=== PATIENT | male | born 1955 | race Caucasian/White ===

== ENCOUNTER → 2016-05-02 | Outpatient (CLI) | payer OTHER ==
[~2016-05-02] MED LIST: ABACTAB11 PO; ASPI81TA28 PO; ATOR10TA82 PO; CMD/25 PO; CYAN10004 SL; DARU600T2 PO; DULO60CA44 PO; ENOX120I SQ; ENOX80IN SQ; FLUT0.15 NAE; GLC/500 PO; HYDR-5688 PO; IMDSR30 PO; ISOS30TA3 PO; LISI-789 PO; LPT40 PO; MELO15TA4 PO; METO-217 PO; METO25TA56 PO; NRN/600 PO; NTRSLP4 SL; OXYB1TAB31 PO; PLV75 PO; PRLSR20 PO; RITO100T PO; TPRSR50 PO; VENL150T33 PO
[2016-05-03 16:31] LABS: LSP % CELLS ANALYZED CD4 28 % (30-61); LSP ABSOLUTE CT CD4 566 cells/uL (490-1740); LSP LYMPHOCYTES ABSOLUTE 2010 cells/uL (850-3900)
== END | disposition home or self-care (01) ==
LOC: C.LABBC 08:49
PROVIDERS: ATTEND Internal Medicine Infectious Disease
DX: B20 Human immunodeficiency virus [HIV] disease (principal)

== ENCOUNTER 2016-05-18 05:51 | Observation (INO) | payer OTHER ==
[2016-05-15 15:49] VITALS: BMI 24.0
--- NOTE | 2016-05-17 11:41 | HISTORY & PHYSICAL EXAMINATION ---
DATE OF ADMISSION: 05/18/2016 CHIEF COMPLAINT: Lower extremity weakness, claudication and inability to ambulate distances. WORKING DIAGNOSIS: Severe stenosis L3-L4, L4-L5, lesser at L5-1 and instability at L5-S1 with spondylolisthesis. He is being preoped for surgery tomorrow, decompression, laminectomy L3-4 and L4-5, possible instrumentation L5-S1 with spondylolisthesis. PAST MEDICAL HISTORY: Positive for angina, myocardial infarction in 2012, high cholesterol, abnormal EKG. Positive stress tests, anxiety, numbness, tingling. Positive for diabetes, positive DVT. Also history of arthritis, acid reflux. History of GERD, HIV positive, macular degeneration. SOCIAL HISTORY: Relocated from [place], [place]; reformed smoker. FAMILY HISTORY: Negative. ALLERGIES: PENICILLIN. MEDICATIONS: Listed and they are numerous. REVIEW OF SYSTEMS: Negative fevers, sweats, chills, night sweats. Denies any change in vision. No current angina, palpitations. No shortness of breath. Negative for diarrhea or constipation. No vomiting. No frequency, dysuria, hematuria. Positive for weakness, seizure activity. Positive for back pain, lower extremity difficulty. PHYSICAL EXAMINATION: VITAL SIGNS: Blood pressure 130/80, pulse of 80, respirations 18, O2 sat 90%. HEENT: Pupils react to light and accommodation. Ear, nose and throat clear. NECK: Supple, no masses. LUNGS: Clear to auscultation. CARDIAC: Regular rate and rhythm. No rubs, gallops or arrhythmias. NEUROLOGIC: Demonstrates some weakness of dorsiflexion, plantarflexion, quadriceps and iliopsoas strength. IMAGES: Demonstrate severe stenosis at L3-L4, L4-L5, lesser at L5-S1; instability L5-S1 and spondylolisthesis. IMPRESSION: Multilevel lumbar spinal stenosis, history of deep venous thrombosis, gastroesophageal reflux disease, HIV positive, history of macular degeneration, diabetes mellitus, coronary artery disease. DISPOSITION: He is scheduled for surgery tomorrow at [facility], which is the 18 of May. General anesthetic. The surgery will be approximately 2.5 hours in length. He will be hospitalized for 2 or 3 days. He may be a good candidate for rehabilitation. He is also being treated for his DVT, will be bridged and restarted up on medication, approximately 24 hours after his lumbar spine surgery.
[2016-05-18] VITALS (11 sets, daily range): BP systolic 94–130; BP diastolic 61–78; PULSE 55–99; TEMP 36.4–36.7; O2SAT 89–98; Ht 185.4 cm; Wt 83.2 kg
[~2016-05-18] VITALS: Ht 185.4 cm; Wt 83.2 kg
[~2016-05-18 05:51] MED LIST changes: -ATOR10TA82 PO; +ATOR10TA88 PO; -CYAN10004 SL; -DULO60CA44 PO; -ENOX120I SQ; -FLUT0.15 NAE; -HYDR-5688 PO; -IMDSR30 PO; -LPT40 PO; -METO-217 PO; -NTRSLP4 SL; -PLV75 PO; -TPRSR50 PO; -VENL150T33 PO
[2016-05-18] MEDS ORDERED: LACTATED RINGER'S 1000ML 1,000 ML IV SCH (06:00)
[2016-05-18] MEDS ORDERED: NSS 1000ML IV SCH (06:00)
[2016-05-18] MEDS ORDERED: LACTATED RINGER'S 1000ML IV SCH (06:00)
[2016-05-18] MEDS ORDERED: CLINDAMYCIN 600 MG/54 ML D5W 54 ML IV SCH (06:00)
[2016-05-18] MEDS ORDERED: FENTANYL CITRATE INJ 50 MCG/1 ML 2 ML VIAL ONE ×3 (06:19→09:56)
[2016-05-18] MEDS ORDERED: ONDANSETRON INJ 2 MG/ML 2 ML VIAL ONE (06:19)
[2016-05-18] MEDS ORDERED: PROPOFOL IV EMULSION 10 MG/ML 20 ML VIAL IV ONE (06:19)
[2016-05-18] MEDS ORDERED: MIDAZOLAM HCL 1 MG/ML 2ML VIAL ONE (06:19)
[2016-05-18] MEDS ORDERED: DEXAMETHASONE SOD INJ 4 MG/ML VIAL ONE (06:19)
[2016-05-18] MEDS ORDERED: ROCURONIUM BROMIDE 10 MG/ML 5 ML VIAL ONE ×3 (06:19→09:16)
[2016-05-18] MEDS ORDERED: LIDOCAINE HCL 2% 2 ML VIAL (20MG/ML) ONE ×2 (06:19→08:43)
[2016-05-18] MEDS ORDERED: NovoLIN-R INSULIN PER UNIT CHARGE ONE (06:44)
[2016-05-18 07:06] LABS: INR 0.9 (0.9-1.1); PROTHROMBIN TIME (PATIENT) 9.9 SECONDS (9.0-12.0)
--- NOTE | 2016-05-18 07:22 | History & Physical Bridge Note ---
H&P Re-Evaluation Bridge Note: I have examined the patient, reviewed the History & Physical and in the interval since the performance of the History & Physical I have noted the following changes of clinical significance: No changes noted
[2016-05-18] MEDS ORDERED: EpHEDrine SULFATE INJ 50 MG/ML AMP IV PRN (07:30)
[2016-05-18] MEDS ORDERED: ONDANSETRON INJ 2 MG/ML 2 ML VIAL IV PRN ×2 (07:30→10:00)
[2016-05-18] MEDS ORDERED: ATROPINE SULFATE 0.1 MG/ML 5ML SYR IV PRN (07:30)
[2016-05-18] MEDS ORDERED: KETAMINE HCL INJ 50 MG/ML 10 ML VIAL ONE (08:15)
[2016-05-18] MEDS ORDERED: ALBUMIN HUMAN 5% 12.5 GM/250 ML VIAL IV ONE (08:23)
[2016-05-18] MEDS ORDERED: NEOSTIGMINE METHYLSULFATE 5 MG/5 ML SYR ONE (09:16)
[2016-05-18] MEDS ORDERED: GLYCOPYRROLATE INJ 0.2 MG/ML VIAL ONE (09:16)
[2016-05-18] MEDS ORDERED: VASOPRESSIN 20 UNIT/ML VIAL ONE (09:22)
[2016-05-18] MEDS ORDERED: BACITRACIN 50000 UNIT VIAL IR ONE (09:29)
[2016-05-18] MEDS ORDERED: VANCOMYCIN HCL 1000MG/20ML VIAL TOP ONE (09:29)
[2016-05-18] MEDS ORDERED: BUPIVACAINE/EPINEPHRINE 0.5% MPF 1:200,000 30 ML VIAL INJ ONE (09:29)
[2016-05-18] MEDS ORDERED: THROMBIN FOR SOLN 20000 UNIT KIT TOP ONE (09:29)
[2016-05-18] MEDS ORDERED: GELATIN SPONGE SZ 100 TOP ONE (09:29)
--- NOTE | 2016-05-18 09:53 | [facility] Post Operative Brief Note ---
Immediate Operative Summary Operative Date May 18, 2016. Pre-Operative Diagnosis multilevel lumbar spinal stenosis Post-Operative Diagnosis multilevel lumbar spinal stenosis Procedure(s) Performed L3-L4, L4-L5 Laminectomy and L5-S1 Surgeon Dr. Gianluca Aden Software Engineer Intern Surgeon(s) Maikel Durbin PA-C Estimated Blood Loss 250ml Findings severe stenosis Specimens none per surgeon Dr. Gianluca Aden Complication(s) None Disposition Recovery Room / PACU
[2016-05-18] MEDS ORDERED: METOCLOPRAMIDE HCL INJ 5 MG/ML 2 ML VIAL IV PRN (10:00)
[2016-05-18] MEDS ORDERED: MAGNESIUM HYDROXIDE SUSP 30 ML UDC PO PRN (10:00)
[2016-05-18] MEDS ORDERED: LORAZEPAM INJ 1 MG in SYRINGE 0.5 ML IV PRN (10:00)
[2016-05-18] MEDS ORDERED: PROMETHAZINE HCL INJ 12.5 MG in SODIUM CHLORIDE 0.9% 50ML 50 ML IV PRN (10:00)
[2016-05-18] MEDS ORDERED: LORAZEPAM 1 MG TAB PO PRN (10:00)
[2016-05-18] MEDS ORDERED: HYDROmorphone INJ 2 MG/ML SYR/VIAL IV PRN (10:00)
[2016-05-18] MEDS ORDERED: ACETAMINOPHEN 325 MG TAB PO PRN (10:00)
[2016-05-18] MEDS ORDERED: OXYCODONE/ACETAMINOPHEN 5-325 TAB PO PRN (10:00)
--- NOTE | 2016-05-18 10:00 | DIAGNOSTIC IMAGING REPORT ---
INTRAOPERATIVE LUMBAR SPINE SINGLE VIEW CLINICAL HISTORY: L3-S1 LAMINECTOMY POSSIBLE FUSION COMPARISON STUDY: Outside lumbar spine dated 03/15/2016 FINDINGS: 2.5 seconds of fluoroscopic time was utilized. There are posterior skin retractors present. There is a grade 1 spondylolisthesis of L5 on S1. There is a metallic probe with its tip at the level of the posterior elements at the L5-S1 level. There is a second metallic probe with its tip projected over the posterior elements at the L3 level. IMPRESSION: Intraoperative localization fluoroscopic spot image as described above. Electronically signed by: Lane Mcclure M.D. 05/18/2016 9:57 AM Dictated Date/Time: 05/18/2016 9:56 AM
--- NOTE | 2016-05-18 10:08 | OPERATIVE REPORT ---
DATE OF OPERATION: 05/18/2016 PREOPERATIVE DIAGNOSIS: Severe stenosis of the spine, L3-L4, L4-L5, and L5-S1. POSTOPERATIVE DIAGNOSIS: Same. PROCEDURE: Include laminectomy L3-L4, L4-L5, and L5-S1 lumbar, and a posterior lateral fusion bone graft only, posterolateral fusion L3 to 4 to 5, 2 level fusion, note implants, no instrumentation, no pedicle screws. SURGEON: Dr. Aden. FLOOR COVERING PRINTER ASSISTANT: Maikel Durbin PA-C. COMPLICATIONS: Zero. BLOOD LOSS: 250. Sponge and needle count correct at the close of the procedure. OPERATION AND FINDINGS: The patient was taken to the operating room and general intubated anesthetic provided to the patient, placed prone, prepped and draped sterile. We took an x-ray. We knew the area location. We made a skin incision, fascial incision and put in some deep self-retaining retractors. We did decompress carefully the neural elements from L5-S1, L4-L5 and L3-L4 foraminotomies, partial facetectomy. We protected each and every nerve. There was no injury to the dura, nerve roots or vascular structures. I assessed stability. I did not feel there was any gross instability. We did sacrifice one-half of 1 facet at L3-L4 on the left hand side. There did not appear to be any spondylolisthesis. We did bone graft this with a combination of allograft and autograft over the transverse process of 3, 4 and 5. This was done bilaterally. We had irrigated thoroughly with about 600 mL of fluid, placed some Gelfoam over the dural structures that was exposed, vancomycin powder, closed over Hemovac drain with 1 Vicryl, 2-0 and staple gun on the skin. Sterile dressings applied. The patient returned to PACU stable. No apparent interoperative medical or anesthetic complications. I attest to the content of the Intraoperative Record and any orders documented therein. Any exceptio ns are noted below.
[2016-05-18] MEDS: FENTANYL CITRATE INJ 50 MCG/1 ML 2 ML VIAL IV PRN ×4 (10:20→10:35)
[2016-05-18] MEDS ORDERED: ALBUT/IPRATROP 3MG/0.5MG NEB 3 ML VIAL INH PRN (10:30)
[2016-05-18] MEDS: HYDROmorphone INJ 1 MG/ML SYR IV PRN ×6 (10:40→21:17)
--- NOTE | 2016-05-18 11:21 | Anesthesiology Progress Note ---
Anesthesia Post Op Note Date & Time May 18, 2016 at 11:21 Vital Signs Pain Intensity: 8 Vital Signs Past 12 Hours Date Time Temp Pulse Resp B/P Pulse Ox O2 Delivery O2 Flow Rate FiO2 05/18/16 11:13 37.6 05/18/16 11:08 97/66 05/18/16 11:05 86 16 97 05/18/16 11:05 86 16 05/18/16 11:03 92/59 05/18/16 11:00 85 16 95 05/18/16 11:00 84 16 05/18/16 10:59 83 16 99 05/18/16 10:59 83 16 05/18/16 10:58 105/60 05/18/16 10:54 84 16 05/18/16 10:54 83 16 94 05/18/16 10:53 97/58 05/18/16 10:51 85 16 97 05/18/16 10:51 85 16 05/18/16 10:48 98/64 05/18/16 10:46 84 16 05/18/16 10:46 84 16 95 05/18/16 10:43 105/60 05/18/16 10:41 82 16 88 05/18/16 10:41 82 16 05/18/16 10:40 102/65 05/18/16 10:39 80 16 95 05/18/16 10:39 81 16 05/18/16 10:34 79 16 100 05/18/16 10:34 79 16 05/18/16 10:33 81 12 101/60 100 05/18/16 10:33 80 12 05/18/16 10:28 78 12 05/18/16 10:28 79 12 99/62 100 05/18/16 10:23 83 25 99/61 95 05/18/16 10:23 83 25 05/18/16 10:18 87 12 102/62 100 05/18/16 10:18 87 12 05/18/16 10:17 86 18 100 05/18/16 10:17 86 18 05/18/16 10:13 108/65 05/18/16 10:12 86 16 05/18/16 10:12 86 16 99 05/18/16 10:10 107/70 05/18/16 10:07 93 24 05/18/16 10:07 93 24 99 05/18/16 10:03 115/71 05/18/16 10:02 94 21 05/18/16 10:02 94 21 98 05/18/16 09:58 119/69 05/18/16 09:57 97 20 97 05/18/16 09:57 97 20 05/18/16 09:53 94/63 05/18/16 09:52 36.4 98 18 112/65 97 Mask 10 05/18/16 09:52 98 17 05/18/16 09:52 98 17 97 05/18/16 06:34 36.6 85 20 118/76 97 Room Air Notes Mental Status: alert / awake / arousable, participated in evaluation Pt Amnestic to Procedure: Yes Nausea / Vomiting: adequately controlled Pain: adequately controlled, improving with treatment Airway Patency, RR, SpO2: stable & adequate BP & HR: stable & adequate Hydration State: stable & adequate Anesthetic Complications: no major complications apparent
[2016-05-18] MEDS: SODIUM CHLORIDE 0.9% 1000ML 1,000 ML IV SCH ×2 (12:15→21:50)
[2016-05-18] MEDS ORDERED: IV FLUIDS COMPLETED PRN (12:15)
[2016-05-18] MEDS ORDERED: HydrALAZINE HCL 20 MG/ML VIAL IV. PRN (13:45)
[2016-05-18] MEDS ORDERED: GLUCOSE 10 TABS/TUBE PO PRN (14:00)
[2016-05-18] MEDS ORDERED: DEXTROSE 50% 50 ML SYR IV PRN (14:00)
[2016-05-18] MEDS ORDERED: GLUCOSE 40% GEL 15 GM TUBE PO PRN (14:00)
[2016-05-18] MEDS ORDERED: GLUCAGON FOR INJ 1 MG VIAL SQ PRN (14:00)
[2016-05-18] MEDS: DEXAMETHASONE INJ 10 MG in SYRINGE 0 ML IV SCH ×2 (14:07→21:50)
[2016-05-18] MEDS: GABAPENTIN 600 MG TAB PO SCH ×2 (14:07→21:16)
--- NOTE | 2016-05-18 14:33 | Medical Consult ---
Consultation Date of Consultation: May 18, 2016. Attending Physician: Gianluca Aden DO Reason for Consultation: Medical management History of Present Illness Patient is a pleasant 60 y/o male, with PMHx of CAD s/p IL, angina, anxiety, T2DM, GERD, HIV+, DVT, HDL, macular degeneration, s/p decompression and laminectomy of L3-4 and L4-5 on 05/[address] Aden. Patient is feeling a little groggy postop. Denies any nausea or vomiting. Pain is currently well controlled. No passing gas/BM. Patient denies any fever, chills, sweats, lightheadedness, dizziness, vision changes, CP, palpitations, edema, SOB, wheezing, cough, abdominal pain, nausea, vomiting, diarrhea, urinary symptoms, melena, numbness/tingling, weakness, muscle/joint pain, anxiety/depression, active bleeding, or new skin discoloration/changes. Past Medical/Surgical History 1. CAD s/p [place] in 2012 2. Angina 3. Anxiety 4. T2DM 5. GERD 6. Macular degeneration 7. HIV + 8. Urinary incontinence 9. DVT 10. HDL Family History 1. Cardiac disorder 2. Cancer Social History Smoking Status: Former Smoker Housing Status: lives alone Occupation Status: retired (Worked at [employer] ) Allergies Coded Allergies: Penicillins (Unverified Allergy, Mild, RASH, 05/18/16) Current Inpatient Medications Current Inpatient Medications Medications (Trade) Dose Ordered Sig/Margot Route Start Time Stop Time Status Last Admin Dose Admin Sodium Chloride 1,000 ml @ 15 mls/hr Q24H IV 05/18/16 06:00 05/19/16 05:59 05/18/16 07:05 15 MLS/HR Clindamycin Phosphate (Cleocin 600mg/ 54ml D5W) 54 ml @ 100 mls/hr PREOP IV 05/18/16 06:00 05/18/16 18:00 05/18/16 07:32 100 MLS/HR Acetaminophen (Tylenol Tab) 650 mg Q6H PRN PO 05/18/16 10:00 06/17/16 09:59 Hydromorphone HCl (Dilaudid Inj) 1 mg Q3H PRN IV 05/18/16 10:00 06/01/16 09:59 05/18/16 13:03 1 MG Hydromorphone HCl 1.5 mg 1.5 mg Q3H PRN IV 05/18/16 10:00 06/01/16 09:59 Promethazine HCl/ Sodium Chloride (Phenergan Inj/ Nss 50ml) 50.5 ml @ 202 mls/hr Q6H PRN IV 05/18/16 10:00 06/17/16 09:59 Ondansetron HCl (Zofran Inj) 4 mg Q6H PRN IV 05/18/16 10:00 06/17/16 09:59 Metoclopramide HCl (Reglan Inj) 10 mg Q6H PRN IV 05/18/16 10:00 06/17/16 09:59 Lorazepam 1 mg 1 mg Q6H PRN PO 05/18/16 10:00 06/17/16 09:59 Lorazepam/Syringe (Ativan Inj/ Syringe) 1 ml @ 1 mls/min Q6H PRN IV 05/18/16 10:00 06/17/16 09:59 Polyethylene (Miralax Powder Packet) 17 gm DAILY PO 05/19/16 09:00 06/18/16 08:59 Bisacodyl (Dulcolax Tab) 5 mg DAILY PRN PO 05/19/16 06:00 06/18/16 05:59 Bisacodyl (Dulcolax Supp) 10 mg DAILY PRN VA 05/19/16 06:00 06/18/16 05:59 Magnesium Hydroxide (Milk Of Magnesia Susp) 30 ml DAILY PRN PO 05/18/16 10:00 06/17/16 09:59 Diphenhydramine HCl (Benadryl Cap) 25 mg Q6H PRN PO 05/18/16 10:00 06/17/16 09:59 Oxycodone/ Acetaminophen (Percocet 5-325mg Tab) 1 tab Q4H PRN PO 05/18/16 10:00 06/01/16 09:59 Oxycodone/ Acetaminophen 2 tab 2 tab Q4H PRN PO 05/18/16 10:00 06/01/16 09:59 Clindamycin Phosphate 600 mg/ Dextrose 54 ml @ 100 mls/hr Q8H IV 05/18/16 16:00 05/19/16 00:33 Dexamethasone Sodium Phosphate 10 mg/Syringe 2.5 ml @ 1 mls/min Q8H IV 05/18/16 14:00 05/19/16 22:03 Sodium Chloride (Nss 1000ml) 1,000 ml @ 80 mls/hr [id number] IV 05/18/16 09:49 06/17/16 09:48 05/18/16 12:15 80 MLS/HR Aspirin (Ecotrin Tab) 81 mg QAM PO 05/19/16 09:00 06/18/16 08:59 Atorvastatin Calcium (Lipitor Tab) 10 mg HS PO 05/18/16 21:00 06/17/16 20:59 Gabapentin (Neurontin Tab) 600 mg TID PO 05/18/16 14:00 06/17/16 13:59 Isosorbide Mononitrate (Imdur Ext Rel Tab) 60 mg QAM PO 05/19/16 09:00 06/18/16 08:59 Lisinopril (Zestril Tab) 2.5 mg QAM PO 05/19/16 09:00 06/18/16 08:59 Metformin HCl (Glucophage Tab) 500 mg QAM PO 05/19/16 09:00 06/18/16 08:59 Metoprolol Tartrate (Lopressor Tab) 25 mg BID PO 05/18/16 21:00 06/17/16 20:59 Oxybutynin Chloride (Ditropan-Xl Tab) 5 mg QAM PO 05/19/16 09:00 06/18/16 08:59 Abacavir/ Lamivudine (Epzicom) 1 tab QAM PO 05/19/16 09:00 06/18/16 08:59 Non-Formulary Medication (Darunavir Ethanolate (Prezista)) 600 mg BID PO 05/18/16 21:00 06/17/16 20:59 UNV Meloxicam (Mobic Tab) 15 mg QAM PO 05/19/16 09:00 06/18/16 08:59 Omeprazole (Prilosec - Substitute) 20 mg QAM PO 05/19/16 09:00 06/18/16 08:59 Ritonavir (Norvir) 100 BID PO 05/18/16 21:00 06/17/16 20:59 Albuterol/ Ipratropium (Duoneb) 3 ml ONE PRN INH 05/18/16 10:30 05/18/16 15:30 Miscellaneous (Iv Fluids Completed) 1 ea PRN PRN N/A 05/18/16 12:15 05/18/17 12:14 Physical Exam Date Time Temp Pulse Resp B/P Pulse Ox O2 Delivery O2 Flow Rate FiO2 05/18/16 13:11 96 18 96/61 95 Nasal Cannula 2.0 05/18/16 12:40 36.4 85 16 107/61 96 Room Air 05/18/16 12:10 95 Nasal Cannula 2.0 05/18/16 12:10 95 Nasal Cannula 2.0 05/18/16 12:10 36.6 55 16 108/68 95 Nasal Cannula 2.0 05/18/16 12:00 105/69 05/18/16 11:55 86 16 05/18/16 11:55 85 16 97 05/18/16 11:50 87 19 05/18/16 11:50 86 19 98 05/18/16 11:49 88 18 98 05/18/16 11:49 89 18 05/18/16 11:47 116/82 05/18/16 11:44 87 16 95 05/18/16 11:44 88 16 05/18/16 11:39 88 16 95 05/18/16 11:39 88 16 05/18/16 11:34 88 13 95 05/18/16 11:34 87 13 05/18/16 11:29 86 14 05/18/16 11:29 85 14 96 05/18/16 11:28 100/62 05/18/16 11:25 87 14 05/18/16 11:25 87 14 96 05/18/16 11:20 85 16 97 05/18/16 11:20 85 16 05/18/16 11:19 85 16 05/18/16 11:19 85 16 94 05/18/16 11:18 104/63 05/18/16 11:14 83 15 100/59 96 05/18/16 11:14 84 15 05/18/16 11:13 87/59 05/18/16 11:13 37.6 05/18/16 11:09 85 16 05/18/16 11:09 84 16 97 05/18/16 11:08 97/66 1/19/17 11:05 86 16 97 05/18/16 11:05 86 16 05/18/16 11:03 92/59 05/18/16 11:00 85 16 95 05/18/16 11:00 84 16 05/18/16 10:59 83 16 99 05/18/16 10:59 83 16 05/18/16 10:58 105/60 05/18/16 10:54 84 16 05/18/16 10:54 83 16 94 05/18/16 10:53 97/58 05/18/16 10:51 85 16 97 05/18/16 10:51 85 16 05/18/16 10:48 98/64 05/18/16 10:46 84 16 05/18/16 10:46 84 16 95 05/18/16 10:43 105/60 05/18/16 10:41 82 16 88 05/18/16 10:41 82 16 05/18/16 10:40 102/65 05/18/16 10:39 80 16 95 05/18/16 10:39 81 16 05/18/16 10:34 79 16 100 05/18/16 10:34 79 16 05/18/16 10:33 81 12 101/60 100 05/18/16 10:33 80 12 05/18/16 10:30 79 16 98 Nasal Cannula 4.0 05/18/16 10:28 78 12 05/18/16 10:28 79 12 99/62 100 05/18/16 10:23 83 25 99/61 95 05/18/16 10:23 83 25 05/18/16 10:18 87 12 102/62 100 05/18/16 10:18 87 12 05/18/16 10:17 86 18 100 05/18/16 10:17 86 18 05/18/16 10:13 108/65 05/18/16 10:12 86 16 05/18/16 10:12 86 16 99 05/18/16 10:10 107/70 05/18/16 10:07 93 24 05/18/16 10:07 93 24 99 05/18/16 10:03 115/71 05/18/16 10:02 94 21 05/18/16 10:02 94 21 98 05/18/16 09:58 119/69 05/18/16 09:57 97 20 97 05/18/16 09:57 97 20 05/18/16 09:53 94/63 05/18/16 09:52 36.4 98 18 112/65 97 Mask 10 05/18/16 09:52 98 17 05/18/16 09:52 98 17 97 05/18/16 06:34 36.6 85 20 118/76 97 Room Air General Appearance: WD/WN, no apparent distress Head: normocephalic, atraumatic Eyes: normal inspection, PERRL ENT: hearing grossly normal Neck: supple Respiratory/Chest: lungs clear, no respiratory distress, no accessory muscle use Cardiovascular: regular rate, rhythm, no edema, normal peripheral pulses Abdomen/GI: non tender, soft, + pertinent finding (hypoactive BS ) Extremities/Musculoskelatal: no calf tenderness, no pedal edema, + pertinent finding (SCDs on ) Neurologic/Psych: alert, normal mood/affect, oriented x 3 Skin: normal color, warm/dry, no rash Laboratory Results Last 24 Hours Test 05/18/16 06:27 05/18/16 06:29 05/18/16 07:19 05/18/16 08:59 Prothrombin Time 9.9 SECONDS Prothromb Time International Ratio 0.9 Activated Partial Thromboplast Time 25.4 SECONDS Partial Thromboplastin Ratio 1.0 Bedside Glucose 231 mg/dl 157 mg/dl Test 05/18/16 10:01 Bedside Glucose 201 mg/dl Assessment & Plan 60 y/o male, with PMHx of CAD s/p IL, angina, anxiety, T2DM, GERD, HIV+, DVT, HDL, macular degeneration, s/p decompression and laminectomy of L3-4 and L4-5 on 05/[address] Aden - Pain management, PT/OT, and DVT prophylaxis as per primary team - Follow CBC and PRP CAD s/p IL in 2013: - Continue Imdur 30 mg PO daily - Continue Metoprol 25 mg PO BID - Continue ASA 81 mg PO daily Degenerative disease: - Hold Mobic 15 mg PO daily- check kidney function prior to restarting - Gabapentin 600 mg PO TID T2DM: - Hold Metformin 500 mg PO BID - BSG ACHS - Sliding insulin scale - Hold Lisinopril 2.5 mg PO daily- denies hx of HTN- check kidney function prior to restarting -- Added Hydralazine 10 mg IV q6 hrs PRN for sbp >170 or dbp >100 Hyperlipidemia: - Continue Atorvastatin 20 mg PO daily hx of DVT (right lower extremity): - Anticoagulation was d/c'd due to procedure. Spoke with Dr. Aden, may resume anticoagulation ~30 hours postop- he is OK with resuming tomorrow (05/19) evening. - U/S of right lower extremity on 04/04/16- There is extensive nonocclusive deep venous thrombosis seen throughout the extremity, extending from the proximal superficial femoral vein into the calf. The common femoral vein is patent and normally compressible. The greater saphenous vein and the profunda femoris vein at the junction with the common femoral vein are clear. GERD: - Protonix 40 mg PO daily HIV+ - Continue home regimen DVT prophylaxis: - As per primary team - MAURA and SCDs Dispo: - Discharge as per primary team - Patient lives in apartment alone Thank you for this consultation. We will continue to follow throughout hospital stay. Attending Consult Note & Attestation: Pt seen/examined, chart reviewed, and care plan d/w RAJAT Cordova. I agree w/ the the duenas components of her documentation. 60yo male with known HIV+ status, CAD s/p IL, T2DM, hyperlipidemia, and recent RLE DVT in 03/2016 who presented today for elective lumbar laminectomy procedure by Dr. Gianluca Aden. He was bridged with lovenox injections until yesterday (was on coumadin prior). He reports several months of dyspnea on exertion and nightsweats but no weight loss. Appetite has been normal. HIV is being managed by Dr. Constance Smyth. In the PACU apparently the patient experienced mild dyspnea but no chest pain. He was given NC O2 with relief of symptoms. During my visit he denies any cp, orthopnea, or sob. Denies cough. PMH, PSH, allergies, meds, sochx, famhx, ros - reviewed vitals stable, afebrile, o2 sats normal gen - NAD, pleasant mouth - cleft palate repair noted; cleft lip repair also noted neck - JVD present heart - RRR, s1, s2, 1/6 YOSI LSB lungs - CTA b/l, mildly decreased in the bases abd - soft, NT, ND, BS+, no HSM ext - no edema, SCDs in place labs - FSBS <250 since the OR Cr 0.9 Hb 10.2 A/P: 1. s/p lumbar laminectomy by Dr. Aden today 2. RLE DVT, dx 03/2016, previously on coumadin then lovenox bridge pre-op 3. HIV+ status on appropriate Rx 4. T2DM, uncontrolled 5. CAD s/p [place] 2012 6. acute blood loss anemia 2nd to #1 above Check STAT EKG to ensure dyspnea following surgery was not anginal equivalent Check troponins Add lantus at HS for improved glycemic control as he will be taking IV decadron ; agree w/ holding metformin Hold lisinopril Add iron supplementation next 1-2 days Cont HIV meds Resume therapeutic lovenox as soon as it is deemed safe by Dr. Aden If sob continues I would be concerned about VTE / PE event Robin Sal MD
[2016-05-18 15:37] LABS: HEMATOCRIT 28.2 % (42-52); MEAN CELL VOLUME 98.6 fL (80-100); MEAN CORPUSCULAR HEMOGLOBIN 35.7 pg (25-34); MEAN CORPUSCULAR HGB CONC 36.2 g/dl (32-36); MEAN PLATELET VOLUME 9.4 fL (7.4-10.4); PLATELET COUNT 139 K/uL (130-400); RED BLOOD COUNT 2.86 M/uL (4.7-6.1)
[2016-05-18 15:56] LABS: BUN/CREATININE RATIO 21.9 (10-20); CREATININE 0.91 mg/dl (0.60-1.40); POTASSIUM 4.7 mmol/L (3.5-5.1)
[2016-05-18] MEDS: CLINDAMYCIN IV 600 MG in DEXTROSE 5% ADD-VANTAGE 50ML 50 ML IV SCH ×2 (16:14→23:57)
[2016-05-18] MEDS: INSULIN ASPART 100 UNITS/ML 3 ML PEN SC SCH ×2 (18:41→21:20)
[2016-05-18] MEDS ORDERED: INSULIN GLARGINE SOLOSTAR 100 UNITS/ML 3 ML PEN SC SCH (21:00)
[2016-05-18] MEDS: ATORVASTATIN 10 MG TAB PO SCH (21:16)
[2016-05-18] MEDS: METOPROLOL TARTRATE 25 MG TAB PO SCH (21:16)
[2016-05-18] MEDS: RITONAVIR 100 MG TAB PO SCH (21:25)
[2016-05-18] MEDS: DARUNAVIR ETHANOLATE 600 MG TAB PO SCH (21:26)
[2016-05-19 03:40] VITALS: BP 126/73; PULSE 83; TEMP 36.6; O2SAT 96
[2016-05-19] MEDS: DEXAMETHASONE INJ 10 MG in SYRINGE 0 ML IV SCH ×3 (05:48→21:53)
[2016-05-19] MEDS ORDERED: BISACODYL 5 MG TABEC PO PRN (06:00)
[2016-05-19] MEDS ORDERED: BISACODYL 10 MG SUPP PR PRN (06:00)
[2016-05-19] MEDS ORDERED: NURSING VERBAL MED ORDER ONE (06:00)
[2016-05-19 07:06] VITALS: BP 115/71; PULSE 79; TEMP 36.6; O2SAT 95
[2016-05-19 07:28] LABS: HEMATOCRIT 31.2 % (42-52); MEAN CELL VOLUME 99.7 fL (80-100); MEAN CORPUSCULAR HEMOGLOBIN 35.1 pg (25-34); MEAN CORPUSCULAR HGB CONC 35.3 g/dl (32-36); MEAN PLATELET VOLUME 9.9 fL (7.4-10.4); PLATELET COUNT 169 K/uL (130-400); RED BLOOD COUNT 3.13 M/uL (4.7-6.1); WHITE BLOOD COUNT 9.99 K/uL (4.8-10.8)
--- NOTE | 2016-05-19 07:32 | Anesthesiology Progress Note ---
Anesthesia Post Op Note Date & Time May 19, 2016 at 07:32 Vital Signs Vital Signs Past 12 Hours Date Time Temp Pulse Resp B/P Pulse Ox O2 Delivery O2 Flow Rate FiO2 05/19/16 03:40 36.6 83 14 126/73 96 Room Air 05/19/16 00:00 Room Air 05/18/16 23:05 93 Nasal Cannula 2.0 05/18/16 23:04 36.6 90 16 110/69 89 Room Air 05/18/16 21:06 99 117/71 94 Room Air 05/18/16 19:45 36.5 84 18 130/78 95 Nasal Cannula 2.0 Notes Mental Status: alert / awake / arousable, participated in evaluation Pt Amnestic to Procedure: Yes Nausea / Vomiting: adequately controlled Pain: adequately controlled Airway Patency, RR, SpO2: stable & adequate BP & HR: stable & adequate Hydration State: stable & adequate Anesthetic Complications: no major complications apparent
[2016-05-19 07:40] LABS: PROTHROMBIN TIME (PATIENT) 10.8 SECONDS (9.0-12.0)
[2016-05-19 08:00] LABS: BUN/CREATININE RATIO 17.9 (10-20); CALCIUM 8.4 mg/dl (8.5-10.1); CREATININE 0.92 mg/dl (0.60-1.40); POTASSIUM 4.3 mmol/L (3.5-5.1)
[2016-05-19] MEDS: OXYCODONE/ACETAMINOPHEN 5-325 TAB PO PRN ×2 (08:11→16:30)
[2016-05-19] MEDS: POLYETHYLENE (MIRALAX) 17 GM PACK PO SCH (08:58)
[2016-05-19] MEDS: GABAPENTIN 600 MG TAB PO SCH ×3 (08:58→21:19)
[2016-05-19 09:00] VITALS: BP 117/67; PULSE 79
[2016-05-19] MEDS ORDERED: INSULIN GLARGINE SOLOSTAR 100 UNITS/ML 3 ML PEN SC SCH (09:00)
[2016-05-19] MEDS ORDERED: LISINOPRIL 2.5 MG TAB PO SCH (09:00)
[2016-05-19] MEDS ORDERED: MELOXICAM 7.5 MG TAB PO SCH (09:00)
[2016-05-19] MEDS ORDERED: METFORMIN HCL 500 MG TAB PO SCH (09:00)
[2016-05-19] MEDS: ISOSORBIDE MONONITRATE 30 MG TABCR PO SCH (09:01)
[2016-05-19] MEDS: METOPROLOL TARTRATE 25 MG TAB PO SCH ×2 (09:01→21:19)
[2016-05-19] MEDS: OXYBUTYNIN CHLORIDE 5 MG TABCR PO SCH (09:22)
[2016-05-19] MEDS: [UNRECOGNIZED DRUG - OTHER] PO SCH (09:23)
[2016-05-19] MEDS: RITONAVIR 100 MG TAB PO SCH ×2 (09:23→21:52)
[2016-05-19] MEDS: ASPIRIN 81 MG ECTAB PO SCH (09:23)
[2016-05-19] MEDS: DARUNAVIR ETHANOLATE 600 MG TAB PO SCH ×2 (09:24→21:52)
[2016-05-19] MEDS: INSULIN ASPART 100 UNITS/ML 3 ML PEN SC SCH ×4 (09:39→21:51)
[2016-05-19 10:43] VITALS: BP 136/75; PULSE 81; O2SAT 96
[2016-05-19 12:35] VITALS: BP 116/71; PULSE 85; TEMP 36.3; O2SAT 94
--- NOTE | 2016-05-19 12:35 | Hospitalist Progress Note ---
Hospitalist Progress Note Date of Service May 19, 2016. (Breana Cordova ., PA-C) Subjective Pt evaluation today including: conversation w/ patient, physical exam, chart review, lab review, review of studies, review of inpatient medication list Patient states he is feeling OK. Patient is very worried about health status and everything going on. Pain 10/07. +SOB but improving since yesterday. He is eating and drinking OK. +passing gas/no BM postop. +numbness/tingling of bilateral lower extremities from knee distally overnight, resolved. Patient denies any fever, chills, sweats, lightheadedness, dizziness, vision changes, CP , palpitations, edema, wheezing, cough, abdominal pain, nausea, vomiting, diarrhea, urinary symptoms, melena, weakness, muscle/joint pain, anxiety/ depression, active bleeding, or new skin discoloration/changes. (Breana Cordova ., PA-C) Medications Current Inpatient Medications Medications (Trade) Dose Ordered Sig/Margot Route Start Time Stop Time Status Last Admin Dose Admin Acetaminophen (Tylenol Tab) 650 mg Q6H PRN PO 05/18/16 10:00 06/17/16 09:59 Hydromorphone HCl (Dilaudid Inj) 1 mg Q3H PRN IV 05/18/16 10:00 06/01/16 09:59 05/18/16 21:17 1 MG Hydromorphone HCl 1.5 mg 1.5 mg Q3H PRN IV 05/18/16 10:00 06/01/16 09:59 05/19/16 02:14 1.5 MG Promethazine HCl/ Sodium Chloride (Phenergan Inj/ Nss 50ml) 50.5 ml @ 202 mls/hr Q6H PRN IV 05/18/16 10:00 06/17/16 09:59 Ondansetron HCl (Zofran Inj) 4 mg Q6H PRN IV 05/18/16 10:00 06/17/16 09:59 Metoclopramide HCl (Reglan Inj) 10 mg Q6H PRN IV 05/18/16 10:00 06/17/16 09:59 Lorazepam 1 mg 1 mg Q6H PRN PO 05/18/16 10:00 06/17/16 09:59 Lorazepam/Syringe (Ativan Inj/ Syringe) 1 ml @ 1 mls/min Q6H PRN IV 05/18/16 10:00 06/17/16 09:59 Polyethylene (Miralax Powder Packet) 17 gm DAILY PO 05/19/16 09:00 06/18/16 08:59 05/19/16 08:58 17 GM Bisacodyl (Dulcolax Tab) 5 mg DAILY PRN PO 05/19/16 06:00 06/18/16 05:59 Bisacodyl (Dulcolax Supp) 10 mg DAILY PRN TX 05/19/16 06:00 06/18/16 05:59 Magnesium Hydroxide (Milk Of Magnesia Susp) 30 ml DAILY PRN PO 05/18/16 10:00 06/17/16 09:59 Diphenhydramine HCl (Benadryl Cap) 25 mg Q6H PRN PO 05/18/16 10:00 06/17/16 09:59 Oxycodone/ Acetaminophen (Percocet 5-325mg Tab) 1 tab Q4H PRN PO 05/18/16 10:00 06/01/16 09:59 Oxycodone/ Acetaminophen 2 tab 2 tab Q4H PRN PO 05/18/16 10:00 06/01/16 09:59 05/19/16 08:11 2 TAB Dexamethasone Sodium Phosphate/ Syringe (Decadron Inj/ Syringe) 2.5 ml @ 1 mls/min Q8H IV 05/18/16 14:00 05/19/16 22:03 05/19/16 05:48 1 MLS/MIN Aspirin (Ecotrin Tab) 81 mg QAM PO 05/19/16 09:00 06/18/16 08:59 05/19/16 09:23 81 MG Atorvastatin Calcium (Lipitor Tab) 10 mg HS PO 05/18/16 21:00 06/17/16 20:59 05/18/16 21:16 10 MG Gabapentin (Neurontin Tab) 600 mg TID PO 05/18/16 14:00 06/17/16 13:59 05/19/16 08:58 600 MG Isosorbide Mononitrate (Imdur Ext Rel Tab) 60 mg QAM PO 05/19/16 09:00 06/18/16 08:59 05/19/16 09:01 60 MG Lisinopril (Zestril Tab) 2.5 mg QAM PO 05/19/16 09:00 06/18/16 08:59 Future Hold Metformin HCl (Glucophage Tab) 500 mg QAM PO 05/19/16 09:00 06/18/16 08:59 Future Hold Metoprolol Tartrate (Lopressor Tab) 25 mg BID PO 05/18/16 21:00 06/17/16 20:59 05/19/16 09:01 25 MG Oxybutynin Chloride (Ditropan-Xl Tab) 5 mg QAM PO 05/19/16 09:00 06/18/16 08:59 05/19/16 09:22 5 MG Abacavir/ Lamivudine (Epzicom) 1 tab QAM PO 05/19/16 09:00 06/18/16 08:59 05/19/16 09:23 1 TAB Non-Formulary Medication (Darunavir Ethanolate (Prezista)) 600 mg BID PO 05/18/16 21:00 06/17/16 20:59 UNV Meloxicam (Mobic Tab) 15 mg QAM PO 05/19/16 09:00 06/18/16 08:59 Future Hold Omeprazole (Prilosec - Substitute) 20 mg QAM PO 05/19/16 09:00 06/18/16 08:59 05/19/16 09:24 20 MG Ritonavir (Norvir) 100 BID PO 05/18/16 21:00 06/17/16 20:59 05/19/16 09:23 100 Miscellaneous (Iv Fluids Completed) 1 ea PRN PRN N/A 05/18/16 12:15 05/18/17 12:14 Insulin Aspart (novoLOG ASPART) SLIDING SCALE G... ACHS SC 05/18/16 17:15 06/17/16 17:14 05/19/16 09:39 4 UNITS Hydralazine HCl (HydrALAZINE INJ) 10 mg Q6H PRN IV. 05/18/16 13:45 06/17/16 13:44 Glucose (Glucose 40% Gel) 15-30 GRAMS 15 GRAMS... UD PRN PO 05/18/16 14:00 06/17/16 13:59 Glucose (Glucose Chew Tab) 4-8 Tablets 4 Tabl... UD PRN PO 05/18/16 14:00 06/17/16 13:59 Dextrose (Dextrose 50% 50ML Syringe) 25-50ML OF 50% DW IV FOR... UD PRN IV 05/18/16 14:00 06/17/16 13:59 Glucagon (Glucagon Inj) 1 mg UD PRN SQ 05/18/16 14:00 06/17/16 13:59 Insulin Glargine (Lantus Solostar Pen) 10 unit BID SC 05/19/16 09:00 06/18/16 08:59 05/19/16 09:44 10 UNIT (Breana Cordova, BRADLEY) Objective Vital Signs Date Time Temp Pulse Resp B/P Pulse Ox O2 Delivery O2 Flow Rate FiO2 05/19/16 03:40 36.6 83 14 126/73 96 Room Air 05/19/16 00:00 Room Air 05/18/16 23:05 93 Nasal Cannula 2.0 05/18/16 23:04 36.6 90 16 110/69 89 Room Air 05/18/16 21:06 99 117/71 94 Room Air 05/18/16 19:45 36.5 84 18 130/78 95 Nasal Cannula 2.0 05/18/16 16:05 Nasal Cannula 2.0 05/18/16 15:10 36.7 88 18 109/63 96 Nasal Cannula 2.0 05/18/16 14:10 95 18 94/62 95 Nasal Cannula 2.0 05/18/16 13:11 96 18 96/61 95 Nasal Cannula 2.0 05/18/16 12:40 36.4 85 16 107/61 96 Room Air 05/18/16 12:10 95 Nasal Cannula 2.0 05/18/16 12:10 95 Nasal Cannula 2.0 05/18/16 12:10 36.6 55 16 108/68 95 Nasal Cannula 2.0 05/18/16 12:00 105/69 05/18/16 11:55 86 16 05/18/16 11:55 85 16 97 05/18/16 11:50 87 19 05/18/16 11:50 86 19 98 05/18/16 11:49 88 18 98 05/18/16 11:49 89 18 05/18/16 11:47 116/82 05/18/16 11:44 87 16 95 17 11:44 88 16 05/18/16 11:39 88 16 95 17 11:39 88 16 05/18/16 11:34 88 13 95 17 11:34 87 13 17 11:29 86 14 17 11:29 85 14 96 17 11:28 100/62 05/18/16 11:25 87 14 05/18/16 11:25 87 14 96 05/18/16 11:20 85 16 97 05/18/16 11:20 85 16 05/18/16 11:19 85 16 05/18/16 11:19 85 16 94 05/18/16 11:18 104/63 05/18/16 11:14 83 15 100/59 96 17 11:14 84 15 05/18/16 11:13 87/59 05/18/16 11:13 37.6 05/18/16 11:09 85 16 05/18/16 11:09 84 16 97 05/18/16 11:08 97/66 05/18/16 11:05 86 16 97 05/18/16 11:05 86 16 05/18/16 11:03 92/59 05/18/16 11:00 85 16 95 05/18/16 11:00 84 16 17 10:59 83 16 99 05/18/16 10:59 83 16 17 10:58 105/60 05/18/16 10:54 84 16 05/18/16 10:54 83 16 94 17 10:53 97/58 17 10:51 85 16 97 05/18/16 10:51 85 16 17 10:48 98/64 17 10:46 84 16 17 10:46 84 16 95 17 10:43 105/60 17 10:41 82 16 88 17 10:41 82 16 17 10:40 102/65 17 10:39 80 16 95 17 10:39 81 16 17 10:34 79 16 100 17 10:34 79 16 05/18/16 10:33 81 12 101/60 100 05/18/16 10:33 80 12 05/18/16 10:30 79 16 98 Nasal Cannula 4.0 05/18/16 10:28 78 12 05/18/16 10:28 79 12 99/62 100 05/18/16 10:23 83 25 99/61 95 05/18/16 10:23 83 25 05/18/16 10:18 87 12 102/62 100 05/18/16 10:18 87 12 05/18/16 10:17 86 18 100 05/18/16 10:17 86 18 05/18/16 10:13 108/65 05/18/16 10:12 86 16 05/18/16 10:12 86 16 99 05/18/16 10:10 107/70 05/18/16 10:07 93 24 05/18/16 10:07 93 24 99 05/18/16 10:03 115/71 05/18/16 10:02 94 21 05/18/16 10:02 94 21 98 05/18/16 09:58 119/69 05/18/16 09:57 97 20 97 05/18/16 09:57 97 20 05/18/16 09:53 94/63 05/18/16 09:52 36.4 98 18 112/65 97 Mask 10 05/18/16 09:52 98 17 05/18/16 09:52 98 17 97 (Breana Cordova, PA-C) Physical Exam General Appearance: WD/WN, no apparent distress Eyes: PERRL ENT: hearing grossly normal Neck: supple Respiratory/Chest: lungs clear, no respiratory distress, no accessory muscle use Cardiovascular: regular rate, rhythm, no edema Abdomen: normal bowel sounds, non tender, soft Extremities: non-tender, no pedal edema, + pertinent finding (TEDs on ) Neurologic/Psychiatric: alert, oriented x 3, + depressed affect Skin: normal color, warm/dry, no rash (Breana Cordova, PA-C) Laboratory Results Last 24 Hours Test 05/18/16 08:59 05/18/16 10:01 05/18/16 15:27 05/18/16 16:50 Bedside Glucose 157 mg/dl 201 mg/dl 213 mg/dl White Blood Count 7.90 K/uL Red Blood Count 2.86 M/uL Hemoglobin 10.2 g/dL Hematocrit 28.2 % Mean Corpuscular Volume 98.6 fL Mean Corpuscular Hemoglobin 35.7 pg Mean Corpuscular Hemoglobin Concent 36.2 g/dl RDW Standard Deviation 48.6 fL RDW Coefficient of Variation 13.5 % Platelet Count 139 K/uL Mean Platelet Volume 9.4 fL Sodium Level 140 mmol/L Potassium Level 4.7 mmol/L Chloride Level 107 mmol/L Carbon Dioxide Level 23 mmol/L Anion Gap 10.0 mmol/L Blood Urea Nitrogen 20 mg/dl Creatinine 0.91 mg/dl Est Creatinine Clear Calc Drug Dose 95.1 ml/min Estimated GFR () 104.3 Estimated GFR (Non- 90.0 BUN/Creatinine Ratio 21.9 Random Glucose 179 mg/dl Calcium Level 8.0 mg/dl Test 05/18/16 18:34 05/18/16 21:06 05/19/16 06:25 Troponin I < 0.015 ng/ml Bedside Glucose 279 mg/dl White Blood Count 9.99 K/uL Red Blood Count 3.13 M/uL Hemoglobin 11.0 g/dL Hematocrit 31.2 % Mean Corpuscular Volume 99.7 fL Mean Corpuscular Hemoglobin 35.1 pg Mean Corpuscular Hemoglobin Concent 35.3 g/dl RDW Standard Deviation 48.0 fL RDW Coefficient of Variation 13.2 % Platelet Count 169 K/uL Mean Platelet Volume 9.9 fL (Breana Cordova, PA-C) Assessment and Plan 60 y/o male, with PMHx of CAD s/p ID, angina, anxiety, T2DM, GERD, HIV+, DVT, HDL, macular degeneration, s/p decompression and laminectomy of L3-4 and L4-5 on 05/[address] Aden - Pain management, PT/OT, and DVT prophylaxis as per primary team - Follow CBC and PRP CAD s/p ID in 2013: - Continue Imdur 30 mg PO daily - Continue Metoprol 25 mg PO BID - Continue ASA 81 mg PO daily - Checked EKG and troponin due dyspnea Degenerative disease: - Hold Mobic 15 mg PO daily- check kidney function prior to restarting - Gabapentin 600 mg PO TID T2DM: - Hold Metformin 500 mg PO BID - BSG ACHS - Sliding insulin scale - Hyperglycemia, likely secondary to IV steroids/postop stress, start Lantus 10 units BID - Hold Lisinopril 2.5 mg PO daily- denies hx of HTN- check kidney function prior to restarting -- Added Hydralazine 10 mg IV q6 hrs PRN for sbp >170 or dbp >100 Hyperlipidemia: - Continue Atorvastatin 20 mg PO daily hx of DVT (right lower extremity): - Anticoagulation was d/c'd due to procedure. Spoke with Dr. Aden, may resume anticoagulation ~30 hours postop- he is OK with resuming tomorrow (05/19) evening. -- Start 1mg/kg Lovenox injections + 2.5 mg Warfarin PO on 05/19 @ 1600. [place] PT/INR/PTT - U/S of right lower extremity on 04/04/16- There is extensive nonocclusive deep venous thrombosis seen throughout the extremity, extending from the proximal superficial femoral vein into the calf. The common femoral vein is patent and normally compressible. The greater saphenous vein and the profunda femoris vein at the junction with the common femoral vein are clear. - Requiring 2L O2 currently. Check CTA with hx of extensive DVT, concerning for PE ?Anxiety/Depression: - Patient very emotional while interviewing on 05/19. Lives alone, macular degenerative disease, hearing loss, lots of concerns with health status GERD: - Protonix 40 mg PO daily HIV+ - Continue home regimen DVT prophylaxis: - Lovenox/Warfarin - MAURA and SCDs Dispo: - Discharge as per primary team - Patient lives in apartment alone Thank you for this consultation. We will continue to follow throughout hospital stay. (Breana Cordova ., PA-C) Attending Attestation: Pt seen/examined, chart reviewed, and care plan d/w RAJAT Cordova. I agree with the duenas components of her documentation except - will use heparin infusion in judi of lovenox for anticoagulation bridge. Pt still with SAINI but none at rest. Denies chest pain. +flatus. VSS, afebrile gen - nad mouth - cleft palate repair neck - no JVD heart - RRR, s1, s2 lungs - CTA b/l abd - soft, NT, ND, BS+ ext - no edema back - dressing in place labs - Cr normal Coags normal Hb 11 FSBS >200 A/P: 1. SAINI - chronic for 2 months (pre-op) but had post-op dyspnea yesterday. In light of RLE DVT I suspect chronic PEs; cannot rule out an acute PE. Agree with CTA chest PE protocol. 2. RLE DVT - extensive (dx 03/2016) - ok given by Dr. Aden to resume anticoagulation. Will use heparin drip in judi of lovenox; would be easier to stop and/or reverse heparin in the event he has bleeding in/near the operative site. Ok to resume coumadin as well per previous dosing. Await CTA chest. 3. T2DM - uncontrolled - increase lantus to 10 units BID; agree w/ adding carb coverage. 4. CAD - no evidence of ischemia. Continue all previous CAD meds. Kayleigh SAL MD (Robin Sal MD)
[2016-05-19] MEDS ORDERED: OPTIRAY 320 IV PRN (14:30)
--- NOTE | 2016-05-19 15:02 | DIAGNOSTIC IMAGING REPORT ---
CHEST CTA for PULMONARY ARTERIES CT DOSE: 427.97 mGy.cm HISTORY: Lower extremity DVT. Short of breath. TECHNIQUE: Multiaxial CT images of the chest were performed following the intravenous administration of contrast to evaluate the pulmonary arteries. Maximal intensity projection images were also obtained. COMPARISON STUDY: Chest 03/28/2016. FINDINGS: Normal caliber thoracic aorta with no evidence for dissection. The heart is normal in size. No pleural or pericardial effusions. There are few small linear filling defects seen within the lingular and left lower lobe segmental/subsegmental pulmonary arteries. There is also nonocclusive thrombus seen within the distal right main pulmonary artery extending into the right lower lobe pulmonary. These are consistent with pulmonary embolus. No evidence for right-sided heart strain. Left coronary artery calcifications. Severe fatty changes within the liver. The visualized spleen is unremarkable. No mediastinal or hilar lymphadenopathy. No pneumothorax. Bilateral lower lobe linear densities consistent with subsegmental atelectasis. IMPRESSION: 1. Bilateral pulmonary emboli as described above. No evidence for right-sided heart strain. 2. Hepatic steatosis. Electronically signed by: Isaac Alexander M.D. 05/19/2016 3:00 PM Dictated Date/Time: 05/19/2016 2:54 PM
[2016-05-19 15:22] VITALS: BP 122/74; PULSE 74; TEMP 36.6; O2SAT 97
[2016-05-19] MEDS ORDERED: ENOXAPARIN 1 MG/KG SQ SCH (16:00)
[2016-05-19] MEDS: HEPARIN 25,000 UNIT/500ML D5W 500 ML IV PRN (16:19)
[2016-05-19] MEDS: WARFARIN SOD 2.5 MG TAB PO SCH (16:24)
[2016-05-19 16:25] LABS: BASO % 0.1 %; BASO ABS # 0.01 K/uL (0-0.2); HEMATOCRIT 29.8 % (42-52); IG% 0.9 %; LYMPH % 5.6 %; LYMPH ABS # 0.84 K/uL (1.2-3.4); MEAN CELL VOLUME 98.7 fL (80-100); MEAN CORPUSCULAR HEMOGLOBIN 35.4 pg (25-34); MEAN PLATELET VOLUME 9.6 fL (7.4-10.4); MONO % 10.1 %; NEUT % 83.3 %; PLATELET COUNT 184 K/uL (130-400); RED BLOOD COUNT 3.02 M/uL (4.7-6.1); WHITE BLOOD COUNT 14.89 K/uL (4.8-10.8)
[2016-05-19 16:33] LABS: COMPLETE YES; MEAN CORPUSCULAR HGB CONC 35.9 g/dl (32-36); PROTHROMBIN TIME (PATIENT) 10.7 SECONDS (9.0-12.0)
[2016-05-19] MEDS: ATORVASTATIN 10 MG TAB PO SCH (21:19)
[2016-05-19] MEDS: INSULIN GLARGINE SOLOSTAR 100 UNITS/ML 3 ML PEN SC SCH (21:59)
[2016-05-19 22:53] LABS: PARTIAL THROMBOPLASTIN RATIO 1.5
[2016-05-19] MEDS ORDERED: HEPARIN IV BOLUS 6,000 UNIT in SYRINGE 0 ML IV ONE (23:30)
[2016-05-20] VITALS (7 sets, daily range): BP systolic 118–143; BP diastolic 63–83; PULSE 72–79; TEMP 36.3–36.7; O2SAT 94–96
[2016-05-20 06:06] LABS: HEMATOCRIT 27.9 % (42-52); MEAN CELL VOLUME 97.2 fL (80-100); MEAN CORPUSCULAR HEMOGLOBIN 35.2 pg (25-34); MEAN CORPUSCULAR HGB CONC 36.2 g/dl (32-36); MEAN PLATELET VOLUME 10.2 fL (7.4-10.4); PLATELET COUNT 155 K/uL (130-400); RED BLOOD COUNT 2.87 M/uL (4.7-6.1); WHITE BLOOD COUNT 12.49 K/uL (4.8-10.8)
[2016-05-20 06:25] LABS: INR 1.1 (0.9-1.1); PARTIAL THROMBOPLASTIN RATIO 4.5; PROTHROMBIN TIME (PATIENT) 11.6 SECONDS (9.0-12.0)
[2016-05-20 06:36] LABS: BUN/CREATININE RATIO 25.4 (10-20); CALCIUM 8.9 mg/dl (8.5-10.1); CREATININE 0.83 mg/dl (0.60-1.40); POTASSIUM 3.7 mmol/L (3.5-5.1)
[2016-05-20 06:46] LABS: BETA-HYDROXYBUTYRATE 2.9 mg/dL (0.2-2.81)
[2016-05-20] MEDS: HEPARIN 25,000 UNIT/500ML D5W 500 ML IV PRN ×6 (07:07→23:22)
[2016-05-20] MEDS: HYDROmorphone INJ 1 MG/ML SYR IV PRN (07:47)
[2016-05-20] MEDS: INSULIN ASPART 100 UNITS/ML 3 ML PEN SC SCH ×4 (09:42→21:33)
[2016-05-20] MEDS: INSULIN GLARGINE SOLOSTAR 100 UNITS/ML 3 ML PEN SC SCH ×2 (09:45→21:35)
[2016-05-20] MEDS: ASPIRIN 81 MG ECTAB PO SCH (09:46)
[2016-05-20] MEDS: OXYBUTYNIN CHLORIDE 5 MG TABCR PO SCH (09:46)
[2016-05-20] MEDS: [UNRECOGNIZED DRUG - OTHER] PO SCH (09:47)
[2016-05-20] MEDS: ISOSORBIDE MONONITRATE 30 MG TABCR PO SCH (09:47)
[2016-05-20] MEDS: GABAPENTIN 600 MG TAB PO SCH ×3 (09:50→21:51)
[2016-05-20] MEDS: POLYETHYLENE (MIRALAX) 17 GM PACK PO SCH (09:50)
[2016-05-20] MEDS: METOPROLOL TARTRATE 25 MG TAB PO SCH ×2 (09:50→21:51)
[2016-05-20] MEDS: DARUNAVIR ETHANOLATE 600 MG TAB PO SCH ×2 (09:51→21:50)
[2016-05-20] MEDS: RITONAVIR 100 MG TAB PO SCH ×2 (09:51→21:50)
[2016-05-20] MEDS: SENNA 8.6 MG TAB PO SCH (09:52)
--- NOTE | 2016-05-20 10:28 | PROGRESS NOTE ---
DATE: 05/20/2016 DATE: 05/20/2016. SUBJECTIVE: Minimal complaints of pain. Denies chest pain, shortness of breath, confusion at rest. OBJECTIVE: Vital signs stable, alert, oriented. Hemoglobin 10.4, hematocrit 27.9. CT scan demonstrates bilateral pulmonary emboli. ASSESSMENT: Delightful gentleman status post lumbar spine surgery with pulmonary emboli. DISPOSITION: Includes instructions, precautions, education to this pathology. He is on a heparin drip, which I support. We are going have his dressing changed today. Up and ambulatory. Hold his discharge. Tentatively would be going home today, probably looks like Sunday, possible rehab status as well.
[2016-05-20] MEDS: VENLAFAXINE HCL XR 150 MG CAPXR PO SCH (11:03)
[2016-05-20 13:05] LABS: PARTIAL THROMBOPLASTIN RATIO 2.2
[2016-05-20] MEDS ORDERED: NURSING VERBAL MED ORDER ONE (13:15)
[2016-05-20 14:16] LABS: PARTIAL THROMBOPLASTIN RATIO 2.2
[2016-05-20] MEDS: WARFARIN SOD 2.5 MG TAB PO SCH (16:09)
--- NOTE | 2016-05-20 20:04 | Progress Note ---
Subjective Date of Service: May 20, 2016. Subjective Pt evaluation today including: conversation w/ patient, physical exam, chart review, lab review, conversation w/ solutions consultant (Dr. Aden - orthopedics) Pain: back - but tolerable PO Intake: normal Voiding: no voiding problems ambulating decently and now states he prefers to d/c home rather than going to rehab still with mild dyspnea on exertion but no worse than previous no cough no chest pain no abd pain +flatus and stool Problem List Medical Problems: (1) Deep vein thrombosis Status: Acute Review of Systems Constitutional: No fever Cardiac: No orthopnea Abdomen: No pain Objective Vital Signs Date Time Temp Pulse Resp B/P Pulse Ox O2 Delivery O2 Flow Rate FiO2 05/20/16 16:45 Nasal Cannula 2.0 05/20/16 15:09 36.3 78 18 124/63 95 Nasal Cannula 2.0 05/20/16 11:53 95 05/20/16 07:45 96 Nasal Cannula 2.0 05/20/16 07:13 36.4 72 18 136/83 94 Nasal Cannula 2.0 05/20/16 00:17 36.7 78 16 126/70 95 Room Air 05/20/16 00:15 Nasal Cannula 2.0 Physical Exam General Appearance: no apparent distress ENT: + pertinent finding (cleft palate repair, MMM) Neck: no JVD Respiratory/Chest: lungs clear, no respiratory distress, no accessory muscle use Cardiovascular: regular rate, rhythm, no gallop, no murmur Abdomen: normal bowel sounds, non tender, soft, no organomegaly Extremities: no pedal edema Neurologic/Psychiatric: alert, oriented x 3 Skin: + pertinent finding (dressing intact on back ) Laboratory Results Last 24 Hours Test 05/19/16 20:39 05/19/16 22:30 05/20/16 05:05 05/20/16 08:00 Bedside Glucose 306 mg/dl 326 mg/dl Activated Partial Thromboplast Time 39.9 SECONDS 115.7 SECONDS Partial Thromboplastin Ratio 1.5 4.5 White Blood Count 12.49 K/uL Red Blood Count 2.87 M/uL Hemoglobin 10.1 g/dL Hematocrit 27.9 % Mean Corpuscular Volume 97.2 fL Mean Corpuscular Hemoglobin 35.2 pg Mean Corpuscular Hemoglobin Concent 36.2 g/dl RDW Standard Deviation 46.0 fL RDW Coefficient of Variation 13.1 % Platelet Count 155 K/uL Mean Platelet Volume 10.2 fL Prothrombin Time 11.6 SECONDS Prothromb Time International Ratio 1.1 Sodium Level 138 mmol/L Potassium Level 3.7 mmol/L Chloride Level 103 mmol/L Carbon Dioxide Level 23 mmol/L Anion Gap 12.0 mmol/L Blood Urea Nitrogen 21 mg/dl Creatinine 0.83 mg/dl Est Creatinine Clear Calc Drug Dose 104.3 ml/min Estimated GFR () 109.3 Estimated GFR (Non- 94.3 BUN/Creatinine Ratio 25.4 Random Glucose 307 mg/dl Calcium Level 8.9 mg/dl Beta-Hydroxybutyric Acid 2.90 mg/dL Test 05/20/16 12:23 05/20/16 12:40 05/20/16 13:38 05/20/16 16:57 Activated Partial Thromboplast Time 57.9 SECONDS 56.5 SECONDS Partial Thromboplastin Ratio 2.2 2.2 Bedside Glucose 300 mg/dl 290 mg/dl Assessment and Plan 60yo male with: 1. PEs - suspect that most of them are likely chronic / pre-existing (ie present before his surgery) as he had been having sob/jacques for 1-2 months before the surgery. Cannot fully r/o a perioperative PE but less likely. Spoke with Dr. Aden. It is ok to transition to lovenox 1mg/kg tomorrow from the heparin drip. H/H are stable and there are no signs of bleeding from operative site. Will make this transition tomorrow. Continue coumadin. Daily PTT, INR. 2. RLE DVT - extensive (dx 03/2016) - see above. This was technically an unprovoked event in March and he deserves a work-up after discharge. 3. T2DM - uncontrolled - increase lantus to 15 units BID; adjust correction factor & carb ratio. 4. CAD - no evidence of ischemia. Continue all previous CAD meds. 5. HIV positive status - continue chronic HIV medications. wean O2 as tolerated Continued [facility] stay due to: multiple IV medications needed
[2016-05-20] MEDS: ATORVASTATIN 10 MG TAB PO SCH (21:51)
[2016-05-21] MEDS: HEPARIN 25,000 UNIT/500ML D5W 500 ML IV PRN ×3 (02:32→07:42)
[2016-05-21 06:34] LABS: HEMATOCRIT 28.5 % (42-52); MEAN CELL VOLUME 98.3 fL (80-100); MEAN CORPUSCULAR HEMOGLOBIN 35.2 pg (25-34); MEAN CORPUSCULAR HGB CONC 35.8 g/dl (32-36); MEAN PLATELET VOLUME 9.7 fL (7.4-10.4); PLATELET COUNT 165 K/uL (130-400)
[2016-05-21 06:35] VITALS: BP 128/78; PULSE 77; TEMP 36.5; O2SAT 95
[2016-05-21 06:45] LABS: PARTIAL THROMBOPLASTIN RATIO 1.2; PROTHROMBIN TIME (PATIENT) 10.5 SECONDS (9.0-12.0)
[2016-05-21 07:01] LABS: BUN/CREATININE RATIO 24.6 (10-20); CALCIUM 8.5 mg/dl (8.5-10.1); CREATININE 0.82 mg/dl (0.60-1.40); POTASSIUM 3.9 mmol/L (3.5-5.1)
[2016-05-21] MEDS ORDERED: HEPARIN IV BOLUS 6,000 UNIT in SYRINGE 0 ML IV ONE (07:30)
[2016-05-21] MEDS: INSULIN GLARGINE SOLOSTAR 100 UNITS/ML 3 ML PEN SC SCH ×2 (07:41→21:55)
[2016-05-21] MEDS: INSULIN ASPART 100 UNITS/ML 3 ML PEN SC SCH ×4 (07:41→21:54)
[2016-05-21] MEDS: HYDROmorphone INJ 1 MG/ML SYR IV PRN ×3 (07:55→22:15)
[2016-05-21 08:44] VITALS: O2SAT 97
[2016-05-21] MEDS: DARUNAVIR ETHANOLATE 600 MG TAB PO SCH ×2 (09:00→21:19)
[2016-05-21] MEDS: GABAPENTIN 600 MG TAB PO SCH ×3 (09:03→21:21)
[2016-05-21] MEDS: ISOSORBIDE MONONITRATE 30 MG TABCR PO SCH (09:03)
[2016-05-21] MEDS: POLYETHYLENE (MIRALAX) 17 GM PACK PO SCH (09:03)
[2016-05-21] MEDS: VENLAFAXINE HCL XR 150 MG CAPXR PO SCH (09:03)
[2016-05-21] MEDS: METOPROLOL TARTRATE 25 MG TAB PO SCH ×2 (09:04→21:21)
[2016-05-21] MEDS: SENNA 8.6 MG TAB PO SCH (09:04)
[2016-05-21] MEDS: ASPIRIN 81 MG ECTAB PO SCH (10:32)
[2016-05-21] MEDS: OXYBUTYNIN CHLORIDE 5 MG TABCR PO SCH (10:32)
[2016-05-21] MEDS: [UNRECOGNIZED DRUG - OTHER] PO SCH (10:32)
[2016-05-21] MEDS: RITONAVIR 100 MG TAB PO SCH ×2 (10:32→21:19)
[2016-05-21] MEDS: ENOXAPARIN 80 MG/0.8 ML SYR SQ SCH ×2 (10:34→21:23)
[2016-05-21] MEDS ORDERED: ENOXAPARIN 1 MG/KG SQ SCH (11:00)
[2016-05-21] MEDS: METFORMIN HCL 500 MG TABCR PO SCH (13:14)
[2016-05-21 14:15] VITALS: O2SAT 96
[2016-05-21 15:48] VITALS: BP 118/69; PULSE 79; TEMP 36.5; O2SAT 95
[2016-05-21] MEDS: WARFARIN SOD 5 MG TAB PO SCH (16:20)
--- NOTE | 2016-05-21 19:34 | Progress Note ---
Subjective Date of Service: May 21, 2016. Subjective Pt evaluation today including: conversation w/ patient, physical exam, chart review, lab review, conversation w/ media sales consultant (ortho - Dr. LUNSFORD) Pain: back but controlled PO Intake: good Voiding: no voiding problems Feels good. Anxious to go home - PT cleared him for home rather than rehab. He reports he will have a neighbor, who is a retired RN, administer his lovenox injections. Denies chest pain, abd pain, dyspnea at rest (mild SAINI only - baseline). +bowel movement. Dr. Lunsford plans to d/c him home tomorrow. Problem List Medical Problems: (1) Deep vein thrombosis Status: Acute Review of Systems Constitutional: No fever Respiratory: No cough, No sputum Cardiac: No chest pain, No orthopnea Abdomen: No diarrhea, No pain Objective Vital Signs Date Time Temp Pulse Resp B/P Pulse Ox O2 Delivery O2 Flow Rate FiO2 05/21/16 15:48 36.5 79 18 118/69 95 Room Air 05/21/16 14:15 96 Room Air 05/21/16 09:00 Room Air 05/21/16 08:44 97 05/21/16 06:35 36.5 77 16 128/78 95 Room Air 05/21/16 00:40 Nasal Cannula 2.0 05/20/16 23:08 36.4 78 20 118/64 94 Nasal Cannula 2.0 05/20/16 21:52 79 143/74 Physical Exam General Appearance: no apparent distress ENT: pharynx normal, + pertinent finding (evidence of prior cleft lip/palate) Neck: + JVD Respiratory/Chest: lungs clear, no respiratory distress, no accessory muscle use Cardiovascular: regular rate, rhythm, no gallop, no murmur Abdomen: normal bowel sounds, non tender, soft, no organomegaly Extremities: no pedal edema Neurologic/Psychiatric: alert, oriented x 3 Skin: + pertinent finding (dressings in place on back) Laboratory Results Last 24 Hours Test 05/20/16 20:41 05/21/16 06:10 05/21/16 06:39 05/21/16 12:20 Bedside Glucose 310 mg/dl 307 mg/dl 230 mg/dl White Blood Count 11.00 K/uL Red Blood Count 2.90 M/uL Hemoglobin 10.2 g/dL Hematocrit 28.5 % Mean Corpuscular Volume 98.3 fL Mean Corpuscular Hemoglobin 35.2 pg Mean Corpuscular Hemoglobin Concent 35.8 g/dl RDW Standard Deviation 47.2 fL RDW Coefficient of Variation 13.1 % Platelet Count 165 K/uL Mean Platelet Volume 9.7 fL Prothrombin Time 10.5 SECONDS Prothromb Time International Ratio 1.0 Activated Partial Thromboplast Time 30.3 SECONDS Partial Thromboplastin Ratio 1.2 Sodium Level 141 mmol/L Potassium Level 3.9 mmol/L Chloride Level 105 mmol/L Carbon Dioxide Level 24 mmol/L Anion Gap 12.0 mmol/L Blood Urea Nitrogen 20 mg/dl Creatinine 0.82 mg/dl Est Creatinine Clear Calc Drug Dose 105.5 ml/min Estimated GFR () 109.8 Estimated GFR (Non- 94.8 BUN/Creatinine Ratio 24.6 Random Glucose 288 mg/dl Calcium Level 8.5 mg/dl Test 05/21/16 16:54 Bedside Glucose 291 mg/dl Assessment and Plan 60yo male with: 1. PEs - suspect that most of them are likely chronic / pre-existing (ie present before his surgery) as he had been having sob/saini for 1-2 months before the surgery. Cannot fully r/o a perioperative PE but less likely. H/H are stable and there are no signs of bleeding from operative site. d/c heparin drip, transition to 1mg/kg lovenox q12h. Continue coumadin - he was taking 5mg daily at home pre-operatively. Daily PTT, INR. 2. RLE DVT - extensive (dx 03/2016) - see above. This was technically an unprovoked event in March and he deserves a work-up after discharge. He mentions having nightsweats for about 2-3 months and he should have w/u for lymphoma / other cancer. 3. T2DM - uncontrolled - increase lantus to 20 units BID; leave carb ratio/ correction as is. Creatinine stable x 48 hours post-contrast. Resume metformin once daily as previous. 4. CAD - no evidence of ischemia. Continue all previous CAD meds. 5. HIV positive status - continue chronic HIV medications. Voiding fine. +stools. Ambulating better. Check O2 sats w/ walking to ensure no ambulatory O2 requirement. From medical standpoint can d/c home today or tomorrow. Will need to see PCP shortly after d/c for lovenox/coumadin management. Discharge planning: home
[2016-05-21] MEDS: ATORVASTATIN 10 MG TAB PO SCH (21:21)
[2016-05-21 21:22] VITALS: BP 122/73; PULSE 71
[2016-05-21 22:55] VITALS: BP 129/76; PULSE 76; TEMP 36.5; O2SAT 92
[2016-05-22 06:37] VITALS: BP 141/83; PULSE 59; TEMP 36.4; O2SAT 98
[2016-05-22 06:58] LABS: HEMATOCRIT 27.2 % (42-52); MEAN CELL VOLUME 98.6 fL (80-100); MEAN CORPUSCULAR HEMOGLOBIN 35.1 pg (25-34); MEAN CORPUSCULAR HGB CONC 35.7 g/dl (32-36); MEAN PLATELET VOLUME 9.7 fL (7.4-10.4); PLATELET COUNT 167 K/uL (130-400); RED BLOOD COUNT 2.76 M/uL (4.7-6.1); WHITE BLOOD COUNT 8.95 K/uL (4.8-10.8)
[2016-05-22 07:05] LABS: PARTIAL THROMBOPLASTIN RATIO 0.9; PROTHROMBIN TIME (PATIENT) 10.6 SECONDS (9.0-12.0)
[2016-05-22] MEDS: ASPIRIN 81 MG ECTAB PO SCH (08:28)
[2016-05-22] MEDS: OXYBUTYNIN CHLORIDE 5 MG TABCR PO SCH (08:28)
[2016-05-22] MEDS: DARUNAVIR ETHANOLATE 600 MG TAB PO SCH (08:29)
[2016-05-22] MEDS: [UNRECOGNIZED DRUG - OTHER] PO SCH (08:29)
[2016-05-22] MEDS: RITONAVIR 100 MG TAB PO SCH (08:29)
[2016-05-22] MEDS: VENLAFAXINE HCL XR 150 MG CAPXR PO SCH (08:30)
[2016-05-22] MEDS: METFORMIN HCL 500 MG TABCR PO SCH (08:30)
[2016-05-22] MEDS: GABAPENTIN 600 MG TAB PO SCH ×2 (08:31→14:30)
[2016-05-22] MEDS: ISOSORBIDE MONONITRATE 30 MG TABCR PO SCH (08:31)
[2016-05-22] MEDS: SENNA 8.6 MG TAB PO SCH (08:32)
[2016-05-22] MEDS: POLYETHYLENE (MIRALAX) 17 GM PACK PO SCH (08:32)
[2016-05-22 08:34] VITALS: BP 133/75; PULSE 70
[2016-05-22] MEDS: METOPROLOL TARTRATE 25 MG TAB PO SCH (08:35)
[2016-05-22] MEDS: ENOXAPARIN 80 MG/0.8 ML SYR SQ SCH (08:37)
[2016-05-22] MEDS: INSULIN ASPART 100 UNITS/ML 3 ML PEN SC SCH ×2 (08:46→13:01)
[2016-05-22] MEDS: INSULIN GLARGINE SOLOSTAR 100 UNITS/ML 3 ML PEN SC SCH (08:47)
--- NOTE | 2016-05-22 08:49 | Progress Note ---
Subjective Date of Service: May 22, 2016. 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 Problem List Medical Problems: (1) Deep vein thrombosis Status: Acute Review of Systems Constitutional: No chills, No fever, No weakness Respiratory: No cough, No dyspnea on exertion, No shortness of breath Cardiac: No chest pain, No edema Abdomen: No diarrhea, No nausea, No pain, No vomiting Psychiatric: No anhedonism, No depression symptoms Objective Vital Signs Date Time Temp Pulse Resp B/P Pulse Ox O2 Delivery O2 Flow Rate FiO2 05/22/16 08:34 70 133/75 05/22/16 06:37 36.4 59 14 141/83 98 Room Air 05/21/16 23:30 Room Air 05/21/16 22:55 36.5 76 14 129/76 92 Room Air 05/21/16 21:22 71 122/73 05/21/16 16:15 Room Air 05/21/16 15:48 36.5 79 18 118/69 95 Room Air 05/21/16 14:15 96 Room Air 05/21/16 09:00 Room Air Physical Exam General Appearance: WD/WN, + mild distress Neck: supple, no JVD Respiratory/Chest: chest non-tender, lungs clear, normal breath sounds Cardiovascular: regular rate, rhythm, no murmur Abdomen: normal bowel sounds, non tender, soft Extremities: no pedal edema, no calf tenderness Laboratory Results Last 24 Hours Test 05/21/16 12:20 05/21/16 16:54 05/21/16 19:52 05/21/16 21:33 Bedside Glucose 230 mg/dl 291 mg/dl 277 mg/dl 204 mg/dl Test 05/22/16 06:15 05/22/16 06:33 White Blood Count 8.95 K/uL Red Blood Count 2.76 M/uL Hemoglobin 9.7 g/dL Hematocrit 27.2 % Mean Corpuscular Volume 98.6 fL Mean Corpuscular Hemoglobin 35.1 pg Mean Corpuscular Hemoglobin Concent 35.7 g/dl RDW Standard Deviation 47.0 fL RDW Coefficient of Variation 13.0 % Platelet Count 167 K/uL Mean Platelet Volume 9.7 fL Nucleated RBC Absolute Count (auto) 0.03 K/uL Nucleated Red Blood Cells % 0.4 % Prothrombin Time 10.6 SECONDS Prothromb Time International Ratio 1.0 Activated Partial Thromboplast Time 24.4 SECONDS Partial Thromboplastin Ratio 0.9 Bedside Glucose 229 mg/dl Assessment and Plan 60yo male with PE'S after spine surgery, h/o DVT and recent shortness of breath preceding surgery PEs - suspect that most of them are likely chronic / pre-existing (ie present before his surgery) as he had been having sob/jacques for 1-2 months before the surgery. Cannot fully r/o a perioperative PE, Anticoagulation started with heparin drip 05/21, transition to 1mg/kg lovenox q12h. Continue coumadin - will need 5 day overlap of both, may need discharged on a few days of lovenox RLE DVT - extensive (dx 03/2016) - see above. This was technically an unprovoked event in March T2DM - uncontrolled - increase lantus to 20 units BID; leave carb ratio/ correction as is. Creatinine stable x 48 hours post-contrast. Resume metformin HIV positive status - continue chronic HIV medications. Discharge planning: home
--- NOTE | 2016-05-22 10:57 | Discharge Instructions ---
Discharge Instructions Admission Reason for Admission: Spinal Stenosis Discharge Discharge Diagnosis / Problem: stenosis Discharge Goals Goal(s): Improve function Activity Recommendations Activity Limitations: as noted below Lifting Limitations: no more than 5 pounds May Resume Sexual Activity: after follow-up appointment Shower/Bathe: keep incision dry Driving or Machine Use: home , rest, recover . Current Hospital Diet Patient's current hospital diet: Regular Diet, Diabetes Type 2 Diet Discharge Diet Recommended Diet: Regular Diet Fluid Restriction: None Procedures Procedures Performed: L3-L4, L4-L5 Laminectomy and L5-S1 Pending Studies Studies pending at discharge: no Laboratory Results Hemoglobin A1c Test 04/29/16 11:40 Range/Units Estimated Average Glucose 166 mg/dl Hemoglobin A1c 7.4 H 4.5-5.6 % Lipid Panel Test 02/29/16 11:46 Range/Units Triglycerides Level 344 H 0-150 mg/dl Cholesterol Level 185 0-200 mg/dl HDL Cholesterol 32 mg/dl Cholesterol/HDL Ratio 5.8 LDL Cholesterol, Calculated 84 mg/dl Medical Emergencies . Who to Call and When: Medical Emergencies: If at any time you feel your situation is an emergency, please call 911 immediately. . Non-Emergent Contact Non-Emergency issues call your: Surgeon Call Non-Emergent contact if: your pain is not controlled . "Provider Documentation" section prepared by Gianluca Aden. VTE Core Measure Inpt VTE Proph given/why not?: Treatment not indicated
[2016-05-22 13:35] VITALS: BP 133/75; PULSE 70; TEMP 36.4; O2SAT 98
[2016-05-22] MEDS ORDERED: ENOX80IN SQ (13:47)
[2016-05-22] MEDS: WARFARIN SOD 5 MG TAB PO SCH (14:31)
--- NOTE | 2016-05-31 14:12 | DISCHARGE SUMMARY ---
HISTORY AND HOSPITAL COURSE: Mr. Bach was admitted post-surgery, he did well, up and ambulating on his feet. He had some medical comorbidities including pulmonary emboli. We felt that that was old versus new. He ended up staying longer than needed and in some respects, we did have good excellent medical management. His wound was clean and dry. No sequelae. He was discharged home in improved stable condition on the 22 of June. Follow up in the office in 10 days. Instructions, precautions back brace for support, prescriptions prescribed.
[2016-12-12] MEDS ORDERED: LPT40 PO (14:14)
[2016-12-12] MEDS ORDERED: NTRSLP4 SL (14:14)
[2016-12-12] MEDS ORDERED: IMDSR30 PO (14:14)
[2016-12-12] MEDS ORDERED: PLV75 PO (14:14)
[2016-12-12] MEDS ORDERED: TPRSR50 PO (14:14)
== END 2016-05-22 15:29 | disposition home health service (06) ==
LOC: ENRESERVDT → ENRESERVTM → C.ACU 05:51 → MERGE 09:32 → C.MSN 09:56
PROVIDERS: ADMIT Orthopaedic Surgery Orthopaedic Surgery of the Spine; ATTEND Orthopaedic Surgery Orthopaedic Surgery of the Spine
DX: M48.06 Spinal stenosis, lumbar region (principal); M48.07 Spinal stenosis, lumbosacral region; D62 Acute posthemorrhagic anemia; I26.99 Other pulmonary embolism without acute cor pulmonale; I25.2 Old myocardial infarction; E11.9 Type 2 diabetes mellitus without complications; I25.10 Atherosclerotic heart disease of native coronary artery without angina pectoris; E78.5 Hyperlipidemia, unspecified; K21.9 Gastro-esophageal reflux disease without esophagitis; Z21 Asymptomatic human immunodeficiency virus [HIV] infection status; Z51.81 Encounter for therapeutic drug level monitoring; Z79.899 Other long term (current) drug therapy; Z87.891 Personal history of nicotine dependence; Z86.718 Personal history of other venous thrombosis and embolism; Z82.49 Family history of ischemic heart disease and other diseases of the circulatory system

== ENCOUNTER → 2016-07-13 | Outpatient (CLI) | payer OTHER ==
[~2016-07-13] MED LIST changes: +CYAN10004 SL; +HYDR-5688 PO; +IMDSR30 PO; +LPT40 PO; +NTRSLP4 SL; +PLV75 PO; +TPRSR50 PO; +VENL150T33 PO
[2016-07-13 13:34] LABS: BASO % 1.2 %; BASO ABS # 0.07 K/uL (0-0.2); COMPLETE YES; EOS % 16.4 %; HEMATOCRIT 36.6 % (42-52); LYMPH % 37.6 %; LYMPH ABS # 2.21 K/uL (1.2-3.4); MEAN CELL VOLUME 96.6 fL (80-100); MEAN CORPUSCULAR HEMOGLOBIN 33.2 pg (25-34); MEAN CORPUSCULAR HGB CONC 34.4 g/dl (32-36); MEAN PLATELET VOLUME 9.9 fL (7.4-10.4); MONO % 14.5 %; NEUT % 29.3 %; PLATELET COUNT 208 K/uL (130-400); RED BLOOD COUNT 3.79 M/uL (4.7-6.1); WHITE BLOOD COUNT 5.87 K/uL (4.8-10.8)
== END | disposition home or self-care (01) ==
LOC: C.LABBC 11:09
PROVIDERS: ATTEND Nurse Practitioner Family
DX: R19.7 Diarrhea, unspecified (principal); R19.5 Other fecal abnormalities; Z87.19 Personal history of other diseases of the digestive system; D64.9 Anemia, unspecified

== ENCOUNTER 2016-09-29 14:13 | Emergency (ER) | payer OTHER ==
[~2016-09-29] VITALS: Ht 185.4 cm; Wt 85.0 kg
[~2016-09-29 14:13] MED LIST changes: +ATOR10TA82 PO; -ATOR10TA88 PO; -CYAN10004 SL; -HYDR-5688 PO; -IMDSR30 PO; -LPT40 PO; -NTRSLP4 SL; -PLV75 PO; -TPRSR50 PO; -VENL150T33 PO
[2016-09-29 14:19] VITALS: TEMP 36.5; O2SAT 95; Ht 185.4 cm; Wt 85.0 kg
[2016-09-29] MEDS ORDERED: VENL150T33 PO (15:12)
--- NOTE | 2016-09-29 15:30 | DIAGNOSTIC IMAGING REPORT ---
LEFT SHOULDER MIN 2 VIEWS ROUTINE CLINICAL HISTORY: Left shoulder pain status post trauma COMPARISON: None DISCUSSION: No acute fractures or dislocations are visualized. There is a suspected old Hill-Sachs deformity. No periarticular calcifications are visualized. There are subchondral cystic changes present within the humeral head. IMPRESSION: 1. [place]-Sachs deformity 2. No acute fractures or subluxations identified. Electronically signed by: Lane Mcclure M.D. 09/29/2016 3:29 PM Dictated Date/Time: 09/29/2016 3:27 PM
[2016-09-29] MEDS ORDERED: HYDR-5688 PO (15:43)
--- NOTE | 2016-09-29 15:44 | EMERGENCY ROOM VISIT NOTE ---
ED Visit Note First contact with patient: 14:26 CHIEF COMPLAINT: Left shoulder injury 2 days ago HISTORY OF PRESENT ILLNESS: Patient is a [id number] 61-year-old white male who presents emergency department for evaluation of left shoulder pain 2 days. He sustained a mechanical fall 2 days ago when he tripped on a curb, landing directly on the left shoulder. He notes pain primarily anteriorly that is worse with any attempts at movement. He describes the pain as sharp, and states that radiates to the axillary region. He denies any other injuries related to the fall. He did not strike his head or lose consciousness. He denies any neck pain. No numbness, tingling or weakness into the left upper extremity. He has been applying heat and ice, and using hydrocodone for pain. He reports a remote history of a rotator cuff repair roughly 10 [place]. REVIEW OF SYSTEMS: Review of systems as per HPI. All other systems reviewed were negative. At least 6 systems reviewed. PMH: Electronic medical records are reviewed and summarized as above/below. See Problem List. SOCIAL HISTORY: Patient lives at home. Non-smoker, no excessive alcohol use. PHYSICAL EXAM: Vital Signs: Reviewed nurse's notes. CONSTITUTIONAL: Patient is a pleasant, well-appearing 61-year-old white male who is awake and alert and in mild distress due to his left shoulder discomfort. MUSCULOSKELETAL: Examination of the left shoulder show well-healed surgical scars. No ecchymosis , soft tissue swelling, abrasions or outward signs of trauma. There is no tenderness over the body of the clavicle, does have some discomfort over the acromioclavicular joint, and laterally over the rotator cuff insertion. No pain over the proximal biceps tendon. Possibly he can be internally and externally rotated fully. He has pain with forward flexion or abduction greater than 90. The left upper extremity is neurovascularly intact. HEART: Regular rate and rhythm. LUNGS: Clear to auscultation. EMERGENCY DEPARTMENT COURSE: The patient was seen and assessed as above. He had driven himself to the emergency department and needed to be able to drive home, therefore was not medicated for pain while in the emergency department. X-rays of the left shoulder were obtained. There was no evidence for acute fracture or bony abnormality. Differential diagnoses entertained included fracture, dislocation , subluxation, acromioclavicular separation, contusion, rotator cuff injury, among others. The patient was fitted with an arm sling. He was given a prescription for [place] for pain. Patient was reviewed in the [facility] Prescription Drug Monitoring Program, and there were no red flags noted. He is established with [facility] and was encouraged to follow-up with them for further care and management of his injury. LEFT SHOULDER MIN 2 VIEWS ROUTINE CLINICAL HISTORY: Left shoulder pain status post trauma COMPARISON: None DISCUSSION: No acute fractures or dislocations are visualized. There is a suspected old Hill-Sachs deformity. No periarticular calcifications are visualized. There are subchondral cystic changes present within the humeral head. IMPRESSION: 1. [place]-Sachs deformity 2. No acute fractures or subluxations identified. Problem List Medical Problems: (1) Anxiety Disorder, Unspecified Status: Chronic (2) Cervicalgia Status: Chronic (3) Deep vein thrombosis Status: Resolved (4) Gastro-Esophageal Reflux Disease Without Esophagitis Status: Chronic (5) Human Immunodeficiency Virus [Hiv] Disease Status: Chronic (6) Hyperlipidemia, Unspecified Status: Chronic (7) Hypertension Status: Chronic (8) Lumbar stenosis Status: Chronic (9) Old Myocardial Infarction Status: Chronic (10) Polyneuropathy, Unspecified Status: Chronic (11) Type 2 Diabetes Mellitus Without Complications Status: Chronic Current/Historical Medications Scheduled Abacavir Sulfate-Lamivudine (Epzicom), 1 TAB PO QAM Aspirin (Aspirin Ec), 81 MG PO QAM Atorvastatin (Lipitor), 10 MG PO HS Darunavir Ethanolate (Prezista), 600 MG PO BID Gabapentin (Neurontin), 600 MG PO TID Isosorbide Mononitrate Ext Rel (Imdur Ext Rel), 30 MG PO BID Lisinopril (Zestril), 2.5 MG PO QAM Metformin Hcl (Glucophage), 500 MG PO BID Metoprolol Tartrate (Lopressor) (Lopressor), 25 MG PO BID Omeprazole (Prilosec), 20 MG PO QAM Oxybutynin Chloride (Oxybutynin Chloride ER), 5 MG PO QAM Ritonavir (Norvir), 100 MG PO BID Venlafaxine Hcl (Venlafaxine Hcl Er), 1 TAB PO QAM Warfarin Sod (Coumadin), 5 MG PO DAILY Scheduled PRN Hydrocodone/Acetaminophen 5MG/325MG ([place] 5MG/325MG), 1-2 TABLETS PO Q4 PRN for Pain Allergies Coded Allergies: Penicillins (Unverified Allergy, Mild, RASH, 09/29/16) Vital Signs Date Time Temp Pulse Resp B/P (MAP) Pulse Ox O2 Delivery O2 Flow Rate FiO2 09/29/16 15:45 88 16 124/79 09/29/16 14:19 36.5 96 18 120/77 95 Room Air Departure Information Impression Primary Impression: Injury of left shoulder Prescriptions Hydrocodone/Acetaminophen 5MG/325MG ([place] 5MG/325MG) Tab 1-2 TABLETS PO Q4 Y for Pain, #30 TAB For Initial Treatment Prov: Lauren Calderon PA 09/29/16 Referrals RV. Pablo MD (PCP) Patient Instructions [facility] Additional Instructions Hydrocodone/Acetaminophen ([place]) 5/325 mg: Take 1-2 pills every four hours for breakthrough pain. Avoid alcohol, operating machinery or dangerous equipment, working on ladders or roofs, DRIVING, or situations where being under the influence may be dangerous. It is recommended to use an kdqa-[id number] stool softener such as Colace, 100mg twice daily while taking this medication to avoid constipation. Ice compresses for 20 minutes at a time four times daily for 2-3 days. Use the sling as instructed. Remove your arm from the sling 4-6 times a day and move all the joints around to keep them loose. Rest and elevate your injury. Continue current medications. Return to the ER immediately for any numbness, tingling, severe pain, extreme swelling in the extremity or as needed. Call [facility] this afternoon or on Sunday to arrange follow up for your injury.
[2016-09-29 15:45] VITALS: BP 124/79; PULSE 88
[2016-12-12] MEDS ORDERED: PLV75 PO (14:14)
[2016-12-12] MEDS ORDERED: TPRSR50 PO (14:14)
[2016-12-12] MEDS ORDERED: NTRSLP4 SL (14:14)
[2016-12-12] MEDS ORDERED: LPT40 PO (14:14)
[2016-12-12] MEDS ORDERED: IMDSR30 PO (14:14)
[2017-02-06] MEDS ORDERED: METO-217 PO (14:28)
== END 2016-09-29 15:51 | disposition home or self-care (01) ==
LOC: C.EDB 14:15 → C.EDD 15:51
DX: S49.92XA Unspecified injury of left shoulder and upper arm, initial encounter (principal); W10.1XXA Fall (on)(from) sidewalk curb, initial encounter; F41.9 Anxiety disorder, unspecified; M54.2 Cervicalgia; K21.9 Gastro-esophageal reflux disease without esophagitis; B20 Human immunodeficiency virus [HIV] disease; E78.5 Hyperlipidemia, unspecified; I10 Essential (primary) hypertension; I25.2 Old myocardial infarction; G62.9 Polyneuropathy, unspecified; E11.9 Type 2 diabetes mellitus without complications; Z79.82 Long term (current) use of aspirin

== ENCOUNTER → 2016-10-13 | Outpatient (CLI) | payer OTHER ==
[~2016-10-13] MED LIST changes: +CYAN10004 SL; -ENOX80IN SQ; +HYDR-5688 PO; +IMDSR30 PO; +LPT40 PO; -MELO15TA4 PO; +METO-217 PO; +NTRSLP4 SL; +PLV75 PO; +TPRSR50 PO; +VENL150T33 PO
[2016-10-13 11:05] LABS: ALT/SGPT 55 U/L (12-78); BLOOD UREA NITROGEN 16 mg/dl (7-18); CARBON DIOXIDE 23 mmol/L (21-32); CHLORIDE 108 mmol/L (98-107); CHOLESTEROL 169 mg/dl (0-200); CREATININE 0.92 mg/dl (0.60-1.40); GLUCOSE 134 mg/dl (70-99); POTASSIUM 4.2 mmol/L (3.5-5.1); SODIUM 141 mmol/L (136-145); TRIGLYCERIDES 732 mg/dl (0-150)
[2016-10-13 11:15] LABS: ALB/GLOB RATIO 0.8 (0.9-2); ALKALINE PHOSPHATASE 76 U/L (45-117); AST/SGOT 34 U/L (15-37); HDL CHOLESTEROL 21 mg/dl
[2016-10-13 11:27] LABS: ESTIMATED AVERAGE GLUCOSE 157 mg/dl; HA1C FLAG Normal (Normal)
[2016-10-13 11:33] LABS: URINE APPEARANCE TURBID (CLEAR); URINE BILIRUBIN NEG (NEG); URINE COLOR YELLOW; URINE NITRITE NEG (NEG); URINE SPECIFIC GRAVITY 1.023 (1.000-1.030); UROBILINOGEN NEG (NEG); ZZUR CULT IF INDIC CLEAN CATCH NO
[2016-10-13 11:35] LABS: MANUAL MICROSCOPIC REQUIRED? NO; REVIEW REQ? NO
[2016-10-13 11:38] LABS: RATIO 10.2 mcg/mg (0-30.0)
[2016-10-13 12:18] LABS: CALCIUM 8.7 mg/dl (8.5-10.1)
[2016-10-17 14:51] LABS: LSP % CELLS ANALYZED CD4 28 % (30-61); LSP ABSOLUTE CT CD4 674 cells/uL (490-1740); LSP LYMPHOCYTES ABSOLUTE 2429 cells/uL (850-3900)
== END | disposition home or self-care (01) ==
LOC: C.LABBC 07:59
PROVIDERS: ATTEND Internal Medicine
DX: E11.9 Type 2 diabetes mellitus without complications (principal); B20 Human immunodeficiency virus [HIV] disease; R26.89 Other abnormalities of gait and mobility

== ENCOUNTER → 2016-10-20 | Outpatient (CLI) | payer OTHER ==
--- NOTE | 2016-10-20 13:16 | DIAGNOSTIC IMAGING REPORT ---
ULTRASOUND BILATERAL LOWER EXTREMITY VENOUS CLINICAL HISTORY: Follow-up deep venous thrombosis. COMPARISON STUDY: Right lower extremity venous ultrasound dated 04/04/2016. TECHNIQUE: Real-time, grayscale, and color Doppler sonography of the deep veins of the right and left lower extremity was performed from the inguinal crease to the calf. Compression and augmentation were utilized. FINDINGS: There is no sonographic evidence of deep venous thrombosis identified in the right or left lower extremity. The common femoral, superficial femoral, and popliteal veins are patent and normally compressible bilaterally. The greater saphenous vein and the profunda femoris vein at the junction with the common femoral vein are clear in both legs. Echogenic stranding is seen within the right lesser saphenous vein, likely representing trace chronic superficial venous thrombus. The visualized calf veins are patent bilaterally. IMPRESSION: 1. There is no sonographic evidence of deep venous thrombosis identified in the right or left lower extremity. 2. Trace chronic appearing superficial venous thrombus is noted in the right lesser saphenous vein. Electronically signed by: Rico Feldman M.D. 10/20/2016 1:15 PM Dictated Date/Time: 10/20/2016 1:13 PM
== END | disposition home or self-care (01) ==
LOC: C.ULTRBC 12:41
PROVIDERS: ATTEND Internal Medicine Hematology & Oncology
DX: I82.401 Acute embolism and thrombosis of unspecified deep veins of right lower extremity (principal)

== ENCOUNTER → 2016-10-30 | Outpatient (CLI) | payer OTHER ==
[~2016-10-30] MED LIST changes: -ATOR10TA82 PO; +ATOR10TA88 PO
== END | disposition home or self-care (01) ==
LOC: C.PAPS 15:53
PROVIDERS: ATTEND Internal Medicine
DX: R89.6 Abnormal cytological findings in specimens from other organs, systems and tissues (principal)

== ENCOUNTER 2016-12-08 07:39 | Inpatient (IN) | payer OTHER ==
[2016-12-08] VITALS (11 sets, daily range): BP systolic 100–137; BP diastolic 57–78; PULSE 83–100; TEMP 36.6–36.8; O2SAT 94–100; Ht 185.4 cm; Wt 79.7 kg
[~2016-12-08] VITALS: Ht 185.4 cm; Wt 79.7 kg
[~2016-12-08 07:39] MED LIST changes: -CYAN10004 SL; -IMDSR30 PO; -LPT40 PO; -METO-217 PO; -NTRSLP4 SL; -PLV75 PO; -TPRSR50 PO
[2016-12-08] MEDS ORDERED: SODIUM CHLORIDE 0.9% 1000ML 1,000 ML IV STA ×2 (07:54)
[2016-12-08] MEDS ORDERED: CYAN10004 SL (08:17)
[2016-12-08] MEDS ORDERED: ONDANSETRON INJ 2 MG/ML 2 ML VIAL IV STA (08:26)
[2016-12-08] MEDS ORDERED: NITROGLYCERIN 0.4 MG SL PER TAB CHARGE SL PRN ×2 (08:30→12:45)
[2016-12-08 08:32] LABS: BASO % 0.2 %; BASO ABS # 0.03 K/uL (0-0.2); COMPLETE YES; EOS % 4.4 %; HEMATOCRIT 40.3 % (42-52); IG% 0.3 %; LYMPH % 12.5 %; LYMPH ABS # 1.57 K/uL (1.2-3.4); MEAN CELL VOLUME 97.3 fL (80-100); MEAN PLATELET VOLUME 10.3 fL (7.4-10.4); MONO % 10.6 %; PLATELET COUNT 199 K/uL (130-400); RED BLOOD COUNT 4.14 M/uL (4.7-6.1); WHITE BLOOD COUNT 12.51 K/uL (4.8-10.8)
[2016-12-08 08:35] LABS: POINT OF CARE TROPONIN I 2.74 ng/ml (0-0.045)
--- NOTE | 2016-12-08 08:37 | DIAGNOSTIC IMAGING REPORT ---
CHEST ONE VIEW PORTABLE HISTORY: 61 years-old Male acute chest pain with nausea, vomiting and diarrhea COMPARISON: Chest radiograph 03/28/2016 TECHNIQUE: Portable upright AP view of the chest FINDINGS: The cardiomediastinal and hilar silhouettes are within normal limits. There is atherosclerosis of the aorta. There is no pneumothorax, pleural effusion or focal airspace consolidation. Endplate spurring is seen throughout the spine. IMPRESSION: No acute cardiopulmonary process. The above report was generated using voice recognition software. It may contain grammatical, syntax or spelling errors. Electronically signed by: Jose Stephens M.D. 12/08/2016 8:35 AM Dictated Date/Time: 12/08/2016 8:34 AM
[2016-12-08 08:44] LABS: BUN/CREATININE RATIO 12.5 (10-20); CALCIUM 9.8 mg/dl (8.5-10.1); CREATININE 1.1 mg/dl (0.60-1.40); INR 0.9 (0.9-1.1); POTASSIUM 4.6 mmol/L (3.5-5.1)
[2016-12-08 08:48] LABS: ALB/GLOB RATIO 0.9 (0.9-2); CKMB/CK RATIO 2.8 (0-3.0)
[2016-12-08] MEDS ORDERED: ASPIRIN 324 MG CHEW PO STA (09:13)
[2016-12-08] MEDS ORDERED: FENTANYL CITRATE INJ 50 MCG/1 ML 2 ML VIAL IV STA (09:13)
--- NOTE | 2016-12-08 09:14 | EMERGENCY ROOM VISIT NOTE ---
History First contact with patient: 07:47 Chief Complaint: CHEST PAIN Stated Complaint: CHEST PAINS, NAUSEA POSS. FOOD POISONING Nursing Triage Summary: CP x 11 days. Vomiting and diarrhea x 12 hours. Pain radiates into back, neck , and arms. History of Present Illness Patient is a 61-year-old white male with past medical history significant for coronary artery disease with history of AK, hypertension, dyslipidemia, diabetes , GERD, HIV, history of DVT, who presents emergency department for evaluation of chest pain 11 days. He reports a constant midsternal chest pressure that wraps around both sides to his mid back. At its worst, he would rate it an 8/ 10. He states that it is worse with exertion. He reports that he difficulty sleeping last night 2 to his symptoms. He initially thought it was indigestion , and tried taking times, with minimal relief. He states the pain radiates slightly toward his left neck. It makes him feel a little short of breath. He had similar symptoms about 7 years ago, and was told that he had a "mild AK." This was treated medically. The pain is not worse with coughing or deep breathing. He does has a history of DVT, was recently taken off of his warfarin after repeat ultrasound showed that the DVT had resolved. He denies history of PE. For the past several months, he has had chest pain with exertion that has been alleviated by rest. He has not been evaluated by this. The last 12 hours, he developed some stomach upset, nausea, vomiting 1 and diarrhea 2. He thinks it could be related to food that he ate at a meeting yesterday. He is supposed to be going out of town, and wanted to be evaluated for the chest pain. Review of Systems Review of systems as per HPI. All other systems reviewed were negative. 10 systems reviewed. Past Medical/Surgical History Medical Problems: (1) ACS (acute coronary syndrome) (2) Anxiety Disorder, Unspecified (3) CAD (coronary artery disease), [place] coronary artery (4) Cervicalgia (5) Deep vein thrombosis (6) Gastro-Esophageal Reflux Disease Without Esophagitis (7) Human Immunodeficiency Virus [Hiv] Disease (8) Hyperlipidemia, Unspecified (9) Hypertension (10) Injury of left shoulder (11) Injury of left shoulder (12) Lumbar stenosis (13) Old Myocardial Infarction (14) Polyneuropathy, Unspecified (15) Type 2 Diabetes Mellitus Without Complications Surgical Problems: (1) S/P right coronary artery (RCA) stent placement Electronic medical records are reviewed and summarized as above/below. See Problem List. Social History Smoking Status: Former Smoker Housing Status: lives alone Occupation Status: retired Current/Historical Medications Scheduled Abacavir Sulfate-Lamivudine (Epzicom), 1 TAB PO QAM Aspirin (Aspirin Ec), 81 MG PO HS Atorvastatin (Lipitor), 10 MG PO HS Cyanocobalamin (Vitamin B-12 1000 Mcg), 1,000 MCG SL QAM Darunavir Ethanolate (Prezista), 600 MG PO BID Gabapentin (Neurontin), 600 MG PO TID Isosorbide Mononitrate Ext Rel (Imdur Ext Rel), 30 MG PO BID Lisinopril (Zestril), 2.5 MG PO QAM Metformin Hcl (Glucophage), 500 MG PO BID Metoprolol Tartrate (Lopressor) (Lopressor), 25 MG PO BID Omeprazole (Prilosec), 20 MG PO QAM Oxybutynin Chloride (Oxybutynin Chloride ER), 5 MG PO QAM Ritonavir (Norvir), 100 MG PO BID Venlafaxine Hcl (Venlafaxine Hcl Er), 1 TAB PO QAM Physical Exam Vital Signs Date Time Temp Pulse Resp B/P (MAP) Pulse Ox O2 Delivery O2 Flow Rate FiO2 12/08/16 12:40 88 18 121/78 (92) 93 Room Air 12/08/16 12:35 91 18 127/80 (96) 93 Room Air 12/08/16 12:30 90 18 130/86 (101) 93 Room Air 12/08/16 12:25 91 18 136/84 (101) 99 Mask 4 12/08/16 09:45 98 Room Air 12/08/16 09:44 108 22 119/83 98 Room Air 12/08/16 09:22 102 20 124/75 99 Room Air 12/08/16 09:03 100 18 124/75 99 Room Air 12/08/16 08:46 121 18 96/68 96 Room Air 12/08/16 08:38 119 20 120/82 97 Room Air 12/08/16 08:06 112 20 126/87 96 Room Air 12/08/16 07:57 95 Room Air 12/08/16 07:56 111 12/08/16 07:43 36.6 113 16 118/71 97 Room Air Physical Exam CONSTITUTIONAL: Patient is a pleasant, well-appearing 61-year-old white male who is awake and alert and in no acute distress. EYES: Pupils equal, round, reactive to light and accommodation. EOMs intact without nystagmus. Sclera are anicteric. ENT: Tympanic membranes intact, with normal landmarks. External canals are clear. Oral and nasopharynx are clear. Mucous membranes are moist, no lesions , tongue and gums appear normal. NECK: No bruits auscultated. Supple without lymphadenopathy. No thyromegaly. No meningeal signs. Full active range of motion without discomfort. CARDIOVASCULAR: Tachycardic rate and rhythm, with normal S1 and S2, no murmur or gallop or rub is heard. No carotid bruits auscultated. No JVD. Peripheral pulses easy to palpable. RESPIRATORY: Breath sounds equal and clear to auscultation without wheezes, rales, or rhonchi heard. Full and equal chest expansion without accessory muscle use or retractions. GI: Bowel sounds are present. Abdomen is soft, nontender, nondistended. No organomegaly. No pulsatile masses. No guarding or rebound. MUSCULOSKELETAL: Full range of motion of extremities x 4 with good strength. No cyanosis, edema, joint tenderness or swelling. No deformity. INTEGUMENTARY: No lesions or rash, normal skin turgor. NEUROLOGICAL: Alert, oriented, and cooperative. Cranial nerves, sensation and strength grossly intact. Pupils round, equal, and react to light, EOMs are full. LYMPH: No lymphadenopathy. Medical Decision & Procedures ER Provider Diagnostic Interpretation: CHEST ONE VIEW PORTABLE HISTORY: 61 years-old Male acute chest pain with nausea, vomiting and diarrhea COMPARISON: Chest radiograph 03/28/2016 TECHNIQUE: Portable upright AP view of the chest FINDINGS: The cardiomediastinal and hilar silhouettes are within normal limits. There is atherosclerosis of the aorta. There is no pneumothorax, pleural effusion or focal airspace consolidation. Endplate spurring is seen throughout the spine. IMPRESSION: No acute cardiopulmonary process. Laboratory Results Test 12/08/16 07:56 12/08/16 08:16 12/08/16 12:17 Prothrombin Time 10.0 SECONDS (9.0-12.0) Prothromb Time International Ratio 0.9 (0.9-1.1) Activated Partial Thromboplast Time 25.1 SECONDS (21.0-31.0) Partial Thromboplastin Ratio 1.0 Total Bilirubin 0.5 mg/dl (0.2-1) Aspartate Amino Transf (AST/SGOT) 52 U/L (15-37) Alanine Aminotransferase (ALT/SGPT) 56 U/L (12-78) Alkaline Phosphatase 76 U/L (45-117) Total Protein 8.2 gm/dl (6.4-8.2) Albumin 3.9 gm/dl (3.4-5.0) Globulin 4.3 gm/dl (2.5-4.0) Albumin/Globulin Ratio 0.9 (0.9-2) Lipase 376 U/L (73-393) Bedside D-Dimer 357 ng/mlFEU (0-450) Bedside Troponin I 2.740 ng/ml (0-0.045) Kaolin Activated Coagulation Time 169 SECONDS (94-140) Medications Administered Medications (Trade) Dose Ordered Sig/Margot Route Start Time Stop Time Status Last Admin Dose Admin Sodium Chloride 1,000 ml @ 250 mls/hr Q4H STAT IV 12/08/16 07:54 12/08/16 11:53 DC 12/08/16 09:04 250 MLS/HR Sodium Chloride 1,000 ml @ 999 mls/hr Q1H1M STAT IV 12/08/16 07:54 12/08/16 08:54 DC 12/08/16 08:20 999 MLS/HR Ondansetron HCl (Zofran Inj) 4 mg NOW STAT IV 12/08/16 08:26 12/08/16 08:29 DC 12/08/16 08:37 4 MG Nitroglycerin (Nitrostat Tab) 0.4 mg PRN PRN SL 12/08/16 08:30 12/08/16 15:06 DC 12/08/16 08:37 0.4 MG Aspirin (Aspirin Chew) 324 mg NOW STAT PO 12/08/16 09:13 12/08/16 09:14 DC 12/08/16 09:20 324 MG Fentanyl Citrate (Fentanyl Inj) 50 mcg NOW STAT IV 12/08/16 09:13 12/08/16 09:14 DC 12/08/16 09:21 50 MCG Heparin Sodium (Porcine) (Heparin Iv Bolus) 10,000 unit STK-MED ONCE .ROUTE 12/08/16 09:32 12/08/16 09:34 DC 12/08/16 09:32 8,000 UNIT Midazolam HCl (Versed Inj) 2 mg STK-MED ONCE .ROUTE 12/08/16 09:33 12/08/16 09:34 DC 12/08/16 09:33 2 MG Nitroglycerin/ Dextrose (Nitroglycerin/ D5w 100 Mcg/Ml) 25 mg STK-MED ONCE .ROUTE 12/08/16 10:28 12/08/16 10:29 DC 12/08/16 10:28 25 MG Morphine Sulfate (MoRPHine SULFATE INJ) 2 mg STK-MED ONCE .ROUTE 12/08/16 10:37 12/08/16 10:38 DC 12/08/16 10:37 2 MG Eptifibatide (Integrilin Inj) 40 mg STK-MED ONCE IV 12/08/16 11:10 12/08/16 11:11 DC 12/08/16 11:10 29.2 MG Eptifibatide (Integrilin Inj) 75 mg STK-MED ONCE IV 12/08/16 11:10 12/08/16 11:11 DC 12/08/16 11:10 75 MG Fentanyl Citrate (Fentanyl Inj) 100 mcg STK-MED ONCE .ROUTE 12/08/16 11:20 12/08/16 11:21 DC 12/08/16 11:20 100 MCG Midazolam HCl (Versed Inj) 2 mg STK-MED ONCE .ROUTE 12/08/16 11:52 12/08/16 11:53 DC 12/08/16 11:52 1 MG Fentanyl Citrate (Fentanyl Inj) 100 mcg STK-MED ONCE .ROUTE 12/08/16 11:52 12/08/16 11:53 DC 12/08/16 11:52 50 MCG Metoprolol Tartrate (Lopressor Iv) 5 mg STK-MED ONCE .ROUTE 12/08/16 12:20 12/08/16 12:21 DC 12/08/16 12:20 5 MG Clopidogrel Bisulfate (plAVix TAB) 600 mg STK-MED ONCE PO 12/08/16 12:22 12/08/16 12:23 DC 12/08/16 12:22 600 MG Sodium Chloride 1,000 ml @ 125 mls/hr Q8H IV 12/08/16 12:45 01/07/17 12:44 12/08/16 14:20 125 MLS/HR ECG Indication: chest pain Rate (beats per minute): 104 Rhythm: normal sinus Findings: no acute ischemic change, no ectopy, other (OLD INFERIOR INFARCT) Change: no significant change ED Course The patient was seen and assessed as above. His old records were reviewed. IV lock was initiated and he was hydrated with normal saline solution. He was placed on a environmental monitoring technician, and EKG was performed. He was medicated with Zofran 4 mg IV for nausea. He was given nitroglycerin 0.4 mg sublingual 1, which brought his pain from an 8 to a 6, but blood pressure dropped to 96/68, therefore further nitroglycerin was held. Aspirin was not initially administered due to the patient's nausea and vomiting, was given later after Zofran had helped with nausea. CMP, lipase, CK, CK-MB and [id number] d- dimer and troponin were drawn. Chest x-ray was obtained and was unremarkable. He was given Fentanyl 50 g IV for pain which he stated a 5/10. Patient's laboratory studies noted a white count of 12,500, H&H 14.5, 40.3, platelet count 199,000. INR is 0.9. Electrolytes were without significant abnormality. Liver functions were not elevated. His troponin was negative elevated at 2.74, he has slight elevation of his total CK at 453, CK-MB 12.5. A [id number] d-dimer was normal at 357. All laboratory and diagnostic imaging studies were reviewed with attending physician. Given the elevated troponin, and persistent, evolving chest pain, I did discuss the patient with Dr. Silverio. He came to the emergency department and evaluated the patient, and took him to the clinical lab clerk for diagnostic cath. Please refer to his cardiology consultation for further information. Differential diagnosis includes acute myocardial infarction, acute coronary syndrome, myocarditis, pericarditis, pericardial effusions /tamponade, esophageal perforation, pulmonary embolism, pneumonia, pneumothorax, cardiomyopathy, congestive heart failure, anemia , COPD/asthma exacerbation, musculoskeletal, anxiety, costochondritis,. Medical Decision See ED Course. Medication Reconcilliation Current Medication List: was personally reviewed by me Blood Pressure Screening Patient's blood pressure: Normal blood pressure Blood pressure disposition: Did not require urgent referral Impression Primary Impression: Substernal precordial chest pain Additional Impression: Elevated troponin Departure Information Dispostion Other (To clinical lab clerk per cardiology, then admitted.) Referrals RV. Pablo MD (PCP) Patient Instructions My [facility] Problem Qualifiers
[2016-12-08] MEDS ORDERED: NiCARDipine HCL INJ 2.5 MG/ML 10 ML AMP ONE (09:32)
[2016-12-08] MEDS ORDERED: HEPARIN SOD (PORCINE) 1000 UNIT/ML 10 ML VIAL ONE (09:32)
[2016-12-08] MEDS ORDERED: MIDAZOLAM HCL 1 MG/ML 2ML VIAL ONE ×2 (09:33→11:52)
[2016-12-08] MEDS ORDERED: NITROGLYCERIN/D5W 100MCG/ML 20ML SYR ONE (09:33)
[2016-12-08] MEDS ORDERED: SODIUM CHLORIDE 0.9% 1000ML 1,000 ML IV SCH (09:39)
[2016-12-08] MEDS ORDERED: DC ALL ANTICOAGULANTS SCH (09:45)
--- NOTE | 2016-12-08 10:12 | CARDIOLOGY CONSULTATION ---
DATE OF CONSULTATION: 12/08/2016 REFERRING PHYSICIAN: Hospitalist service. REASON FOR CONSULTATION: Chest pain and abnormal cardiac markers. 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 He has a history of nonobstructive coronary artery disease by cardiac catheterization performed in [place] in 2012. He is also a diabetic and has a history of tobacco abuse. He also has been HIV positive since 1988 and has been on protease inhibitor since 1994. He has had no recent complications due to his HIV status. Approximately 11 days ago, he was out walking his dog and he developed severe chest pain. He states that the pain lasted for 1-2 days, but it is difficult to elicit from him when the pain stopped or whether or not it has been continuous or intermittent. He does seem to state that he has had additional chest pain the last few days, which seems to increase with activity. Today, he did not feel well. He thought he was getting gastroenteritis, but was also having additional chest pain. He came to the Emergency Department because tomorrow he is leaving for a trip to the beach. Here in the Emergency Department, cardiac troponins are elevated to 2.7. He was given sublingual nitroglycerin here in the Emergency Department and has found some relief with his chest discomfort. His EKG reveals sinus rhythm with baseline variability, but it would appear that he has either had a previous or recent inferior wall infarct. ALLERGIES: PENICILLIN. PAST MEDICAL HISTORY: As outlined above, the patient is HIV positive and has been on protease inhibitor since 1994. He is a diabetic with a history of cigarette smoking and has known coronary artery disease from a cardiac catheterization performed in [place] in 2012. The patient states he received no treatment for his coronary artery disease and according to our records, he has a 50% LAD stenosis. He has been treated for syphilis and has a history of depression. He has a history of traumatic brain injury as a child and also, he has a scar on his upper lip that suggests that he may have had a cleft palate repair. SOCIAL HISTORY: He is currently a nonsmoker. FAMILY MEDICAL HISTORY: Noncontributory. REVIEW OF SYSTEMS: A 10-point review of systems is negative except for the history of chief complaint. PHYSICAL EXAMINATION: GENERAL: He is alert and oriented, no acute distress. VITAL SIGNS: Blood pressure is 120/70. Pulse is regular at 100 beats per minute. He is in a sinus rhythm. HEENT: He is normocephalic. Pupils are equal and reactive to light. Extraocular muscles are intact bilaterally. NECK: The neck veins are flat. Carotids have good upstrokes bilaterally without bruits. Thyroid is nonpalpable. RESPIRATORY: Breath sounds equal bilaterally and clear to auscultation. CARDIOVASCULAR: Heart has a regular rhythm. Normal S1 and S2. No S3 or S4. No cardiac rubs or murmurs. GASTROINTESTINAL: Abdomen is soft and nontender without organomegaly. EXTREMITIES: Free of edema, digit clubbing, or cyanosis. NEUROLOGIC: Grossly intact. SKIN: Warm to touch. LYMPH NODES: Negative to palpation. LABORATORY DATA: Hemoglobin is 14.5. WBC count is 12.5. INR is 0.9. PTT is 25. creatinine is 1.1. Potassium is 4.6. EKG shows a sinus rhythm with a possible recent inferior wall infarct. Troponins are at 2.7. IMPRESSION: 1. Non-ST elevation myocardial infarct or a recent inferior wall myocardial infarction. 2. Previous history of coronary artery disease as described above. 3. Human immunodeficiency virus positive, on protease inhibitor. 4. Diabetes mellitus. 5. History of previous smoking. RECOMMENDATIONS: I believe the patient should proceed to the cardiac catheterization lab. I have explained the risks, benefits and intent of the procedure to him including the potential for catheter based intervention such as balloon angioplasty or intracoronary stenting. He is willing to proceed and it will be completed this morning. We will have further recommendations following the above.
[2016-12-08] MEDS ORDERED: NITROGLYCERIN/D5W 100 MCG/ML BTL ONE (10:28)
[2016-12-08] MEDS ORDERED: MoRPHine SULFATE 2 MG/ML CARP ONE (10:37)
--- NOTE | 2016-12-08 10:55 | Cardiac Catheterization ---
Procedure Note Procedure Date Dec 08, 2016. Pre-Procedure Diagnosis Non STEMI AUC Score 9 Post-Procedure Diagnosis Severe CAD Procedure(s) Performed Coronary Angiography, Left Heart Cath, LV Angiography Supervisor [employer] Dr. Silverio Territory Representative(s) None Estimated Blood Loss None Medication(s) Nitroglycerin, Versed, Lidocaine 1%, Morphine Summary of Findings Severe 2 vessel CAD Hemodynamics Rest Ao: 113/63 Final Ao: 126/66 LV: 121/14 Recommendations PCI without planned CABG Specimens None Radiation Exposure (mGy) 1614 Contrast (mls) 122 Fluids (cc crystalloids) 90 Procedural Complication(s) None Disposition ICU ACC Data Cardiac Status Clinical evaluation leading to the procedure CAD Presntation: Non STEMI Anginal Classification: CCS III Heart Failure: No Cardiogenic Shock w/in 24Hrs: No Cardiac Arrest w/in 24Hrs: No Imaging studies past 6 months: No Stress studies past 6 months: No Coronary Anatomy Dominant: Right Left Main (% Stenosis): Distal (20) LAD (% Stenosis): Ostial (95) Circumflex (% Stenosis): Ostial (20) RCA (% Stenosis): Mid (95) Left Ventricular Angiography EF (%): 45 Wall Motion: Inferior (Hypokinetic), Anterior (Hypokinetic) Mitral Regurgitation: None Diagnostic Status: Urgent Closure Device Percutaneous Entry Location: Femoral Recommendations: PCI without planned CABG
[2016-12-08] MEDS ORDERED: EPTIFIBATIDE 0.75 MG/ML 75MG VIAL IV ONE (11:10)
[2016-12-08] MEDS ORDERED: EPTIFIBATIDE 2 MG/ML 10 ML VIAL IV ONE (11:10)
[2016-12-08] MEDS ORDERED: FENTANYL CITRATE INJ 50 MCG/1 ML 2 ML VIAL ONE ×2 (11:20→11:52)
[2016-12-08] MEDS ORDERED: LIDOCAINE/EPINEPHRINE 1% 20 ML VIAL ONE (12:15)
[2016-12-08] MEDS ORDERED: METOPROLOL TARTRATE 1 MG/ML VIAL ONE (12:20)
[2016-12-08] MEDS ORDERED: CLOPIDOGREL BISULFATE 300 MG TAB PO ONE (12:22)
[2016-12-08] MEDS ORDERED: ACETAMINOPHEN 325 MG TAB PO PRN (12:45)
[2016-12-08] MEDS ORDERED: MAGNESIUM HYDROXIDE SUSP 30 ML UDC PO PRN (12:45)
[2016-12-08] MEDS ORDERED: ATROPINE SULFATE 0.1 MG/ML 5ML SYR IV PRN (12:45)
[2016-12-08] MEDS ORDERED: LORAZEPAM INJ 0.5 MG in SYRINGE 0 ML IV PRN (12:45)
[2016-12-08] MEDS ORDERED: ALUMINUM/MAGNESIUM/SIMETH (MAALOX MAX) 30 ML UDC PO PRN (12:45)
[2016-12-08] MEDS ORDERED: EPTIFIBATIDE BOLUS / DRIP IV SCH (12:45)
[2016-12-08] MEDS ORDERED: MoRPHine SULFATE 2 MG/ML CARP IV PRN (12:45)
[2016-12-08] MEDS ORDERED: ONDANSETRON INJ 2 MG/ML 2 ML VIAL IV PRN (12:45)
--- NOTE | 2016-12-08 13:21 | Procedure Note ---
Post-Mod Sedation Assessment General Date of Moderate Sedation Dec 08, 2016. Vital Signs: Vital Signs Past 12 Hours Date Time Temp Pulse Resp B/P (MAP) Pulse Ox O2 Delivery O2 Flow Rate FiO2 12/08/16 12:40 88 18 121/78 (92) 93 Room Air 12/08/16 12:35 91 18 127/80 (96) 93 Room Air 12/08/16 12:30 90 18 130/86 (101) 93 Room Air 12/08/16 12:25 91 18 136/84 (101) 99 Mask 4 12/08/16 09:45 98 Room Air 12/08/16 09:44 108 22 119/83 98 Room Air 12/08/16 09:22 102 20 124/75 99 Room Air 12/08/16 09:03 100 18 124/75 99 Room Air 12/08/16 08:46 121 18 96/68 96 Room Air 12/08/16 08:38 119 20 120/82 97 Room Air 12/08/16 08:06 112 20 126/87 96 Room Air 12/08/16 07:57 95 Room Air 12/08/16 07:56 111 12/08/16 07:43 36.6 113 16 118/71 97 Room Air Review - Discharge Criteria Vital Signs Stable: Yes Alert/Oriented/Conversant: Yes Returned to Baseline Mental St: Yes Nausea Absent/Minimal: Yes Pain/Discomfort/Absent/Minimal: Yes Normal/Baseline Respirations: Yes Active Bleeding?: No Pt Received D/C Instructions: N/A Prescriptions Given: None Specific Proced. D/C Criteria Distal Pulses Present (Cardiac: Yes Groin site assessed-Card Cath: Yes Voided Prior To Discharge: No Discharged Patients Adult Escort/Transportation: N/A
--- NOTE | 2016-12-08 13:34 | Cardiac Catheterization ---
Procedure Note Procedure Date Dec 08, 2016. Pre-Procedure Diagnosis Non STEMI AUC Score 9 for revacularization. VITO score 5. Post-Procedure Diagnosis Severe CAD, Successful PCI Procedure(s) Performed Coronary Angiography, PTCA, Bare Metal Stent, Femoral Artery Angiography Grants Specialist Dr. Benedict Rock Contractor(s) Oc Acosta RTR Estimated Blood Loss 30 ml Medication(s) Clopidogrel (600 mg PO post PCI), Fentanyl, Heparin, Integrilin, Nicardipine ( intracoronary), Nitroglycerin (intracoronary), Versed, Lidocaine 1% Summary of Findings Clinical indications: Non ST elevation myocardial infarction, ongoing anginal chest discomfort, and severe coronary artery disease. Prior to his to this procedure the patient underwent diagnostic cardiac catheterization by Dr. Zbigniew Silverio. [place] to the RCA. Catheterization site: 6 Dominican sheath right femoral artery exchanged for a 5 Dominican sheath used in diagnostic procedure. Interventional equipment: : 6 Dominican JR4 guide catheter, Medtronic [place] guidewire, [employer] S title printer 2.5 x 15 millimeter balloon dilatation catheter, Medtronic Integrity 3.5 x 30 millimeter and 3.5 x 15 millimeter bare metal stents.( proximal to mid RCA). Medtronic Integrity 2.25 x 14 millimeter bare metal stent (PDA). Medtronic NC Euphora 3.75 X 15 mm balloon dilatation catheter. Interventional protocol: Intravenous heparin and Integrilin were administered. A therapeutic activated clotting time was documented. PTCA was first performed to the mid and proximal RCA with the Sprinter balloon. A total of 6 inflations were performed to maximum inflation pressure of 15 atmospheres. The 3.5 x 30 millimeter stent was then deployed in the mid RCA at a pressure of 16 atmospheres for duration of 45 seconds. The 3.5 by 15 millimeter stent was then deployed from the proximal RCA to the proximal segment of the mid RCA stent. It was deployed at 16 atmospheres for duration of 45 seconds. The overlap site of the 2 stents was then post dilated with the 2nd stent delivery balloon to a pressure of 16 atmospheres for duration of 15 seconds. Follow-up angiography was performed. With improved flow into the right posterior descending artery it was seen that there was a significant mid PDA stenosis. The 2.25 by 14 millimeter stent was then deployed in the mid PDA at a pressure of 12 atmospheres for duration of 45 seconds. Noncompliant balloon inflations were then performed to the proximal and mid RCA stents with the 3.75 x 15 millimeter noncompliant balloon. Total of 6 inflations to maximum inflation pressure of 20 atmospheres and maximum duration of 20 seconds. Follow-up angiography was then performed from orthogonal projections with the guidewire in place and then with guidewire withdrawn. Right femoral arterial angiography was then performed. Hemostasis: 6 Dominican StarClose vascular closure system. Complications: None. Findings: Guiding angiography revealed a large caliber right coronary artery. The very proximal RCA had a 20 percent stenosis then followed by a 30 percent stenosis and then a 70 percent stenosis. The mid RCA had diffuse atherosclerotic disease. There were 70 percent and then 95-99 percent stenoses. Did not 95-99 percent stenosis was a subtotal stenosis. The latter mid RCA then had a 50 percent stenosis. VITO 2 flow into the PDA. Faint collateral flow from the PDA to the LAD. After PTCA and stent to the proximal and mid RCA VITO 3 flow was present in the distal RCA and the PDA. The mid PDA was noted to have a 75 percent stenosis. Following stent deployment in the mid PDA residual stenosis at this site was 0-10 percent. There was no evidence of dissection, thrombus, perforation, or distal embolic event. VITO 3 flow in the PDA. Following noncompliant balloon inflations to the proximal mid RCA stents the residual stenosis was 0-10 percent. No evidence of dissection, thrombus, perforation, or distal embolic event. VITO 3 flow into the RCA and its branches. There was improved collateral flow to the LAD. There was a marked improvement in the myocardial blush compared to pre intervention angiography. Right femoral artery angiography through the sheath revealed the sheath to be present in the right common femoral artery. No atherosclerotic disease was noted in the right common femoral artery or in the right external iliac artery. Following successful intervention the patient was without any complaints of chest discomfort. He was he electrically and hemodynamically stable. After successful intervention his intravenous nitroglycerin was discontinued. He had arrived in the catheterization lab on intravenous nitroglycerin. In the engineering lab technician he had chest discomfort prior to intervention. Also experienced chest discomfort during balloon inflations. All Conclusion: Moderate proximal and severe mid RCA stenoses. Successful deployment of 2 bare metal stents in proximal and mid RCA. Moderate PDA stenosis. Successful bare metal stent stent to PDA. Discussion: The patient has a total LAD occlusion with [id number] and right to collateral flow. If there is evidence of significant reversible myocardial ischemia or refractory anginal symptoms revascularization to the LAD would need to be considered. This could include left internal mammary artery bypass graft to the LAD. Because of this, bare metal stents were chosen for this procedure so as to decrease the duration of dual antiplatelet therapy. The patient will continue on aspirin, atorvastatin, metoprolol, and lisinopril. He was given a loading dose of clopidogrel post PCI. At a minimum he should remain on dual antiplatelet therapy for at least 1 month. He should remain on aspirin therapy indefinitely. The patient will have continued cardiology follow -up with the [facility] cardiology service. He is followed by [facility] cardiology as an outpatient. He will remain on intravenous Integrilin for at least 18 hours post PCI. Serial electrocardiograms, cardiac enzymes , metabolic profiles, and CBCs were ordered. An echocardiogram has been ordered to further assess left ventricular systolic function. It was discussed by me with the patient that he received excessive radiation and contrast dye during this procedure. He will have close monitoring of his renal function. Will be given intravenous fluids post procedure to help decrease the risk of contrast dye nephropathy. He was given a 500 milliliter bolus of normal saline during the procedure. He was advised of the signs for which to monitor himself in regards to the radiation exposure. Hemodynamics Rest Ao: 97/61/75 mm Hg Final Ao: 137/72/102 mm Hg LV: NA Recommendations Medical therapy and/or Counseling, PCI without planned CABG Specimens None Radiation Exposure (mGy) Total of 5179 for both diagnostic and interventional procedures. Contrast (mls) Total of 347 milliliters of Visipaque for both procedures. Fluids (cc crystalloids) Total of 850 milliliters for both diagnostic and interventional procedure. Drains None Anesthesia Intravenous Versed and fentanyl during PCI procedure. Procedural Complication(s) None Disposition ICU ACC Data Cardiac Status Clinical evaluation leading to the procedure CAD Presntation: Non STEMI Anginal Classification: CCS IV Heart Failure: No Cardiogenic Shock w/in 24Hrs: No Cardiac Arrest w/in 24Hrs: No Imaging studies past 6 months: No Stress studies past 6 months: No Standard Exercise Stress Test: No Stress Echocardiogram: No Stress Testing w/SPECT MPI: No Cardiac CTA: No Coronary Anatomy Dominant: Right (For complete details of diagnostic procedure please see diagnostic cardiac catheterization report performed by Dr. Zbigniew Silverio.) Diagnostic Physician's Name: Zbigniew Silverio, DO Status: Urgent Closure Device Percutaneous Entry Location: Femoral Closure Device: StarClose Recommendations: Medical therapy and/or Counseling, PCI without planned CABG PCI Indication: PCI for high risk Non-STEMI Lesion Segment Name: Proximal and mid RCA Culprit Artery: Yes Stenosis Prior to Rx (%): 70,70, 95-99 Chronic Total Occlusion: No IVUS: No FFR: No Pre-Procedure VITO Flow: 2 Previously Treated Lesion: No Lesion Complexity: High/C Lesion Length (mm): 45 Thrombus Present: No Bifurcation Lesion: No Guidewire Across Lesion: Yes Guidewire: Post-Procedure VITO Flow: 3 Device(s) Deployed: Yes Type of Device(s): Medtronic Integrity 3.5 by 30 millimeter and 3.5 x 15 millimeter bare metal stent. Deployed in overlapping fashion. Entire stented region post dilated with 3.75 x 15 millimeter noncompliant balloon. Lesion #2 Segment Name: Mid PDA Culprit Artery: No Stenosis Prior to Rx (%): 75 Chronic Total Occlusion: No IVUS: No FFR: No Previously Treated Lesion: No Lesion Complexity: Non-High/Non-C Lesion Length (mm): 10 Thrombus Present: No Bifurcation Lesion: No Guidewire Across Lesion: Yes Guidewire: Post-Procedure VITO Flow: 3 Device(s) Deployed: Yes Type of Device(s): Medtronic Integrity 2.25 x 14 millimeter bare metal stent. Intraprocedure Events Significant Dissection: No Perforation: No
[2016-12-08 14:03] LABS: HEMATOCRIT 35.5 % (42-52); MEAN CELL VOLUME 96.7 fL (80-100); MEAN CORPUSCULAR HEMOGLOBIN 34.3 pg (25-34); MEAN PLATELET VOLUME 9.6 fL (7.4-10.4); PLATELET COUNT 167 K/uL (130-400); RED BLOOD COUNT 3.67 M/uL (4.7-6.1); WHITE BLOOD COUNT 11.17 K/uL (4.8-10.8)
[2016-12-08 14:15] LABS: MEAN CORPUSCULAR HGB CONC 35.5 g/dl (32-36)
[2016-12-08] MEDS: SODIUM CHLORIDE 0.9% 1000ML 1,000 ML IV SCH ×2 (14:20→20:57)
--- NOTE | 2016-12-08 14:23 | Critical Care Consultation ---
Critical Care Consultation Date of Consultation: Dec 08, 2016. Attending Physician: Sami Bernabe Reason for Consultation: NSTEMI s/p PCI/stenting History of Present Illness This is a 61 yo M with hx significant for CAD s/p Cath (10 yrs ago) without stenting( Followed by Dr. Hays), HTN, HLD, T2DM, GERD, HIV on HAART (follows with Dr. Smyth) , DVT (until late October on Warfarin) presenting wih Chest pain. Chest pain started 11 days ago and constant, Pressure-like, substernal pain up to 8/10 intensity with radiation to the Back and Left neck. Patient initially attributed symptoms to GERD and took antacids however, pain did not resolved and kept him awake at night. He did tot take any medications for pain. There were no aggravating factors. He also reports SOB, N/V and 2 episodes of diarrhea. Upon arrival to ED, patient's jennifer;s were stable, EKG findings revealing NSR with suspected previous or recent inferior wall infarct. Troponin was elevated 2.7 Past Medical/Surgical History Past Med HX CAD HTN HLD T2DM GERD HIV Lumbar stenosis Past Surg HX Back surgery Family History Colon cancer Diabetes mellitus Myocardial infarction Social History Smoking Status: Former Smoker Housing Status: lives alone Occupation Status: retired Allergies Coded Allergies: Penicillins (Verified Allergy, Mild, RASH, 12/08/16) Home Medications Scheduled Abacavir Sulfate-Lamivudine (Epzicom), 1 TAB PO QAM Aspirin (Aspirin Ec), 81 MG PO HS Atorvastatin (Lipitor), 10 MG PO HS Cyanocobalamin (Vitamin B-12 1000 Mcg), 1,000 MCG SL QAM Darunavir Ethanolate (Prezista), 600 MG PO BID Gabapentin (Neurontin), 600 MG PO TID Isosorbide Mononitrate Ext Rel (Imdur Ext Rel), 30 MG PO BID Lisinopril (Zestril), 2.5 MG PO QAM Metformin Hcl (Glucophage), 500 MG PO BID Metoprolol Tartrate (Lopressor) (Lopressor), 25 MG PO BID Omeprazole (Prilosec), 20 MG PO QAM Oxybutynin Chloride (Oxybutynin Chloride ER), 5 MG PO QAM Ritonavir (Norvir), 100 MG PO BID Venlafaxine Hcl (Venlafaxine Hcl Er), 1 TAB PO QAM Current Inpatient Medications Current Inpatient Medications Medications (Trade) Dose Ordered Sig/Margot Route Start Time Stop Time Status Last Admin Dose Admin Nitroglycerin (Nitrostat Tab) 0.4 mg PRN PRN SL 12/08/16 08:30 01/07/17 08:29 12/08/16 08:37 0.4 MG Sodium Chloride 1,000 ml @ 80 mls/hr [id number] IV 12/08/16 09:39 12/08/16 22:08 Miscellaneous (Dc All Anticoagulants) 1 ea TODAY@0945 N/A 12/08/16 09:45 12/08/16 15:00 Sodium Chloride 1,000 ml @ 125 mls/hr Q8H IV 12/08/16 12:45 01/07/17 12:44 UNV Atropine Sulfate (Atropine Sulfate 0.1MG/Ml Inj) 0.5 mg ONE PRN IV 12/08/16 12:45 01/07/17 12:44 Ondansetron HCl (Zofran Inj) 4 mg Q6H PRN IV 12/08/16 12:45 01/07/17 12:44 Aspirin (Ecotrin Tab) 81 mg QAM PO 12/09/16 09:00 01/08/17 08:59 UNV Clopidogrel Bisulfate (plAVix TAB) 75 mg QAM PO 12/09/16 09:00 01/08/17 08:59 UNV Acetaminophen (Tylenol Tab) 650 mg Q4H PRN PO 12/08/16 12:45 01/07/17 12:44 Morphine Sulfate (MoRPHine SULFATE INJ) 1 mg Q5M PRN IV 12/08/16 12:45 Lorazepam 0.5 mg/ Syringe 0.25 ml @ 1 mls/min Q6H PRN IV 12/08/16 12:45 01/07/17 12:44 UNV Eptifibatide (Integrilin Bolus / Drip) 1 ea ONE IV 12/08/16 12:45 01/07/17 12:44 UNV Nitroglycerin (Nitrostat Tab) 0.4 mg UD PRN SL 12/08/16 12:45 01/07/17 12:44 Al Hydrox/Mg Hydrox/Simethicone (Maalox Max Susp) 15 ml Q4H PRN PO 12/08/16 12:45 01/07/17 12:44 Magnesium Hydroxide (Milk Of Magnesia Susp) 30 ml Q12H PRN PO 12/08/16 12:45 01/07/17 12:44 Aspirin (Ecotrin Tab) 81 mg HS PO 12/08/16 21:00 01/07/17 20:59 UNV Atorvastatin Calcium (Lipitor Tab) 80 mg HS PO 12/08/16 21:00 01/07/17 20:59 UNV Cyanocobalamin (Vitamin B-12 Tab) 1,000 mcg QAM PO 12/09/16 09:00 01/08/17 08:59 UNV Gabapentin (Neurontin Tab) 600 mg TID PO 12/08/16 14:00 01/07/17 13:59 UNV Isosorbide Mononitrate (Imdur Ext Rel Tab) 30 mg BID PO 12/08/16 21:00 01/07/17 20:59 UNV Lisinopril (Zestril Tab) 2.5 mg QAM PO 12/09/16 09:00 01/08/17 08:59 UNV Metoprolol Tartrate (Lopressor Tab) 25 mg BID PO 12/08/16 21:00 01/07/17 20:59 UNV Oxybutynin Chloride (Ditropan-Xl Tab) 5 mg QAM PO 12/09/16 09:00 01/08/17 08:59 UNV Venlafaxine HCl (effeXOR EXTENDED REL CAP) 150 mg QAM PO 12/09/16 09:00 01/08/17 08:59 UNV Non-Formulary Medication (Abacavir Sulfate-Lamivudine (Epzicom)) 1 tab QAM PO 12/09/16 09:00 01/08/17 08:59 UNV Non-Formulary Medication (Darunavir Ethanolate (Prezista)) 600 mg BID PO 12/08/16 21:00 01/07/17 20:59 UNV Non-Formulary Medication (Omeprazole (Prilosec)) 20 mg QAM PO 12/09/16 09:00 01/08/17 08:59 UNV Non-Formulary Medication (Ritonavir (Norvir)) 100 mg BID PO 12/08/16 21:00 01/07/17 20:59 UNV Review of Systems Constitutional: + fatigue, No fever, No chills Respiratory: + shortness of breath, No cough, No sputum Cardiovascular: + chest pain, + palpitations, No edema Abdomen: + nausea, + diarrhea, No pain Genitourinary - Male: No dysuria, No urinary frequency Integumentary: No rash, No itch Allergic / Immunologic: + problem reported (HIV) Physical Exam Date Time Temp Pulse Resp B/P (MAP) Pulse Ox O2 Delivery O2 Flow Rate FiO2 12/08/16 12:40 88 18 121/78 (92) 93 Room Air 12/08/16 12:35 91 18 127/80 (96) 93 Room Air 12/08/16 12:30 90 18 130/86 (101) 93 Room Air 12/08/16 12:25 91 18 136/84 (101) 99 Mask 4 12/08/16 09:45 98 Room Air 12/08/16 09:44 108 22 119/83 98 Room Air 12/08/16 09:22 102 20 124/75 99 Room Air 12/08/16 09:03 100 18 124/75 99 Room Air 12/08/16 08:46 121 18 96/68 96 Room Air 12/08/16 08:38 119 20 120/82 97 Room Air 12/08/16 08:06 112 20 126/87 96 Room Air 12/08/16 07:57 95 Room Air 12/08/16 07:56 111 12/08/16 07:43 36.6 113 16 118/71 97 Room Air GENERAL: alert, fatigued , not in distress EYE EXAM: normal conjunctiva, PERRL and EOM's grossly intact OROPHARYNX: no exudate, no erythema, lips, buccal mucosa, and tongue normal and mucous membranes are moist NECK: NO JVD, supple, no nuchal rigidity, no adenopathy, non-tender LUNGS: Clear to auscultation. Normal chest wall mechanics HEART: no murmurs, S1 normal and S2 normal ABDOMEN: abdomen soft, non-tender, normo-active bowel sounds, no masses, no rebound or guarding. UPPER EXTREMITIES: upper extremities are grossly normal. LOWER EXTREMITIES: No pitting edema. NEURO EXAM: Normal sensorium, cranial nerves II-XII grossly intact, normal speech, no gross weakness of arms, no gross weakness of legs. Laboratory Results Last 24 Hours Test 12/08/16 07:56 12/08/16 08:16 12/08/16 11:08 12/08/16 11:52 White Blood Count 12.51 K/uL Red Blood Count 4.14 M/uL Hemoglobin 14.5 g/dL Hematocrit 40.3 % Mean Corpuscular Volume 97.3 fL Mean Corpuscular Hemoglobin 35.0 pg Mean Corpuscular Hemoglobin Concent 36.0 g/dl Platelet Count 199 K/uL Mean Platelet Volume 10.3 fL Neutrophils (%) (Auto) 72.0 % Lymphocytes (%) (Auto) 12.5 % Monocytes (%) (Auto) 10.6 % Eosinophils (%) (Auto) 4.4 % Basophils (%) (Auto) 0.2 % Neutrophils # (Auto) 9.00 K/uL Lymphocytes # (Auto) 1.57 K/uL Monocytes # (Auto) 1.32 K/uL Eosinophils # (Auto) 0.55 K/uL Basophils # (Auto) 0.03 K/uL RDW Standard Deviation 47.4 fL RDW Coefficient of Variation 13.3 % Immature Granulocyte % (Auto) 0.3 % Immature Granulocyte # (Auto) 0.04 K/uL Prothrombin Time 10.0 SECONDS Prothromb Time International Ratio 0.9 Activated Partial Thromboplast Time 25.1 SECONDS Partial Thromboplastin Ratio 1.0 Sodium Level 137 mmol/L Potassium Level 4.6 mmol/L Chloride Level 103 mmol/L Carbon Dioxide Level 26 mmol/L Anion Gap 8.0 mmol/L Blood Urea Nitrogen 14 mg/dl Creatinine 1.10 mg/dl Est Creatinine Clear Calc Drug Dose 77.7 ml/min Estimated GFR () 82.4 Estimated GFR (Non- 71.1 BUN/Creatinine Ratio 12.5 Random Glucose 193 mg/dl Calcium Level 9.8 mg/dl Total Bilirubin 0.5 mg/dl Aspartate Amino Transf (AST/SGOT) 52 U/L Alanine Aminotransferase (ALT/SGPT) 56 U/L Alkaline Phosphatase 76 U/L Total Creatine Kinase 453 U/L Creatine Kinase MB 12.5 ng/ml Creatine Kinase MB Ratio 2.8 Total Protein 8.2 gm/dl Albumin 3.9 gm/dl Globulin 4.3 gm/dl Albumin/Globulin Ratio 0.9 Lipase 376 U/L Bedside D-Dimer 357 ng/mlFEU Bedside Troponin I 2.740 ng/ml Kaolin Activated Coagulation Time 290 SECONDS 263 SECONDS Test 12/08/16 12:17 12/08/16 12:36 Kaolin Activated Coagulation Time 169 SECONDS Creatine Kinase MB Ratio Assessment & Plan 61 yo M w/ hx significant for CAD s/p Cath (10 yrs ago) without stenting( Followed by Dr. Hays), HTN, HLD, T2DM, GERD, HIV on HAART (follows with Dr. 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 s/p 2 bare metal stents in proximal and mid RCA. - Moderate PDA stenosis. Successful bare metal stent stent to PDA CV drips: Remains off vasoactive medications EKG: sinus tachy, old inferior wall infarct Metoprolol, Lisinopril,Lipitor, ASA, Plavix, Imdur Fluids/Renal: Cr .81 IV Fluids: IV NS. Fluids from intravenous medications [place]: None GI/Nutrition: GERD Feeding: Diabetic Diet Prophylaxis: On PPI Endocrine: T2DM Last 24 hour glucose: Ranging 147 to193 Insulin protocol: Yes; Drip: No Hematology: Hemoglobin 12.6 Integrilin Drip x 18hrs Started on ASA, Plavix Infectious Disease/Immunology: HIV Tmax: Afebrile, no leukocytosis HIV: continue home antiretroviral regimen Attending note. the pt seen and examined separately, chart reviewed, for further details please refer to Dr. Brown note above. agree with the plan. in summary this is 61 yo, m, with hx of HTN , HLP, CAD, HIV , DM, DVT on coumadin , presented to the hospital with severe Chest pain and r/in for NSTEMI , under went PCI with 3 stents placed to the RCA, post cath brought to the ICU for monitoring on integrilin and appeared comfortable, chest pain free, groin is ok, VSS , S1S2 RRR, lungs are clear, abdomen is benign, groin site is healing no induration, pedals are positive. neuro intact. labs reviewed, chronic leukocytosis, CXR is normal. plan to mintor per cardiology protocol post cath, continue current treatment, watch closely for any signs of bleeding or recurrent chest pain,. discussed with the staff on rounds in details. CCT 35 min. Resident Tracking Resident Involvement: Resident Care Provided Care Provided: Adult [facility]
[2016-12-08 14:24] LABS: BUN/CREATININE RATIO 14.6 (10-20); CALCIUM 8.5 mg/dl (8.5-10.1); CREATININE 0.81 mg/dl (0.60-1.40); MAGNESIUM 1.4 mg/dl (1.8-2.4); POTASSIUM 4.4 mmol/L (3.5-5.1)
[2016-12-08 14:25] LABS: ESTIMATED AVERAGE GLUCOSE 140 mg/dl; HA1C FLAG Normal (Normal)
[2016-12-08] MEDS ORDERED: GLUCOSE 10 TABS/TUBE PO PRN (14:30)
[2016-12-08] MEDS ORDERED: DEXTROSE 50% 50 ML SYR IV PRN (14:30)
[2016-12-08] MEDS ORDERED: GLUCAGON FOR INJ 1 MG VIAL SQ PRN (14:30)
[2016-12-08] MEDS ORDERED: GLUCOSE 40% GEL 15 GM TUBE PO PRN (14:30)
[2016-12-08 14:31] LABS: BASO % 0.1 %; BASO ABS # 0.01 K/uL (0-0.2); COMPLETE YES; EOS % 4.9 %; IG% 0.3 %; LYMPH % 13.9 %; LYMPH ABS # 1.55 K/uL (1.2-3.4); MONO % 14.6 %; NEUT % 66.2 %
[2016-12-08 14:32] LABS: CHOLESTEROL/HDL RATIO 3.7
--- NOTE | 2016-12-08 14:51 | History and Physical ---
History & Physical Date & Time of Service: Dec 08, 2016 at 14:26 Chief Complaint: Acs, Cad, S/P Right Coronary Artery Stent.. Primary Care Physician: RV. Pablo MD History of Present Illness Source: patient, clinic records, hospital records This is a 61 y/o male with a history of ID, HTN, HLD, DM II, HIV, h/o DVT, depression, and GERD who presented to the ED on 12/08 with chest pain x 11 days. The patient described the pain as a centra chest pressure that radiated to both of his sides and to his back. He rated the pain a 8/10 at its worst. The pain had become progressively worse, prompting him to come to the ED for further evaluation. The patient is followed by Dr. Silverio who took him urgently to cardiac cath. The patient had 2 bare metal stents placed in the RCA by Dr. Benedict and taken to the ICU. The patient was evaluated by me following his cath. He still complains of a 3/10 central chest pressure radiating around his body to his back. His nausea is resolved and he has not vomited since first arriving to the ED. His diarrhea that he had [employer] also seems resolved. He still complains of some shortness of breath as well as palpitations. The patient denies fevers, chills, sweats, claudication, cough, wheezing, nausea, vomiting, abdominal pain, dysuria, hematuria, urinary retention, paralysis, weakness, numbness and tingling. Past Medical/Surgical History Medical Problems: (1) Anxiety Disorder, Unspecified Status: Chronic (2) Cervicalgia Status: Chronic (3) Deep vein thrombosis Status: Resolved (4) Gastro-Esophageal Reflux Disease Without Esophagitis Status: Chronic (5) Human Immunodeficiency Virus [Hiv] Disease Status: Chronic (6) Hyperlipidemia, Unspecified Status: Chronic (7) Hypertension Status: Chronic (8) Injury of left shoulder Status: Resolved (9) Injury of left shoulder Status: Resolved (10) Lumbar stenosis Status: Chronic (11) Old Myocardial Infarction Status: Chronic (12) Polyneuropathy, Unspecified Status: Chronic (13) Type 2 Diabetes Mellitus Without Complications Status: Chronic GERD Family History Colon cancer Diabetes mellitus Myocardial infarction Social History Smoking Status: Former Smoker (quit in 1994) Smokeless Tobacco Use: No Alcohol Use: socially Drug Use: none Marital Status: single Housing status: lives alone Occupational Status: retired Allergies Coded Allergies: Penicillins (Verified Allergy, Mild, RASH, 12/08/16) Home Medications Scheduled Abacavir Sulfate-Lamivudine (Epzicom), 1 TAB PO QAM Aspirin (Aspirin Ec), 81 MG PO HS Atorvastatin (Lipitor), 10 MG PO HS Cyanocobalamin (Vitamin B-12 1000 Mcg), 1,000 MCG SL QAM Darunavir Ethanolate (Prezista), 600 MG PO BID Gabapentin (Neurontin), 600 MG PO TID Isosorbide Mononitrate Ext Rel (Imdur Ext Rel), 30 MG PO BID Lisinopril (Zestril), 2.5 MG PO QAM Metformin Hcl (Glucophage), 500 MG PO BID Metoprolol Tartrate (Lopressor) (Lopressor), 25 MG PO BID Omeprazole (Prilosec), 20 MG PO QAM Oxybutynin Chloride (Oxybutynin Chloride ER), 5 MG PO QAM Ritonavir (Norvir), 100 MG PO BID Venlafaxine Hcl (Venlafaxine Hcl Er), 1 TAB PO QAM Review of Systems Constitutional: + weakness, + fatigue, No fever, No chills, No sweats Eyes: No worsening of vision, No eye pain, No diplopia ENT: No hearing loss, No sore throat, No trouble swallowing Respiratory: + shortness of breath, No cough, No wheezing Cardiovascular: + chest pain, + palpitations, No claudication Abdomen: No pain, No nausea, No vomiting, No diarrhea Musculoskeletal: No joint pain, No muscle pain, No calf pain Genitourinary - Male: No hematuria, No dysuria, No urinary retention Neurologic: No paralysis, No weakness, No numbness/tingling Integumentary: No rash, No itch, No color change Physical Exam Vital Signs Date Time Temp Pulse Resp B/P (MAP) Pulse Ox O2 Delivery O2 Flow Rate FiO2 12/08/16 14:01 100 21 119/73 (88) 12/08/16 13:46 92 24 112/67 (82) 12/08/16 13:31 36.6 99 18 109/65 (80) 100 Room Air 12/08/16 12:55 82 18 126/76 (93) 94 Room Air 12/08/16 12:40 88 18 121/78 (92) 93 Room Air 12/08/16 12:35 91 18 127/80 (96) 93 Room Air 12/08/16 12:30 90 18 130/86 (101) 93 Room Air 12/08/16 12:25 91 18 136/84 (101) 99 Mask 4 12/08/16 09:45 98 Room Air 12/08/16 09:44 108 22 119/83 98 Room Air 12/08/16 09:22 102 20 124/75 99 Room Air 12/08/16 09:03 100 18 124/75 99 Room Air 12/08/16 08:46 121 18 96/68 96 Room Air 12/08/16 08:38 119 20 120/82 97 Room Air 12/08/16 08:06 112 20 126/87 96 Room Air 12/08/16 07:57 95 Room Air 12/08/16 07:56 111 12/08/16 07:43 36.6 113 16 118/71 97 Room Air General appearance: Well-developed, well-nourished, no apparent distress Head: Normocephalic, atraumatic Eyes: Normal inspection, PERRL, EOMI ENT: Normal ENT inspection, hearing grossly normal, pharynx normal Neck: Supple, no JVD, trachea midline Respiratory/Chest: +Slight crackles in bases. Normal breath sounds, no respiratory distress Cardiovascular: +Tachycardia. Regular rhythm, no gallop, no murmur Abdomen/GI: +RLQ and suprapubic area TTP. Right groin cath site c/d/i. Normal bowel sounds, soft Extremities/Musculoskeletal: Normal inspection, no calf tenderness, no pedal edema Neurological/Psych: Alert, normal mood/affect, oriented x 3 Skin: Normal color, warm/dry, no rash Diagnostics Laboratory Results Results Past 24 Hours Test 12/08/16 07:56 12/08/16 08:16 12/08/16 11:08 12/08/16 11:52 Range/Units White Blood Count 12.51 4.8-10.8 K/uL Red Blood Count 4.14 4.7-6.1 M/uL Hemoglobin 14.5 14.0-18.0 g/dL Hematocrit 40.3 42-52 % Mean Corpuscular Volume 97.3 80-100 fL Mean Corpuscular Hemoglobin 35.0 25-34 pg Mean Corpuscular Hemoglobin Concent 36.0 32-36 g/dl Platelet Count 199 130-400 K/uL Mean Platelet Volume 10.3 7.4-10.4 fL Neutrophils (%) (Auto) 72.0 % Lymphocytes (%) (Auto) 12.5 % Monocytes (%) (Auto) 10.6 % Eosinophils (%) (Auto) 4.4 % Basophils (%) (Auto) 0.2 % Neutrophils # (Auto) 9.00 1.4-6.5 K/uL Lymphocytes # (Auto) 1.57 1.2-3.4 K/uL Monocytes # (Auto) 1.32 0.11-0.59 K/uL Eosinophils # (Auto) 0.55 0-0.5 K/uL Basophils # (Auto) 0.03 0-0.2 K/uL RDW Standard Deviation 47.4 36.4-46.3 fL RDW Coefficient of Variation 13.3 11.5-14.5 % Immature Granulocyte % (Auto) 0.3 % Immature Granulocyte # (Auto) 0.04 0.00-0.02 K/uL Prothrombin Time 10.0 9.0-12.0 SECONDS Prothromb Time International Ratio 0.9 0.9-1.1 Activated Partial Thromboplast Time 25.1 21.0-31.0 SECONDS Partial Thromboplastin Ratio 1.0 Sodium Level 137 136-145 mmol/L Potassium Level 4.6 3.5-5.1 mmol/L Chloride Level 103 98-107 mmol/L Carbon Dioxide Level 26 21-32 mmol/L Anion Gap 8.0 3-11 mmol/L Blood Urea Nitrogen 14 7-18 mg/dl Creatinine 1.10 0.60-1.40 mg/dl Est Creatinine Clear Calc Drug Dose 77.7 ml/min Estimated GFR () 82.4 Estimated GFR (Non- 71.1 BUN/Creatinine Ratio 12.5 10-20 Random Glucose 193 70-99 mg/dl Calcium Level 9.8 8.5-10.1 mg/dl Total Bilirubin 0.5 0.2-1 mg/dl Aspartate Amino Transf (AST/SGOT) 52 15-37 U/L Alanine Aminotransferase (ALT/SGPT) 56 12-78 U/L Alkaline Phosphatase 76 45-117 U/L Total Creatine Kinase 453 39-308 U/L Creatine Kinase MB 12.5 0.5-3.6 ng/ml Creatine Kinase MB Ratio 2.8 0-3.0 Total Protein 8.2 6.4-8.2 gm/dl Albumin 3.9 3.4-5.0 gm/dl Globulin 4.3 2.5-4.0 gm/dl Albumin/Globulin Ratio 0.9 0.9-2 Lipase 376 73-393 U/L Bedside D-Dimer 357 0-450 ng/mlFEU Bedside Troponin I 2.740 0-0.045 ng/ml Kaolin Activated Coagulation Time 290 263 94-140 SECONDS Test 12/08/16 12:17 12/08/16 12:36 12/08/16 13:53 Range/Units Kaolin Activated Coagulation Time 169 94-140 SECONDS Creatine Kinase MB Ratio 0-3.0 White Blood Count 11.17 4.8-10.8 K/uL Red Blood Count 3.67 4.7-6.1 M/uL Hemoglobin 12.6 14.0-18.0 g/dL Hematocrit 35.5 42-52 % Mean Corpuscular Volume 96.7 80-100 fL Mean Corpuscular Hemoglobin 34.3 25-34 pg Mean Corpuscular Hemoglobin Concent 35.5 32-36 g/dl Platelet Count 167 130-400 K/uL Mean Platelet Volume 9.6 7.4-10.4 fL RDW Standard Deviation 46.8 36.4-46.3 fL RDW Coefficient of Variation 13.3 11.5-14.5 % Sodium Level 138 136-145 mmol/L Potassium Level 4.4 3.5-5.1 mmol/L Chloride Level 105 98-107 mmol/L Carbon Dioxide Level 25 21-32 mmol/L Anion Gap 8.0 3-11 mmol/L Blood Urea Nitrogen 12 7-18 mg/dl Creatinine 0.81 0.60-1.40 mg/dl Est Creatinine Clear Calc Drug Dose 105.5 ml/min Estimated GFR () 109.6 Estimated GFR (Non- 94.6 BUN/Creatinine Ratio 14.6 10-20 Random Glucose 147 70-99 mg/dl Estimated Average Glucose 140 mg/dl Hemoglobin A1c 6.5 4.5-5.6 % Calcium Level 8.5 8.5-10.1 mg/dl Magnesium Level 1.4 1.8-2.4 mg/dl Diagnostic Radiology Patient Name: CAL STINSON Unit Number: [id number] Dictated: 12/08/16833 Transcribed: 12/08/16833 JRB Printed Date/Time: [~ rep prt dt]/[~ rep prt tm] [~ rep ct labl] - [~ rep ct ivnm] [facility] [place] [address] Dictated: 12/08/16833 Transcribed: 12/08/16833 JRB Printed Date/Time: [~ rep prt dt]/[~ rep prt tm] [~ rep ct labl] - [~ rep ct ivnm] Patient: CAL STINSON Address1: [address] [place] [address] Rec: [id number] Address2: Acct ID: [id number] [facility] Zip: [place] [address] Date: 1955 Sex: M Room/Bed: Ref Phy: RV. Pablo MD SC: JENNIFER Att Phy: Report #: [id number] Fatoumata Phy: RV. Pablo MD Test: [id number] Admit Phy: Medical Associate: OZIEL Interpreting Phy: Nima Stephens D.O. Diagnosis: CHEST PAINS, NAUSEA POSS. FOOD POISONING Ordering Phy: Lauren Calderon Service Date: 12/08/16 Admit Date: 12/08/16 MNE: [id number] CONF: DICTATED BY: Nima Stephens D.ORylee]] CC: RV. Pablo MD Costlow, Annamarie C.,Yung Maurice M.D. Endcc: [~ rep ct add3]] CHEST ONE VIEW PORTABLE HISTORY: 61 years-old Male acute chest pain with nausea, vomiting and diarrhea COMPARISON: Chest radiograph 03/28/2016 TECHNIQUE: Portable upright AP view of the chest FINDINGS: The cardiomediastinal and hilar silhouettes are within normal limits. There is atherosclerosis of the aorta. There is no pneumothorax, pleural effusion or focal airspace consolidation. Endplate spurring is seen throughout the spine. IMPRESSION: No acute cardiopulmonary process. The above report was generated using voice recognition software. It may contain grammatical, syntax or spelling errors. Electronically signed by: Jose Stephens M.D. 12/08/2016 8:35 AM Dictated Date/Time: 12/08/2016 8:34 AM The status of this report is Signed. Draft = Not yet reviewed or approved by Radiologist. Signed = Reviewed and approved by Radiologist. <AttendingPhy></AttendingPhy> <FamilyPhy>RV. Pablo MD</ FamilyPhy> <PrimaryPhy>RV. Pablo MD</PrimaryPhy> <UnitNumber> [id number]</UnitNumber> <VisitNumber>[id number]</VisitNumber> <PatientName> CAL STINSON</PatientName> <DateOfBirth>1955</DateOfBirth> <Location> C.EDB</Location> <ServiceDate>12/08/16</ServiceDate> <MNE>ESINDI</MNE> < OrderingPhy>Lauren Calderon</OrderingPhy> <OrderingPhyMNE>f rep ord dr cheng</OrderingPhyMNE> <DictatingPhyMNE>f rep dict dr cheng</DictatingPhyMNE> < CCListMNE>f rep ct mnmauri</CCListMNE> <AdmittingPhyMNE>f pt admit dr cheng</ AdmittingPhyMNE> <AttendingPhyMNE>f pt attend dr cheng</AttendingPhyMNE> <ConsultingPhyMNE>f pt consult dr cheng</ConsultingPhyMNE> <FamilyPhyMNE>f pt fam dr cheng</FamilyPhyMNE> <OtherPhyMNE>f pt other dr cheng</OtherPhyMNE> < PrimaryPhyMNE>f pt prim care dr cheng</PrimaryPhyMNE> <ReferringPhyMNE>f pt referring dr cheng</ReferringPhyMNE> EKG Reviewed EKG and agree with interpretation as follows: 104 bpm, sinus tachycardia, old inferior infarct Impression Assessment and Plan 61 y/o male with a history of ID, HTN, HLD, DM II, HIV, h/o DVT, depression, and GERD who presented to the ED on 12/08 with chest pain x 11 days. Taken urgently to recyclable materials collector. Pt found to have moderate proximal and severe mid RCA stenoses. 2 bare metal stents placed in RCA. There was moderate PDA stenosis, 1 bare metal stent placed to PDA. There is also total LAD occlusion but with collateral flow. If there are signs of significant myocardial ischemia or refractory angina, revascularization to the LAD may be needed. NSTEMI s/p cardiac cath x 3 stents, h/o inferior ID -Admit to ICU -Consult cardiology, appreciate recs: spoke to Dr. Benedict following the cath. Orders for Integrelin placed, received loading dose of Plavix in recyclable materials collector. Pt is to continue ASA, atorvastatin, metoprolol, lisinospril. DAPT for at least 1 month due to bare metal stents and possible need for CABG to LAD in near future. Atorvastatin increased to 80 mg due to acute event. Pt follows with Dr. Silverio outpatient, who will take over care. -Repeat CBC and PRP -A1c and lipid panel pending -Trend troponin until peaks after cath -Start atorvastatin 80 mg PO qd and Plavix 75 mg PO qd -Continue Lopressor 25 mg PO BID, ASA, lisinopril 2.5 mg PO qd, and Imdur 90 mg PO qd HTN--stable -Continue Lopressor, lisinopril and Imdur as above HLD -Atorvastatin as above, lipids pending DM II--last HgbA1c checked 10/13 was 7.1 -Hold metformin -Insulin sliding scale -Check BSGs q ac and qhs HIV--pt reports this is stable, follows with Dr. Smyth who he last saw September or October 2016 -Continue Epzicom 600/300 mg PO qd, Norvir 100 mg PO BID, and Prezista 600 mg PO BID H/o DVT--resolved -Pt had been on warfarin, recently taken off as repeat ultrasound showed resolution Depression -Continue Effexor 150 mg PO qd Degenerative disc disease -Continue gabapentin 600 mg PO TID GERD -Prilosec changed to Protonix 40 mg PO qd DVT prophylaxis -Currently on Integrilin drip -SCDs Code Status -Level I, FULL RESUSCITATION STATUS Resident Physician Supervision Note: I was present with Dr. Jasper EARL during the history and exam. I discussed the case with the PA and agree with the findings and plan as documented in the note. Any exceptions or clarifications are listed here: 61 y/o M Hx CAD - previous ID, HTN, HPL, HIV - presented with CP - persisted and pt was directed to recyclable materials collector - he is now post 3 stents and states his pain has resolved OE AAO x 3 S1,2 R CTAB NT, ND No CCE P: Successfully stented although will likely need bypass in future due to multivessel disease Management is optimal under cardiology - Continues Integrilin, Heparin, Statin, Plavix, ASA Cont HIV meds on DC Documented By: Fredi Jensen Level of Care Critical Care Advanced Directives Existing Living Will: Yes Existing Power of Chuck Wagon Cook: Yes Resuscitation Status FULL RESUSCITATION VTE Prophylaxis VTE Risk Assessment Done? Y/N: Yes Risk Level: Moderate Given or contraindicated: SCD's
[2016-12-08 15:57] LABS: URINE APPEARANCE CLEAR (CLEAR); URINE BILIRUBIN NEG (NEG); URINE COLOR YELLOW; URINE NITRITE NEG (NEG); URINE SPECIFIC GRAVITY > 1.045 (1.000-1.030); UROBILINOGEN NEG (NEG)
[2016-12-08 16:00] LABS: MANUAL MICROSCOPIC REQUIRED? NO; REVIEW REQ? NO
[2016-12-08] MEDS: METOPROLOL TARTRATE 25 MG TAB PO SCH (20:56)
[2016-12-08] MEDS: GABAPENTIN 600 MG TAB PO SCH (20:56)
[2016-12-08] MEDS ORDERED: ASPIRIN 81 MG ECTAB PO SCH (21:00)
[2016-12-08] MEDS ORDERED: ISOSORBIDE MONONITRATE 30 MG TABCR PO SCH (21:00)
[2016-12-08] MEDS: DARUNAVIR ETHANOLATE 600 MG TAB PO SCH (21:00)
[2016-12-08] MEDS: INSULIN ASPART 100 UNITS/ML 3 ML PEN SC SCH (21:00)
[2016-12-08] MEDS: RITONAVIR 100 MG TAB PO SCH (21:00)
[2016-12-08 21:51] LABS: CKMB/CK RATIO 3.5 (0-3.0)
[2016-12-08] MEDS ORDERED: DARUNAVIR ETHANOLATE 600 MG TAB PO SCH (23:00)
[2016-12-08] MEDS ORDERED: RITONAVIR 100 MG TAB PO SCH (23:00)
[2016-12-09] VITALS (26 sets, daily range): BP systolic 90–164; BP diastolic 50–106; PULSE 74–106; TEMP 36.5–37.4; O2SAT 87–99
[2016-12-09] MEDS: EPTIFIBATIDE INJ 75 MG PREMIXED IV SCH ×2 (00:13→05:24)
[2016-12-09] MEDS ORDERED: NURSING VERBAL MED ORDER ONE (01:30)
[2016-12-09] MEDS ORDERED: ZOLPIDEM TARTRATE 5 MG TAB PO PRN (01:45)
[2016-12-09 04:59] LABS: BASO % 0.1 %; BASO ABS # 0.01 K/uL (0-0.2); COMPLETE YES; EOS % 5.3 %; HEMATOCRIT 34.3 % (42-52); IG% 0.4 %; LYMPH % 23.2 %; LYMPH ABS # 1.87 K/uL (1.2-3.4); MEAN CELL VOLUME 98.6 fL (80-100); MEAN CORPUSCULAR HEMOGLOBIN 33.3 pg (25-34); MEAN CORPUSCULAR HGB CONC 33.8 g/dl (32-36); MEAN PLATELET VOLUME 9.8 fL (7.4-10.4); MONO % 17.7 %; NEUT % 53.3 %; PLATELET COUNT 157 K/uL (130-400); RED BLOOD COUNT 3.48 M/uL (4.7-6.1); WHITE BLOOD COUNT 8.07 K/uL (4.8-10.8)
[2016-12-09 05:24] LABS: BUN/CREATININE RATIO 11.1 (10-20); CREATININE 0.81 mg/dl (0.60-1.40); POTASSIUM 4.1 mmol/L (3.5-5.1)
[2016-12-09 05:41] LABS: CKMB/CK RATIO 3.7 (0-3.0)
[2016-12-09] MEDS ORDERED: Integrelin infusion --> STOP ORDER ONE (06:00)
[2016-12-09] MEDS: INSULIN ASPART 100 UNITS/ML 3 ML PEN SC SCH ×4 (06:20→21:00)
[2016-12-09] MEDS: SODIUM CHLORIDE 0.9% 1000ML 1,000 ML IV SCH ×2 (06:27→12:45)
--- NOTE | 2016-12-09 08:46 | ECHOCARDIOGRAM REPORT ---
*NOTICE TO RECEIVING [employer] This information is strictly Confidential and protected under [place] law. [place] law prohibits you from making any further disclosure of this information unless further disclosure is expressly permitted by the written consent of the person to whom it pertains or is authorized by law. A general authorization for the release of medical or other information is not sufficient for this purpose. Hospital accepts no responsibility if the information is made available to any other person, INCLUDING THE PATIENT. Interpretation Summary * Name: CAL STINSON Study Date: 12/08/2016 02:35 PM BP: 119/73 mmHg * Patient Location: .ED HR: 95 * : 1955 (M/d/yyyy) Gender: Male Height: 71 in * Age: 61 yrs Ethnicity: [place] Weight: 180 lb * Ordering Physician: Quentin Benedict * Referring Physician: Self, Referred * Performed By: Dimitris Campos RCS * * Reason For Study: Acute Myocardial Infarction * BSA: 2.0 m2 * The study was technically adequate. * -- Conclusions -- * The study was technically adequate. * There is a large sized apical, septal, anteroseptal, and inferior wall motion abnormality with hypokinesis of the segments. * The anteroseptual and inferoseptal viveros are hypokinetic at the mid and apical levels. * The inferior wall motion abnormality extends from the basal segment to the apex. * Left ventricular systolic function is mildly reduced. * The LV Ejection Fraction = 45-50%. * The right ventricle is normal in size and function. * Aortic valve sclerosis mild, without significant aortic valvular stenosis. * Grade I diastolic dysfunction, (abnormal relaxation pattern). * There is no significant valvular heart disease. Procedure Details * A complete two-dimensional transthoracic echocardiogram was performed (2D, M-mode, Doppler and color flow Doppler). Left Ventricle * The left ventricle is normal in size. * There is normal left ventricular wall thickness. * Left ventricular systolic function is mildly reduced. * Ejection Fraction = 45-50%. * There is a large sized apical, septal, anteroseptal, and inferior wall motion abnormality with hypokinesis of the segments. The anteroseptual and inferoseptal viveros are hypokinetic at the mid and apical levels. The inferior wall motion abnormality extends from the basal portion to the apex. Right Ventricle * The right ventricle is normal in size and function. * The right ventricular systolic function is normal as assessed by tricuspid annular plane systolic excursion (TAPSE) (normal >1.5 cm). Atria * The left atrial size is normal. * Right atrial size is normal. * There is no evidence of atrial septal defect, but resolution does not allow assessment for a patent foramen ovale. Mitral Valve * The mitral valve is normal. * There is no mitral valve stenosis. * Significant mitral regurgitation is absent. Tricuspid Valve * The tricuspid valve is normal. * There is no tricuspid stenosis. * Significant tricuspid regurgitation is absent. * Doppler findings do not suggest pulmonary hypertension. Aortic Valve * The aortic valve is trileaflet. * Aortic valve sclerosis mild, without significant aortic valvular stenosis. * Aortic stenosis is absent. * There is no significant aortic regurgitation. Pulmonic Valve * The pulmonary valve is not well seen, but the Doppler examination is normal without significant regurgitation or stenosis. Great Vessels * The aortic root and proximal ascending aorta are normal sized. Pericardium/Pleural * There is no pericardial effusion. Great Vessels * Normal inferior vena cava diameter and respiratory variation suggests normal central venous pressure. Left Ventricular Diastolic Function * Grade I diastolic dysfunction, (abnormal relaxation pattern). MMode 2D Measurements and Calculations IVSd 1.2 cm LVIDd 4.2 cm LVIDs 1.8 cm LVPWd 1.2 cm IVS/LVPW 10 FS 57.1 % EDV(Teich) 77.9 ml ESV(Teich) 9.7 ml EF(Teich) 87.6 % EDV(cubed) 73.3 ml ESV(cubed) 5.8 ml EF(cubed) 92.1 % LV mass(C)d 182.5 grams LV mass(C)dI 90.5 grams/m\S\2 SV(Teich) 68.3 ml SI(Teich) 33.9 ml/m\S\2 SV(cubed) 67.5 ml SI(cubed) 33.5 ml/m\S\2 Ao root diam 2.8 cm Ao root area 6.1 cm\S\2 LVOT diam 2.1 cm LVOT area 3.5 cm\S\2 EDV(MOD-sp4) 77.6 ml ESV(MOD-sp4) 32.8 ml EF(MOD-sp4) 57.7 % EDV(MOD-sp2) 70.8 ml ESV(MOD-sp2) 19.6 ml EF(MOD-sp2) 72.4 % SV(MOD-sp4) 44.8 ml SI(MOD-sp4) 22.2 ml/m\S\2 SV(MOD-sp2) 51.3 ml SI(MOD-sp2) 25.4 ml/m\S\2 Doppler Measurements and Calculations MV E max malka 49.0 cm/sec MV A max malka 77.3 cm/sec MV E/A 0.63 MV dec time 0.14 sec Ao V2 max 134.8 cm/sec Ao max PG 7.3 mmHg Ao max PG (full) 2.7 mmHg JASON(V,A) 2.8 cm\S\2 JASON(V,D) 2.8 cm\S\2 LV V1 max PG 4.6 mmHg LV V1 max 107.2 cm/sec TR max malka 277.4 cm/sec
[2016-12-09] MEDS: CYANOCOBALAMIN 500 MCG TAB (VIT B-12) PO SCH (08:55)
[2016-12-09] MEDS: LISINOPRIL 2.5 MG TAB PO SCH (08:55)
[2016-12-09] MEDS: PANTOprazole SOD 40 MG TAB PO SCH (08:56)
[2016-12-09] MEDS: GABAPENTIN 600 MG TAB PO SCH ×3 (08:56→20:05)
[2016-12-09] MEDS: ATORVASTATIN 40 MG TAB PO SCH (08:56)
[2016-12-09] MEDS: METOPROLOL TARTRATE 25 MG TAB PO SCH ×2 (08:56→20:04)
[2016-12-09] MEDS: ISOSORBIDE MONONITRATE 30 MG TABCR PO SCH (08:56)
[2016-12-09] MEDS: ASPIRIN 81 MG ECTAB PO SCH (08:56)
[2016-12-09] MEDS: OXYBUTYNIN CHLORIDE 5 MG TABCR PO SCH (08:56)
[2016-12-09] MEDS: CLOPIDOGREL BISULFATE 75 MG TAB PO SCH (08:57)
[2016-12-09] MEDS: [UNRECOGNIZED DRUG - OTHER] PO SCH (08:57)
[2016-12-09] MEDS: VENLAFAXINE HCL XR 150 MG CAPXR PO SCH (08:57)
[2016-12-09] MEDS: RITONAVIR 100 MG TAB PO SCH ×2 (08:58→20:05)
[2016-12-09] MEDS: DARUNAVIR ETHANOLATE 600 MG TAB PO SCH ×2 (08:58→20:06)
[2016-12-09] MEDS ORDERED: NON-FORMULARY MEDICATION (Omeprazole (Prilosec) 20 MG) PO SCH (09:00)
--- NOTE | 2016-12-09 12:31 | Critical Care Progress Note ---
Critical Care Progress Note Date of Service Dec 09, 2016. Attending Dr. Randle Subjective asymptomatic over night, no chest pain or sob, no groin pain or induration, orally fed. Objective no events overnight, he is off integrilin. Assessment & Plan 1- NSTEMI, s/p stenting to the RCA. 2- HTN. 3- HIV. 4- DM. Plan: 1- continue post cath treatment. 2- hold metformin. 3- glucose control. 4- oral diet. 5- DVT prophylaxis. 6- ambulation if ok with cardiology. 7- disposition plan per cardiology and Dr. Sal, discussed in details with the staff. CCT 35 min. Consults & Procedures Consultants: Dr. Benedict Procedures: none Data Medications: Current Inpatient Medications Medications (Trade) Dose Ordered Sig/Margot Route Start Time Stop Time Status Last Admin Dose Admin Sodium Chloride 1,000 ml @ 125 mls/hr Q8H IV 12/08/16 12:45 01/07/17 12:44 12/09/16 06:27 125 MLS/HR Atropine Sulfate (Atropine Sulfate 0.1MG/Ml Inj) 0.5 mg ONE PRN IV 12/08/16 12:45 01/07/17 12:44 Ondansetron HCl (Zofran Inj) 4 mg Q6H PRN IV 12/08/16 12:45 01/07/17 12:44 Aspirin (Ecotrin Tab) 81 mg QAM PO 12/09/16 09:00 01/08/17 08:59 12/09/16 08:56 81 MG Clopidogrel Bisulfate (plAVix TAB) 75 mg QAM PO 12/09/16 09:00 01/08/17 08:59 12/09/16 08:57 75 MG Acetaminophen (Tylenol Tab) 650 mg Q4H PRN PO 12/08/16 12:45 01/07/17 12:44 Morphine Sulfate (MoRPHine SULFATE INJ) 1 mg Q5M PRN IV 12/08/16 12:45 Lorazepam 0.5 mg/ Syringe 0.25 ml @ 1 mls/min Q6H PRN IV 12/08/16 12:45 01/07/17 12:44 Nitroglycerin (Nitrostat Tab) 0.4 mg UD PRN SL 12/08/16 12:45 01/07/17 12:44 Al Hydrox/Mg Hydrox/Simethicone (Maalox Max Susp) 15 ml Q4H PRN PO 12/08/16 12:45 01/07/17 12:44 Magnesium Hydroxide (Milk Of Magnesia Susp) 30 ml Q12H PRN PO 12/08/16 12:45 01/07/17 12:44 Atorvastatin Calcium (Lipitor Tab) 80 mg QAM PO 12/09/16 09:00 01/08/17 08:59 12/09/16 08:56 80 MG Cyanocobalamin (Vitamin B-12 Tab) 1,000 mcg QAM PO 12/09/16 09:00 01/08/17 08:59 12/09/16 08:55 1,000 MCG Gabapentin (Neurontin Tab) 600 mg TID PO 12/08/16 21:00 01/07/17 20:59 12/09/16 08:56 600 MG Lisinopril (Zestril Tab) 2.5 mg QAM PO 12/09/16 09:00 01/08/17 08:59 12/09/16 08:55 2.5 MG Metoprolol Tartrate (Lopressor Tab) 25 mg BID PO 12/08/16 21:00 01/07/17 20:59 12/09/16 08:56 25 MG Oxybutynin Chloride (Ditropan-Xl Tab) 5 mg QAM PO 12/09/16 09:00 01/08/17 08:59 12/09/16 08:56 5 MG Venlafaxine HCl (effeXOR EXTENDED REL CAP) 150 mg QAM PO 12/09/16 09:00 01/08/17 08:59 12/09/16 08:57 150 MG Abacavir/ Lamivudine (Epzicom) 1 tab QAM PO 12/09/16 09:00 01/08/17 08:59 Non-Formulary Medication (Darunavir Ethanolate (Prezista)) 600 mg BID PO 12/08/16 21:00 01/07/17 20:59 UNV Ritonavir (Norvir) 100 BID PO 12/08/16 21:00 01/07/17 20:59 Isosorbide Mononitrate (Imdur Ext Rel Tab) 90 mg DAILY PO 12/09/16 09:00 01/07/17 20:59 12/09/16 08:56 90 MG Pantoprazole Sodium (Protonix Tab) 40 mg QAM PO 12/09/16 09:00 01/08/17 08:59 12/09/16 08:56 40 MG Insulin Aspart (novoLOG ASPART) SLIDING SCALE If C... ACHS SC 12/08/16 16:00 01/07/17 15:59 12/09/16 11:55 1 UNITS Glucose (Glucose 40% Gel) 15-30 GRAMS 15 GRAMS... UD PRN PO 12/08/16 14:30 01/07/17 14:29 Glucose (Glucose Chew Tab) 4-8 Tablets 4 Tabl... UD PRN PO 12/08/16 14:30 01/07/17 14:29 Dextrose (Dextrose 50% 50ML Syringe) 25-50ML OF 50% DW IV FOR... UD PRN IV 12/08/16 14:30 01/07/17 14:29 Glucagon (Glucagon Inj) 1 mg UD PRN SQ 12/08/16 14:30 01/07/17 14:29 Zolpidem Tartrate (Ambien Tab) 5 mg HSZ PRN PO 12/09/16 01:45 01/08/17 01:44 Vital Signs: Date Time Temp Pulse Resp B/P (MAP) Pulse Ox O2 Delivery O2 Flow Rate FiO2 12/09/16 10:00 106 24 106/78 (87) 96 Room Air 12/09/16 08:00 99 Room Air 12/09/16 08:00 36.5 101 20 105/51 (69) 99 Room Air 12/09/16 06:01 79 14 125/66 (85) 99 Room Air 12/09/16 04:31 82 21 109/70 (83) 94 Room Air 12/09/16 04:01 36.7 82 18 117/76 (90) 99 Room Air 12/09/16 04:00 Room Air 12/09/16 03:31 83 18 117/70 (86) 95 Room Air 12/09/16 03:01 84 15 92/67 (75) 95 Room Air 12/09/16 02:31 90 17 118/67 (84) 90 Room Air 12/09/16 02:01 93 16 95/51 (66) 96 Room Air 12/09/16 01:31 93 16 115/72 (86) 97 Room Air 12/09/16 01:01 90 14 108/69 (82) 97 Room Air 12/09/16 00:32 93 13 108/81 (90) 87 Room Air 12/09/16 00:01 37.4 88 15 108/62 (77) 96 Room Air 12/09/16 00:01 Room Air 12/08/16 23:31 87 20 103/57 (72) 96 Room Air 12/08/16 23:01 83 16 100/60 (73) 98 Room Air 12/08/16 22:31 91 14 120/78 (92) 94 Room Air 12/08/16 22:26 85 19 108/69 (82) 95 Room Air 12/08/16 21:12 100 15 107/77 (87) 95 Room Air 12/08/16 20:00 Room Air 12/08/16 19:36 36.8 91 23 115/71 (86) 97 Room Air 12/08/16 16:00 97 22 137/64 (88) 95 Room Air 12/08/16 16:00 99 12/08/16 14:01 100 21 119/73 (88) 12/08/16 13:46 92 24 112/67 (82) 12/08/16 13:31 36.6 99 18 109/65 (80) 100 Room Air 12/08/16 12:55 82 18 126/76 (93) 94 Room Air 12/08/16 12:40 88 18 121/78 (92) 93 Room Air 12/08/16 12:35 91 18 127/80 (96) 93 Room Air 12/08/16 12:30 90 18 130/86 (101) 93 Room Air 12/08/16 12:25 91 18 136/84 (101) 99 Mask 4 Laboratory Results: Last 24 Hours Test 12/08/16 13:53 12/08/16 15:15 12/08/16 21:01 12/08/16 21:10 White Blood Count 11.17 K/uL Red Blood Count 3.67 M/uL Hemoglobin 12.6 g/dL Hematocrit 35.5 % Mean Corpuscular Volume 96.7 fL Mean Corpuscular Hemoglobin 34.3 pg Mean Corpuscular Hemoglobin Concent 35.5 g/dl Platelet Count 167 K/uL Mean Platelet Volume 9.6 fL Neutrophils (%) (Auto) 66.2 % Lymphocytes (%) (Auto) 13.9 % Monocytes (%) (Auto) 14.6 % Eosinophils (%) (Auto) 4.9 % Basophils (%) (Auto) 0.1 % Neutrophils # (Auto) 7.40 K/uL Lymphocytes # (Auto) 1.55 K/uL Monocytes # (Auto) 1.63 K/uL Eosinophils # (Auto) 0.55 K/uL Basophils # (Auto) 0.01 K/uL RDW Standard Deviation 46.8 fL RDW Coefficient of Variation 13.3 % Immature Granulocyte % (Auto) 0.3 % Immature Granulocyte # (Auto) 0.03 K/uL Sodium Level 138 mmol/L Potassium Level 4.4 mmol/L Chloride Level 105 mmol/L Carbon Dioxide Level 25 mmol/L Anion Gap 8.0 mmol/L Blood Urea Nitrogen 12 mg/dl Creatinine 0.81 mg/dl Est Creatinine Clear Calc Drug Dose 105.5 ml/min Estimated GFR () 109.6 Estimated GFR (Non- 94.6 BUN/Creatinine Ratio 14.6 Random Glucose 147 mg/dl Estimated Average Glucose 140 mg/dl Hemoglobin A1c 6.5 % Calcium Level 8.5 mg/dl Magnesium Level 1.4 mg/dl Total Creatine Kinase 348 U/L 413 U/L Creatine Kinase MB 10.3 ng/ml 14.4 ng/ml Creatine Kinase MB Ratio 3.0 3.5 Troponin I 8.760 ng/ml 8.470 ng/ml Triglycerides Level 271 mg/dl Cholesterol Level 104 mg/dl HDL Cholesterol 28 mg/dl LDL Cholesterol Direct 58 mg/dl LDL Cholesterol, Calculated 22 mg/dl VLDL Cholesterol, Calculated 54 mg/dl Cholesterol/HDL Ratio 3.7 Urine Color YELLOW Urine Appearance CLEAR Urine pH 5.0 Urine Specific [place] > 1.045 Urine Protein NEG Urine Glucose (UA) NEG Urine Ketones NEG Urine Occult Blood NEG Urine Nitrite NEG Urine Bilirubin NEG Urine Urobilinogen NEG Urine Leukocyte Esterase NEG Bedside Glucose 155 mg/dl Test 12/09/16 00:08 12/09/16 04:19 12/09/16 06:10 12/09/16 11:47 Bedside Glucose 176 mg/dl 170 mg/dl 195 mg/dl White Blood Count 8.07 K/uL Red Blood Count 3.48 M/uL Hemoglobin 11.6 g/dL Hematocrit 34.3 % Mean Corpuscular Volume 98.6 fL Mean Corpuscular Hemoglobin 33.3 pg Mean Corpuscular Hemoglobin Concent 33.8 g/dl Platelet Count 157 K/uL Mean Platelet Volume 9.8 fL Neutrophils (%) (Auto) 53.3 % Lymphocytes (%) (Auto) 23.2 % Monocytes (%) (Auto) 17.7 % Eosinophils (%) (Auto) 5.3 % Basophils (%) (Auto) 0.1 % Neutrophils # (Auto) 4.30 K/uL Lymphocytes # (Auto) 1.87 K/uL Monocytes # (Auto) 1.43 K/uL Eosinophils # (Auto) 0.43 K/uL Basophils # (Auto) 0.01 K/uL RDW Standard Deviation 48.2 fL RDW Coefficient of Variation 13.4 % Immature Granulocyte % (Auto) 0.4 % Immature Granulocyte # (Auto) 0.03 K/uL Sodium Level 138 mmol/L Potassium Level 4.1 mmol/L Chloride Level 105 mmol/L Carbon Dioxide Level 28 mmol/L Anion Gap 5.0 mmol/L Blood Urea Nitrogen 9 mg/dl Creatinine 0.81 mg/dl Est Creatinine Clear Calc Drug Dose 105.5 ml/min Estimated GFR () 109.6 Estimated GFR (Non- 94.6 BUN/Creatinine Ratio 11.1 Random Glucose 158 mg/dl Calcium Level 8.0 mg/dl Total Creatine Kinase 397 U/L Creatine Kinase MB 14.6 ng/ml Creatine Kinase MB Ratio 3.7 Troponin I 8.700 ng/ml
--- NOTE | 2016-12-09 15:38 | Cardiology Follow-Up ---
Subjective General Date of Service: Dec 09, 2016. Chief Complaint: follow up chest pressure, PA Pt evaluation today including: conversation w/ patient, physical exam History of Present Illness The patient is a 61 year old male seen in cardiology follow up with initial consultation having been performed by Dr Silverio yesterday. Pt feels well. He state the presenting symptom of chest pressure has completely resolved. Telemetry reveals stable SR. EKG post cardiac cath and PCI peformed yesterday reveals SR with subtle ST elevation over Q waves in the inferior leads. Echo was reviewed and revealed inferior hypokinesis, septal hypokinesis, LVEF 45 -50%. Allergies Coded Allergies: Penicillins (Verified Allergy, Mild, RASH, 12/08/16) Social History Smoking Status: Former Smoker (quit in 1994) Hx Tobacco Use In Past Year?: No (quit 1994) Hx Alcohol Use - Type And Amou: Yes (OCC. SOCIAL DRINK) Hx Substance Use - Type And Am: No Problem List Medical Problems: (1) Anxiety Disorder, Unspecified Status: Chronic (2) Cervicalgia Status: Chronic (3) Elevated troponin Status: Acute (4) Gastro-Esophageal Reflux Disease Without Esophagitis Status: Chronic (5) Human Immunodeficiency Virus [Hiv] Disease Status: Chronic (6) Hyperlipidemia, Unspecified Status: Chronic (7) Hypertension Status: Chronic (8) Lumbar stenosis Status: Chronic (9) Old Myocardial Infarction Status: Chronic (10) Polyneuropathy, Unspecified Status: Chronic (11) Substernal precordial chest pain Status: Acute (12) Type 2 Diabetes Mellitus Without Complications Status: Chronic Physical Exam Vital Signs Last Vital Signs Documentation Date Time Temp Pulse Resp B/P (MAP) Pulse Ox O2 Delivery O2 Flow Rate FiO2 12/09/16 14:00 85 22 90/50 (63) 97 Room Air 12/09/16 08:00 36.5 12/08/16 12:25 4 Physical Exam ENMT: normal ENT inspection Neck: supple Lungs: Auscultation: no wheezing, no rales/crackles, no rhonchi Cardiovascular: Heart Auscultation: RRR, no murmurs, no rubs, no gallops Abdomen: Inspection & Palpation: soft, non-distended Extremities: no cyanosis, no edema Neurologic: Gait & Station: pertinent finding (no focal deficits ) Assessment and Plan Assessment and Plan Impression: 1. s/p acute inferior wall PA, for which patient had overlapping bare metal stents to the RPDA 2. Residual 95% ostial LAD stenosis 3. HTN 4. Dyslipidemia 5. HIV Plan: Continue ASA, clopidogrel, metoprolol, lisinopril, Imdur, atorvastatin. Increase activity as tolerated. Based in EKG findings on presentation and cath findings, it was felt the RCA/ PDA lesion was the culprit stenosis, and post intervention to this territory the patient's symptoms have resolved. The patient has a complex proximal LAD stenosis. There is anteroseptal and inferoseptal hypokinesis on echo in addition to inferior wall hypokinesis. Options for treatment of the LAD include medical Rx, attempt at complex PCI, or single vessel CABG. Patient describes having had an PA 7-8 years ago. He state he had a cardiac cath at [facility] in [place], [place]. He remembers having a blockage that was treated medically. I am going to attempt to obtain the cath report in order to compare historical findings with current findings. Keep in ICU for today. Repeat EKG and troponin in am. Cyril Dooley DO Laboratory Results Last 24 Hours Test 12/08/16 21:01 12/08/16 21:10 12/09/16 00:08 12/09/16 04:19 Bedside Glucose 155 mg/dl 176 mg/dl Total Creatine Kinase 413 U/L 397 U/L Creatine Kinase MB 14.4 ng/ml 14.6 ng/ml Creatine Kinase MB Ratio 3.5 3.7 Troponin I 8.470 ng/ml 8.700 ng/ml White Blood Count 8.07 K/uL Red Blood Count 3.48 M/uL Hemoglobin 11.6 g/dL Hematocrit 34.3 % Mean Corpuscular Volume 98.6 fL Mean Corpuscular Hemoglobin 33.3 pg Mean Corpuscular Hemoglobin Concent 33.8 g/dl Platelet Count 157 K/uL Mean Platelet Volume 9.8 fL Neutrophils (%) (Auto) 53.3 % Lymphocytes (%) (Auto) 23.2 % Monocytes (%) (Auto) 17.7 % Eosinophils (%) (Auto) 5.3 % Basophils (%) (Auto) 0.1 % Neutrophils # (Auto) 4.30 K/uL Lymphocytes # (Auto) 1.87 K/uL Monocytes # (Auto) 1.43 K/uL Eosinophils # (Auto) 0.43 K/uL Basophils # (Auto) 0.01 K/uL RDW Standard Deviation 48.2 fL RDW Coefficient of Variation 13.4 % Immature Granulocyte % (Auto) 0.4 % Immature Granulocyte # (Auto) 0.03 K/uL Sodium Level 138 mmol/L Potassium Level 4.1 mmol/L Chloride Level 105 mmol/L Carbon Dioxide Level 28 mmol/L Anion Gap 5.0 mmol/L Blood Urea Nitrogen 9 mg/dl Creatinine 0.81 mg/dl Est Creatinine Clear Calc Drug Dose 105.5 ml/min Estimated GFR () 109.6 Estimated GFR (Non- 94.6 BUN/Creatinine Ratio 11.1 Random Glucose 158 mg/dl Calcium Level 8.0 mg/dl Test 12/09/16 06:10 12/09/16 11:47 Bedside Glucose 170 mg/dl 195 mg/dl
--- NOTE | 2016-12-09 16:45 | Progress Note ---
Subjective Date of Service: Dec 09, 2016. Subjective Pt evaluation today including: conversation w/ patient, conversation w/ family (brother, others), physical exam, chart review, lab review, review of studies ( echo), conversation w/ safety and health consultant (cardiology, ), review of inpatient medication list Pain: no chest pain or abd pain PO Intake: normal Voiding: no voiding problems tele stable overnight denies any new complaints denies significant groin pain on right no orthopnea, dyspnea, or PND Problem List Medical Problems: (1) Anxiety Disorder, Unspecified Status: Chronic (2) Cervicalgia Status: Chronic (3) Elevated troponin Status: Acute (4) Gastro-Esophageal Reflux Disease Without Esophagitis Status: Chronic (5) Human Immunodeficiency Virus [Hiv] Disease Status: Chronic (6) Hyperlipidemia, Unspecified Status: Chronic (7) Hypertension Status: Chronic (8) Lumbar stenosis Status: Chronic (9) Old Myocardial Infarction Status: Chronic (10) Polyneuropathy, Unspecified Status: Chronic (11) Substernal precordial chest pain Status: Acute (12) Type 2 Diabetes Mellitus Without Complications Status: Chronic Review of Systems Constitutional: No fever Respiratory: No cough, No shortness of breath Abdomen: No pain, No nausea, No vomiting Objective Vital Signs Date Time Temp Pulse Resp B/P (MAP) Pulse Ox O2 Delivery O2 Flow Rate FiO2 12/09/16 16:00 87 20 98/60 (73) 97 Room Air 12/09/16 16:00 Room Air 12/09/16 14:00 85 22 90/50 (63) 97 Room Air 12/09/16 12:00 97 24 97/58 (71) 97 Room Air 12/09/16 12:00 Room Air 12/09/16 10:00 106 24 106/78 (87) 96 Room Air 12/09/16 08:00 99 Room Air 12/09/16 08:00 36.5 101 20 105/51 (69) 99 Room Air 12/09/16 06:01 79 14 125/66 (85) 99 Room Air 12/09/16 04:31 82 21 109/70 (83) 94 Room Air 12/09/16 04:01 36.7 82 18 117/76 (90) 99 Room Air 12/09/16 04:00 Room Air 12/09/16 03:31 83 18 117/70 (86) 95 Room Air 12/09/16 03:01 84 15 92/67 (75) 95 Room Air 12/09/16 02:31 90 17 118/67 (84) 90 Room Air 12/09/16 02:01 93 16 95/51 (66) 96 Room Air 12/09/16 01:31 93 16 115/72 (86) 97 Room Air 12/09/16 01:01 90 14 108/69 (82) 97 Room Air 12/09/16 00:32 93 13 108/81 (90) 87 Room Air 12/09/16 00:01 37.4 88 15 108/62 (77) 96 Room Air 12/09/16 00:01 Room Air 12/08/16 23:31 87 20 103/57 (72) 96 Room Air 12/08/16 23:01 83 16 100/60 (73) 98 Room Air 12/08/16 22:31 91 14 120/78 (92) 94 Room Air 12/08/16 22:26 85 19 108/69 (82) 95 Room Air 12/08/16 21:12 100 15 107/77 (87) 95 Room Air 12/08/16 20:00 Room Air 12/08/16 19:36 36.8 91 23 115/71 (86) 97 Room Air Physical Exam General Appearance: no apparent distress, + pertinent finding (mildly dysmorphic ) ENT: + pertinent finding (cleft palate) Neck: no JVD Respiratory/Chest: lungs clear, no respiratory distress, no accessory muscle use Cardiovascular: regular rate, rhythm, no gallop, no murmur Abdomen: normal bowel sounds, non tender, soft, no organomegaly Extremities: no pedal edema Neurologic/Psychiatric: alert, oriented x 3 Skin: + pertinent finding (right groin femoral artery puncture site clean, no hematoma ) Laboratory Results Last 24 Hours Test 12/08/16 21:01 12/08/16 21:10 12/09/16 00:08 12/09/16 04:19 Bedside Glucose 155 mg/dl 176 mg/dl Total Creatine Kinase 413 U/L 397 U/L Creatine Kinase MB 14.4 ng/ml 14.6 ng/ml Creatine Kinase MB Ratio 3.5 3.7 Troponin I 8.470 ng/ml 8.700 ng/ml White Blood Count 8.07 K/uL Red Blood Count 3.48 M/uL Hemoglobin 11.6 g/dL Hematocrit 34.3 % Mean Corpuscular Volume 98.6 fL Mean Corpuscular Hemoglobin 33.3 pg Mean Corpuscular Hemoglobin Concent 33.8 g/dl Platelet Count 157 K/uL Mean Platelet Volume 9.8 fL Neutrophils (%) (Auto) 53.3 % Lymphocytes (%) (Auto) 23.2 % Monocytes (%) (Auto) 17.7 % Eosinophils (%) (Auto) 5.3 % Basophils (%) (Auto) 0.1 % Neutrophils # (Auto) 4.30 K/uL Lymphocytes # (Auto) 1.87 K/uL Monocytes # (Auto) 1.43 K/uL Eosinophils # (Auto) 0.43 K/uL Basophils # (Auto) 0.01 K/uL RDW Standard Deviation 48.2 fL RDW Coefficient of Variation 13.4 % Immature Granulocyte % (Auto) 0.4 % Immature Granulocyte # (Auto) 0.03 K/uL Sodium Level 138 mmol/L Potassium Level 4.1 mmol/L Chloride Level 105 mmol/L Carbon Dioxide Level 28 mmol/L Anion Gap 5.0 mmol/L Blood Urea Nitrogen 9 mg/dl Creatinine 0.81 mg/dl Est Creatinine Clear Calc Drug Dose 105.5 ml/min Estimated GFR () 109.6 Estimated GFR (Non- 94.6 BUN/Creatinine Ratio 11.1 Random Glucose 158 mg/dl Calcium Level 8.0 mg/dl Test 12/09/16 06:10 12/09/16 11:47 12/09/16 16:05 Bedside Glucose 170 mg/dl 195 mg/dl 183 mg/dl Assessment and Plan 61yo male: 1. NSTEMI 2nd to RCA occlusion - s/p cath yesterday with 2 RCA stents & 1 PDA stent. LAD stenosis also found with some collateralization. Cont asa, plavix, BB, statin, JOE. Also on imdur. Appreciate cardiology consultation. ?timing of intervention of LAD lesion? 2. acute systolic/diastolic CHF - compensated. Depressed EF 2nd to #1. Hopefully will improve with time and also with intervention of LAD lesion. 3. T2DM - add lantus; holding metformin. 4. neuropathy - 2nd to #3? HIV? continue gabapentin. 5. HIV+ status - continue triple therapy. No infectious issues at this time. 6. DVT proph - add heparin TID. 7. FEN - cont fluids for now; consider d/c later tonight. Lytes stable. BMP in am. 8. can likely transfer from ICU status to tele status later today await further recs from cardiology Continued [facility] stay due to: multiple IV medications needed
[2016-12-09] MEDS: HEPARIN SOD 5000 UNIT/0.5 ML CARP SQ SCH (21:03)
[2016-12-09] MEDS: INSULIN GLARGINE SOLOSTAR 100 UNITS/ML 3 ML PEN SC SCH (21:04)
[2016-12-10] VITALS (20 sets, daily range): BP systolic 83–129; BP diastolic 52–77; PULSE 74–84; TEMP 36.5–37.2; O2SAT 94–98
[2016-12-10 05:16] LABS: BASO % 0.1 %; BASO ABS # 0.01 K/uL (0-0.2); COMPLETE YES; EOS % 5.6 %; HEMATOCRIT 30.6 % (42-52); IG% 0.9 %; LYMPH % 22.7 %; LYMPH ABS # 1.57 K/uL (1.2-3.4); MEAN CELL VOLUME 98.4 fL (80-100); MEAN CORPUSCULAR HEMOGLOBIN 34.7 pg (25-34); MEAN CORPUSCULAR HGB CONC 35.3 g/dl (32-36); MEAN PLATELET VOLUME 9.2 fL (7.4-10.4); MONO % 16.2 %; NEUT % 54.5 %; PLATELET COUNT 139 K/uL (130-400); RED BLOOD COUNT 3.11 M/uL (4.7-6.1); WHITE BLOOD COUNT 6.93 K/uL (4.8-10.8)
[2016-12-10 05:45] LABS: BUN/CREATININE RATIO 11.6 (10-20); CREATININE 0.76 mg/dl (0.60-1.40); POTASSIUM 3.8 mmol/L (3.5-5.1)
[2016-12-10] MEDS: HEPARIN SOD 5000 UNIT/0.5 ML CARP SQ SCH (06:33)
[2016-12-10] MEDS: INSULIN ASPART 100 UNITS/ML 3 ML PEN SC SCH ×4 (06:45→20:35)
[2016-12-10] MEDS: CLOPIDOGREL BISULFATE 75 MG TAB PO SCH (08:07)
[2016-12-10] MEDS: ATORVASTATIN 40 MG TAB PO SCH (08:07)
[2016-12-10] MEDS: ASPIRIN 81 MG ECTAB PO SCH (08:07)
[2016-12-10] MEDS: CYANOCOBALAMIN 500 MCG TAB (VIT B-12) PO SCH (08:07)
[2016-12-10] MEDS: VENLAFAXINE HCL XR 150 MG CAPXR PO SCH (08:08)
[2016-12-10] MEDS: OXYBUTYNIN CHLORIDE 5 MG TABCR PO SCH (08:08)
[2016-12-10] MEDS: ISOSORBIDE MONONITRATE 30 MG TABCR PO SCH (08:08)
[2016-12-10] MEDS: METOPROLOL TARTRATE 25 MG TAB PO SCH ×2 (08:08→20:32)
[2016-12-10] MEDS: PANTOprazole SOD 40 MG TAB PO SCH (08:08)
[2016-12-10] MEDS: GABAPENTIN 600 MG TAB PO SCH ×3 (08:09→20:32)
[2016-12-10] MEDS: LISINOPRIL 2.5 MG TAB PO SCH (08:09)
[2016-12-10] MEDS: [UNRECOGNIZED DRUG - OTHER] PO SCH (08:39)
[2016-12-10] MEDS: RITONAVIR 100 MG TAB PO SCH ×2 (08:40→20:32)
[2016-12-10] MEDS: DARUNAVIR ETHANOLATE 600 MG TAB PO SCH ×2 (08:40→20:32)
[2016-12-10] MEDS ORDERED: HEPARIN IV BOLUS 6,000 UNIT in SYRINGE 0 ML IV ONE (11:30)
--- NOTE | 2016-12-10 11:32 | Cardiology Follow-Up ---
Subjective General Date of Service: Dec 10, 2016. Chief Complaint: follow up chest pressure, CT Pt evaluation today including: conversation w/ patient, physical exam History of Present Illness The patient is a 61 year old male seen in follow up. Patient felt well yesterday and overnight. This am at 1030 am he complained of 6/10 left sided chest pressure. EKG revealed no acute ST changes, stable compared to tracing earlier this am at 653 with inferior Q waves and T wave inversions in leads III and aVF with resolution of the presenting inferior ST elevation noted on hospital day 1. He received SL nitro x 1 and discomfort has resolved, but SBP declined to the 80 mm Hg range. Allergies Coded Allergies: Penicillins (Verified Allergy, Mild, RASH, 12/08/16) Social History Smoking Status: Former Smoker (quit in 1994) Hx Tobacco Use In Past Year?: No (quit 1994) Hx Alcohol Use - Type And Amou: Yes (OCC. SOCIAL DRINK) Hx Substance Use - Type And Am: No Problem List Medical Problems: (1) Anxiety Disorder, Unspecified Status: Chronic (2) Cervicalgia Status: Chronic (3) Elevated troponin Status: Acute (4) Gastro-Esophageal Reflux Disease Without Esophagitis Status: Chronic (5) Human Immunodeficiency Virus [Hiv] Disease Status: Chronic (6) Hyperlipidemia, Unspecified Status: Chronic (7) Hypertension Status: Chronic (8) Lumbar stenosis Status: Chronic (9) Old Myocardial Infarction Status: Chronic (10) Polyneuropathy, Unspecified Status: Chronic (11) Substernal precordial chest pain Status: Acute (12) Type 2 Diabetes Mellitus Without Complications Status: Chronic Physical Exam Vital Signs Last Vital Signs Documentation Date Time Temp Pulse Resp B/P (MAP) Pulse Ox O2 Delivery O2 Flow Rate FiO2 12/10/16 10:50 84 14 83/53 (63) 96 Nasal Cannula 2.0 12/10/16 08:00 36.5 Physical Exam ENMT: normal ENT inspection Neck: supple Lungs: Auscultation: no wheezing, no rales/crackles, no rhonchi Cardiovascular: Heart Auscultation: RRR, no murmurs, no rubs, no gallops Abdomen: Inspection & Palpation: soft, non-distended Extremities: no cyanosis, no edema Neurologic: Gait & Station: pertinent finding (no focal deficits ) Assessment and Plan Assessment and Plan Impression: 61 year old male with recurrent resting chest pressure this am, resolved with SL nitro 1. s/p acute inferior wall CT, for which patient had overlapping bare metal stents to the RPDA 2. Residual 95% ostial LAD stenosis 3. HTN 4. Dyslipidemia 5. HIV Plan: Continue ASA, clopidogrel, metoprolol, lisinopril, Imdur, atorvastatin. Add UF heparin infusion. Trop was trending down this am, plan for repeat CPK , MB, trop now and tomorrow am. Repeat EKG in am 12/11. The patient has a residual complex proximal LAD stenosis. There is anteroseptal and inferoseptal hypokinesis on echo in addition to inferior wall hypokinesis. Options for treatment of the LAD include medical Rx, attempt at complex PCI, or single vessel CABG. Given recurrent discomfort, will start UF heparin and observe pt in the ICU. Patient describes having had an CT 7-8 years ago. He state he had a cardiac cath at [facility] in [place], [place]. He remembers having a blockage that was treated medically. We attempted to obtain the report but the med records department in [place] is closed until Sunday. I called the answering service for the [facility] cardiology practice to see if I could connect with the commercial lines assistant pond tender to obtain the report on an emergency basis, but since I did not have the name of the patient' s past commercial lines assistant, they could not offer assistance. Cyril Dooley, DO Laboratory Results Last 24 Hours Test 12/09/16 11:47 12/09/16 16:05 12/09/16 16:45 12/09/16 21:00 Bedside Glucose 195 mg/dl 183 mg/dl 161 mg/dl Troponin I 5.380 ng/ml Test 12/10/16 05:06 12/10/16 06:21 12/10/16 11:12 White Blood Count 6.93 K/uL Red Blood Count 3.11 M/uL Hemoglobin 10.8 g/dL Hematocrit 30.6 % Mean Corpuscular Volume 98.4 fL Mean Corpuscular Hemoglobin 34.7 pg Mean Corpuscular Hemoglobin Concent 35.3 g/dl Platelet Count 139 K/uL Mean Platelet Volume 9.2 fL Neutrophils (%) (Auto) 54.5 % Lymphocytes (%) (Auto) 22.7 % Monocytes (%) (Auto) 16.2 % Eosinophils (%) (Auto) 5.6 % Basophils (%) (Auto) 0.1 % Neutrophils # (Auto) 3.78 K/uL Lymphocytes # (Auto) 1.57 K/uL Monocytes # (Auto) 1.12 K/uL Eosinophils # (Auto) 0.39 K/uL Basophils # (Auto) 0.01 K/uL RDW Standard Deviation 46.9 fL RDW Coefficient of Variation 13.1 % Immature Granulocyte % (Auto) 0.9 % Immature Granulocyte # (Auto) 0.06 K/uL Sodium Level 138 mmol/L Potassium Level 3.8 mmol/L Chloride Level 104 mmol/L Carbon Dioxide Level 28 mmol/L Anion Gap 6.0 mmol/L Blood Urea Nitrogen 9 mg/dl Creatinine 0.76 mg/dl Est Creatinine Clear Calc Drug Dose 112.4 ml/min Estimated GFR () 112.5 Estimated GFR (Non- 97.1 BUN/Creatinine Ratio 11.6 Random Glucose 142 mg/dl Calcium Level 8.0 mg/dl Troponin I 4.030 ng/ml Bedside Glucose 153 mg/dl
[2016-12-10] MEDS: HEPARIN 25,000 UNIT/500ML D5W 500 ML IV PRN (12:02)
[2016-12-10 12:20] LABS: PROTHROMBIN TIME (PATIENT) 10.7 SECONDS (9.0-12.0)
[2016-12-10 13:03] LABS: CKMB/CK RATIO 2.3 (0-3.0)
--- NOTE | 2016-12-10 14:39 | Progress Note ---
Subjective Date of Service: Dec 10, 2016. Subjective Pt evaluation today including: conversation w/ patient, physical exam, chart review, lab review, review of studies (EKG), conversation w/ business continuity consultant ( cardiology), review of inpatient medication list Pain: had chest pain at 1030 this am; resolved w/ SL nitro x 1 PO Intake: normal Voiding: no voiding problems tele overnight normal had no chest pain since his cath until this AM again resolved with 1 SL nitro no orthopnea, no PND, no dyspnea Problem List Medical Problems: (1) Anxiety Disorder, Unspecified Status: Chronic (2) Cervicalgia Status: Chronic (3) Elevated troponin Status: Acute (4) Gastro-Esophageal Reflux Disease Without Esophagitis Status: Chronic (5) Human Immunodeficiency Virus [Hiv] Disease Status: Chronic (6) Hyperlipidemia, Unspecified Status: Chronic (7) Hypertension Status: Chronic (8) Lumbar stenosis Status: Chronic (9) Old Myocardial Infarction Status: Chronic (10) Polyneuropathy, Unspecified Status: Chronic (11) Substernal precordial chest pain Status: Acute (12) Type 2 Diabetes Mellitus Without Complications Status: Chronic Review of Systems Constitutional: No fever Cardiac: + see HPI, + chest pain, No edema Abdomen: No pain, No nausea, No vomiting Objective Vital Signs Date Time Temp Pulse Resp B/P (MAP) Pulse Ox O2 Delivery O2 Flow Rate FiO2 12/10/16 14:00 79 19 90/52 (65) 96 Nasal Cannula 2.0 12/10/16 12:00 Room Air 12/10/16 11:00 75 14 97/65 (76) 96 Nasal Cannula 2.0 12/10/16 10:50 84 14 83/53 (63) 96 Nasal Cannula 2.0 12/10/16 10:45 76 14 104/67 (79) 98 Nasal Cannula 2.0 12/10/16 10:35 74 14 108/60 (76) 96 Nasal Cannula 2.0 12/10/16 08:00 Room Air 12/10/16 08:00 36.5 76 13 125/76 (92) 95 Room Air 12/10/16 06:01 80 22 106/60 (75) 98 Nasal Cannula 2.0 12/10/16 05:01 77 20 129/77 (94) 98 Nasal Cannula 2.0 12/10/16 04:01 37.0 76 9 109/67 (81) 97 Nasal Cannula 2.0 12/10/16 04:00 95 Nasal Cannula 2.0 12/10/16 03:01 76 12 91/55 (67) 97 Nasal Cannula 2.0 12/10/16 02:01 78 18 120/75 (90) 96 Nasal Cannula 2.0 12/10/16 01:01 79 13 99/62 (74) 96 Nasal Cannula 2.0 12/10/16 00:01 37.2 76 20 116/65 (82) 96 Nasal Cannula 2.0 12/10/16 00:00 95 Nasal Cannula 2.0 12/09/16 23:01 77 13 156/104 (121) 95 Nasal Cannula 2.0 12/09/16 22:31 74 12 158/106 (123) 97 Nasal Cannula 2.0 12/09/16 21:31 80 15 127/68 (87) 93 Nasal Cannula 2.0 12/09/16 21:01 82 14 135/86 (102) Room Air 12/09/16 20:31 86 18 159/76 (103) 95 Room Air 12/09/16 20:01 37.2 87 20 164/94 (117) 93 Room Air 12/09/16 20:00 95 Room Air 12/09/16 19:31 86 18 137/77 (97) 95 Room Air 12/09/16 19:01 87 14 128/82 (97) 92 Room Air 12/09/16 18:00 92 14 113/58 (76) 96 Room Air 12/09/16 16:00 87 20 98/60 (73) 97 Room Air 12/09/16 16:00 Room Air Physical Exam General Appearance: no apparent distress ENT: + pertinent finding (cleft palate; mild dysmorphic features ) Neck: no JVD Respiratory/Chest: lungs clear, no respiratory distress, no accessory muscle use Cardiovascular: regular rate, rhythm, no gallop, no murmur Abdomen: normal bowel sounds, non tender, soft, no organomegaly Extremities: no pedal edema Neurologic/Psychiatric: alert, oriented x 3 Laboratory Results Last 24 Hours Test 12/09/16 16:05 12/09/16 16:45 12/09/16 21:00 12/10/16 05:06 Bedside Glucose 183 mg/dl 161 mg/dl Troponin I 5.380 ng/ml 4.030 ng/ml White Blood Count 6.93 K/uL Red Blood Count 3.11 M/uL Hemoglobin 10.8 g/dL Hematocrit 30.6 % Mean Corpuscular Volume 98.4 fL Mean Corpuscular Hemoglobin 34.7 pg Mean Corpuscular Hemoglobin Concent 35.3 g/dl Platelet Count 139 K/uL Mean Platelet Volume 9.2 fL Neutrophils (%) (Auto) 54.5 % Lymphocytes (%) (Auto) 22.7 % Monocytes (%) (Auto) 16.2 % Eosinophils (%) (Auto) 5.6 % Basophils (%) (Auto) 0.1 % Neutrophils # (Auto) 3.78 K/uL Lymphocytes # (Auto) 1.57 K/uL Monocytes # (Auto) 1.12 K/uL Eosinophils # (Auto) 0.39 K/uL Basophils # (Auto) 0.01 K/uL RDW Standard Deviation 46.9 fL RDW Coefficient of Variation 13.1 % Immature Granulocyte % (Auto) 0.9 % Immature Granulocyte # (Auto) 0.06 K/uL Sodium Level 138 mmol/L Potassium Level 3.8 mmol/L Chloride Level 104 mmol/L Carbon Dioxide Level 28 mmol/L Anion Gap 6.0 mmol/L Blood Urea Nitrogen 9 mg/dl Creatinine 0.76 mg/dl Est Creatinine Clear Calc Drug Dose 112.4 ml/min Estimated GFR () 112.5 Estimated GFR (Non- 97.1 BUN/Creatinine Ratio 11.6 Random Glucose 142 mg/dl Calcium Level 8.0 mg/dl Test 12/10/16 06:21 12/10/16 11:13 12/10/16 11:36 Bedside Glucose 153 mg/dl 159 mg/dl Prothrombin Time 10.7 SECONDS Prothromb Time International Ratio 1.0 Activated Partial Thromboplast Time 26.8 SECONDS Partial Thromboplastin Ratio 1.0 Total Creatine Kinase 214 U/L Creatine Kinase MB 4.9 ng/ml Creatine Kinase MB Ratio 2.3 Troponin I 3.100 ng/ml Assessment and Plan 61yo male: 1. STEMI 2nd to RCA occlusion - s/p cath with 2 RCA stents & 1 PDA stent. LAD stenosis also found with some collateralization. Now with recurrent chest pain this AM. Fortunately resoled with nitro. Troponin continues to trend down. Spoke with Dr. Dooley - plan - place back on heparin infusion. Cont asa, plavix, BB, statin, JOE, imdur. Attempting to get records from [facility] in [place], [place], to determine best course of action on LAD lesion (question of whether this is old vs new, whether to pursue medical management vs intervention, etc). 2. acute systolic/diastolic CHF - compensated. Depressed EF 2nd to #1. Hopefully will improve with time and also with intervention of LAD lesion. 3. T2DM - improved. Cont lantus and novolog correction; holding metformin. 4. neuropathy - 2nd to #3? HIV? continue gabapentin. 5. HIV+ status - continue triple therapy. No infectious issues at this time. 6. DVT proph - systemic heparin. 7. FEN - fluids stopped; lytes stable; AHA/DM diet. defer ICU vs tele status to cardiology/critical care Continued [facility] stay due to: multiple IV medications needed Discharge planning: uncertain
[2016-12-10 18:19] LABS: PARTIAL THROMBOPLASTIN RATIO 2.3
[2016-12-10] MEDS: INSULIN GLARGINE SOLOSTAR 100 UNITS/ML 3 ML PEN SC SCH (20:34)
[2016-12-11] VITALS (10 sets, daily range): BP systolic 93–121; BP diastolic 48–77; PULSE 71–85; TEMP 36.3–36.8; O2SAT 92–97
[2016-12-11] MEDS: HEPARIN 25,000 UNIT/500ML D5W 500 ML IV PRN (03:13)
[2016-12-11 05:00] LABS: BASO % 0.3 %; BASO ABS # 0.02 K/uL (0-0.2); COMPLETE YES; EOS % 6.2 %; HEMATOCRIT 31.1 % (42-52); LYMPH ABS # 1.84 K/uL (1.2-3.4); MEAN CELL VOLUME 97.8 fL (80-100); MEAN CORPUSCULAR HGB CONC 34.7 g/dl (32-36); MEAN PLATELET VOLUME 9.6 fL (7.4-10.4); MONO % 15.1 %; NEUT % 51.4 %; PLATELET COUNT 167 K/uL (130-400); RED BLOOD COUNT 3.18 M/uL (4.7-6.1); WHITE BLOOD COUNT 7.07 K/uL (4.8-10.8)
[2016-12-11 05:16] LABS: PARTIAL THROMBOPLASTIN RATIO 1.9
[2016-12-11 05:24] LABS: BUN/CREATININE RATIO 13.3 (10-20); CALCIUM 8.4 mg/dl (8.5-10.1); CREATININE 0.71 mg/dl (0.60-1.40); POTASSIUM 3.9 mmol/L (3.5-5.1)
[2016-12-11 05:53] LABS: CKMB/CK RATIO 2.3 (0-3.0)
[2016-12-11] MEDS: INSULIN ASPART 100 UNITS/ML 3 ML PEN SC SCH ×4 (06:45→20:34)
[2016-12-11] MEDS: POLYETHYLENE (MIRALAX) 17 GM PACK PO SCH (09:18)
[2016-12-11] MEDS: SENNA 8.6 MG TAB PO SCH (09:18)
[2016-12-11] MEDS: METOPROLOL TARTRATE 25 MG TAB PO SCH ×2 (09:18→20:39)
[2016-12-11] MEDS: OXYBUTYNIN CHLORIDE 5 MG TABCR PO SCH (09:18)
[2016-12-11] MEDS: VENLAFAXINE HCL XR 150 MG CAPXR PO SCH (09:18)
[2016-12-11] MEDS: PANTOprazole SOD 40 MG TAB PO SCH (09:18)
[2016-12-11] MEDS: GABAPENTIN 600 MG TAB PO SCH ×3 (09:20→20:39)
[2016-12-11] MEDS: CLOPIDOGREL BISULFATE 75 MG TAB PO SCH (09:20)
[2016-12-11] MEDS: ATORVASTATIN 40 MG TAB PO SCH (09:20)
[2016-12-11] MEDS: CYANOCOBALAMIN 500 MCG TAB (VIT B-12) PO SCH (09:20)
[2016-12-11] MEDS: ASPIRIN 81 MG ECTAB PO SCH (09:20)
[2016-12-11] MEDS: ISOSORBIDE MONONITRATE 30 MG TABCR PO SCH (09:20)
[2016-12-11] MEDS: LISINOPRIL 2.5 MG TAB PO SCH (09:21)
[2016-12-11] MEDS: [UNRECOGNIZED DRUG - OTHER] PO SCH (09:23)
[2016-12-11] MEDS: DARUNAVIR ETHANOLATE 600 MG TAB PO SCH ×2 (09:23→20:51)
[2016-12-11] MEDS: RITONAVIR 100 MG TAB PO SCH ×2 (09:23→20:51)
--- NOTE | 2016-12-11 10:10 | Cardiology Follow-Up ---
Subjective General Date of Service: Dec 11, 2016. Chief Complaint: follow up chest pressure, VA Pt evaluation today including: conversation w/ patient, physical exam History of Present Illness The patient is a 61 year old male seen in cardiology follow-up. The patient notes he feels well. The chest discomfort that he had yesterday at 10:30 AM has not occurred again. He was on heparin yesterday and overnight last night and his hemoglobin remains a little low but stable in the 10 g/dL range. EKG performed this morning 12/11/16 reveals stable findings with inferior Q waves and T-wave inversions but the inferior ST segment elevation noted on presentation is completely resolved. No other ST changes are noted in the precordial leads. Serial cardiac enzymes were drawn yesterday and overnight and trended down think this is reflecting his initial injury on presentation and I do not think the pattern is consistent with a recurrent injury. Allergies Coded Allergies: Penicillins (Verified Allergy, Mild, RASH, 12/08/16) Social History Smoking Status: Former Smoker (quit in 1994) Hx Tobacco Use In Past Year?: No (quit 1994) Hx Alcohol Use - Type And Amou: Yes (OCC. SOCIAL DRINK) Hx Substance Use - Type And Am: No Problem List Medical Problems: (1) Anxiety Disorder, Unspecified Status: Chronic (2) Cervicalgia Status: Chronic (3) Elevated troponin Status: Acute (4) Gastro-Esophageal Reflux Disease Without Esophagitis Status: Chronic (5) Human Immunodeficiency Virus [Hiv] Disease Status: Chronic (6) Hyperlipidemia, Unspecified Status: Chronic (7) Hypertension Status: Chronic (8) Lumbar stenosis Status: Chronic (9) Old Myocardial Infarction Status: Chronic (10) Polyneuropathy, Unspecified Status: Chronic (11) Substernal precordial chest pain Status: Acute (12) Type 2 Diabetes Mellitus Without Complications Status: Chronic Physical Exam Vital Signs Last Vital Signs Documentation Date Time Temp Pulse Resp B/P (MAP) Pulse Ox O2 Delivery O2 Flow Rate FiO2 12/11/16 06:00 74 19 121/77 (92) 93 Room Air 12/11/16 04:00 36.3 12/10/16 14:00 2.0 Physical Exam ENMT: normal ENT inspection Neck: supple Lungs: Auscultation: no wheezing, no rales/crackles, no rhonchi Cardiovascular: Heart Auscultation: RRR, no murmurs, no rubs, no gallops Abdomen: Inspection & Palpation: soft, non-distended Extremities: no cyanosis, no edema Neurologic: Gait & Station: pertinent finding (no focal deficits ) Assessment and Plan Assessment and Plan Impression: 61 year old male 1. s/p acute inferior wall VA, for which patient had overlapping bare metal stents to the RPDA 2. Residual 95% ostial LAD stenosis 3. HTN 4. Dyslipidemia 5. HIV Plan: Patient had recurrent resting chest discomfort the a.m. of 12/10/16. It resolved after the dose of sublingual nitroglycerin. His EKG findings and cardiac enzymes and follow-up have been negative. At this point will discontinue unfractionated heparin, increase the patient's activity as tolerated, and transfer him to the telemetry floor. Continue ASA, clopidogrel, metoprolol, lisinopril, Imdur, atorvastatin. The patient has a residual complex proximal LAD stenosis. There is anteroseptal and inferoseptal hypokinesis on echo in addition to inferior wall hypokinesis. Options for treatment of the LAD include medical Rx, attempt at complex PCI, or single vessel CABG. Patient describes having had an VA 7-8 years ago. He state he had a cardiac cath at [facility] in [place], [place]. He remembers having a blockage that was treated medically. Medical records is attempting to obtain his reports from [facility] so we can compare his prior cardiac catheterization results to what is found on the present study. I plan to [place] cardiac [place] [facility] [place] and review them with [place]al cardiology there to determine if complex PCI is technically feasible. Pt to remain in hospital. Transfer from SICU to telemetry. Cyril Dooley DO Laboratory Results Last 24 Hours Test 12/10/16 11:13 12/10/16 11:36 12/10/16 16:37 12/10/16 17:34 Bedside Glucose 159 mg/dl 140 mg/dl Prothrombin Time 10.7 SECONDS Prothromb Time International Ratio 1.0 Activated Partial Thromboplast Time 26.8 SECONDS 58.5 SECONDS Partial Thromboplastin Ratio 1.0 2.3 Total Creatine Kinase 214 U/L Creatine Kinase MB 4.9 ng/ml Creatine Kinase MB Ratio 2.3 Troponin I 3.100 ng/ml Test 12/10/16 20:21 12/11/16 04:43 Bedside Glucose 129 mg/dl White Blood Count 7.07 K/uL Red Blood Count 3.18 M/uL Hemoglobin 10.8 g/dL Hematocrit 31.1 % Mean Corpuscular Volume 97.8 fL Mean Corpuscular Hemoglobin 34.0 pg Mean Corpuscular Hemoglobin Concent 34.7 g/dl Platelet Count 167 K/uL Mean Platelet Volume 9.6 fL Neutrophils (%) (Auto) 51.4 % Lymphocytes (%) (Auto) 26.0 % Monocytes (%) (Auto) 15.1 % Eosinophils (%) (Auto) 6.2 % Basophils (%) (Auto) 0.3 % Neutrophils # (Auto) 3.63 K/uL Lymphocytes # (Auto) 1.84 K/uL Monocytes # (Auto) 1.07 K/uL Eosinophils # (Auto) 0.44 K/uL Basophils # (Auto) 0.02 K/uL RDW Standard Deviation 46.9 fL RDW Coefficient of Variation 13.0 % Immature Granulocyte % (Auto) 1.0 % Immature Granulocyte # (Auto) 0.07 K/uL Activated Partial Thromboplast Time 48.3 SECONDS Partial Thromboplastin Ratio 1.9 Sodium Level 139 mmol/L Potassium Level 3.9 mmol/L Chloride Level 105 mmol/L Carbon Dioxide Level 29 mmol/L Anion Gap 5.0 mmol/L Blood Urea Nitrogen 9 mg/dl Creatinine 0.71 mg/dl Est Creatinine Clear Calc Drug Dose 120.4 ml/min Estimated GFR () 115.7 Estimated GFR (Non- 99.9 BUN/Creatinine Ratio 13.3 Random Glucose 135 mg/dl Calcium Level 8.4 mg/dl Total Creatine Kinase 164 U/L Creatine Kinase MB 3.8 ng/ml Creatine Kinase MB Ratio 2.3 Troponin I 2.640 ng/ml
--- NOTE | 2016-12-11 12:48 | Progress Note ---
Subjective Date of Service: Dec 11, 2016. Subjective Pt evaluation today including: conversation w/ patient, physical exam, chart review, lab review, review of inpatient medication list Pain: denies any recurrent chest pain PO Intake: normal Voiding: no voiding problems tele stable overnight he feels good denies any new complaints asks when he might be released home Problem List Medical Problems: (1) Anxiety Disorder, Unspecified Status: Chronic (2) Cervicalgia Status: Chronic (3) Elevated troponin Status: Acute (4) Gastro-Esophageal Reflux Disease Without Esophagitis Status: Chronic (5) Human Immunodeficiency Virus [Hiv] Disease Status: Chronic (6) Hyperlipidemia, Unspecified Status: Chronic (7) Hypertension Status: Chronic (8) Lumbar stenosis Status: Chronic (9) Old Myocardial Infarction Status: Chronic (10) Polyneuropathy, Unspecified Status: Chronic (11) Substernal precordial chest pain Status: Acute (12) Type 2 Diabetes Mellitus Without Complications Status: Chronic Review of Systems Constitutional: No fever, No chills Respiratory: No shortness of breath, No dyspnea on exertion Cardiac: No chest pain, No orthopnea, No PND, No edema Abdomen: No pain, No nausea, No vomiting Male : No dysuria Objective Vital Signs Date Time Temp Pulse Resp B/P (MAP) Pulse Ox O2 Delivery O2 Flow Rate FiO2 12/11/16 10:00 81 19 108/56 (73) 95 Room Air 12/11/16 08:00 Room Air 12/11/16 08:00 36.8 71 20 111/69 (83) 95 Room Air 12/11/16 06:00 74 19 121/77 (92) 93 Room Air 12/11/16 04:00 36.3 74 16 113/65 (81) 93 Room Air 12/11/16 04:00 93 Room Air 12/11/16 02:01 83 17 97/53 (68) Room Air 12/11/16 00:01 76 17 93/48 (63) 92 Room Air 12/10/16 23:59 94 Room Air 12/10/16 22:00 75 21 100/68 (79) 94 Room Air 12/10/16 20:00 95 Room Air 12/10/16 20:00 37.2 81 16 100/61 (74) 95 Room Air 12/10/16 18:00 82 14 111/67 (82) 96 Room Air 12/10/16 16:00 Room Air 12/10/16 16:00 36.8 80 20 112/69 (83) 98 Room Air 12/10/16 14:00 79 19 90/52 (65) 96 Nasal Cannula 2.0 Physical Exam General Appearance: no apparent distress ENT: + pertinent finding (cleft palate) Neck: no JVD Respiratory/Chest: lungs clear, no respiratory distress, no accessory muscle use Cardiovascular: regular rate, rhythm, no gallop, no murmur Abdomen: normal bowel sounds, non tender, soft, no organomegaly Extremities: no pedal edema Neurologic/Psychiatric: alert, oriented x 3 Laboratory Results Last 24 Hours Test 12/10/16 16:37 12/10/16 17:34 12/10/16 20:21 12/11/16 04:43 Bedside Glucose 140 mg/dl 129 mg/dl Activated Partial Thromboplast Time 58.5 SECONDS 48.3 SECONDS Partial Thromboplastin Ratio 2.3 1.9 White Blood Count 7.07 K/uL Red Blood Count 3.18 M/uL Hemoglobin 10.8 g/dL Hematocrit 31.1 % Mean Corpuscular Volume 97.8 fL Mean Corpuscular Hemoglobin 34.0 pg Mean Corpuscular Hemoglobin Concent 34.7 g/dl Platelet Count 167 K/uL Mean Platelet Volume 9.6 fL Neutrophils (%) (Auto) 51.4 % Lymphocytes (%) (Auto) 26.0 % Monocytes (%) (Auto) 15.1 % Eosinophils (%) (Auto) 6.2 % Basophils (%) (Auto) 0.3 % Neutrophils # (Auto) 3.63 K/uL Lymphocytes # (Auto) 1.84 K/uL Monocytes # (Auto) 1.07 K/uL Eosinophils # (Auto) 0.44 K/uL Basophils # (Auto) 0.02 K/uL RDW Standard Deviation 46.9 fL RDW Coefficient of Variation 13.0 % Immature Granulocyte % (Auto) 1.0 % Immature Granulocyte # (Auto) 0.07 K/uL Sodium Level 139 mmol/L Potassium Level 3.9 mmol/L Chloride Level 105 mmol/L Carbon Dioxide Level 29 mmol/L Anion Gap 5.0 mmol/L Blood Urea Nitrogen 9 mg/dl Creatinine 0.71 mg/dl Est Creatinine Clear Calc Drug Dose 120.4 ml/min Estimated GFR () 115.7 Estimated GFR (Non- 99.9 BUN/Creatinine Ratio 13.3 Random Glucose 135 mg/dl Calcium Level 8.4 mg/dl Total Creatine Kinase 164 U/L Creatine Kinase MB 3.8 ng/ml Creatine Kinase MB Ratio 2.3 Troponin I 2.640 ng/ml Test 12/11/16 11:27 Bedside Glucose 129 mg/dl Assessment and Plan 61yo male: 1. STEMI 2nd to RCA occlusion - s/p cath with 2 RCA stents & 1 PDA stent. LAD stenosis also found with some collateralization. Had recurrent chest pain AM of 12/10/16. Fortunately resoled with nitro. Despite the pain his troponins continued to trend down and his EKG was unchanged. Heparin drip restarted at that time. He remains on asa, plavix, BB, statin, JOE, imdur. Attempting to get records from [facility] in [place], [place], to determine best course of action on LAD lesion (question of whether this is old vs new, whether to pursue medical management vs intervention, etc). Defer management to cardiology. 2. acute systolic/diastolic CHF - compensated. Depressed EF 2nd to #1. Hopefully will improve with time and also with intervention of LAD lesion. 3. T2DM - controlled. Cont lantus and novolog correction; holding metformin. 4. neuropathy - 2nd to #3? HIV? continue gabapentin. controlled. 5. HIV+ status - continue triple therapy. No infectious issues at this time. 6. DVT proph - systemic heparin. 7. FEN - lytes stable; AHA/DM diet. Saline lock IV. can likely d/c ICU status and move to tele today Continued [facility] stay due to: multiple IV medications needed Discharge planning: uncertain
--- NOTE | 2016-12-11 18:01 | Critical Care Progress Note ---
Critical Care Progress Note Date of Service Dec 11, 2016. ICU Day ICU Day Number: [address] Zambrano Subjective Patient is 61-year-old male admitted to the ICU for continued monitoring for possible reocclusion of stent. The patient had an episode of chest discomfort yesterday. It was felt best for him to be monitored in the ICU overnight. He remains on heparin drip. The patient denies any pains or chest pain. He denies any return of chest pain overnight. He feels much better at this time rating his discomfort a 0/10. Objective VITAL SIGNS - Vital signs and nursing notes were reviewed. GENERAL - 61-year-old male appearing his stated age who is in no acute distress. Communicates well with provider and answers questions appropriately. LUNGS - Chest wall symmetric without accessory muscle use, intercostals retractions, or central cyanosis. Normal vesicular breath sounds CTA B/L. No wheezes, rales, or rhonchi appreciated. CARDIAC - RRR with S1/S2. No murmur, rubs, or gallops appreciated. No reproducible tenderness to palpation appreciated over the anterior chest wall. ABDOMEN - Abdominal contour obese and without pulsations or visible masses. BS normoactive all four quadrants. No tenderness, palpable masses, hepatosplenomegaly, or ascites noted. NEUROLOGIC - Cranial nerves II through XII grossly intact. PSYCH - A&Ox3 and cooperates fully with examiner. Pt is very pleasant and interacts well with examiner. Current SOFA Score SOFA Score Response (Comments) Value Platelets (x10) > 150 0 Bilirubin (mg/dL) < 1.2 0 Breanna Coma Score 15 0 Level of Hypotension No Hypotension 0 Creatinine (mg/dL) < 1.2 0 Total 0 Assessment & Plan (1) CAD (coronary artery disease), [place] coronary artery (2) ACS (acute coronary syndrome) (3) S/P right coronary artery (RCA) stent placement Patient is a 61-year-old male who was admitted to the ICU for ACS with stenting. His symptoms improved throughout the night. He has had no return of chest pain. His troponins continue to trend downwards. Cardiology reevaluate the patient this morning. It is felt the patient's symptoms are not cardiac related. He'll be dilated to telemetry status officially today. Thank you for allowing us to purchase pain in the care of this patient. Please refer to my attending physician's dictation for any further recommendations. Consults & Procedures Consultants: Dr. Jak Dooley Procedures: none Data Medications: Current Inpatient Medications Medications (Trade) Dose Ordered Sig/Margot Route Start Time Stop Time Status Last Admin Dose Admin Ondansetron HCl (Zofran Inj) 4 mg Q6H PRN IV 12/08/16 12:45 01/07/17 12:44 Aspirin (Ecotrin Tab) 81 mg QAM PO 12/09/16 09:00 01/08/17 08:59 12/11/16 09:20 81 MG Clopidogrel Bisulfate (plAVix TAB) 75 mg QAM PO 12/09/16 09:00 01/08/17 08:59 12/11/16 09:20 75 MG Acetaminophen (Tylenol Tab) 650 mg Q4H PRN PO 12/08/16 12:45 01/07/17 12:44 12/09/16 20:03 650 MG Lorazepam 0.5 mg/ Syringe 0.25 ml @ 1 mls/min Q6H PRN IV 12/08/16 12:45 01/07/17 12:44 Nitroglycerin (Nitrostat Tab) 0.4 mg UD PRN SL 12/08/16 12:45 01/07/17 12:44 Al Hydrox/Mg Hydrox/Simethicone (Maalox Max Susp) 15 ml Q4H PRN PO 12/08/16 12:45 01/07/17 12:44 Magnesium Hydroxide (Milk Of Magnesia Susp) 30 ml Q12H PRN PO 12/08/16 12:45 01/07/17 12:44 Atorvastatin Calcium (Lipitor Tab) 80 mg QAM PO 12/09/16 09:00 01/08/17 08:59 12/11/16 09:20 80 MG Cyanocobalamin (Vitamin B-12 Tab) 1,000 mcg QAM PO 12/09/16 09:00 01/08/17 08:59 12/11/16 09:20 1,000 MCG Gabapentin (Neurontin Tab) 600 mg TID PO 12/08/16 21:00 01/07/17 20:59 12/11/16 14:41 600 MG Lisinopril (Zestril Tab) 2.5 mg QAM PO 12/09/16 09:00 01/08/17 08:59 12/11/16 09:21 2.5 MG Metoprolol Tartrate (Lopressor Tab) 25 mg BID PO 12/08/16 21:00 01/07/17 20:59 12/11/16 09:18 25 MG Oxybutynin Chloride (Ditropan-Xl Tab) 5 mg QAM PO 12/09/16 09:00 01/08/17 08:59 12/11/16 09:18 5 MG Venlafaxine HCl (effeXOR EXTENDED REL CAP) 150 mg QAM PO 12/09/16 09:00 01/08/17 08:59 12/11/16 09:18 150 MG Abacavir/ Lamivudine (Epzicom) 1 tab QAM PO 12/09/16 09:00 01/08/17 08:59 12/11/16 09:23 1 TAB Non-Formulary Medication (Darunavir Ethanolate (Prezista)) 600 mg BID PO 12/08/16 21:00 01/07/17 20:59 UNV Ritonavir (Norvir) 100 BID PO 12/08/16 21:00 01/07/17 20:59 12/11/16 09:23 100 Isosorbide Mononitrate (Imdur Ext Rel Tab) 90 mg DAILY PO 12/09/16 09:00 01/07/17 20:59 12/11/16 09:20 90 MG Pantoprazole Sodium (Protonix Tab) 40 mg QAM PO 12/09/16 09:00 01/08/17 08:59 12/11/16 09:18 40 MG Insulin Aspart (novoLOG ASPART) SLIDING SCALE If C... ACHS SC 12/08/16 16:00 01/07/17 15:59 12/09/16 16:07 1 UNITS Glucose (Glucose 40% Gel) 15-30 GRAMS 15 GRAMS... UD PRN PO 12/08/16 14:30 01/07/17 14:29 Glucose (Glucose Chew Tab) 4-8 Tablets 4 Tabl... UD PRN PO 12/08/16 14:30 01/07/17 14:29 Dextrose (Dextrose 50% 50ML Syringe) 25-50ML OF 50% DW IV FOR... UD PRN IV 12/08/16 14:30 01/07/17 14:29 Glucagon (Glucagon Inj) 1 mg UD PRN SQ 12/08/16 14:30 01/07/17 14:29 Zolpidem Tartrate (Ambien Tab) 5 mg HSZ PRN PO 12/09/16 01:45 01/08/17 01:44 Insulin Glargine (Lantus Solostar Pen) 10 units HS SC 12/09/16 21:00 01/08/17 20:59 12/10/16 20:34 10 UNITS Polyethylene (Miralax Powder Packet) 17 gm DAILY PO 12/11/16 09:00 01/10/17 08:59 12/11/16 09:18 17 GM Senna (Senokot Tab) 17.2 mg QAM PO 12/11/16 09:00 01/10/17 08:59 12/11/16 09:18 17.2 MG Enoxaparin Sodium (Lovenox Inj) 40 mg QAM SQ 12/12/16 09:00 01/11/17 08:59 I & O: 24-Hour Column 12/12/16 08:00 Intake Total 620 ml Output Total 500 ml Balance 120 ml Vital Signs: Date Time Temp Pulse Resp B/P (MAP) Pulse Ox O2 Delivery O2 Flow Rate FiO2 12/11/16 16:00 97 Nasal Cannula 12/11/16 16:00 36.7 85 24 Room Air 12/11/16 12:00 Room Air 12/11/16 12:00 36.8 79 13 108/70 (83) 97 Room Air 12/11/16 10:00 81 19 108/56 (73) 95 Room Air 12/11/16 08:00 Room Air 12/11/16 08:00 36.8 71 20 111/69 (83) 95 Room Air 12/11/16 06:00 74 19 121/77 (92) 93 Room Air 12/11/16 04:00 36.3 74 16 113/65 (81) 93 Room Air 12/11/16 04:00 93 Room Air 12/11/16 02:01 83 17 97/53 (68) Room Air 12/11/16 00:01 76 17 93/48 (63) 92 Room Air 12/10/16 23:59 94 Room Air 12/10/16 22:00 75 21 100/68 (79) 94 Room Air 12/10/16 20:00 95 Room Air 12/10/16 20:00 37.2 81 16 100/61 (74) 95 Room Air 12/10/16 18:00 82 14 111/67 (82) 96 Room Air Laboratory Results: Last 24 Hours Test 12/10/16 20:21 12/11/16 04:43 12/11/16 11:27 12/11/16 16:37 Bedside Glucose 129 mg/dl 129 mg/dl 126 mg/dl White Blood Count 7.07 K/uL Red Blood Count 3.18 M/uL Hemoglobin 10.8 g/dL Hematocrit 31.1 % Mean Corpuscular Volume 97.8 fL Mean Corpuscular Hemoglobin 34.0 pg Mean Corpuscular Hemoglobin Concent 34.7 g/dl Platelet Count 167 K/uL Mean Platelet Volume 9.6 fL Neutrophils (%) (Auto) 51.4 % Lymphocytes (%) (Auto) 26.0 % Monocytes (%) (Auto) 15.1 % Eosinophils (%) (Auto) 6.2 % Basophils (%) (Auto) 0.3 % Neutrophils # (Auto) 3.63 K/uL Lymphocytes # (Auto) 1.84 K/uL Monocytes # (Auto) 1.07 K/uL Eosinophils # (Auto) 0.44 K/uL Basophils # (Auto) 0.02 K/uL RDW Standard Deviation 46.9 fL RDW Coefficient of Variation 13.0 % Immature Granulocyte % (Auto) 1.0 % Immature Granulocyte # (Auto) 0.07 K/uL Activated Partial Thromboplast Time 48.3 SECONDS Partial Thromboplastin Ratio 1.9 Sodium Level 139 mmol/L Potassium Level 3.9 mmol/L Chloride Level 105 mmol/L Carbon Dioxide Level 29 mmol/L Anion Gap 5.0 mmol/L Blood Urea Nitrogen 9 mg/dl Creatinine 0.71 mg/dl Est Creatinine Clear Calc Drug Dose 120.4 ml/min Estimated GFR () 115.7 Estimated GFR (Non- 99.9 BUN/Creatinine Ratio 13.3 Random Glucose 135 mg/dl Calcium Level 8.4 mg/dl Total Creatine Kinase 164 U/L Creatine Kinase MB 3.8 ng/ml Creatine Kinase MB Ratio 2.3 Troponin I 2.640 ng/ml Problem Qualifiers (1) CAD (coronary artery disease), [place] coronary artery: [place] vs. transplanted heart: [place] heart Associated angina: with unspecified angina Qualified Codes: I25.119 - Atherosclerotic heart disease of [place] coronary artery with unspecified angina pectoris
[2016-12-11] MEDS: INSULIN GLARGINE SOLOSTAR 100 UNITS/ML 3 ML PEN SC SCH (20:39)
[2016-12-12 04:00] VITALS: BP 100/59; PULSE 65; TEMP 36.6; O2SAT 95
[2016-12-12 05:22] LABS: MEAN CELL VOLUME 98.5 fL (80-100); MEAN CORPUSCULAR HEMOGLOBIN 32.9 pg (25-34); MEAN CORPUSCULAR HGB CONC 33.4 g/dl (32-36); MEAN PLATELET VOLUME 9.4 fL (7.4-10.4); PLATELET COUNT 194 K/uL (130-400); RED BLOOD COUNT 3.25 M/uL (4.7-6.1); WHITE BLOOD COUNT 5.57 K/uL (4.8-10.8)
[2016-12-12 06:39] VITALS: BP 100/59; PULSE 65; TEMP 36.6; O2SAT 95
[2016-12-12 06:40] VITALS: BP 119/76; PULSE 71; TEMP 36.6; O2SAT 95
[2016-12-12] MEDS: INSULIN ASPART 100 UNITS/ML 3 ML PEN SC SCH ×2 (07:00→11:00)
[2016-12-12 07:21] VITALS: BP 116/69; PULSE 68; TEMP 36.7; O2SAT 95
[2016-12-12] MEDS: ASPIRIN 81 MG ECTAB PO SCH (08:44)
[2016-12-12] MEDS: ATORVASTATIN 40 MG TAB PO SCH (08:44)
[2016-12-12] MEDS: CLOPIDOGREL BISULFATE 75 MG TAB PO SCH (08:44)
[2016-12-12] MEDS: SENNA 8.6 MG TAB PO SCH (08:45)
[2016-12-12] MEDS: OXYBUTYNIN CHLORIDE 5 MG TABCR PO SCH (08:45)
[2016-12-12] MEDS: PANTOprazole SOD 40 MG TAB PO SCH (08:45)
[2016-12-12] MEDS: VENLAFAXINE HCL XR 150 MG CAPXR PO SCH (08:45)
[2016-12-12] MEDS: ISOSORBIDE MONONITRATE 30 MG TABCR PO SCH (08:45)
[2016-12-12] MEDS: METOPROLOL TARTRATE 25 MG TAB PO SCH (08:49)
[2016-12-12] MEDS: GABAPENTIN 600 MG TAB PO SCH ×2 (08:50→14:22)
[2016-12-12] MEDS: LISINOPRIL 2.5 MG TAB PO SCH (08:50)
[2016-12-12] MEDS: CYANOCOBALAMIN 500 MCG TAB (VIT B-12) PO SCH (08:50)
[2016-12-12 08:51] LABS: BASO % 0.4 %; BASO ABS # 0.02 K/uL (0-0.2); COMPLETE YES; EOS % 6.8 %; HEMATOCRIT 32.3 % (42-52); IG% 1.4 %; LYMPH % 23.5 %; MEAN CELL VOLUME 98.2 fL (80-100); MEAN CORPUSCULAR HEMOGLOBIN 34.7 pg (25-34); MEAN CORPUSCULAR HGB CONC 35.3 g/dl (32-36); MEAN PLATELET VOLUME 9.3 fL (7.4-10.4); MONO % 12.5 %; NEUT % 55.4 %; PLATELET COUNT 195 K/uL (130-400); RED BLOOD COUNT 3.29 M/uL (4.7-6.1); WHITE BLOOD COUNT 5.11 K/uL (4.8-10.8)
[2016-12-12] MEDS: POLYETHYLENE (MIRALAX) 17 GM PACK PO SCH (08:51)
[2016-12-12] MEDS: [UNRECOGNIZED DRUG - OTHER] PO SCH (08:52)
[2016-12-12] MEDS: DARUNAVIR ETHANOLATE 600 MG TAB PO SCH (08:52)
[2016-12-12] MEDS: RITONAVIR 100 MG TAB PO SCH (08:52)
[2016-12-12] MEDS ORDERED: ENOXAPARIN 40 MG/0.4 ML SYR SQ SCH (09:00)
[2016-12-12 09:10] LABS: CREATININE 0.88 mg/dl (0.60-1.40); MAGNESIUM 2.1 mg/dl (1.8-2.4); POTASSIUM 4.1 mmol/L (3.5-5.1)
--- NOTE | 2016-12-12 09:57 | Cardiology Follow-Up ---
Subjective General Date of Service: Dec 12, 2016. Chief Complaint: follow up chest pressure, HI Pt evaluation today including: conversation w/ patient, physical exam History of Present Illness The patient is a 61 year old male seen in follow up. Pt feels well. HR and BP are stable and at goal. Telemetry reveals stable SR , without arrhythmia. Allergies Coded Allergies: Penicillins (Verified Allergy, Mild, RASH, 12/08/16) Social History Smoking Status: Former Smoker (quit in 1994) Hx Tobacco Use In Past Year?: No (quit 1994) Hx Alcohol Use - Type And Amou: Yes (OCC. SOCIAL DRINK) Hx Substance Use - Type And Am: No Problem List Medical Problems: (1) ACS (acute coronary syndrome) Status: Acute (2) Anxiety Disorder, Unspecified Status: Chronic (3) CAD (coronary artery disease), [place] coronary artery Status: Chronic (4) Cervicalgia Status: Chronic (5) Elevated troponin Status: Acute (6) Gastro-Esophageal Reflux Disease Without Esophagitis Status: Chronic (7) Human Immunodeficiency Virus [Hiv] Disease Status: Chronic (8) Hyperlipidemia, Unspecified Status: Chronic (9) Hypertension Status: Chronic (10) Lumbar stenosis Status: Chronic (11) Old Myocardial Infarction Status: Chronic (12) Polyneuropathy, Unspecified Status: Chronic (13) Substernal precordial chest pain Status: Acute (14) Type 2 Diabetes Mellitus Without Complications Status: Chronic Surgical Problems: (1) S/P right coronary artery (RCA) stent placement Status: Acute Physical Exam Vital Signs Last Vital Signs Documentation Date Time Temp Pulse Resp B/P (MAP) Pulse Ox O2 Delivery O2 Flow Rate FiO2 12/12/16 07:21 36.7 68 20 116/69 (85) 95 12/12/16 06:40 Room Air 12/10/16 14:00 2.0 Physical Exam ENMT: normal ENT inspection Neck: supple Lungs: Auscultation: no wheezing, no rales/crackles, no rhonchi Cardiovascular: Heart Auscultation: RRR, no murmurs, no rubs, no gallops Abdomen: Inspection & Palpation: soft, non-distended Extremities: no cyanosis, no edema Neurologic: Gait & Station: pertinent finding (no focal deficits ) Assessment and Plan Assessment and Plan Impression: 61 year old male 1. s/p acute inferior wall HI, for which patient had overlapping bare metal stents to the RPDA Mild LV systolic dysfunction LVEF 45-50%, no clinical HF 2. Residual 95% ostial LAD stenosis, calcified , appears chronic , with apical R to L collaterals. 3. HTN 4. Dyslipidemia 5. HIV Plan: Continue ASA, clopidogrel, metoprolol, lisinopril, Imdur, atorvastatin. No chest pain, off of heparin for 24 hours. Ambulate in Hallway. Transition from metoprolol tartrate to metoprolol succinate 50 mg daily at discharge. Remain on ASA for life. Plavix x 12 months, however, given his complex coronary anatomy, may need mcfp dual antiplatelet therapy. His cath films were reviewed independently yesterday and with Dr Benedict of interventional cardiology. The ostial LAD lesion is calcified and complex and PCI would be technically complex, likely requiring rotational atherectomy, and would place Cx at risk during the procedure. Recommend ongoing medication therapy, as the LAD lesion is chronic and revascularization via PCI would be high risk ,and change of success low . If not angina with max med therapy, CABG not indicated. Will have pt ambulate, if he feels well, plan for DC to home today. Pt to follow up with Dr Hays of our practice in 1-2 weeks, I will help set up visit. Cyril Dooley, DO Laboratory Results Last 24 Hours Test 12/11/16 11:27 12/11/16 16:37 12/11/16 20:32 12/12/16 04:54 Bedside Glucose 129 mg/dl 126 mg/dl 112 mg/dl White Blood Count 5.57 K/uL Red Blood Count 3.25 M/uL Hemoglobin 10.7 g/dL Hematocrit 32.0 % Mean Corpuscular Volume 98.5 fL Mean Corpuscular Hemoglobin 32.9 pg Mean Corpuscular Hemoglobin Concent 33.4 g/dl RDW Standard Deviation 46.9 fL RDW Coefficient of Variation 13.0 % Platelet Count 194 K/uL Mean Platelet Volume 9.4 fL Activated Partial Thromboplast Time 26.3 SECONDS Partial Thromboplastin Ratio 1.0 Test 12/12/16 05:32 12/12/16 08:43 Bedside Glucose 119 mg/dl White Blood Count 5.11 K/uL Red Blood Count 3.29 M/uL Hemoglobin 11.4 g/dL Hematocrit 32.3 % Mean Corpuscular Volume 98.2 fL Mean Corpuscular Hemoglobin 34.7 pg Mean Corpuscular Hemoglobin Concent 35.3 g/dl Platelet Count 195 K/uL Mean Platelet Volume 9.3 fL Neutrophils (%) (Auto) 55.4 % Lymphocytes (%) (Auto) 23.5 % Monocytes (%) (Auto) 12.5 % Eosinophils (%) (Auto) 6.8 % Basophils (%) (Auto) 0.4 % Neutrophils # (Auto) 2.83 K/uL Lymphocytes # (Auto) 1.20 K/uL Monocytes # (Auto) 0.64 K/uL Eosinophils # (Auto) 0.35 K/uL Basophils # (Auto) 0.02 K/uL RDW Standard Deviation 46.6 fL RDW Coefficient of Variation 13.1 % Immature Granulocyte % (Auto) 1.4 % Immature Granulocyte # (Auto) 0.07 K/uL Sodium Level 138 mmol/L Potassium Level 4.1 mmol/L Chloride Level 103 mmol/L Carbon Dioxide Level 29 mmol/L Anion Gap 6.0 mmol/L Blood Urea Nitrogen 11 mg/dl Creatinine 0.88 mg/dl Est Creatinine Clear Calc Drug Dose 96.9 ml/min Estimated GFR () 106.0 Estimated GFR (Non- 91.4 BUN/Creatinine Ratio 12.0 Random Glucose 202 mg/dl Calcium Level 9.0 mg/dl Magnesium Level 2.1 mg/dl
[2016-12-12 12:09] VITALS: BP 107/68; PULSE 70; TEMP 36.5; O2SAT 95
[2016-12-12] MEDS ORDERED: NTRSLP4 SL (14:14)
[2016-12-12] MEDS ORDERED: LPT40 PO (14:14)
[2016-12-12] MEDS ORDERED: PLV75 PO (14:14)
[2016-12-12] MEDS ORDERED: TPRSR50 PO (14:14)
[2016-12-12] MEDS ORDERED: IMDSR30 PO (14:14)
--- NOTE | 2016-12-12 14:14 | Discharge Instructions ---
Discharge Instructions Date of Service Dec 12, 2016. Admission Reason for Admission: Acs, Cad, S/P Right Coronary Artery Stent.. Discharge Discharge Diagnosis / Problem: [place] inferior wall Myocardiac infarction with bare metal stents, Discharge Goals Goal(s): Decrease discomfort, Improve function, Increase independence, Improve disease control, Improve nutritional status, Learn about illness, Diagnostic testing, Therapeutic intervention, Prevent Disease Progression, Specific goals Activity Recommendations Activity Limitations: resume your previous activity . Instructions / Follow-Up Instructions / Follow-Up you have acute inferior wall Myocardiac infarction, you had bare metal stents , you need to continue ASA, clopidogrel, metoprolol, lisinopril, Imdur, atorvastatin. we have transition from metoprolol tartrate to metoprolol succinate 50 mg daily at discharge. Remain on ASA for life. Plavix x 12 months, however, given your complex coronary anatomy, may need knit goods cutter hand dual antiplatelet therapy. you need to follow up with Dr Hays of our practice in 1-2 weeks you have acute systolic/diastolic CHF - compensated. you have diabetics - controlled, you need to continue holding metformin today, and can restarted tomorrow - you need to follow up with your primary care physician in 1 week, - take medication as instructed, never overdose or any misuse, or take with alcohol, because misuse of medicine may cause organ damage or , call your primary care physician if have questions of medicaitons. - call your primary care physician OR go to local emergency room if has any fever/chill, chest pain, shortness of breathing, nausea/vomiting/abdominal pain , facial droop/slurry speech/local weakness, or if has any questions. - fall precaution - diet as instructed - you need to follow up with your subspecialist - you should understand that it is important to follow up the above instruction , and "not following the above instruction" may cause delayed or missed care of your medical conditions which may cause permanent organ damage and even . Home care * Take your medications exactly as directed. Don't skip doses. * Remember that recovery after a heart attack takes time. Plan to rest for at lease 4-8 weeks while you recover. Then return to normal activity when your doctor says it's okay. * Ask your doctor about joining a heart rehabilitation program. * Tell your doctor if you are feeling depressed. Feelings of sadness are common after a heart attack, but it is important that you speak to someone if you are feeling overwhelmed by these feelings. * If you are having chest pain, call 911 for an ambulance. Do NOT drive yourself to the hospital. * Ask your family members to learn CPR. * Learn to take your own blood pressure and pulse. Keep a record of your results. Ask your doctor when you should seek emergency medical attention. He or she will tell you which blood pressure reading is dangerous. Lifestyle Changes: * Maintain a healthy weight. Get help to lose any extra pounds. * Cut back on salt. * Limit canned, dried, packaged, and fast foods. * Don't add salt to your food. * Season foods with herbs instead of salt when you cook. * Break the smoking habit. Enroll in a stop-smoking program to improve your chances of success. * Limit fatty foods. * Ask your doctor about having your lipid levels checked regularly. * Build up your activity according to your doctor's recommendation. * Ask your doctor when it's okay to resume sexual activity. * Tell your doctor about any erectile dysfunction (ED) medication you are taking. Some ED medications are not safe if you take certain heart medications. * Try to manage stress. Follow Up: It is important for you to keep your follow up appointments with your medical provider. Current Hospital Diet Patient's current hospital diet: Diabetes Type 2 Diet, AHA Diet (Heart Healthy) Discharge Diet Recommended Diet: Diabetes Type 2 Diet Procedures Procedures Performed: PCI stents Pending Studies Studies pending at discharge: no Laboratory Results Hemoglobin A1c Test 12/08/16 13:53 Range/Units Estimated Average Glucose 140 mg/dl Hemoglobin A1c 6.5 H 4.5-5.6 % Lipid Panel Test 12/08/16 13:53 Range/Units Triglycerides Level 271 H 0-150 mg/dl Cholesterol Level 104 0-200 mg/dl HDL Cholesterol 28 mg/dl Cholesterol/HDL Ratio 3.7 LDL Cholesterol, Calculated 22 mg/dl Medical Emergencies . Who to Call and When: Medical Emergencies: If at any time you feel your situation is an emergency, please call 911 immediately. Call 911 immediately or go to your nearest Emergency Room if you experience any of the following: Warning Signs and Symptoms of a Heart Attack * Chest pain that is not relieved by medication * Shortness of breath . Non-Emergent Contact Non-Emergency issues call your: Primary Care Provider, [employer] Separator . . "Provider Documentation" section prepared by Jaya Rosario. . AMI Core Measures Reason no ASA as I/P: Treatment provided - N/A Reason no ASA at D/C: Treatment provided - N/A Reason no statin as I/P: Treatment provided - N/A Reason no statin at D/C: Treatment provided - N/A VTE Core Measure Inpt VTE Proph given/why not?: Unfractionated heparin SQ, SCD's
[2016-12-12 14:37] VITALS: BP 107/68; PULSE 70; TEMP 36.5; O2SAT 95
--- NOTE | 2016-12-12 18:29 | Discharge Summary ---
Discharge Summary Date of Service Dec 12, 2016. Discharge Summary Admission Date: Dec 08, 2016 at 14:35 Discharge Date: Dec 12, 2016 Discharge Disposition: Home Principal Diagnosis: STEMI 2nd to RCA occlusion - s/p cath with 2 RCA stents & 1 PDA stent. Problems/Secondary Diagnoses: acute systolic/diastolic CHF T2DM , stable neuropathy stable HIV+ status, stable (1) Anxiety Disorder, Unspecified Status: Chronic (2) CAD (coronary artery disease), [place] coronary artery Status: Chronic (3) Cervicalgia Status: Chronic (4) Gastro-Esophageal Reflux Disease Without Esophagitis Status: Chronic (5) Human Immunodeficiency Virus [Hiv] Disease Status: Chronic (6) Hyperlipidemia, Unspecified Status: Chronic (7) Hypertension Status: Chronic (8) Lumbar stenosis Status: Chronic (9) Old Myocardial Infarction Status: Chronic (10) Polyneuropathy, Unspecified Status: Chronic (11) Type 2 Diabetes Mellitus Without Complications Status: Chronic Procedures: Left heart cath Consultations: Supervisor Forming Department Medication Reconciliation New Medications: Atorvastatin (Atorvastatin Calcium) 40 Mg Tab 80 MG PO QAM for 30 Days, #60 TAB Clopidogrel Bisulfate (Clopidogrel) 75 Mg Tab 75 MG PO QAM for 30 Days, #30 TAB Isosorbide Mononitrate (Isosorbide Mononitrate ER) 30 Mg Tabcr 90 MG PO DAILY for 30 Days Metoprolol Succinate (Metoprolol Succinate ER) 50 Mg Tabcr 50 MG PO QAM for 30 Days Nitroglycerin (Nitrostat) 0.4 Mg/1 Tab Subl 0.4 MG SL UD PRN for Chest Pain, #50 Continued Medications: Abacavir Sulfate-Lamivudine (Epzicom) 1 Tab Tab 1 TAB PO QAM, TAB Aspirin (Aspirin Ec) 81 Mg Tab 81 MG PO HS Cyanocobalamin (Vitamin B-12 1000 Mcg) 1,000 Mcg Tab 1000 MCG SL QAM, TAB Darunavir Ethanolate (Prezista) 600 Mg Tab 600 MG PO BID TAKE THIS MEDICATION TWICE DAILY WITH FOOD Gabapentin (Neurontin) 600 Mg Tab 600 MG PO TID, TAB Lisinopril (Zestril) 2.5 Mg Tab 2.5 MG PO QAM Metformin Hcl (Glucophage) 500 Mg Tab 500 MG PO BID, TAB Omeprazole (Prilosec) 20 Mg Capcr 20 MG PO QAM, CAP Oxybutynin Chloride (Oxybutynin Chloride ER) 5 Mg Tabcr 5 MG PO QAM Ritonavir (Norvir) 100 Mg Tab 100 MG PO BID, TAB Venlafaxine Hcl (Venlafaxine Hcl Er) 150 Mg Tab 1 TAB PO QAM, TAB Discontinued Medications: Atorvastatin (Lipitor) 10 Mg Tab 10 MG PO HS, TAB Isosorbide Mononitrate Ext Rel (Imdur Ext Rel) 30 Mg Ertab 30 MG PO BID, TAB Metoprolol Tartrate (Lopressor) (Lopressor) 25 Mg Tab 25 MG PO BID, TAB Discharge Exam Has been doing well, Out of bed and walk there was no chest pain Eating and voiding good Review of Systems: Constitutional: No fever, No chills, No sweats, No weight loss, No weakness , No fatigue, No problem reported Eyes: No worsening of vision, No eye pain, No redness, No discharge, No diplopia, No problem reported ENT: No hearing loss, No unusual epistaxis, No nasal symptoms, No sore throat, No tinnitus, No dental problems, No trouble swallowing, No problem reported Respiratory: No cough, No sputum, No wheezing, No shortness of breath, No dyspnea on exertion, No dyspnea at rest, No hemoptysis, No problem reported Cardiovascular: No chest pain, No orthopnea, No PND, No edema, No claudication, No palpitations, No problem reported Abdomen: No pain, No nausea, No vomiting, No diarrhea, No constipation, No GI bleeding, No problem reported Genitourinary - Male: No hematuria, No dysuria, No urinary frequency, No urinary urgency, No urinary hesitancy, No urinary retention, No urinary incontinence, No penile discharge, No lesions, No impotence, No problem reported Neurologic: No memory loss, No paralysis, No weakness, No numbness/tingling , No vertigo, No balance problems, No problem reported Psychiatric: No depression symptoms, No anhedonism, No anxiety, No insomnia , No substance abuse, No problem reported Integumentary: No rash, No itch, No new/changing skin lesions, No color change, No bleeding, No problem reported Physical Exam: General Appearance: WD/WN, no apparent distress Eyes: normal inspection, PERRL ENT: normal ENT inspection, hearing grossly normal, TMs normal, pharynx normal Neck: supple, no adenopathy, thyroid normal Respiratory/Chest: chest non-tender, no respiratory distress, no accessory muscle use, + decreased breath sounds Cardiovascular: regular rate, rhythm, no edema, no gallop, no JVD, no murmur , normal peripheral pulses Abdomen / GI: normal bowel sounds, non tender, soft, no organomegaly, no pulsatile mass, normal rectal exam, occult blood negative Extremities: normal inspection, no calf tenderness, normal capillary refill , + pertinent finding (right groin area the cardiac cath place has no obvious tender or bluish) Neurologic/Psychiatric: show host/hostess II-XII nml as tested, no motor/sensory deficits , alert, normal mood/affect Hospital Course 61yo male needed on 12/08/2016 with Problems in below 1. STEMI 2nd to RCA occlusion - s/p cath with 2 RCA stents & 1 PDA stent. LAD stenosis also found with some collateralization. Had recurrent chest pain AM of 12/10/16. Fortunately resoled with nitro. Heparin drip restarted was discontinued by cloth laminating supervisor Has been on asa, plavix, BB, statin, JOE, imdur. Attempting to get records from [facility] in [place], [place], to determine best course of action on LAD lesion (question of whether this is old vs new, whether to pursue medical management vs intervention, etc). Defer management to cardiology. acute systolic/diastolic CHF - compensated. Depressed EF 2nd to #1. Hopefully will improve with time and also with intervention of LAD lesion. T2DM - controlled. Has been on lantus and novolog correction; holding metformin. Postcardiac has renal function has been stable , We'll agreed to restart metformin from tomorrow neuropathy - 2nd to #3? HIV? continue gabapentin. controlled. HIV+ status - continue triple therapy. No infectious issues at this time. DVT proph - systemic heparin. FEN - lytes stable; AHA/DM diet. Saline lock IV. Discussed with cloth laminating supervisor patient okay to be discharged in stable condition Instructions / Follow-Up you have acute inferior wall Myocardiac infarction, you had bare metal stents , you need to continue ASA, clopidogrel, metoprolol, lisinopril, Imdur, atorvastatin. we have transition from metoprolol tartrate to metoprolol succinate 50 mg daily at discharge. Remain on ASA for life. Plavix x 12 months, however, given your complex coronary anatomy, may need fci dual antiplatelet therapy. you need to follow up with Dr Hays of our practice in 1-2 weeks you have acute systolic/diastolic CHF - compensated. you have diabetics - controlled, you need to continue holding metformin today, and can restarted tomorrow - you need to follow up with your primary care physician in 1 week, - take medication as instructed, never overdose or any misuse, or take with alcohol, because misuse of medicine may cause organ damage or , call your primary care physician if have questions of medicaitons. - call your primary care physician OR go to local emergency room if has any fever/chill, chest pain, shortness of breathing, nausea/vomiting/abdominal pain , facial droop/slurry speech/local weakness, or if has any questions. - fall precaution - diet as instructed - you need to follow up with your subspecialist - you should understand that it is important to follow up the above instruction , and "not following the above instruction" may cause delayed or missed care of your medical conditions which may cause permanent organ damage and even . Total Time Spent: Greater than 30 minutes This includes examination of the patient, discharge planning, medication reconciliation, and communication with other providers. Discharge Instructions Please refer to the electronic Patient Visit Report (Discharge Instructions) for additional information. Additional Copies To RV. Pablo MD
[2016-12-13] MEDS ORDERED: METOPROLOL SUCC 50MG EXT REL TAB PO SCH (09:00)
[2017-02-06] MEDS ORDERED: METO-217 PO (14:28)
== END 2016-12-12 15:32 | disposition home or self-care (01) | DRG 248 ==
LOC: C.EDB 07:41 → ENRESERV 10:30 → CANRESERV 10:30 → EDBEDREQSVC 10:45 → ENRESERV 10:54 → UNDOADMIN 12:53 → C.MSICU 12:53 → C.2E 12-12 06:11
PROVIDERS: ADMIT Internal Medicine Cardiovascular Disease; ATTEND Hospitalist
PROC: B2111ZZ Fluoroscopy of Multiple Coronary Arteries using Low Osmolar Contrast (ICD-10-PCS; 2016-12-08)
PROC: 4A023N7 Measurement of Cardiac Sampling and Pressure, Left Heart, Percutaneous Approach (ICD-10-PCS; 2016-12-08)
PROC: B2151ZZ Fluoroscopy of Left Heart using Low Osmolar Contrast (ICD-10-PCS; 2016-12-08)
PROC: 02713FZ Dilation of Coronary Artery, Two Arteries with Three Intraluminal Devices, Percutaneous Approach (ICD-10-PCS; principal; 2016-12-08 09:34)
PROC: B2111ZZ Fluoroscopy of Multiple Coronary Arteries using Low Osmolar Contrast (ICD-10-PCS; principal; 2016-12-08 09:34)
DX: I21.4 Non-ST elevation (NSTEMI) myocardial infarction (principal); I50.41 Acute combined systolic (congestive) and diastolic (congestive) heart failure; I25.110 Atherosclerotic heart disease of native coronary artery with unstable angina pectoris; I11.0 Hypertensive heart disease with heart failure; Z86.718 Personal history of other venous thrombosis and embolism; K21.9 Gastro-esophageal reflux disease without esophagitis; G62.9 Polyneuropathy, unspecified; E11.42 Type 2 diabetes mellitus with diabetic polyneuropathy; Z95.5 Presence of coronary angioplasty implant and graft; Z87.891 Personal history of nicotine dependence; E78.5 Hyperlipidemia, unspecified; M48.06 Spinal stenosis, lumbar region; S06.9X9S Unspecified intracranial injury with loss of consciousness of unspecified duration, sequela; X58.XXXS Exposure to other specified factors, sequela; Z21 Asymptomatic human immunodeficiency virus [HIV] infection status; Z88.0 Allergy status to penicillin

== ENCOUNTER → 2017-03-21 | Outpatient (CLI) | payer OTHER ==
[~2017-03-21] MED LIST changes: -ATOR10TA88 PO; -CMD/25 PO; +CYAN10004 SL; -HYDR-5688 PO; +IMDSR30 PO; -ISOS30TA3 PO; +LPT40 PO; -METO25TA56 PO; +NTRSLP4 SL; +PLV75 PO
[2017-03-21 15:48] LABS: ALT/SGPT 48 U/L (12-78); AST/SGOT 33 U/L (15-37); BLOOD UREA NITROGEN 15 mg/dl (7-18); BUN/CREATININE RATIO 18.3 (10-20); CARBON DIOXIDE 25 mmol/L (21-32); CHLORIDE 103 mmol/L (98-107); CHOLESTEROL 125 mg/dl (0-200); GLUCOSE 122 mg/dl (70-99); POTASSIUM 4.6 mmol/L (3.5-5.1); SODIUM 136 mmol/L (136-145); TRIGLYCERIDES 461 mg/dl (0-150)
[2017-03-21 15:50] LABS: ALB/GLOB RATIO 1.1 (0.9-2); ALKALINE PHOSPHATASE 74 U/L (45-117); HDL CHOLESTEROL 21 mg/dl
[2017-03-22 06:41] LABS: ESTIMATED AVERAGE GLUCOSE 146 mg/dl; HA1C FLAG Normal (Normal)
== END | disposition home or self-care (01) ==
LOC: C.LAB1850 11:51
PROVIDERS: ATTEND Internal Medicine
DX: E11.9 Type 2 diabetes mellitus without complications (principal); E53.8 Deficiency of other specified B group vitamins; B20 Human immunodeficiency virus [HIV] disease; E55.9 Vitamin D deficiency, unspecified

== ENCOUNTER → 2017-03-28 | Outpatient (CLI) | payer OTHER ==
--- NOTE | 2017-03-28 11:54 | DIAGNOSTIC IMAGING REPORT ---
LEFT FOOT 3 VIEWS CLINICAL HISTORY: Neuropathic pain. FINDINGS: 3 views of left foot are obtained. No prior studies are available for comparison at the time of dictation. The skeletal structures are osteopenic. No fracture is seen. Mild to moderate arthritic change is noted at the first metatarsophalangeal joint. The joint spaces of the foot are otherwise preserved. The overlying soft tissues are within normal limits. Atherosclerotic calcification is seen in the regional arteries. IMPRESSION: Osteopenia and mild arthritic change as above. No acute bony abnormality is identified in the left foot. Electronically signed by: Rcio Feldman M.D. 03/28/2017 11:53 AM Dictated Date/Time: 03/28/2017 11:52 AM
== END | disposition home or self-care (01) ==
LOC: C.RAD1850 11:18
PROVIDERS: ATTEND Internal Medicine
DX: G62.9 Polyneuropathy, unspecified (principal)

== ENCOUNTER → 2017-07-20 | Outpatient (CLI) | payer OTHER | END | disposition home or self-care (01) | LOC: C.LABBC 08:33 | PROVIDERS: ATTEND Internal Medicine | DX: R39.9 Unspecified symptoms and signs involving the genitourinary system (principal) ==

== ENCOUNTER → 2017-09-14 | Outpatient (CLI) | payer OTHER ==
[2017-09-14 16:57] LABS: HEMOGLOBIN A1C 7.2 % (4.5-5.6)
[2017-09-14 17:13] LABS: BLOOD UREA NITROGEN 16 mg/dl (7-18); GLUCOSE 145 mg/dl (70-99)
[2017-09-14 17:14] LABS: ALBUMIN 3.8 gm/dl (3.4-5.0); ALKALINE PHOSPHATASE 88 U/L (45-117); ALT/SGPT 69 U/L (12-78); AST/SGOT 45 U/L (15-37); CARBON DIOXIDE 26 mmol/L (21-32); CHOLESTEROL 119 mg/dl (0-200); LDL CHOLESTEROL CALCULATED 15 mg/dl; POTASSIUM 4.2 mmol/L (3.5-5.1); SODIUM 136 mmol/L (136-145); TOTAL PROTEIN 8.2 gm/dl (6.4-8.2)
== END | disposition home or self-care (01) ==
LOC: C.LABBC 14:34
PROVIDERS: ATTEND Internal Medicine
DX: B20 Human immunodeficiency virus [HIV] disease (principal); E11.9 Type 2 diabetes mellitus without complications; N39.0 Urinary tract infection, site not specified; E78.5 Hyperlipidemia, unspecified; E55.9 Vitamin D deficiency, unspecified

== ENCOUNTER → 2017-09-17 | Outpatient (CLI) | payer OTHER | END | disposition home or self-care (01) | LOC: C.LABBC 08:59 | PROVIDERS: ATTEND Internal Medicine | DX: B20 Human immunodeficiency virus [HIV] disease (principal) ==

== ENCOUNTER → 2017-11-26 | Outpatient (CLI) | payer OTHER ==
[2017-11-29 18:31] LABS: LSP % CELLS ANALYZED CD4 26 % (30-61); LSP ABSOLUTE CT CD4 478 cells/uL (490-1740)
== END | disposition home or self-care (01) ==
LOC: C.LABBC 08:43
PROVIDERS: ATTEND Internal Medicine Infectious Disease
DX: B20 Human immunodeficiency virus [HIV] disease (principal)

== ENCOUNTER 2017-12-06 12:07 | Inpatient (IN) | payer OTHER ==
[~2017-12-06] VITALS: Ht 185.4 cm; Wt 78.7 kg
[2017-12-06] VITALS (17 sets, daily range): BP systolic 110–131; BP diastolic 59–73; PULSE 60–82; TEMP 36.4–36.9; O2SAT 94–98; Ht 185.4 cm; Wt 78.7 kg
[~2017-12-06 12:07] MED LIST changes: +CYAN10004 PO; -CYAN10004 SL
[2017-12-06] MEDS ORDERED: ASPIRIN 324 MG CHEW ONE (12:20)
[2017-12-06] MEDS ORDERED: ASPIRIN 81 MG CHEW PO STA (12:20)
[2017-12-06] MEDS ORDERED: SODIUM CHLORIDE 0.9% 1000ML 1,000 ML IV STA (12:34)
[2017-12-06 12:39] LABS: BASO % 0.3 %; BASO ABS # 0.02 K/uL (0-0.2); EOS % 3.8 %; EOS ABS # 0.24 K/uL (0-0.5); HEMATOCRIT 37.8 % (42-52); HEMOGLOBIN 13.4 g/dL (14.0-18.0); IG# 0.05 K/uL (0.00-0.02); LYMPH % 32.4 %; LYMPH ABS # 2.03 K/uL (1.2-3.4); MEAN CORPUSCULAR HEMOGLOBIN 33.7 pg (25-34); MEAN CORPUSCULAR HGB CONC 35.4 g/dl (32-36); MEAN PLATELET VOLUME 9.5 fL (7.4-10.4); MONO % 11.8 %; MONO ABS # 0.74 K/uL (0.11-0.59); NEUT % 50.9 %; NEUT ABS # 3.18 K/uL (1.4-6.5); PLATELET COUNT 215 K/uL (130-400); RED CELL DISTRIBUTION WIDTH CV 12.5 % (11.5-14.5); WHITE BLOOD COUNT 6.26 K/uL (4.8-10.8)
[2017-12-06] MEDS ORDERED: NiCARDipine HCL INJ 2.5 MG/ML 10 ML AMP ONE (12:40)
[2017-12-06] MEDS ORDERED: FENTANYL CITRATE INJ 50 MCG/1 ML 2 ML VIAL ONE (12:40)
[2017-12-06] MEDS ORDERED: MIDAZOLAM HCL 1 MG/ML 2ML VIAL ONE (12:40)
[2017-12-06] MEDS ORDERED: HEPARIN SOD (PORCINE) 1000 UNIT/ML 10 ML VIAL ONE (12:40)
[2017-12-06] MEDS ORDERED: NITROGLYCERIN/D5W 100MCG/ML 20ML SYR ONE (12:42)
[2017-12-06] MEDS ORDERED: NITROGLYCERIN/D5W 100 MCG/ML 250 ML IV PRN (12:45)
[2017-12-06 12:46] LABS: ISTAT CREATININE 0.8 mg/dl (0.6-1.3); ISTAT IONIZED CALCIUM 1.18 mmol/l (1.12-1.32); ISTAT POTASSIUM 3.9 mEq/L (3.3-5.0)
[2017-12-06 12:56] LABS: PTT PATIENT 23.8 SECONDS (21.0-31.0)
--- NOTE | 2017-12-06 12:58 | EMERGENCY ROOM VISIT NOTE ---
History Report prepared by Art: Viki Smyth Under the Supervision of: Dr. Blaze Choe M.D. First contact with patient: 12:11 Chief Complaint: CARDIAC ASSESSMENT Stated Complaint: PRESSURE ON CHEST History of Present Illness The patient is a 62 year old male who presents to the Emergency Room with complaints of constant chest pain beginning 3.5 hours ago. He describes the pain as a pressure that he rates as an 8/10, and notes he was stretching before a walk when it began. The patient states he started his walk before deciding the pressure was too much to continue. He notes he returned to his apartment and took nitroglycerin, which did not relieve his pain. He notes the pain is worst in the center of his chest, and radiates to his back and R shoulder and neck. The patient notes minimal SOB, and states he feels unable to take a deep breath. He denies any headache. The patient sees Dr. Hays of [facility] cardiology, and last saw him about 4 weeks ago. He notes a history of 2 mild heart attacks and a stent placed one year ago. The patient denies a history of stroke or open heart surgery. Source of History: patient Onset: 3.5 hours ago Position: chest Symptom Intensity: 8/10 Quality: pressure Associated Symptoms: + SOB (minimal), + back pain, No headache Note: Associated symptom: R shoulder pain Review of Systems See HPI for pertinent positives and negatives. A total of ten systems were reviewed and were otherwise negative. Past Medical & Surgical Medical Problems: (1) Acute myocardial infarction (2) Anxiety Disorder, Unspecified (3) CAD (coronary artery disease), [place] coronary artery (4) Cervicalgia (5) Deep vein thrombosis (6) Gastro-Esophageal Reflux Disease Without Esophagitis (7) Human Immunodeficiency Virus [Hiv] Disease (8) Hyperlipidemia, Unspecified (9) Hypertension (10) Injury of left shoulder (11) Injury of left shoulder (12) Lumbar stenosis (13) Old Myocardial Infarction (14) Polyneuropathy, Unspecified (15) Type 2 Diabetes Mellitus Without Complications Family History Colon cancer Diabetes mellitus Myocardial infarction Social History Smoking Status: Former Smoker Drug Use: none Marital Status: single Housing Status: lives alone Occupation Status: retired Current/Historical Medications Scheduled Abacavir Sulfate-Lamivudine (Epzicom), 1 TAB PO QAM Aspirin (Aspirin Ec), 81 MG PO HS Atorvastatin (Lipitor), 80 MG PO QAM Clopidogrel Bisulfate (Clopidogrel), 75 MG PO QAM Cyanocobalamin (Vitamin B-12 1000 Mcg), 1,000 MCG SL QAM Darunavir Ethanolate (Prezista), 600 MG PO BID Gabapentin (Neurontin), 600 MG PO TID Isosorbide Mononitrate (Isosorbide Mononitrate ER), 90 MG PO DAILY Lisinopril (Zestril), 2.5 MG PO QAM Metformin Hcl (Glucophage), 500 MG PO BID Omeprazole (Prilosec), 20 MG PO QAM Oxybutynin Chloride (Oxybutynin Chloride ER), 5 MG PO QAM Ritonavir (Norvir), 100 MG PO BID Venlafaxine Hcl (Venlafaxine Hcl Er), 1 TAB PO QAM Scheduled PRN Nitroglycerin (Nitrostat), 0.4 MG SL UD PRN for Chest Pain Allergies Coded Allergies: Penicillins (Verified Allergy, Mild, RASH, 12/08/16) Physical Exam Vital Signs Date Time Temp Pulse Resp B/P (MAP) Pulse Ox O2 Delivery O2 Flow Rate FiO2 12/06/17 13:35 75 16 128/70 (89) 96 Room Air 12/06/17 13:30 Room Air 12/06/17 13:25 Room Air 12/06/17 13:20 64 16 130/77 (94) 96 Room Air 12/06/17 12:44 96 Room Air 12/06/17 12:44 96 Room Air 12/06/17 12:29 97 Room Air 12/06/17 12:23 88 12/06/17 12:08 36.5 76 20 158/85 97 Room Air Physical Exam Physical Exam GENERAL: He is oriented to person, place, and time. He appears well-developed and well-nourished. He does not appear distressed. HENT: Exam performed. Head: Normocephalic and atraumatic. Right Ear: External ear normal. No mastoid tenderness. Left Ear: External ear normal. No mastoid tenderness. Mouth/Throat: The oropharynx is clear and moist. No trismus in the jaw. No dental abscesses or uvula swelling. No oropharyngeal exudate or tonsillar abscesses. EYES: Conjunctivae and EOM are normal. Pupils are equal, round, and reactive to light. Right eye exhibits no discharge. Left eye exhibits no discharge. No scleral icterus. NECK: Normal range of motion. Neck supple. No JVD present. No spinous process tenderness present. No carotid bruit present. No rigidity. No tracheal deviation and normal range of motion present. No Brudzinski's sign and no Kernig 's sign noted. CV: Normal rate, regular rhythm, normal heart sounds and intact distal pulses. There is no peripheral edema. Palpable radial pulses bue. PULM/CHEST: Effort normal and breath sounds normal. No respiratory distress. No stridor. He has no wheezes. He has no rales. Chest Wall: He exhibits no tenderness. ABD: The abdomen is soft. Bowel sounds are normal. He has no distension. No mass is present. There is no tenderness. There is no rebound, no guarding, no Davis's sign and no tenderness at McBurney's point. Rovsig negative. MUSC/SKEL: Normal range of motion. There is no peripheral edema, tenderness or deformity. LYMPH: No cervical adenopathy. NEURO: He is alert and oriented to person, place, and time. He has normal strength. No cranial nerve deficit or sensory deficit. Coordination and gait normal. GCS eye subscore is 4. GCS verbal subscore is 5. GCS motor subscore is 6. Cerebellar tests wnl. SKIN: Skin is warm and dry. He is not diaphoretic. PSYCH: He has a normal mood and affect. Behavior is normal. Judgment and thought content normal. Medical Decision & Procedures Laboratory Results 12/06/17 12:30 Red Blood Count 3.98, Mean Corpuscular Volume 95.0, Mean Corpuscular Hemoglobin 33.7, Mean Corpuscular Hemoglobin Concent 35.4, Mean Platelet Volume 9.5, Neutrophils (%) (Auto) 50.9, Lymphocytes (%) (Auto) 32.4, Monocytes (%) (Auto) 11.8, Eosinophils (%) (Auto) 3.8, Basophils (%) (Auto) 0.3, Neutrophils # (Auto ) 3.18, Lymphocytes # (Auto) 2.03, Monocytes # (Auto) 0.74, Eosinophils # (Auto ) 0.24, Basophils # (Auto) 0.02 12/06/17 12:30 Test 12/06/17 12:30 8/9/18 12:32 12/06/17 13:17 White Blood Count 6.26 K/uL (4.8-10.8) Red Blood Count 3.98 M/uL (4.7-6.1) Hemoglobin 13.4 g/dL (14.0-18.0) Hematocrit 37.8 % (42-52) Mean Corpuscular Volume 95.0 fL (80-100) Mean Corpuscular Hemoglobin 33.7 pg (25-34) Mean Corpuscular Hemoglobin Concent 35.4 g/dl (32-36) Platelet Count 215 K/uL (130-400) Mean Platelet Volume 9.5 fL (7.4-10.4) Neutrophils (%) (Auto) 50.9 % Lymphocytes (%) (Auto) 32.4 % Monocytes (%) (Auto) 11.8 % Eosinophils (%) (Auto) 3.8 % Basophils (%) (Auto) 0.3 % Neutrophils # (Auto) 3.18 K/uL (1.4-6.5) Lymphocytes # (Auto) 2.03 K/uL (1.2-3.4) Monocytes # (Auto) 0.74 K/uL (0.11-0.59) Eosinophils # (Auto) 0.24 K/uL (0-0.5) Basophils # (Auto) 0.02 K/uL (0-0.2) RDW Standard Deviation 43.0 fL (36.4-46.3) RDW Coefficient of Variation 12.5 % (11.5-14.5) Immature Granulocyte % (Auto) 0.8 % Immature Granulocyte # (Auto) 0.05 K/uL (0.00-0.02) Prothrombin Time 10.1 SECONDS (9.0-12.0) Prothromb Time International Ratio 1.0 (0.9-1.1) Activated Partial Thromboplast Time 23.8 SECONDS (21.0-31.0) Partial Thromboplastin Ratio 0.9 Est Creatinine Clear Calc Drug Dose 92.7 ml/min Estimated GFR () 102.9 Estimated GFR (Non- 88.8 BUN/Creatinine Ratio 21.5 (10-20) Calcium Level 8.9 mg/dl (8.5-10.1) Magnesium Level 2.0 mg/dl (1.8-2.4) Total Bilirubin 0.2 mg/dl (0.2-1) Direct Bilirubin 0.1 mg/dl (0-0.2) Aspartate Amino Transf (AST/SGOT) 55 U/L (15-37) Alanine Aminotransferase (ALT/SGPT) 67 U/L (12-78) Alkaline Phosphatase 79 U/L (45-117) Total Creatine Kinase 591 U/L (39-308) Creatine Kinase MB 24.0 ng/ml (0.5-3.6) Creatine Kinase MB Ratio 4.1 (0-3.0) Troponin I 0.223 ng/ml (0-0.045) Total Protein 7.8 gm/dl (6.4-8.2) Albumin 3.6 gm/dl (3.4-5.0) Triglycerides Level 165 mg/dl (0-150) Cholesterol Level 83 mg/dl (0-200) HDL Cholesterol 23 mg/dl LDL Cholesterol Direct 56 mg/dl LDL Cholesterol, Calculated mg/dl VLDL Cholesterol, Calculated 33 mg/dl Cholesterol/HDL Ratio 3.6 Lipase 475 U/L (73-393) Bedside Hemoglobin 12.6 g/dl (14.0-18.0) Bedside Hematocrit 37 % (42-52) Bedside Sodium 142 mEq/L (135-144) Bedside Potassium 3.9 mEq/L (3.3-5.0) Bedside Chloride 107 mEq/L (101-112) Bedside Total CO2 22 mEq/l (24-31) Anion Gap 18.0 mmol/L (16-25) Bedside Blood Urea Nitrogen 20 mg/dl (7-18) Bedside Creatinine 0.8 mg/dl (0.6-1.3) Bedside Glucose (other) 169 mg/dl (70-99) Bedside Ionized Calcium (Aundrea) 1.18 mmol/l (1.12-1.32) Kaolin Activated Coagulation Time 186 SECONDS (94-140) Laboratory results reviewed by me Medications Administered Medications (Trade) Dose Ordered Sig/Margot Route Start Time Stop Time Status Last Admin Dose Admin Aspirin (Aspirin Chew) 324 mg STK-MED ONCE .ROUTE 12/06/17 12:20 12/06/17 12:21 DC 12/06/17 12:20 324 MG Sodium Chloride 1,000 ml @ 999 mls/hr Q1H1M STAT IV 12/06/17 12:34 12/06/17 13:34 DC 12/06/17 12:20 999 MLS/HR Nitroglycerin/ Dextrose (Nitroglycerin/ D5w 100 Mcg/Ml 20ML SYRINGE) 2,000 mcg STK-MED ONCE .ROUTE 12/06/17 12:42 12/06/17 12:43 DC 12/06/17 12:20 2,000 MCG ECG Per My Interpretation Indication: chest pain Rate (beats per minute): 65 Rhythm: normal sinus Findings: ST depression (leads V2, V3, V4, V5), other ([place] QRS QTC intervals within normal limits.) Comparison ECG Date: Repeat EKGS 1218, 1237 Change: Intial EKG 1213 12/06/17. Repeat EKG 1218 12/06/17: Normal sinus rhythm. Rate of 68 bpm. [place], QRS, QTC intervals within normal limits. ST depression in V2, V3, V4, V5. Repeat EKG 1227 12/06/17: Normal sinus rhythm. Rate of 73 bpm. NSR 68. [place], QRS, QTC intervals within normal limits. ST depression in V2, V3, V4, V5. Lead [address] elevation in AVR, lead 3. Heart alert called. ED Course 1215: The patient was evaluated in room A11B. A complete history and physical exam was performed. 1222: EKG shows ST depression in V2, V3, V4, V5. discussed the patient's case with Dr. Rasmussen, [facility] spot checker data virtualization consultant for heart alert. He does not feel there is a need to activate the cath team at this time. Dr. Rasmussen recommends consulting the patient's regular spot checker Dr. Hays. 1227 12/06/17: Repeat EKG normal sinus rhythm. Rate of 73 bpm. [place], QRS, QTC intervals within normal limits. Worsening ST depression in V2, V3, V4, V5. Lead [address] elevation in AVR, lead 3. Heart alert activated. 1237: Dr. Rasmussen, [facility] spot checker is at bedside, taking patient to clinical lab clerk. Nitro drip and heparin drip started. Medical Decision 1215: The patient was evaluated in room A11B. A complete history and physical exam was performed. 1222: EKG shows ST depression in V2, V3, V4, V5. discussed the patient's case with Dr. Rasmussen [facility] spot checker data virtualization consultant for heart alert. He does not feel there is a need to activate the cath team at this time. Dr. Rasmussen recommends consulting the patient's regular spot checker Dr. Hays. 1227 12/06/17: Repeat EKG normal sinus rhythm. Rate of 73 bpm. [place], QRS, QTC intervals within normal limits. Worsening ST depression in V2, V3, V4, V5. Lead [address] elevation in AVR, lead 3. Heart alert activated. 1237: Dr. Rasmussen [facility] spot checker is at bedside, taking patient to clinical lab clerk. Nitro drip and heparin drip started. Medication Reconcilliation Current Medication List: was personally reviewed by me Consults Time Called: 1220 Consulting Physician: Dr. Rasmussen [facility] spot checker Returned Call: 1221 1222: Discussed the patient's case with Dr. Rasmussen [facility] spot checker. He does not feel there is a need to activate the cath team at this time. Dr. Rasmussen recommends consulting the patient's regular spot checker. 1237: Dr. Rasmussen [facility] spot checker. is at bedside, taking patient to clinical lab clerk. Impression Primary Impression: STEMI (ST elevation myocardial infarction) Critical Care I have personally spent greater than 38 minutes of critical care time in the direct management of this patient. This includes bedside care, interpretation of diagnostic studies, and testing, discussion with consultants, patient, and family members, and other required patient management activities. This 38 minutes is in excess of all separately billable procedures. Scribe Attestation The scribe's documentation has been prepared under my direction and personally reviewed by me in its entirety. I confirm that the note above accurately reflects all work, treatment, procedures, and medical decision making performed by me. The chart was completed utilizing [employer] voice recognition software. Grammatical errors, random word insertions, pronoun errors, and incomplete sentences are an occasional consequence of this system due to software limitations, ambient noise, and hardware issues. Any formal questions or concerns about the content, text, or information contained within the body of this dictation should be directly addressed to the physician for clarification. Departure Information Dispostion Admitted as an inpatient Referrals RV. Pablo MD (PCP) Patient Instructions My [facility] Problem Qualifiers Primary Impression: STEMI (ST elevation myocardial infarction) Involved coronary artery: unspecified coronary artery Qualified Codes: I21.3 - ST elevation (STEMI) myocardial infarction of unspecified site
[2017-12-06 13:13] LABS: ALBUMIN 3.6 gm/dl (3.4-5.0); CALCIUM 8.9 mg/dl (8.5-10.1); CREATININE 0.91 mg/dl (0.60-1.40); POTASSIUM 3.9 mmol/L (3.5-5.1); TOTAL PROTEIN 7.8 gm/dl (6.4-8.2)
[2017-12-06] MEDS ORDERED: CLOPIDOGREL BISULFATE 300 MG TAB PO ONE (13:19)
[2017-12-06] MEDS ORDERED: ACETAMINOPHEN 325 MG TAB PO PRN (13:30)
[2017-12-06] MEDS ORDERED: SODIUM CHLORIDE 0.9% 1000ML 1,000 ML IV SCH (13:30)
[2017-12-06] MEDS ORDERED: NITROGLYCERIN 0.4 MG SL PER TAB CHARGE SL PRN (13:30)
[2017-12-06] MEDS ORDERED: MoRPHine SULFATE 2 MG/ML CARP IV PRN (13:30)
[2017-12-06] MEDS ORDERED: ONDANSETRON INJ 8 MG in DEXTROSE 5% 50ML 50 ML IV PRN (13:30)
[2017-12-06] MEDS ORDERED: ATROPINE SULFATE 0.1 MG/ML 5ML SYR IV PRN (13:30)
[2017-12-06 14:37] LABS: CHOLESTEROL 83 mg/dl (0-200); LDL CHOLESTEROL (DIRECT) 56 mg/dl
--- NOTE | 2017-12-06 14:40 | CARDIAC CATH REPORT ---
INDICATIONS: Acute posterior AR, early in onset in a 62-year-old male with a known history of hypertension, diabetes, hypercholesterolemia, probable remote myocardial infarction, and percutaneous coronary intervention of the right coronary artery 1 year earlier. He is with no presenting symptoms of congestive heart failure. PROCEDURES PERFORMED: Left heart catheterization, coronary cineangiography, percutaneous coronary intervention with drug-eluting stent x1, circumflex posterior lateral branch, radiological interpretation, and supervision. 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 After local anesthesia of 2% lidocaine, a 6-Spanish sheath was placed in the right femoral artery. ACT was obtained, and heparin was administered and titrated to an ACT on the order of 250 seconds. A 6-Spanish AR2 guiding catheter was advanced over wire under fluoroscopic guidance to the central circulation where it was aspirated and flushed. After confirmation of adequate waveforms, it was advanced into the right coronary artery. Cineangiograms of the right coronary artery obtained and reviewed. The catheter was removed from body over wire. The sheath was aspirated and flushed. A 6-Spanish EBU 3.5 guiding catheter was advanced over wire under fluoroscopic guidance to the central circulation where it was aspirated and flushed. After confirmation of adequate waveforms, it was advanced into the left main. Cineangiograms of the left coronary artery obtained and reviewed. A 0.014-inch ship harbor pilot wire was advanced through the guiding catheter across the area of stenosis of the apical circumflex posterolateral branch. A 2.5 Mini Trek 12 angioplasty catheter positioned in the mid vessel inflated to a maximum pressure of less than a minute. Balloon was withdrawn. A 2.5 Xience 23 stent was positioned in the mid vessel and inflated to a maximum pressure of less than a minute. Balloon was withdrawn. The stented segment was postdilated using a 3.0 NC Trek 15 angioplasty catheter. Maximum pressure for less than a minute on multiple occasions. Final cineangiograms were obtained, and the wire was removed from the coronary artery. Guiding catheter was removed from left main under fluoroscopic guidance and removed from body over wire. Sheath was aspirated and flushed. A 5-Spanish angled pigtail was used to cross the aortic valve in retrograde fashion. Left ventricular end diastolic pressure was measured. The catheter was withdrawn from the left ventricle to the aorta, and continuous pressure monitoring removed from body over wire. The sheath was aspirated and flushed. An Angio-Seal was deployed of the right femoral artery. Patient returned to his room in good condition. COMPLICATIONS: None. FINDINGS: Left main has a distal 33% noncritical calcified stenosis. Left anterior descending artery is moderate in caliber, heavily calcified with an ostial 70% stenosis and a mid subtotal occlusion after a second diagonal branch. Left circumflex is moderate to large in caliber with a mid 30% noncritical stenosis. The remainder of the circumflex was free of significant disease. Two small marginal branches were free of significant disease. The first circumflex posterolateral branch had a focal 99% stenosis in its mid portion. The right coronary artery has an ostial calcification with no significant stenosis associated. A mid stented segment has a 60% noncritical stenotic segment. The distal right coronary artery had a 50% focal stenosis. The posterior descending artery is moderate in caliber with a proximal 60% stenosis. Posterior AV extension in the right coronary posterolateral branch which was arising from it was all free of significant disease. Left ventricular end diastolic pressure is normal. No significant aortic valve gradient is demonstrated. Final cineangiograms demonstrated no residual stenosis, no uncovered dissection, with VITO grade 3 flow in the circumflex and circumflex posterolateral branch. IMPRESSION: Acute posterior myocardial infarction. Successful percutaneous coronary intervention, drug-eluting stent placement, circumflex and posterolateral branch. RECOMMENDATIONS: Dual antiplatelet therapy for 1 full year.
[2017-12-06] MEDS ORDERED: CARBOHYDRATES FOR HYPOGLYCEMIA PO PRN (15:15)
[2017-12-06] MEDS ORDERED: GLUCOSE 10 TABS/TUBE PO PRN (15:15)
[2017-12-06] MEDS ORDERED: GLUCAGON FOR INJ 1 MG VIAL IM PRN (15:15)
[2017-12-06] MEDS ORDERED: DEXTROSE 50% 50 ML SYR IV PRN (15:15)
[2017-12-06] MEDS ORDERED: GLUCOSE 40% GEL 15 GM TUBE PO PRN (15:15)
--- NOTE | 2017-12-06 15:17 | History and Physical ---
History & Physical Date & Time of Service: Dec 06, 2017 at 15:10 Chief Complaint: Acute Myocardial Infarction Primary Care Physician: RV. Pablo MD History of Present Illness This 62-year-old male is a history of known coronary disease with previous stent placement he developed chest pain and pressure all stretching to go for a walk. The pressure was 8/10 radiate to shoulders and back. The patient began walking and the pain worsened. Patient presented to the emergency department where he had dynamic EKG changes and initial elevated enzyme levels was taken to the cardiac Pond Supervisor where a stent was placed in his circumflex artery. He is recovering in the intensive care unit. His access point was his right groin he has good distal pulses no signs of pseudoaneurysm or bruit at the cath site Past Medical/Surgical History Medical Problems: (1) ACS (acute coronary syndrome) (2) Acute myocardial infarction (3) Anxiety Disorder, Unspecified (4) CAD (coronary artery disease), ne[place] perce coronary artery (5) Cervicalgia (6) Deep vein thrombosis (7) Elevated troponin (8) Gastro-Esophageal Reflux Disease Without Esophagitis (9) Human Immunodeficiency Virus [Hiv] Disease (10) Hyperlipidemia, Unspecified (11) Hypertension (12) Injury of left shoulder (13) Injury of left shoulder (14) Lumbar stenosis (15) Old Myocardial Infarction (16) Polyneuropathy, Unspecified (17) Substernal precordial chest pain (18) Type 2 Diabetes Mellitus Without Complications Surgical Problems: (1) S/P right coronary artery (RCA) stent placement Family History Colon cancer Diabetes mellitus Myocardial infarction Social History Smoking Status: Former Smoker Drug Use: none Marital Status: single Housing status: lives alone Occupational Status: retired Allergies Coded Allergies: Penicillins (Verified Allergy, Mild, RASH, 12/08/16) Home Medications Scheduled Abacavir Sulfate-Lamivudine (Epzicom), 1 TAB PO QAM Aspirin (Aspirin Ec), 81 MG PO HS Atorvastatin (Lipitor), 80 MG PO QAM Clopidogrel Bisulfate (Clopidogrel), 75 MG PO QAM Cyanocobalamin (Vitamin B-12 1000 Mcg), 1,000 MCG SL QAM Darunavir Ethanolate (Prezista), 600 MG PO BID Gabapentin (Neurontin), 600 MG PO TID Isosorbide Mononitrate (Isosorbide Mononitrate ER), 90 MG PO DAILY Lisinopril (Zestril), 2.5 MG PO QAM Metformin Hcl (Glucophage), 500 MG PO BID Omeprazole (Prilosec), 20 MG PO QAM Oxybutynin Chloride (Oxybutynin Chloride ER), 5 MG PO QAM Ritonavir (Norvir), 100 MG PO BID Venlafaxine Hcl (Venlafaxine Hcl Er), 1 TAB PO QAM Scheduled PRN Nitroglycerin (Nitrostat), 0.4 MG SL UD PRN for Chest Pain Review of Systems ROS: well nourished well developed. No double vision blurry vision No problems with speech or swallowing As per HPI No Wheezing or breathing issues No abdominal pain nausea vomiting diarrhea changes in appetite or weight No burning urine urine frequency or changes in color No focal joint pain or muscle pain No skin rashes or oral lesions No unusual bruising or bleeding No focused back pain or numbness or loss of strength No changes in memory or confusion Physical Exam Vital Signs Date Time Temp Pulse Resp B/P (MAP) Pulse Ox O2 Delivery O2 Flow Rate FiO2 12/06/17 15:00 82 12 113/68 (83) 96 Room Air 12/06/17 14:45 72 18 126/71 (89) 96 Room Air 12/06/17 14:30 63 21 113/70 (84) 95 Room Air 12/06/17 14:15 66 18 125/66 (85) 96 Room Air 12/06/17 14:00 36.4 76 15 131/72 (91) 94 Room Air 12/06/17 14:00 36.4 76 15 131/72 Room Air 12/06/17 14:00 76 15 131/72 (91) 94 Room Air 12/06/17 13:45 36.4 64 17 120/72 (88) 96 Room Air 12/06/17 13:35 75 16 128/70 (89) 96 Room Air 12/06/17 13:30 Room Air 12/06/17 13:25 Room Air 12/06/17 13:20 64 16 130/77 (94) 96 Room Air 12/06/17 12:44 96 Room Air 12/06/17 12:44 96 Room Air 12/06/17 12:29 97 Room Air 12/06/17 12:23 88 8/9/18 12:08 36.5 76 20 158/85 97 Room Air General Appearance: WD/WN, no apparent distress Head: normocephalic, atraumatic Eyes: normal inspection, PERRL, EOMI, sclerae normal Neck: supple, no JVD Respiratory/Chest: chest non-tender, lungs clear, normal breath sounds Cardiovascular: regular rate, rhythm, no murmur Abdomen/GI: normal bowel sounds, non tender, soft, no organomegaly Back: no CVA tenderness, no muscle spasm Extremities/Musculoskelatal: no pedal edema, normal range of motion Neurologic/Psych: alert, oriented x 3 Skin: normal color, warm/dry, no rash Diagnostics Laboratory Results Results Past 24 Hours Test 12/06/17 12:30 12/06/17 12:32 12/06/17 13:00 12/06/17 13:17 Range/Units White Blood Count 6.26 4.8-10.8 K/uL Red Blood Count 3.98 4.7-6.1 M/uL Hemoglobin 13.4 14.0-18.0 g/dL Hematocrit 37.8 42-52 % Mean Corpuscular Volume 95.0 80-100 fL Mean Corpuscular Hemoglobin 33.7 25-34 pg Mean Corpuscular Hemoglobin Concent 35.4 32-36 g/dl Platelet Count 215 130-400 K/uL Mean Platelet Volume 9.5 7.4-10.4 fL Neutrophils (%) (Auto) 50.9 % Lymphocytes (%) (Auto) 32.4 % Monocytes (%) (Auto) 11.8 % Eosinophils (%) (Auto) 3.8 % Basophils (%) (Auto) 0.3 % Neutrophils # (Auto) 3.18 1.4-6.5 K/uL Lymphocytes # (Auto) 2.03 1.2-3.4 K/uL Monocytes # (Auto) 0.74 0.11-0.59 K/uL Eosinophils # (Auto) 0.24 0-0.5 K/uL Basophils # (Auto) 0.02 0-0.2 K/uL RDW Standard Deviation 43.0 36.4-46.3 fL RDW Coefficient of Variation 12.5 11.5-14.5 % Immature Granulocyte % (Auto) 0.8 % Immature Granulocyte # (Auto) 0.05 0.00-0.02 K/uL Prothrombin Time 10.1 9.0-12.0 SECONDS Prothromb Time International Ratio 1.0 0.9-1.1 Activated Partial Thromboplast Time 23.8 21.0-31.0 SECONDS Partial Thromboplastin Ratio 0.9 Sodium Level 140 136-145 mmol/L Potassium Level 3.9 3.5-5.1 mmol/L Chloride Level 109 98-107 mmol/L Carbon Dioxide Level 23 21-32 mmol/L Anion Gap 7.0 18.0 16-25 mmol/L Blood Urea Nitrogen 20 7-18 mg/dl Creatinine 0.91 0.60-1.40 mg/dl Est Creatinine Clear Calc Drug Dose 92.7 ml/min Estimated GFR () 102.9 Estimated GFR (Non- 88.8 BUN/Creatinine Ratio 21.5 10-20 Random Glucose 163 70-99 mg/dl Calcium Level 8.9 8.5-10.1 mg/dl Magnesium Level 2.0 1.8-2.4 mg/dl Total Bilirubin 0.2 0.2-1 mg/dl Direct Bilirubin 0.1 0-0.2 mg/dl Aspartate Amino Transf (AST/SGOT) 55 15-37 U/L Alanine Aminotransferase (ALT/SGPT) 67 12-78 U/L Alkaline Phosphatase 79 45-117 U/L Total Creatine Kinase 591 39-308 U/L Creatine Kinase MB 24.0 0.5-3.6 ng/ml Creatine Kinase MB Ratio 4.1 0-3.0 Troponin I 0.223 0-0.045 ng/ml Total Protein 7.8 6.4-8.2 gm/dl Albumin 3.6 3.4-5.0 gm/dl Triglycerides Level 165 0-150 mg/dl Cholesterol Level 83 0-200 mg/dl HDL Cholesterol 23 mg/dl LDL Cholesterol Direct 56 mg/dl LDL Cholesterol, Calculated mg/dl VLDL Cholesterol, Calculated 33 mg/dl Cholesterol/HDL Ratio 3.6 Lipase 475 73-393 U/L Bedside Hemoglobin 12.6 14.0-18.0 g/dl Bedside Hematocrit 37 42-52 % Bedside Sodium 142 135-144 mEq/L Bedside Potassium 3.9 3.3-5.0 mEq/L Bedside Chloride 107 101-112 mEq/L Bedside Total CO2 22 24-31 mEq/l Bedside Blood Urea Nitrogen 20 7-18 mg/dl Bedside Creatinine 0.8 0.6-1.3 mg/dl Bedside Glucose (other) 169 70-99 mg/dl Bedside Ionized Calcium (Aundrea) 1.18 1.12-1.32 mmol/l Kaolin Activated Coagulation Time 158 186 94-140 SECONDS Test 12/06/17 14:34 Range/Units Bedside Glucose 175 70-99 mg/dl Microbiology Results 12/06/17 MRSA DNA Surveillance Screen, Received Pending CXR normal other (Patient inferior lateral EKG changes predominantly lateral ST depression minor inferior ST elevation) Impression Assessment and Plan 62-year-old male presents his acute heart alert with concern for inferior wall STEMI Invasive stenting was placed in the coronary artery the patient be maintained on dual antiplatelet therapy atorvastatin metoprolol lisinopril, patient will continue previously prescribed isosorbide mononitrate 90 For chronic HIV therapy the patient takes GEN V AYA 150-150-200 daily and follows with Dr. Smyth For the patient's polyneuropathy Neurontin 600 3 times daily will be continued For his diabetes metformin will be held given his intravenous Dilaudid insulin sliding scale will be used and a diabetic diet will be pursued Prilosec or substitute be used for GERD Effexor 150 be continued for depression DVT prevention will be heparin therapy which be instituted 12 hours after the cath given the fact that he received anticoagulation during the catheterization Advanced Directives Existing Living Will: Yes Existing Power of Help Desk Supervisor: Yes Resuscitation Status VTE Prophylaxis Will order VTE Prophylaxis: Yes
[2017-12-06] MEDS: INSULIN ASPART 100 UNITS/ML 3 ML PEN SC SCH ×2 (16:00→21:00)
--- NOTE | 2017-12-06 16:03 | CARDIOLOGY CONSULTATION ---
DATE OF CONSULTATION: 12/06/2017 REFERRING PHYSICIAN: Dr. Rasmussen. REASON FOR CONSULTATION: Acute myocardial infarction. CHIEF COMPLAINT ON ADMISSION: Chest pain. HISTORY OF PRESENT ILLNESS: Mr. Bach is a 62-year-old gentleman with a history of coronary artery disease as described below. He was recently evaluated in October for routine cardiology followup with Dr. Hays. At that time, he was feeling well without angina. It had been a year since his last stent implantation. Plavix was discontinued. The patient was feeling well up until this morning when he woke approximately 8:30 a.m. and began experiencing chest pressure and tightness. The pain accelerated and became quite intense. He describes a pressure-like sensation, 8/10 in severity. There was associated shortness of breath and diaphoresis. The pain persisted and became worse with exertion. He came to the Emergency Department and was noted to have diffuse ST depression. Initial troponins were elevated. Due to ongoing symptoms and an abnormal ECG, he was taken to the cardiac catheterization lab emergently. In the lab, he was noted to have patent RCA stents with a subtotal LAD occlusion as well as a severe, acute 99% mid circumflex stenosis in a posterolateral branch. A drug-eluting stent was implanted without complication. The procedure was performed via femoral approach. Currently, the patient is resting comfortably in the intensive care unit. Denies chest pain or shortness of breath. Previously reported tightness and pressure has resolved. He is consuming his midday meal. Plavix has been loaded in the cardiac catheterization lab. Other cardiovascular medications as noted below. Offers no complaints currently. No dysrhythmias on telemetry. REVIEW OF SYSTEMS: The pertinent positive noted above, a comprehensive 10-system review is otherwise negative. PAST MEDICAL HISTORY: 1. Coronary disease with known subtotal mid LAD occlusion with right to left collateral flow, bare metal stenting of the RCA 12/08/2016. 2. Ischemic cardiomyopathy with ejection fraction of 45-50%. 3. Dyslipidemia. 4. Hypertension. 5. Peripheral neuropathy. 6. HPV. 7. HIV 8. DVT. 9. Diabetes. 10. Depression. 11. GERD. PAST SURGICAL HISTORY: 1. Cardiac catheterization as described above x2. 2. Rotator cuff repair. 3. Laminectomy. 4. EGD. 5. Colonoscopy. FAMILY HISTORY: Father with myocardial infarction at age 50, brother with myocardial infarction at age 50. SOCIAL HISTORY: Former tobacco abuse. ALLERGIES: PENICILLIN. CURRENT OUTPATIENT MEDICATIONS: 1. Atorvastatin 80 mg daily. 2. Glipizide 5 mg twice daily. 3. Aspirin 81 mg daily. 4. Nitrostat as needed. 5. Toprol-XL 50 mg daily. 6. Prilosec 20 mg 2 tablets daily. 7. Effexor 150 mg daily. 8. Isosorbide monohydrate 30 mg daily. 9. Prinivil 2.5 mg daily. 10. Meloxicam 15 mg as needed. 11. Ditropan 5 mg daily. ECG ON ADMISSION: Sinus rhythm, anterolateral ST depression. Chest x-ray was not performed on admission. LABORATORY DATA: Troponin 0.223. Sodium 142, potassium 3.9, chloride 107, CO2 of 22, BUN is 20, creatinine 0.8. White blood cell count 6.26, hemoglobin is 12.6, platelet count is 215. INR is 1.0. PHYSICAL EXAMINATION: VITAL SIGNS: Temperature is 36.4 degrees centigrade, pulse 82 beats per minute and regular, respiratory rate 12 breaths per minute, blood pressure 113/68, SaO2 is 96% on room air. GENERAL: NAD, awake, alert and oriented x3. HEENT: His mucous membranes are moist. No scleral icterus. Conjunctivae pink. NECK: Supple without JVD or HJR. No carotid bruit. HEART: Regular with a normal S1 and S2. There is no murmur, rub, gallop. LUNGS: Clear without rales, rhonchi or wheeze. ABDOMEN: Soft, nontender. No rebound or guarding. NEUROLOGIC: Demonstrates no focal deficit. SKIN: The right groin is soft without ecchymosis or hematoma. FINAL IMPRESSION: 1. A 62-year-old male admitted with NSTEMI with 99% mid left posterolateral branch stenosis status post drug-eluting stent implantation with residual subtotal LAD occlusion as well as 60% RCA in-stent restenosis and 60% proximal right posterior descending artery stenosis. 2. Mild ischemic cardiomyopathy, ejection fraction of 45-50% in the past. 3. Dyslipidemia. 4. Hypertension. 5. Former tobacco abuse. PLAN AND RECOMMENDATIONS: The patient will continue dual-antiplatelet therapy for minimum of 1 year uninterrupted. Consider continuing Plavix longer term at this time given recent events with discontinuation of therapy. Isosorbide monohydrate titrated to 90 mg. Continue beta-tony and JEO inhibitor as previously ordered. Diabetes management per internal medicine. Cardiac rehabilitation referral placed. Continue telemetry monitoring. Thank you for allowing me to take part in the care of your patient. BARBARA
--- NOTE | 2017-12-06 16:08 | Critical Care Consultation ---
Critical Care Consultation Date of Consultation: Dec 06, 2017. Attending Physician: Sami Bernabe M.D. Reason for Consultation: Non-ST elevation NV, status post PCI with stenting to the left circumflex branch. History of Present Illness Dear Dr. Bernabe ,Dr. Rasmussen: Thank you very kind referral of Mr. Bach to critical care service. This is 62-year-old gentleman with history of coronary artery disease status post stent placed into the right coronary artery in the past over a year ago, history of hypertension, borderline diabetes, [id number] history of smoking quit over 24 years ago, strong family history as well for coronary artery disease, presented to the hospital with chest discomfort that was started for the past 24 hours. On his arrival to the emergency room, he did have EKG changes noted in the anterior leads. The patient was taken to the [facility] by Dr. Rasmussen and underwent ANUJ 1 placed in posterior branch of the left circumflex artery. Postprocedure, the patient was transferred to the ICU for further monitoring. The procedure went uneventful, and the patient is asymptomatic at the present time. He denies any chest pain, no discomfort, no sore throat, no shortness of breath, no cough no sputum production. No abdominal pain no diarrhea no nausea. Right groin site appeared to be clean without any induration. With good pulsation in the periphery. The rest of his review of system otherwise was unremarkable. Family History Colon cancer Diabetes mellitus Myocardial infarction Social History Smoking Status: Former Smoker Drug Use: none Marital Status: single Housing Status: lives alone Occupation Status: retired Allergies Coded Allergies: Penicillins (Verified Allergy, Mild, RASH, 12/08/16) Home Medications Scheduled Abacavir Sulfate-Lamivudine (Epzicom), 1 TAB PO QAM Aspirin (Aspirin Ec), 81 MG PO HS Atorvastatin (Lipitor), 80 MG PO QAM Clopidogrel Bisulfate (Clopidogrel), 75 MG PO QAM Cyanocobalamin (Vitamin B-12 1000 Mcg), 1,000 MCG SL QAM Darunavir Ethanolate (Prezista), 600 MG PO BID Gabapentin (Neurontin), 600 MG PO TID Isosorbide Mononitrate (Isosorbide Mononitrate ER), 90 MG PO DAILY Lisinopril (Zestril), 2.5 MG PO QAM Metformin Hcl (Glucophage), 500 MG PO BID Omeprazole (Prilosec), 20 MG PO QAM Oxybutynin Chloride (Oxybutynin Chloride ER), 5 MG PO QAM Ritonavir (Norvir), 100 MG PO BID Venlafaxine Hcl (Venlafaxine Hcl Er), 1 TAB PO QAM Scheduled PRN Nitroglycerin (Nitrostat), 0.4 MG SL UD PRN for Chest Pain Current Inpatient Medications Current Inpatient Medications Medications (Trade) Dose Ordered Sig/Margot Route Start Time Stop Time Status Last Admin Dose Admin Nitroglycerin (Nitrostat Tab) 0.4 mg UD PRN SL 12/06/17 13:30 01/05/18 13:29 Sodium Chloride 1,000 ml @ 80 mls/hr [id number] IV 12/06/17 13:30 12/06/17 21:29 Atropine Sulfate (Atropine Sulfate 0.1mg/ml Inj) 0.5 mg ONE PRN IV 12/06/17 13:30 01/05/18 13:29 Ondansetron HCl (Zofran Inj) 4 mg Q6H PRN IV 12/06/17 13:30 01/05/18 13:29 Ondansetron HCl 8 mg/Dextrose 54 ml @ 200 mls/hr Q6H PRN IV 12/06/17 13:30 01/05/18 13:29 Aspirin (Ecotrin Tab) 81 mg QAM PO 12/07/17 09:00 01/06/18 08:59 Clopidogrel Bisulfate (plAVix TAB) 75 mg QAM PO 12/07/17 09:00 01/06/18 08:59 Metoprolol Tartrate (Lopressor Tab) 25 mg Q12 PO 12/06/17 21:00 01/05/18 20:59 Lisinopril (Zestril Tab) 5 mg QAM PO 12/07/17 09:00 01/06/18 08:59 Acetaminophen (Tylenol Tab) 650 mg Q4H PRN PO 12/06/17 13:30 01/05/18 13:29 Morphine Sulfate (MoRPHine SULFATE INJ) 2 mg Q5M PRN IV 12/06/17 13:30 12/20/17 13:29 Atorvastatin Calcium (Lipitor Tab) 80 mg QAM PO 12/07/17 09:00 01/06/18 08:59 Gabapentin (Neurontin Tab) 600 mg TID PO 12/06/17 14:00 01/05/18 13:59 Isosorbide Mononitrate (Imdur Ext Rel Tab) 90 mg DAILY PO 12/07/17 09:00 01/06/18 08:59 Oxybutynin Chloride (Ditropan-Xl Tab) 5 mg QAM PO 12/07/17 09:00 01/06/18 08:59 Venlafaxine HCl (effeXOR EXTENDED REL CAP) 150 mg QAM PO 12/07/17 09:00 01/06/18 08:59 Pantoprazole Sodium (Protonix Tab) 40 mg QAM PO 12/07/17 09:00 01/06/18 08:59 Insulin Aspart (novoLOG ASPART) SLIDING SCALE PARAMETER ACHS SC 12/06/17 16:00 01/05/18 15:59 Glucose (Glucose 40% Gel) 15-30 GRAMS 15 GRAMS... UD PRN PO 12/06/17 15:15 01/05/18 15:14 Glucose (Glucose Chew Tab) 4-8 Tablets 4 Tabl... UD PRN PO 12/06/17 15:15 01/05/18 15:14 Dextrose (Dextrose 50% 50ML Syringe) 25-50ML 25ML FOR ... UD PRN IV 12/06/17 15:15 01/05/18 15:14 Glucagon (Glucagon Inj) 1 mg UD PRN IM 12/06/17 15:15 01/05/18 15:14 Carbohydrates (Carbohydrates For Hypoglycemia) 15-30 GRAMS 15 grams if BSG 54-69... UD PRN PO 12/06/17 15:15 01/05/18 15:14 Miscellaneous Information (Order Awaiting Action) 1 ea QS N/A 12/06/17 16:00 01/05/18 15:59 Heparin Sodium (Porcine) (Heparin Sq 5000 Unit/0.5ml) 5,000 unit Q12 SQ 12/06/17 21:00 01/05/18 20:59 Review of Systems Constitutional: No fever, No chills, No sweats, No weight loss, No weakness, No fatigue, No problem reported Eyes: No worsening of vision, No eye pain, No redness, No discharge, No diplopia, No problem reported ENT: No hearing loss, No unusual epistaxis, No nasal symptoms, No sore throat, No tinnitus, No dental problems, No trouble swallowing, No problem reported Respiratory: No cough, No sputum, No wheezing, No shortness of breath, No dyspnea on exertion, No dyspnea at rest, No hemoptysis, No problem reported Cardiovascular: + chest pain Abdomen: No pain, No nausea, No vomiting, No diarrhea, No constipation, No GI bleeding, No problem reported Musculoskeletal: No joint pain, No muscle pain, No swelling, No calf pain, No problem reported Genitourinary - Male: No hematuria, No dysuria, No urinary frequency, No urinary urgency, No urinary hesitancy, No urinary retention, No urinary incontinence, No penile discharge, No lesions, No impotence, No problem reported Neurologic: No memory loss, No paralysis, No weakness, No numbness/tingling, No vertigo, No balance problems, No problem reported Psychiatric: No depression symptoms, No anhedonism, No anxiety, No insomnia, No substance abuse, No problem reported Endocrine: No fatigue, No excessive thirst, No excessive urination, No problem reported Integumentary: No rash, No itch, No new/changing skin lesions, No color change , No bleeding, No problem reported Allergic / Immunologic: No environmental allergies, No seasonal allergies, No pet sensitivities, No food allergies, No hives, No frequent infections, No poor healing, No prolonged convalescence, No problem reported Physical Exam Date Time Temp Pulse Resp B/P (MAP) Pulse Ox O2 Delivery O2 Flow Rate FiO2 12/06/17 15:30 64 16 112/72 (85) 96 Room Air 12/06/17 15:00 82 12 113/68 (83) 96 Room Air 12/06/17 14:45 72 18 126/71 (89) 96 Room Air 12/06/17 14:30 63 21 113/70 (84) 95 Room Air 12/06/17 14:15 66 18 125/66 (85) 96 Room Air 12/06/17 14:00 36.4 76 15 131/72 (91) 94 Room Air 12/06/17 14:00 36.4 76 15 131/72 Room Air 12/06/17 14:00 76 15 131/72 (91) 94 Room Air 12/06/17 13:45 36.4 64 17 120/72 (88) 96 Room Air 12/06/17 13:35 75 16 128/70 (89) 96 Room Air 12/06/17 13:30 Room Air 12/06/17 13:25 Room Air 12/06/17 13:20 64 16 130/77 (94) 96 Room Air 12/06/17 12:44 96 Room Air 12/06/17 12:44 96 Room Air 12/06/17 12:29 97 Room Air 12/06/17 12:23 88 12/06/17 12:08 36.5 76 20 158/85 97 Room Air General Appearance: no apparent distress Eyes: no discharge, EOMI ENT: normal throat exam Neck: trachea midline Respiratory: breath sounds normal Cardiovasular: regular rate/rhythm, normal S1S2, no M/G/R Abdomen: non tender, no masses, no guarding Lower Extremities: no edema, other (Good pulses in the periphery.) Neuro: alert, oriented x 3, normal motor exam, normal cerebellar exam Psychiatric: normal affect Laboratory Results Last 24 Hours Test 12/06/17 12:30 12/06/17 12:32 12/06/17 13:00 12/06/17 13:17 White Blood Count 6.26 K/uL Red Blood Count 3.98 M/uL Hemoglobin 13.4 g/dL Hematocrit 37.8 % Mean Corpuscular Volume 95.0 fL Mean Corpuscular Hemoglobin 33.7 pg Mean Corpuscular Hemoglobin Concent 35.4 g/dl Platelet Count 215 K/uL Mean Platelet Volume 9.5 fL Neutrophils (%) (Auto) 50.9 % Lymphocytes (%) (Auto) 32.4 % Monocytes (%) (Auto) 11.8 % Eosinophils (%) (Auto) 3.8 % Basophils (%) (Auto) 0.3 % Neutrophils # (Auto) 3.18 K/uL Lymphocytes # (Auto) 2.03 K/uL Monocytes # (Auto) 0.74 K/uL Eosinophils # (Auto) 0.24 K/uL Basophils # (Auto) 0.02 K/uL RDW Standard Deviation 43.0 fL RDW Coefficient of Variation 12.5 % Immature Granulocyte % (Auto) 0.8 % Immature Granulocyte # (Auto) 0.05 K/uL Prothrombin Time 10.1 SECONDS Prothromb Time International Ratio 1.0 Activated Partial Thromboplast Time 23.8 SECONDS Partial Thromboplastin Ratio 0.9 Sodium Level 140 mmol/L Potassium Level 3.9 mmol/L Chloride Level 109 mmol/L Carbon Dioxide Level 23 mmol/L Anion Gap 7.0 mmol/L 18.0 mmol/L Blood Urea Nitrogen 20 mg/dl Creatinine 0.91 mg/dl Est Creatinine Clear Calc Drug Dose 92.7 ml/min Estimated GFR () 102.9 Estimated GFR (Non- 88.8 BUN/Creatinine Ratio 21.5 Random Glucose 163 mg/dl Calcium Level 8.9 mg/dl Magnesium Level 2.0 mg/dl Total Bilirubin 0.2 mg/dl Direct Bilirubin 0.1 mg/dl Aspartate Amino Transf (AST/SGOT) 55 U/L Alanine Aminotransferase (ALT/SGPT) 67 U/L Alkaline Phosphatase 79 U/L Total Creatine Kinase 591 U/L Creatine Kinase MB 24.0 ng/ml Creatine Kinase MB Ratio 4.1 Troponin I 0.223 ng/ml Total Protein 7.8 gm/dl Albumin 3.6 gm/dl Triglycerides Level 165 mg/dl Cholesterol Level 83 mg/dl HDL Cholesterol 23 mg/dl LDL Cholesterol Direct 56 mg/dl LDL Cholesterol, Calculated mg/dl VLDL Cholesterol, Calculated 33 mg/dl Cholesterol/HDL Ratio 3.6 Lipase 475 U/L Bedside Hemoglobin 12.6 g/dl Bedside Hematocrit 37 % Bedside Sodium 142 mEq/L Bedside Potassium 3.9 mEq/L Bedside Chloride 107 mEq/L Bedside Total CO2 22 mEq/l Bedside Blood Urea Nitrogen 20 mg/dl Bedside Creatinine 0.8 mg/dl Bedside Glucose (other) 169 mg/dl Bedside Ionized Calcium (Aundrea) 1.18 mmol/l Kaolin Activated Coagulation Time 158 SECONDS 186 SECONDS Test 12/06/17 14:34 Bedside Glucose 175 mg/dl Diagnostic Results All labs were reviewed as above. Slight elevation in the troponin. Borderline hematocrit. Assessment & Plan 1. Coronary artery disease, non-ST elevation NV, ANUJ placed to the LCx branch. 2. History of ANUJ placed in the RCA. A year ago. Followed by Dr. Hays. 3. History of HIV, last viral load is not available to me, on antiretroviral therapy, no recent infectious process or history of opportunistic infection. 4. History of hypertension, hyperlipidemia, peripheral neuropathy. Plan: 1. Post PCI care per cardiology, appreciate input. Patient also was seen by Dr. Beauchamp, input appreciated. 2. Appreciate Dr. Rasmussen from interventional cardiology. 3. Resume his current medications including antiretroviral therapy. 4. Oral intake. 5. Monitor in ICU. 6. Continue with antiplatelet therapy, beta-tony, statin, JOE inhibitors. Discussed with Dr. Bernabe, appreciate his input. Discussed with the staff on rounds and details, CCT was 35 minutes.
[2017-12-06] MEDS: GABAPENTIN 600 MG TAB PO SCH ×2 (16:12→21:26)
[2017-12-06] MEDS ORDERED: NON-FORMULARY MEDICATION (Ritonavir (Norvir) 100 MG) PO SCH (21:00)
[2017-12-06] MEDS ORDERED: DARUNAVIR ETHANOLATE 600 MG PO SCH (21:00)
[2017-12-06] MEDS: METOPROLOL TARTRATE 25 MG TAB PO SCH (21:26)
[2017-12-06] MEDS: HEPARIN SOD 5000 UNIT/0.5 ML CARP SQ SCH (21:30)
[2017-12-07] VITALS (16 sets, daily range): BP systolic 99–128; BP diastolic 56–77; PULSE 63–89; TEMP 36.3–36.8; O2SAT 93–97
[2017-12-07 02:24] LABS: BASO % 0.5 %; BASO ABS # 0.04 K/uL (0-0.2); EOS % 4.1 %; EOS ABS # 0.32 K/uL (0-0.5); HEMATOCRIT 38.1 % (42-52); HEMOGLOBIN 13.1 g/dL (14.0-18.0); IG# 0.05 K/uL (0.00-0.02); LYMPH % 30.6 %; MEAN CELL VOLUME 96.2 fL (80-100); MEAN CORPUSCULAR HEMOGLOBIN 33.1 pg (25-34); MEAN CORPUSCULAR HGB CONC 34.4 g/dl (32-36); MEAN PLATELET VOLUME 9.5 fL (7.4-10.4); MONO % 15.4 %; MONO ABS # 1.21 K/uL (0.11-0.59); NEUT % 48.8 %; NEUT ABS # 3.82 K/uL (1.4-6.5); PLATELET COUNT 169 K/uL (130-400); RED CELL DISTRIBUTION WIDTH CV 12.5 % (11.5-14.5); RED CELL DISTRIBUTION WIDTH SD 43.9 fL (36.4-46.3); WHITE BLOOD COUNT 7.84 K/uL (4.8-10.8)
[2017-12-07 02:59] LABS: CALCIUM 8.3 mg/dl (8.5-10.1); CREATININE 0.96 mg/dl (0.60-1.40); POTASSIUM 4.3 mmol/L (3.5-5.1)
[2017-12-07] MEDS: INSULIN ASPART 100 UNITS/ML 3 ML PEN SC SCH ×4 (07:15→20:32)
[2017-12-07] MEDS: ASPIRIN 81 MG ECTAB PO SCH (08:25)
[2017-12-07] MEDS: OXYBUTYNIN CHLORIDE 5 MG TABCR PO SCH (08:25)
[2017-12-07] MEDS: VENLAFAXINE HCL XR 150 MG CAPXR PO SCH (08:26)
[2017-12-07] MEDS: ATORVASTATIN 40 MG TAB PO SCH (08:36)
[2017-12-07] MEDS: GABAPENTIN 600 MG TAB PO SCH ×3 (08:37→20:34)
[2017-12-07] MEDS: CLOPIDOGREL BISULFATE 75 MG TAB PO SCH (08:37)
[2017-12-07] MEDS: PANTOprazole SOD 40 MG TAB PO SCH (08:37)
[2017-12-07] MEDS: METOPROLOL TARTRATE 25 MG TAB PO SCH ×2 (08:37→20:34)
[2017-12-07] MEDS: LISINOPRIL 5 MG TAB PO SCH (08:38)
[2017-12-07] MEDS: HEPARIN SOD 5000 UNIT/0.5 ML CARP SQ SCH ×2 (08:39→20:38)
[2017-12-07] MEDS: ELVITEGRAVIR COBICISTAT EMTRIC PO SCH (08:41)
[2017-12-07] MEDS ORDERED: ISOSORBIDE MONONITRATE 30 MG TABCR PO SCH (09:00)
[2017-12-07] MEDS ORDERED: [UNRECOGNIZED DRUG - OTHER] PO SCH (09:00)
[2017-12-07] MEDS ORDERED: LISINOPRIL 2.5 MG TAB PO SCH (09:00)
[2017-12-07] MEDS ORDERED: ELVI1TAB6 PO (09:38)
[2017-12-07] MEDS ORDERED: CHOL20007 PO (10:00)
[2017-12-07] MEDS ORDERED: ATOR-26 PO (10:03)
--- NOTE | 2017-12-07 10:04 | Progress Note ---
Subjective Date of Service: Dec 07, 2017. Subjective this pt is having no complaints today, he only feels tired has no pain at cath site Problem List Medical Problems: (1) ACS (acute coronary syndrome) Status: Acute (2) Anxiety Disorder, Unspecified Status: Chronic (3) Cervicalgia Status: Chronic (4) Elevated troponin Status: Acute (5) Gastro-Esophageal Reflux Disease Without Esophagitis Status: Chronic (6) Human Immunodeficiency Virus [Hiv] Disease Status: Chronic (7) Hyperlipidemia, Unspecified Status: Chronic (8) Hypertension Status: Chronic (9) Lumbar stenosis Status: Chronic (10) Old Myocardial Infarction Status: Chronic (11) Polyneuropathy, Unspecified Status: Chronic (12) STEMI (ST elevation myocardial infarction) Status: Acute (13) Substernal precordial chest pain Status: Acute (14) Type 2 Diabetes Mellitus Without Complications Status: Chronic Surgical Problems: (1) S/P right coronary artery (RCA) stent placement Status: Acute Review of Systems Constitutional: No fever, No chills Respiratory: No cough, No wheezing Cardiac: No chest pain, No orthopnea, No PND, No edema Abdomen: No pain, No nausea, No vomiting, No diarrhea Musculoskeletal: No joint pain, No muscle pain Psychiatric: No depression symptoms, No anhedonism Objective Vital Signs Date Time Temp Pulse Resp B/P (MAP) Pulse Ox O2 Delivery O2 Flow Rate FiO2 12/07/17 09:00 79 22 107/56 (73) 94 Room Air 12/07/17 08:00 36.7 76 25 114/67 (83) 95 Room Air 12/07/17 08:00 Room Air 12/07/17 06:00 67 15 110/74 (86) 93 Room Air 12/07/17 05:00 70 18 108/59 (75) 96 Room Air 12/07/17 04:00 36.5 68 18 111/73 (86) 96 Room Air 12/07/17 03:00 68 25 106/75 (85) 94 Room Air 12/07/17 02:00 63 16 128/72 (90) 97 Room Air 12/07/17 01:00 66 23 128/77 (94) 96 Room Air 12/07/17 00:00 36.5 67 20 121/73 (89) 93 Room Air 12/06/17 23:00 68 14 110/64 (79) 97 Room Air 12/06/17 22:00 60 17 114/66 (82) 98 Room Air 12/06/17 21:00 79 18 121/73 (89) 96 Room Air 12/06/17 20:00 96 Room Air 12/06/17 20:00 36.9 67 18 111/68 (82) 97 Room Air 12/06/17 19:00 69 18 115/70 (85) 96 Room Air 12/06/17 18:30 71 18 113/70 (84) 96 Room Air 12/06/17 18:00 76 20 113/70 (84) 96 Room Air 12/06/17 17:30 69 19 115/59 (77) 96 Room Air 12/06/17 16:30 82 17 125/72 (89) 96 Room Air 12/06/17 16:00 36.6 71 17 125/70 (88) 95 Room Air 12/06/17 16:00 96 Room Air 12/06/17 15:30 64 16 112/72 (85) 96 Room Air 12/06/17 15:00 82 12 113/68 (83) 96 Room Air 12/06/17 14:45 72 18 126/71 (89) 96 Room Air 12/06/17 14:30 63 21 113/70 (84) 95 Room Air 12/06/17 14:15 66 18 125/66 (85) 96 Room Air 12/06/17 14:00 36.4 76 15 131/72 (91) 94 Room Air 12/06/17 14:00 36.4 76 15 131/72 Room Air 12/06/17 14:00 76 15 131/72 (91) 94 Room Air 12/06/17 13:45 36.4 64 17 120/72 (88) 96 Room Air 12/06/17 13:35 75 16 128/70 (89) 96 Room Air 12/06/17 13:30 Room Air 12/06/17 13:25 Room Air 12/06/17 13:20 64 16 130/77 (94) 96 Room Air 12/06/17 12:44 96 Room Air 12/06/17 12:44 96 Room Air 12/06/17 12:29 97 Room Air 12/06/17 12:23 88 12/06/17 12:08 36.5 76 20 158/85 97 Room Air Physical Exam General Appearance: WD/WN, + mild distress Eyes: normal inspection, sclerae normal Neck: supple, no JVD Respiratory/Chest: chest non-tender, lungs clear, normal breath sounds Cardiovascular: regular rate, rhythm, no murmur Abdomen: normal bowel sounds, non tender, soft Extremities: no pedal edema, no calf tenderness Neurologic/Psychiatric: alert, oriented x 3 Laboratory Results Last 24 Hours Test 12/06/17 12:30 12/06/17 12:32 12/06/17 13:00 12/06/17 13:17 White Blood Count 6.26 K/uL Red Blood Count 3.98 M/uL Hemoglobin 13.4 g/dL Hematocrit 37.8 % Mean Corpuscular Volume 95.0 fL Mean Corpuscular Hemoglobin 33.7 pg Mean Corpuscular Hemoglobin Concent 35.4 g/dl Platelet Count 215 K/uL Mean Platelet Volume 9.5 fL Neutrophils (%) (Auto) 50.9 % Lymphocytes (%) (Auto) 32.4 % Monocytes (%) (Auto) 11.8 % Eosinophils (%) (Auto) 3.8 % Basophils (%) (Auto) 0.3 % Neutrophils # (Auto) 3.18 K/uL Lymphocytes # (Auto) 2.03 K/uL Monocytes # (Auto) 0.74 K/uL Eosinophils # (Auto) 0.24 K/uL Basophils # (Auto) 0.02 K/uL RDW Standard Deviation 43.0 fL RDW Coefficient of Variation 12.5 % Immature Granulocyte % (Auto) 0.8 % Immature Granulocyte # (Auto) 0.05 K/uL Prothrombin Time 10.1 SECONDS Prothromb Time International Ratio 1.0 Activated Partial Thromboplast Time 23.8 SECONDS Partial Thromboplastin Ratio 0.9 Sodium Level 140 mmol/L Potassium Level 3.9 mmol/L Chloride Level 109 mmol/L Carbon Dioxide Level 23 mmol/L Anion Gap 7.0 mmol/L 18.0 mmol/L Blood Urea Nitrogen 20 mg/dl Creatinine 0.91 mg/dl Est Creatinine Clear Calc Drug Dose 92.7 ml/min Estimated GFR () 102.9 Estimated GFR (Non- 88.8 BUN/Creatinine Ratio 21.5 Random Glucose 163 mg/dl Calcium Level 8.9 mg/dl Magnesium Level 2.0 mg/dl Total Bilirubin 0.2 mg/dl Direct Bilirubin 0.1 mg/dl Aspartate Amino Transf (AST/SGOT) 55 U/L Alanine Aminotransferase (ALT/SGPT) 67 U/L Alkaline Phosphatase 79 U/L Total Creatine Kinase 591 U/L Creatine Kinase MB 24.0 ng/ml Creatine Kinase MB Ratio 4.1 Troponin I 0.223 ng/ml Total Protein 7.8 gm/dl Albumin 3.6 gm/dl Triglycerides Level 165 mg/dl Cholesterol Level 83 mg/dl HDL Cholesterol 23 mg/dl LDL Cholesterol Direct 56 mg/dl LDL Cholesterol, Calculated mg/dl VLDL Cholesterol, Calculated 33 mg/dl Cholesterol/HDL Ratio 3.6 Lipase 475 U/L Bedside Hemoglobin 12.6 g/dl Bedside Hematocrit 37 % Bedside Sodium 142 mEq/L Bedside Potassium 3.9 mEq/L Bedside Chloride 107 mEq/L Bedside Total CO2 22 mEq/l Bedside Blood Urea Nitrogen 20 mg/dl Bedside Creatinine 0.8 mg/dl Bedside Glucose (other) 169 mg/dl Bedside Ionized Calcium (Aundrea) 1.18 mmol/l Kaolin Activated Coagulation Time 158 SECONDS 186 SECONDS Test 12/06/17 14:34 12/06/17 14:59 12/06/17 16:27 12/06/17 20:02 Bedside Glucose 175 mg/dl 111 mg/dl Urine Color YELLOW Urine Appearance CLEAR Urine pH 5.0 Urine Specific [place] > 1.045 Urine Protein NEG Urine Glucose (UA) NEG Urine Ketones NEG Urine Occult Blood 1+ Urine Nitrite NEG Urine Bilirubin NEG Urine Urobilinogen NEG Urine Leukocyte Esterase NEG Urine WBC (Auto) 1-5 /hpf Urine RBC (Auto) 0-4 /hpf Urine Hyaline Casts (Auto) 0 /lpf Urine Epithelial Cells (Auto) 5-10 /lpf Urine Bacteria (Auto) NEG Troponin I 10.900 ng/ml Test 12/06/17 21:23 12/07/17 02:12 12/07/17 07:26 12/07/17 08:17 Bedside Glucose 119 mg/dl 149 mg/dl White Blood Count 7.84 K/uL Red Blood Count 3.96 M/uL Hemoglobin 13.1 g/dL Hematocrit 38.1 % Mean Corpuscular Volume 96.2 fL Mean Corpuscular Hemoglobin 33.1 pg Mean Corpuscular Hemoglobin Concent 34.4 g/dl Platelet Count 169 K/uL Mean Platelet Volume 9.5 fL Neutrophils (%) (Auto) 48.8 % Lymphocytes (%) (Auto) 30.6 % Monocytes (%) (Auto) 15.4 % Eosinophils (%) (Auto) 4.1 % Basophils (%) (Auto) 0.5 % Neutrophils # (Auto) 3.82 K/uL Lymphocytes # (Auto) 2.40 K/uL Monocytes # (Auto) 1.21 K/uL Eosinophils # (Auto) 0.32 K/uL Basophils # (Auto) 0.04 K/uL RDW Standard Deviation 43.9 fL RDW Coefficient of Variation 12.5 % Immature Granulocyte % (Auto) 0.6 % Immature Granulocyte # (Auto) 0.05 K/uL Sodium Level 137 mmol/L Potassium Level 4.3 mmol/L Chloride Level 107 mmol/L Carbon Dioxide Level 26 mmol/L Anion Gap 4.0 mmol/L Blood Urea Nitrogen 14 mg/dl Creatinine 0.96 mg/dl Est Creatinine Clear Calc Drug Dose 87.8 ml/min Estimated GFR () 96.4 Estimated GFR (Non- 83.2 BUN/Creatinine Ratio 15.0 Random Glucose 137 mg/dl Calcium Level 8.3 mg/dl Troponin I 8.560 ng/ml 4.920 ng/ml Assessment and Plan 62-year-old male presents his acute heart alert with concern for inferior wall STEMI Invasive stenting was placed in the circumflex artery the patient be maintained on dual antiplatelet therapy atorvastatin metoprolol lisinopril, patient will continue previously prescribed isosorbide mononitrate 90, pharmacy is looking into the fact that there maybe some interaction of plavix with some of his other meds, may consider Brillinta For chronic HIV therapy the patient takes GEN V AYA 150-150-200 daily [address] follows with Dr[address] Smyth polyneuropathy Neurontin 600 3 times daily will be continued diabetes metformin will be held given his intravenous Dilaudid insulin sliding scale will be used and a diabetic diet will be pursued Prilosec or substitute be used for GERD, may consider permanent switch to protonix to avoid plavix interaction Effexor 150 be continued for depression DVT prevention will be heparin therapy which be instituted 12 hours after the cath given the fact that he received anticoagulation during the catheterization
[2017-12-07] MEDS ORDERED: VENL225T27 PO (10:05)
[2017-12-07] MEDS ORDERED: METO-217 PO (10:08)
[2017-12-07] MEDS ORDERED: GLIP5TAB11 PO (10:10)
[2017-12-07 10:18] LABS: HEMOGLOBIN A1C 6.8 % (4.5-5.6)
--- NOTE | 2017-12-07 11:02 | Critical Care Progress Note ---
Critical Care Progress Note Date of Service Dec 07, 2017. Attending Dr. Randle Subjective The patient denies any pain, no discomfort, no events overnight, today in the morning he had minimal nausea. No vomiting. No abdominal pain. The rest of his review of system was unremarkable. Objective Physical exam on 12/07/2017 showed well-appearing gentleman, does not appear in any distress, vital signs remained stable, he is on room air at 100%. S1-S2 regular rate and rhythm. Distant breath sounds bilaterally. Abdomen is benign. Right groin. Well-maintained without any induration. Good pulses in the periphery. Labs showed slight elevation in troponin. An EKG changes has not been altered. Assessment & Plan 1. Non-ST elevation IL, status post ANUJ to LCx branch. 2. History of HIV, on triple therapy. 3. History of hypertension and hyperlipidemia. Plan: 1. Continue post cardiac cath care per cardiology. Appreciate input. 2. Antiplatelets, beta blockers, JOE inhibitors, statin. 3. Disposition plan to telemetry. 4. Post-cath echo. 5. No further recommendation from critical care standpoint, case discussed with the staff, discussed with the patient all his questions been answered. Data Medications: Current Inpatient Medications Medications (Trade) Dose Ordered Sig/Margot Route Start Time Stop Time Status Last Admin Dose Admin Nitroglycerin (Nitrostat Tab) 0.4 mg UD PRN SL 12/06/17 13:30 01/05/18 13:29 Atropine Sulfate (Atropine Sulfate 0.1mg/ml Inj) 0.5 mg ONE PRN IV 12/06/17 13:30 01/05/18 13:29 Ondansetron HCl (Zofran Inj) 4 mg Q6H PRN IV 12/06/17 13:30 01/05/18 13:29 Ondansetron HCl 8 mg/Dextrose 54 ml @ 200 mls/hr Q6H PRN IV 12/06/17 13:30 01/05/18 13:29 Aspirin (Ecotrin Tab) 81 mg QAM PO 12/07/17 09:00 01/06/18 08:59 12/07/17 08:25 81 MG Clopidogrel Bisulfate (plAVix TAB) 75 mg QAM PO 12/07/17 09:00 01/06/18 08:59 12/07/17 08:37 75 MG Metoprolol Tartrate (Lopressor Tab) 25 mg Q12 PO 12/06/17 21:00 01/05/18 20:59 12/07/17 08:37 25 MG Lisinopril (Zestril Tab) 5 mg QAM PO 12/07/17 09:00 01/06/18 08:59 12/07/17 08:38 5 MG Acetaminophen (Tylenol Tab) 650 mg Q4H PRN PO 12/06/17 13:30 01/05/18 13:29 Morphine Sulfate (MoRPHine SULFATE INJ) 2 mg Q5M PRN IV 12/06/17 13:30 12/20/17 13:29 Atorvastatin Calcium (Lipitor Tab) 80 mg QAM PO 12/07/17 09:00 01/06/18 08:59 12/07/17 08:36 80 MG Gabapentin (Neurontin Tab) 600 mg TID PO 12/06/17 14:00 01/05/18 13:59 12/07/17 08:37 600 MG Isosorbide Mononitrate (Imdur Ext Rel Tab) 90 mg DAILY PO 12/07/17 09:00 01/06/18 08:59 12/07/17 08:36 90 MG Oxybutynin Chloride (Ditropan-Xl Tab) 5 mg QAM PO 12/07/17 09:00 01/06/18 08:59 12/07/17 08:25 5 MG Venlafaxine HCl (effeXOR EXTENDED REL CAP) 150 mg QAM PO 12/07/17 09:00 01/06/18 08:59 12/07/17 08:26 150 MG Pantoprazole Sodium (Protonix Tab) 40 mg QAM PO 12/07/17 09:00 01/06/18 08:59 12/07/17 08:37 40 MG Insulin Aspart (novoLOG ASPART) SLIDING SCALE PARAMETER ACHS SC 12/06/17 16:00 01/05/18 15:59 Glucose (Glucose 40% Gel) 15-30 GRAMS 15 GRAMS... UD PRN PO 12/06/17 15:15 01/05/18 15:14 Glucose (Glucose Chew Tab) 4-8 Tablets 4 Tabl... UD PRN PO 12/06/17 15:15 01/05/18 15:14 Dextrose (Dextrose 50% 50ML Syringe) 25-50ML 25ML FOR ... UD PRN IV 12/06/17 15:15 01/05/18 15:14 Glucagon (Glucagon Inj) 1 mg UD PRN IM 12/06/17 15:15 01/05/18 15:14 Carbohydrates (Carbohydrates For Hypoglycemia) 15-30 GRAMS 15 grams if BSG 54-69... UD PRN PO 12/06/17 15:15 01/05/18 15:14 Heparin Sodium (Porcine) (Heparin Sq 5000 Unit/0.5ml) 5,000 unit Q12 SQ 12/06/17 21:00 01/05/18 20:59 12/07/17 08:39 5,000 UNIT Elvitegravir/ Cobicis/Emtricit/ Tenof (Genvoya 120-129-847-10 Mg) 1 tab DAILY PO 12/07/17 09:00 01/06/18 08:59 12/07/17 08:41 1 TAB Vital Signs: Date Time Temp Pulse Resp B/P (MAP) Pulse Ox O2 Delivery O2 Flow Rate FiO2 12/07/17 10:43 36.7 79 22 94 12/07/17 09:00 79 22 107/56 (73) 94 Room Air 12/07/17 08:00 36.7 76 25 114/67 (83) 95 Room Air 12/07/17 08:00 Room Air 12/07/17 06:00 67 15 110/74 (86) 93 Room Air 12/07/17 05:00 70 18 108/59 (75) 96 Room Air 12/07/17 04:00 36.5 68 18 111/73 (86) 96 Room Air 12/07/17 03:00 68 25 106/75 (85) 94 Room Air 12/07/17 02:00 63 16 128/72 (90) 97 Room Air 12/07/17 01:00 66 23 128/77 (94) 96 Room Air 12/07/17 00:00 36.5 67 20 121/73 (89) 93 Room Air 12/06/17 23:00 68 14 110/64 (79) 97 Room Air 12/06/17 22:00 60 17 114/66 (82) 98 Room Air 12/06/17 21:00 79 18 121/73 (89) 96 Room Air 12/06/17 20:00 96 Room Air 12/06/17 20:00 36.9 67 18 111/68 (82) 97 Room Air 12/06/17 19:00 69 18 115/70 (85) 96 Room Air 12/06/17 18:30 71 18 113/70 (84) 96 Room Air 12/06/17 18:00 76 20 113/70 (84) 96 Room Air 12/06/17 17:30 69 19 115/59 (77) 96 Room Air 12/06/17 16:30 82 17 125/72 (89) 96 Room Air 12/06/17 16:00 36.6 71 17 125/70 (88) 95 Room Air 12/06/17 16:00 96 Room Air 12/06/17 15:30 64 16 112/72 (85) 96 Room Air 12/06/17 15:00 82 12 113/68 (83) 96 Room Air 12/06/17 14:45 72 18 126/71 (89) 96 Room Air 12/06/17 14:30 63 21 113/70 (84) 95 Room Air 12/06/17 14:15 66 18 125/66 (85) 96 Room Air 12/06/17 14:00 36.4 76 15 131/72 (91) 94 Room Air 12/06/17 14:00 36.4 76 15 131/72 Room Air 12/06/17 14:00 76 15 131/72 (91) 94 Room Air 12/06/17 13:45 36.4 64 17 120/72 (88) 96 Room Air 12/06/17 13:35 75 16 128/70 (89) 96 Room Air 12/06/17 13:30 Room Air 12/06/17 13:25 Room Air 12/06/17 13:20 64 16 130/77 (94) 96 Room Air 12/06/17 12:44 96 Room Air 12/06/17 12:44 96 Room Air 12/06/17 12:29 97 Room Air 12/06/17 12:23 88 12/06/17 12:08 36.5 76 20 158/85 97 Room Air Laboratory Results: Last 24 Hours Test 12/06/17 12:30 12/06/17 12:32 12/06/17 13:00 12/06/17 13:17 White Blood Count 6.26 K/uL Red Blood Count 3.98 M/uL Hemoglobin 13.4 g/dL Hematocrit 37.8 % Mean Corpuscular Volume 95.0 fL Mean Corpuscular Hemoglobin 33.7 pg Mean Corpuscular Hemoglobin Concent 35.4 g/dl Platelet Count 215 K/uL Mean Platelet Volume 9.5 fL Neutrophils (%) (Auto) 50.9 % Lymphocytes (%) (Auto) 32.4 % Monocytes (%) (Auto) 11.8 % Eosinophils (%) (Auto) 3.8 % Basophils (%) (Auto) 0.3 % Neutrophils # (Auto) 3.18 K/uL Lymphocytes # (Auto) 2.03 K/uL Monocytes # (Auto) 0.74 K/uL Eosinophils # (Auto) 0.24 K/uL Basophils # (Auto) 0.02 K/uL RDW Standard Deviation 43.0 fL RDW Coefficient of Variation 12.5 % Immature Granulocyte % (Auto) 0.8 % Immature Granulocyte # (Auto) 0.05 K/uL Prothrombin Time 10.1 SECONDS Prothromb Time International Ratio 1.0 Activated Partial Thromboplast Time 23.8 SECONDS Partial Thromboplastin Ratio 0.9 Sodium Level 140 mmol/L Potassium Level 3.9 mmol/L Chloride Level 109 mmol/L Carbon Dioxide Level 23 mmol/L Anion Gap 7.0 mmol/L 18.0 mmol/L Blood Urea Nitrogen 20 mg/dl Creatinine 0.91 mg/dl Est Creatinine Clear Calc Drug Dose 92.7 ml/min Estimated GFR () 102.9 Estimated GFR (Non- 88.8 BUN/Creatinine Ratio 21.5 Random Glucose 163 mg/dl Calcium Level 8.9 mg/dl Magnesium Level 2.0 mg/dl Total Bilirubin 0.2 mg/dl Direct Bilirubin 0.1 mg/dl Aspartate Amino Transf (AST/SGOT) 55 U/L Alanine Aminotransferase (ALT/SGPT) 67 U/L Alkaline Phosphatase 79 U/L Total Creatine Kinase 591 U/L Creatine Kinase MB 24.0 ng/ml Creatine Kinase MB Ratio 4.1 Troponin I 0.223 ng/ml Total Protein 7.8 gm/dl Albumin 3.6 gm/dl Triglycerides Level 165 mg/dl Cholesterol Level 83 mg/dl HDL Cholesterol 23 mg/dl LDL Cholesterol Direct 56 mg/dl LDL Cholesterol, Calculated mg/dl VLDL Cholesterol, Calculated 33 mg/dl Cholesterol/HDL Ratio 3.6 Lipase 475 U/L Bedside Hemoglobin 12.6 g/dl Bedside Hematocrit 37 % Bedside Sodium 142 mEq/L Bedside Potassium 3.9 mEq/L Bedside Chloride 107 mEq/L Bedside Total CO2 22 mEq/l Bedside Blood Urea Nitrogen 20 mg/dl Bedside Creatinine 0.8 mg/dl Bedside Glucose (other) 169 mg/dl Bedside Ionized Calcium (Aundrea) 1.18 mmol/l Kaolin Activated Coagulation Time 158 SECONDS 186 SECONDS Test 12/06/17 14:34 12/06/17 14:59 12/06/17 16:27 12/06/17 20:02 Bedside Glucose 175 mg/dl 111 mg/dl Urine Color YELLOW Urine Appearance CLEAR Urine pH 5.0 Urine Specific [place] > 1.045 Urine Protein NEG Urine Glucose (UA) NEG Urine Ketones NEG Urine Occult Blood 1+ Urine Nitrite NEG Urine Bilirubin NEG Urine Urobilinogen NEG Urine Leukocyte Esterase NEG Urine WBC (Auto) 1-5 /hpf Urine RBC (Auto) 0-4 /hpf Urine Hyaline Casts (Auto) 0 /lpf Urine Epithelial Cells (Auto) 5-10 /lpf Urine Bacteria (Auto) NEG Troponin I 10.900 ng/ml Test 12/06/17 21:23 12/07/17 02:12 12/07/17 07:26 12/07/17 08:17 Bedside Glucose 119 mg/dl 149 mg/dl White Blood Count 7.84 K/uL Red Blood Count 3.96 M/uL Hemoglobin 13.1 g/dL Hematocrit 38.1 % Mean Corpuscular Volume 96.2 fL Mean Corpuscular Hemoglobin 33.1 pg Mean Corpuscular Hemoglobin Concent 34.4 g/dl Platelet Count 169 K/uL Mean Platelet Volume 9.5 fL Neutrophils (%) (Auto) 48.8 % Lymphocytes (%) (Auto) 30.6 % Monocytes (%) (Auto) 15.4 % Eosinophils (%) (Auto) 4.1 % Basophils (%) (Auto) 0.5 % Neutrophils # (Auto) 3.82 K/uL Lymphocytes # (Auto) 2.40 K/uL Monocytes # (Auto) 1.21 K/uL Eosinophils # (Auto) 0.32 K/uL Basophils # (Auto) 0.04 K/uL RDW Standard Deviation 43.9 fL RDW Coefficient of Variation 12.5 % Immature Granulocyte % (Auto) 0.6 % Immature Granulocyte # (Auto) 0.05 K/uL Sodium Level 137 mmol/L Potassium Level 4.3 mmol/L Chloride Level 107 mmol/L Carbon Dioxide Level 26 mmol/L Anion Gap 4.0 mmol/L Blood Urea Nitrogen 14 mg/dl Creatinine 0.96 mg/dl Est Creatinine Clear Calc Drug Dose 87.8 ml/min Estimated GFR () 96.4 Estimated GFR (Non- 83.2 BUN/Creatinine Ratio 15.0 Random Glucose 137 mg/dl Calcium Level 8.3 mg/dl Troponin I 8.560 ng/ml 4.920 ng/ml Estimated Average Glucose 148 mg/dl Hemoglobin A1c 6.8 %
--- NOTE | 2017-12-07 11:13 | ECHOCARDIOGRAM REPORT ---
*NOTICE TO RECEIVING DEMOCRAT AGENCY This information is strictly Confidential and protected under [place] law. [place] law prohibits you from making any further disclosure of this information unless further disclosure is expressly permitted by the written consent of the person to whom it pertains or is authorized by law. A general authorization for the release of medical or other information is not sufficient for this purpose. Hospital accepts no responsibility if the information is made available to any other person, INCLUDING THE PATIENT. Interpretation Summary * Name: CAL STINSON Study Date: 12/07/2017 06:38 AM BP: 110/74 mmHg * [facility] HR: 67 * : 1955 (M/d/yyyy) Gender: Male Height: 73 in * Age: 62 yrs Ethnicity: [place] Weight: 179 lb * Ordering Physician: José Rasmussen * Referring Physician: Self, Referred * Performed By: Wen Bhat RDCS * * Reason For Study: AMI * BSA: 2.1 m2 * The study was technically adequate. * Compared to prior study, changes are noted. * -- Conclusions -- * Ejection Fraction = 50-55%. * Mild hypokinesis of the mid posterior and lateral viveros. * There is mild tricuspid regurgitation. * Grade I diastolic dysfunction, (abnormal relaxation pattern). Procedure Details * A complete two-dimensional transthoracic echocardiogram was performed (2D, M-mode, Doppler and color flow Doppler). Left Ventricle * The left ventricle is normal in size. * There is no thrombus. * There is mild concentric left ventricular hypertrophy. * Left ventricular systolic function is normal. * Ejection Fraction = 50-55%. * Mild hypokinesis of the mid posterior and lateral viveros. Right Ventricle * The right ventricle is normal size. * The right ventricular systolic function is normal as assessed by tricuspid annular plane systolic excursion (TAPSE) (normal >1.5 cm). Atria * The left atrial size is normal. * Right atrial size is normal. * There is no evidence of atrial septal defect, but resolution does not allow assessment for a patent foramen ovale. Mitral Valve * The mitral valve is normal. * There is no mitral valve stenosis. * Significant mitral regurgitation is absent. Tricuspid Valve * The tricuspid valve is normal. * There is no tricuspid stenosis. * There is mild tricuspid regurgitation. * Doppler findings do not suggest pulmonary hypertension. Aortic Valve * The aortic valve is trileaflet. * Aortic valve sclerosis mild, without significant aortic valvular stenosis. * Aortic stenosis is absent. * There is no significant aortic regurgitation. Pulmonic Valve * The pulmonary valve is not well seen, but the Doppler examination is normal without significant regurgitation or stenosis. Great Vessels * The aortic root is normal size. Pericardium/Pleural * There is no pericardial effusion. Great Vessels * Normal inferior vena cava diameter and respiratory variation suggests normal central venous pressure. Left Ventricular Diastolic Function * Grade I diastolic dysfunction, (abnormal relaxation pattern). MMode 2D Measurements and Calculations IVSd 1.4 cm IVSs 1.6 cm LVIDd 4.5 cm LVIDs 3.3 cm LVPWd 1.3 cm LVPWs 1.6 cm IVS/LVPW 1.0 FS 27.8 % EDV(Teich) 94.3 ml ESV(Teich) 43.4 ml EF(Teich) 54.0 % EDV(cubed) 93.4 ml ESV(cubed) 35.2 ml EF(cubed) 62.3 % % IVS thick 18.3 % % LVPW thick 16.3 % LV mass(C)d 237.8 grams LV mass(C)dI 115.8 grams/m\S\2 LV mass(C)s 193.5 grams LV mass(C)sI 94.3 grams/m\S\2 SV(Teich) 50.9 ml SI(Teich) 24.8 ml/m\S\2 SV(cubed) 58.2 ml SI(cubed) 28.4 ml/m\S\2 Ao root diam 3.2 cm Ao root area 8.2 cm\S\2 LA dimension 4.0 cm LA/Ao 1.2 LVAd ap4 29.7 cm\S\2 LVLd ap4 8.9 cm EDV(MOD-sp4) 83.6 ml EDV(sp4-el) 84.3 ml LVAs ap4 18.3 cm\S\2 LVLs ap4 7.5 cm ESV(MOD-sp4) 40.7 ml ESV(sp4-el) 38.1 ml EF(MOD-sp4) 51.3 % EF(sp4-el) 54.8 % LVAd ap2 28.4 cm\S\2 LVLd ap2 8.6 cm EDV(MOD-sp2) 78.2 ml EDV(sp2-el) 79.7 ml LVAs ap2 16.7 cm\S\2 LVLs ap2 7.1 cm ESV(MOD-sp2) 35.7 ml ESV(sp2-el) 33.4 ml EF(MOD-sp2) 54.3 % EF(sp2-el) 58.1 % LVLd %diff -3.47 % EDV(MOD-bp) 82.1 ml LVLs %diff -5.63 % ESV(MOD-bp) 38.9 ml EF(MOD-bp) 52.7 % SV(MOD-sp4) 42.8 ml SI(MOD-sp4) 20.9 ml/m\S\2 SV(MOD-sp2) 42.5 ml SI(MOD-sp2) 20.7 ml/m\S\2 SV(MOD-bp) 43.2 ml SI(MOD-bp) 21.1 ml/m\S\2 SV(sp4-el) 46.2 ml SI(sp4-el) 22.5 ml/m\S\2 SV(sp2-el) 46.3 ml SI(sp2-el) 22.5 ml/m\S\2 Doppler Measurements and Calculations MV E max malka 64.7 cm/sec MV A max malka 72.0 cm/sec MV E/A 0.90 MV dec time 0.29 sec Ao V2 max 118.8 cm/sec Ao max PG 5.6 mmHg Ao max PG (full) 2.7 mmHg LV V1 max PG 3.0 mmHg LV V1 max 86.3 cm/sec TR max malka 184.1 cm/sec
--- NOTE | 2017-12-07 11:59 | Pharmacy Progress Note ---
Pharmacy Progress Note Date of Service Dec 07, 2017. Progress Note Spent 1.5 hours determining and updating patient's home medication list and assessing if changes noted required adjustments to therapy Medication Reconciliation Changes made as compared to admission list * Discontinued medications * Previous medications for HAART * Metformin * New medications * Genvoya (current HIV therapy) * Vitamin D * Metoprolol succinate * Dose changes * Venlafaxine dose increased * Omeprazole dose increased See complete list of updated medications below: Reported Home Medications Medications Dose Route/Sig Max Daily Dose Days Date Category Glucotrol (Glipizide) 5 Mg Tab 1 Tab PO BIDM 12/07/17 Reported Toprol Xl (Metoprolol Succinate) 50 Mg Tabcr 50 Mg PO DAILY 12/07/17 Reported Venlafaxine Hcl Er (Venlafaxine Hcl) 225 Mg Tab 1 Tab PO QAM 12/07/17 Reported Lipitor (Atorvastatin Calcium) 80 Mg Tab 1 Tab PO DAILY 12/07/17 Reported Vitamin D3 (Cholecalciferol) 2,000 Unit Tab 1 Tab PO DAILY 12/07/17 Reported Genvoya 450-957-208-10 mg (Pharjjbfagww-Xtvqrfegpm-Pfwmbr) 1 Tab Tab 1 Tab PO QAM 12/07/17 Reported Nitrostat (Nitroglycerin) 0.4 Mg/1 Tab Subl 0.4 Mg SL UD PRN 12/12/16 Rx Isosorbide Mononitrate ER (Isosorbide Mononitrate) 30 Mg Tabcr 90 Mg PO DAILY 30 12/12/16 Rx Clopidogrel (Clopidogrel Bisulfate) 75 Mg Tab 75 Mg PO QAM 30 12/12/16 Rx Vitamin B-12 1000 Mcg (Cyanocobalamin) 1,000 Mcg Tab 1,000 Mcg PO QAM 12/08/16 Reported Zestril (Lisinopril) 2.5 Mg Tab 2.5 Mg PO QAM 04/04/16 Reported Neurontin (Gabapentin) 600 Mg Tab 600 Mg PO TID 04/04/16 Reported Prilosec (Omeprazole) 20 Mg Capcr 20 Mg PO BID 03/28/16 Reported Aspirin Ec (Aspirin) 81 Mg Tab 81 Mg PO HS 03/28/16 Reported Oxybutynin Chloride ER (Oxybutynin Chloride) 5 Mg Tabcr 5 Mg PO QAM 12/17/15 Reported CYP assessment * Genvoya (HAART regimen) contains cobicistat which is a strong CY inhibitor * Omeprazole inhibits [id number] * Clopidogrel must be metabolized to its active form mainly by [id number] but also by CY * Ticagrelor is extensively metabolized by CY * Prasugrel is metabolized by multiple CYP enzymes (3A4, 2C9, 2C19, 2B6), but inhibitors and inducers of these enzymes are not anticipated to cause a significant interaction * Atorvastatin is extensively metabolized by CY Potential drug-drug interactions * Genvoya will increase exposure to atorvastatin (recommended not to exceed 20 mg daily of atorvastatin while on this combination) * Genvoya *may* decrease activity of clopidogrel, but to a lesser degree than omeprazole * Genvoya is likely to increase exposure to ticagrelor (recommended to avoid use of ticagrelor while on strong 3A4 inhibitors such as cobisistat) * Omeprazole is likely to decrease activity of clopidogrel Prasugrel option as dual-antiplatelet * Patient is >60 kg, <75 years old and has no history of GIB or other bleed listed in H&P- less likely to bleed * No history of TIA/stroke noted (this would be a contraindication to use) * Has a history of previous [place] and of diabetes - patient may benefit from prasugrel as compared to clopidogrel Conclusions r/e antiplatelet therapy * Cobicistat will increase exposure to ticagrelor - not recommended * Cobicistat may or may not decrease effectiveness of clopidogrel * Cobisistat has the potential to affect prasugrel, but this is less likely * Patient may benefit from prasugrel 2nd hx of previous OK and diabetes Recommendations * Clopidogrel or prasugrel may be appropriate for anti-platelet therapy, with risks and benefits to each (see above), but prasugrel may be desirable for this patient - consider switching clopidogrel to prasugrel * Recommend assessment of cost to patient as this can be an expensive medication and patient noted he is not currently taking his macular degeneration medication 2nd cost issues * If clopidogrel is selected as dual-antiplatelet agent, switch omeprazole to pantoprazole as outpatient * Decrease atorvastatin to 20 mg po daily * Add vitamin D 2000 mg po daily to inpatient regimen (home medication) * Increase venlafaxine ER to home dose of 225 mg po daily
--- NOTE | 2017-12-07 13:03 | Cardiology Follow-Up ---
Subjective General Date of Service: Dec 07, 2017. Pt evaluation today including: conversation w/ patient, conversation w/ family , physical exam, chart review, review of studies, review of inpatient medication list History of Present Illness The patient is a 62 year old male seen in follow-up. Denies recurrent chest discomfort or shortness of breath. Reports mild nausea without vomiting. Isosorbide monohydrate titrated to 90 mg, from 30 mg after catheterization. Borderline hypotension noted intermittently. No dysrhythmias on telemetry. Denies orthopnea or PND. No edema or claudication. Offers no other complaints at this time. Allergies Coded Allergies: Penicillins (Verified Allergy, Mild, RASH, 12/08/16) Social History Smoking Status: Former Smoker Hx Tobacco Use In Past Year?: No (QUIT 1994) Hx Alcohol Use - Type And Amou: Yes (OCCASIONAL SOCIAL DRINKER ) Hx Substance Use - Type And Am: No Problem List Medical Problems: (1) ACS (acute coronary syndrome) Status: Acute (2) Anxiety Disorder, Unspecified Status: Chronic (3) Cervicalgia Status: Chronic (4) Elevated troponin Status: Acute (5) Gastro-Esophageal Reflux Disease Without Esophagitis Status: Chronic (6) Human Immunodeficiency Virus [Hiv] Disease Status: Chronic (7) Hyperlipidemia, Unspecified Status: Chronic (8) Hypertension Status: Chronic (9) Lumbar stenosis Status: Chronic (10) Old Myocardial Infarction Status: Chronic (11) Polyneuropathy, Unspecified Status: Chronic (12) STEMI (ST elevation myocardial infarction) Status: Acute (13) Substernal precordial chest pain Status: Acute (14) Type 2 Diabetes Mellitus Without Complications Status: Chronic Surgical Problems: (1) S/P right coronary artery (RCA) stent placement Status: Acute Review of Systems Respiratory: No cough, No sputum, No wheezing, No shortness of breath, No dyspnea at rest, No hemoptysis Cardiac: No chest pain, No orthopnea, No PND, No edema, No palpitations Physical Exam Vital Signs Last Vital Signs Documentation Date Time Temp Pulse Resp B/P (MAP) Pulse Ox O2 Delivery O2 Flow Rate FiO2 12/07/17 12:05 Room Air 12/07/17 12:05 36.7 86 16 109/67 (81) 97 Physical Exam Constitutional: General Apperance: heathly-appearing Level of Distress: NAD Head: normocephalic, atraumatic Neck: supple Lungs: Auscultation: breath sounds normal, no wheezing, no rales/crackles, no rhonchi Cardiovascular: Heart Auscultation: RRR, normal S1, normal S2, no murmurs, no rubs Peripheral Pulses: Radial Pulse: normal on the right Femoral Pulse: normal on the right Musculoskeletal: normal Extremities: no cyanosis, no edema, no clubbing, no ulcers Neurologic: Gait & Station: pertinent finding (No focal motor deficit) Cranial Nerves: grossly intact Assessment and Plan Assessment and Plan FINAL IMPRESSION: 1. NSTEMI with mid LPL stenosis, 99%, status post drug-eluting stent implantation with residual subtotal LAD occlusion (chronic) as well as 60% RCA in-stent restenosis and 60% proximal right posterior descending artery stenosis. 2. Preserved LV systolic function with mild mid lateral and posterior hypokinesis on repeat resting 2D transthoracic echocardiogram performed today 3. Dyslipidemia. 4. Hypertension -borderline hypotension noted with titration of long-acting nitrates 5. Former tobacco abuse. PLAN AND RECOMMENDATIONS: Reduce isosorbide monohydrate 60 mg daily. Continue dual antiplatelet therapy for minimum of 1 year post percutaneous intervention. Other cardiovascular medications including statin, beta-tony, and JOE inhibitor will be continued as previously ordered. Patient may be transferred to the progressive care unit. Plan for discharge in 24-48 hours. Laboratory Results Last 24 Hours Test 12/06/17 13:00 12/06/17 13:17 12/06/17 14:34 12/06/17 14:59 Kaolin Activated Coagulation Time 158 SECONDS 186 SECONDS Bedside Glucose 175 mg/dl Urine Color YELLOW Urine Appearance CLEAR Urine pH 5.0 Urine Specific [place] > 1.045 Urine Protein NEG Urine Glucose (UA) NEG Urine Ketones NEG Urine Occult Blood 1+ Urine Nitrite NEG Urine Bilirubin NEG Urine Urobilinogen NEG Urine Leukocyte Esterase NEG Urine WBC (Auto) 1-5 /hpf Urine RBC (Auto) 0-4 /hpf Urine Hyaline Casts (Auto) 0 /lpf Urine Epithelial Cells (Auto) 5-10 /lpf Urine Bacteria (Auto) NEG Test 12/06/17 16:27 12/06/17 20:02 12/06/17 21:23 12/07/17 02:12 Bedside Glucose 111 mg/dl 119 mg/dl Troponin I 10.900 ng/ml 8.560 ng/ml White Blood Count 7.84 K/uL Red Blood Count 3.96 M/uL Hemoglobin 13.1 g/dL Hematocrit 38.1 % Mean Corpuscular Volume 96.2 fL Mean Corpuscular Hemoglobin 33.1 pg Mean Corpuscular Hemoglobin Concent 34.4 g/dl Platelet Count 169 K/uL Mean Platelet Volume 9.5 fL Neutrophils (%) (Auto) 48.8 % Lymphocytes (%) (Auto) 30.6 % Monocytes (%) (Auto) 15.4 % Eosinophils (%) (Auto) 4.1 % Basophils (%) (Auto) 0.5 % Neutrophils # (Auto) 3.82 K/uL Lymphocytes # (Auto) 2.40 K/uL Monocytes # (Auto) 1.21 K/uL Eosinophils # (Auto) 0.32 K/uL Basophils # (Auto) 0.04 K/uL RDW Standard Deviation 43.9 fL RDW Coefficient of Variation 12.5 % Immature Granulocyte % (Auto) 0.6 % Immature Granulocyte # (Auto) 0.05 K/uL Sodium Level 137 mmol/L Potassium Level 4.3 mmol/L Chloride Level 107 mmol/L Carbon Dioxide Level 26 mmol/L Anion Gap 4.0 mmol/L Blood Urea Nitrogen 14 mg/dl Creatinine 0.96 mg/dl Est Creatinine Clear Calc Drug Dose 87.8 ml/min Estimated GFR () 96.4 Estimated GFR (Non- 83.2 BUN/Creatinine Ratio 15.0 Random Glucose 137 mg/dl Calcium Level 8.3 mg/dl Test 12/07/17 07:26 12/07/17 08:17 12/07/17 11:01 Bedside Glucose 149 mg/dl 134 mg/dl Estimated Average Glucose 148 mg/dl Hemoglobin A1c 6.8 % Troponin I 4.920 ng/ml
[2017-12-07] MEDS: ONDANSETRON INJ 2 MG/ML 2 ML VIAL IV PRN (16:01)
[2017-12-08] MEDS: ONDANSETRON INJ 2 MG/ML 2 ML VIAL IV PRN (04:02)
[2017-12-08 04:04] VITALS: BP 96/66; PULSE 91; TEMP 36.9; O2SAT 93
[2017-12-08] MEDS ORDERED: PSYLLIUM 58.6% PWD PACK S\\F PO ONE (04:18)
[2017-12-08 06:24] LABS: BASO % 0.3 %; BASO ABS # 0.03 K/uL (0-0.2); EOS % 4.4 %; EOS ABS # 0.47 K/uL (0-0.5); HEMATOCRIT 39.4 % (42-52); HEMOGLOBIN 13.4 g/dL (14.0-18.0); IG# 0.08 K/uL (0.00-0.02); LYMPH % 20.9 %; LYMPH ABS # 2.23 K/uL (1.2-3.4); MEAN CELL VOLUME 96.8 fL (80-100); MEAN CORPUSCULAR HEMOGLOBIN 32.9 pg (25-34); MEAN PLATELET VOLUME 9.7 fL (7.4-10.4); MONO ABS # 1.92 K/uL (0.11-0.59); NEUT % 55.7 %; NEUT ABS # 5.96 K/uL (1.4-6.5); PLATELET COUNT 191 K/uL (130-400); RED CELL DISTRIBUTION WIDTH CV 12.4 % (11.5-14.5); RED CELL DISTRIBUTION WIDTH SD 43.6 fL (36.4-46.3); WHITE BLOOD COUNT 10.69 K/uL (4.8-10.8)
[2017-12-08 06:51] LABS: CALCIUM 8.4 mg/dl (8.5-10.1); CREATININE 0.9 mg/dl (0.60-1.40); POTASSIUM 4.1 mmol/L (3.5-5.1)
[2017-12-08 06:59] VITALS: BP 107/54; PULSE 79; TEMP 37; O2SAT 97
[2017-12-08] MEDS: INSULIN ASPART 100 UNITS/ML 3 ML PEN SC SCH (07:00)
[2017-12-08] MEDS ORDERED: PANT40TA2 PO (07:36)
[2017-12-08] MEDS ORDERED: ATOR-54 PO (07:36)
--- NOTE | 2017-12-08 07:37 | Discharge Instructions ---
Discharge Instructions Date of Service Dec 08, 2017. Admission Reason for Admission: Acute Myocardial Infarction Discharge Discharge Diagnosis / Problem: acute NC s/p stent Discharge Goals Goal(s): Diagnostic testing, Therapeutic intervention Activity Recommendations Activity Limitations: as noted below Lifting Limitations: gradually increase as tolerated . Instructions / Follow-Up Instructions / Follow-Up Home Care: * Take your medications exactly as directed. Don't skip doses. * Remember that recovery after a heart attack takes time. Plan to rest for at lease 4-8 weeks while you recover. Then return to normal activity when your doctor says it's okay. * Ask your doctor about joining a heart rehabilitation program. * Tell your doctor if you are feeling depressed. Feelings of sadness are common after a heart attack, but it is important that you speak to someone if you are feeling overwhelmed by these feelings. * If you are having chest pain, call 911 for an ambulance. Do NOT drive yourself to the hospital. * Ask your family members to learn CPR. * Learn to take your own blood pressure and pulse. Keep a record of your results. Ask your doctor when you should seek emergency medical attention. He or she will tell you which blood pressure reading is dangerous. Lifestyle Changes: * Maintain a healthy weight. Get help to lose any extra pounds. * Cut back on salt. * Limit canned, dried, packaged, and fast foods. * Don't add salt to your food. * Season foods with herbs instead of salt when you cook. * Break the smoking habit. Enroll in a stop-smoking program to improve your chances of success. * Limit fatty foods. * Ask your doctor about having your lipid levels checked regularly. * Build up your activity according to your doctor's recommendation. * Ask your doctor when it's okay to resume sexual activity. * Tell your doctor about any erectile dysfunction (ED) medication you are taking. Some ED medications are not safe if you take certain heart medications. * Try to manage stress. Follow Up: It is important for you to keep your follow up appointments with your medical provider. Current Hospital Diet Patient's current hospital diet: Diabetes Type 2 Diet Discharge Diet Recommended Diet: AHA Diet (Heart Healthy) Pending Studies Studies pending at discharge: no Laboratory Results Hemoglobin A1c Test 12/07/17 08:17 Range/Units Estimated Average Glucose 148 mg/dl Hemoglobin A1c 6.8 H 4.5-5.6 % Lipid Panel Test 12/06/17 12:30 Range/Units Triglycerides Level 165 H 0-150 mg/dl Cholesterol Level 83 0-200 mg/dl HDL Cholesterol 23 mg/dl LDL Cholesterol Direct 56 mg/dl Cholesterol/HDL Ratio 3.6 LDL Cholesterol, Calculated mg/dl Medical Emergencies . Who to Call and When: Medical Emergencies: If at any time you feel your situation is an emergency, please call 911 immediately. Call 911 immediately or go to your nearest Emergency Room if you experience any of the following: Warning Signs and Symptoms of a Heart Attack * Chest pain that is not relieved by medication * Shortness of breath . Non-Emergent Contact Non-Emergency issues call your: Drying Frame Operator Call Non-Emergent contact if: temperature is above 101, your pain is not controlled . . "Provider Documentation" section prepared by Sami Bernabe. . AMI Core Measures Reason no ASA as I/P: Treatment provided - N/A Reason no ASA at D/C: Treatment provided - N/A Reason no statin as I/P: Treatment provided - N/A Reason no statin at D/C: Treatment provided - N/A
[2017-12-08] MEDS: HEPARIN SOD 5000 UNIT/0.5 ML CARP SQ SCH (09:00)
[2017-12-08] MEDS ORDERED: ISOSORBIDE MONONITRATE 60 MG TABCR PO SCH (09:00)
[2017-12-08] MEDS: VENLAFAXINE HCL XR 150 MG CAPXR PO SCH (09:19)
[2017-12-08] MEDS: OXYBUTYNIN CHLORIDE 5 MG TABCR PO SCH (09:19)
[2017-12-08] MEDS: ASPIRIN 81 MG ECTAB PO SCH (09:19)
[2017-12-08] MEDS: ATORVASTATIN 40 MG TAB PO SCH (09:20)
[2017-12-08] MEDS: PANTOprazole SOD 40 MG TAB PO SCH (09:20)
[2017-12-08] MEDS: CLOPIDOGREL BISULFATE 75 MG TAB PO SCH (09:20)
[2017-12-08] MEDS: GABAPENTIN 600 MG TAB PO SCH (09:21)
[2017-12-08] MEDS: LISINOPRIL 5 MG TAB PO SCH (09:21)
[2017-12-08] MEDS: METOPROLOL TARTRATE 25 MG TAB PO SCH (09:21)
[2017-12-08] MEDS: ELVITEGRAVIR COBICISTAT EMTRIC PO SCH (09:48)
[2017-12-08 11:18] VITALS: BP 113/68; TEMP 36.7; O2SAT 97
--- NOTE | 2017-12-08 11:34 | PROGRESS NOTE ---
DATE: 12/08/2017 Patient seen and examined. Chart, medications, telemetry reviewed. SUBJECTIVE: Patient feels well, has been ambulatory in room and hallway. Notes no recurrence of chest pain or discomfort, tolerating current medical adjustments. Notes no dizziness or lightheadedness. Right groin access site is healing well. OBJECTIVE: VITAL SIGNS: Heart rate 79, blood pressure is 107/54. NECK: There is no jugular venous distention. No carotid bruits. LUNGS: Clear. CARDIOVASCULAR: Regular with normal S1, S2. There is no murmur or rub. ABDOMEN: Soft, nontender. EXTREMITIES: Without cyanosis or clubbing. Right groin puncture sites without bruit. Extremities are free of edema. IMPRESSION: Patient is a 62-year-old male status post non-ST elevation myocardial infarction with successful coronary intervention, left posterolateral branch with residual coronary disease as previously described and stable class 1-2 angina. PLAN: Continue current medical therapies as prescribed. Outpatient followup as previously arranged.
[2017-12-08 11:51] VITALS: BP 169/53; PULSE 77; TEMP 37.2; O2SAT 98
[2017-12-08 12:23] VITALS: BP 113/68; PULSE 79; TEMP 36.7; O2SAT 97
--- NOTE | 2017-12-08 12:32 | Discharge Summary ---
Discharge Summary Date of Service Dec 08, 2017. Discharge Summary Admission Date: Dec 06, 2017 at 13:35 Discharge Date: Dec 08, 2017 Discharge Disposition: Home Principal Diagnosis: inferior acute TX, s/p circumflex stent Problems/Secondary Diagnoses: (1) Anxiety Disorder, Unspecified Status: Chronic (2) Cervicalgia Status: Chronic (3) Gastro-Esophageal Reflux Disease Without Esophagitis Status: Chronic (4) Human Immunodeficiency Virus [Hiv] Disease Status: Chronic (5) Hyperlipidemia, Unspecified Status: Chronic (6) Hypertension Status: Chronic (7) Lumbar stenosis Status: Chronic (8) Old Myocardial Infarction Status: Chronic (9) Polyneuropathy, Unspecified Status: Chronic (10) Type 2 Diabetes Mellitus Without Complications Status: Chronic Medication Reconciliation New Medications: Atorvastatin (Lipitor) 20 Mg Tab 1 TAB PO DAILY for 90 Days, #90 TAB 1 Refill Pantoprazole (Pantoprazole Sodium) 40 Mg Tab 40 MG PO QAM, #90 TAB 4 Refills Continued Medications: Aspirin (Aspirin Ec) 81 Mg Tab 81 MG PO HS Cholecalciferol (Vitamin D3) 2,000 Unit Tab 1 TAB PO DAILY, TAB Clopidogrel Bisulfate (Clopidogrel) 75 Mg Tab 75 MG PO QAM for 30 Days, #30 TAB Cyanocobalamin (Vitamin B-12 1000 Mcg) 1,000 Mcg Tab 1000 MCG PO QAM, TAB Xnyxkhrmrizs-Itovadhtgw-Ouqjfy (Genvoya [id number] mg) 1 Tab Tab 1 TAB PO QAM Gabapentin (Neurontin) 600 Mg Tab 600 MG PO TID, TAB Glipizide (Glucotrol) 5 Mg Tab 1 TAB PO BIDM Isosorbide Mononitrate (Isosorbide Mononitrate ER) 30 Mg Tabcr 90 MG PO DAILY for 30 Days Lisinopril (Zestril) 2.5 Mg Tab 2.5 MG PO QAM Metoprolol Succinate (Toprol Xl) 50 Mg Tabcr 50 MG PO DAILY, TAB Nitroglycerin (Nitrostat) 0.4 Mg/1 Tab Subl 0.4 MG SL UD PRN for Chest Pain, #50 Oxybutynin Chloride (Oxybutynin Chloride ER) 5 Mg Tabcr 5 MG PO QAM Venlafaxine Hcl (Venlafaxine Hcl Er) 225 Mg Tab 1 TAB PO QAM, TAB Discontinued Medications: Atorvastatin (Lipitor) 80 Mg Tab 1 TAB PO DAILY, TAB Omeprazole (Prilosec) 20 Mg Capcr 20 MG PO BID, CAP Discharge Exam Review of Systems: Constitutional: No fever, No chills Respiratory: No cough, No shortness of breath Cardiovascular: No chest pain, No orthopnea, No edema Abdomen: No pain, No nausea, No diarrhea Physical Exam: General Appearance: WD/WN, no apparent distress Eyes: normal inspection, sclerae normal Neck: supple, no JVD Respiratory/Chest: chest non-tender, lungs clear, normal breath sounds Cardiovascular: regular rate, rhythm, no murmur Abdomen / GI: normal bowel sounds, non tender, soft Extremities: no pedal edema, normal range of motion Neurologic/Psychiatric: alert, oriented x 3 Hospital Course 62-year-old male presents his acute heart alert with concern for inferior wall STEMI Invasive stenting was placed in the circumflex artery the patient be maintained on dual antiplatelet therapy atorvastatin metoprolol lisinopril, patient will continue previously prescribed isosorbide mononitrate 90, pharmacy is looking into the fact that there maybe some interaction of plavix with some of his other meds, recommend continued plavix, change omeprazole to protonix and reduce atorvastatin due to drug interaction For chronic HIV therapy the patient takes GEN V AYA 150-150-200 daily and follows with Dr. Smyth polyneuropathy Neurontin 600 3 times daily will be continued diabetes metformin can be resumed at time of discharge GERD, may consider permanent switch to protonix to avoid plavix interaction Effexor 225 be continued for depression Total Time Spent: Greater than 30 minutes This includes examination of the patient, discharge planning, medication reconciliation, and communication with other providers. Discharge Instructions Please refer to the electronic Patient Visit Report (Discharge Instructions) for additional information.
[2017-12-09] MEDS ORDERED: PSYLLIUM 58.6% PWD PACK S\\F PO SCH (09:00)
== END 2017-12-08 13:48 | disposition home or self-care (01) | DRG 247 ==
LOC: C.EDB 12:08 → ENRESERV 13:23 → C.MSICU 13:35 → ENRESERV 12-07 11:17 → C.2T 12-07 12:08
PROVIDERS: ADMIT Internal Medicine; ATTEND Internal Medicine
PROC: B211110 Fluoroscopy of Multiple Coronary Arteries using Low Osmolar Contrast, Laser Intraoperative (ICD-10-PCS; principal; 2017-12-06 13:10)
PROC: 4A023N7 Measurement of Cardiac Sampling and Pressure, Left Heart, Percutaneous Approach (ICD-10-PCS; principal; 2017-12-06 13:10)
PROC: 027034Z Dilation of Coronary Artery, One Artery with Drug-eluting Intraluminal Device, Percutaneous Approach (ICD-10-PCS; principal; 2017-12-06 13:10)
DX: I21.19 ST elevation (STEMI) myocardial infarction involving other coronary artery of inferior wall (principal); I25.2 Old myocardial infarction; F41.9 Anxiety disorder, unspecified; I25.119 Atherosclerotic heart disease of native coronary artery with unspecified angina pectoris; Z86.718 Personal history of other venous thrombosis and embolism; K21.9 Gastro-esophageal reflux disease without esophagitis; Z21 Asymptomatic human immunodeficiency virus [HIV] infection status; E11.40 Type 2 diabetes mellitus with diabetic neuropathy, unspecified; I10 Essential (primary) hypertension; E78.5 Hyperlipidemia, unspecified; Z80.0 Family history of malignant neoplasm of digestive organs; Z82.49 Family history of ischemic heart disease and other diseases of the circulatory system; Z87.891 Personal history of nicotine dependence; Z88.0 Allergy status to penicillin; Z95.5 Presence of coronary angioplasty implant and graft; Z79.84 Long term (current) use of oral hypoglycemic drugs; I25.5 Ischemic cardiomyopathy

== ENCOUNTER 2021-05-28 11:39 | Observation (INO) ==
[2021-05-28] MEDS ORDERED: ONDANSETRON INJ 2 MG/ML 2 ML VIAL IV STA (11:43)
[2021-05-28] MEDS ORDERED: SODIUM CHLORIDE 0.9% 1000ML 1,000 ML IV STA (11:43)
--- NOTE | 2021-05-28 11:51 | Emergency Department Note ---
Impression & Plan Acute appendicitis, Abdominal pain, acute, right lower quadrant ED Provider Note NAME: CAL STINSON AGE: 65 SEX: M : 1955 ARRIVES VIA: Ambulance INFORMANT: Patient, ED PROVIDER(S): French Granados DO CHIEF COMPLAINT: Abdominal pain HPI: The patient is a 65-year-old male who presented to emergency department by ambulance for evaluation of abdominal pain. The patient describes right lower quadrant abdominal pain which began 4 days ago. He states initially the pain was actually very high and appeared to be in his epigastric and into his chest. He since noticed the pain started moving downward. He notices it now in his right lower quadrant. He states the pain is moderate to severe. He denies having any back pain. He said no dysuria or frequency. He denies having any hematuria. The patient denies having any recent trauma. He is not seen his family doctor for the symptoms. He presented by ambulance because the pain continued to worsen and he was concerned that he could not manage the pain at home. He has been taking his usual outpatient medications. He states the pain is worsened with ambulation as well as palpation over the lower abdomen. The patient denies having any fever or diarrhea. He said no vomiting. ROS: See above HPI for pertinent positives & negatives. A total of 10 systems reviewed and were otherwise negative. PAST MEDICAL HISTORY: See Below PAST SURGICAL HISTORY: See Below FAMILY HISTORY: See Below SOCIAL HISTORY: See Below HOME MEDICATIONS: See Below ALLERGIES: See Below VITALS: See Below PHYSICAL EXAMINATION: GENERAL: Patient is awake alert in no acute distress patient is resting comfortably and showing no signs of anxiety EYES: The conjunctivae are clear. The pupils are round and reactive. EARS, NOSE, MOUTH AND THROAT: The nose is without any evidence of any deformity. NECK: The neck is nontender and supple. RESPIRATORY: Normal respiratory effort is noted there is no evidence of wheezing rhonchi or rales CARDIOVASCULAR: Regular rate and rhythm noted there no murmurs rubs or gallops normal S1 normal S2. GASTROINTESTINAL: The abdomen is soft and mildly distended. There is significant tenderness and guarding in the right lower quadrant. MUSCULOSKELETAL/EXTREMITIES: There is no evidence of gross deformity full range of motion is noted in the hips and shoulders. SKIN: There is no obvious evidence of any rash. There are no petechiae, pallor or cyanosis noted. NEUROLOGIC: Patient is awake alert and oriented x3 MEDICAL DECISION MAKING: The patient is a 65-year-old male who presented to the emergency department for an evaluation of abdominal pain. The patient's history and physical exam appear to be consistent with acute appendicitis. This was confirmed on CAT scan. I discussed the patient's laboratory and radiographic studies with him. I discussed this case with the on-call general surgeon. They have agreed to evaluate the patient in the emergency department for further management and disposition. The patient was treated with IV fluids and IV pain medication. He was feeling much better on subsequent reevaluation. Triage Nursing notes reviewed. Prior medical records reviewed Vital Signs: reviewed and remarkable for elevated blood pressure. Differential diagnosis: Etiologies such as appendicitis, diverticulitis, obstruction, inflammatory bowel disease, renal colic, PUD, biliary pathology, pancreatitis, mesenteric ischemia, aortic pathology, infections, genitourinary, UTI, perforated viscus, as well as others were entertained. ER treatment provided: See below Diagnostics interpreted by me: ECG: EKG was obtained in the emergency department. My interpretation is normal sinus rhythm at 82 bpm. There is no ectopy. There is no acute ST segment abnormalities noted. This was compared to a tracing from April [id number]. No changes were noted. Cardiac Monitoring: An order was placed for continuous cardiac monitoring. The monitor shows a rate of 74 bpm with sinus rhythm. Laboratory studies: As stated above and show below. Imaging studies: See below Consultation(s): I discussed this case with Dr. Huffman who is on-call for general surgery. He will evaluate the patient in the emergency department. Past Med/Surg History Medical History Acute myocardial infarction Basal cell carcinoma Cleft lip Cleft palate Colon polyps Coronary artery disease Deep vein thrombosis Fall 2016 Left Leg with unknown reasoning. Degenerative disc disease, lumbar Depression Gastroesophageal reflux disease Hearing loss Heart attack 2016 & November 2017 Hyperlipidemia Hypertension Idiopathic polyneuropathy Injury of left shoulder Lumbosacral radiculopathy Macular degeneration Mixed conductive and sensorineural hearing loss of left ear with restricted hearing of right ear Osteoarthritis Sensorineural hearing loss of both ears Spinal stenosis Surgical History History of cardiac catheterization History of carpal tunnel release bilateral History of cleft lip cleft lip repair only. History of colonoscopy History of esophagogastroduodenoscopy (EGD) History of heart artery stent total of 3-4 stents. 1-2 stent in 2017 ([facility] 1 stent in Nov 2017 ([facility]), 1 stent Nov 2018 ([facility]) drug eluting stent placed. History of laminectomy History of placement of ear tubes "History of ear pressure equalization tube insertion" History of rotator cuff surgery left History of sinus surgery History of tonsillectomy and adenoidectomy Hx of local excision of skin lesion from Left eyelid Family History Mother Cancer Cardiac disorder Colorectal cancer Father Cardiac disorder Myocardial infarction Brother Diabetes Grandmother (Maternal) Diabetes Denies family history of No pertinent family history Ovarian cancer Prostate cancer Breast cancer Social History Smoking Status: Former smoker Second Hand Exposure: No; Hx Alcohol Use: Yes Alcohol type: beer and wine Hx Substance Use: No Preferred Language: Nauruan Communication Ability: Effective Visual Impairment: No Limitations Hearing Ability: Hard of Hearing Corrosion Control Fitter Required: No Beliefs That Will Affect Care: None marital status: Single Current Living Situation: Alone current occupational status: retired current occupation: Retired Feels Safe at Home: Yes Childhood Exposure to Second-Hand Smoke: No Seatbelt Use: always Do you think of yourself as: lesbian/ulrich/homosexual Assistive Devices: Cane, Denture - Upper and Glasses Allergies Allergies Allergy/AdvReac Type Severity Reaction Status Date / Time Penicillins Allergy Mild RASH Verified 02/16/21 09:57 metformin AdvReac Intermediate Diarrhea Verified 02/16/21 09:57 Home Meds Home Medications Medication Instructions Recorded Confirmed aspirin 81 mg tablet,delayed 81 mg PO HS #30 tab 12/19/18 02/16/21 release cholecalciferol (vitamin D3) 125 5,000 units PO DAILY tab 12/19/18 02/16/21 mcg (5,000 unit) tablet nitroglycerin 0.4 mg sublingual 0.4 mg SL Q5M PRN #30 tab 12/19/18 02/16/21 tablet vit A 7,160 unit-vit C 113 mg-vit tab PO DAILY tab 02/15/21 02/16/21 E 100 hdfr-jeve-reggwx tablet Previous Rx's Medication Instructions Recorded elviteg 150 mg-cob 150 mg-emtricit 1 tab PO QAM #30 tab 12/22/19 200 mg-tenofo alafenam 10 mg tablet (Genvoya) OneTouch UltraSoft Lancets #200 ea NS 01/02/20 (lancets) OneTouch Ultra Blue Test Strip #200 ea NS 08/11/20 (blood sugar diagnostic) OneTouch Ultra2 Meter #1 ea NS 09/13/20 (blood-glucose meter) gabapentin 600 mg tablet 600 mg PO TID #270 tab 10/12/20 metoprolol succinate 50 mg 50 mg PO QAM #90 tab 10/12/20 tablet,extended release 24 hr venlafaxine 225 mg tablet,extended 225 mg PO QAM #90 tab 10/12/20 release 24 hr empagliflozin 25 mg tablet 25 mg PO QAM #90 tab 11/10/20 (Jardiance) isosorbide mononitrate 30 mg 90 mg PO QAM #270 tab 12/07/20 tablet,extended release 24 hr oxybutynin chloride 5 mg 5 mg PO QAM #90 tab 12/07/20 tablet,extended release 24 hr pantoprazole 40 mg tablet,delayed 40 mg PO QAM #90 tab 12/07/20 release atorvastatin 40 mg tablet 40 mg PO HS #90 tab 12/08/20 ezetimibe 10 mg tablet (Zetia) 10 mg PO HS #90 tab 12/08/20 glipizide 10 mg tablet 10 mg PO BID #180 tab 01/06/21 lisinopril 2.5 mg tablet 2.5 mg PO DAILY #90 tab 01/25/21 cyanocobalamin (vitamin B-12) 1,000 mcg PO QAM #30 tab 02/21/21 1,000 mcg tablet (Vitamin B-12) Results & Data (ED) Vital Signs Vital Signs - 24 hr 05/28/21 11:46 05/28/21 11:47 05/28/21 11:50 Temperature Temperature Source Pulse Rate 87 82 88 Pulse Rate from SpO2 Sensor 88 86 88 Respiratory Rate 17 24 12 Respiratory Depth Blood Pressure 135/75 Blood Pressure Mean 95 Pulse Oximetry 94 94 95 Oxygen Delivery Method Sepsis Recent Fever Within 48 Hours Sepsis New/Unexplained Change in Mental Status Sepsis Action Taken by Nursing 05/28/21 12:01 Temperature 37 C Temperature Source Oral Pulse Rate 74 Pulse Rate from SpO2 Sensor Respiratory Rate 14 Respiratory Depth Normal Blood Pressure 154/90 H Blood Pressure Mean 111 Pulse Oximetry 98 Oxygen Delivery Method Room Air Sepsis Recent Fever Within 48 Hours No Sepsis New/Unexplained Change in Mental Status No Sepsis Action Taken by Nursing No Action Required Home Medications Current Medication List: was personally reviewed by me Laboratory Data Attestation: I reviewed the patient's lab results. Result diagrams: 05/28/21 11:57 05/28/21 11:57 Lab Results 05/28/21 Range/Units 11:57 PT 10.5 (9.0-12.0) Seconds INR 1.0 (0.9-1.1) APTT 24.4 (21.0-31.0) Seconds PTT Ratio 0.9 Administered Medications Morphine Sulfate (Morphine Sulfate 4 Mg/Ml 1 Ml Carp\\Vial) 4 mg IV Q15M PRN PRN Reason: Pain Stop: 06/11/21 11:42 Last Admin: 05/28/21 12:23 Dose: 4 mg Documented by: [id number] Discontinued Medications Sodium Chloride (Nss 1000ml) 1,000 mls @ 999 mls/hr IV .Q1H1M STA Stop: 05/28/21 12:43 Last Admin: 05/28/21 12:22 Dose: 999 mls/hr Documented by: [id number] Ioversol (Optiray 320 100ml) 95 ml IV ONCE ONE Stop: 05/28/21 12:10 Last Admin: 05/28/21 12:09 Dose: 95 ml Documented by: [id number] Ondansetron HCl (Ondansetron Inj 2 Mg/Ml 2 Ml Vial) 4 mg IV NOW STA Stop: 05/28/21 11:44 Last Admin: 05/28/21 12:22 Dose: 4 mg Documented by: [id number] Imaging Data Radiologist's Impression: Abdomen/Pelvis CT 05/28/21 11:[address] WITH IV CONTRAST CT DOSE: 469.49 mGy.cm HISTORY: Acute right lower quadrant abdominal pain RLQ Pain TECHNIQUE: Multiaxial CT images of the abdomen and pelvis were performed following the IV administration of 95 cc of Optiray, A dose lowering technique was utilized adhering to the principles of ALARA. COMPARISON STUDY: CT abdomen pelvis 05/20/2019 FINDINGS: Clear lung bases. No pneumatosis or pneumoperitoneum. Extensive coronary artery calcifications. The spleen, pancreas and adrenal glands are unremarkable. Calcifications adjacent to the pancreatic head redemonstrated. Cholelithiasis without CT evidence of acute cholecystitis. Hepatic steatosis. Patent portal vein. There are a few cysts of the kidneys measuring up to 2.9 cm on the right and 6 cm on the left. No hydronephrosis. Unremarkable urinary bladder. Atherosclerosis of the aorta without aneurysm. No adenopathy. Unremarkable IVC. No bowel obstruction. Mild colonic diverticulosis. Mild fecal retention. The appendix is distended, air and fluid-filled measuring up to 1.4 cm transversely and demonstrates periappendiceal telemetry stranding. No evidence of perforation or abscess. Unchanged 2 cm low attenuating presacral lesion with central calcification on image 338 of series 3. Unremarkable soft tissues. No acute fracture. Degenerative changes of the shoulders and spine. IMPRESSION: 1. Findings compatible with acute appendicitis. Air within the appendiceal lumen is suggestive of necrosis. No perforation or abscess. 2. No bowel obstruction. 3. Cholelithiasis. 4. Unchanged 2 cm low attenuating presacral lesion with a central calcification, likely benign. 5. Additional findings as above. ACT 112: Negative or not required by law. The above report was generated using voice recognition software. It may contain grammatical, syntax or spelling errors. Electronically signed by: Nima Stephens M.D. 05/28/2021 12:38 PM Discharge Plan Visit Data Chief Complaint: Abdominal Pain ED Provider: French Granados Discharge Problem: Acute appendicitis, Abdominal pain, acute, right lower quadrant Patient Disposition: Being Evaluated by Surgeon Forms Stand Alone Forms: [facility] [employer] Prescriptions Prescriptions: No Action Genvoya [id number] mg tablet 1 tab PO QAM Qty: 30 RF: 5 (DME) lancets [OneTouch UltraSoft Lancets] [facility] See Dose Instructions .ROUTE .MEDSUPPLY Qty: 200 RF: 3 (DME) OneTouch Ultra Blue Test Strip Strip See Dose Instructions .ROUTE .MEDSUPPLY Qty: 200 RF: 3 (DME) blood-glucose meter [OneTouch Ultra2 Meter] Misc See Rx Instructions .ROUTE .MEDSUPPLY Qty: 1 RF: 0 gabapentin 600 mg tablet 600 mg PO TID Qty: 270 RF: 3 metoprolol succinate 50 mg tablet extended release 24 hr 50 mg PO QAM Qty: 90 RF: 3 venlafaxine 225 mg tablet extended release 24hr 225 mg PO QAM Qty: 90 RF: 3 Jardiance 25 mg tablet 25 mg PO QAM Qty: 90 RF: 3 isosorbide mononitrate 30 mg tablet extended release 24 hr 90 mg PO QAM Qty: 270 RF: 3 oxybutynin chloride 5 mg tablet extended release 24hr 5 mg PO QAM Qty: 90 RF: 3 pantoprazole 40 mg tablet,delayed release (DR/EC) 40 mg PO QAM Qty: 90 RF: 3 atorvastatin 40 mg tablet 40 mg PO HS Qty: 90 RF: 1 ezetimibe [Zetia] 10 mg tablet 10 mg PO HS Qty: 90 RF: 1 glipizide 10 mg tablet 10 mg PO BID Qty: 180 RF: 1 lisinopril 2.5 mg tablet 2.5 mg PO DAILY Qty: 90 RF: 1 cyanocobalamin (vitamin B-12) [Vitamin B-12] 1,000 mcg tablet 1,000 mcg PO QAM Qty: 30 RF: 11 aspirin 81 mg tablet,delayed release (DR/EC) 81 mg PO HS Qty: 30 RF: 0 cholecalciferol (vitamin D3) 5,000 unit tablet 5,000 units PO DAILY RF: 0 nitroglycerin 0.4 mg tablet, sublingual 0.4 mg SL Q5M PRN (Reason: chest pain) Qty: 30 RF: 0 vit A-vit C-vit O-dbmi-gnkasd 7,160-113-100 mres-gt-etrl tablet PO DAILY RF: 0 Referrals Referrals: Wendy Garcia MD [Primary Care Provider] -
[2021-05-28] MEDS ORDERED: OPTIRAY 320 100ml IV ONE (12:09)
[2021-05-28] MEDS: MoRPHine SULFATE 4 MG/ML 1 ML CARP\\VIAL IV PRN ×3 (12:23→17:45)
--- NOTE | 2021-05-28 12:40 | CT Scan Report ---
ABDOMEN AND PELVIS CT WITH IV CONTRAST CT DOSE: 469.49 mGy.cm HISTORY: Acute right lower quadrant abdominal pain RLQ Pain TECHNIQUE: Multiaxial CT images of the abdomen and pelvis were performed following the IV administrat ion of 95 cc of Optiray, A dose lowering technique was utilized adhering to the principles of ALARA. COMPARISON STUDY: CT abdomen pelvis 05/20/2019 FINDINGS: Clear lung bases. No pneumatosis or pneumoperitoneum. Extensive coronary artery calcificati ons. The spleen, pancreas and adrenal glands are unremarkable. Calcifications adjacent to the pancrea tic head redemonstrated. Cholelithiasis without CT evidence of acute cholecystitis. Hepatic steatosis . Patent portal vein. There are a few cysts of the kidneys measuring up to 2.9 cm on the right and 6 cm on the left. No hyd ronephrosis. Unremarkable urinary bladder. Atherosclerosis of the aorta without aneurysm. No adenopat hy. Unremarkable IVC. No bowel obstruction. Mild colonic diverticulosis. Mild fecal retention. The ap pendix is distended, air and fluid-filled measuring up to 1.4 cm transversely and demonstrates periap pendiceal telemetry stranding. No evidence of perforation or abscess. Unchanged 2 cm low attenuating presacral lesion with central calcification on image 338 of series 3. Unremarkable soft tissues. No acute fracture. Degenerative changes of the shoulders and spine. IMPRESSION: 1. Findings compatible with acute appendicitis. Air within the appendiceal lumen is suggestive of nec rosis. No perforation or abscess. 2. No bowel obstruction. 3. Cholelithiasis. 4. Unchanged 2 cm low attenuating presacral lesion with a central calcification, likely benign. 5. Additional findings as above. ACT 112: Negative or not required by law. The above report was generated using voice recognition software. It may contain grammatical, syntax o r spelling errors. Electronically signed by: Nima Stephens M.D. 05/28/2021 12:38 PM
[2021-05-28 12:43] LABS: Partial Thromboplastin Ratio 0.9; Partial Thromboplastin Time 24.4 Seconds (21.0-31.0); Prothrombin Time 10.5 Seconds (9.0-12.0)
[2021-05-28 12:52] LABS: Basophils # (auto) 0.02 K/uL (0-0.2); Basophils % (auto) 0.1 %; Eosinophils # (auto) 0.11 K/uL (0-0.5); Eosinophils % (auto) 0.7 %; Hematocrit (blood only) 43.8 % (42-52); Hemoglobin 15.5 g/dL (14.0-18.0); Immature Granulocytes # (auto) 0.03 K/uL (0.00-0.02); Immature Granulocytes % (auto) 0.2 %; Lymphocytes % (auto) 9.7 %; Mean Corpuscular Hemoglobin 35.1 pg (25-34); Mean Corpuscular Hgb Conc 35.4 g/dL (32-36); Mean Corpuscular Volume 99.1 fL (80-100); Mean Platelet Volume 9.8 fL (7.4-10.4); Monocytes # (auto) 1.98 K/uL (0.11-0.59); Monocytes % (auto) 12.7 %; Neutrophils # (auto) 11.89 K/uL (1.4-6.5); Neutrophils % (auto) 76.6 %; Platelet Count 159 K/uL (130-400); RDW Coefficient of Variation 12.6 % (11.5-14.5); RDW Standard Deviation 45.6 fL (36.4-46.3); Red Blood Count 4.42 M/uL (4.7-6.1); White Blood Count 15.53 K/uL (4.8-10.8)
[2021-05-28 13:14] LABS: Troponin I < 0.03 ng/ml (0-0.04)
[2021-05-28 13:18] LABS: Alanine Aminotransferase 42 U/L (7-52); Albumin Globulin Ratio 1.2 (0.9-2); Albumin Level 4.1 gm/dl (3.4-5.0); Alkaline Phosphatase 63 U/L (34-104); Anion Gap 10 (3-11); Aspartate Aminotransferase 29 U/L (13-39); BUN Creatinine Ratio 17.5 (10-20); Blood Urea Nitrogen 14 mg/dl (6-23); Calcium 9.1 mg/dl (8.5-10.1); Carbon Dioxide 24 mmol/L (21-32); Chloride 102 mmol/L (98-107); Est GFR (African American) 107.1 ml/min; Est GFR (Non-African American) 92.4 ml/min; Globulin 3.3 gm/dl (2.5-4.0); Glucose 160 mg/dl (70-99(Fasting)); Lipase 52 U/L (11-82); Potassium 3.8 mmol/L (3.5-5.1); Sodium 136 mmol/L (136-145); Total Protein 7.4 gm/dl (6.0-8.3)
--- NOTE | 2021-05-28 13:46 | History & Physical Report ---
Date of Service May 28, 2021 Assessment & Plan (1) Acute appendicitis: Plan: Plan is to proceed with laparoscopic appendectomy possible open risk and complication of surgery explained to the patient including bleeding infection injury to other organs and we will proceed accordingly Is an allergy to penicillin just hives and does not remember when the last happened Plan: Patient scheduled for laparoscopic appendectomy possible open Permit was obtained History of Present Illness Chief Complaint: Abdominal pain Primary Care Provider: Wendy Garcia MD This very pleasant 65-year-old gentleman has a 48-hour history of abdominal pain eventually progressed to the right lower quadrant was seen in the emergency room earlier diagnosed with acute appendicitis by CAT scan and chemically Patient denies any fever chills nausea or diarrhea Patient's past medical history is positive for having had a history of colonic polyps and family history of carcinoma in fact his last colonoscopy was 2 years ago and is due to follow-up in the next month or so last colonoscopy had multiple polyps removed that were benign He had a past history of coronary artery disease has had multiple stents not on any anticoagulation followed by cardiology regularly last saw cardiology about a year ago He is quite active rides a bike walks regularly and denies any chest pain or any shortness of breath Allergies Allergy/AdvReac Type Severity Reaction Status Date / Time Penicillins Allergy Mild RASH Verified 02/16/21 09:57 metformin AdvReac Intermediate Diarrhea Verified 02/16/21 09:57 Home Medications Medication Instructions Recorded Confirmed Type aspirin 81 mg tablet,delayed 81 mg PO HS #30 tab 12/19/18 02/16/21 History release cholecalciferol (vitamin D3) 125 5,000 units PO DAILY tab 12/19/18 02/16/21 History mcg (5,000 unit) tablet nitroglycerin 0.4 mg sublingual 0.4 mg SL Q5M PRN #30 tab 12/19/18 02/16/21 History tablet elviteg 150 mg-cob 150 mg-emtricit 1 tab PO QAM #30 tab 12/22/19 02/16/21 Rx 200 mg-tenofo alafenam 10 mg tablet (Genvoya) OneTouch UltraSoft Lancets #200 ea NS 01/02/20 02/16/21 Rx (lancets) OneTouch Ultra Blue Test Strip #200 ea NS 08/11/20 02/16/21 Rx (blood sugar diagnostic) OneTouch Ultra2 Meter #1 ea NS 09/13/20 02/16/21 Rx (blood-glucose meter) gabapentin 600 mg tablet 600 mg PO TID #270 tab 10/12/20 02/16/21 Rx metoprolol succinate 50 mg 50 mg PO QAM #90 tab 10/12/20 02/16/21 Rx tablet,extended release 24 hr venlafaxine 225 mg tablet,extended 225 mg PO QAM #90 tab 10/12/20 02/16/21 Rx release 24 hr empagliflozin 25 mg tablet 25 mg PO QAM #90 tab 11/10/20 02/16/21 Rx (Jardiance) isosorbide mononitrate 30 mg 90 mg PO QAM #270 tab 12/07/20 02/16/21 Rx tablet,extended release 24 hr oxybutynin chloride 5 mg 5 mg PO QAM #90 tab 12/07/20 02/16/21 Rx tablet,extended release 24 hr pantoprazole 40 mg tablet,delayed 40 mg PO QAM #90 tab 12/07/20 02/16/21 Rx release atorvastatin 40 mg tablet 40 mg PO HS #90 tab 12/08/20 02/16/21 Rx ezetimibe 10 mg tablet (Zetia) 10 mg PO HS #90 tab 12/08/20 02/16/21 Rx glipizide 10 mg tablet 10 mg PO BID #180 tab 01/06/21 02/16/21 Rx lisinopril 2.5 mg tablet 2.5 mg PO DAILY #90 tab 01/25/21 02/16/21 Rx vit A 7,160 unit-vit C 113 mg-vit tab PO DAILY tab 02/15/21 02/16/21 History E 100 [id number] tablet cyanocobalamin (vitamin B-12) 1,000 mcg PO QAM #30 tab 02/21/21 Rx 1,000 mcg tablet (Vitamin B-12) Past Med/Surg History Medical History Acute myocardial infarction Basal cell carcinoma Cleft lip Cleft palate Colon polyps Coronary artery disease Deep vein thrombosis Fall 2016 Left Leg with unknown reasoning. Degenerative disc disease, lumbar Depression Gastroesophageal reflux disease Hearing loss Heart attack 2016 & November 2017 Hyperlipidemia Hypertension Idiopathic polyneuropathy Injury of left shoulder Lumbosacral radiculopathy Macular degeneration Mixed conductive and sensorineural hearing loss of left ear with restricted hearing of right ear Osteoarthritis Sensorineural hearing loss of both ears Spinal stenosis Surgical History History of cardiac catheterization History of carpal tunnel release bilateral History of cleft lip cleft lip repair only. History of colonoscopy History of esophagogastroduodenoscopy (EGD) History of heart artery stent total of 3-4 stents. 1-2 stent in 2017 ([facility]), 1 stent in Nov 2017 ([facility]), 1 stent Nov 2018 ([facility]) drug eluting stent placed. History of laminectomy History of placement of ear tubes "History of ear pressure equalization tube insertion" History of rotator cuff surgery left History of sinus surgery History of tonsillectomy and adenoidectomy Hx of local excision of skin lesion from Left eyelid Family History Mother Cancer Cardiac disorder Colorectal cancer Father Cardiac disorder Myocardial infarction Brother Diabetes Grandmother (Maternal) Diabetes Denies family history of No pertinent family history Ovarian cancer Prostate cancer Breast cancer Social History Smoking Status: Former smoker Second Hand Exposure: No; Hx Alcohol Use: Yes Alcohol type: beer and wine Hx Substance Use: No Preferred Language: Maori Communication Ability: Effective Visual Impairment: No Limitations Hearing Ability: Hard of Hearing Cow Washer Required: No Beliefs That Will Affect Care: None marital status: Single Current Living Situation: Alone current occupational status: retired current occupation: Retired Feels Safe at Home: Yes Childhood Exposure to Second-Hand Smoke: No Seatbelt Use: always Do you think of yourself as: lesbian/ulrich/homosexual Assistive Devices: Cane, Denture - Upper and Glasses Physical Exam Physical Exam: Alert coherent wearing hearing aids Sclerae nonicteric There is no cervical lymphadenopathy Lungs clear no wheezing Heart normal sinus rhythm The abdomen and supine examination is minimally distended but exquisite tenderness or rebound the right lower quadrant Do not appreciate any inguinal hernias and testes normally bilateral Results & Data Results & Data ([facility]) Vital Signs (Past 12 Hours) Vital Signs Temp Pulse Resp BP Pulse Ox 05/28/21 12:01 37 C 74 14 154/90 H 98 05/28/21 11:50 88 12 95 05/28/21 11:47 82 24 135/75 94 05/28/21 11:46 87 17 94 Laboratory Results Elevated white count noted Covid test negative Diagnostic Findings Acute appendicitis by CAT scan possibility of rupture PG Care Time/CCT Total # of Minutes Spent Total Time Spent with Patient: Total time spent is greater than 50% in coordination of care (as documented) at patient's floor/unit and/or counseling patient: Coding Level of Care Code 39904 Initial Inpt Care Lvl 3 Diagnoses Acute appendicitis K35.30 Acute appendicitis type: with localized peritonitis Appendicitis abscess presence: unspecified whether abscess present Appendicitis gangrene presence: unspecified whether gangrene present Appendicitis perforation presence: unspecified whether perforation present (1) Acute appendicitis Acute appendicitis type: with localized peritonitis Appendicitis abscess presence: unspecified whether abscess present Appendicitis gangrene presence: unspecified whether gangrene present Appendicitis perforation presence: unspecified whether perforation present Qualified Code(s): K35.30 - Acute appendicitis with localized peritonitis, without perforation or gangrene
[2021-05-28] MEDS ORDERED: cefOXitin 2,000 MG/60 ML BAG IV STA (13:47)
--- NOTE | 2021-05-28 14:31 | Anesthesiology Consultation ---
Date of Service May 28, 2021 Assessment & Plan Chart Review Chart Review: Acceptable Risk for Surgery and Patient NOT seen in Pre Admission Testing Consults Requested none ASA ASA4 Proposed Anesthesia Anesthesia Type: General Additional Comments: covid test neg. History Surgery Operation Date: 05/28/21 16:00 Proposed Procedures p Laparoscopic Appendectomy - David Huffman MD, FACS Height/Weight Weight: 90.718 kg Allergies Allergy/AdvReac Type Severity Reaction Status Date / Time Penicillins Allergy Mild RASH Verified 02/16/21 09:57 metformin AdvReac Intermediate Diarrhea Verified 02/16/21 09:57 Medications Home Medications Medication Instructions Recorded Confirmed Last Taken aspirin 81 mg tablet,delayed 81 mg PO HS #30 tab 12/19/18 02/16/21 Unknown release cholecalciferol (vitamin D3) 125 5,000 units PO DAILY tab 12/19/18 02/16/21 Unknown mcg (5,000 unit) tablet nitroglycerin 0.4 mg sublingual 0.4 mg SL Q5M PRN #30 tab 12/19/18 02/16/21 Unknown tablet elviteg 150 mg-cob 150 mg-emtricit 1 tab PO QAM #30 tab 12/22/19 02/16/21 Unknown 200 mg-tenofo alafenam 10 mg tablet (Genvoya) OneTouch UltraSoft Lancets #200 ea NS 01/02/20 02/16/21 Unknown (lancets) OneTouch Ultra Blue Test Strip #200 ea NS 08/11/20 02/16/21 Unknown (blood sugar diagnostic) OneTouch Ultra2 Meter #1 ea NS 09/13/20 02/16/21 Unknown (blood-glucose meter) gabapentin 600 mg tablet 600 mg PO TID #270 tab 10/12/20 02/16/21 Unknown metoprolol succinate 50 mg 50 mg PO QAM #90 tab 10/12/20 02/16/21 Unknown tablet,extended release 24 hr venlafaxine 225 mg tablet,extended 225 mg PO QAM #90 tab 10/12/20 02/16/21 Unknown release 24 hr empagliflozin 25 mg tablet 25 mg PO QAM #90 tab 11/10/20 02/16/21 Unknown (Jardiance) isosorbide mononitrate 30 mg 90 mg PO QAM #270 tab 12/07/20 02/16/21 Unknown tablet,extended release 24 hr oxybutynin chloride 5 mg 5 mg PO QAM #90 tab 12/07/20 02/16/21 Unknown tablet,extended release 24 hr pantoprazole 40 mg tablet,delayed 40 mg PO QAM #90 tab 12/07/20 02/16/21 Unknown release atorvastatin 40 mg tablet 40 mg PO HS #90 tab 12/08/20 02/16/21 Unknown ezetimibe 10 mg tablet (Zetia) 10 mg PO HS #90 tab 12/08/20 02/16/21 Unknown glipizide 10 mg tablet 10 mg PO BID #180 tab 01/06/21 02/16/21 Unknown lisinopril 2.5 mg tablet 2.5 mg PO DAILY #90 tab 01/25/21 02/16/21 Unknown vit A 7,160 unit-vit C 113 mg-vit tab PO DAILY tab 02/15/21 02/16/21 Unknown E 100 [id number]-[id number]-dlovln tablet cyanocobalamin (vitamin B-12) 1,000 mcg PO QAM #30 tab 02/21/21 Unknown 1,000 mcg tablet (Vitamin B-12) Active Medications Generic Name Dose Route Start Last Admin Trade Name Freq PRN Reason Stop Dose Admin Morphine Sulfate 4 mg 05/28/21 11:43 05/28/21 12:23 Morphine Sulfate 4 Mg/Ml 1 Ml Carp\\Vial IV 06/11/21 11:42 4 mg Q15M PRN Administration Pain Past Medical History Medical History Acute myocardial infarction Basal cell carcinoma Cleft lip Cleft palate Colon polyps Coronary artery disease Deep vein thrombosis Fall 2016 Left Leg with unknown reasoning. Degenerative disc disease, lumbar Depression Gastroesophageal reflux disease Hearing loss Heart attack 2016 & November 2017 Hyperlipidemia Hypertension Idiopathic polyneuropathy Injury of left shoulder Lumbosacral radiculopathy Macular degeneration Mixed conductive and sensorineural hearing loss of left ear with restricted hearing of right ear Osteoarthritis Sensorineural hearing loss of both ears Spinal stenosis Exercise / Class Metabolic Activity III < 4 Walking/Shop/Light housework Past Family History Family History Mother Cancer Cardiac disorder Colorectal cancer Father Cardiac disorder Myocardial infarction Brother Diabetes Grandmother (Maternal) Diabetes Denies family history of No pertinent family history Ovarian cancer Prostate cancer Breast cancer Past Surgical History Surgical History History of cardiac catheterization History of carpal tunnel release bilateral History of cleft lip cleft lip repair only. History of colonoscopy History of esophagogastroduodenoscopy (EGD) History of heart artery stent total of 3-4 stents. 1-2 stent in 2016 ([facility]), 1 stent in Nov 2017 ([facility]), 1 stent Nov 2018 ([facility]) drug eluting stent placed. History of laminectomy History of placement of ear tubes "History of ear pressure equalization tube insertion" History of rotator cuff surgery left History of sinus surgery History of tonsillectomy and adenoidectomy Hx of local excision of skin lesion from Left eyelid Past Anesthesia History No Hx of Anesthesia Complications and No Family Hx of Anesthesia Complications History of PONV No Hx of PONV and No Hx of Motion Sickness Social History Smoking Status: Former smoker tobacco type: cigarettes Hx Alcohol Use: Yes Alcohol type: beer and wine alcohol intake frequency: a few times a week Hx Substance Use: No substance use type: does not use Physical Exam Vital Signs Last Vital Signs Temp 37 C 05/28/21 12:01 Pulse 74 05/28/21 12:01 Resp 14 05/28/21 12:01 BP 154/90 H 05/28/21 12:01 Pulse Ox 98 05/28/21 12:01 Testing Laboratory Results 05/28/21 11:57 05/28/21 11:57 PT 10.5 Seconds (9.0-12.0) 05/28/21 11:57 INR 1.0 (0.9-1.1) 05/28/21 11:57 APTT 24.4 Seconds (21.0-31.0) 05/28/21 11:57 Electrocardiogram Findings: + NSR @ (at 82) Echocardiogram Date: 12/07/17 EF: 50% LV Function: normal (low) RWMA: + hypokinetic (mild HK tomid-posterior and lateral viveros) Other Findings: + diastolic dysfunction (Grade 1) Valvular Disease: + no significant valvular disease Cardiac Catheterization Date: 12/16/18 Findings: + RCA (distal RCA to RPA 70% w/ ANUJ) and + LMA (mid LAD w/ chronic total occlusion w/ R to L collaterals)
[2021-05-28] MEDS ORDERED: PROPOFOL IV EMULSION 10 MG/ML 20 ML VIAL IV ONE (18:18)
[2021-05-28] MEDS ORDERED: MIDAZOLAM HCL 1 MG/ML 2ML VIAL ONE (18:19)
[2021-05-28] MEDS ORDERED: fentaNYL citrate 100 MCG/2 ML VIAL ONE ×2 (18:20→18:48)
[2021-05-28] MEDS ORDERED: LIDOCAINE/EPINEPHRINE 1% 20 ML VIAL ONE (18:46)
[2021-05-28] MEDS ORDERED: CISATRACURIUM BESYLATE IV SOLN 2 MG/ML 10 ML VIAL IV ONE (18:57)
[2021-05-28] MEDS ORDERED: SUCCINYLCHOLINE 100MG/5ML SYR IV ONE (18:57)
[2021-05-28] MEDS ORDERED: ONDANSETRON INJ 2 MG/ML 2 ML VIAL ONE (19:16)
[2021-05-28] MEDS ORDERED: fentaNYL citrate 100 MCG/2 ML VIAL IV PRN (19:19)
[2021-05-28] MEDS ORDERED: NALOXONE HCL 0.4 MG/1 ML VIAL/CARP IV PRN (19:19)
[2021-05-28] MEDS ORDERED: ePHEDrine sulfate 50 MG/ML AMP IV PRN (19:19)
[2021-05-28] MEDS ORDERED: LABETALOL HCL IV 5 MG/ML 20ML IV PRN (19:19)
[2021-05-28] MEDS ORDERED: FLUMAZENIL 0.1 MG/1 ML 10 ML VIAL IV PRN (19:19)
[2021-05-28] MEDS ORDERED: HYDROmorphone INJ 1 MG/ML SYRINGE IV PRN (19:19)
[2021-05-28] MEDS ORDERED: ONDANSETRON INJ 2 MG/ML 2 ML VIAL IV PRN ×2 (19:19→21:10)
[2021-05-28] MEDS ORDERED: ATROPINE SULFATE 0.1 MG/ML 10ML SYR IV PRN (19:19)
[2021-05-28] MEDS ORDERED: PROMETHAZINE HCL 12.5 MG in SODIUM CHLORIDE 0.9% 50 ML IV PRN (19:19)
[2021-05-28] MEDS ORDERED: GLYCOPYRROLATE 0.2 MG/ML VIAL ONE ×2 (19:32→19:33)
[2021-05-28] MEDS ORDERED: NEOSTIGMINE METHYLSULFATE 1 MG/ML 10ML VIAL ONE (19:32)
--- NOTE | 2021-05-28 19:42 | Post Operative Brief Note ---
PG Immediate Post Op with CF Date of Surgery May 28, 2021 Pre & Post Diagnosis Operation Date: 05/28/21 16:00 Pre-Op Diagnosis: Acute Appendicitis Post-Op Diagnosis: Acute Appendicitis I identified the patient and participated in the time-out.: Yes Procedure Operation Date: 05/28/21 16:00 Actual Procedures p Laparoscopic Appendectomy(Not Applicable) - David Huffman MD, FACS Surgeon David Huffamn MD, FACS Rack Washer B Jorge EARL Estimated Blood Loss 5 Findings Consistent with Post-Op Diagnosis Specimens Specimen Description: A. Appendix Drains Jorge Drain (19fr)
[2021-05-28] MEDS ORDERED: ESMOLOL HCL INJ 10 MG/ML 10ML VIAL IV ONE (19:48)
--- NOTE | 2021-05-28 19:53 | Operative Report ---
Post Operative Report Pre & Post Diagnosis Operation Date: 05/28/21 16:00 Pre-Op Diagnosis: Acute Appendicitis Post-Op Diagnosis: Acute Appendicitis I identified the patient and participated in the time-out.: Yes Procedure Operation Date: 05/28/21 16:00 Actual Procedures p Laparoscopic Appendectomy(Not Applicable) - David Huffman MD, FACS The patient was brought into the operating theater general endotracheal anesthesia supine position patient's abdomen was prepped byline solution properly draped antibiotics on board patient identified timeout was had made a small incision supraumbilically transversely sufficient for Veress needle followed by CO2 followed by 5 mm trocar point of entry spectrin no injury identified direct visualization we look towards the right lower quadrant see the cecum none is able to see the appendix therefore under direct visualization we placed a 5 mm right upper quadrant port with preemptive local anesthesia under direct visualization using a grabber from this area we able to elevate the cecum could identify what appeared to be an indurated area going down to the pelvic brim consistent probably with the appendix has not been visualized on the CAT scan this point I converted the 5 mm umbilical port and direct realization by placing the insufflator right upper quadrant 5 mm side made the incision larger used a Nimco to dilate the tract and placed 11 mm trocar on direct visualization the 5 mm removed we placed in left lower quadrant with preemptive local analgesia and direct visualization camera was placed in left lower quadrant the umbilical and right upper quadrant trocar sites were used to maneuver elevated the cecum and using just with blunt dissection we freed some retroperitoneal structures down towards we appear to be appendix which was acutely inflamed had a fibrinous exudate over it markedly dilated. There was no purulent fluid that we can appreciate. We then were able to elevate the mesoappendix and using of 10 mm clips we divided securing the tissue as we went along the mesoappendix was markedly inflamed and we continued it all the way to the base of the appendix were we able to create a window between the cecum and the appendiceal takeoff this point we used a blue application of the BERNIE and fired across without difficulty we completed dividing the mesoappendix with clips. The area was checked hemostasis irrigated and appeared quite satisfactory we placed the the acutely inflamed appendix possibly necrotic in areas down into an Endopouch and took it out intact through the helical port we then reinserted the 11 mm trocar and irrigated the area more copiously the staple line where we took the appendix was wrapped the cecum and there was no bleeding appreciated I elected to drain the pelvic area since the patient had marked inflammation in the area we brought a 19 Jorge drain through the right upper quadrant trocar site and position is done in the pelvis attached to skin edges with 2-0 silk sutures on direct visualization we pulled the umbilical in the left lower quadrant trocar site we then closed the umbilical port using 0 Vicryl [id number] times 2 Monocryl for subcuticular Steri-Strips applied procedure was tolerated well by the patient estimated blood loss approximately 5 cc Addendum Seth Patel physician chemist assistant was present throughout the case and helped the retraction exposure and wound closure addendum talked to his brother Jf at [phone] Surgeon David Huffman MD, FACS Senior Stack Engineer Viri EARL Estimated Blood Loss 5 Findings Consistent with Post-Op Diagnosis Acute appendicitis with fibrin exudate no peritoneal fluid seen appendix is markedly dilated possibly necrotic in areas Specimens Appendix Drains 19 Jorge drain in the pelvis through right upper quadrant trocar site Description of Procedure merda I attest to the content of the Intraoperative Record and any orders documented therein. Any exceptions are noted below.
--- NOTE | 2021-05-28 20:34 | Anesthesiology Progress Note ---
Date of Service May 28, 2021 Anesthesia Post Procedure Vital Signs Vital Signs: Temp Pulse Pulse Resp BP BP Pulse Ox 05/28/21 20:25 102 H 18 123/79 94 05/28/21 20:15 101 H 18 144/73 H 94 05/28/21 20:08 36.8 C 99 H 18 137/74 94 05/28/21 18:04 36.9 C 05/28/21 12:01 37 C 74 14 154/90 H 98 05/28/21 11:50 88 12 95 05/28/21 11:47 82 24 135/75 94 05/28/21 11:46 87 17 94 Pain Intensity Right Lower Abdomen: Pain Intensity: 4 Transfer of Care Handoff Completed per policy Notes Mental Status: alert / awake / arousable and participated in evaluation Patient Amnestic to Procedure: Yes Nausea / Vomiting: adequately controlled Pain: adequately controlled Airway Patency, RR, SpO2: stable & adequate BP & HR: stable & adequate Hydration State: stable & adequate Anesthetic Complications: no major complications apparent and Pt Satisfied with anesthetic care
[2021-05-28] MEDS: LACTATED RINGER'S 1,000 ML IV SCH (21:10)
[2021-05-28] MEDS ORDERED: ACETAMINOPHEN 1,000 MG/100 ML VIAL IV PRN (21:10)
[2021-05-28] MEDS ORDERED: NITROGLYCERIN SL 0.4 MG/TAB TAB SL PRN (21:10)
[2021-05-28] MEDS: EZETIMIBE 10 MG TABLET PO SCH (21:55)
[2021-05-28] MEDS: ATORVASTATIN 40 MG TAB PO SCH (21:55)
[2021-05-28] MEDS: GABAPENTIN 600 MG TAB PO SCH (21:55)
[2021-05-28] MEDS: ASPIRIN 81 MG ECTAB PO SCH (21:55)
[2021-05-28] MEDS ORDERED: DEXTROSE 50% 50 ML SYRINGE IV PRN (22:15)
[2021-05-28] MEDS ORDERED: GLUCOSE 10 TABS/TUBE PO PRN (22:15)
[2021-05-28] MEDS ORDERED: GLUCAGON FOR INJ 1 MG VIAL IM PRN (22:15)
[2021-05-28] MEDS ORDERED: CARBOHYDRATES FOR HYPOGLYCEMIA PO PRN (22:15)
[2021-05-28] MEDS ORDERED: GLUCOSE 40% GEL 15 GM TUBE PO PRN (22:15)
[2021-05-28] MEDS: INSULIN HUMAN REGULAR SC SCH (22:45)
[2021-05-28] MEDS: cefOXitin 2,000 MG in DEXTROSE 5% 50 ML IV SCH (22:45)
[2021-05-29] MEDS: MoRPHine SULFATE 4 MG/ML 1 ML CARP\\VIAL IV PRN ×5 (00:14→20:06)
[2021-05-29] MEDS: cefOXitin 2,000 MG in DEXTROSE 5% 50 ML IV SCH ×4 (04:45→21:34)
[2021-05-29 06:05] LABS: Basophils # (auto) 0.02 K/uL (0-0.2); Basophils % (auto) 0.1 %; Eosinophils # (auto) 0.05 K/uL (0-0.5); Eosinophils % (auto) 0.3 %; Hematocrit (blood only) 42.6 % (42-52); Hemoglobin 14.5 g/dL (14.0-18.0); Immature Granulocytes # (auto) 0.04 K/uL (0.00-0.02); Immature Granulocytes % (auto) 0.3 %; Lymphocytes # (auto) 1.74 K/uL (1.2-3.4); Mean Corpuscular Hemoglobin 34.6 pg (25-34); Mean Corpuscular Volume 101.7 fL (80-100); Mean Platelet Volume 9.4 fL (7.4-10.4); Monocytes % (auto) 10.7 %; Neutrophils # (auto) 12.34 K/uL (1.4-6.5); Neutrophils % (auto) 77.6 %; Platelet Count 139 K/uL (130-400); RDW Standard Deviation 48.3 fL (36.4-46.3); Red Blood Count 4.19 M/uL (4.7-6.1); White Blood Count 15.89 K/uL (4.8-10.8)
--- NOTE | 2021-05-29 06:05 | Surgery Progress Note ---
Date of Service May 29, 2021 Assessment & Plan (1) Acute appendicitis: Plan: Postop day #1 laparoscopic appendectomy Continue analgesics Continue antiemetics Maintain patient on antibiotics while in hospital; he is currently receiving cefoxitin Continue IV fluids until certain oral intake is adequate Continue LEAH drain; it is drained 20 cc of serosanguineous fluid since surgery Encourage incentive spirometry Increase activity as able Check labs when available Admission and Anticipated Discharge Date Admission Date: May 28, 2021 Supervising Physician Co-Signing Physician Notes As per Seth Barkley physician market research assistant Patient is alert coherent resting comfortably Abdomen is benign Jorge drainage minimal serous sanguinous Intraoperative findings were discussed with the patient Depending how he does this morning tolerates diet and is comfortable patient can be discharged instructions were given to him to come back to the office on Sunday and remove the drain we will send him home on p.o. antibiotics and analgesics All question answered Subjective Patient is resting comfortably in bed. He notes that his pain has improved since surgery. He denies any nausea vomiting. He says since surgery he has only drank some water which did not exacerbate abdominal pain or cause any nausea vomiting. He reports he does not really have much in the way of appetite. No bowel movement or flatus since surgery. Physical Exam Gastrointestinal (Abdomen): Abdomen is soft and nondistended. He has appropriate pain near surgical incisions. Bowel sounds are hypoactive. Results & Data ([facility]) Vital Signs (Past 12 Hours) Vital Signs Temp Pulse Pulse Resp BP Pulse Ox 05/29/21 03:13 36.9 C 87 16 134/78 96 05/29/21 00:03 36.3 C L 100 H 16 103/67 94 05/28/21 23:24 72 16 117/72 95 05/28/21 22:14 104 H 16 115/65 93 05/28/21 21:31 36.7 C 102 H 17 121/71 92 05/28/21 21:07 37.2 C 105 H 17 113/70 93 05/28/21 20:55 37.2 C 105 H 17 113/70 93 05/28/21 20:45 36.8 C 104 H 18 97/77 L 94 05/28/21 20:35 105 H 18 116/72 94 05/28/21 20:25 102 H 18 123/79 94 05/28/21 20:15 101 H 18 144/73 H 94 05/28/21 20:08 36.8 C 99 H 18 137/74 94 05/28/21 18:04 36.9 C PG Care Time/CCT Total # of Minutes Spent Total Time Spent with Patient: Total time spent is greater than 50% in coordination of care (as documented) at patient's floor/unit and/or counseling patient: Coding Level of Care Code None Diagnoses Acute appendicitis K35.30 Acute appendicitis type: with localized peritonitis Appendicitis abscess presence: unspecified whether abscess present Appendicitis gangrene presence: unspecified whether gangrene present Appendicitis perforation presence: unspecified whether perforation present (1) Acute appendicitis Acute appendicitis type: with localized peritonitis Appendicitis abscess presence: unspecified whether abscess present Appendicitis gangrene presence: unspecified whether gangrene present Appendicitis perforation presence: unspecified whether perforation present Qualified Code(s): K35.30 - Acute appendicitis with localized peritonitis, without perforation or gangrene
[2021-05-29 06:35] LABS: BUN Creatinine Ratio 12.3 (10-20); Calcium 8.5 mg/dl (8.5-10.1); Est GFR (African American) 106.6 ml/min; Potassium 4.1 mmol/L (3.5-5.1)
[2021-05-29] MEDS: LACTATED RINGER'S 1,000 ML IV SCH ×2 (07:44→21:34)
[2021-05-29] MEDS: INSULIN HUMAN REGULAR SC SCH ×4 (09:19→20:41)
[2021-05-29] MEDS: OXYBUTYNIN CHLORIDE XL 5 MG TABCR PO SCH (09:27)
[2021-05-29] MEDS: GABAPENTIN 600 MG TAB PO SCH ×3 (09:28→20:08)
[2021-05-29] MEDS: PANTOprazole 40 MG TAB PO SCH (09:28)
[2021-05-29] MEDS: METOPROLOL SUCC 50MG EXT REL TAB PO SCH (09:31)
[2021-05-29] MEDS: lisinopril 2.5 MG TAB PO SCH (09:31)
[2021-05-29] MEDS: VENLAFAXINE HCL XR 75 MG CAPXR PO SCH (09:32)
[2021-05-29] MEDS: ISOSORBIDE MONO EXTENDED REL 30 MG TABCR PO SCH (09:33)
[2021-05-29] MEDS: HEPARIN SOD 5,000 UNIT/0.5 ML VIAL SQ SCH ×2 (10:37→20:09)
[2021-05-29 11:32] LABS: Appearance Urine Clear (Clear); Bilirubin Urine Negative (Negative); Blood Urine Negative (Negative); Color Urine Yellow; Glucose Urine UA 3+ (Negative); Ketones Urine 1+ (Negative); Leukocyte Esterase Urine Negative (Negative); Nitrite Urine Negative (Negative); Protein Urine Negative (Negative); Specific Gravity Urine 1.034 (1.000-1.030); Urobilinogen Urine Negative (Negative)
--- NOTE | 2021-05-29 11:44 | Electrocardiogram Report ---
Test Reason : Blood Pressure : / mmHG Vent. Rate : 082 BPM Atrial Rate : 082 BPM P-R Int : 166 ms QRS Dur : 086 ms QT Int : 366 ms P-R-T Axes : 029 024 035 degrees QTc Int : 427 ms Normal sinus rhythm Normal ECG When compared with ECG of 03-APR-2018 19:54, Borderline criteria for Inferior infarct are no longer Present Confirmed by French Ackerman ([id number]) on 05/29/2021 11:44:41 AM Referred By: REFERRED SELF Confirmed By:French Ackerman
[2021-05-29] MEDS ORDERED: KETOROLAC TROMETHAMINE 15 MG/ML VIAL IV PRN (20:05)
[2021-05-29] MEDS: ASPIRIN 81 MG ECTAB PO SCH (20:08)
[2021-05-29] MEDS: EZETIMIBE 10 MG TABLET PO SCH (20:08)
[2021-05-29] MEDS: ATORVASTATIN 40 MG TAB PO SCH (20:08)
[2021-05-30] MEDS: cefOXitin 2,000 MG in DEXTROSE 5% 50 ML IV SCH ×2 (04:18→08:53)
--- NOTE | 2021-05-30 06:45 | Surgery Progress Note ---
Date of Service May 30, 2021 Assessment & Plan (1) Acute appendicitis: Plan: We will reevaluate him later this morning increase his diet and if his oral intake is adequate pain discomfort control he could be discharged instructions abdomen really written prescription for antibiotics have been sent to the pharmacy already Admission and Anticipated Discharge Date Admission Date: May 28, 2021 Subjective Patient feels better this morning than yesterday stating he was not ready to go home has some abdominal discomfort He had a good night minimal discomfort Physical Exam Physical Exam: Alert coherent lying in bed comfortably asleep when I first walked in The abdomen is minimally distended dressing on the trocar sites free of any drainage The Jorge drain serosanguineous Results & Data ([facility]) Vital Signs (Past 12 Hours) Vital Signs Temp Pulse Resp BP Pulse Ox 05/29/21 23:23 92 05/29/21 23:18 36.7 C 81 17 115/75 88 L PG Care Time/CCT Total # of Minutes Spent Total Time Spent with Patient: Total time spent is greater than 50% in coordination of care (as documented) at patient's floor/unit and/or counseling patient: Coding Level of Care Code None Diagnoses Acute appendicitis K35.30 Acute appendicitis type: with localized peritonitis Appendicitis abscess presence: unspecified whether abscess present Appendicitis gangrene presence: unspecified whether gangrene present Appendicitis perforation presence: unspecified whether perforation present (1) Acute appendicitis Acute appendicitis type: with localized peritonitis Appendicitis abscess presence: unspecified whether abscess present Appendicitis gangrene presence: unspecified whether gangrene present Appendicitis perforation presence: unspecified whether perforation present Qualified Code(s): K35.30 - Acute appendicitis with localized peritonitis, without perforation or gangrene
[2021-05-30] MEDS: GABAPENTIN 600 MG TAB PO SCH (07:30)
[2021-05-30] MEDS: ISOSORBIDE MONO EXTENDED REL 30 MG TABCR PO SCH (07:31)
[2021-05-30] MEDS: METOPROLOL SUCC 50MG EXT REL TAB PO SCH (07:31)
[2021-05-30] MEDS: lisinopril 2.5 MG TAB PO SCH (07:32)
[2021-05-30] MEDS: PANTOprazole 40 MG TAB PO SCH (07:32)
[2021-05-30] MEDS: HEPARIN SOD 5,000 UNIT/0.5 ML VIAL SQ SCH (07:32)
[2021-05-30] MEDS: OXYBUTYNIN CHLORIDE XL 5 MG TABCR PO SCH (07:32)
[2021-05-30] MEDS: VENLAFAXINE HCL XR 75 MG CAPXR PO SCH (07:32)
[2021-05-30] MEDS: INSULIN HUMAN REGULAR SC SCH (08:53)
--- NOTE | 2021-05-31 21:16 | Discharge Summary ---
Date of Service May 31, 2021 Admission HPI Per Admitting Provider This very pleasant 65-year-old gentleman has a 48-hour history of abdominal pain eventually progressed to the right lower quadrant was seen in the emergency room earlier diagnosed with acute appendicitis by CAT scan and chemically Patient denies any fever chills nausea or diarrhea Patient's past medical history is positive for having had a history of colonic polyps and family history of carcinoma in fact his last colonoscopy was 2 years ago and is due to follow-up in the next month or so last colonoscopy had multiple polyps removed that were benign He had a past history of coronary artery disease has had multiple stents not on any anticoagulation followed by cardiology regularly last saw cardiology about a year ago He is quite active rides a bike walks regularly and denies any chest pain or any shortness of breath Discharge Data Consultations 05/28/21 12:48 Consult General Surgery Stat Procedures Performed Operation Date: 05/28/21 16:00 Actual Procedures p Laparoscopic Appendectomy(Not Applicable) - David Huffman MD, [facility] Hospital Course (1) Acute appendicitis: Patient was admitted to the hospital on 05/28/2021 secondary to abdominal pain. Imaging performed revealed patient had acute appendicitis and he was therefore taken the operating room on day of admission at which time he underwent a laparoscopic appendectomy Dr. Huffman. His postoperative course he did not have any complications but he did have significant postoperative pain which required an additional day in the hospital. His pain was well controlled by postop day #2 and he was discharged on 05/30/2021. Because his appendix was acutely inflamed it is felt that the patient would benefit from discharge home on antibiotics. He was discharged home on a 1 week course of Cipro and Flagyl. The patient was instructed on appropriate wound care, diet, and activity. He was told to call Dr. Huffman's office for 1 to 2-week follow-up appointment. Coding Level of Care Code None Diagnoses Acute appendicitis K35.30 Acute appendicitis type: with localized peritonitis Appendicitis abscess presence: unspecified whether abscess present Appendicitis gangrene presence: unspecified whether gangrene present Appendicitis perforation presence: unspecified whether perforation present
== END 2021-05-30 12:04 | disposition home or self-care (01) ==
LOC: ED 11:39 → 3N 18:14 → ASU 18:14

== ENCOUNTER 2023-05-31 05:41 | Inpatient (IN) ==
[2023-05-31 06:22] LABS: Basophils # (auto) 0.06 K/uL (0.00-0.20); Basophils % (auto) 0.6 %; Eosinophils # (auto) 0.23 K/uL (0.00-0.50); Eosinophils % (auto) 2.5 %; Hematocrit (blood only) 41.7 % (42.0-52.0); Hemoglobin 14.4 g/dl (14.0-18.0); Immature Granulocytes # (auto) 0.06 K/uL (0.01-0.20); Immature Granulocytes % (auto) 0.6 %; Lymphocytes # (auto) 1.52 K/uL (1.20-3.40); Lymphocytes % (auto) 16.4 %; Mean Corpuscular Hemoglobin 33.5 pg (25.0-34.0); Mean Corpuscular Hgb Conc 34.5 g/dL (32.0-36.0); Mean Platelet Volume 9.4 fL (9.4-12.4); Monocytes # (auto) 0.91 K/uL (0.11-0.59); Monocytes % (auto) 9.8 %; Neutrophils # (auto) 6.47 K/uL (1.40-6.50); Neutrophils % (auto) 70.1 %; Platelet Count 184 K/uL (130-400); RDW Coefficient of Variation 12.8 % (11.5-14.5); RDW Standard Deviation 45.3 fL (36.4-46.3); White Blood Count 9.25 K/ul (4.8-10.8)
[2023-05-31 06:31] LABS: Albumin Globulin Ratio 1.5 (0.9-2); Albumin Level 4.5 gm/dl (3.4-5.0); BUN Creatinine Ratio 17.8 (10-20); Bilirubin,Total 0.8 mg/dl (0.2-1.0); Calcium 9.5 mg/dl (8.6-10.3); Creatinine Clr Calc Pharmacy 60.2 ml/min; Est GFR (African American) 72.5 ml/min; Est GFR (Non-African American) 62.6 ml/min; Magnesium 2.2 mg/dl (1.7-2.4); Potassium 4.2 mmol/L (3.5-5.1); Total Protein 7.5 gm/dl (6.0-8.3)
--- NOTE | 2023-05-31 06:54 | CT Scan Report ---
CT head/brain wo con CLINICAL HISTORY: altered mental status Technique: Contiguous axial CT images of the head were acquired from the base of the skull to the radha yuli without intravenous contrast administration. Images were viewed in brain, subdural and bone [facility]. Automated dose lowering techniques and/or adjustment according to patient size were utilized for this exam. Comparison: Comparison is made to CT head 03/02/2023 Findings: Areas of decreased attenuation are present in the periventricular and subcortical white matter bilate rally consistent with small vessel ischemic disease. Generalized cerebral atrophy with commensurate e nlargement of the ventricles, sulci, and cisterns is also present. There is no acute intracranial hem orrhage or evidence of acute territorial infarction. No shift of the midline structures, mass effect, or extra-axial abnormalities are shown. Atherosclerotic calcifications are present in the intracran ial segments of the internal carotid arteries. Calcifications of the falx noted. Imaged portions of the paranasal sinuses and mastoid air cells are clear. The orbits appear normal. There are no acute fractures of the calvaria or scalp swelling. Impression: No acute intracranial hemorrhage, no evidence of acute territorial infarction or other acute intracra nial disease process. ACT 112: Negative or not required by law. Electronically signed by: Charlie Cheung M.D. 05/31/2023 6:52 AM
--- NOTE | 2023-05-31 07:14 | Emergency Department Note ---
Impression & Plan AMS (altered mental status), Hypothermia, CHI (closed head injury), Abrasion of toe, left, Abrasion of toe, right, Fall, Rhabdomyolysis ED Provider Note NAME: CAL STINSON AGE: 67 SEX: Male INFORMANT: Patient ED PROVIDER(S): Gianluca Maier MD CHIEF COMPLAINT: Fall PLAN: Disposition: Admitted Outpatient prescription management: none Referral: None MEDICAL DECISION MAKING: Patient presented because of a fall. He was found outside for an extended period of time. He cannot give great details. Patient was found to have multiple abrasions on his toes bilaterally. He also an abrasion of the left eyebrow. A workup was initiated. He was hypothermic with a body temperature down to 34.4. He was placed on a Dafne hugger and given warmed fluids. Patient's ECG showed a sinus rhythm. Patient had unremarkable CBC. Chemistry panel revealed a mildly low CO2 and anion gap. Glucose was 120. X-ray imaging of the chest as well as feet bilaterally was ordered. Head CT was performed and did not reveal any acute findings. Patient is exhibiting some hallucinations. He has had problems like this in the past. Patient was also noted to have multiple visits last year for various reasons. Given his fall, hypothermia, and social situation case management was involved. Discussed admission and further evaluation of his case out of concerns for safety for the patient. Consultation was made with the [facility] hospitalist service. Case was discussed and diagnostics were reviewed. Patient was evaluated in the ER and admitted for further management. Patient was found to have some phalanges fractures on the left foot. Postop shoe ordered. Hospitalist notified. Care/management discussed with: manager field service Level of care consideration(s): After review of the information above and other included data, I feel the patient requires escalation of care to admission Triage Nursing notes: reviewed and agree them. Vital Signs: reviewed and remarkable for hypothermia Additional History obtained from: EMS Chronic Medical/Social Conditions affecting care: Dementia Prior/ Outside/ External records reviewed: none Differential Diagnosis: Infection, hypoglycemia, electrolyte abnormalities, overdose, toxicologic, cardiac sources, intracerebral event, neurologic, trauma, as well as other pathologies. Diagnostics, independently interpreted by me: ECG: Twelve-lead ECG reveals a sinus rhythm with a first-degree AV block at [address] elevation or depression. No PACs or PVCs Cardiac Monitoring: Cardiac monitoring ordered by me: The patient was placed on continuous cardiac monitoring and observed. It revealed a normal sinus rhythm at 75 beats per minute without ectopy or evidence of dysrhythmia. Medical decision rules: none Imaging studies: Head CT: A noncontrast CT scan of the head was performed and was negative for tumor, fracture, intracranial hemorrhage, or other acute pathology. Chest x-ray. Findings: A chest x-ray was performed and revealed no pneumothorax, effusion, infiltrate, pulmonary edema, free air under the diaphragm, or wide mediastinum. Impression: No acute disease. X-ray imaging of the feet bilaterally reveal fractures of the left second fourth and fifth proximal phalanges. HPI: 67 year old Male arrives for evaluation of altered mental status. Patient has a history of dementia, HIV, hyperlipidemia hypertension. Patient was reportedly found outside. He was out for many hours crawling around on the ground. He had an obvious fall with an abrasion over the left eyebrow. He also had abrasions to his toes bilaterally. Patient denies any pain. He is unsure how he got on the ground. He is unsure if he was struck by someone or if he fell. Patient was noted to have some hallucinations per EMS and nursing. Patient does have a history of this in the past. Patient states he has not been eating and drinking well. States he is taking his medications. Patient does admit to using marijuana. Denies any recent medical illness. Pt denies LOC, headache, fevers, chills, diaphoresis, visual changes, neck pain, chest pain, breathing difficulties, nausea, vomiting, abdominal pain, back pain, melena, hematochezia, urinary symptoms, numbness, weakness, lymphadenopathy, rash, or other complaints. PAST MEDICAL HISTORY: See Below, hypertension, dementia PAST SURGICAL HISTORY: See Below, appendectomy SOCIAL HISTORY: See Below, lives alone HOME MEDICATIONS: See Below ALLERGIES: See Below VITALS: See Below PHYSICAL EXAMINATION: GENERAL: Awake, alert, [id number], in no distress HENT: Normocephalic, hematoma and abrasion noted above the left eyebrow without significant laceration. Oropharynx unremarkable. EYES: Normal conjunctiva. Sclera non-icteric. PERRLA. NECK: Inspection normal. Non-tender. Supple. No nuchal rigidity. FROM. No masses. RESPIRATORY: Clear to auscultation. No wheezes. No rales. Normal respiratory effort. CARDIAC: Normal rate. Normal rhythm. No murmurs. No rubs. Extremities warm and well perfused. Pulses equal. No JVD. GI: Soft, non-distended. No tenderness to palpation. No rebound or guarding. No masses. RECTAL: Deferred. MUSCULOSKELETAL: No bony deformity or tenderness in the upper extremities or lower extremities except for the bilaterally toes. Chest examination reveals no tenderness. The back is symmetrical on inspection without obvious abnormality. There is no CVA tenderness to palpation. No joint edema. LOWER EXTREMITIES: Calves are equal size bilaterally and non-tender. No edema. No discoloration. NEURO: Mildly altered sensorium. No sensory or motor deficits noted. SKIN: Cool to the touch. Abrasions noted on the toes, dorsal aspects bilaterally. No rash or jaundice noted. PROCEDURES: none CRITICAL CARE: none OBSERVATION NOTE: none Past Med/Surg History Medical History Ambulatory dysfunction Terrance Bonnet syndrome Exposure to COVID-19 virus Abdominal pain, acute, right lower quadrant Acute appendicitis Sensorineural hearing loss of both ears Mixed conductive and sensorineural hearing loss of left ear with restricted hearing of right ear Cleft palate Cleft lip Deep vein thrombosis Fall 2016 Left Leg with unknown reasoning. Osteoarthritis Basal cell carcinoma Spinal stenosis Macular degeneration Lumbosacral radiculopathy Idiopathic polyneuropathy Hypertension Hyperlipidemia Hearing loss Gastroesophageal reflux disease Depression Degenerative disc disease, lumbar Coronary artery disease Colon polyps Heart attack 2016 & November 2017 Injury of left shoulder Acute myocardial infarction Surgical History History of laparoscopic appendectomy (05/28/21) History of cleft lip History of colonoscopy History of esophagogastroduodenoscopy (EGD) History of carpal tunnel release History of laminectomy Hx of local excision of skin lesion History of heart artery stent History of cardiac catheterization History of placement of ear tubes History of tonsillectomy and adenoidectomy History of sinus surgery History of rotator cuff surgery Family History Mother Cancer Cardiac disorder Colorectal cancer Father Cardiac disorder Myocardial infarction Brother Diabetes Grandmother (Maternal) Diabetes Denies family history of No pertinent family history Ovarian cancer Prostate cancer Breast cancer Social History Smoking Status: Current every day smoker Tobacco Type: Cigarettes Cigarettes Per Day: 20; Second Hand Exposure: No; Do You Dip or Chew Tobacco: No; Hx Alcohol Use: Yes Alcohol type: beer Hx Substance Use: Yes Last Used Substance: Hours (ago) Preferred Language: Mongolian Communication Ability: Effective Visual Impairment: No Limitations Hearing Ability: Hard of Hearing Climate Change Analyst Required: No Beliefs That Will Affect Care: None marital status: Single Current Living Situation: Alone current occupational status: retired current occupation: Retired Feels Safe at Home: Yes Childhood Exposure to Second-Hand Smoke: No Seatbelt Use: always Do you think of yourself as: lesbian/ulrich/homosexual Assistive Devices: None Allergies Allergies Allergy/AdvReac Type Severity Reaction Status Date / Time Penicillins Allergy Mild RASH Verified 03/07/23 14:28 metformin AdvReac Intermediate Diarrhea Verified 03/07/23 14:28 Home Meds Home Medications Medication Instructions Recorded Confirmed aspirin 81 mg tablet,delayed 81 mg PO HS #30 tabs 12/19/18 05/31/23 release cholecalciferol (vitamin D3) 125 5,000 units PO QAM 12/19/18 05/31/23 mcg (5,000 unit) tablet nitroglycerin 0.4 mg sublingual 0.4 mg sublingual Q5M PRN chest 12/19/18 05/31/23 tablet pain #30 tabs vit A 7,160 unit-vit C 113 mg-vit 1 tab PO PM 02/15/21 05/31/23 E 100 reez-quxz-veisai tablet bictegravir 50 mg-emtricitabine 1 tab PO DAILY 12/20/21 05/31/23 200 mg-tenofovir alafenam 25 mg tablet (Biktarvy) lisinopril 2.5 mg tablet 2.5 mg PO QAM 02/12/23 05/31/23 aripiprazole 2 mg tablet 2 mg PO HS 05/31/23 05/31/23 bupropion HCl 150 mg 24 hr tablet, 150 mg PO QAM 05/31/23 05/31/23 extended release bupropion HCl 300 mg 24 hr tablet, 300 mg PO QAM 02/01/24 02/01/24 extended release Previous Rx's Medication Instructions Recorded ibuprofen 200 mg capsule 400 mg (2 x 200 mg) PO Q8H PRN 05/29/21 pain #30 caps venlafaxine 225 mg tablet,extended 225 mg PO QAM #90 tabs 09/12/21 release 24 hr OneTouch Ultra2 Meter #1 ea 06/07/22 (blood-glucose meter) OneTouch UltraSoft Lancets #200 ea 06/07/22 (lancets) blood sugar diagnostic (OneTouch #200 ea 06/07/22 Ultra Test strips) metoprolol succinate 50 mg 50 mg PO QAM #90 tabs 08/14/22 tablet,extended release 24 hr atorvastatin 40 mg tablet 40 mg PO HS #84 tabs 10/05/22 ezetimibe 10 mg tablet (Zetia) 10 mg PO HS #84 tabs 10/05/22 oxybutynin chloride 5 mg 5 mg PO QAM #84 tabs 10/05/22 tablet,extended release 24 hr pantoprazole 40 mg tablet,delayed 40 mg PO QAM #84 tabs 10/05/22 release isosorbide mononitrate 30 mg 90 mg (3 x 30 mg) PO QAM #90 tabs 11/06/22 tablet,extended release 24 hr glipizide 10 mg tablet 10 mg PO BID #180 tabs 12/13/22 cyanocobalamin (vitamin B-12) 1,000 mcg PO QAM #30 tabs 01/23/23 1,000 mcg tablet (Vitamin B-12) empagliflozin 25 mg tablet 25 mg PO QAM #30 tabs 01/30/23 (Jardiance) gabapentin 800 mg tablet 800 mg PO TID #84 tabs 01/30/23 food supplemt, lactose-reduced 1 ea PO DAILY #7,110 mL 03/30/23 (Ensure Original oral liquid) Results & Data (ED) Vital Signs Vital Signs - 24 hr 05/31/23 05:51 05/31/23 05:57 05/31/23 06:14 Temperature 34.4 C L Temperature Source Rectal Pulse Rate 83 84 Pulse Rate from SpO2 Sensor Pulse Rhythm Regular Pulse Strength Normal Respiratory Rate 14 Respiratory Effort / Characteristics Non-Labored Non-Labored Spontaneous Respiratory Depth Normal Normal Respiratory Pattern Regular Blood Pressure 133/81 Blood Pressure Mean 98 Blood Pressure Position Sitting Pulse Oximetry 96 Oxygen Delivery Method Room Air Sepsis Recent Fever Within 48 Hours No Sepsis New/Unexplained Change in Mental Status Yes Sepsis Action Taken by Nursing Physician Notified 05/31/23 06:14 05/31/23 07:00 05/31/23 07:35 Temperature Temperature Source Pulse Rate 84 75 Pulse Rate from SpO2 Sensor 84 73 Pulse Rhythm Pulse Strength Respiratory Rate 16 12 Respiratory Effort / Characteristics Respiratory Depth Respiratory Pattern Blood Pressure 122/77 Blood Pressure Mean 92 Blood Pressure Position Pulse Oximetry 98 98 99 Oxygen Delivery Method Room Air Room Air Room Air Sepsis Recent Fever Within 48 Hours Sepsis New/Unexplained Change in Mental Status Sepsis Action Taken by Nursing 05/31/23 07:39 05/31/23 08:00 05/31/23 08:09 Temperature 35.7 C L 36.0 C L Temperature Source [place] Cath ( Temp Sensing) [place] Cath ( Temp Sensing) Pulse Rate 86 Pulse Rate from SpO2 Sensor 86 Pulse Rhythm Pulse Strength Respiratory Rate 24 Respiratory Effort / Characteristics Respiratory Depth Respiratory Pattern Blood Pressure 110/72 Blood Pressure Mean 84 Blood Pressure Position Pulse Oximetry 98 Oxygen Delivery Method Room Air Sepsis Recent Fever Within 48 Hours Sepsis New/Unexplained Change in Mental Status Sepsis Action Taken by Nursing 05/31/23 08:30 05/31/23 08:35 05/31/23 08:41 Temperature 36.1 C L 36.5 C Temperature Source [place] Cath ( Temp Sensing) Oral Pulse Rate 78 Pulse Rate from SpO2 Sensor 79 Pulse Rhythm Pulse Strength Respiratory Rate 18 Respiratory Effort / Characteristics Respiratory Depth Respiratory Pattern Blood Pressure 111/70 Blood Pressure Mean 83 Blood Pressure Position Pulse Oximetry 96 Oxygen Delivery Method Room Air Sepsis Recent Fever Within 48 Hours Sepsis New/Unexplained Change in Mental Status Sepsis Action Taken by Nursing Laboratory Data 05/31/23 05:54 05/31/23 05:54 Lab Results 05/31/23 05/31/23 Range/Units 05:54 07:30 WBC 9.25 (4.8-10.8) K/ul RBC 4.30 L (4.70-6.10) M/uL Hgb 14.4 (14.0-18.0) g/dl Hct 41.7 L (42.0-52.0) % MCV 97.0 (80.0-100.0) fL MCH 33.5 (25.0-34.0) pg MCHC 34.5 (32.0-36.0) g/dL RDW Std Deviation 45.3 (36.4-46.3) fL RDW Coeff of Zunilda 12.8 (11.5-14.5) % Plt Count 184 (130-400) K/uL MPV 9.4 (9.4-12.4) fL Immature Gran % (Auto) 0.6 % Neut % (Auto) 70.1 % Lymph % (Auto) 16.4 % Hale % (Auto) 9.8 % Eos % (Auto) 2.5 % Baso % (Auto) 0.6 % Neut # (Auto) 6.47 (1.40-6.50) K/uL Lymph # (Auto) 1.52 (1.20-3.40) K/uL Hale # (Auto) 0.91 H (0.11-0.59) K/uL Eos # (Auto) 0.23 (0.00-0.50) K/uL Baso # (Auto) 0.06 (0.00-0.20) K/uL Immature Gran # (Auto) 0.06 (0.01-0.20) K/uL Sodium 137 (136-145) mmol/L Potassium 4.2 (3.5-5.1) mmol/L Chloride 103 (98-107) mmol/L Carbon Dioxide 20 L (21-32) mmol/L Anion Gap 14 H (3-11) BUN 21 (6-23) mg/dl Creatinine 1.18 (0.6-1.4) mg/dl Est Cr Clr Drug Dosing 60.2 ml/min Est GFR ( Amer) 72.5 ml/min Est GFR (Non-Af Amer) 62.6 ml/min BUN/Creatinine Ratio 17.8 (10-20) Glucose 121 H (70-99(Fasting)) mg/dl Calcium 9.5 (8.6-10.3) mg/dl Magnesium 2.2 (1.7-2.4) mg/dl Total Bilirubin 0.8 (0.2-1.0) mg/dl AST 49 H (13-39) U/L ALT 44 (7-52) U/L Alkaline Phosphatase 98 (34-104) U/L Total Creatine Kinase 947 H (30-223) U/L Troponin I High Sens 3.0 (0-20) pg/ml Total Protein 7.5 (6.0-8.3) gm/dl Albumin 4.5 (3.4-5.0) gm/dl Globulin 3.0 (2.5-4.0) gm/dl Albumin/Globulin Ratio 1.5 (0.9-2) Urine Color Yellow Urine Appearance Clear (Clear) Urine pH 5.5 (4.5-7.5) Ur Specific [place] 1.031 H (1.000-1.030) Urine Protein Negative (Negative) Urine Glucose (UA) 3+ H (Negative) Urine Ketones Trace H (Negative) Urine Blood Negative (Negative) Urine Nitrite Negative (Negative) Urine Bilirubin Negative (Negative) Urine Urobilinogen Negative (Negative) Ur Leukocyte Esterase Negative (Negative) Urine Opiates Screen Neg (Neg) Ur Methadone, Qual Neg (Neg) Urine Barbiturates Neg (Neg) Ur Phencyclidine (PCP) Neg (Neg) U Amphetamin/Meth Scrn Neg (Neg) MDMA (Ecstasy) Screen Pos H (Neg) U Benzodiazepines Scrn Neg (Neg) Ur Cocaine Metabolite Neg (Neg) U Marijuana (THC) Screen Pos H (Neg) SARS-CoV-2 (PCR) NEGATIVE (Negative) Influenza Type A (PCR) Negative (Neg) Influenza Type B (PCR) Negative (Neg) RSV (RT-PCR) Negative (Neg) Administered Medications Acetaminophen (Acetaminophen 325 Mg Tab) 650 mg PO Q4H PRN PRN Reason: pain/fever Stop: 06/30/23 10:32 Last Admin: 05/31/23 11:55 Dose: 650 mg Documented By: TEE Cyanocobalamin (Cyanocobalamin (B-12) 500 Mcg Tablet) 1,000 mcg PO QAM [facility] Stop: 06/30/23 10:59 Last Admin: 05/31/23 11:21 Dose: 1,000 mcg Documented By: CEF Empagliflozin (Empagliflozin 25 Mg Tab) [facility] Stop: 06/30/23 10:32 Last Admin: 05/31/23 11:17 Dose: 25 mg Documented By: CEF Gabapentin (Gabapentin 800 Mg Tab) 800 mg PO TID [facility] Stop: 06/30/23 10:32 Last Admin: 05/31/23 13:59 Dose: 800 mg Documented By: Admin: 05/31/23 11:18 Dose: 800 mg Documented By: CEF Sodium Chloride (Nss) 1,000 mls @ 125 mls/hr IV .Q8H [facility] Stop: 06/30/23 06:59 Last Admin: 05/31/23 15:06 Dose: 125 mls/hr Documented By: Infusion: 05/31/23 15:06 Dose: Infused Documented By: Admin: 05/31/23 10:44 Dose: 125 mls/hr Documented By: Infusion: 05/31/23 10:44 Dose: Infused Documented By: Admin: 05/31/23 08:08 Dose: 125 mls/hr Documented By: CAPRI Insulin Aspart (Insulin Aspart Per Unit Charge) 0 units SC ACHS [facility] Stop: 06/30/23 11:29 Last Admin: 05/31/23 13:02 Dose: Not Given Documented By: TEE Isosorbide Mononitrate (Isosorbide Hale Extended Rel 30 Mg Tabcr) [address] [facility] Stop: 06/30/23 10:32 Last Admin: 05/31/23 11:18 Dose: 90 mg Documented By: CEF Lisinopril (Lisinopril 2.5 Mg Tab) 2.5 mg PO DAILY [facility] Stop: 06/30/23 10:32 Last Admin: 05/31/23 11:19 Dose: 2.5 mg Documented By: CEF Metoprolol Succinate (Metoprolol Succ 50mg Ext Rel Tab) 50 [facility] Stop: 06/30/23 10:32 Last Admin: 05/31/23 11:19 Dose: 50 mg Documented By: CEF Miscellaneous (Biktarvy ~ Order Awaiting Action) 1 each N/A QS [facility] Stop: 06/30/23 10:59 Last Admin: 05/31/23 11:21 Dose: Not Given Documented By: CEF Oxybutynin Chloride (Oxybutynin Chloride Xl 5 Mg Tabcr) [address] [facility] Stop: 06/30/23 10:32 Last Admin: 05/31/23 11:19 Dose: 5 mg Documented By: CEF Pantoprazole Sodium (Pantoprazole 40 Mg Tab) [address] [facility] Stop: 06/30/23 10:32 Last Admin: 05/31/23 11:20 Dose: 40 mg Documented By: CEF Venlafaxine HCl (Venlafaxine Hcl Xr 75 Mg Capxr) 225 mg PO QAM [facility] Stop: 06/30/23 10:32 Last Admin: 05/31/23 11:20 Dose: 225 mg Documented By: CEF Vitamin D (Cholecalciferol 125 Mcg (5,000 Units) Tab) 125 mcg PO QAM [facility] Stop: 06/30/23 10:32 Last Admin: 05/31/23 11:17 Dose: 125 mcg Documented By: CEF Discontinued Medications Sodium Chloride (Nss) 500 mls @ 999 mls/hr IV .Q31M ONE Stop: 05/31/23 07:29 Last Infusion: 05/31/23 08:07 Dose: Infused Documented By: Admin: 05/31/23 07:39 Dose: 999 mls/hr Documented By: CAPRI Imaging Data Radiologist's Impression: Head CT 05/31/23 05:52 CT head/brain wo con CLINICAL HISTORY: altered mental status Technique: Contiguous axial CT images of the head were acquired from the base of the skull to the vertex without intravenous contrast administration. Images were viewed in brain, subdural and bone windows. Automated dose lowering techniques and/or adjustment according to patient size were utilized for this exam. Comparison: Comparison is made to CT head 03/02/2023 Findings: Areas of decreased attenuation are present in the periventricular and subcortical white matter bilaterally consistent with small vessel ischemic disease. Generalized cerebral atrophy with commensurate enlargement of the ventricles, sulci, and cisterns is also present. There is no acute intracranial hemorrhage or evidence of acute territorial infarction. No shift of the midline structures, mass effect, or extra-axial abnormalities are shown. Atherosclerotic calcifications are present in the intracranial segments of the internal carotid arteries. Calcifications of the falx noted. Imaged portions of the paranasal sinuses and mastoid air cells are clear. The orbits appear normal. There are no acute fractures of the calvaria or scalp swelling. Impression: No acute intracranial hemorrhage, no evidence of acute territorial infarction or other acute intracranial disease process. ACT 112: Negative or not required by law. Electronically signed by: Charlie Cheung M.D. 05/31/2023 6:52 AM Chest X-Ray 05/31/23 06:45 XR chest 1V portable CLINICAL HISTORY: AMS, fall TECHNIQUE: Single frontal radiograph of the chest was obtained. Comparison: Comparison is made to chest radiograph 03/02/2023 FINDINGS: No lines and tubes are seen. The cardiomediastinal silhouette is normal. The lungs are clear. No evidence of pleural effusion or pneumothorax. IMPRESSION: No acute chest disease. ACT 112: Negative or not required by law. Electronically signed by: Charlie Cheung M.D. 05/31/2023 7:35 AM Foot X-Ray 05/31/23 06:59 XR foot LT min 3V routine, XR foot RT min 3V routine CLINICAL HISTORY: fall, abrasions to toes. Bilateral foot pain. COMPARISON STUDY: Bilateral feet 02/13/2023. FINDINGS: Mildly impacted fractures at the bases of the left second, fourth, and fifth proximal phalanges with likely intra-articular extension. These are at the similar location to the 02/13/2023 examination but appear to be acute fractures. No additional fractures within the left foot. No acute fractures within the right foot. Vascular calcifications are noted. The Lisfranc joints are intact. IMPRESSION: 1. Mildly impacted fractures at the bases of the left second, fourth, and fifth proximal phalanges with likely intra-articular extension. These are at the similar location to the 02/13/2023 examination but appear to be acute fractures. 2. No acute fractures within the right foot. ACT 112: Negative or not required by law. Electronically signed by: Isaac Alexander M.D. 05/31/2023 7:47 AM Foot X-Ray 05/31/23 06:59 XR foot LT min 3V routine, XR foot RT min 3V routine CLINICAL HISTORY: fall, abrasions to toes. Bilateral foot pain. COMPARISON STUDY: Bilateral feet 02/13/2023. FINDINGS: Mildly impacted fractures at the bases of the left second, fourth, and fifth proximal phalanges with likely intra-articular extension. These are at the similar location to the 02/13/2023 examination but appear to be acute fractures. No additional fractures within the left foot. No acute fractures within the right foot. Vascular calcifications are noted. The Lisfranc joints are intact. IMPRESSION: 1. Mildly impacted fractures at the bases of the left second, fourth, and fifth proximal phalanges with likely intra-articular extension. These are at the similar location to the 02/13/2023 examination but appear to be acute fractures. 2. No acute fractures within the right foot. ACT 112: Negative or not required by law. Electronically signed by: Isaac Alexander M.D. 05/31/2023 7:47 AM Discharge Plan Visit Data Chief Complaint: Altered Mental Status Stated Complaint: FOUND OUTSIDE, DEMENTIA ED Provider: Gianluca Maier Discharge Problem: AMS (altered mental status), Hypothermia, CHI (closed head injury), Abrasion of toe, left, Abrasion of toe, right, Fall, Rhabdomyolysis Patient Disposition: Admitted As Inpatient Discharge Instructions Interventions: ED Discharge Assessment Last Done: 05/31/23 09:48
--- NOTE | 2023-05-31 07:36 | XRay Report ---
XR chest 1V portable CLINICAL HISTORY: AMS, fall TECHNIQUE: Single frontal radiograph of the chest was obtained. Comparison: Comparison is made to chest radiograph 03/02/2023 FINDINGS: No lines and tubes are seen. The cardiomediastinal silhouette is normal. The lungs are clear. No evid ence of pleural effusion or pneumothorax. IMPRESSION: No acute chest disease. ACT 112: Negative or not required by law. Electronically signed by: Charlie Cheung M.D. 05/31/2023 7:35 AM
[2023-05-31] MEDS: SODIUM CHLORIDE 0.9% 500 ML IV ONE (07:39)
--- NOTE | 2023-05-31 07:48 | XRay Report ---
XR foot LT min 3V routine, XR foot RT min 3V routine CLINICAL HISTORY: fall, abrasions to toes. Bilateral foot pain. COMPARISON STUDY: Bilateral feet 02/13/2023. FINDINGS: Mildly impacted fractures at the bases of the left second, fourth, and fifth proximal phala nges with likely intra-articular extension. These are at the similar location to the 02/13/2023 exami nation but appear to be acute fractures. No additional fractures within the left foot. No acute fract ures within the right foot. Vascular calcifications are noted. The Lisfranc joints are intact. IMPRESSION: 1. Mildly impacted fractures at the bases of the left second, fourth, and fifth proximal phalanges wi th likely intra-articular extension. These are at the similar location to the 02/13/2023 examination but appear to be acute fractures. 2. No acute fractures within the right foot. ACT 112: Negative or not required by law. Electronically signed by: Isaac Alexander M.D. 05/31/2023 7:47 AM
[2023-05-31 07:54] LABS: Appearance Urine Clear (Clear); Bilirubin Urine Negative (Negative); Blood Urine Negative (Negative); Color Urine Yellow; Glucose Urine UA 3+ (Negative); Ketones Urine Trace (Negative); Leukocyte Esterase Urine Negative (Negative); Nitrite Urine Negative (Negative); Protein Urine Negative (Negative); Specific Gravity Urine 1.031 (1.000-1.030); Urobilinogen Urine Negative (Negative); pH Urine 5.5 (4.5-7.5)
[2023-05-31] MEDS: SODIUM CHLORIDE 0.9% 1,000 ML IV SCH (08:08)
[2023-05-31 08:33] LABS: Amphetamines+Metham, Urine Neg (Neg); Barbiturates, Urine Neg (Neg); Benzodiazepine, Urine Neg (Neg); Cocaine, Urine Neg (Neg); MDMA (Ecstacy), Urine Pos (Neg); Marijuana, Urine Pos (Neg); Methadone, Urine Neg (Neg); Opiate, Urine Neg (Neg); Phencyclidine, Urine Neg (Neg)
[2023-05-31 08:54] LABS: Influenza A virus by PCR Negative (Neg); Influenza B virus by PCR Negative (Neg); RSV by PCR Negative (Neg); SARS CoV2 RNA(COVID-19) Ceph NEGATIVE (Negative)
--- NOTE | 2023-05-31 10:24 | History & Physical Report ---
Date of Service May 31, 2023 Assessment & Plan (1) Rhabdomyolysis: Plan: Found to have mild rhabdomyolysis, probably from fall and being on the floor for some time -Started on aggressive IV fluids Recheck CPK (2) Fall: Plan: Patient lives alone, and is fallen a few times in the past Consult physical therapy (3) Fracture of phalanx of left foot, closed: Plan: Left foot fracture, present during the last admission Was followed by podiatry Dr. Singleton Will consult him (4) HIV disease: Plan: Continue HAART (5) Type 2 diabetes mellitus: Plan: On glipizide and Invokana at home Will institute insulin sliding scale Blood glucose under fair control. Plan During his last admission, patient was evaluated by psychiatry and deemed to be a couple of making his own decisions Office of aging has been contacted and suggest moderate with frequent symptoms she PAD is going to complete a 302 on the patient for inability to care for himself due to his mental health. History of Present Illness Chief Complaint: fall, Primary Care Provider: Wendy Garcia MD This is a 59-year-old male with a previous history of syphilis, HIV on HAART, hypertension, type 2 diabetes, polyneuropathy anxiety depression, who was brought to the hospital today after he was found wandering around his apartment area. He was found down, suggesting he fell and was there for Epidural time, he presented with multiple abrasions on the toes and on his face. Upon arrival at the emergency department, he was hypothermic, temperature was 34.4 he was placed on Daf[place] hugger. CT scan of the head and chest x-ray did not show any acute pathology however x-ray of the foot showed left foot fracture which with the in the previous hospital admission in January 2023. During his last admission, he was assessed by psychiatry because of his visual hallucinations. 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 Surprisingly he had a mini cognitive exam in July 2021 was normal on the Mini-Mental exam score of 28. Patient lives alone by himself however upon further questioning he stated he has Meals on Wheels and makes food for himself and has some family members who occasionally visits him. Office of aging has been contacted and due to inability of the patient to take care of himself at home he will be admitted to the hospital. Allergies Allergy/AdvReac Type Severity Reaction Status Date / Time Penicillins Allergy Mild RASH Verified 03/07/23 14:28 metformin AdvReac Intermediate Diarrhea Verified 03/07/23 14:28 Home Medications Medication Instructions Recorded Confirmed Type aspirin 81 mg tablet,delayed 81 mg PO HS #30 tabs 12/19/18 05/31/23 History release cholecalciferol (vitamin D3) 125 5,000 units PO QAM 12/19/18 05/31/23 History mcg (5,000 unit) tablet nitroglycerin 0.4 mg sublingual 0.4 mg sublingual Q5M PRN chest 12/19/18 05/31/23 History tablet pain #30 tabs vit A 7,160 unit-vit C 113 mg-vit 1 tab PO PM 02/15/21 05/31/23 History E 100 aefu-[id number]-[id number] tablet ibuprofen 200 mg capsule 400 mg (2 x 200 mg) PO Q8H PRN 05/29/21 05/31/23 Rx pain #30 caps venlafaxine 225 mg tablet,extended 225 mg PO QAM #90 tabs 09/12/21 05/31/23 Rx release 24 hr bictegravir 50 mg-emtricitabine 1 tab PO DAILY 12/20/21 05/31/23 History 200 mg-tenofovir alafenam 25 mg tablet (Biktarvy) OneTouch Ultra2 Meter #1 ea 06/07/22 02/13/23 Rx (blood-glucose meter) OneTouch UltraSoft Lancets #200 ea 06/07/22 02/13/23 Rx (lancets) blood sugar diagnostic (OneTouch #200 ea 06/07/22 02/13/23 Rx Ultra Test strips) metoprolol succinate 50 mg 50 mg PO QAM #90 tabs 08/14/22 05/31/23 Rx tablet,extended release 24 hr atorvastatin 40 mg tablet 40 mg PO HS #84 tabs 10/05/22 05/31/23 Rx ezetimibe 10 mg tablet (Zetia) 10 mg PO HS #84 tabs 10/05/22 05/31/23 Rx oxybutynin chloride 5 mg 5 mg PO QAM #84 tabs 10/05/22 05/31/23 Rx tablet,extended release 24 hr pantoprazole 40 mg tablet,delayed 40 mg PO QAM #84 tabs 10/05/22 05/31/23 Rx release isosorbide mononitrate 30 mg 90 mg (3 x 30 mg) PO QAM #90 tabs 11/06/22 05/31/23 Rx tablet,extended release 24 hr glipizide 10 mg tablet 10 mg PO BID #180 tabs 12/13/22 05/31/23 Rx cyanocobalamin (vitamin B-12) 1,000 mcg PO QAM #30 tabs 01/23/23 05/31/23 Rx 1,000 mcg tablet (Vitamin B-12) empagliflozin 25 mg tablet 25 mg PO QAM #30 tabs 01/30/23 05/31/23 Rx (Jardiance) gabapentin 800 mg tablet 800 mg PO TID #84 tabs 01/30/23 05/31/23 Rx lisinopril 2.5 mg tablet 2.5 mg PO QAM 02/12/23 05/31/23 History food supplemt, lactose-reduced 1 ea PO DAILY #7,110 mL 03/30/23 05/31/23 Rx (Ensure Original oral liquid) aripiprazole 2 mg tablet 2 mg PO HS 05/31/23 05/31/23 History bupropion HCl 150 mg 24 hr tablet, 150 mg PO QAM 05/31/23 05/31/23 History extended release bupropion HCl 300 mg 24 hr tablet, 300 mg PO QAM 05/31/23 05/31/23 History extended release Past Med/Surg History Medical History Ambulatory dysfunction Terrance Bonnet syndrome Exposure to COVID-19 virus Abdominal pain, acute, right lower quadrant Acute appendicitis Sensorineural hearing loss of both ears Mixed conductive and sensorineural hearing loss of left ear with restricted hearing of right ear Cleft palate Cleft lip Deep vein thrombosis Fall 2016 Left Leg with unknown reasoning. Osteoarthritis Basal cell carcinoma Spinal stenosis Macular degeneration Lumbosacral radiculopathy Idiopathic polyneuropathy Hypertension Hyperlipidemia Hearing loss Gastroesophageal reflux disease Depression Degenerative disc disease, lumbar Coronary artery disease Colon polyps Heart attack 2016 & November 2017 Injury of left shoulder Acute myocardial infarction Surgical History History of laparoscopic appendectomy (05/28/21) History of cleft lip History of colonoscopy History of esophagogastroduodenoscopy (EGD) History of carpal tunnel release History of laminectomy Hx of local excision of skin lesion History of heart artery stent History of cardiac catheterization History of placement of ear tubes History of tonsillectomy and adenoidectomy History of sinus surgery History of rotator cuff surgery Family History Mother Cancer Cardiac disorder Colorectal cancer Father Cardiac disorder Myocardial infarction Brother Diabetes Grandmother (Maternal) Diabetes Denies family history of No pertinent family history Ovarian cancer Prostate cancer Breast cancer Social History Smoking Status: Current every day smoker Tobacco Type: Cigarettes Cigarettes Per Day: 20; Second Hand Exposure: No; Do You Dip or Chew Tobacco: No; Hx Alcohol Use: Yes Alcohol type: beer, wine and hard liquor Hx Substance Use: Yes Last Used Substance: Just Prior to Arrival Preferred Language: Belarusian Communication Ability: Effective Visual Impairment: No Limitations Hearing Ability: Hard of Hearing 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 Physical Exam Physical Exam: The patient is awake, alert and oriented 3, well developed and well nourished, normocephalic and atraumatic, lying in bed and in no acute distress. HEENT--PERRL, EOMI, mucous membranes and oropharynx mildly dry Neck--supple. No JVD. No bruits. Thyroid normal, trachea midline, no adenopathy. Heart--normal S1 and S2. No murmurs, rubs or gallops. Lungs--clear bilaterally, no respiratory distress, no accessory muscle use. Abdomen--normal bowel sounds and soft. Mild epigastric and left sided abdominal pain Extremities--no cyanosis or clubbing. No edema. Dermatologic--normal skin turgor, normal color, no abnormal lymph nodes, no rash. Neurologic--cranial nerves II through XII grossly intact. Rheumatologic--normal range of motion. Psychiatric--normal affect. Results & Data Results & Data Vital Signs (Past 12 Hours) Vital Signs Temp Pulse Resp BP Pulse Ox O2 Del Method 05/31/23 09:34 97.5 F L 05/31/23 09:30 80 20 125/75 96 Room Air 05/31/23 09:05 97.3 F L 05/31/23 09:00 82 21 128/77 94 Room Air 05/31/23 08:41 97.7 F 05/31/23 08:35 97.0 F L 05/31/23 08:30 78 18 111/70 96 Room Air 05/31/23 08:09 96.8 F L 05/31/23 08:00 86 24 110/72 98 Room Air 05/31/23 07:39 96.3 F L 05/31/23 07:35 75 12 122/77 99 Room Air 05/31/23 07:00 84 16 98 Room Air 05/31/23 06:14 98 Room Air 05/31/23 05:57 84 05/31/23 05:51 94 F L 83 14 133/81 96 Room Air PG Care Time/CCT Total # of Minutes Spent Total Time Spent with Patient: Total time spent is greater than 50% in coordination of care (as documented) at patient's floor/unit and/or counseling patient: Coding Level of Care Code 28301 INT INP/OBS CARE 3/75MIN Diagnoses Rhabdomyolysis M62.82 Fall W19.XXXA Fracture of phalanx of left foot, closed S92.912A HIV disease B20 Type 2 diabetes mellitus E11.9 Time Spent (min) 75
[2023-05-31] MEDS ORDERED: ONDANSETRON INJ 2 MG/ML 2 ML VIAL IV PRN (10:33)
[2023-05-31] MEDS ORDERED: GLUCAGON FOR INJ 1 MG VIAL IM PRN (11:00)
[2023-05-31] MEDS ORDERED: GLUCOSE 40% GEL 15 GM TUBE PO PRN (11:00)
[2023-05-31] MEDS ORDERED: DEXTROSE 50% 50 ML SYRINGE IV PRN (11:00)
[2023-05-31] MEDS ORDERED: GLUCOSE 10 TAB/TUBE PO PRN (11:00)
[2023-05-31] MEDS: EMPAGLIFLOZIN 25 MG TAB PO SCH (11:17)
[2023-05-31] MEDS: CHOLECALCIFEROL 125 MCG (5,000 UNITS) TAB PO SCH (11:17)
[2023-05-31] MEDS: GABAPENTIN 800 MG TAB PO SCH (11:18)
[2023-05-31] MEDS: ISOSORBIDE MONO EXTENDED REL 30 MG TABCR PO SCH (11:18)
[2023-05-31] MEDS: OXYBUTYNIN CHLORIDE XL 5 MG TABCR PO SCH (11:19)
[2023-05-31] MEDS: lisinopril 2.5 MG TAB PO SCH (11:19)
[2023-05-31] MEDS: METOPROLOL SUCC 50MG EXT REL TAB PO SCH (11:19)
[2023-05-31] MEDS: VENLAFAXINE HCL XR 75 MG CAPXR PO SCH (11:20)
[2023-05-31] MEDS: PANTOprazole 40 MG TAB PO SCH (11:20)
[2023-05-31] MEDS: CYANOCOBALAMIN (B-12) 500 MCG TABLET PO SCH (11:21)
--- NOTE | 2023-05-31 11:52 | Psychiatric Consultation ---
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 He also has poor hearing and polyneuropathy and frequent falls which are likely related to the aforementioned sensory issues. He is followed on an outpatient basis by psychiatry but at present we don't have a recent medication list. A note from February 2023 that is copied into his chart here reflects that aripiprazole was going to be started. At present he is delirious and has no idea why he's here. The delirium is sufficiently pronounced that I can't really assess any other potential issues including any possible underlying cognitive impairment. The delirium is likely multifactorial, but a likely primary contributor is his recent hypothermia and rhabdomyolysis However, irrespective of any possible cognitive issues, pt's poor vision, frequent convincing visual hallucinations, poor hearing, and frequent falls suggest that his ability to manage safely in a 4th floor apartment has reached its end. Overall I spent a total of 58 minutes on the floor for this consultation assessment including review of chart records, review of test results, direct evaluation of the patient [id number], risk assessment, discussion with the psychiatric liaison nurse, and documentation in the electronic health record. (1) Delirium: (2) Terrance Bonnet syndrome: (3) Depression: Plan The patients 302 warrant has been dispositioned as on exam, the patient is not in need of emergency psychiatric treatment because his primary symptoms are of delirium due to medical problems. He is very confused due to the delirium. If the patient attempts to leave AMA, please notify psychiatry so we can re-eval uate him. A new 302 petition and warrant would need to be obtained. He does not currently have capacity to make medical decisions, so substituted judgment will need to be obtained from next of kin. He may well have a durable power of attorney lawyer for healthcare, which if true would be helpful. Recommend trial of quetiapine 25 mg PO Q6H PRN psychosis Continue venlafaxine XR 225 mg daily Psych History Identifying Data CAL STINSON is a 67-year-old M with a history of depression and Terrance Bonnet Syndrome, admitted on 05/31/2023 for rhabdomyolysis. Consult is by the hospitalist service for "psych eval and follow up". Chief Complaint "Hey, Mark! Do you know what happened to Steven?". History of Present Illness As part of a thorough review of the available medical records, I have read and incorporated into my assessment the following note by the ED physician: "Patient presented because of a fall. He was found outside for an extended period of time. He cannot give great details. Patient was found to have multiple abrasions on his toes bilaterally. He also an abrasion of the left eyebrow. A workup was initiated. He was hypothermic with a body temperature down to 34.4. He was placed on a Dafne hugger and given warmed fluids. Patient's ECG showed a sinus rhythm. Patient had unremarkable CBC. Chemistry panel revealed a mildly low CO2 and anion gap. Glucose was 120. X-ray imaging of the chest as well as feet bilaterally was ordered. Head CT was performed and did not reveal any acute findings. Patient is exhibiting some hallucinations. He has had problems like this in the past. Patient was also noted to have multiple visits last year for various reasons. Given his fall, hypothermia, and social situation case management was involved. Discussed admission and further evaluation of his case out of concerns for safety for the patient. Consultation was made with the [facility] hospitalist service. Case was discussed and diagnostics were reviewed. Patient was evaluated in the ER and admitted for further management." "67 year old Male arrives for evaluation of altered mental status. Patient has a history of dementia, HIV, hyperlipidemia hypertension. Patient was reportedly found outside. He was out for many hours crawling around on the ground. He had an obvious fall with an abrasion over the left eyebrow. He also had abrasions to his toes bilaterally. Patient denies any pain. He is unsure how he got on the ground. He is unsure if he was struck by someone or if he fell. Patient was noted to have some hallucinations per EMS and nursing. Patient does have a history of this in the past. Patient states he has not been eating and drinking well. States he is taking his medications. Patient does admit to using marijuana. Denies any recent medical illness. Pt denies LOC, headache, fevers, chills, diaphoresis, visual changes, neck pain, chest pain, breathing difficulties, nausea, vomiting, abdominal pain, back pain, melena, hematochezia, urinary symptoms, numbness, weakness, lymphadenopathy, rash, or other complaints." and the following note by the hospitalist: "This is a 59-year-old male with a previous history of syphilis, HIV on HAART, hypertension, type 2 diabetes, polyneuropathy anxiety depression, who was brought to the hospital today after he was found wandering around his apartment area. He was found down, suggesting he fell and was there for Epidural time, he presented with multiple abrasions on the toes and on his face. Upon arrival at the emergency department, he was hypothermic, temperature was 34.4 he was placed on Dafne hugger. CT scan of the head and chest x-ray did not show any acute pathology however x-ray of the foot showed left foot fracture which with the in the previous hospital admission in January 2023. During his last admission, he was assessed by psychiatry because of his visual hallucinations. 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 Surprisingly he had a mini cognitive exam in July 2021 was normal on the Mini-Mental exam score of 28. Patient lives alone by himself however upon further questioning he stated he has Meals on Wheels and makes food for himself and has some family members who occasionally visits him. Office of aging has been contacted and due to inability of the patient to take care of himself at home he will be admitted to the hospital." Review of the medical record reveals he had ED visit 12/31/2023, 2 ED visits 03/02/2023, and ED visit 03/26/2023 all with hallucinosis that appeared to be related to his diagnosis of Terrance Bonnet Syndrome. He was seen consultatively by psychiatry during an admission February [id number] for cellulitis. Although he's said to have a "history of dementia", when I saw him on 02/20/2023 I did not see much evidence of this. At a PCP visit on 03/07/2023 he was thought to be back to his cognitive baseline and an outpatient psychiatry note on 03/13/2023 made no mention of cognitive impairment. Mini-Cog on 08/02/2022 was 5/5. He is followed by neurology and MMSE at neurology appointment 02/08/2024 was 2830 (normal range). Review of pertinent labs reveals they are significant for elevated CK of 947 U/L, low CO2, anion gap of 14. A urine toxicology screen was positive for metabolites of MDMA (almost certainly because he's on bupropion) and cannabis. BAL was <10 mg/dL. 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 He lives in a 4th-floor apartment (in a building with an elevator) in a where there's nothing to which he can walk. Last time I saw him he told me that he enjoys audiobooks and can still see movies in a theater but has trouble seeing TV, and reading printed matter is very challenging even with magnification. He has never had much in the way of hobbies and feels isolated and bored. His medical history is significant for history of depression, anxiety, CAD, HTN, HLD, idiopathic polyneuropathy, B12 deficiency, mixed conductive and sensorineural hearing loss, HIV on HAART therapy, macular degeneration, Terrance Bonnet syndrome, GERD, ambulatory dysfunction, and chronic back pain. Today, pt is oriented only to person and, to a varying degree, [facility] in [place], [place]. He confabulates recognizing me as "Mark" after I introduced myself. He asks "what happened to Steven" and refers to "the wonderful picture of the two of you together from the yearbook supplement". He initially said he had no idea why he's here, then when I pointed out the dressings on his leg confabulates that he "went over the handlebars on the bike at the top of the hill". He doesn't respond directly to any questions. While this might be related to his poor hearing, I did shout some questions directly into his ears only to have him say things entirely unrelated to those questions. A few minutes after I initially pointed out the dressings and boot on his leg he had clearly completely lost track of that information and was again surprised to see them. He is very animated at times, sitting up in bed, while at other times he lies back and looks off to the side and appears to lose track of my presence. Past Psychiatric History Current Psychiatric Diagnosis: depression, anxiety Previous Psych Admissions: none Do You Have Access To A Gun?: No History of Previous Suicide Attempt: No Allergies Allergy/AdvReac Type Severity Reaction Status Date / Time Penicillins Allergy Mild RASH Verified 03/07/23 14:28 metformin AdvReac Intermediate Diarrhea Verified 03/07/23 14:28 Home Medications Medication Instructions Recorded Confirmed Type aspirin 81 mg tablet,delayed 81 mg PO HS #30 tabs 12/19/18 05/31/23 History release cholecalciferol (vitamin D3) 125 5,000 units PO QAM 12/19/18 05/31/23 History mcg (5,000 unit) tablet nitroglycerin 0.4 mg sublingual 0.4 mg sublingual Q5M PRN chest 12/19/18 05/31/23 History tablet pain #30 tabs vit A 7,160 unit-vit C 113 mg-vit 1 tab PO PM 02/15/21 05/31/23 History E 100 [id number] tablet ibuprofen 200 mg capsule 400 mg (2 x 200 mg) PO Q8H PRN 05/29/21 05/31/23 Rx pain #30 caps venlafaxine 225 mg tablet,extended 225 mg PO QAM #90 tabs 09/12/21 05/31/23 Rx release 24 hr bictegravir 50 mg-emtricitabine 1 tab PO DAILY 12/20/21 05/31/23 History 200 mg-tenofovir alafenam 25 mg tablet (Biktarvy) OneTouch Ultra2 Meter #1 ea 06/07/22 02/13/23 Rx (blood-glucose meter) OneTouch UltraSoft Lancets #200 ea 06/07/22 02/13/23 Rx (lancets) blood sugar diagnostic (OneTouch #200 ea 06/07/22 02/13/23 Rx Ultra Test strips) metoprolol succinate 50 mg 50 mg PO QAM #90 tabs 08/14/22 05/31/23 Rx tablet,extended release 24 hr atorvastatin 40 mg tablet 40 mg PO HS #84 tabs 10/05/22 05/31/23 Rx ezetimibe 10 mg tablet (Zetia) 10 mg PO HS #84 tabs 10/05/22 05/31/23 Rx oxybutynin chloride 5 mg 5 mg PO QAM #84 tabs 10/05/22 05/31/23 Rx tablet,extended release 24 hr pantoprazole 40 mg tablet,delayed 40 mg PO QAM #84 tabs 10/05/22 05/31/23 Rx release isosorbide mononitrate 30 mg 90 mg (3 x 30 mg) PO QAM #90 tabs 11/06/22 05/31/23 Rx tablet,extended release 24 hr glipizide 10 mg tablet 10 mg PO BID #180 tabs 12/13/22 05/31/23 Rx cyanocobalamin (vitamin B-12) 1,000 mcg PO QAM #30 tabs 01/23/23 05/31/23 Rx 1,000 mcg tablet (Vitamin B-12) empagliflozin 25 mg tablet 25 mg PO QAM #30 tabs 01/30/23 05/31/23 Rx (Jardiance) gabapentin 800 mg tablet 800 mg PO TID #84 tabs 01/30/23 05/31/23 Rx lisinopril 2.5 mg tablet 2.5 mg PO QAM 02/12/23 05/31/23 History food supplemt, lactose-reduced 1 ea PO DAILY #7,110 mL 03/30/23 05/31/23 Rx (Ensure Original oral liquid) aripiprazole 2 mg tablet 2 mg PO HS 05/31/23 05/31/23 History bupropion HCl 150 mg 24 hr tablet, 150 mg PO QAM 05/31/23 05/31/23 History extended release bupropion HCl 300 mg 24 hr tablet, 300 mg PO QAM 05/31/23 05/31/23 History extended release Patient History Medical History (Updated 05/31/23 @ 15:51 by Steven Koo MD) Delirium Ambulatory dysfunction Terrance Bonnet syndrome Exposure to COVID-19 virus Abdominal pain, acute, right lower quadrant Acute appendicitis Sensorineural hearing loss of both ears Mixed conductive and sensorineural hearing loss of left ear with restricted hearing of right ear Cleft palate Cleft lip Deep vein thrombosis Fall 2016 Left Leg with unknown reasoning. Osteoarthritis Basal cell carcinoma Spinal stenosis Macular degeneration Lumbosacral radiculopathy Idiopathic polyneuropathy Hypertension Hyperlipidemia Hearing loss Gastroesophageal reflux disease Depression Degenerative disc disease, lumbar Coronary artery disease Colon polyps Heart attack 2016 & November 2017 Injury of left shoulder Acute myocardial infarction Surgical History (Updated 03/15/23 @ 00:12 by Liezt Kennedy) History of laparoscopic appendectomy (05/28/21) Laparoscopic Appendectomy - David Huffman MD, FACS 05/28/2021 History of cleft lip cleft lip repair only. History of colonoscopy History of esophagogastroduodenoscopy (EGD) History of carpal tunnel release bilateral History of laminectomy Hx of local excision of skin lesion from Left eyelid History of heart artery stent total of 3-4 stents. 1-2 stent in 2017 ([facility]), 1 stent in Nov 2017 ([facility]), 1 stent Nov 2018 ([facility]) drug eluting stent placed. History of cardiac catheterization History of placement of ear tubes "History of ear pressure equalization tube insertion" History of tonsillectomy and adenoidectomy History of sinus surgery History of rotator cuff surgery left Family History Mother Cancer Cardiac disorder Colorectal cancer Father Cardiac disorder Myocardial infarction Brother Diabetes Grandmother (Maternal) Diabetes Denies family history of No pertinent family history Ovarian cancer Prostate cancer Breast cancer Social History Smoking Status: Current every day smoker Tobacco Type: Cigarettes Cigarettes Per Day: 20; Second Hand Exposure: No; Do You Dip or Chew Tobacco: No; Hx Alcohol Use: Yes Alcohol type: beer Hx Substance Use: Yes Last Used Substance: Hours (ago) Preferred Language: Ugandan Communication Ability: Effective Visual Impairment: No Limitations Hearing Ability: Hard of Hearing Lan Administrator Required: No Beliefs That Will Affect Care: None marital status: Single Current Living Situation: Alone current occupational status: retired current occupation: Retired Feels Safe at Home: Yes Childhood Exposure to Second-Hand Smoke: No Seatbelt Use: always Do you think of yourself as: lesbian/ulrich/homosexual Assistive Devices: None Physical Exam Psychiatric: Orientation: oriented to person and cooperative; + not alert (level of arousal fluctuates over the course of the exam), + not oriented to place (inconsistently recognizes he "in [facility]") and + not oriented to time confabulates reason he's here Apperance: appropriately dressed and + disheveled Eye Contact: + fair eye contact (variable) restless at times Speech: normal rate/rhythm/volume of speech Affect: euthymic affect Mood: no depressed mood, no anxious mood, no irritable mood and no angry mood Thought Process: + confabulations; + thought process not clear or coherent copious confabulation Suicidal Thoughts: + reports suicidal thoughts Homicidal Thoughts: + reports homicidal thoughts Hallucinations: + visual hallucinations Cognition: remote memory grossly intact; + recent memory not intact and + attention not intact Estimated Intelligence: consistent with education level Insight: + severely impaired insight Judgment: + impaired judgement Vital Signs (Past 24 Hours): Last Vital Signs Temp 36.5 C 05/31/23 10:26 Pulse 80 05/31/23 10:26 Resp 18 05/31/23 10:26 BP 114/72 05/31/23 10:26 Pulse Ox 96 05/31/23 10:26 O2 Del Method Room Air 05/31/23 10:26 Exam Statement: Physical exams were performed in the ED and by the admitting hospitalist for the purposes of medical clearance. I accept those physicals as correct and adequate and have incorporated that information into my assessment. Review of Systems pt does not respond directly to any questions Results & Data (PSY) Medications Administered Cyanocobalamin (Cyanocobalamin (B-12) 500 Mcg Tablet) 1,000 mcg PO QAM [facility] Stop: 06/30/23 10:59 Last Admin: 05/31/23 11:21 Dose: 1,000 mcg Documented By: CEF Empagliflozin ([facility]lozin 25 Mg Tab) [facility] Stop: 06/30/23 10:32 Last Admin: 05/31/23 11:17 Dose: 25 mg Documented By: CEF Gabapentin (Gabapentin 800 Mg Tab) 800 mg PO TID [facility] Stop: 06/30/23 10:32 Last Admin: 05/31/23 11:18 Dose: 800 mg Documented By: CEF Sodium Chloride (Nss) 1,000 mls @ 125 mls/hr IV .Q8H [facility] Stop: 06/30/23 06:59 Last Admin: 05/31/23 10:44 Dose: 125 mls/hr Documented By: Infusion: 05/31/23 10:44 Dose: Infused Documented By: Admin: 05/31/23 08:08 Dose: 125 mls/hr Documented By: CAPRI Isosorbide Mononitrate (Isosorbide Rich Extended Rel 30 Mg Tabcr) 90 mg PO QAM [facility] Stop: 06/30/23 10:32 Last Admin: 05/31/23 11:18 Dose: 90 mg Documented By: CEF Lisinopril (Lisinopril 2.5 Mg Tab) 2.5 mg PO DAILY [facility] Stop: 06/30/23 10:32 Last Admin: 05/31/23 11:19 Dose: 2.5 mg Documented By: CEF Metoprolol Succinate (Metoprolol Succ 50mg Ext Rel Tab) [facility] Stop: 06/30/23 10:32 Last Admin: 05/31/23 11:19 Dose: 50 mg Documented By: CEF Miscellaneous (Biktarvy ~ Order Awaiting Action) 1 each N/A QS [facility] Stop: 06/30/23 10:59 Last Admin: 05/31/23 11:21 Dose: Not Given Documented By: CEF Oxybutynin Chloride (Oxybutynin Chloride Xl 5 Mg Tabcr) 5 mg [facility] Stop: 06/30/23 10:32 Last Admin: 05/31/23 11:19 Dose: 5 mg Documented By: CEF Pantoprazole Sodium (Pantoprazole 40 Mg Tab) 40 mg PO [facility] Stop: 06/30/23 10:32 Last Admin: 05/31/23 11:20 Dose: 40 mg Documented By: CEF Venlafaxine HCl (Venlafaxine Hcl Xr 75 Mg Capxr) 225 mg PO [facility] Stop: 06/30/23 10:32 Last Admin: 05/31/23 11:20 Dose: 225 mg Documented By: CEF Vitamin D (Cholecalciferol 125 Mcg (5,000 Units) Tab) 125 mcg PO [facility] Stop: 06/30/23 10:32 Last Admin: 05/31/23 11:17 Dose: 125 mcg Documented By: CEF Coding Level of Care Code [address] [facility] Intl Hosp Care Lvl 3 Diagnoses Delirium R41.0 Terrance Bonnet syndrome H53.16 Depression F32.9 Time Spent (min) 58
--- NOTE | 2023-05-31 11:53 | Electrocardiogram Report ---
Test Reason : Blood Pressure : / mmHG Vent. Rate : 083 BPM Atrial Rate : 083 BPM P-R Int : 214 ms QRS Dur : 098 ms QT Int : 402 ms P-R-T Axes : 039 028 038 degrees QTc Int : 472 ms Sinus rhythm with 1st degree A-V block Otherwise normal ECG When compared with ECG of 02-MAR-2023 05:23, CO interval has increased Confirmed by French Ackerman ([id number]) on 05/31/2023 11:53:27 AM Referred By: Confirmed By:French Ackerman
[2023-05-31] MEDS: ACETAMINOPHEN 325 MG TAB PO PRN (11:55)
[2023-05-31] MEDS: INSULIN ASPART PER UNIT CHARGE SC SCH (13:02)
--- OUTSIDE RECORDS SUMMARY | 2023-05-31 15:41 | External Medical Summary | Summary of Care ---
Author Name Unknown Organization [facility] Address [address] [facility] [place] [address] Phone [phone] Care Team Providers Care Medical Intern Name Role Phone Wendy Cui MD [facility] Care Provider Encounter Details Date Type Department Care Team (Late st Contact Info) Description 02/27/2023 Telephone Neurology [facility] [place] [address] [place] [address] Brooke Carty PA-C [address] [place] [address] Allergies Active Allergy Reactions Criticality Noted Date Comments Penicillins Rash 03/17/2016 documented as of this encounter (statuses as of 05/29/2023) Medications Medication Sig Dispensed Refills Start Date End Date Status aspirin enteric coated 81 MG TBEC Take 1 Tablet by mouth at bedtime. 0 02/28/2016 Active lisinopril (PRINIVIL) 2.5 MG TabletIndications:in am Take 1 Tablet by mouth in the morning. 0 Active oxybutynin XL (DITROPAN XL) 5 MG TB24 Take 1 Tablet by mouth at bedtime. 0 Active Gabapentin 600 MG Tablet Take 1 Tablet by mouth in the morning and 1 Tablet at noon and 1 Tablet before bedtime. 0 Active metoprolol succinate XL (TOPROL XL) 50 MG TB24 Take 1 Tablet by mouth in the morning. 0 12/18/2016 Active ONETOUCH ULTRA BLUE STRP CHECK BLOOD SUGAR TWICE DAILY 0 08/28/2017 Active glipiZIDE (GLUCOTROL) 5 MG Tablet Take 2 Tablets by mouth 2 times a day 30 minutes before morning and evening meals. 0 Active Cyanocobalamin (VITAMIN B-12) [address] 1 Tablet under the tongue in the morning. 0 Active pantoprazole (PROTONIX) 40 MG TBEC Take 1 Tablet by mouth in the morning. In the morning.. 4 12/08/2017 Active Cholecalciferol (VITAMIN D3) 1000 units CAPS Take by mouth at bedtime. 0 Active Isosorbide Dinitrate 30 MG TabletIndications:ext ended release Take 3 Tablets by mouth in the morning. 0 Active Jardiance 25 MG Oral Tablet Take 1 Tablet by mouth in the morning. 0 02/05/2020 Active glipiZIDE 10 MG Oral Tablet (GLUCOTROL) Take 1 Tablet by mouth 2 times a day 30 minutes before morning and evening meals. 0 01/30/2020 Active Ocuvite Adult 50+ Oral Capsule Take 1 Capsule by mouth at bedtime. 0 Active Atorvastatin Calcium 40 MG Oral Tablet (Lipitor)Indications: Dyslipidemia, goal LDL below 70 TAKE 1 TABLET BY MOUTH DAILY EVERY EVENING 30 Tab 5 12/08/2020 Active Ezetimibe 10 MG Oral Tablet (Zetia)Indications:Dy slipidemia, goal LDL below 70 TAKE 1 TABLET BY MOUTH DAILY 30 Tab 5 12/08/2020 Active Isosorbide Mononitrate ER 30 MG Oral Tablet Extended Release 24 Hour (Imdur) 0 08/18/2021 Active Nitroglycerin 0.4 MG Sublingual Tablet Sublingual (Nitrostat)Indication s:Coronary artery disease involving [place] coronary artery of [place] heart without angina pectoris PLACE 1 TABLET UNDER THE TONGUE EVERY 5 MINUTES NEEDED FOR CHEST PAIN 25 Tablet 5 09/12/2021 Active Venlafaxine HCl ER 225 MG Oral Tablet Extended Release 24 HourIndications:IN EVENING Take 1 Tablet by mouth in the morning. 30 Tablet 2 08/08/2022 Active Gabapentin 800 MG Oral Tablet (Neurontin) Take 1 Tablet by mouth in the morning and 1 Tablet at noon and 1 Tablet before bedtime. 0 Active documented as of this encounter (statuses as of 05/29/2023) Active Problems Problem Noted Date Diagnosed Date Depressive disorder 11/16/2021 Essential hypertension with goal blood pressure less than 130/80 12/25/2018 Dyslipidemia, goal LDL below 70 12/16/2018 History of tobacco use 12/16/2018 Coronary artery disease invo lving [place] coronary artery of [place] heart without angina pectoris 04/18/2018 S/P angioplasty with stent 04/18/2018 Chronic diarrhea 08/14/2016 HIV (human immunodeficiency virus infection) documented as of this encounter (statuses as of 05/29/2023) Social History Tobacco Use Types Packs/Day Years Used Date Smoking Tobacco: Former Cigarettes Q uit: 03/17/1995 Smokeless Tobacco: Former Hunger Vital Sign Answer Date Recorded Within the past 12 months, y ou worried that your food would run out before you got the money to buy more. Never true 02/29/20 23 Within the past 12 months, t he food you bought just didn't last and you didn't have money to get more. 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 He needs to be redirected when this happens. 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 Brooke Carty PA-C 02/14/2023 1:13 PM Let detailed v/m with [employer]'s message. * Telephone Encounter - Abida Tang OSA - 02/27/2023 4:06 PM EDT Beatriz from [facility] who is a case mgt called to try for a sooner appt with [facility] other than waiting till July. As pt has a change in mental status. No sooner slots available. Can you [id number] contact her at [phone] to discuss. documented in this encounter Plan of Treatment Upcoming Encounters Date Type Department Care Team (Late st Contact Info) Description 06/20/2023 12:40 PM EST Office Visit Infectious Disease [facility] [address] [place] [address] Gil Weston MD [address] [place] [address] 08/10/2023 2:00 PM EDT Office Visit Neurology [facility] [address] [place] [address] Brooke Carty PA-C [address] [place] [address] Scheduled Procedures Name Priority Associated Diagnoses Date/Ti me COLONOSCOPY FLEXIBLE PROXIMAL DIAGNOSTIC Recall History of colon polyps Health Maintenance Due Date Last Done Comments MENINGOCOCCAL (MENACTRA/MENVEO) (1 - Risk 2-dose series) 07/18/1957 COVID-19 Vaccine (#1) 1958 Depression Screening 1965 Albumin/Creatinine Ratio 07/18/1971 DTaP,Tdap,and Td Vaccines (1 - Tdap) 1972 Zoster Vaccines (1 of 2) 1972 Hepatitis B (1 of 3 - Risk 3-dose series) 2013 Pneumococcal Vaccine: 65+ Years (2 - PCV) 08/04/2014 08/04/2013 AAA Screening 2018 Influenza Vaccine (FLU shot) (#1) 2022 02/28/2016 GFR 03/14/2024 03/14/2023, 06/, 08/08/2022, Additional history exists COLONOSCOPY-EVERY 3 YRS AGES 18-100 09/22/2024 09/22/2021, 09/22/2021, 03/10/2020, Additional history exists COLONOSCOPY-ANNUAL AGES 18-100 Discontinued 09/22/2021, 09/22/2021, 03/10/2020, Additional history exists GARDASIL-HPV IMMUNIZATION SERIES Aged Out No longer eligible based on patient's age to complete this topic documented as of this encounter Medical Devices Implanted Type Area Pattern Shop Supervisor Device Identifier Shelf Expiration Date Model / Serial / Lot Sureclip 16mm 235cm - [id number] Implanted:Qty: 1 on 09/22/2021 by Thomas Boone MD at ENDOSCOPY [facility] Colon MICRO TECH ENDOSCOPY 09/02/2023 [id number] / / [id number] documented as of this encounter Additional Health Concerns Infection Onset Date Last Indicated Resolved Time Prion Rule-Out 04/24/2023 05/01/2023 documented as of this encounter Care Teams Medical Intern Relationship Specialty Start Date End Date Wendy Cui MD [address] [place] [address] PCP - General Internal Medicine 08/14/16 documented as of this encounter
--- OUTSIDE RECORDS SUMMARY | 2023-05-31 15:41 | External Medical Summary | Summary of Care ---
Author Name Unknown Organization [facility] Address [address] [place] [address] Phone [phone] Care Team Providers Care Electric Serviceman Name Role Phone Wendy Cui MD [facility] Care Provider Encounter Details Date Type Department Care Team (Late st Contact Info) Description 05/17/2023 Refill [facility] [place] [address] [place] [address] Martita Decker CRNP [address] [place] [address] Allergies Active Allergy Reactions Criticality Noted Date Comments Penicillins Rash 03/17/2016 documented as of this encounter (statuses as of 05/17/2023) Medications Medication Sig Dispensed Refills Start Date End Date Status aspirin enteric coated 81 MG TBEC Take 1 Tablet by mouth at bedtime. 0 02/28/2016 Active lisinopril (PRINIVIL) 2.5 MG TabletIndications: in am Take 1 Tablet by mouth in [...] bedtime. 0 Active Isosorbide Dinitrate 30 MG TabletIndications: extended release Take 3 Tablets by mouth in [...] Active Atorvastatin Calcium 40 MG Oral Tablet (Lipitor)Indicatio ns:Dyslipidemia, goal LDL below 70 TAKE 1 TABLET BY MOUTH DAILY EVERY EVENING 30 Tab 5 12/08/2020 Active Ezetimibe 10 MG Oral Tablet (Zetia)Indications :Dyslipidemia, goal LDL below 70 TAKE 1 TABLET BY MOUTH DAILY 30 Tab 5 12/08/2020 Active Isosorbide Mononitrate ER 30 MG Oral Tablet Extended Release 24 Hour (Imdur) 0 08/18/2021 Active Nitroglycerin 0.4 MG Sublingual Tablet Sublingual (Nitrostat)Indicat ions:Coronary artery disease involving [place] coronary artery of [place] heart without angina pectoris PLACE 1 TABLET [...] and 1 Tablet before bedtime. 0 Active buPROPion HCl ER (XL) 150 MG Oral Tablet Extended Release 24 Hour (Wellbutrin XL) Take 1 Tablet by mouth in the morning. 30 Tablet 2 04/07/2023 Active buPROPion HCl ER (XL) 300 MG Oral Tablet Extended Release 24 Hour (Wellbutrin XL) Take 1 Tablet by mouth in the morning. Take with 150 mg tab for a total 450 mg daily. 30 Tablet 2 05/17/2023 Active buPROPion HCl ER (XL) 300 MG Oral Tablet Extended Release 24 Hour (Wellbutrin XL) Take 1 Tablet by mouth in the morning. Take with 150 mg tab for a total 450 mg daily. 30 Tablet 2 08/08/2022 05/17/2023 Discontinued (Refill) documented as of this encounter (statuses as of 05/17/2023) Active Problems Problem Noted Date Diagnosed Date Depressive disorder 11/16/2021 Essential hypertension with goal blood pressure less than 130/80 12/25/2018 Dyslipidemia, goal LDL below 70 12/16/2018 History of tobacco use 12/16/2018 Coronary artery disease invo lving [place] coronary artery of [place] heart without angina pectoris 04/18/2018 S/P angioplasty with stent 04/18/2018 Chronic diarrhea 08/14/2016 HIV (human immunodeficiency virus infection) documented as of this encounter (statuses as of 05/17/2023) Social History Tobacco Use Types Packs/Day Years [...] encounter Miscellaneous Notes * Telephone Encounter - Geovanna Gross MD - 05/17/2023 3:09 PM ESTSigned Prescriptions: Disp Refills buPROPion HCl ER (XL) 300 MG Oral Tablet E*30 Tab*2 Sig: Take 1 Tablet by mouth in the morning. Take with 150 mg tab for a total 450 mg daily.Authorizing Provider: GEOVANNA GROSS * Telephone Encounter - Julieth Knox OSA - 05/17/2023 2:51 PM EST Patient calling for refill on Wellbutrin XL 300mg. Medication was last filled on 08/08/22 with 2 refills. Patient last seen on 11/06/22 with return appointment scheduled for NEEDS. Patient had 0 cancelled appointments and 2 NO SHOW appointments. * Telephone Encounter - Kathy Duran OSA - 05/17/2023 1:51 PM EST Patient Requesting Refill Prescribing Provider: Martita Decker Medication: Bupropion 300 and 150 wondering if this is discontinued or what's going on. Pharmacy: Coordinator Last Visit Date: 11/06/22 Future Visit Date: Has no future appt. Assuming this is why there are no refills. [phone] - Al [facility] documented in this encounter Plan of Treatment Upcoming Encounters Date Type Department Care Team (Late st Contact Info) Description 06/20/2023 12:40 PM EST Office Visit Infectious Disease [facility] [place] [address] [place] [address] [facility] [address] [facility] [address] 08/10/2023 2:00 PM EDT Office Visit Neurology [facility] [place] [address] [place] [address] Brooke Carty PA-C [address] [place] [address] Scheduled Procedures Name Priority Associated Diagnoses Date/Ti [...] shot) (#1) 2022 02/28/2016 GFR 03/14/2024 03/14/2023, 09/29, 08/08/2022, Additional history exists COLONOSCOPY-EVERY 3 YRS AGES 18-100 09/22/2024 09/22/2021, 09/22/2021, 03/10/2020, Additional history exists COLONOSCOPY-ANNUAL AGES 18-100 Discontinued 09/22/2021, 09/22/2021, 03/10/2020, Additional history exists GARDASIL-HPV IMMUNIZATION SERIES Aged Out No longer eligible based on patient's age to complete this topic documented as of this encounter Medical Devices Implanted Type Area Performance Test Consultant Device Identifier Shelf Expiration Date Model / Serial / Lot Sureclip 16mm 235cm - [id number] Implanted:Qty: 1 on 09/22/2021 by Thomas Boone MD at ENDOSCOPY [facility] Colon MICRO TECH ENDOSCOPY 09/02/2023 [id number] / / [id number] documented as of this encounter Additional Health Concerns Infection Onset Date Last Indicated Resolved Time Prion Rule-Out 04/24/2023 05/01/2023 documented as of this encounter Care Teams Electric Serviceman Relationship Specialty Start Date End Date Wendy Cui MD [address] [place] [address] PCP - General Internal Medicine 08/14/16 documented as of this encounter
--- OUTSIDE RECORDS SUMMARY | 2023-05-31 15:42 | External Medical Summary | Summary of Care ---
Author Name Unknown Organization [facility] Address [address] [place] [address] Phone [phone] Care Team Providers Care Distribution System Operator Name Role Phone Wendy Cui MD [facility] Care Provider Reason for Visit * Reason Onset Date Comments case management 05/04/2023 Cancel appt/reso urces Encounter Details Date Type Department Care Team (Latest Contact Info) Description 05/04/2023 Tubing Machine Operator Telephone Infectious Disease, [place] [address] [place] [address] Ro Jasmine, DEALER DEVELOPMENT MANAGER case management (Cancel appt/resources) Allergies Active Allergy Reactions Criticality Noted Date Comments Penicillins Rash 03/17/2016 documented as of this encounter (statuses as of 05/04/2023) Medications Medication Sig Dispensed Refills Start Date [...] Tablet Sublingual (Nitrostat)Indication s:Coronary artery disease involving [place] coronary artery of [place] heart without angina pectoris PLACE 1 TABLET UNDER THE TONGUE EVERY 5 MINUTES NEEDED FOR CHEST PAIN 25 Tablet 5 09/12/2021 Active Venlafaxine HCl ER 225 MG Oral Tablet Extended Release 24 HourIndications:IN EVENING Take 1 Tablet by mouth in the morning. 30 Tablet 2 08/08/2022 Active buPROPion HCl ER (XL) 300 MG Oral Tablet Extended Release 24 Hour (Wellbutrin XL) Take 1 Tablet by mouth in the morning. Take with 150 mg tab for a total 450 mg daily. 30 Tablet 2 08/08/2022 Active Gabapentin 800 MG Oral Tablet (Neurontin) Take 1 Tablet by mouth in the morning and 1 Tablet at noon and 1 Tablet before bedtime. 0 Active buPROPion HCl ER (XL) 150 MG Oral Tablet Extended Release 24 Hour (Wellbutrin XL) Take 1 Tablet by mouth in the morning. 30 Tablet 2 04/07/2023 Active documented as of this encounter (statuses as of 05/04/2023) Active Problems Problem Noted Date Diagnosed Date Depressive disorder 11/16/2021 Essential hypertension with goal blood pressure less than 130/80 12/25/2018 Dyslipidemia, goal LDL below 70 12/16/2018 History of tobacco use 12/16/2018 Coronary artery disease invo lving [place] coronary artery of [place] heart without angina pectoris 04/18/2018 S/P angioplasty with stent 04/18/2018 Chronic diarrhea 08/14/2016 HIV (human immunodeficiency virus infection) documented as of this encounter (statuses as of 05/04/2023) Social History Tobacco Use Types Packs/Day Years [...] encounter Miscellaneous Notes * Telephone Encounter - Ro Jasmine, BARNEY - 05/04/2023 1:52 PM EST SANTA received call from Salas buchanan who is cancelling his therapy appt on 05/08 with Jerald Bui. He indicated he is not interested in coming out so far, Covid concerns, and weather. SANTA offered the option ofa video appt, however, he declined. SANTA sent message to Amy Monteiro, Remote Medical Coder to please cancel. CM discussed possibly looking into options for therapy near his home. Salas is in agreement. SANTA completed search for Behavioral Health providers via [place] [facility] website. CM contacted [facility], to inquire about insurance coverage; they do not accept [facility] [employer] [facility]. Kira Fowler, SOLAR ENERGY ENGINEER: website indicated she is currently on waitlist [facility]: S[place] LIN[place] (PH: [phone]) for agency to return call to review insurance and if they are accepting new patients. CM awaiting return call. CM spoke with [facility]. She indicated they do have some providers that accept [facility] [employer] Medicare, but there is currently a waitlist. Per [facility], [facility] is accepted there. The contact information is [phone] (Billing did not answer, info provided on website), CM will provide contact information to ptSalas Mckee. SANTA called [facility], PH: [phone]), however, there was no answer. Website indicated that[facility]" is accepted. SANTA spoke with Salas buchanan (PH: [phone]) to provide information above and to also provide contactnumber for his insurance to check on options. Time spent: 30 minutes documented in this encounter Plan of Treatment Upcoming Encounters Date Type Department Care Team (Late st Contact Info) Description 06/20/2023 12:40 PM EST Office Visit Infectious Disease [employer] [address] [facility] [place] [address] Gil Weston MD [address] [place] [address] 08/10/2023 2:00 PM EDT Office Visit Neurology [employer] [address] [facility] [place] [address] Brooke Carty PA-C [address] [facility] [place] [address] Scheduled Procedures Name Priority Associated Diagnoses Date/Ti [...] this encounter Medical Devices Implanted Type Area Archeology Professor Device Identifier Shelf Expiration Date Model / Serial / Lot Sureclip 16mm 235cm - [id number] Implanted:Qty: 1 on 09/22/2021 by Thomas Boone MD at ENDOSCOPY [facility] Colon MICRO TECH ENDOSCOPY 09/02/2023 [id number] / / [id number] documented as of this encounter Additional Health Concerns Infection Onset Date Last Indicated Resolved Time Prion Rule-Out 04/24/2023 05/01/2023 documented as of this encounter Care Teams Distribution System Operator Relationship Specialty Start Date End Date Wendy Cui MD [address], [place] [address] PCP - General Internal Medicine 08/14/16 documented as of this encounter
--- OUTSIDE RECORDS SUMMARY | 2023-05-31 15:42 | External Medical Summary | Summary of Care ---
Author Name Unknown Organization [facility] Address [address] [place] [address] Phone [phone] Care Team Providers Care Center Manager Name Role Phone Wendy Cui MD [facility] Care Provider Reason for Visit * Reason Onset Date Comments case management 04/24/2023 Therapy Appointment 04/24/2023 Encounter Details Date Type Department Care Team (Late st Contact Info) Description 04/24/2023 Telephone Infectious Disease, [place] [address] [place] [address] Angela Lopez BS case management (Therapy); Appointment Allergies Active Allergy Reactions Criticality Noted Date Comments Penicillins Rash 03/17/2016 documented as of this encounter (statuses as of 04/26/2023) Medications Medication Sig Dispensed Refills Start Date [...] mouth in the morning. 0 12/18/2016 Active [employer]UCH ULTRA BLUE STRP CHECK BLOOD SUGAR TWICE [...] Tablet Sublingual (Nitrostat)Indication s:Coronary artery disease involving [place] coronary artery of [place] heart without angina pectoris PLACE 1 TABLET [...] as of this encounter (statuses as of 04/26/2023) Active Problems Problem Noted Date Diagnosed Date Depressive disorder 11/16/2021 Essential hypertension with goal blood pressure less than 130/80 12/25/2018 Dyslipidemia, goal LDL below 70 12/16/2018 History of tobacco use 12/16/2018 Coronary artery disease invo lving [place] coronary artery of [place] heart without angina pectoris 04/18/2018 S/P angioplasty with stent 04/18/2018 Chronic diarrhea 08/14/2016 HIV (human immunodeficiency virus infection) documented as of this encounter (statuses as of 04/26/2023) Social History Tobacco Use Types Packs/Day Years [...] encounter Miscellaneous Notes * Telephone Encounter - Ignacia Monteiro OSA - 04/26/2023 12:14 PM EST Called and spoke with pt and made appt with Felipe Bui for edward. * Telephone Encounter - Cathie Solorzano OSA - 04/24/2023 10:59 AM EST Called and left message for patient to call back. To schedule with Felipe Bui * Telephone Encounter - Angela Lopez BS - 04/24/2023 10:[address] Mccullough, patient was not contacted about therapy referral. Dr. Mccullough made aware to place referral as HIV Therapy Referral. Routing to ID Admins to reach out to patient to schedule an appointment with Felipe for therapy. Time Spent: 15 minutes documented in this encounter Plan of Treatment Upcoming Encounters Date Type Department Care Team (Late st Contact Info) Description 05/08/2023 12:30 PM EST Therapy Infectious Disease, [place] [address] [place] [address] Zbigniew Bui, [facility] [address] [place], [place] [id number] 06/20/2023 12:40 PM EST Office Visit Infectious Disease [facility] [address] [facility] [place] [address] Gil Weston MD [address] [place] [address] 08/10/2023 2:00 PM EDT Office Visit Neurology [facility] [address] [facility] [place] [address] Brooke Carty PA-C [address] [facility] [place] [address] Scheduled Procedures Name Priority Associated Diagnoses Date/Ti [...] shot) (#1) 2022 02/28/2016 GFR 03/14/2024 03/14/2023, /, 08/08/2022, Additional history exists COLONOSCOPY-EVERY 3 YRS AGES 18-100 09/22/2024 09/22/2021, 09/22/2021, 03/10/2020, Additional history exists COLONOSCOPY-ANNUAL AGES 18-100 Discontinued 09/22/2021, 09/22/2021, 03/10/2020, Additional history exists GARDASIL-HPV IMMUNIZATION SERIES Aged Out No longer eligible based on patient's age to complete this topic documented as of this encounter Medical Devices Implanted Type Area Deputy Register Of Deeds Device Identifier Shelf Expiration Date Model / Serial / Lot Sureclip 16mm 235cm - [id number] Implanted:Qty: 1 on 09/22/2021 by Thomas Boone MD at ENDOSCOPY [facility] Colon MICRO TECH ENDOSCOPY 09/02/2023 [id number] / / [id number] documented as of this encounter Care Teams Center Manager Relationship Specialty Start Date End Date Wendy Cui MD [address], [place] [address] PCP - General Internal Medicine 08/14/16 documented as of this encounter
--- OUTSIDE RECORDS SUMMARY | 2023-05-31 15:42 | External Medical Summary | Summary of Care ---
Author Name Unknown Organization [facility] Address [address] [place] [address] Phone [phone] Care Team Providers Care Senior Drafter Name Role Phone Wendy Cui MD [facility] Care Provider Reason for Visit * Reason Onset Date Comments case management 05/04/2023 Fax Request Encounter Details Date Type Department Care Team (Late st Contact Info) Description 05/04/2023 Telephone Infectious Disease, [place] [address] [place], [place] [phone] Angela Lopez BS case management (Fax Request) Allergies Active Allergy Reactions Criticality Noted Date [...] mouth in the morning. 0 12/18/2016 Active TYSON SecurityTOUCH ULTRA BLUE STRP CHECK BLOOD SUGAR TWICE [...] Tablet Sublingual (Nitrostat)Indication s:Coronary artery disease involving [place] coronary artery of [place] heart without angina pectoris PLACE 1 TABLET [...] use 12/16/2018 Coronary artery disease invo lving [place] coronary artery of [place] heart without angina pectoris 04/18/2018 S/P angioplasty [...] encounter Miscellaneous Notes * Telephone Encounter - Angela Lopez BS - 05/04/2023 12:18 PM EST Received request from Ruthann monique [place] for pt's most recent HIV labs and visit summary. Pt has release of information scanned in chart for [facility]. Faxed most recent labs and visit summary as requested. Time spent: 15 minutes documented in this encounter Plan of Treatment Upcoming Encounters Date Type Department Care Team (Late st Contact Info) Description 05/08/2023 12:30 PM EST Therapy Infectious Disease, [place] [address] [place] [address] Zbigniew Bui, [facility] [address] [place], [place] [id number] 06/20/2023 12:40 PM EST Office Visit Infectious Disease [facility] [address] [address] Gil Weston MD [address] [place] [address] 08/10/2023 2:00 PM EDT Office Visit Neurology [place] [address] [address] Brooke Carty PA-C [address] [address] Scheduled Procedures Name Priority Associated Diagnoses Date/Ti [...] this encounter Medical Devices Implanted Type Area Instructor Bridge Device Identifier Shelf Expiration Date Model / Serial / Lot Sureclip 16mm 235cm - [id number] Implanted:Qty: 1 on 09/22/2021 by Thomas Boone MD at ENDOSCOPY [facility] Colon MICRO TECH ENDOSCOPY 09/02/2023 [id number] / / [id number] documented as of this encounter Additional Health Concerns Infection Onset Date Last Indicated Resolved Time Prion Rule-Out 04/24/2023 05/01/2023 documented as of this encounter Care Teams Senior Drafter Relationship Specialty Start Date End Date Wendy Cui MD [address] [place] [address] PCP - General Internal Medicine 08/14/16 documented as of this encounter
--- OUTSIDE RECORDS SUMMARY | 2023-05-31 15:42 | External Medical Summary | Summary of Care ---
Author Name Unknown Organization [facility] Address [address] [place] [address] Phone [phone] Care Team Providers Care Editing Intern Name Role Phone Wendy Cui MD [facility] Care Provider Reason for Referral * Ancillary Services (Within 10 days (routine)) - Authorized Specialty Diagnoses / Procedures Referred By Contact Referred To Contact Interventional Radiology / Radiology Diagnoses Balance disorder Gisell Mccullough DO [address] [place] [address] Referral ID Status Reason Start Date Expiration Date Visits Requested Visits Authorized [id number] Authorized Ancillary Services Required 3 [phone] Question Answer Referral Priority Within 10 days (routine) Where should this appointment be scheduled? ising Where Will The Procedure Be Performed? [facility] Comments Please enter the reason for consult: LP Are outside images available?: No Encounter Details Date Type Department Care Team (Late st Contact Info) Description 04/24/2023 Telephone Infectious Disease [address] [address] Gisell Mccullough DO [address] [place], [place] [phone] Allergies Active Allergy Reactions Criticality Noted Date Comments Penicillins Rash 03/17/2016 documented as of this encounter (statuses as of 05/01/2023) Medications Medication Sig Dispensed Refills Start Date [...] mouth in the morning. 0 12/18/2016 Active Lyxia STRP CHECK BLOOD SUGAR TWICE DAILY 0 [...] Tablet Sublingual (Nitrostat)Indication s:Coronary artery disease involving [place] coronary artery of [place] heart without angina pectoris PLACE 1 TABLET [...] as of this encounter (statuses as of 05/01/2023) Active Problems Problem Noted Date Diagnosed Date Depressive disorder 11/16/2021 Essential hypertension with goal blood pressure less than 130/80 12/25/2018 Dyslipidemia, goal LDL below 70 12/16/2018 History of tobacco use 12/16/2018 Coronary artery disease invo lving [place] coronary artery of [place] heart without angina pectoris 04/18/2018 S/P angioplasty with stent 04/18/2018 Chronic diarrhea 08/14/2016 HIV (human immunodeficiency virus infection) documented as of this encounter (statuses as of 05/01/2023) Social History Tobacco Use Types Packs/Day Years [...] as of this encounter Miscellaneous Notes * Addendum Note - Gisell Mccullough DO - 04/24/2023 1:22 PM ESTAddended by: GISELL MCCULLOUGH on: 04/24/2023 01:22 PM Modules accepted: Orders * Telephone Encounter - Gisell Mccullough DO - 04/24/2023 10:01 AM EST BRIEF OUTPATIENT UPDATE NOTE BACKGROUND INFORMATION Patient diagnosed in 1989. Was on Genvoya when he established with [facility] in 01/2020. Transitioned to Biktarvy in 04/2021. INTERVAL HISTORY / PATIENT'S CURRENT STATUS Patient's HIV is well controlled (ND and CD4 >600) noted to be ?confused and having falls. MRI brain was unremarkable. The utility of an LP was discussed with the patient. The benefit of the LP isto find other causes for his symptoms. We discussed, in layperson's terms, the risks including but not limited to headache. The patient expressed understanding. He will consider an LP. RECOMMENDATIONS LP ordered CC: Neurology & ID NN Gisell Mccullough DO Infectious Diseases documented in this encounter Plan of Treatment Upcoming Encounters Date Type Department Care Team (Late st Contact Info) Description 05/08/2023 12:30 PM EST Therapy Infectious Disease, [place] [address] [place] [address] Zbigniew Bui, [employer] [address] [place] [address] 06/20/2023 12:40 PM EST Office Visit Infectious Disease [facility] [address] [facility] [address] [address] Gil Weston MD [address] [place] [address] 08/10/2023 2:00 PM EDT Office Visit Neurology [facility] [place] [address] [facility] [place] [address] Brooke Carty PA-C [address] [facility] [place] [address] Scheduled Orders Name Type Priority Associated Diagnoses Orde r Schedule SPINAL FLUID TAP,DIAGNOSTIC Procedures Routine Balance disorder Ordered: 04/24/2023 CRYPTOCOCCAL ANTIGEN, CSF Lab Routine Balance disorder Expected: 04/25/2023 (Approximate), Expires: 04/24/2024 CELL COUNT WITH DIFFERENTIAL, CSF Lab Routine Balance disorder Expected: 04/25/2023 (Approximate), Expires: 04/24/2024 CYTOLOGY Pathology Routine Balance disorder Expected: 04/25/2023 (Approximate), Expires: 05/25/2024 ENCEPHALITIS ANTIBODY PANEL (CSF) Lab Routine Balance disorder Expected: 04/25/2023 (Approximate), Expires: 04/24/2024 EXTRA CSF Lab Routine Expected: 04/25/2023 (Approximate), Expires: 04/24/2024 GLUCOSE, CSF Lab Routine Balance disorder Expected: 04/25/2023 (Approximate), Expires: 04/24/2024 WU POLYOMA VIRUS DNA, QUANTITATIVE REAL-TIME PCR, CSF Lab Routine Balance disorder Expected: 04/25/2023 (Approximate), Expires: 04/24/2024 PROTEIN, CSF Lab Routine Balance disorder Expected: 04/25/2023 (Approximate), Expires: 04/24/2024 VDRL, CSF Lab Routine Balance disorder Expected: 04/25/2023 (Approximate), Expires: 04/24/2024 14-3-3 PROTEIN, CSF (PRION DISEASE) Lab Routine Balance disorder Expected: 04/25/2023 (Approximate), Expires: 04/24/2024 CULTURE, CSF, AEROBIC Lab Routine Balance disorder Expected: 04/25/2023 (Approximate), Expires: 04/24/2024 MENINGITIS ENCEPHALITIS (ME) PATHOGEN PANEL, CSF (PCR AND CULTURE) Lab Routine Balance disorder Expected: 04/25/2023 (Approximate), Expires: 04/24/2024 CULTURE,FUNGUS,NON-GILBERT M Lab Routine Balance disorder Expected: 04/25/2023 (Approximate), Expires: 04/24/2024 CULTURE, AFB Lab Routine Balance disorder Expected: 04/25/2023 (Approximate), Expires: 04/24/2024 FLUORO GUIDE LUMBAR PUNCTURE Medical Imaging Routine Balance disorder Ordered: 04/24/2023 Scheduled Procedures Name Priority Associated Diagnoses Date/Ti me COLONOSCOPY FLEXIBLE PROXIMAL DIAGNOSTIC Recall History of colon polyps Scheduled Referrals Name Type Priority Associated Diagnoses Order Schedule INTERVENTIONAL RADIOLOGY REFERRAL OP Referral Within 10 days (routine) Balance disorder Ordered: 04/24/2023 Health Maintenance Due Date Last Done Comments [...] this encounter Medical Devices Implanted Type Area Tub Mender Device Identifier Shelf Expiration Date Model / Serial / Lot Sureclip 16mm 235cm - [id number] Implanted:Qty: 1 on 09/22/2021 by Thomas Boone MD at ENDOSCOPY [facility] Colon MICRO TECH ENDOSCOPY 09/02/2023 [id number] / / [id number] documented as of this encounter Visit Diagnoses Diagnosis Balance disorder- Primary Other symptoms involving nervous and musculoskeletal systems documented in this encounter Care Teams Editing Intern Relationship Specialty Start Date End Date Wendy Cui MD [address] [place] [address] PCP - General Internal Medicine 08/14/16 documented as of this encounter
--- OUTSIDE RECORDS SUMMARY | 2023-05-31 15:42 | External Medical Summary | Summary of Care ---
Author Name Unknown Organization [facility] Address [address] [place] [address] Phone [phone] Care Team Providers Care Training And Development Project Leader Name Role Phone Wendy Cui MD [facility] Care Provider Reason for Referral * Ancillary Services (Within 10 days (routine)) - Authorized Specialty Diagnoses / Procedures Referred By Contact Referred To Contact Interventional Radiology / Radiology Diagnoses Balance disorder Gisell Mccullough DO [address] [place] [address] Referral ID Status Reason Start Date Expiration Date Visits Requested Visits Authorized [id number] Authorized Ancillary Services Required 3 [phone] Question Answer Referral Priority Within 10 days (routine) Where should this appointment be scheduled? ising Where Will The Procedure Be Performed? [facility] Comments Please enter the reason for consult: LP Are outside images available?: No Encounter Details Date Type Department Care Team (Late st Contact Info) Description 04/24/2023 Telephone Infectious Disease [address] [address] Gisell Mccullough DO [address] [place], [place] [phone] Allergies Active Allergy Reactions Criticality Noted Date Comments Penicillins Rash 03/17/2016 documented as of this encounter (statuses as of 04/24/2023) Medications Medication Sig Dispensed Refills Start Date [...] mouth in the morning. 0 12/18/2016 Active BridgeXs STRP CHECK BLOOD SUGAR TWICE DAILY 0 [...] Tablet Sublingual (Nitrostat)Indication s:Coronary artery disease involving [place] coronary artery of [place] heart without angina pectoris PLACE 1 TABLET [...] as of this encounter (statuses as of 04/24/2023) Active Problems Problem Noted Date Diagnosed Date Depressive disorder 11/16/2021 Essential hypertension with goal blood pressure less than 130/80 12/25/2018 Dyslipidemia, goal LDL below 70 12/16/2018 History of tobacco use 12/16/2018 Coronary artery disease invo lving [place] coronary artery of [place] heart without angina pectoris 04/18/2018 S/P angioplasty with stent 04/18/2018 Chronic diarrhea 08/14/2016 HIV (human immunodeficiency virus infection) documented as of this encounter (statuses as of 04/24/2023) Social History Tobacco Use Types Packs/Day Years [...] Was on Genvoya when he established with [facility] in 01/2020. Transitioned to Biktarvy in 04/2021. [...] 12:40 PM EST Office Visit Infectious Disease [address] [place] [address] Gil Weston MD [address] [place] [address] 08/10/2023 2:00 PM EDT Office Visit Neurology [facility] [address] [facility] [place] [address] Brooke Carty PA-C [address] [facility] [place] [address] Scheduled Orders Name Type Priority Associated Diagnoses [...] this encounter Medical Devices Implanted Type Area Instruction Dean Device Identifier Shelf Expiration Date Model / Serial / Lot Sureclip 16mm 235cm - [id number] Implanted:Qty: 1 on 09/22/2021 by Thomas Boone MD at ENDOSCOPY [facility] Colon MICRO TECH ENDOSCOPY 09/02/2023 [id number] / / [id number] documented as of this encounter Visit Diagnoses Diagnosis Balance disorder- Primary Other symptoms involving nervous and musculoskeletal systems documented in this encounter Care Teams Training And Development Project Leader Relationship Specialty Start Date End Date Wendy Cui MD [address], [place] [address] PCP - General Internal Medicine 08/14/16 documented as of this encounter
--- OUTSIDE RECORDS SUMMARY | 2023-05-31 15:42 | External Medical Summary | Summary of Care ---
Author Name Unknown Organization [facility] Address [address] [place] [address] Phone [phone] Care Team Providers Care Press Clipper Name Role Phone Wendy Cui MD [facility] Care Provider Encounter Details Date Type Department Care Team (Late st Contact Info) Description 05/10/2023 Population Health External Data Unspecified Department Allergies Active Allergy Reactions Criticality Noted Date Comments Penicillins Rash 03/17/2016 documented as of this encounter (statuses as of 05/14/2023) Medications Medication Sig Dispensed Refills Start Date [...] Tablet Sublingual (Nitrostat)Indication s:Coronary artery disease involving [place] coronary artery of [place] heart without angina pectoris PLACE 1 TABLET [...] as of this encounter (statuses as of 05/14/2023) Active Problems Problem Noted Date Diagnosed Date Depressive disorder 11/16/2021 Essential hypertension with goal blood pressure less than 130/80 12/25/2018 Dyslipidemia, goal LDL below 70 12/16/2018 History of tobacco use 12/16/2018 Coronary artery disease invo lving [place] coronary artery of [place] heart without angina pectoris 04/18/2018 S/P angioplasty with stent 04/18/2018 Chronic diarrhea 08/14/2016 HIV (human immunodeficiency virus infection) documented as of this encounter (statuses as of 05/14/2023) Social History Tobacco Use Types Packs/Day Years [...] on file documented as of this encounter Plan of Treatment Upcoming Encounters Date Type Department Care Team (Late st Contact Info) Description 06/20/2023 12:40 PM EST Office Visit Infectious Disease [facility] [place] [address] [place] [address] Gil Weston MD [address] [place] [facility] [address] 08/10/2023 2:00 PM EDT Office Visit Neurology Letty Estrada [place] [address] [place] [address] Brooke Carty PA-C [address] [place] [address] Scheduled Procedures Name Priority Associated Diagnoses Date/Ti [...] this encounter Medical Devices Implanted Type Area Oracle Soa Consultant Device Identifier Shelf Expiration Date Model / Serial / Lot Sureclip 16mm 235cm - [id number] Implanted:Qty: 1 on 09/22/2021 by Thomas Boone MD at ENDOSCOPY [facility] Colon MICRO TECH ENDOSCOPY 09/02/2023 [id number] / / [id number] documented as of this encounter Additional Health Concerns Infection Onset Date Last Indicated Resolved Time Prion Rule-Out 04/24/2023 05/01/2023 documented as of this encounter Care Teams Press Clipper Relationship Specialty Start Date End Date Wendy Cui MD [address], [place] [address] PCP - General Internal Medicine 08/14/16 documented as of this encounter
--- OUTSIDE RECORDS SUMMARY | 2023-05-31 15:42 | External Medical Summary | Summary of Care ---
Author Name Unknown Organization [facility] Address [address] [place] [address] Phone [phone] Care Team Providers Care Black Leather Buffer Name Role Phone Wendy Cui MD [facility] Care Provider Encounter Details Date Type Department Care Team (Late st Contact Info) Description 05/17/2023 Population Health External Data Unspecified Department Allergies [...] Tablet Sublingual (Nitrostat)Indication s:Coronary artery disease involving [place] coronary artery of [place] heart without angina pectoris PLACE 1 TABLET [...] use 12/16/2018 Coronary artery disease invo lving [place] coronary artery of [place] heart without angina pectoris 04/18/2018 S/P angioplasty [...] EST Office Visit Infectious Disease Letty Estrada [place] [address] [place] [address] Gil Weston MD [address] [place] [facility] [place] [address] 08/10/2023 2:00 PM EDT Office Visit Neurology Letty Estrada [place] [address] [address] Brooke Carty PA-C [address] [place] [address] Scheduled Procedures Name Priority Associated Diagnoses Date/Ti [...] this encounter Medical Devices Implanted Type Area City Comptroller Device Identifier Shelf Expiration Date Model / Serial / Lot Sureclip 16mm 235cm - [id number] Implanted:Qty: 1 on 09/22/2021 by Thomas Boone MD at ENDOSCOPY [facility] Colon MICRO TECH ENDOSCOPY 09/02/2023 [id number] / / [id number] documented as of this encounter Additional Health Concerns Infection Onset Date Last Indicated Resolved Time Prion Rule-Out 04/24/2023 05/01/2023 documented as of this encounter Care Teams Black Leather Buffer Relationship Specialty Start Date End Date Wendy Cui MD [address], [place] [address] PCP - General Internal Medicine 08/14/16 documented as of this encounter
--- OUTSIDE RECORDS SUMMARY | 2023-05-31 15:42 | External Medical Summary | Summary of Care ---
Author Name Unknown Organization [facility] Address [address] [place] [address] Phone [phone] Care Team Providers Care Elastic Tape Inserter Name Role Phone Wendy Cui MD [facility] Care Provider Reason for Visit * Reason Onset Date Comments case management 05/04/2023 Cancel appt/reso urces Encounter Details Date Type Department Care Team (Latest Contact Info) Description 05/04/2023 Education Rep Telephone Infectious Disease, [place] [address] [place] [address] Ro Jasmine, FEDERAL APPELLATE CLERK case management (Cancel appt/resources) Allergies Active Allergy Reactions Criticality Noted Date Comments Penicillins Rash 03/17/2016 documented as of this encounter (statuses as of 05/08/2023) Medications Medication Sig Dispensed Refills Start Date [...] Tablet Sublingual (Nitrostat)Indication s:Coronary artery disease involving [place] coronary artery of [place] heart without angina pectoris PLACE 1 TABLET [...] as of this encounter (statuses as of 05/08/2023) Active Problems Problem Noted Date Diagnosed Date Depressive disorder 11/16/2021 Essential hypertension with goal blood pressure less than 130/80 12/25/2018 Dyslipidemia, goal LDL below 70 12/16/2018 History of tobacco use 12/16/2018 Coronary artery disease invo lving [place] coronary artery of [place] heart without angina pectoris 04/18/2018 S/P angioplasty with stent 04/18/2018 Chronic diarrhea 08/14/2016 HIV (human immunodeficiency virus infection) documented as of this encounter (statuses as of 05/08/2023) Social History Tobacco Use Types Packs/Day Years [...] Notes * Telephone Encounter - Ro Jasmine, FEDERAL APPELLATE CLERK - 05/04/2023 1:52 PM EST SANTA received call from Salas buchanan who is cancelling his therapy appt on 05/08 with Jerald Bui. He indicated he is not interested in coming out so far, Covid concerns, and weather. SANTA offered the option ofa video appt, however, he declined. SANTA sent message to Amy Monteiro, Metal Temperer to please cancel. CM discussed possibly looking into options for therapy near his home. Salas is in agreement. SANTA completed search for Behavioral Health providers via [employer] website. CM contacted [facility], to inquire about insurance coverage; they do not accept [facility] [employer] [facility]. Kira Fowler, ARMATURE BANDER: website indicated she is currently on waitlist [facility]: SANTA LINO (PH: [phone]) for agency to return call to review insurance and if they are accepting new patients. CM awaiting return call. CM spoke with Melissa [facility]. She indicated they do have some providers that accept [facility] [employer] Medicare, but there is currently a waitlist. Per [facility], [facility] is accepted there. The contact information is [phone] (Billing did not answer, info provided on website), CM will provide contact information to ptSalas Mckee. SANTA called [facility], PH: [phone]), however, there was no answer. Website indicated that[facility]" is accepted. SANTA spoke with Salas buchanan (PH: [phone]) to provide information above and to also provide contactnumber for his insurance to check on options. Time spent: 30 minutes documented in this encounter Plan of Treatment Upcoming Encounters Date Type Department Care Team (Late st Contact Info) Description 06/20/2023 12:40 PM EST Office Visit Infectious Disease [employer] [address] [facility] [place] [address] Gil Weston MD [address] [place] [address] 08/10/2023 2:00 PM EDT Office Visit Neurology [facility] [employer] [address] [facility] [place] [address] Brooke Carty PA-C [address] [facility] [place] [address] Scheduled Procedures Name Priority Associated Diagnoses Date/Ti [...] this encounter Medical Devices Implanted Type Area Security Attendant Device Identifier Shelf Expiration Date Model / Serial / Lot Sureclip 16mm 235cm - [id number] Implanted:Qty: 1 on 09/22/2021 by Thomas Boone MD at ENDOSCOPY [facility] Colon MICRO TECH ENDOSCOPY 09/02/2023 [id number] / / [id number] documented as of this encounter Additional Health Concerns Infection Onset Date Last Indicated Resolved Time Prion Rule-Out 04/24/2023 05/01/2023 documented as of this encounter Care Teams Elastic Tape Inserter Relationship Specialty Start Date End Date Wendy Cui MD [address], [place] [address] PCP - General Internal Medicine 08/14/16 documented as of this encounter
--- OUTSIDE RECORDS SUMMARY | 2023-05-31 15:43 | External Medical Summary | Summary of Care ---
Author Name Unknown Organization [facility] Address [address] [place] [address] Phone [phone] Care Team Providers Care Painter Shipyard Name Role Phone Wendy Cui MD [facility] Care Provider Reason for Visit * Reason Onset Date Comments Confusion 04/19/2023 Encounter Details Date Type Department Care Team (Late st Contact Info) Description 04/19/2023 Telephone Infectious Disease, [place] [address] [place], [place] [phone] José Mccullough, [address] [place] [address] Confusion Allergies Active Allergy Reactions Criticality Noted Date [...] Tablet Sublingual (Nitrostat)Indication s:Coronary artery disease involving [place] coronary artery of [place] heart without angina pectoris PLACE 1 TABLET [...] use 12/16/2018 Coronary artery disease invo lving [place] coronary artery of [place] heart without angina pectoris 04/18/2018 S/P angioplasty [...] encounter Miscellaneous Notes * Telephone Encounter - Hansa Johnston OSA - 04/20/2023 3:11 PM EST Pt returning Dr Mccullough's phone call - please call pt Thank-you! Hansa * Telephone Encounter - José Mccullough DO - 04/19/2023 5:43 PM EST BRIEF TELEPHONE NOTE 04/19/2023 @ 5:43 PM Called the pt to discuss LP. There was no answer. Message was left. José Mccullough DO Infectious Diseases documented in this encounter Plan of Treatment Upcoming Encounters Date Type Department Care Team (Late st Contact Info) Description 06/20/2023 12:40 PM EST Office Visit Infectious Disease [facility] [address] [place] [address] Gil Weston MD [address] [place] [address] 08/10/2023 2:00 PM EDT Office Visit Neurology [facility] [address] [place] [address] Brooke Carty PA-C [address] [facility] [place] [address] Scheduled Procedures Name Priority Associated Diagnoses Date/Ti [...] this encounter Medical Devices Implanted Type Area Circular Ripsaw Operator Device Identifier Shelf Expiration Date Model / Serial / Lot Sureclip 16mm 235cm - [id number] Implanted:Qty: 1 on 09/22/2021 by Thomas Boone MD at ENDOSCOPY [facility] Colon MICRO TECH ENDOSCOPY 09/02/2023 [id number] / / [id number] documented as of this encounter Care Teams Painter Shipyard Relationship Specialty Start Date End Date Wendy Cui MD [address] [address] PCP - General Internal Medicine 08/14/16 documented as of this encounter
--- OUTSIDE RECORDS SUMMARY | 2023-05-31 15:43 | External Medical Summary | Summary of Care ---
Author Name Unknown Organization [facility] Address [address] [place] [address] Phone [phone] Care Team Providers Care Local Government Legislator Name Role Phone Wendy Cui MD [facility] Care Provider Reason for Visit * Reason Onset Date Comments Medication Refill 04/06/2023 Encounter Details Date Type Department Care Team (Late st Contact Info) Description 04/06/2023 Refill Psychiatry, [place] [address] [place] [address] Martita Iniguez CRNP [address] [place] [address] Allergies Active Allergy Reactions Criticality Noted Date Comments Penicillins Rash 03/17/2016 documented as of this encounter (statuses as of 04/07/2023) Medications Medication Sig Dispensed Refills Start Date [...] Tablet Sublingual (Nitrostat)Indicat ions:Coronary artery disease involving [place] coronary artery of [place] heart without angina pectoris PLACE 1 TABLET [...] 2 04/07/2023 Active buPROPion HCl ER (XL) 150 MG Oral Tablet Extended Release 24 Hour (Wellbutrin XL) Take 1 Tablet by mouth in the morning. 30 Tablet 2 08/08/2022 04/06/2023 Discontinued (Refill) documented as of this encounter (statuses as of 04/07/2023) Active Problems Problem Noted Date Diagnosed Date Depressive disorder 11/16/2021 Essential hypertension with goal blood pressure less than 130/80 12/25/2018 Dyslipidemia, goal LDL below 70 12/16/2018 History of tobacco use 12/16/2018 Coronary artery disease invo lving [place] coronary artery of [place] heart without angina pectoris 04/18/2018 S/P angioplasty with stent 04/18/2018 Chronic diarrhea 08/14/2016 HIV (human immunodeficiency virus infection) documented as of this encounter (statuses as of 04/07/2023) Social History Tobacco Use Types Packs/Day Years [...] encounter Miscellaneous Notes * Telephone Encounter - Martita Iniguez CRNP - 04/07/2023 12:25 AM ESTSigned Prescriptions: Disp Refills buPROPion HCl ER (XL) 150 MG Oral Tablet E*30 Tab*2 Sig: Take 1 Tablet by mouth in the morning. Authorizing Provider: MARTITA INIGUEZ * Telephone Encounter - Julieth Knox OSA - 04/06/2023 2:51 PM EST Pharmacy requesting refill on Wellbutrin XL 150mg. Medication was last filled on 08/08/22 with 2 refills. Patient last seen on 11/06/22 with return appointment scheduled for NEEDS. Patient had 0 cancelled appointments and 2 NO SHOW appointments. documented in this encounter Plan of Treatment Upcoming Encounters Date Type Department Care Team (Late st Contact Info) Description 04/12/2023 1:30 PM EST Office Visit Cardiology, [facility] [address] [place] [address] Sami Beauchamp, [address] [place] [address] 06/20/2023 12:40 PM EST Office Visit Infectious Disease [facility] [address] [place] [address] Gil Weston MD [address] [place] [address] 08/10/2023 2:00 PM EDT Office Visit Neurology [facility] [address] [place] [address] Brooke Carty PA-C [address] [facility] [place] [address] Scheduled Procedures Name Priority Associated Diagnoses Date/Ti [...] this encounter Medical Devices Implanted Type Area Plant Reliability Engineer Device Identifier Shelf Expiration Date Model / Serial / Lot Sureclip 16mm 235cm - [id number] Implanted:Qty: 1 on 09/22/2021 by Thomas Boone MD at ENDOSCOPY [facility] Colon MICRO TECH ENDOSCOPY 09/02/2023 [id number] / / [id number] documented as of this encounter Care Teams Local Government Legislator Relationship Specialty Start Date End Date Wendy Cui MD [address] [address] PCP - General Internal Medicine 08/14/16 documented as of this encounter
--- OUTSIDE RECORDS SUMMARY | 2023-05-31 15:43 | External Medical Summary | Summary of Care ---
Author Name Unknown Organization [facility] Address [address] [place] [address] Phone [phone] Care Team Providers Care Senior Quality Analyst Name Role Phone Wendy Cui MD [facility] Care Provider Reason for Referral * Ancillary Services (Within 10 days (routine)) - Authorized Specialty Diagnoses / Procedures Referred By Contact Referred To Contact Interventional Radiology / Radiology Diagnoses Balance disorder José Mccullough DO [address] [place] [address] Referral ID Status Reason Start Date Expiration Date Visits Requested Visits Authorized [id number] Authorized Ancillary Services Required 3 [phone] Question Answer Referral Priority Within 10 days (routine) Where should this appointment be scheduled? ising Where Will The Procedure Be Performed? [facility] Comments Please enter the reason for consult: LP Are outside images available?: No Encounter Details Date Type Department Care Team (Late st Contact Info) Description 04/24/2023 Telephone Infectious Disease [address] [address] José Mccullough DO [address] [place], [place] [phone] Allergies Active Allergy Reactions Criticality Noted Date [...] mouth in the morning. 0 12/18/2016 Active [email or web address] STRP CHECK BLOOD SUGAR TWICE DAILY 0 [...] Tablet Sublingual (Nitrostat)Indication s:Coronary artery disease involving [place] coronary artery of [place] heart without angina pectoris PLACE 1 TABLET [...] use 12/16/2018 Coronary artery disease invo lving [place] coronary artery of [place] heart without angina pectoris 04/18/2018 S/P angioplasty [...] encounter Miscellaneous Notes * Telephone Encounter - José Mccullough, - 04/24/2023 10:01 AM EST BRIEF OUTPATIENT UPDATE NOTE BACKGROUND INFORMATION Patient diagnosed in 1989. Was on Genvoya when he established with [facility] in 01/2020. Transitioned to Biktarvy in 04/2021. [...] LP ordered CC: Neurology & ID NN José Mccullough DO Infectious Diseases documented in this encounter Plan of Treatment Upcoming Encounters Date Type Department Care Team (Late st Contact Info) Description 06/20/2023 12:40 PM EST Office Visit Infectious Disease [facility] [address] [facility] [place] [address] Gil Weston MD [address] [place] [address] 08/10/2023 2:00 PM EDT Office Visit Neurology [facility] [address] [facility] [place] [address] Brooke Carty PA-C [address] [facility] [place] [address] Scheduled Orders Name Type Priority Associated Diagnoses [...] Expires: 04/24/2024 EXTRA CSF Lab Routine Expected: 03/31 (Approximate), Expires: 04/24/2024 GLUCOSE, CSF Lab Routine [...] Balance disorder Expected: 04/25/2023 (Approximate), Expires: 04/24/2024 CULTURE,FUNGUS,NON-DERM Lab Routine Balance disorder Expected: 04/25/2023 (Approximate), Expires: 04/24/2024 CULTURE, AFB Lab Routine Balance disorder Expected: 04/25/2023 (Approximate), Expires: 04/24/2024 Scheduled Procedures Name Priority Associated Diagnoses Date/Ti [...] this encounter Medical Devices Implanted Type Area Outside Installer Apprentice Device Identifier Shelf Expiration Date Model / Serial / Lot Sureclip 16mm 235cm - [id number] Implanted:Qty: 1 on 09/22/2021 by Thomas Boone MD at ENDOSCOPY [facility] Colon MICRO TECH ENDOSCOPY 09/02/2023 [id number] / / [id number] documented as of this encounter Visit Diagnoses Diagnosis Balance disorder- Primary Other symptoms involving nervous and musculoskeletal systems documented in this encounter Care Teams Senior Quality Analyst Relationship Specialty Start Date End Date Wendy Cui MD [address] [place] [address] PCP - General Internal Medicine 08/14/16 documented as of this encounter
--- OUTSIDE RECORDS SUMMARY | 2023-05-31 15:43 | External Medical Summary ---
Author Name Unknown Address Unknown Organization : Laboratory Report Ordering Provider Test Date Status DULCE JAMESON 03/14/2023 15:31:57 Final Observation Date Value Abnormality Reference (Units ) Status HIV-1 GENOTYPE 03/14/2023 15:31:57 SEE BELOW Final HIV-1 GENOTYPE 03/14/2023 15:31:57 NOT DETECTED Final We are unable to obtain a Ge notype from this
sample. The most common reasons for failure
to genotype are insufficient viral load,
mutations in the viral genome at the assay
priming sites, and presence of inhibitory
substance in the sample. Please correlate
this result with any recent viral load for
this patient and resubmit if clinically
warranted. A minimum viral load of 400
copies/mL is required for testing.
HIV Subtype: NOT DETERMINED

A ntiretroviral drugs Resistance Mutations Detected
Predicted

! !
NRTIs ! !
ZDV (zidovudine or Retrovir) !N/A!
ABC (abacavir or Ziagen) !N/A!
ddI (didanosine or Videx) !N/A!
3TC (lamivudine or Epivir) !N/A!
FTC (emtricitabine or Emtriva) !N/A!
d4T (stavudine or Zerit) !N/A!
TDF (tenofovir or Viread) !N/A!
!___!
! !
NNRTIs ! !
ETR (etravirine or Intelence) !N/A!
EFV (efavirenz or Sustiva) !N/A!
NVP (nevirapine or Viramune) !N/A!
RPV (rilpivirine or Edurant) !N/A!
ESTRELLITA (doravirine or Pifeltro) !N/A!
!___!
! !
PIs ! !
FPV (fos-amprenavir or Lexiva) !N/A!
IDV (indinavir or Crixivan) !N/A!
NFV (nelfinavir or Viracept) !N/A!
SQV (saquinavir or Invirase) !N/A!
LPV (lopinavir or Kaletra) !N/A!
ATV (atazanavir or Reyataz) !N/A!
TPV (tipranavir or Aptivus) !N/A!
DRV (darunavir or Prezista) !N/A!
! !
!___!
PRB = PROBABLE OR EMERGING RESISTANCE
OTHER MUTATIONS DETECTED:
RT GENE MUTATIONS: N/A
[place] GENE MUTATIONS: N/A

[facility] Dec 2021 Interpretation Algorithm
The method used in this test is RT-PCR and sequencing
of the HIV-1 polymerase gene.
The phrases 'resistance predicted' and 'probable
or emerging resistance' refer to the application of
the interpretive rules. The FDA has not reviewed
all of the interpretive rules used by the laboratory
to predict drug resistance. FDA may not currently
recognize some of the HIV gene mutations reported as
predictive of drug resistance, but the laboratory
considers these mutations to be associated with
resistance to anti-viral drugs based on current
clinical or scientific studies. The test has been
validated pursuant to CLIA regulations and is not
considered investigational or for research use only.
Treatment decisions should be made in consideration of
all relevant clinical and laboratory findings and the
prescribing information for the drugs.
This test was developed and its analytical performance
characteristics have been determined by [facility].
It has not been cleared or approved by FDA. This assay
has been validated pursuant to the CLIA regulations
and is used for clinical purposes. HIV-1 INTEGRASE GENOTYPE 03/14/2023 15:31:57 SEE BELOW Final VALUE OF LAST VIRAL LOAD 03/14/2023 15:31:57 NG (copies/mL) Final DATE VIRAL LOAD COLLECTED 03/14/2023 15:31:57 NG Final RALTEGRAVIR RESISTANCE 03/14/2023 15:31:57 TNP Final Test Not Performed. We were unable to obtain a
genotype from this sample. Reasons for failure
to genotype commonly include: insufficient viral
load, mutations in the genome at the priming sites,
or presence of PCR inhibitors. Please correlate
this result with a recent viral load for this
patient, and resubmit a new sample if warranted. ELVITEGRAVIR RESISTANCE 03/14/2023 15:31:57 TNP Final Test Not Performed. We were unable to obtain a
genotype from this sample. Reasons for failure
to genotype commonly include: insufficient viral
load, mutations in the genome at the priming sites,
or presence of PCR inhibitors. Please correlate
this result with a recent viral load for this
patient, and resubmit a new sample if warranted. DOLUTEGRAVIR RESISTANCE 03/14/2023 15:31:57 TNP Final Test Not Performed. We were unable to obtain a
genotype from this sample. Reasons for failure
to genotype commonly include: insufficient viral
load, mutations in the genome at the priming sites,
or presence of PCR inhibitors. Please correlate
this result with a recent viral load for this
patient, and resubmit a new sample if warranted. BICTEGRAVIR RESISTANCE 03/14/2023 15:31:57 TNP Final Test Not Performed. We were unable to obtain a
genotype from this sample. Reasons for failure
to genotype commonly include: insufficient viral
load, mutations in the genome at the priming sites,
or presence of PCR inhibitors. Please correlate
this result with a recent viral load for this
patient, and resubmit a new sample if warranted. CABOTEGRAVIR RESISTANCE 03/14/2023 15:31:57 TNP Final Test Not Performed. We were unable to obtain a
genotype from this sample. Reasons for failure
to genotype commonly include: insufficient viral
load, mutations in the genome at the priming sites,
or presence of PCR inhibitors. Please correlate
this result with a recent viral load for this
patient, and resubmit a new sample if warranted.
Mutations Detected:N/A
[facility] June 2022 Interpretation Algorithm
The method used in this test is RT-PCR and sequencing of
the HIV-1 integrase gene. The phrases 'resistance predicted'
and 'probable or emerging resistance' refer to the application
of the interpretive rules. The FDA has not reviewed all of the
interpretive rules used by the laboratory to predict drug
resistance. FDA may not currently recognize some of the HIV
gene mutations reported as predictive of drug resistance, but
the laboratory considers these mutations to be associated with
resistance to anti-viral drugs based on current clinical or
scientific studies.
This test was developed and its analytical performance
characteristics have been determined by [facility].
It has not been cleared or approved by FDA. This assay has
been validated pursuant to the CLIA regulations and is used
for clinical purposes.
For more information on this test, go to:
http://education.[employer]/faq/PKF368
(This link is being provided for informational/educational
purposes only.)
Test performed by [facility]
[address] [facility],
[place] [address]

Mental Telepathist: Elke Garcia MD,PHD,TATIANA
Test Reported by [facility],
[facility] [facility] [employer],
[address] [place], [place]
Isaac Chen M.D., Ph.D., Director of Laboratories
, [facility] [id number] Performing Location
--- OUTSIDE RECORDS SUMMARY | 2023-05-31 15:43 | External Medical Summary | Summary of Care ---
Author Name Unknown Organization [facility] Address [address] [place] [address] Phone [phone] Care Team Providers Care Biofuels Processing Technician Name Role Phone Wendy Cui MD [facility] Care Provider Reason for Visit * Reason Onset Date Comments Status Check 04/11/2023 Medication Discussion 04/11/2023 Encounter Details Date Type Department Care Team (Late st Contact Info) Description 04/11/2023 Telephone [facility] Infectious Disease [address] [place] [address] José Mccullough, [address] [place], [place] [id number] Status Check; Medication Discussion Allergies Active Allergy Reactions Criticality Noted Date Comments Penicillins Rash 03/17/2016 documented as of this encounter (statuses as of 04/12/2023) Medications Medication Sig Dispensed Refills Start Date [...] mouth in the morning. 0 12/18/2016 Active [employer] BLUE STRP CHECK BLOOD SUGAR TWICE DAILY [...] Tablet Sublingual (Nitrostat)Indication s:Coronary artery disease involving [place] coronary artery of [place] heart without angina pectoris PLACE 1 TABLET [...] as of this encounter (statuses as of 04/12/2023) Active Problems Problem Noted Date Diagnosed Date Depressive disorder 11/16/2021 Essential hypertension with goal blood pressure less than 130/80 12/25/2018 Dyslipidemia, goal LDL below 70 12/16/2018 History of tobacco use 12/16/2018 Coronary artery disease invo lving [place] coronary artery of [place] heart without angina pectoris 04/18/2018 S/P angioplasty with stent 04/18/2018 Chronic diarrhea 08/14/2016 HIV (human immunodeficiency virus infection) documented as of this encounter (statuses as of 04/12/2023) Social History Tobacco Use Types Packs/Day Years [...] Telephone Encounter - Ignacia Monteiro OSA - 04/12/2023 8:[address] Mccullough, please see message below * Telephone Encounter - Jesus Pan OSA - 04/11/2023 3:58 PM EST Patient returned call. Please call back. Thank you * Telephone Encounter - José Mccullough DO - 04/11/2023 3:36 PM EST BRIEF TELEPHONE NOTE 04/11/2023 @ 3:36 PM Called the pt to discuss LP. There was no answer. Message was left. José Mccullough DO Infectious Diseases documented in this encounter Plan of Treatment Upcoming Encounters Date Type Department Care Team (Late st Contact Info) Description 04/12/2023 1:30 PM EST Office Visit Cardiology, [facility] [address] [place] [address] Sami Beauchamp DO [address] [place] [address] 06/20/2023 12:40 PM EST Office Visit Infectious Disease [facility] [address] [facility] [place] [address] Gil Weston MD [address] [place] [address] 08/10/2023 2:00 PM EDT Office Visit Neurology [facility] [address] [facility] [place] [address] Brooke Carty PA-C [address] [facility] [place] [address] Scheduled Procedures Name Priority Associated Diagnoses Date/Ti [...] this encounter Medical Devices Implanted Type Area Flash Welding Machine Operator Device Identifier Shelf Expiration Date Model / Serial / Lot Sureclip 16mm 235cm - [id number] Implanted:Qty: 1 on 09/22/2021 by Thomas Boone MD at ENDOSCOPY [facility] Colon MICRO TECH ENDOSCOPY 09/02/2023 [id number] / / [id number] documented as of this encounter Care Teams Biofuels Processing Technician Relationship Specialty Start Date End Date Wendy Cui MD [address], [place] [address] PCP - General Internal Medicine 08/14/16 documented as of this encounter
--- OUTSIDE RECORDS SUMMARY | 2023-05-31 15:43 | External Medical Summary | Summary of Care ---
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 Name Role Phone Wendy Cui MD [facility] Care Provider Reason for Referral * Evaluate & Treat - Unlimited Visits (Within 10 days (routine)) - Authorized Specialty Diagnoses / Procedures Referred By Contac t Referred To Contact Infectious Diseases Diagnoses Major depressive disorder with current active episode, unspecified depression episode severity, unspecified whether recurrent Gisell Mccullough DO [address] [place] [address] Referral ID Status Reason Start Date Expiration Date Visits Requested Visits Authorized [id number] Authorized Specialty Services Required [phone] Question Answer Referral Priority Within 10 days (routine) Where should this appointment be scheduled? [facility] Subspecialties: Psychology, Behavorial Health Comments therapy referral * Evaluate & Treat - Unlimited Visits (Within 10 days (routine)) - Authorized Specialty Diagnoses / Procedures Referred By Contac t Referred To Contact Infectious Diseases Diagnoses Major depressive disorder with current active episode, unspecified depression episode severity, unspecified whether recurrent HIV disease (HCC) Gisell Mccullough DO [address] [place] [address] Referral ID Status Reason Start Date Expiration Date Visits Requested Visits Authorized [id number] Authorized Specialty Services Required [phone] Question Answer Referral Priority Within 10 days (routine) Where should this appointment be scheduled? [facility] Subspecialties: Behavorial Health * Evaluate & Treat - Unlimited Visits (Within 10 days (routine)) - Authorized Specialty Diagnoses / Procedures Referred By Erika damico Referred To Contact Infectious Diseases Diagnoses Major depressive disorder with current active episode, unspecified depression episode severity, unspecified whether recurrent HIV disease (HCC) Gisell Mccullough DO [address] [place] [address] Referral ID Status Reason Start Date Expiration Date Visits Requested Visits Authorized [id number] Authorized Specialty Services Required [phone] Question Answer Referral Priority Within 10 days (routine) Where should this appointment be scheduled? [facility] Subspecialties: Nutrition & Weight Management * Evaluate & Treat - Unlimited Visits (Within 10 days (routine)) - Authorized Specialty Diagnoses / Procedures Referred By Erika damico Referred To Contact Infectious Diseases Diagnoses Major depressive disorder with current active episode, unspecified depression episode severity, unspecified whether recurrent HIV disease (HCC) Gisell Mccullough DO [address] [place] [address] Referral ID Status Reason Start Date Expiration Date Visits Requested Visits Authorized [id number] Authorized Specialty Services Required [phone] Question Answer Referral Priority Within 10 days (routine) Where should this appointment be scheduled? [facility] Subspecialties: Psychology Encounter Details Date Type Department Care Team (Late st Contact Info) Description 03/14/2023 2:40 PM EST Office Visit Infectious Disease [facility] [place] [address] [place] [address] Gisell Mccullough DO [address] [place], [place] [id number] HIV disease (HCC)*; Major depressive disorder with current active episode, unspecified depression episode severity, unspecified whether recurrent Allergies Active Allergy Reactions Criticality Noted Date [...] mouth in the morning. 0 12/18/2016 Active [employer] UL[employer] BLUE STRP CHECK BLOOD SUGAR TWICE [...] Tablet Sublingual (Nitrostat)Indicat ions:Coronary artery disease involving burns paiute coronary artery of burns paiute heart without angina pectoris PLACE 1 TABLET [...] the morning. 30 Tablet 2 08/08/2022 04/06/2023 Discontinued( Refill) Biktarvy 50-200-25 MG Oral Tablet (Bictegravir-Emtri citabine-Tenofovir ) Take 1 Tablet by mouth in the morning. 90 Tablet 4 11/15/2022 03/14/2023 documented as of this encounter (statuses as of 04/24/2023) Active Problems Problem Noted Date Diagnosed Date Depressive disorder 11/16/2021 Essential hypertension with goal blood pressure less than 130/80 12/25/2018 Dyslipidemia, goal LDL below 70 12/16/2018 History of tobacco use 12/16/2018 Coronary artery disease invo lving burns paiute coronary artery of burns paiute heart without angina pectoris 04/18/2018 S/P angioplasty [...] on file documented as of this encounter Last Filed Vital Signs Vital Sign Reading Time Taken Comments Blood Pressure 108/60 03/14/2023 2:41 PM EST Pulse 69 03/14/2023 2:41 PM EST Temperature 36.4 C (97.5 F) 03/14/2023 2:41 PM ES T Respiratory Rate 16 03/14/2023 2:41 PM EST Oxygen Saturation - - Inhaled Oxygen Concentration - - Weight 72.2 kg (159 lb 1.9 oz) 03/14/2023 2:41 P M EST Height - - Body Mass Index 21 12/12/2021 12:54 PM EDT documented in this encounter Patient Instructions * Patient Instructions* Gisell Mccullough, - 03/14/2023 1:56 PM EST Images from the original note were not included. It is your responsibility to read & follow these instructions Be sure to do the following: Keep all appointments with all of your healthcare providers Keep a current telephone number on file with us Complete all bloodwork, imaging or other testing on time Contact us before you run out of any medication that we prescribe or recommend Continue to contact us until you have your medication in-hand Use the patient portal to communicate with us (if possible) Contact us immediately if any of the following occur: There is something that you do not understand You are expecting a medication or refill but have not received it You have any issues with medications that we prescribe You have a significant change in your health (including ) You have a significant change in your medications You need help with scheduling tests or appointments You do not have a confirmed follow up appointment Please be aware of the following: Failure to request refills, complete labs/imaging or keep appointments could result in adverse health outcomes It may take time for us to respond to your calls/messages. If you do not get an immediate response,continue to contact us If you experience any new/worsening/concerning symptoms, seek immediate medical attention In an urgent or emergency situation, do not wait for a reply from us. Instead, go to the nearest Emergency Department immediately (call 911 if necessary) My contact information: documented in this encounter Progress Notes * Gisell Mccullough, - 03/14/2023 2:40 PM EST INFECTIOUS DISEASE [facility]: Salas Bach is a 67 year old male here for follow up. Background information: Patient diagnosed in 1989. Was on Genvoya when he established with [facility] in 01/2020. Transitioned to Biktarvy in 04/2021. Patient's current status: The patient reports feeling OK. Still having some depression and has been falling. No issues with adherence. Tolerating ART well. Review of patient's allergies indicates: Allergen Reactions Penicillins Rash Current Outpatient Medications Medication Sig Dispense Refill aspirin enteric coated 81 MG TBEC Take 1 Tablet by mouth at bedtime. lisinopril (PRINIVIL) 2.5 MG Tablet Take 1 Tablet by mouth in the morning. oxybutynin XL (DITROPAN XL) 5 MG TB24 Take 1 Tablet by mouth at bedtime. Gabapentin 600 MG Tablet Take 1 Tablet by mouth in the morning and 1 Tablet at noon and 1 Tablet before bedtime. (Patient not taking: Reported on 10/26/2022) metoprolol succinate XL (TOPROL XL) 50 MG TB24 Take 1 Tablet by mouth in the morning. [employer] BLUE STRP CHECK BLOOD SUGAR TWICE DAILY 0 glipiZIDE (GLUCOTROL) 5 MG Tablet Take 2 Tablets by mouth 2 times a day 30 minutes before morning and evening meals. Cyanocobalamin (VITAMIN B-12) [address] 1 Tablet under the tongue in the morning. pantoprazole (PROTONIX) 40 MG TBEC Take 1 Tablet by mouth in the morning. In the morning.. 4 Cholecalciferol (VITAMIN D3) 1000 units CAPS Take by mouth at bedtime. Isosorbide Dinitrate 30 MG Tablet Take 3 Tablets by mouth in the morning. Jardiance 25 MG Oral Tablet Take 1 Tablet by mouth in the morning. glipiZIDE 10 MG Oral Tablet (GLUCOTROL) Take 1 Tablet by mouth 2 times a day 30 minutes before morning and evening meals. Ocuvite Adult 50+ Oral Capsule Take 1 Capsule by mouth at bedtime. Atorvastatin Calcium 40 MG Oral Tablet (Lipitor) TAKE 1 TABLET BY MOUTH DAILY EVERY EVENING 30 Tab 5 Ezetimibe 10 MG Oral Tablet (Zetia) TAKE 1 TABLET BY MOUTH DAILY 30 Tab 5 Isosorbide Mononitrate ER 30 MG Oral Tablet Extended Release 24 Hour (Imdur) (Patient not taking: Reported on 09/22/2021) Nitroglycerin 0.4 MG Sublingual Tablet Sublingual (Nitrostat) PLACE 1 TABLET UNDER THE TONGUE EVERY5 MINUTES NEEDED FOR CHEST PAIN 25 Tablet 5 Venlafaxine HCl ER 225 MG Oral Tablet Extended Release 24 Hour Take 1 Tablet by mouth in the morning. 30 Tablet 2 buPROPion HCl ER (XL) 300 MG Oral Tablet Extended Release 24 Hour (Wellbutrin XL) Take 1 Tablet by mouth in the morning. Take with 150 mg tab for a total 450 mg daily. 30 Tablet 2 buPROPion HCl ER (XL) 150 MG Oral Tablet Extended Release 24 Hour (Wellbutrin XL) Take 1 Tablet by mouth in the morning. 30 Tablet 2 Gabapentin 800 MG Oral Tablet (Neurontin) Take 1 Tablet by mouth in the morning and 1 Tablet at noon and 1 Tablet before bedtime. No current facility-administered medications for this visit. 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 I25.10 S/P angioplasty with stent Z95.820 Dyslipidemia, goal LDL below 70 E78.5 History of tobacco use Z87.891 Essential hypertension with goal blood pressure less than 130/80 I10 Depressive disorder F32.A HIV (human immunodeficiency virus infection) (HCC) B20 Review of Systems: As reviewed in HPI; a complete ROS was otherwise negative BP 108/60 | Pulse 69 | Temp 36.4 C (97.5 F) (Tympanic) | Resp 16 | Wt 72.2 kg (159 lb 1.9 oz) |BMI 21.00 kg/m | BSA 1.93 m PHYSICAL EXAM: Vitals: as above Gen/Constitution: appears at stated age, NAD, nontoxic, sitting up in chair Head: AT, NC, no supplemental oxygen in place Eyes: pupils equal, sclera anicteric, EOMI, no conjunctival injection ENT: MMM, no purulent rhinorrhea, trachea midline, hearing grossly nml Card: no LE edema, no JVD, warm, well-perfused Resp: not tachypneic, nml effort, symmetric chest rise, no accessory muscle use GI: abdomen soft, NT, no rigidity, no guarding Derm/skin: skin warm, not diaphoretic, no jaundice, no rash Vasc: no IV Neuro: alert, oriented, speaking in full sentences, speech intelligible LABS: Labs reviewed as indicated below: Latest Reference Range & Units 10/17/22 10:39 Sodium 135 - 146 mmol/L 141 Potassium 3.5 - 5.1 mmol/L 4.2 Chloride 98 - 107 mmol/L 103 CO2 22 - 32 mmol/L 25 BUN 6 - 20 mg/dL 17 Creatinine 0.6 - 1.2 mg/dL 1.1 Estimated Glomerular Filtration Rate >=60 mL/min 75 Anion Gap 7 - 15 mmol/L 13 Glucose 70 - 120 mg/dL 169 (H) Calcium 8.4 - 10.2 mg/dL 9.3 Protein 6.0 - 8.3 g/dL 7.0 CBC Rpt CBC WITH WBC DIFFERENTIAL Rpt WBC 4.00 - 10.80 K/uL 5.94 HGB 14.0 - 16.8 g/dL 14.3 HCT 40.0 - 48.4 % 41.1 MCV 82.0 - 99.5 fL 102.2 PLT 140 - 400 K/uL 174 Absolute Neutrophils 1.80 - 7.70 K/uL 3.13 Absolute Lymphocytes 1.00 - 4.80 K/ul 1.82 Absolute Monocytes 0.00 - 1.10 K/uL 0.62 Absolute Eosinophils 0.00 - 0.70 K/uL 0.31 Absolute Basophils 0.00 - 0.20 K/uL 0.04 Clinical Significance This result contains rich text formatting which cannot be displayed here. Comment This result contains rich text formatting which cannot be displayed here. HIV RNA Log <=0.00 log copies/mL 2.15 (H) References This result contains rich text formatting which cannot be displayed here. Result Comment This result contains rich text formatting which cannot be displayed here. HIV RNA Result <=0 copies/mL 140 (H) HIV-1 RNA QUANTITATIVE Rpt ! RPR Screen Nonreactive Nonreactive TREPONEMA PALLIDUM AB, PARTICLE AGGLUTINATION Rpt ! Albumin 3.8 - 5.0 g/dL 4.3 AST 10 - 50 U/L 35 ALT 10 - 50 U/L 51 (H) Alkaline Phosphatase 35 - 130 U/L 78 Bilirubin, Total <=1.2 mg/dL 0.3 CD4P T-CELL SUBSET PANEL, FLOW CYTOMETRY PANEL Rpt ! CD4:CD8 Ratio 0.8 - 3.5 % 0.7 (L) CD4P T-CELL SUBSET PANEL, FLOW CYTOMETRY Rpt ! WBC/%LYMPH, FLOW CYTOMETRY Rpt Total WBC Count 4.0 - 10.8 K/uL 5.9 Percent Lymphs 18.0 - 42.0 % 30.6 (H): Data is abnormally high !: Data is abnormal (L): Data is abnormally low Rpt: View report in Results Review for more information MICROBIOLOGY DATA: SEE ABOVE IMAGING: (Reviewed; most pertinent / recent below; see EMR for further info) MRI BRAIN W WO CONTRAST Narrative: EXAM MRI BRAIN W WO CONTRAST - 11/18/2022 HISTORY HIV + balance issues r/o lesions and cerebellar atrophy COMPARISON None. TECHNIQUE Multiplanar, multisequence MRI of the brain was performed before and after the administration of intravenous contrast. FINDINGS No acute infarct, acute intracranial hemorrhage, mass effect, midline shift, hydrocephalus, or extra-axial fluid collection. No abnormal enhancement. Diffuse parenchymal volume loss with proportionate sulcal and ventricular prominence, more pronounced in the parietal and temporal lobes. Small areas of encephalomalacia is noted involving the right temporal lobe, may be sequela of prior trauma. T2/FLAIR hyperintensities in the periventricular and deep cerebral white matter are nonspecific, but most commonly represent chronic microvascular ischemic changes. The expected major intracranial vascular flow voids are preserved. The paranasal sinuses are clear. Bilateral mastoid air cells are clear. Impression: IMPRESSION 1. No acute intracranial abnormality. 2. Global parenchymal volume loss, more pronounced in the parietal and temporal lobes, with minimalmicrovascular ischemic changes. 3. Small areas of encephalomalacia involving the right temporal lobe, may be sequela of prior trauma. I have personally reviewed this examination and agree with the resident/fellow physician's interpretation. IMPRESSION H/o syphilis (1970s; tx w/ IM PCN x3) HIV PLAN Continue Biktarvy Standing labs ordered Follow closely w/ Podiatry (DM w/ neuropathy) Referrals to HIV therapy made today Influenza vaccine is UTD ([facility]) Pt reports he got MCV at [facility] All other health maintenance deferred to PCP Follow up with ID in 3 months I spent a total of 40 minutes on the date of service in preparation, delivery, and documentation ofthe care provided to Salas Bach excluding any time spent in the performance of separately billed services. Gisell Mccullough DO Infectious Disease [address] [place] [address] documented in this encounter Miscellaneous Notes * Addendum Note - Gisell Mccullough DO - 04/24/2023 10:22 AM ESTAddended by: GISELL MCCULLOUGH on: 04/24/2023 10:22 AM Modules accepted: Orders documented in this encounter Plan of Treatment Upcoming Encounters Date Type Department Care Team (Late st Contact Info) Description 06/20/2023 12:40 PM EST Office Visit Infectious Disease [address] [place] [address] [facility] Weston [facility] [address] [facility] [address] 08/10/2023 2:00 PM EDT Office Visit Neurology [address] [place] [address] Brooke Carty PA-C [address] [place] [address] [place] [address] Scheduled Orders Name Type Priority Associated Diagnoses Orde r Schedule SYPHILIS ANTIBODY SCREEN WITH REFLEX TO RPR Lab Routine HIV disease ([facility]) Every 3 Months for 12 Occurrences starting 03/14/2023 until 03/14/2024, 1 completed CBC WITH WBC DIFFERENTIAL Lab Routine HIV disease ([facility]) Every 3 Months for 12 Occurrences starting 03/14/2023 until 03/14/2024, 1 completed COMPREHENSIVE METABOLIC PANEL Lab Routine HIV disease ([facility]) Every 3 Months for 12 Occurrences starting 03/14/2023 until 03/14/2024, 1 completed HIV-1 RNA QUANTITATIVE Lab Routine HIV disease ([facility]) Every 3 Months for 12 Occurrences starting 03/14/2023 until 03/14/2024, 1 completed QUANTIFERON TB GOLD PLUS Lab Routine HIV disease ([facility]) Every 3 Months for 12 Occurrences starting 03/14/2023 until 03/14/2024, 1 completed SYPHILIS ANTIBODY SCREEN WITH REFLEX TO RPR Lab Routine HIV disease ([facility]) Every 3 Months for 12 Occurrences starting 03/14/2023 until 03/14/2024 CD4P T-CELL SUBSET PANEL, FLOW CYTOMETRY PANEL Lab Routine HIV disease ([facility]) Every 3 Months for 12 Occurrences starting 03/14/2023 until 03/14/2024, 1 completed CHLAMYDIA TRACHOMATIS AND NEISSERIA GONORRHOEAE, AMPLIFIED PROBE Lab Routine HIV disease ([facility]) Every 3 Months for 12 Occurrences starting 03/14/2023 until 03/14/2024 Scheduled Procedures Name Priority Associated Diagnoses Date/Ti me COLONOSCOPY FLEXIBLE PROXIMAL DIAGNOSTIC Recall History of colon polyps Scheduled Referrals Name Type Priority Associated Diagnoses Orde r Schedule HIV REFERRAL OP Referral Within 10 days (routine) Major depressive disorder with current active episode, unspecified depression episode severity, unspecified whether recurrent HIV disease (HCC) Ordered: 03/14/2023 HIV REFERRAL OP Referral Within 10 days (routine) Major depressive disorder with current active episode, unspecified depression episode severity, unspecified whether recurrent HIV disease (HCC) Ordered: 03/14/2023 HIV REFERRAL OP Referral Within 10 days (routine) Major depressive disorder with current active episode, unspecified depression episode severity, unspecified whether recurrent HIV disease (HCC) Ordered: 03/14/2023 HIV REFERRAL OP Referral Within 10 days (routine) Major depressive disorder with current active episode, unspecified depression episode severity, unspecified whether recurrent Ordered: 04/24/2023 Health Maintenance Due Date Last [...] this encounter Medical Devices Implanted Type Area Boat Washer Device Identifier Shelf Expiration Date Model / Serial / Lot Sureclip 16mm 235cm - [id number] Implanted:Qty: 1 on 09/22/2021 by Thomas Boone MD at ENDOSCOPY [facility] Colon MICRO TECH ENDOSCOPY 09/02/2023 [id number] / / [id number] documented as of this encounter Procedures Procedure Name Priority Date/Time Associated Diagnosis Comments HIV-1 RESISTANCE, PROVIRAL DNA (RTI, PI, INTEGRASE INHIBITORS) Routine 03/14/2023 3:31 PM EST HIV disease (HCC) HIV-1 GENOTYPE (RTI, PI, INTEGRASE INHIBITORS) Routine 03/14/2023 3:31 PM EST HIV disease (HCC) documented in this encounter Results * (ABNORMAL) HIV-1 RESISTANCE, PROVIRAL DNA (RTI, PI, INTEGRASE INHIBITORS) (03/14/2023 3:31 PM EST) HIV-1 ND, RT Proviral DNA DETECTED( A) 03/23/2023 11:05 PM EST [facility] HIV-1 Integrase Proviral DNA DETECTED( A) 03/23/2023 11:05 PM EST [facility] Comment: HIV Subtype: B Antiretroviral drugs Resistance Mutations Detected Predicted ! ! NRTIs ! ! ZDV (zidovudine or Retrovir) ! NO! ABC (abacavir or Ziagen) ! NO! ddI (didanosine or Videx) ! NO! 3TC (lamivudine or Epivir) ! NO! FTC (emtricitabine or Emtriva) ! NO! d4T (stavudine or Zerit) ! NO! TDF (tenofovir or Viread) ! NO! !___! ! ! NNRTIs ! ! ETR (etravirine or Intelence) ! NO! EFV (efavirenz or Sustiva) ! NO! NVP (nevirapine or Viramune) ! NO! RPV (rilpivirine or Edurant) ! NO! ESTRELLITA (doravirine or Pifeltro) ! NO! !___! ! ! PIs ! ! FPV (fos-amprenavir or Lexiva) ! NO! IDV (indinavir or Crixivan) ! NO! NFV (nelfinavir or Viracept) ! NO! SQV (saquinavir or Invirase) ! NO! LPV (lopinavir or Kaletra) ! NO! ATV (atazanavir or Reyataz) ! NO! TPV (tipranavir or Aptivus) ! NO! DRV (darunavir or Prezista) ! NO! !___! ! ! INIs ! ! RAL (raltegravir or Isentress) ! NO! EVG (elvitegravir or Stribild) ! NO! DTG (dolutegravir or Tivicay) ! NO! BIC (bictegravir or Biktarvy) ! NO! CAB (cabotegravir or Cabenuva) ! NO! ! ! !___! PRB = PROBABLE OR EMERGING RESISTANCE OTHER MUTATIONS DETECTED: RT GENE MUTATIONS: L214F ND GENE MUTATIONS: L63P IN GENE MUTATIONS: M50L [facility] Dec 2021 Interpretation Algorithm The method used in this test is PCR and ultradeep sequencing of the HIV-1 proviral DNA protease codons 1-99, reverse transcriptase codons 1-400 and/or integrase codons 1-288. This assay will report minority variants identified in 10% or more of the proviral DNA population. The phrases 'resistance predicted' and 'probable or [...] analytical performance characteristics have been determined by [email or web address]. It has not been cleared or approved by FDA. This assay has been validated pursuant to the CLIA regulations and is used for clinical purposes. Treatment decisions should be made in consideration of all relevant clinical and laboratory findings and the prescribing information for the drugs. For additional information, please refer to http://education.DxNA/faq/MBX407 (This link is being provided for informational/ educational purposes only.) Test performed by [employer] [address] [place] [address] Casino Floor Walker: Elke Garcia MD,PHD,TATIANA Test Reported by [facility] [place], [facility], [address] [place], [place] Isaac Chen M.D., Ph.D., Director of Laboratories , [facility] [id number] Blood Venous blood specimen / Unknown Venipuncture / Unknown 03/14/2023 3:31 PM EST 03/14/2023 3:31 PM EST Gisell Mccullough DO LAB BLOOD ORDERA BLES Performing Organization Address City/State/[facility] Co de Phone Number [employer] NOTUS [address] [place] [address] * HIV-1 GENOTYPE (RTI, PI, INTEGRASE INHIBITORS) (03/14/2023 3:31 PM EST) [facility] HIV-1 Genotype SEE BELOW 03/28/2023 11:39 AM EST [employer] [place] NOT[facility] HIV-1 Genotype NOT DETECTED 03/28/2023 11:39 AM EST [employer] [place] [facility] Comment: We are unable to obtain a Genotype from this sample. The most common reasons [...] required for testing. HIV Subtype: NOT DETERMINED Antiretroviral drugs Resistance Mutations Detected Predicted ! ! [...] OTHER MUTATIONS DETECTED: RT GENE MUTATIONS: N/A ND GENE MUTATIONS: N/A [facility] Dec 2021 Interpretation Algorithm The method used [...] analytical performance characteristics have been determined by [email or web address]. It has not been cleared or approved by FDA. This assay has been validated pursuant to the CLIA regulations and is used for clinical purposes. HIV-1 Integrase Genotype SEE BELOW 03/28/2023 11:39 AM EST [facility] Value of Last Viral Load NG copies/m L 03/28/2023 11:39 AM [email or web address] Date Viral Load Collected NG 03/28/2023 11:39 AM EST [employer] [place] [facility] Raltegravir Resistance TNP 03/28/2023 11:39 AM [email or web address] [facility] Comment: Test Not Performed. We were unable to obtain a genotype from this sample. Reasons for failure to genotype commonly include: insufficient viral load, mutations in the genome at the priming sites, or presence of PCR inhibitors. Please correlate this result with a recent viral load for this patient, and resubmit a new sample if warranted. Elvitegravir Resistance TNP 03/28/2023 11:39 AM EST [facility] Comment: Test Not Performed. We were unable to obtain a genotype from this sample. Reasons for failure to genotype commonly include: insufficient viral load, mutations in the genome at the priming sites, or presence of PCR inhibitors. Please correlate this result with a recent viral load for this patient, and resubmit a new sample if warranted. Dolutegravir Resistance [facility] 03/28/2023 11:39 AM EST [facility] Comment: Test Not Performed. We were unable to obtain a genotype from this sample. Reasons for failure to genotype commonly include: insufficient viral load, mutations in the genome at the priming sites, or presence of PCR inhibitors. Please correlate this result with a recent viral load for this patient, and resubmit a new sample if warranted. Bictegravir Resistance [facility] 03/28/2023 11:39 AM EST [facility] Comment: Test Not Performed. We were unable to obtain a genotype from this sample. Reasons for failure to genotype commonly include: insufficient viral load, mutations in the genome at the priming sites, or presence of PCR inhibitors. Please correlate this result with a recent viral load for this patient, and resubmit a new sample if warranted. Cabotegravir Resistance [facility] 03/28/2023 11:39 AM EST [facility] Comment: Test Not Performed. We were unable to obtain a genotype from this sample. Reasons for failure to genotype commonly include: insufficient viral load, mutations in the genome at the priming sites, or presence of PCR inhibitors. Please correlate this result with a recent viral load for this patient, and resubmit a new sample if warranted. Mutations Detected:N/A The [email or web address] June 2022 Interpretation Algorithm The method used [...] analytical performance characteristics have been determined by [email or web address]. It has not been cleared or approved by FDA. This assay has been validated pursuant to the CLIA regulations and is used for clinical purposes. For more information on this test, go to: http://education.Intention Technology/faq/QRL478 (This link is being provided for informational/educational purposes only.) Test performed by [employer] [address] [place] [address] Casino Floor Walker: Elke Garcia MD,PHD,TATIANA Test Reported by [facility] [employer], [facility], [address] [place], [place] Isaac Chen M.D., Ph.D., Director of Laboratories , [place] [id number] Blood Venous blood specimen / Unknown Venipuncture / Unknown 03/14/2023 3:31 PM EST 03/14/2023 3:31 PM EST Gisell Mccullough DO LAB BLOOD ORDERA BLES [employer] [place] NOTUS [address] [place] [address] * QUANTIFERON TB GOLD PLUS (03/14/2023 3:31 PM EST) [facility] Quantiferon-TB Plus, 1T NEGATIVE NEGATIVE 03/18/2023 12:26 AM EST [employer] [place] NOTUS Comment: Negative test result. M. tuberculosis complex infection unlikely. NIL 0.06 IU/mL 03/18/2023 12:26 AM EST [employer] [place] [facility] Mitogen-NIL >10.00 IU/mL 03/18/2023 12:26 AM EST [employer] TB1-NIL 0.06 IU/mL 03/18/2023 12:26 AM EST [employer] TB2-NIL 0.08 IU/mL 03/18/2023 12:26 AM EST [employer] [place] [facility] Comment: The Nil tube value reflects the background interferon gamma immune response of the patient's blood sample. This value has been subtracted from the patient's displayed TB and Mitogen results. Lower than expected results with the Mitogen tube prevent false-negative Quantiferon readings by detect- ing a patient with a potential immune suppressive condition and/or suboptimal pre-analytical specimen handling. The TB1 Antigen tube is coated with the M. tuberculosis-specific antigens designed to elicit responses from TB antigen primed CD4+ helper T-lymphocytes. The TB2 Antigen tube is coated with the M. tuberculosis-specific antigens designed to elicit responses from TB antigen primed CD4+ helper and CD8+ cytotoxic T-lymphocytes. For additional information, please refer to http://education.DxNA/faq/KUV127 (This link is being provided for information/ educational purposes only.) Test Performed at: [email or web address] [address] [place] [address] Isaac Chen M.D., Ph.D.,Director of Laboratories Blood Venous blood specimen / Unknown Venipuncture / Unknown 03/14/2023 3:31 PM EST 03/14/2023 3:31 PM EST Gisell Mccullough DO LAB BLOOD ORDERA BLES [employer] [place] [facility] [address] [place] [address] * (ABNORMAL) HIV-1 RNA QUANTITATIVE (03/14/2023 3:31 PM EST) Pathologist [facility] HIV RNA Result <20(H) <=0 copies/ mL 03/16/2023 12:25 PM EST LABORATORY [facility] HIV RNA Log <1.30(H) <=0.00 log copies/ mL 03/16/2023 12:25 PM EST LABORATORY [facility] HIV Interpretation The result is not quantifiable: below the lower limit of detection (LLoD) of the assay. 03/16/2023 12:25 PM EST LABORATORY [facility] Clinical Significance Test results have been reported to [facility]. The HIV-1 assay is intended for use in conjunction with clinical presentation and other laboratory markers for the clinical management of HIV-1 infected patients. The test can be used to quantify HIV-1 RNA levels (viral load) in individuals living with HIV-1 for baseline viral load or who may have developed HIV-1 drug resistance while on anti-HIV-1 therapy or who may be noncompliant with anti-HIV-1 therapy. It can also be used to monitor HIV-1 disease progression before or during antiretroviral drug therapy. The HIV-1 assay is not intended for use as a screening test for the presence of HIV-1 in donated blood or plasma or as a diagnostic test to confirm the presence of HIV-1 infection. 03/16/2023 12:25 PM [facility] LABORATORY [facility] Result Comment The HIV-1 assay is an in vitro nucleic acid amplification test for the quantitation of human immunodeficiency virus type 1 (HIV-1) in EDTA plasma of MLW-4-dhxthvoa individuals using an automated system for specimen processing, amplification and detection. This test detects and quantifies, but does not discriminate between HIV groups M, N, and O subtypes. The test can quantitate HIV-1 RNA over a reportable range of 20-10,000,000 copies/mL (1.30-7.00 log copies/mL). For low volume specimens (<350uL of plasma) the reportable range is 50-10,000,000 copies/mL (1.70-7.00 log copies/mL). 03/16/2023 12:25 PM [facility] LABORATORY [facility] Comment The assay was verified and performance characteristics determined by the Molecular Diagnostics Laboratory at [facility]. This test is used for clinical purposes. 03/16/2023 12:25 PM [facility] LABORATORY [facility] References 1. Centers for Disease Control and Prevention and Association of Public Health Laboratories. Laboratory Testing for the Diagnosis of HIV Infection: Updated Recommendations. October 24, 2013. Available at http://stacks.cdc. gov/view/cdc/77760 2. Evans HF, Magdi MS, Hitesh CA, et al: Antiretroviral Drugs for Treatment and Prevention of HIV Infection in Adults: 2016 Recommendations of the International Antiviral Society-[place] Panel. LEE 2016;316(2):191-21 0. Available at https://jamanetwor k.com/journals/jam a/fullarticle/2533 073 3. Panel on Antiretroviral Guidelines for Adults and Adolescents: Guidelines for the Use of Antiretroviral Agents in Adults and Adolescents Living with HIV. U.S. Department of Health and Human Services. February 13, 2017. Available at https://aidsinfo.n ih.gov/guidelines/ html/1/adult-and-a dolescent-arv/3/te zxv-kvl-ymkuwxi-as uhhtefox-bxp-chanp w-up 03/16/2023 12:25 PM EST LAB[facility]ATORY [facility] Blood Venous blood specimen / Unknown Venipuncture / Unknown 03/14/2023 3:31 PM EST 03/14/2023 3:31 PM EST Gisell Mccullough DO LAB MOLECULAR OR DERABLES LABORATORY [facility] [address] [place] [address] * (ABNORMAL) COMPREHENSIVE METABOLIC PANEL (03/14/2023 3:31 PM EST) BUN 31(H) 6 - 20 mg/dL 03/15/2023 1:10 AM EST [facility] Creatinine 1.2 0.6 - 1.2 mg/dL 03/15/2023 1:10 AM EST [facility] Estimated Glomerular Filtration Rate 66 >=60 mL/min 03/15/2023 1:10 AM EST [facility] Comment:eGFR is calculated b ased on the CKD-EPI 2020 equation Sodium 136 135 - 146 mmol/L 03/15/2023 1:10 AM EST [facility] Potassium 4.9 3.5 - 5.1 mmol/L 03/15/2023 1:10 AM EST [facility] Chloride 101 98 - 107 mmol/L 03/15/2023 1:10 AM EST [facility] CO2 28 22 - 32 mmol/L 03/15/2023 1:10 AM EST [facility] Anion Gap 7 7 - 15 mmol/L 03/15/2023 1:10 AM EST [facility] Glucose 121(H) 70 - 120 mg/dL 03/15/2023 1:10 AM EST [facility] Albumin 4.2 3.8 - 5.0 g/dL 03/15/2023 1:10 AM EST [facility] AST 32 10 - 50 U/L 03/15/2023 1:10 AM EST [facility] Alkaline Phosphatase 95 35 - 130 U/L 03/15/2023 1:10 AM EST [facility] Bilirubin, Total 0.4 <=1.2 mg/dL 03/15/2023 1:10 AM EST [facility] Calcium 9.3 8.4 - 10.2 mg/dL 03/15/2023 1:10 AM EST [facility] Protein 6.6 6.0 - 8.3 g/dL 03/15/2023 1:10 AM EST [facility] ALT 40 10 - 50 U/L 03/15/2023 1:10 AM EST [facility] Blood Venous blood specimen / Unknown Venipuncture / Unknown 03/14/2023 3:31 PM EST 03/14/2023 3:31 PM EST Gisell Mccullough DO LAB BLOOD ORDERA BLES [facility] [address] [place] [address] documented in this encounter Visit Diagnoses Diagnosis HIV disease (HCC)- Primary Human immunodeficiency virus [HIV] disease Major depressive disorder with current active episode, unspecified depression episode severity, unspecified whether recurrent documented in this encounter Care Teams Long Chain Quiller Tender Relationship Specialty Start Date End Date Wendy Cui MD [address] [address] PCP - General Internal Medicine 08/14/16 documented as of this encounter"
--- OUTSIDE RECORDS SUMMARY | 2023-05-31 15:43 | External Medical Summary | Summary of Care ---
Author Name Unknown Organization [facility] Address [address] [place] [address] Phone [phone] Care Team Providers Care Flatwork Catcher Name Role Phone Wendy Cui MD [facility] Care Provider Reason for Visit * Reason Onset Date Comments Status Check 04/11/2023 Encounter Details Date Type Department Care Team (Late st Contact Info) Description 04/11/2023 Telephone [facility] Infectious Disease [address] [place] [address] José Mccullough, DO [address] [place] [address] Status Check Allergies Active Allergy Reactions Criticality Noted Date Comments Penicillins Rash 03/17/2016 documented as of this encounter (statuses as of 04/11/2023) Medications Medication Sig Dispensed Refills Start Date [...] Tablet Sublingual (Nitrostat)Indication s:Coronary artery disease involving [place] coronary artery of [place] heart without angina pectoris PLACE 1 [...] as of this encounter (statuses as of 04/11/2023) Active Problems Problem Noted Date Diagnosed Date Depressive disorder 11/16/2021 Essential hypertension with goal blood pressure less than 130/80 12/25/2018 Dyslipidemia, goal LDL below 70 12/16/2018 History of tobacco use 12/16/2018 Coronary artery disease invo lving [place] coronary artery of [place] heart without angina pectoris 04/18/2018 S/P angioplasty with stent 04/18/2018 Chronic diarrhea 08/14/2016 HIV (human immunodeficiency virus infection) documented as of this encounter (statuses as of 04/11/2023) Social History Tobacco Use Types Packs/Day Years [...] Miscellaneous Notes * Telephone Encounter - José Mccullough DO - 04/11/2023 3:36 PM EST BRIEF TELEPHONE NOTE 04/11/2023 @ 3:36 PM Called the pt to discuss LP. There was no answer. Message was left. José Mccullough DO Infectious Diseases documented in this encounter Plan of Treatment Upcoming Encounters Date Type Department Care Team (Late st Contact Info) Description 04/12/2023 1:30 PM EST Office Visit Cardiology, [facility] [address] [place] [address] Sami Beauchamp DO [address] [place] [address] 06/20/2023 12:40 PM EST Office Visit Infectious Disease [facility] [address] [place] [address] Gil Weston MD [address] [place] [address] 08/10/2023 2:00 PM EDT Office Visit Neurology [facility] [address] [place] [address] Brooke Carty PA-C [address] [place] [address] Scheduled Procedures Name Priority Associated Diagnoses Date/Ti [...] this encounter Medical Devices Implanted Type Area C++ Professor Device Identifier Shelf Expiration Date Model / Serial / Lot Sureclip 16mm 235cm - [id number] Implanted:Qty: 1 on 09/22/2021 by Thomas Boone MD at ENDOSCOPY [facility] Colon MICRO TECH ENDOSCOPY 09/02/2023 [id number] / / [id number] documented as of this encounter Care Teams Flatwork Catcher Relationship Specialty Start Date End Date Wendy Cui MD [address] [address] PCP - General Internal Medicine 08/14/16 documented as of this encounter
--- OUTSIDE RECORDS SUMMARY | 2023-05-31 15:43 | External Medical Summary | Summary of Care ---
Author Name Unknown Organization [facility] Address [address] [place] [address] Phone [phone] Care Team Providers Care Charging Car Operator Name Role Phone Wendy Cui MD [facility] Care Provider Reason for Visit * Reason Onset Date Comments Confusion 04/19/2023 Encounter Details Date Type Department Care Team (Late st Contact Info) Description 04/19/2023 Telephone Infectious Disease, [place] [address], [place] [id number] José Mccullough, [address] [place] [address] Confusion Allergies Active Allergy Reactions Criticality Noted Date Comments Penicillins Rash 03/17/2016 documented as of this encounter (statuses as of 04/19/2023) Medications Medication Sig Dispensed Refills Start Date [...] Tablet Sublingual (Nitrostat)Indication s:Coronary artery disease involving [place] coronary artery of [place] heart without angina pectoris PLACE 1 [...] as of this encounter (statuses as of 04/19/2023) Active Problems Problem Noted Date Diagnosed Date Depressive disorder 11/16/2021 Essential hypertension with goal blood pressure less than 130/80 12/25/2018 Dyslipidemia, goal LDL below 70 12/16/2018 History of tobacco use 12/16/2018 Coronary artery disease invo lving [place] coronary artery of [place] heart without angina pectoris 04/18/2018 S/P angioplasty with stent 04/18/2018 Chronic diarrhea 08/14/2016 HIV (human immunodeficiency virus infection) documented as of this encounter (statuses as of 04/19/2023) Social History Tobacco Use Types Packs/Day Years [...] 12:40 PM EST [facility] [place] [facility] [place] [address] [facility] [address] [facility] [address] 08/10/2023 2:00 PM EDT Office Visit Neurology Letty Estrada [place] [address] [place] [address] Brooke Carty PA-C [address] [facility] [place] [address] Scheduled Procedures Name Priority Associated Diagnoses Date/Ti [...] this encounter Medical Devices Implanted Type Area Assortment Planner Device Identifier Shelf Expiration Date Model / Serial / Lot Sureclip 16mm 235cm - [id number] Implanted:Qty: 1 on 09/22/2021 by Thomas Boone MD at ENDOSCOPY [facility] Colon MICRO TECH ENDOSCOPY 09/02/2023 [id number] / / [id number] documented as of this encounter Care Teams Charging Car Operator Relationship Specialty Start Date End Date Wendy Cui MD [address] [place] [address] PCP - General Internal Medicine 08/14/16 documented as of this encounter
--- OUTSIDE RECORDS SUMMARY | 2023-05-31 15:43 | External Medical Summary | Summary of Care ---
Author Name Unknown Organization [facility] Address [address] [place] [address] Phone [phone] Care Team Providers Care Twisting Frame Changer Name Role Phone Wendy Cui MD [facility] Care Provider Reason for Visit * Reason Onset Date Comments Confusion 04/19/2023 Encounter Details Date Type Department Care Team (Late st Contact Info) Description 04/19/2023 Telephone Infectious Disease, [place] [address] [place], [place] [id number] José Mccullough, [address] [place] [address] Confusion Allergies Active Allergy Reactions Criticality Noted Date Comments Penicillins Rash 03/17/2016 documented as of this encounter (statuses as of 04/20/2023) Medications Medication Sig Dispensed Refills Start Date [...] Tablet Sublingual (Nitrostat)Indication s:Coronary artery disease involving [place] coronary artery of [place] heart without angina pectoris PLACE 1 TABLET [...] as of this encounter (statuses as of 04/20/2023) Active Problems Problem Noted Date Diagnosed Date Depressive disorder 11/16/2021 Essential hypertension with goal blood pressure less than 130/80 12/25/2018 Dyslipidemia, goal LDL below 70 12/16/2018 History of tobacco use 12/16/2018 Coronary artery disease invo lving [place] coronary artery of [place] heart without angina pectoris 04/18/2018 S/P angioplasty with stent 04/18/2018 Chronic diarrhea 08/14/2016 HIV (human immunodeficiency virus infection) documented as of this encounter (statuses as of 04/20/2023) Social History Tobacco Use Types Packs/Day Years [...] 12:40 PM EST Office Visit Infectious Disease [facility] [address] [place] [address] Gil Weston MD [address] [place] [address] 08/10/2023 2:00 PM EDT Office Visit Neurology [facility] [address] [place] [address] Brooke Carty PA-C [address] [facility] [place] [address] Scheduled Procedures Name Priority Associated Diagnoses Date/Ti [...] this encounter Medical Devices Implanted Type Area First Coat Operator Device Identifier Shelf Expiration Date Model / Serial / Lot Sureclip 16mm 235cm - [id number] Implanted:Qty: 1 on 09/22/2021 by Thomas Boone MD at ENDOSCOPY [facility] Colon MICRO TECH ENDOSCOPY 09/02/2023 [id number] / / [id number] documented as of this encounter Care Teams Twisting Frame Changer Relationship Specialty Start Date End Date Wendy Cui MD [address] [address] PCP - General Internal Medicine 08/14/16 documented as of this encounter
--- OUTSIDE RECORDS SUMMARY | 2023-05-31 15:43 | External Medical Summary | Summary of Care ---
Author Name Unknown Organization [facility] Address [address] [place] [address] Phone [phone] Care Team Providers Care Manager Ship Name Role Phone Wendy Cui MD [facility] Care Provider Reason for Visit * Reason Onset Date Comments Status Check 04/11/2023 Encounter Details Date Type Department Care Team (Late st Contact Info) Description 04/11/2023 Telephone [facility] Infectious Disease [address] [place] [address] José Mccullough, DO [address] [place] [address] Status Check Allergies Active Allergy [...] Tablet Sublingual (Nitrostat)Indication s:Coronary artery disease involving [place] coronary artery of [place] heart without angina pectoris PLACE 1 TABLET [...] use 12/16/2018 Coronary artery disease invo lving [place] coronary artery of [place] heart without angina pectoris 04/18/2018 S/P angioplasty [...] encounter Miscellaneous Notes * Telephone Encounter - Jesus Pan OSA [...] 04/12/2023 1:30 PM EST Office Visit Cardiology, [facility] [address] [place] [address] Sami Baeuchamp DO [address] [place] [address] 06/20/2023 12:40 PM EST Office Visit Infectious Disease [facility] [address] [place] [address] Gil Weston MD [address] [place] [address] 08/10/2023 2:00 PM EDT Office Visit Neurology [facility] [address] [place] [address] Brooke Carty PA-C [address] [place] [address] Scheduled Procedures Name Priority Associated Diagnoses Date/Ti [...] this encounter Medical Devices Implanted Type Area Refresh Technician Device Identifier Shelf Expiration Date Model / Serial / Lot Sureclip 16mm 235cm - [id number] Implanted:Qty: 1 on 09/22/2021 by Thomas Boone MD at ENDOSCOPY [facility] Colon MICRO TECH ENDOSCOPY 09/02/2023 [id number] / / [id number] documented as of this encounter Care Teams Manager Ship Relationship Specialty Start Date End Date Wnedy Cui MD [address] [address] PCP - General Internal Medicine 08/14/16 documented as of this encounter
--- NOTE | 2023-05-31 20:04 | Orthopedic Consultation ---
Date of Consultation May 31, 2023 Assessment & Plan (1) Fracture of phalanx of left foot, closed: Patient seen and evaluated in room N383-1 Reviewed previous films and recent x-rays which note additional acute injury. No intervention planned at this time. Patient to utilize rigid sole surgical shoe to left foot. Patient is weight bearing as tolerated with out restrictions. (2) Abrasion of toe, left: (3) Abrasion of toe, right: History of Present Illness Attending Physician: Shukri Gutierrez MD History of Present Illness Patient is a 59-year-old male seen at bedside for left foot fracture. Patient unable to answer basic questions about hisotry and does appear pleasantly demented. History obtained from prior documentation. Patient has a past medical history significant for syphilis, HIV on HAART, hypertension, type 2 diabetes, polyneuropathy anxiety depression. Patient was brought to [facility] ED this morning after he was found wandering around his apartment area. Previous documentation states he was found down, suggesting he fell and presented with multiple abrasions on the toes and on his face. Patient has a previous history of left foot second, fourth, and fifth proximal phalanx base fractures noted on x-ray exam 02/14/23. Films taken today show fractures noted from 02/14/23 which have progressed with collapse of the phalanx bases. Abrasions over the foot at these area suggest recent acute injury. Upon arrival at the emergency department, he was hypothermic, temperature was 34.4 he was placed on Dafne hugger. Allergies Allergy/AdvReac Type Severity Reaction Status Date / Time Penicillins Allergy Mild RASH Verified 03/07/23 14:28 metformin AdvReac Intermediate Diarrhea Verified 03/07/23 14:28 Home Medications Medication Instructions Recorded Confirmed Type aspirin 81 mg tablet,delayed 81 mg PO HS #30 tabs 12/19/18 05/31/23 History release cholecalciferol (vitamin D3) 125 5,000 units PO QAM 12/19/18 05/31/23 History mcg (5,000 unit) tablet nitroglycerin 0.4 mg sublingual 0.4 mg sublingual Q5M PRN chest 12/19/18 05/31/23 History tablet pain #30 tabs vit A 7,160 unit-vit C 113 mg-vit 1 tab PO PM 02/15/21 05/31/23 History E 100 [id number] tablet ibuprofen 200 mg capsule 400 mg (2 x 200 mg) PO Q8H PRN 05/29/21 05/31/23 Rx pain #30 caps venlafaxine 225 mg tablet,extended 225 mg PO QAM #90 tabs 09/12/21 05/31/23 Rx release 24 hr bictegravir 50 mg-emtricitabine 1 tab PO DAILY 12/20/21 05/31/23 History 200 mg-tenofovir alafenam 25 mg tablet (Biktarvy) OneTouch Ultra2 Meter #1 ea 06/07/22 02/13/23 Rx (blood-glucose meter) OneTouch UltraSoft Lancets #200 ea 06/07/22 02/13/23 Rx (lancets) blood sugar diagnostic (OneTouch #200 ea 06/07/22 02/13/23 Rx Ultra Test strips) metoprolol succinate 50 mg 50 mg PO QAM #90 tabs 08/14/22 05/31/23 Rx tablet,extended release 24 hr atorvastatin 40 mg tablet 40 mg PO HS #84 tabs 10/05/22 05/31/23 Rx ezetimibe 10 mg tablet (Zetia) 10 mg PO HS #84 tabs 10/05/22 05/31/23 Rx oxybutynin chloride 5 mg 5 mg PO QAM #84 tabs 10/05/22 05/31/23 Rx tablet,extended release 24 hr pantoprazole 40 mg tablet,delayed 40 mg PO QAM #84 tabs 10/05/22 05/31/23 Rx release isosorbide mononitrate 30 mg 90 mg (3 x 30 mg) PO QAM #90 tabs 11/06/22 05/31/23 Rx tablet,extended release 24 hr glipizide 10 mg tablet 10 mg PO BID #180 tabs 12/13/22 05/31/23 Rx cyanocobalamin (vitamin B-12) 1,000 mcg PO QAM #30 tabs 01/23/23 05/31/23 Rx 1,000 mcg tablet (Vitamin B-12) empagliflozin 25 mg tablet 25 mg PO QAM #30 tabs 01/30/23 05/31/23 Rx (Jardiance) gabapentin 800 mg tablet 800 mg PO TID #84 tabs 01/30/23 05/31/23 Rx lisinopril 2.5 mg tablet 2.5 mg PO QAM 02/12/23 05/31/23 History food supplemt, lactose-reduced 1 ea PO DAILY #7,110 mL 03/30/23 05/31/23 Rx (Ensure Original oral liquid) aripiprazole 2 mg tablet 2 mg PO HS 05/31/23 05/31/23 History bupropion HCl 150 mg 24 hr tablet, 150 mg PO QAM 05/31/23 05/31/23 History extended release bupropion HCl 300 mg 24 hr tablet, 300 mg PO QAM 05/31/23 05/31/23 History extended release Patient History Medical History Delirium Ambulatory dysfunction Terrance Bonnet syndrome Exposure to COVID-19 virus Abdominal pain, acute, right lower quadrant Acute appendicitis Sensorineural hearing loss of both ears Mixed conductive and sensorineural hearing loss of left ear with restricted hearing of right ear Cleft palate Cleft lip Deep vein thrombosis Fall 2015 Left Leg with unknown reasoning. Osteoarthritis Basal cell carcinoma Spinal stenosis Macular degeneration Lumbosacral radiculopathy Idiopathic polyneuropathy Hypertension Hyperlipidemia Hearing loss Gastroesophageal reflux disease Depression Degenerative disc disease, lumbar Coronary artery disease Colon polyps Heart attack 2016 & November 2017 Injury of left shoulder Acute myocardial infarction Surgical History History of laparoscopic appendectomy (05/28/21) Laparoscopic Appendectomy - David Huffman MD, FACS 05/28/2021 History of cleft lip cleft lip repair only. History of colonoscopy History of esophagogastroduodenoscopy (EGD) History of carpal tunnel release bilateral History of laminectomy Hx of local excision of skin lesion from Left eyelid History of heart artery stent total of 3-4 stents. 1-2 stent in 2017 ([facility]), 1 stent in Nov 2017 ([facility]), 1 stent Nov 2018 ([facility]) drug eluting stent placed. History of cardiac catheterization History of placement of ear tubes "History of ear pressure equalization tube insertion" History of tonsillectomy and adenoidectomy History of sinus surgery History of rotator cuff surgery left Family History Mother Cancer Cardiac disorder Colorectal cancer Father Cardiac disorder Myocardial infarction Brother Diabetes Grandmother (Maternal) Diabetes Denies family history of No pertinent family history Ovarian cancer Prostate cancer Breast cancer Social History Smoking Status: Current every day smoker Tobacco Type: Cigarettes Cigarettes Per Day: 20; Second Hand Exposure: No; Do You Dip or Chew Tobacco: No; Hx Alcohol Use: Yes Alcohol type: beer Hx Substance Use: Yes Last Used Substance: Hours (ago) Preferred Language: Bangladeshi Communication Ability: Effective Visual Impairment: No Limitations Hearing Ability: Hard of Hearing Compensation Manager Required: No Beliefs That Will Affect Care: None marital status: Single Current Living Situation: Alone current occupational status: retired current occupation: Retired Feels Safe at Home: Yes Childhood Exposure to Second-Hand Smoke: No Seatbelt Use: always Do you think of yourself as: lesbian/ulrich/homosexual Assistive Devices: None Review of Systems Review of Systems: All systems reviewed & are unremarkable except as noted in HPI & below Physical Exam Constitutional: cooperative and comfortable Eyes: normal visual alexis by confrontation Neck: normal visual inspection Respiratory: normal respiratory effort Cardiovascular: Rate/Rhythm: regular rate and regular rhythm Vessels: posterior tibial pulses present and dorsalis pedis pulses present Musculoskeletal: Extremities: extremities normal to inspection Skin: Partial thickness abrasions to the dorsal lesser toes of the left foot Neurologic: moves all extremities Results & Data Vital Signs (Past 12 Hours) Vital Signs Temp Pulse Pulse Resp BP BP Pulse Ox 05/31/23 15:29 36.7 C 83 16 107/61 96 05/31/23 10:33 05/31/23 10:26 05/31/23 10:26 36.5 C 80 18 114/72 96 05/31/23 10:26 36.5 C 80 16 114/72 96 05/31/23 09:34 36.4 C L 05/31/23 09:30 80 20 125/75 96 05/31/23 09:05 36.3 C L 05/31/23 09:00 82 21 128/77 94 05/31/23 08:41 36.5 C 05/31/23 08:35 36.1 C L 05/31/23 08:30 78 18 111/70 96 05/31/23 08:09 36.0 C L O2 Del Method 05/31/23 15:29 Room Air 05/31/23 10:33 Room Air 05/31/23 10:26 Room Air 05/31/23 10:26 Room Air 05/31/23 10:26 Room Air 05/31/23 09:34 05/31/23 09:30 Room Air 05/31/23 09:05 05/31/23 09:00 Room Air 05/31/23 08:41 05/31/23 08:35 05/31/23 08:30 Room Air 05/31/23 08:09 Diagnostic Findings [facility] [place] [phone] XRay Report Patient: CAL STINSON Admit Date: 05/31/23 MR#: [id number] Address1: [address] Acct ID:[id number] Address2: [facility] [address] Date: 1955 [facility] Zip: [place] [address] Age: 67 Location: ED Sex: M Room/Bed: Att Phy: Diagnosis: FOUND OUTSIDE, DEMENTIA Fatoumata Phy: RV. Pablo MD Service Date: 05/31/23 Fam Phy: Interpreting Phy: Isaac Alexander MDAdmit Phy: Ordering Phy: Gianluca Maier MD cc: ~ XR foot LT min 3V routine, XR foot RT min 3V routine CLINICAL HISTORY: fall, abrasions to toes. Bilateral foot pain. COMPARISON STUDY: Bilateral feet 02/13/2023. FINDINGS: Mildly impacted fractures at the bases of the left second, fourth, and fifth proximal phalanges with likely intra-articular extension. These are at the similar location to the 02/13/2023 examination but appear to be acute fractures. No additional fractures within the left foot. No acute fractures within the right foot. Vascular calcifications are noted. The Lisfranc joints are intact. IMPRESSION: 1. Mildly impacted fractures at the bases of the left second, fourth, and fifth proximal phalanges with likely intra-articular extension. These are at the similar location to the 02/13/2023 examination but appear to be acute fractures. 2. No acute fractures within the right foot. ACT 112: Negative or not required by law. Electronically signed by: Isaac Alexander M.D. 05/31/2023 7:47 AM Dictated: 05/31/23735 Transcribed: 05/31/23735 (1) Fracture of phalanx of left foot, closed Encounter type: initial encounter Toe: lesser toe Phalanx: proximal Fracture alignment: displaced Qualified Code(s): S92.512A - Displaced fracture of proximal phalanx of left lesser toe(s), initial encounter for closed fracture
[2023-05-31] MEDS: ASPIRIN 81 MG ECTAB PO SCH (20:38)
[2023-05-31] MEDS: EZETIMIBE 10 MG TAB PO SCH (20:38)
[2023-05-31] MEDS: ATORVASTATIN 40 MG TAB PO SCH (20:38)
[2023-06-01 07:35] LABS: Hematocrit (blood only) 33.8 % (42.0-52.0); Hemoglobin 11.4 g/dl (14.0-18.0); Mean Corpuscular Hemoglobin 33.6 pg (25.0-34.0); Mean Corpuscular Hgb Conc 33.7 g/dL (32.0-36.0); Mean Corpuscular Volume 99.7 fL (80.0-100.0); Mean Platelet Volume 9.5 fL (9.4-12.4); Platelet Count 131 K/uL (130-400); RDW Standard Deviation 47.6 fL (36.4-46.3); Red Blood Count 3.39 M/uL (4.70-6.10); White Blood Count 6.34 K/ul (4.8-10.8)
[2023-06-01] MEDS: CARBOHYDRATES FOR HYPOGLYCEMIA PO PRN (07:35)
[2023-06-01 07:36] LABS: BUN Creatinine Ratio 18.8 (10-20); Calcium 8.5 mg/dl (8.6-10.3); Creatinine Clr Calc Pharmacy 70.3 ml/min; Est GFR (African American) 87.6 ml/min; Est GFR (Non-African American) 75.5 ml/min; Potassium 3.7 mmol/L (3.5-5.1)
--- NOTE | 2023-06-01 09:21 | Psychiatric Progress Note ---
Date of Service June 01, 2023 Impression / Recommendations Impression 06/01/2023: Not much change from a psychiatric perspective. Pt remains very confused, disoriented, and confabulates copiously. He retains only the most vague awareness of why he's in the hospital (for example, is surprised when I point out the boot on his left foot and wonders why it's there). I'm unable to elicit any evidence of visual hallucinations (he essentially ignores my questions about this) but nursing notes clearly reflect visual hallucinosis. He has no antipsychotic medication ordered so, accordingly, has been given none. 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 He also has poor hearing and polyneuropathy and frequent falls which are likely related to the aforementioned sensory issues. He is followed on an outpatient basis by psychiatry but at present we don't have a recent medication list. A note from February 2023 that is copied into his chart here reflects that aripiprazole was going to be started. At present he is delirious and has no idea why he's here. The delirium is sufficiently pronounced that I can't really assess any other potential issues including any possible underlying cognitive impairment. The delirium is likely multifactorial, but a likely primary contributor is his recent hypothermia and rhabdomyolysis However, irrespective of any possible cognitive issues, pt's poor vision, frequent convincing visual hallucinations, poor hearing, and frequent falls suggest that his ability to manage safely in a 4th floor apartment has reached its end. (1) Delirium: (2) Terrance Bonnet syndrome: (3) Depression: Plan He does not currently have capacity to make medical decisions, so substituted judgment will need to be obtained from next of kin. He may well have a durable power of united states attorney for healthcare (possibly his niece or brother?), which if true would be helpful. * it seems doubtful that pt can continue to live alone, if only because of his visual and hearing impairments combined with his polyneuropathy that leads to frequent falls; he (or his [id number] or other proxy) will need seriously to consider a higher level of care and I recommend that discharge plans be made with this in mind (which means that Combiner Operator should include this in their discharge plans and not plan for him to return home) * I continue to recommend a trial of quetiapine 25 mg PO Q6H PRN psychosis; frequency and timing of PRN administrations could help with assessing the need for scheduled medication and, if needed, how to schedule it * continue venlafaxine XR 225 mg daily Inventory Assets Strengths: supportive relationships, has local supports (brother, [id number], niece, intelligent Needs: safety and stabilization Suicide Risk Level Suicide Risk Level: Low (q15 min observation checks) (has voiced no suicidal thoughts, but is unaware of circumstances so may act unpredictably) Risk Factors Assessment Male: Yes : Yes Do You Have Access To A Gun?: No Health Problems: Yes Mental Health Diagnoses: Yes Substance Use Disorders: Yes (cannabis) Previous Attempt: No Family History of Suicide: No Previous Psychiatric Hospitalization: No Hopelessness: No Protective Factors Assessment : No Responsible for Young Children: No Employed: No (retired) Supportive Family: Yes Good Rapport with Provider: Yes Interval History Identifying Information CAL STINSON is a 67-year-old M with a history of depression and Terrance Bonnet Syndrome, admitted on 05/31/2023 for rhabdomyolysis. Consult is by the hospitalist service for "psych eval and follow up". Chief Complaint "Hey, do you know where everybody went?". Subjective Subjective The patient was seen and assessed and interval progress reviewed in a multidisciplinary team meeting with the treatment team and psychiatric liaison nursing and social work. For details, see the "Impression" section. Overall I spent a total of 36 minutes for this consultation follow-up including review of chart records, review of test results, direct evaluation of the patient [id number], risk assessment, discussion during interdisciplinary treatment rounds and with the psychiatric liaison nurse, and documentation in the electronic health record. Physical Exam Psychiatric Orientation: oriented to person and cooperative; + not alert (level of arousal fluctuates over the course of the exam), + not oriented to place (inconsistently recognizes he's "in [facility]") and + not oriented to time Apperance: appropriately dressed and + disheveled Eye Contact: + fair eye contact (variable) Speech: normal rate/rhythm/volume of speech Affect: euthymic affect Mood: no depressed mood, no anxious mood, no irritable mood and no angry mood Thought Process: + confabulations; + thought process not clear or coherent Suicidal Thoughts: + reports suicidal thoughts Homicidal Thoughts: + reports homicidal thoughts Hallucinations: + visual hallucinations Cognition: remote memory grossly intact; + recent memory not intact and + attention not intact Estimated Intelligence: consistent with education level Insight: + severely impaired insight Judgment: + impaired judgement Vital Signs (Past 24 Hours) Last Vital Signs Temp 36.4 C L 06/01/23 07:38 Pulse 68 06/01/23 07:38 Resp 16 06/01/23 07:38 BP 120/70 06/01/23 07:38 Pulse Ox 97 06/01/23 07:38 O2 Del Method Room Air 06/01/23 07:38 Results & Data ([facility]) Laboratory Results Laboratory Results - last 24 hr 05/31/23 05/31/23 05/31/23 11:37 16:38 20:30 WBC RBC Hgb Hct MCV MCH MCHC RDW Std Deviation RDW Coeff of Zunilda Plt Count MPV Sodium Potassium Chloride Carbon Dioxide Anion Gap BUN Creatinine Est Cr Clr Drug Dosing Est GFR ( Amer) Est GFR (Non-Af Amer) BUN/Creatinine Ratio Glucose POC Glucose 73 97 74 Calcium 06/01/23 06/01/23 06/01/23 06:33 07:34 07:49 WBC 6.34 RBC 3.39 L Hgb 11.4 L D Hct 33.8 L MCV 99.7 MCH 33.6 MCHC 33.7 RDW Std Deviation 47.6 H RDW Coeff of Zunilda 13.0 Plt Count 131 MPV 9.5 Sodium 139 Potassium 3.7 Chloride 109 H Carbon Dioxide 24 Anion Gap 6 BUN 19 Creatinine 1.01 Est Cr Clr Drug Dosing 70.3 Est GFR ( Amer) 87.6 Est GFR (Non-Af Amer) 75.5 BUN/Creatinine Ratio 18.8 Glucose 67 L POC Glucose 68 L* 80 Calcium 8.5 L Current Inpatient Medications Current Inpatient Medications: Current Inpatient Medications Acetaminophen (Acetaminophen 325 Mg Tab) 650 mg PO Q4H PRN PRN Reason: pain/fever Stop: 06/30/23 10:32 Last Admin: 05/31/23 20:38 Dose: 650 mg Aspirin (Aspirin 81 Mg Ectab) 81 mg PO [facility] Stop: 06/30/23 20:59 Last Admin: 05/31/23 20:38 Dose: 81 mg Atorvastatin Calcium (Atorvastatin 40 Mg Tab) 40 mg PO [facility] Stop: 06/30/23 20:59 Last Admin: 05/31/23 20:38 Dose: 40 mg Cyanocobalamin (Cyanocobalamin (B-12) 500 Mcg Tablet) 1,000 mcg PO QAM [facility] Stop: 06/30/23 10:59 Last Admin: 06/01/23 07:46 Dose: 1,000 mcg Dextrose (Dextrose 50% 50 Ml Syringe) 25 - 50 ml IV UD PRN; Protocol PRN Reason: Hypoglycemia Protocol Stop: 06/30/23 10:59 Ezetimibe (Ezetimibe 10 Mg Tab) 10 mg PO [facility] Stop: 06/30/23 20:59 Last Admin: 05/31/23 20:38 Dose: 10 mg Empagliflozin (Empagliflozin 25 Mg Tab) [facility] [place] [facility] [place]: 06/30/23 10:32 Last Admin: 06/01/23 07:47 Dose: 25 mg Gabapentin (Gabapentin 800 Mg Tab) 800 mg PO TID [facility] Stop: 06/30/23 10:32 Last Admin: 06/01/23 07:46 Dose: 800 mg Glucagon (Glucagon For Inj 1 Mg Vial) 1 mg IM UD PRN; Protocol PRN Reason: Hypoglycemia Protocol Stop: 06/30/23 10:59 Glucose (Glucose 40% Gel 15 Gm Tube) 15 - 30 gm PO UD PRN; Protocol PRN Reason: Hypoglycemia Protocol Stop: 06/30/23 10:59 Glucose (Glucose 10 Tab/Tube) 4 - 8 tab PO UD PRN; Protocol PRN Reason: Hypoglycemia Protocol Stop: 06/30/23 10:59 Sodium Chloride (Nss) 1,000 mls @ 125 mls/hr IV .Q8H [facility] Stop: 06/30/23 06:59 Last Admin: 06/01/23 06:20 Dose: 125 mls/hr Insulin Aspart (Insulin Aspart Per Unit Charge) 0 units SC ACHS [facility] Stop: 06/30/23 11:29 Last Admin: 06/01/23 09:03 Dose: Not Given Isosorbide Mononitrate (Isosorbide [place] Extended Rel 30 Mg Tabcr) 90 mg PO QAM [facility] Stop: 06/30/23 10:32 Last Admin: 06/01/23 07:47 Dose: 90 mg Lisinopril (Lisinopril 2.5 Mg Tab) 2.5 mg PO DAILY [facility] Stop: 06/30/23 10:32 Last Admin: 06/01/23 07:47 Dose: 2.5 mg Metoprolol Succinate (Metoprolol Succ 50mg Ext Rel Tab) 50 mg PO QAM [facility] Stop: 06/30/23 10:32 Last Admin: 06/01/23 07:47 Dose: 50 mg Miscellaneous (Biktarvy ~ Order Awaiting Action) 1 each N/A QS [facility] Stop: 06/30/23 10:59 Last Admin: 06/01/23 07:48 Dose: Not Given Miscellaneous (Carbohydrates For Hypoglycemia ) 15 - 30 gm PO UD PRN PRN Reason: Hypoglycemia Treatment Stop: 06/30/23 10:59 Last Admin: 06/01/23 07:35 Dose: 15 gm Ondansetron HCl (Ondansetron Inj 2 Mg/Ml 2 Ml Vial) 4 mg IV Q6H PRN PRN Reason: Nausea Stop: 06/30/23 10:32 Oxybutynin Chloride (Oxybutynin Chloride Xl 5 Mg Tabcr) 5 mg PO [facility] Stop: 06/30/23 10:32 Last Admin: 06/01/23 07:47 Dose: 5 mg Pantoprazole Sodium (Pantoprazole 40 Mg Tab) 40 mg PO [facility] Stop: 06/30/23 10:32 Last Admin: 06/01/23 07:47 Dose: 40 mg Venlafaxine HCl (Venlafaxine Hcl Xr 75 Mg Capxr) 225 mg PO [facility] Stop: 06/30/23 10:32 Last Admin: 06/01/23 07:47 Dose: 225 mg Vitamin D (Cholecalciferol 125 Mcg (5,000 Units) Tab) 125 mcg [facility] [place] [facility] [place]: 06/30/23 10:32 Last Admin: 06/01/23 07:46 Dose: 125 mcg
--- NOTE | 2023-06-01 10:46 | Hospitalist Progress Note ---
Date of Service June 01, 2023 Assessment & Plan (1) Rhabdomyolysis: Plan: Found to have mild rhabdomyolysis, probably from fall and being on the floor for some time -Started on aggressive IV fluids Recheck CPK (2) Fall: Plan: Patient lives alone, and is fallen a few times in the past Consult physical therapy He will need placement (3) Fracture of phalanx of left foot, closed: Plan: Left foot fracture, present during the last admission Was followed by podiatry Dr. Singleton Will consult him (4) HIV disease: Plan: Continue HAART (5) Type 2 diabetes mellitus: Plan: On glipizide and Invokana at home Will institute insulin sliding scale Blood glucose under fair control. 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 He is also unable to take care of himself at home given his frequent falls, poor vision hallucination and peripheral neuropathy. Patient will need placement Plan Patient will need DURABLE POWER OF COMPOUND FINISHER and substituted judgment, he is unable to make his own decisions. He will need placement. Admission and Anticipated Discharge Date Admission Date: May 31, 2023 Subjective Patient seen and examined today, he was asking when he will be going home. He denies any new complaints. Review of Systems Review of Systems: All systems reviewed are negative, apart from the ones contained in the history. Physical Exam Physical Exam: The patient is awake, alert occasionally confused HEENT--PERRL, EOMI, mucous membranes and oropharynx mildly dry Neck--supple. No JVD. No bruits. Thyroid normal, trachea midline, no adenopathy. Heart--normal S1 and S2. No murmurs, rubs or gallops. Lungs--clear bilaterally, no respiratory distress, no accessory muscle use. Abdomen--normal bowel sounds and soft. Mild epigastric and left sided abdominal pain Extremities--no cyanosis or clubbing. No edema. Dermatologic--normal skin turgor, normal color, no abnormal lymph nodes, no rash. Neurologic--cranial nerves II through XII grossly intact. Rheumatologic--normal range of motion. Psychiatric--normal affect. Results & Data Results & Data Vital Signs (Past 12 Hours) Vital Signs Temp Pulse Resp BP Pulse Ox O2 Del Method 06/01/23 07:38 97.5 F L 68 16 120/70 97 Room Air PG Care Time/CCT Total # of Minutes Spent Total Time Spent with Patient: Total time spent is greater than 50% in coordination of care (as documented) at patient's floor/unit and/or counseling patient: Coding Level of Care Code 93374 SUB INP/OBS CARE 2/35MIN Diagnoses Rhabdomyolysis M62.82 Fall W19.XXXA Closed displaced fracture of proximal phalanx of lesser toe of left foot, initial encounter S92.512A Encounter type: initial encounter Toe: lesser toe Phalanx: proximal Fracture alignment: displaced HIV disease B20 Type 2 diabetes mellitus E11.9 Terrance Bonnet syndrome H53.16 Time Spent (min) 35 (3) Fracture of phalanx of left foot, closed Encounter type: initial encounter Toe: lesser toe Phalanx: proximal Fracture alignment: displaced Qualified Code(s): S92.512A - Displaced fracture of proximal phalanx of left lesser toe(s), initial encounter for closed fracture
[2023-06-01] MEDS: BIKTARVY 50-200-25MG TABLET PO SCH (20:26)
[2023-06-01] MEDS: MELATONIN 3 MG TAB PO PRN (23:07)
--- NOTE | 2023-06-02 09:42 | Hospitalist Progress Note ---
Date of Service June 02, 2023 Assessment & Plan (1) Rhabdomyolysis: Plan: Found to have mild rhabdomyolysis, probably from fall and being on the floor for some time Treated with aggressive IV fluids Now resolved (2) Fall: Plan: Patient lives alone, and is fallen a few times in the past Continue physical therapy He will need placement (3) Fracture of phalanx of left foot, closed: Plan: Left foot fracture, present during the last admission Was followed by podiatry Dr. Singleton No surgical needs for now, continue conservative management (4) HIV disease: Plan: Continue HAART (5) Type 2 diabetes mellitus: Plan: On glipizide and Invokana at home Will institute insulin sliding scale Blood glucose under fair control. 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 He is also unable to take care of himself at home given his frequent falls, poor vision hallucination and peripheral neuropathy. Patient will need placement Plan Patient will need DURABLE POWER OF RIVET MACHINE OPERATOR and substituted judgment, he is unable to make his own decisions. He will need placement. Admission and Anticipated Discharge Date Admission Date: May 31, 2023 Subjective Patient seen and examined today, no new complaints today, tolerating diet sitting up in the chair Review of Systems Review of Systems: All systems reviewed are negative, apart from the ones contained in the history. Physical Exam Physical Exam: The patient is awake, alert occasionally confused HEENT--PERRL, EOMI, mucous membranes and oropharynx mildly dry Neck--supple. No JVD. No bruits. Thyroid normal, trachea midline, no adenopathy. Heart--normal S1 and S2. No murmurs, rubs or gallops. Lungs--clear bilaterally, no respiratory distress, no accessory muscle use. Abdomen--normal bowel sounds and soft. Extremities--no cyanosis or clubbing. No edema. Dermatologic--normal skin turgor, normal color, no abnormal lymph nodes, no rash. Neurologic--cranial nerves II through XII grossly intact. Rheumatologic--normal range of motion. Psychiatric--normal affect. Results & Data Results & Data Vital Signs (Past 12 Hours) Vital Signs Temp Pulse Resp BP Pulse Ox O2 Del Method 06/02/23 07:41 97.5 F L 61 16 114/67 97 Room Air PG Care Time/CCT Total # of Minutes Spent Total Time Spent with Patient: Total time spent is greater than 50% in coordination of care (as documented) at patient's floor/unit and/or counseling patient: Coding Level of Care Code 64375 SUB INP/OBS CARE 2/35MIN Diagnoses Rhabdomyolysis M62.82 Fall W19.XXXA Closed displaced fracture of proximal phalanx of lesser toe of left foot, initial encounter S92.512A Encounter type: initial encounter Toe: lesser toe Phalanx: proximal Fracture alignment: displaced HIV disease B20 Type 2 diabetes mellitus E11.9 Terrance Bonnet syndrome H53.16 Time Spent (min) 35 (3) Fracture of phalanx of left foot, closed Encounter type: initial encounter Toe: lesser toe Phalanx: proximal Fracture alignment: displaced Qualified Code(s): S92.512A - Displaced fracture of proximal phalanx of left lesser toe(s), initial encounter for closed fracture
[2023-06-03 06:13] LABS: Hemoglobin 13.1 g/dl (14.0-18.0); Mean Corpuscular Hemoglobin 33.9 pg (25.0-34.0); Mean Corpuscular Hgb Conc 34.5 g/dL (32.0-36.0); Mean Corpuscular Volume 98.4 fL (80.0-100.0); Mean Platelet Volume 9.7 fL (9.4-12.4); Platelet Count 155 K/uL (130-400); RDW Coefficient of Variation 12.9 % (11.5-14.5); RDW Standard Deviation 45.9 fL (36.4-46.3); Red Blood Count 3.86 M/uL (4.70-6.10); White Blood Count 5.43 K/ul (4.8-10.8)
[2023-06-03 06:26] LABS: BUN Creatinine Ratio 18.8 (10-20); Calcium 9.2 mg/dl (8.6-10.3); Est GFR (African American) 93.1 ml/min; Est GFR (Non-African American) 80.3 ml/min; Potassium 4.2 mmol/L (3.5-5.1)
--- NOTE | 2023-06-03 10:03 | Hospitalist Progress Note ---
Date of Service June 03, 2023 Assessment & Plan (1) Rhabdomyolysis: Plan: Found to have mild rhabdomyolysis, probably from fall and being on the floor for some time Treated with aggressive IV fluids Now resolved (2) Fall: Plan: Patient lives alone, and is fallen a few times in the past Continue physical therapy He will need placement, no longer able to take care of himself at home (3) Fracture of phalanx of left foot, closed: Plan: Left foot fracture, present during the last admission Was followed by podiatry Dr. Singleton No surgical needs for now, continue conservative management (4) HIV disease: Plan: Continue HAART (5) Type 2 diabetes mellitus: Plan: On glipizide and Invokana at home Will institute insulin sliding scale Blood glucose under fair control. 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 He is also unable to take care of himself at home given his frequent falls, poor vision hallucination and peripheral neuropathy. Patient will need placement Plan Patient will need DURABLE POWER OF NETWORK SECURITY ANALYST and substituted judgment, he is unable to make his own decisions. He will need placement. Admission and Anticipated Discharge Date Admission Date: May 31, 2023 Subjective Patient seen and examined today, no new complaints today, tolerating diet Review of Systems Review of Systems: All systems reviewed are negative, apart from the ones contained in the history. Physical Exam Physical Exam: The patient is awake, alert occasionally confused HEENT--PERRL, EOMI, mucous membranes and oropharynx mildly dry Neck--supple. No JVD. No bruits. Thyroid normal, trachea midline, no adenopathy. Heart--normal S1 and S2. No murmurs, rubs or gallops. Lungs--clear bilaterally, no respiratory distress, no accessory muscle use. Abdomen--normal bowel sounds and soft. Extremities--no cyanosis or clubbing. No edema. Dermatologic--normal skin turgor, normal color, no abnormal lymph nodes, no rash. Neurologic--cranial nerves II through XII grossly intact. Rheumatologic--normal range of motion. Psychiatric--normal affect. Results & Data Results & Data Vital Signs (Past 12 Hours) Vital Signs Temp Pulse Resp BP Pulse Ox O2 Del Method 06/03/23 07:13 97.9 F 65 16 102/61 98 Room Air PG Care Time/CCT Total # of Minutes Spent Total Time Spent with Patient: Total time spent is greater than 50% in coordination of care (as documented) at patient's floor/unit and/or counseling patient: Coding Level of Care Code 64877 SUB INP/OBS CARE 2/35MIN Diagnoses Rhabdomyolysis M62.82 Fall W19.XXXA Closed displaced fracture of proximal phalanx of lesser toe of left foot, initial encounter S92.512A Encounter type: initial encounter Toe: lesser toe Phalanx: proximal Fracture alignment: displaced HIV disease B20 Type 2 diabetes mellitus E11.9 Terrance Bonnet syndrome H53.16 Time Spent (min) 35 (3) Fracture of phalanx of left foot, closed Encounter type: initial encounter Toe: lesser toe Phalanx: proximal Fracture alignment: displaced Qualified Code(s): S92.512A - Displaced fracture of proximal phalanx of left lesser toe(s), initial encounter for closed fracture
--- NOTE | 2023-06-04 18:10 | Hospitalist Progress Note ---
Date of Service June 04, 2023 Assessment & Plan (1) Rhabdomyolysis: Plan: present on admission was found on the floor at his home CPK was 900s upon admission treated with IV fluids repeat a level in am to ensure it normalized (2) Fall: Plan: present at admission multiple falls and injuries at his home cont PT/OT placement is being pursued today we discussed placement - he seemed to have not known about placement as he kept asking when he was "going home" uncertain if he simply does not recall prior conversations about placement or if these discussions hadn't taken place falls - suspect due to severe neuropathy of legs check B12 and B1 levels neuropathy could be from his long-standing HIV disease vs med side effects vs diabetic neuropathy vs other uncertain if he ever was a heavy drinker in the past as etoh can cause neuropathy (3) Fracture of phalanx of left foot, closed: Plan: Left foot fractures - acute/chronic 05/31/23 x-rays - IMPRESSION: 1. Mildly impacted fractures at the bases of the left second, fourth, and fifth proximal phalanges with likely intra-articular extension. These are at the similar location to the 02/13/2023 examination but appear to be acute fractures. 2. No acute fractures within the right foot. 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 He is also unable to take care of himself at home given his frequent falls, poor vision, hallucinations and peripheral neuropathy. Patient will need placement. He has not had any visual hallucinations last few days. (7) Abnormal brain MRI: Plan: neurology note from fall 2022 references the following brain MRI -- certainly these findings could be suggestive of a dementia process -- 2nd to long-standing HIV ? other? could falls be from seizures?? 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 He will need placement. Numerous referrals have been placed by social work. next of kin - brother, who is local in [place]. also there is a niece who is involved ? Admission and Anticipated Discharge Date Admission Date: May 31, 2023 Subjective when I walked into the room he immediately said "when can I go home??" we then had a lengthy discussion about his neuropathy, his falls, episodes of confusion, etc he reports he uses THC nearly daily at home and thinks that the THC is causing his confusional episodes he does not recall the events leading up to his fall at home he confirms that from about mid-calf down to both feet he has numbness eating fair denies any headache, dyspnea, cough, chest pain, or abdominal pain he admits to visual hallucinations but he has had none in the last couple of days Review of Systems 2 Review of Systems: gen - no fevers or chills cv - no cp, no orthopnea pulm - no SAINI GI - no N/V Physical Exam 2 Physical Exam: gen - thin, NAD, no obvious hallucinations mouth - MMM, no thrush, 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 in the midline over hard palate neck - no JVD heart - RRR, s1 s2 lungs - CTA b/l abd - soft NT ND BS+; no HSM ext - trace edema b/l; pulses 2+ b/l skin - multiple optifoams in place b/l feet including several toes b/l Results & Data Results & Data Vital Signs (Past 12 Hours) Vital Signs Temp Pulse Resp BP Pulse Ox O2 Del Method 06/04/23 14:23 36.7 C 91 H 16 101/64 96 Room Air 06/04/23 07:09 36.8 C 57 L 16 97/54 L 96 Room Air Laboratory Results Laboratory Results - last 48 hr 06/03/23 06/03/23 06/03/23 07:41 11:27 16:37 POC Glucose 141 H 190 H 111 H 06/03/23 06/04/23 06/04/23 20:26 07:28 11:29 POC Glucose 116 H 131 H 190 H 06/04/23 16:30 POC Glucose 104 H PG Care Time/CCT Total # of Minutes Spent Total Time Spent with Patient: Total time spent is greater than 50% in coordination of care (as documented) at patient's floor/unit and/or counseling patient: Coding Level of Care Code 33269 SUB INP/OBS CARE 2/35MIN Diagnoses Rhabdomyolysis M62.82 Fall W19.XXXA Closed displaced fracture of proximal phalanx of lesser toe of left foot, initial encounter S92.512A Encounter type: initial encounter Fracture alignment: displaced Phalanx: proximal Toe: lesser toe HIV disease B20 Type 2 diabetes mellitus E11.9 Terrance Bonnet syndrome H53.16 Abnormal brain MRI R90.89 Coronary artery disease involving [place] coronary artery of [place] heart with angina pectoris I25.119 [place] vs. transplanted heart: [place] heart Associated angina: with unspecified angina Hypertension I10 Idiopathic polyneuropathy G60.9 (3) Fracture of phalanx of left foot, closed Encounter type: initial encounter Fracture alignment: displaced Phalanx: p roximal Toe: lesser toe Qualified Code(s): S92.512A - Displaced fracture of proximal phalanx of left lesser toe(s), initial encounter for closed fracture (8) CAD (coronary artery disease), [place] coronary artery [place] vs. transplanted heart: [place] heart Associated angina: with unspecified angina Qualified Code(s): I25.119 - Atherosclerotic heart disease of [place] coronary artery with unspecified angina pectoris
[2023-06-05 08:05] LABS: Calcium 9.3 mg/dl (8.6-10.3)
[2023-06-05 08:10] LABS: BUN Creatinine Ratio 28.1 (10-20); Est GFR (African American) 93.1 ml/min; Est GFR (Non-African American) 80.3 ml/min
[2023-06-05] MEDS: ENOXAPARIN INJ 40 MG/0.4 ML SYR SQ SCH (09:27)
[2023-06-05 09:55] LABS: Estimated Average Glucose 148 mg/dl; Hemoglobin A1C 6.8 % (4.5-5.6)
[2023-06-05 10:08] LABS: MDA negative; MDEA negative; MDMA (Ecstasy) Urine, Confirm negative; Marijuana Quant, GCMS Urine 122 ng/mL (<5)
--- NOTE | 2023-06-05 17:35 | Hospitalist Progress Note ---
Date of Service June 05, 2023 Assessment & Plan (1) Rhabdomyolysis: Plan: mild, present on admission, resolved was found on the ground outside his apartment CPK was 900s upon admission treated with IV fluids CK normalized 2/6 labs (2) Fall: Plan: present at admission multiple falls and injuries at his home cont PT/OT placement is being pursued today we discussed placement - he was amenable to moving to a more supportive situation. he acknowledges he's been doing poorly living alone past few months. falls - suspect due to severe neuropathy of legs check B12 (normal) and B1 (pending) neuropathy could be from his long-standing HIV disease vs med side effects vs diabetic neuropathy vs other uncertain if he ever was a heavy drinker in the past as etoh can cause neuropathy not painful so we will reduce gabapentin, he's amenably to trial. gabapentin 800 mg tid home dose could be contributing to falls and cognitive problems. Reduced to 300 tid and taper if tolerating. (3) Fracture of phalanx of left foot, closed: Plan: Left foot fractures - acute/chronic 05/31/23 x-rays - IMPRESSION: 1. Mildly impacted fractures at the bases of the left second, fourth, and fifth proximal phalanges with likely intra-articular extension. These are at the similar location to the 02/13/2023 examination but appear to be acute fractures. 2. No acute fractures within the right foot. seen by Dr Singleton this admission - stiff-soled shoe or surgical shoe needed only; WBAT as tolerated with that shoe 25-OH vit D level normal at 42 (4) HIV disease: Plan: Continue HAART Long-standing diagnosis Last CD4 count >500 Last HIV viral load was undetectable followed by Yeni COSBY during last visit he had a negative RPR (5) Type 2 diabetes mellitus: Plan: On glipizide and Invokana at home Both on hold He has had hypoglycemia events at home Novolog SSI Control acceptable A1c at goal 6.8% this admission (6) Terrance Bonnet syndrome: Plan: Per psychiatry eval 06/01 , he did not have capacity to make his own medical decisions and will need substituted judgment. He is also unable to take care of himself at home given his frequent falls, poor vision, hallucinations and peripheral neuropathy. Patient will need placement. He has not had any visual hallucinations last few days. Cognitive status, orientation seems to be improving consistent with component of acute delirium. Reduced gabapentin as discussed above and stopped oxybutinin which can also induce hallucination and cognitive changes. (7) Abnormal brain MRI: Plan: neurology note from fall 2022 references the following brain MRI -- certainly these findings could be suggestive of a dementia process -- 2nd to long-standing HIV ? he will need neuro f/u for his Terrance-Bonnet Syndrome, abnormal brain MRI, memory issues (8) CAD (coronary artery disease), [place] coronary artery: Plan: 11/2016 - RCA stent 11/2017 - mid circumflex stent for 99% occlusion h/o LAD disease with collaterals cont asa, statin, zetia, lisinopril, metoprolol succ, imdur no ischemic sx's at this time -BP has been low on a few checks, could be contributing to falls, will reduce dose of Imdur (9) Hypertension: Plan: controlled with complex cardiac med regimen as above (10) Idiopathic polyneuropathy: Plan: cont gabapentin TID - dose reduced 06/05 suspect this contributes heavily to fall risk Plan DVT proph - lovenox once daily Patient will need DURABLE POWER OF ASSEMBLY MACHINE TOOL SETTER and substituted judgment, he is unable to make his own decisions - at least based on psych eval 05/31/23. He will need placement. Numerous referrals have been placed by social work. PT/OT notes reviewed 06/05 both recommending rehab next of kin - brother, who is local in [place]. also there is a niece who lives in [place] - [place] says that his niece is the one who handles most things for him and has his power of divorce attorney Admission and Anticipated Discharge Date Admission Date: May 31, 2023 Lucy Marina is aware he was found down on the ground outside, can't recall how he got there, knows he has broken foot, can't recall how he got wounds on toes. He is amenable to a more supportive living situation. Has numbness of LE but not pain. Physical Exam 2 Physical Exam: PHYSICAL EXAMINATION Last 24h vital signs reviewed, see documentation in flowsheet General: comfortable appearing, no distress HEENT: Normocephalic, atraumatic, pupils round and equal, sclerae anicteric, no conjunctival injection, moist mucus membranes Lungs: Normal respiratory effort. Heart: Regular rate and rhythm, no murmurs. No JVD Abdomen: Soft, nontender, nondistended. Bowel sounds present. Extremities: Warm, dry, well-perfused. No extremity edema. Multiple wounds on dorsal toes - improved, eschars resolved, being dressed by RN Neuro: Alert and oriented x hospital, reasonably well to situation, face symmetric, moves 4 extremities well Psych: Normal affect and behavior Results & Data Results & Data Vital Signs (Past 12 Hours) Vital Signs Temp Pulse Pulse Resp BP BP Pulse Ox 06/05/23 15:21 36.7 C 91 H 16 98/62 L 96 06/05/23 07:25 36.2 C L 64 16 108/66 97 O2 Del Method 06/05/23 15:21 Room Air 06/05/23 07:25 Room Air Laboratory Results 06/03/23 05:30 06/05/23 07:00 PG Care Time/CCT Total # of Minutes Spent Total Time Spent with Patient: Total time spent is greater than 50% in coordination of care (as documented) at patient's floor/unit and/or counseling patient: Coding Level of Care Code 19219 SUB INP/OBS CARE 2/35MIN Diagnoses Rhabdomyolysis M62.82 Fall W19.XXXA Closed displaced fracture of proximal phalanx of lesser toe of left foot, initial encounter S92.512A Encounter type: initial encounter Toe: lesser toe Phalanx: proximal Fracture alignment: displaced HIV disease B20 Type 2 diabetes mellitus E11.9 Terrance Bonnet syndrome H53.16 Abnormal brain MRI R90.89 Coronary artery disease involving [place] coronary artery of [place] heart with angina pectoris I25.119 [place] vs. transplanted heart: [place] heart Associated angina: with unspecified angina Hypertension I10 Idiopathic polyneuropathy G60.9 (3) Fracture of phalanx of left foot, closed Encounter type: initial encounter Toe: lesser toe Phalanx: proximal F racture alignment: displaced Qualified Code(s): S92.512A - Displaced fracture of proximal phalanx of left lesser toe(s), initial encounter for closed fracture (8) CAD (coronary artery disease), [place] coronary artery [place] vs. transplanted heart: [place] heart Associated angina: with unspecified angina Qualified Code(s): I25.119 - Atherosclerotic heart disease of [place] coronary artery with unspecified angina pectoris
[2023-06-05] MEDS: GABAPENTIN 300 MG CAP PO SCH (21:10)
[2023-06-06] MEDS: GABAPENTIN 300 MG CAP PO STA (01:01)
[2023-06-06] MEDS: ISOSORBIDE MONO EXTENDED REL 30 MG TABCR PO SCH (08:45)
--- NOTE | 2023-06-06 18:30 | Hospitalist Progress Note ---
Date of Service June 06, 2023 Assessment & Plan (1) Rhabdomyolysis: Plan: mild, present on admission, resolved was found on the ground outside his apartment CPK was 900s upon admission treated with IV fluids CK normalized 2/6 labs (2) Fall: Plan: present at admission multiple falls and injuries at his home - multifactorial - chronic peripheral neuropathy, medications, gait instability, cannabis use cont PT/OT placement is being pursued he is amenable to moving to a more supportive situation. he acknowledges he's been doing poorly living alone past few months. check B12 (normal) and B1 (pending) gabapentin 800 mg tid home dose could be contributing to falls and cognitive problems. Had increased leg pain last night on 300 mg dose. -adjusted gabapentin to 300 / 300 / 600HS blood pressure appears to be overcontrolled on current meds - see below (3) Fracture of phalanx of left foot, closed: Plan: Left foot fractures - acute/chronic 05/31/23 x-rays - IMPRESSION: 1. Mildly impacted fractures at the bases of the left second, fourth, and fifth proximal phalanges with likely intra-articular extension. These are at the similar location to the 02/13/2023 examination but appear to be acute fractures. 2. No acute fractures within the right foot. seen by Dr Singleton this admission - stiff-soled shoe or surgical shoe needed only; WBAT as tolerated with that shoe 25-OH vit D level normal at 42 (4) HIV disease: Plan: Continue HAART Long-standing diagnosis Last CD4 count >500 Last HIV viral load was undetectable followed by Yeni COSBY during last visit he had a negative RPR (5) Type 2 diabetes mellitus: Plan: On glipizide and Invokana at home He has had hypoglycemia events at home Novolog SSI and empaglifozin Control acceptable A1c at goal 6.8% this admission (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 Patient will need placement. Cognitive status, orientation seems to be improving consistent with component of acute delirium. Reduced gabapentin as discussed above and stopped oxybutynin which can also induce hallucination and cognitive changes. (7) Abnormal brain MRI: Plan: neurology note from fall 2022 references the following brain MRI -- certainly these findings could be suggestive of a dementia process -- 2nd to long-standing HIV ? he will need neuro f/u for his Terrance-Bonnet Syndrome, abnormal brain MRI, memory issues (8) CAD (coronary artery disease), [place] coronary artery: Plan: 11/2016 - RCA stent 11/2017 - mid circumflex stent for 99% occlusion h/o LAD disease with collaterals cont asa, statin, zetia, lisinopril, metoprolol succ, imdur no ischemic sx's at this time -BP has been low on a few checks, could be contributing to falls, reduced dose of Imdur, potentially stop this -reduce dose of metoprolol (9) Hypertension: Plan: controlled with complex cardiac med regimen as above (10) Idiopathic polyneuropathy: Plan: cont gabapentin TID - dose reduced 06/05 suspect this contributes heavily to fall risk Plan DVT proph - lovenox once daily Based on psychiatric evaluation 05/31/23 he was unable to make his own decisions, however, cognition has improved since that time. He will need placement. Numerous referrals have been placed by social work. PT/OT notes reviewed 06/05 both recommending rehab next of kin - brother, who is local in [place]. also there is a niece who lives in [facility] says that his niece is the one who handles most things for him and has his power of insurance attorney Admission and Anticipated Discharge Date Admission Date: May 31, 2023 Subjective doing well except that legs were painful last night on reduced dose of gabapentin, resolved after one time extra 300 mg dose. Physical Exam 2 Physical Exam: PHYSICAL EXAMINATION Last 24h vital signs reviewed, see documentation in flowsheet General: comfortable appearing, no distress, sitting on EOB HEENT: Normocephalic, atraumatic, pupils round and equal, sclerae anicteric, no conjunctival injection, moist mucus membranes Lungs: Normal respiratory effort. Heart: Regular rate and rhythm, no murmurs. No JVD Abdomen: Soft, nontender, nondistended. Bowel sounds present. Extremities: Warm, dry, well-perfused. No extremity edema. Multiple wounds on dorsal toes - dressed Neuro: Alert and oriented x hospital, situation, face symmetric, moves 4 extremities well Psych: Normal affect and behavior Results & Data Results & Data Vital Signs (Past 12 Hours) Vital Signs Temp Pulse Resp BP BP Pulse Ox O2 Del Method 06/06/23 16:07 36.8 C 78 16 95/65 L 96 Room Air 06/06/23 07:41 36.4 C L 68 18 117/59 L 96 Room Air PG Care Time/CCT Total # of Minutes Spent Total Time Spent with Patient: Total time spent is greater than 50% in coordination of care (as documented) at patient's floor/unit and/or counseling patient: Coding Level of Care Code 00196 SUB INP/OBS CARE 2/35MIN Diagnoses Rhabdomyolysis M62.82 Fall W19.XXXA Closed displaced fracture of proximal phalanx of lesser toe of left foot, initial encounter S92.512A Encounter type: initial encounter Toe: lesser toe Phalanx: proximal Fracture alignment: displaced HIV disease B20 Type 2 diabetes mellitus E11.9 Terrance Bonnet syndrome H53.16 Abnormal brain MRI R90.89 Coronary artery disease involving [place] coronary artery of [place] heart with angina pectoris I25.119 [place] vs. transplanted heart: ute heart Associated angina: with unspecified angina Hypertension I10 Idiopathic polyneuropathy G60.9 (3) Fracture of phalanx of left foot, closed Encounter type: initial encounter Toe: lesser toe Phalanx: proximal F racture alignment: displaced Qualified Code(s): S92.512A - Displaced fracture of proximal phalanx of left lesser toe(s), initial encounter for closed fracture (8) CAD (coronary artery disease), ute coronary artery [place] vs. transplanted heart: [place] heart Associated angina: with unspecified angina Qualified Code(s): I25.119 - Atherosclerotic heart disease of [place] coronary artery with unspecified angina pectoris
[2023-06-06] MEDS: GABAPENTIN 600 MG TAB PO SCH (21:05)
[2023-06-07] MEDS: GABAPENTIN 300 MG CAP PO SCH ×2 (08:26→13:15)
[2023-06-07] MEDS: METOPROLOL SUCC 25MG EXT REL TAB PO SCH (08:26)
--- NOTE | 2023-06-07 16:47 | Hospitalist Progress Note ---
Date of Service June 07, 2023 Assessment & Plan (1) Rhabdomyolysis: Plan: mild, present on admission, resolved was found on the ground outside his apartment CPK was 900s upon admission treated with IV fluids CK normalized 2/6 labs (2) Fall: Plan: present at admission multiple falls and injuries at his home - multifactorial - chronic peripheral neuropathy, medications, gait instability, cannabis use cont PT/OT placement is being pursued he is amenable to moving to a more supportive situation. he acknowledges he's been doing poorly living alone past few months. check B12 (normal) and B1 (pending) gabapentin 800 mg tid home dose could be contributing to falls and cognitive problems. Had increased night leg pain on 300 mg dose. -adjusted gabapentin to 300 / 300 / 600HS - had no pain on this regimen blood pressure appears to be overcontrolled on current home meds - see below (3) Fracture of phalanx of left foot, closed: Plan: Left foot fractures - acute/chronic 05/31/23 x-rays - IMPRESSION: 1. Mildly impacted fractures at the bases of the left second, fourth, and fifth proximal phalanges with likely intra-articular extension. These are at the similar location to the 02/13/2023 examination but appear to be acute fractures. 2. No acute fractures within the right foot. seen by Dr Singleton this admission - stiff-soled shoe or surgical shoe needed only; WBAT as tolerated with that shoe 25-OH vit D level normal at 42 (4) HIV disease: Plan: Continue HAART Long-standing diagnosis Last CD4 count >500 Last HIV viral load was undetectable followed by Yeni COSBY during last visit he had a negative RPR (5) Type 2 diabetes mellitus: Plan: On glipizide and Invokana at home He has had hypoglycemia events at home Novolog SSI and empaglifozin Control acceptable A1c at goal 6.8% this admission (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 Patient will need placement. Cognitive status, orientation seems to be improving consistent with component of acute delirium. Reduced gabapentin as discussed above and stopped oxybutynin which can also induce hallucination and cognitive changes. Reports no hallucinations since admission (7) Abnormal brain MRI: Plan: neurology note from fall 2022 references the following brain MRI -- certainly these findings could be suggestive of a dementia process -- 2nd to long-standing HIV ? he will need neuro f/u for his Terrance-Bonnet Syndrome, abnormal brain MRI, memory issues (8) CAD (coronary artery disease), [place] coronary artery: Plan: 11/2016 - RCA stent 11/2017 - mid circumflex stent for 99% occlusion h/o LAD disease with collaterals cont asa, statin, zetia, lisinopril, metoprolol succ, imdur no ischemic sx's at this time -BP has been low on a few checks, could be contributing to falls, reduced dose of Imdur, potentially stop this -reduced dose of metoprolol 06/06 (9) Hypertension: Plan: controlled with complex cardiac med regimen as above (10) Idiopathic polyneuropathy: Plan: cont gabapentin TID - dose reduced 06/05 suspect this contributes heavily to fall risk (11) Wound, open, toe: Plan: multiple toe wounds present on admission reviewed photos from admission and 06/07 - generally improving. several areas remain erythematous and indurated appearing, possibly mild cellulitis immunosuppressed patient -keflex x 7d ordered Plan DVT proph - lovenox once daily Based on psychiatric evaluation 05/31/23 he was unable to make his own decisions, however, cognition has improved since that time. Continues to evidence impaired insight/judgment. He will need placement. Numerous referrals have been placed by social work. PT/OT notes reviewed 06/05 both recommending rehab next of kin - brother, who is local in [place] but recently had a stroke I updated his niece Sary Duval by phone 06/07 Admission and Anticipated Discharge Date Admission Date: May 31, 2023 Subjective feeling much better, had wound nurse examine and dress his feet today, feels like walking improved, no hallucinations since admission "maybe I should just go home" Physical Exam 2 Physical Exam: PHYSICAL EXAMINATION Last 24h vital signs reviewed, see documentation in flowsheet General: comfortable appearing, no distress, sitting in bed HEENT: Normocephalic, atraumatic, pupils round and equal, sclerae anicteric, no conjunctival injection, moist mucus membranes Lungs: Normal respiratory effort. CTAB Heart: Regular rate and rhythm, no murmurs. No JVD Abdomen: nondistended +BT Extremities: Warm, dry, well-perfused. No extremity edema. Multiple wounds on dorsal toes - reviewed photos from today - improved overall, some areas still covered by dark eschar, some erythema and induration confined to toes Neuro: Alert and oriented x hospital, situation, face symmetric, moves 4 extremities well Psych: Normal affect and behavior Results & Data Results & Data Vital Signs (Past 12 Hours) Vital Signs Temp Pulse Resp BP Pulse Ox O2 Del Method 06/07/23 07:44 36.4 C L 64 18 111/70 98 Room Air PG Care Time/CCT Total # of Minutes Spent Total Time Spent with Patient: Total time spent is greater than 50% in coordination of care (as documented) at patient's floor/unit and/or counseling patient: Coding Level of Care Code 18957 SUB INP/OBS CARE 2/35MIN Diagnoses Rhabdomyolysis M62.82 Fall W19.XXXA Closed displaced fracture of proximal phalanx of lesser toe of left foot, initial encounter S92.512A Encounter type: initial encounter Toe: lesser toe Phalanx: proximal Fracture alignment: displaced HIV disease B20 Type 2 diabetes mellitus E11.9 Terrance Bonnet syndrome H53.16 Abnormal brain MRI R90.89 Coronary artery disease involving [place] coronary artery of [place] heart with angina pectoris I25.119 [place] vs. transplanted heart: [place] heart Associated angina: with unspecified angina Hypertension I10 Idiopathic polyneuropathy G60.9 Wound, open, toe S91.109A (3) Fracture of phalanx of left foot, closed Encounter type: initial encounter Toe: lesser toe Phalanx: proximal F racture alignment: displaced Qualified Code(s): S92.512A - Displaced fracture of proximal phalanx of left lesser toe(s), initial encounter for closed fracture (8) CAD (coronary artery disease), [place] coronary artery [place] vs. transplanted heart: [place] heart Associated angina: with unspecified angina Qualified Code(s): I25.119 - Atherosclerotic heart disease of [place] coronary artery with unspecified angina pectoris
[2023-06-07] MEDS: cephALEXin 500 MG CAP PO SCH (17:40)
--- NOTE | 2023-06-08 17:14 | Hospitalist Progress Note ---
Date of Service June 08, 2023 Assessment & Plan (1) Rhabdomyolysis: Plan: mild, present on admission, resolved was found on the ground outside his apartment CPK was 900s upon admission treated with IV fluids CK normalized 2/6 labs (2) Fall: Plan: present at admission multiple falls and injuries at his home - multifactorial - chronic peripheral neuropathy, medications, gait instability, cannabis use cont PT/OT placement is being pursued he is amenable to moving to a more supportive situation. he acknowledges he's been doing poorly living alone past few months. check B12 (normal) and B1 (pending) gabapentin 800 mg tid home dose could be contributing to falls and cognitive problems. Had increased night leg pain on 300 mg dose. -adjusted gabapentin to 300 / 300 / 600HS - had no pain on this regimen blood pressure appears to be overcontrolled on current home meds - see below (3) Fracture of phalanx of left foot, closed: Plan: Left foot fractures - acute/chronic 05/31/23 x-rays - IMPRESSION: 1. Mildly impacted fractures at the bases of the left second, fourth, and fifth proximal phalanges with likely intra-articular extension. These are at the similar location to the 02/13/2023 examination but appear to be acute fractures. 2. No acute fractures within the right foot. 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 Patient will need placement. Cognitive status, orientation seems to be improving consistent with component of acute delirium. Reduced gabapentin as discussed above and stopped oxybutynin which can also induce hallucination and cognitive changes. Reports no hallucinations since admission (7) Abnormal brain MRI: Plan: neurology note from fall 2022 references the following brain MRI -- certainly these findings could be suggestive of a dementia process -- 2nd to long-standing HIV ? he will need neuro f/u for his Terrance-Bonnet Syndrome, abnormal brain MRI, memory issues (8) CAD (coronary artery disease), [place] coronary artery: Plan: 11/2016 - RCA stent 11/2017 - mid circumflex stent for 99% occlusion h/o LAD disease with collaterals cont asa, statin, zetia, lisinopril, metoprolol succ, imdur no ischemic sx's at this time -BP was frequently<100 on usual home regimen, could be contributing to falls -reduced imdur, reduced dose of metoprolol 06/06 -BP improved to 100-110/70s -seems to have mild stable angina vs noncardiac chest pain (brief and nonexertional) that is stable (9) Hypertension: Plan: controlled with complex cardiac med regimen as above (10) Idiopathic polyneuropathy: Plan: cont gabapentin TID - dose reduced 06/05 suspect this contributes heavily to fall risk (11) Wound, open, toe: Plan: multiple toe wounds present on admission reviewed photos from admission and 06/07 - generally improving. several areas remain erythematous and indurated appearing, possibly mild cellulitis immunosuppressed patient -keflex x 7d ordered Plan DVT proph - lovenox once daily Based on psychiatric evaluation 05/31/23 he was unable to make his own decisions, however, cognition has improved since that time. Continues to evidence impaired insight/judgment. He will need placement. Numerous referrals have been placed by social work. PT/OT notes reviewed 06/05 both recommending rehab next of kin - brother, who is local in [place] but recently had a stroke I updated his niece Sary Duval by phone 06/07 Reviewed campground caretaker RN note today and discussed with her - Viki HAWKINS is actually DPOA, referrals out to SNF and ALFs Admission and Anticipated Discharge Date Admission Date: May 31, 2023 Subjective Salas is doing well, he reports no leg pain on current gabapentin dose, we discussed the reduction in his blood pressure medications and reasons for that, he does intermittently get left-sided chest pains that last a few minutes and are not exertional, this is long-term stable symptom. He is less bored now that he has books on tape and he is listening to [employer] Physical Exam 2 Physical Exam: PHYSICAL EXAMINATION Last 24h vital signs reviewed, see documentation in flowsheet General: comfortable appearing, no distress, sitting in bed HEENT: Normocephalic, atraumatic, pupils round and equal, sclerae anicteric, no conjunctival injection, moist mucus membranes Lungs: Normal respiratory effort. CTAB Heart: Regular rate and rhythm, no murmurs. No JVD Abdomen: nondistended +BT Extremities: Warm, dry, well-perfused. No extremity edema. Multiple wounds on dorsal toes currently dressed Neuro: Alert and oriented x hospital, situation, poor insight and judgment however, face symmetric, moves 4 extremities well Psych: Normal affect and behavior Results & Data Results & Data Vital Signs (Past 12 Hours) Vital Signs Temp Pulse Resp BP O2 Del Method 06/08/23 14:47 36.4 C L 82 16 114/72 Room Air 06/08/23 07:06 36.6 C 73 16 102/63 Room Air 06/08/23 07:00 Room Air PG Care Time/CCT Total # of Minutes Spent Total Time Spent with Patient: Total time spent is greater than 50% in coordination of care (as documented) at patient's floor/unit and/or counseling patient: Coding Level of Care Code 86639 SUB INP/OBS CARE 05/24MIN Diagnoses Rhabdomyolysis M62.82 Fall W19.XXXA Closed displaced fracture of proximal phalanx of lesser toe of left foot, initial encounter S92.512A Encounter type: initial encounter Toe: lesser toe Phalanx: proximal Fracture alignment: displaced HIV disease B20 Type 2 diabetes mellitus E11.9 Terrance Bonnet syndrome H53.16 Abnormal brain MRI R90.89 Coronary artery disease involving [place] coronary artery of [place] heart with angina pectoris I25.119 [place] vs. transplanted heart: [place] heart Associated angina: with unspecified angina Hypertension I10 Idiopathic polyneuropathy G60.9 Wound, open, toe S91.109A (3) Fracture of phalanx of left foot, closed Encounter type: initial encounter Toe: lesser toe Phalanx: proximal F racture alignment: displaced Qualified Code(s): S92.512A - Displaced fracture of proximal phalanx of left lesser toe(s), initial encounter for closed fracture (8) CAD (coronary artery disease), [place] coronary artery [place] vs. transplanted heart: [place] heart Associated angina: with unspecified angina Qualified Code(s): I25.119 - Atherosclerotic heart disease of [place] coronary artery with unspecified angina pectoris
--- NOTE | 2023-06-09 17:39 | Hospitalist Progress Note ---
Date of Service June 09, 2023 Assessment & Plan (1) Rhabdomyolysis: Plan: mild, present on admission, resolved was found on the ground outside his apartment CPK was 900s upon admission treated with IV fluids CK normalized 2/6 labs (2) Fall: Plan: present at admission multiple falls and injuries at his home - multifactorial - chronic peripheral neuropathy, medications, gait instability, cannabis use cont PT/OT placement is being pursued he is amenable to moving to a more supportive situation. he acknowledges he's been doing poorly living alone past few months. check B12 (normal) and B1 (pending) gabapentin 800 mg tid home dose could be contributing to falls and cognitive problems. Had increased night leg pain on 300 mg dose. -adjusted gabapentin to 300 / 300 / 600HS - had no pain on this regimen blood pressure appears to be overcontrolled on current home meds - see below (3) Fracture of phalanx of left foot, closed: Plan: Left foot fractures - acute/chronic 05/31/23 x-rays - IMPRESSION: 1. Mildly impacted fractures at the bases of the left second, fourth, and fifth proximal phalanges with likely intra-articular extension. These are at the similar location to the 02/13/2023 examination but appear to be acute fractures. 2. No acute fractures within the right foot. 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 Patient will need placement. Cognitive status, orientation improved consistent with component of acute toxic metabolic encephalopathy / delirium present on admission that has cleared. Reduced gabapentin as discussed above and stopped oxybutynin which can also induce hallucination and cognitive changes. Reports no hallucinations since admission. B1, B12 normal. TSH normal fall [address] cognitive eval (7) Abnormal brain MRI: Plan: neurology note from fall 2022 references the following brain MRI -- certainly these findings could be suggestive of a dementia process -- 2nd to long-standing HIV ? he will need neuro f/u for his Terrance-Bonnet Syndrome, abnormal brain MRI, memory issues (8) CAD (coronary artery disease), [place] coronary artery: Plan: 11/2016 - RCA stent 11/2017 - mid circumflex stent for 99% occlusion h/o LAD disease with collaterals cont asa, statin, zetia, lisinopril, metoprolol succ, imdur no ischemic sx's at this time -BP was frequently<100 on usual home regimen, could be contributing to falls -reduced imdur, reduced dose of metoprolol 06/06 -BP improved to 100-110/70s -seems to have mild stable angina vs noncardiac chest pain (brief and nonexertional) that is stable (9) Hypertension: Plan: controlled with complex cardiac med regimen as above (10) Idiopathic polyneuropathy: Plan: cont gabapentin TID - dose reduced 06/05 suspect this contributes heavily to fall risk (11) Wound, open, toe: Plan: multiple toe wounds present on admission reviewed photos from admission and 06/07 - generally improving. several areas remain erythematous and indurated appearing, possibly mild cellulitis immunosuppressed patient -keflex x 7d ordered Plan DVT proph - lovenox once daily Based on psychiatric evaluation 05/31/23 he was unable to make his own decisions, however, cognition has improved since that time. Continues to evidence impaired insight/judgment. He will need placement. Numerous referrals have been placed by social work. PT/OT notes reviewed 06/05 both recommending rehab next of kin - brother, who is local in [place] but recently had a stroke I updated his niece Sary Duval by phone 06/07 Reviewed director career services RN note today and discussed with her - Viki HAWKINS is actually DPOA, referrals out to SNF and ALFs Admission and Anticipated Discharge Date Admission Date: May 31, 2023 Subjective doing well, reports toe wounds are looking much better, feels better with his walking though PT/OT report poor safety awareness Physical Exam 2 Physical Exam: PHYSICAL EXAMINATION Last 24h vital signs reviewed, see documentation in flowsheet General: comfortable appearing, no distress HEENT: Normocephalic, atraumatic, pupils round and equal, sclerae anicteric, no conjunctival injection, moist mucus membranes Lungs: Normal respiratory effort. CTAB Heart: Regular rate and rhythm, no murmurs. No JVD Abdomen: nondistended +BT Extremities: Warm, dry, well-perfused. No extremity edema. Multiple wounds on dorsal toes currently dressed - surrounding erythema improved Neuro: Alert and oriented x hospital, situation, poor insight and judgment however, face symmetric, moves 4 extremities well Psych: Normal affect and behavior Results & Data Results & Data Vital Signs (Past 12 Hours) Vital Signs Temp Pulse Resp BP Pulse Ox O2 Del Method 06/09/23 15:12 37 C 88 18 98/60 L 95 Room Air 06/09/23 08:00 Room Air 06/09/23 07:15 36.7 C 81 16 119/69 99 Room Air PG Care Time/CCT Total # of Minutes Spent Total Time Spent with Patient: Total time spent is greater than 50% in coordination of care (as documented) at patient's floor/unit and/or counseling patient: Coding Level of Care Code 68086 SUB INP/OBS CARE 1/25MIN Diagnoses Rhabdomyolysis M62.82 Fall W19.XXXA Closed displaced fracture of proximal phalanx of lesser toe of left foot, initial encounter S92.512A Encounter type: initial encounter Toe: lesser toe Phalanx: proximal Fracture alignment: displaced HIV disease B20 Type 2 diabetes mellitus E11.9 Terrance Bonnet syndrome H53.16 Abnormal brain MRI R90.89 Coronary artery disease involving [place] coronary artery of [place] heart with angina pectoris I25.119 [place] vs. transplanted heart: [place] heart Associated angina: with unspecified angina Hypertension I10 Idiopathic polyneuropathy G60.9 Wound, open, toe S91.109A (3) Fracture of phalanx of left foot, closed Encounter type: initial encounter Toe: lesser toe Phalanx: proximal F racture alignment: displaced Qualified Code(s): S92.512A - Displaced fracture of proximal phalanx of left lesser toe(s), initial encounter for closed fracture (8) CAD (coronary artery disease), [place] coronary artery [place] vs. transplanted heart: [place] heart Associated angina: with unspecified angina Qualified Code(s): I25.119 - Atherosclerotic heart disease of [place] coronary artery with unspecified angina pectoris
[2023-06-09] MEDS: MELATONIN 3 MG TAB PO ONE (22:52)
--- NOTE | 2023-06-10 17:49 | Hospitalist Progress Note ---
Date of Service June 10, 2023 Assessment & Plan (1) Rhabdomyolysis: Plan: mild, present on admission, resolved was found on the ground outside his apartment CPK was 900s upon admission treated with IV fluids CK normalized 2/6 labs (2) Fall: Plan: present at admission multiple falls and injuries at his home - multifactorial - chronic peripheral neuropathy, medications, gait instability, cannabis use cont PT/OT placement is being pursued he is amenable to moving to a more supportive situation. he acknowledges he's been doing poorly living alone past few months. B1 and B12 were normal, TSH normal gabapentin 800 mg tid home dose could be contributing to falls and cognitive problems. Had increased night leg pain on 300 mg dose. -adjusted gabapentin to 300 / 300 / 600HS - had no pain on this regimen blood pressure appears to be overcontrolled on current home meds - see below (3) Fracture of phalanx of left foot, closed: Plan: Left foot fractures - acute/chronic 05/31/23 x-rays - IMPRESSION: 1. Mildly impacted fractures at the bases of the left second, fourth, and fifth proximal phalanges with likely intra-articular extension. These are at the similar location to the 02/13/2023 examination but appear to be acute fractures. 2. No acute fractures within the right foot. seen by Dr Singleton this admission - stiff-soled shoe or surgical shoe needed only; WBAT as tolerated with that shoe 25-OH vit D level normal at 42 (4) HIV disease: Plan: Continue HAART Long-standing diagnosis Last CD4 count >500 Last HIV viral load was undetectable followed by Yeni COSBY during last visit he had a negative RPR (5) Type 2 diabetes mellitus: Plan: On glipizide and Invokana at home He has had hypoglycemia events at home Novolog SSI and empaglifozin Control acceptable 06/09 A1c at goal 6.8% this admission (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 Patient will need placement. Cognitive status, orientation improved consistent with component of acute toxic metabolic encephalopathy / delirium present on admission that has cleared. Reduced gabapentin as discussed above and stopped oxybutynin which can also induce hallucination and cognitive changes. Reports no hallucinations since admission. B1, B12 normal. TSH normal fall [address] cognitive eval (7) Abnormal brain MRI: Plan: neurology note from fall 2022 references the following brain MRI -- certainly these findings could be suggestive of a dementia process -- 2nd to long-standing HIV ? he will need neuro f/u for his Terrance-Bonnet Syndrome, abnormal brain MRI, memory issues (8) CAD (coronary artery disease), [place] coronary artery: Plan: 11/2016 - RCA stent 11/2017 - mid circumflex stent for 99% occlusion h/o LAD disease with collaterals cont asa, statin, zetia, lisinopril, metoprolol succ, imdur no ischemic sx's at this time -BP was frequently<100 on usual home regimen, could be contributing to falls -reduced imdur but will stop since bp's frequently in 90s, reduced dose of metoprolol 06/06 -BP improved to 100-110/70s -seems to have mild stable angina vs noncardiac chest pain (brief and nonexertional) that is stable - monitor off imdur (9) Hypertension: Plan: controlled with complex cardiac med regimen as above (10) Idiopathic polyneuropathy: Plan: cont gabapentin TID - dose reduced 06/05 suspect this contributes heavily to fall risk (11) Wound, open, toe: Plan: multiple toe wounds present on admission reviewed photos from admission and 06/07 - generally improving. several areas remain erythematous and indurated appearing, possibly mild cellulitis immunosuppressed patient -keflex x 7d ordered - mild cellulitis appears to have resolved Plan DVT proph - lovenox once daily Based on psychiatric evaluation 05/31/23 he was unable to make his own decisions, however, cognition has improved since that time. Continues to evidence impaired insight/judgment. He will need placement. Numerous referrals have been placed by social work. PT/OT notes reviewed 06/05 both recommending rehab next of kin - brother, who is local in [place] but recently had a stroke I updated his niece Sary Duval by phone 06/07 Reviewed ambulatory care coordinator RN note today and discussed with her - Viki ROSS is actually DPOA, referrals out to SNF and ALFs I updated Wes by phone 06/10 x 10 minutes Admission and Anticipated Discharge Date Admission Date: May 31, 2023 Subjective doing well, talking about going back to his apartment again but we had a conversation about how much trouble he's had living independently this winter and he's willing for rehab or INES placement Physical Exam 2 Physical Exam: PHYSICAL EXAMINATION Last 24h vital signs reviewed, see documentation in flowsheet General: comfortable appearing, no distress HEENT: Normocephalic, atraumatic, pupils round and equal, sclerae anicteric, no conjunctival injection, moist mucus membranes Lungs: Normal respiratory effort. CTAB Heart: Regular rate and rhythm, no murmurs. No JVD Abdomen: nondistended +BT Extremities: Warm, dry, well-perfused. No extremity edema. Multiple wounds on dorsal toes currently dressed - surrounding erythema resolved, forefoot erythema resolved Neuro: Alert and oriented x hospital, situation, poor insight and judgment, face symmetric, moves 4 extremities well Psych: Normal affect and behavior Results & Data Results & Data Vital Signs (Past 12 Hours) Vital Signs Temp Pulse Resp BP Pulse Ox O2 Del Method 06/10/23 15:43 37.0 C 88 18 97/66 L 96 Room Air 06/10/23 07:40 Room Air 06/10/23 07:05 36.3 C L 77 16 102/65 95 Room Air PG Care Time/CCT Total # of Minutes Spent Total Time Spent with Patient: I personally spent: 25 minutes today on clinical care activities including: reviewing chart notes and vital signs examining and counseling the patient counseling the patient's family writing orders documentation Coding Level of Care Code 70640 SUB INP/OBS CARE 2/35MIN Diagnoses Rhabdomyolysis M62.82 Fall W19.XXXA Closed displaced fracture of proximal phalanx of lesser toe of left foot, initial encounter S92.512A Encounter type: initial encounter Toe: lesser toe Phalanx: proximal Fracture alignment: displaced HIV disease B20 Type 2 diabetes mellitus E11.9 Terrance Bonnet syndrome H53.16 Abnormal brain MRI R90.89 Coronary artery disease involving [place] coronary artery of [place] heart with angina pectoris I25.119 [place] vs. transplanted heart: [place] heart Associated angina: with unspecified angina Hypertension I10 Idiopathic polyneuropathy G60.9 Wound, open, toe S91.109A (3) Fracture of phalanx of left foot, closed Encounter type: initial encounter Toe: lesser toe Phalanx: proximal F racture alignment: displaced Qualified Code(s): S92.512A - Displaced fracture of proximal phalanx of left lesser toe(s), initial encounter for closed fracture (8) CAD (coronary artery disease), [place] coronary artery [place] vs. transplanted heart: [place] heart Associated angina: with unspecified angina Qualified Code(s): I25.119 - Atherosclerotic heart disease of [place] coronary artery with unspecified angina pectoris
--- NOTE | 2023-06-11 17:50 | Hospitalist Progress Note ---
Date of Service June 11, 2023 Assessment & Plan (1) Rhabdomyolysis: Plan: mild, present on admission, resolved was found on the ground outside his apartment CPK was 900s upon admission treated with IV fluids CK normalized 2/ labs (2) Fall: Plan: present at admission multiple falls and injuries at his home - multifactorial - chronic peripheral neuropathy, medications, gait instability, cannabis use cont PT/OT placement is being pursued he is amenable to moving to a more supportive situation. he acknowledges he's been doing poorly living alone past few months. B1 and B12 were normal, TSH normal gabapentin 800 mg tid home dose could be contributing to falls and cognitive problems. Had increased night leg pain on 300 mg dose. -adjusted gabapentin to 300 / 300 / 600HS - had no pain on this regimen blood pressure appears to be overcontrolled on current home meds - see below (3) Fracture of phalanx of left foot, closed: Plan: Left foot fractures - acute/chronic 05/31/23 x-rays - IMPRESSION: 1. Mildly impacted fractures at the bases of the left second, fourth, and fifth proximal phalanges with likely intra-articular extension. These are at the similar location to the 02/13/2023 examination but appear to be acute fractures. 2. No acute fractures within the right foot. seen by Dr Singleton this admission - stiff-soled shoe or surgical shoe needed only; WBAT as tolerated with that shoe 25-OH vit D level normal at 42 (4) HIV disease: Plan: Continue HAART Long-standing diagnosis Last CD4 count >500 Last HIV viral load was undetectable followed by Yeni COSBY during last visit he had a negative RPR (5) Type 2 diabetes mellitus: Plan: On glipizide and Invokana at home He has had hypoglycemia events at home Novolog SSI and empaglifozin Control acceptable 06/09 A1c at goal 6.8% this admission (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 Patient will need placement. Cognitive status, orientation improved consistent with component of acute toxic metabolic encephalopathy / delirium present on admission that has cleared. Reduced gabapentin as discussed above and stopped oxybutynin which can also induce hallucination and cognitive changes. Reports no hallucinations since admission. B1, B12 normal. TSH normal fall 2022 ST cognitive eval 06/11 - mild-mod impairment immediate memory, moderate impairment problem solving and abstract reasoning, recommended ongoing ST in rehab setting for executive functioning deficits, recommended supervision for cognitive deficits (7) Abnormal brain MRI: Plan: neurology note from fall 2022 references the following brain MRI -- certainly these findings could be suggestive of a dementia process -- 2nd to long-standing HIV ? he will need neuro f/u for his Terrance-Bonnet Syndrome, abnormal brain MRI, memory issues (8) CAD (coronary artery disease), [place] coronary artery: Plan: 11/2016 - RCA stent 11/2017 - mid circumflex stent for 99% occlusion h/o LAD disease with collaterals cont asa, statin, zetia, lisinopril, metoprolol succ no ischemic sx's at this time -BP was frequently<100 on usual home regimen, could be contributing to falls -reduced imdur but will stop since bp's frequently in 90s, reduced dose of metoprolol 06/06 -BP improved to 100-110/70s -seems to have mild stable angina vs more likely noncardiac chest pain (brief and nonexertional) that is stable - monitor off imdur - reports no chest pain at this time (9) Hypertension: Plan: controlled with complex cardiac med regimen as above (10) Idiopathic polyneuropathy: Plan: cont gabapentin TID - dose reduced 06/05 suspect this contributes heavily to fall risk (11) Wound, open, toe: Plan: multiple toe wounds present on admission reviewed photos from admission and 06/07 - generally improving. several areas remain erythematous and indurated appearing, possibly mild cellulitis immunosuppressed patient -keflex x 7d ordered - mild cellulitis appears to have resolved Plan DVT proph - lovenox once daily Based on psychiatric evaluation 05/31/23 he was unable to make his own decisions, however, cognition has improved since that time. Continues to evidence impaired insight/judgment. He will need placement. Numerous referrals have been placed by social work. PT/OT notes reviewed 06/05 both recommending rehab next of kin - brother, who is local in [place] but recently had a stroke I updated his niece Sary Duval by phone 06/07 Reviewed health care coach RN note today and discussed with her - Viki HAWKINS is actually DPOA, referrals out to SNF and ALFs I updated Wes by phone 06/10 x 10 minutes Admission and Anticipated Discharge Date Admission Date: May 31, 2023 Subjective doing well, had ST cog eval, toes continue to improve with wound care, has not had any chest pain, says he made a call to an INES and left a message today Physical Exam 2 Physical Exam: PHYSICAL EXAMINATION Last 24h vital signs reviewed, see documentation in flowsheet General: comfortable appearing, no distress HEENT: Normocephalic, atraumatic, pupils round and equal, sclerae anicteric, no conjunctival injection, moist mucus membranes Lungs: Normal respiratory effort Heart: Abdomen: nondistended Extremities: Warm, dry, well-perfused. No extremity edema. Multiple wounds on dorsal toes currently dressed - surrounding erythema resolved, forefoot erythema resolved Neuro: Alert and oriented x hospital, situation, poor insight and judgment, face symmetric, moves 4 extremities well Psych: Normal affect and behavior Results & Data Results & Data Vital Signs (Past 12 Hours) Vital Signs Temp Pulse Resp BP Pulse Ox O2 Del Method 06/11/23 15:34 36.6 C 86 18 103/68 99 Room Air 06/11/23 07:45 36.2 C L 72 20 106/63 95 Room Air PG Care Time/CCT Total # of Minutes Spent Total Time Spent with Patient: Total time spent is greater than 50% in coordination of care (as documented) at patient's floor/unit and/or counseling patient: Coding Level of Care Code 09764 SUB INP/OBS CARE 05/24MIN Diagnoses Rhabdomyolysis M62.82 Fall W19.XXXA Closed displaced fracture of proximal phalanx of lesser toe of left foot, initial encounter S92.512A Encounter type: initial encounter Fracture alignment: displaced Phalanx: proximal Toe: lesser toe HIV disease B20 Type 2 diabetes mellitus E11.9 Terrance Bonnet syndrome H53.16 Abnormal brain MRI R90.89 Coronary artery disease involving [place] coronary artery of [place] heart with angina pectoris I25.119 Associated angina: with unspecified angina [place] vs. transplanted heart: [place] heart Hypertension I10 Idiopathic polyneuropathy G60.9 Wound, open, toe S91.109A (3) Fracture of phalanx of left foot, closed Encounter type: initial encounter Fracture alignment: displaced Phalanx: p roximal Toe: lesser toe Qualified Code(s): S92.512A - Displaced fracture of proximal phalanx of left lesser toe(s), initial encounter for closed fracture (8) CAD (coronary artery disease), [place] coronary artery Associated angina: with unspecified angina [place] vs. transplanted heart: [place] heart Qualified Code(s): I25.119 - Atherosclerotic heart disease of [place] coronary artery with unspecified angina pectoris
[2023-06-12 07:33] LABS: Hematocrit (blood only) 42.1 % (42.0-52.0); Hemoglobin 14.4 g/dl (14.0-18.0); Mean Corpuscular Hemoglobin 33.1 pg (25.0-34.0); Mean Corpuscular Hgb Conc 34.2 g/dL (32.0-36.0); Mean Corpuscular Volume 96.8 fL (80.0-100.0); Mean Platelet Volume 9.2 fL (9.4-12.4); Platelet Count 215 K/uL (130-400); RDW Coefficient of Variation 12.5 % (11.5-14.5); RDW Standard Deviation 44.4 fL (36.4-46.3); Red Blood Count 4.35 M/uL (4.70-6.10)
[2023-06-12 08:01] LABS: BUN Creatinine Ratio 30.9 (10-20); Calcium 9.6 mg/dl (8.6-10.3); Creatinine Clr Calc Pharmacy 64.5 ml/min; Est GFR (Non-African American) 68.1 ml/min; Potassium 4.6 mmol/L (3.5-5.1)
--- NOTE | 2023-06-12 17:48 | Hospitalist Progress Note ---
Date of Service June 12, 2023 Assessment & Plan (1) Rhabdomyolysis: Plan: mild, present on admission, resolved was found on the ground outside his apartment CPK was 900s upon admission treated with IV fluids CK normalized 2/6 labs (2) Fall: Plan: present at admission multiple falls and injuries at his home - multifactorial - chronic peripheral neuropathy, medications, gait instability, cannabis use cont PT/OT placement is being pursued he is amenable to moving to a more supportive situation. he acknowledges he's been doing poorly living alone past few months. B1 and B12 were normal, TSH normal gabapentin 800 mg tid home dose could be contributing to falls and cognitive problems. Had increased night leg pain on 300 mg dose. -adjusted gabapentin to 300 / 300 / 600HS - had no pain on this regimen blood pressure appears to be overcontrolled on current home meds - see below (3) Fracture of phalanx of left foot, closed: Plan: Left foot fractures - acute/chronic 05/31/23 x-rays - IMPRESSION: 1. Mildly impacted fractures at the bases of the left second, fourth, and fifth proximal phalanges with likely intra-articular extension. These are at the similar location to the 02/13/2023 examination but appear to be acute fractures. 2. No acute fractures within the right foot. seen by Dr Singleton this admission - stiff-soled shoe or surgical shoe needed only; WBAT as tolerated with that shoe reinforced with patient today he has to wear the post-op shoe staff aware as well 25-OH vit D level normal at 42 (4) HIV disease: Plan: Continue HAART Long-standing diagnosis Last CD4 count >500 Last HIV viral load was undetectable followed by Yeni COSBY during last visit he had a negative RPR (5) Type 2 diabetes mellitus: Plan: On glipizide and Invokana at home had hypoglycemia events at home Cont Novolog SSI and empaglifozin Control very acceptable A1c at goal 6.8% this admission (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 Patient will need placement. Cognitive status, orientation improved consistent with component of acute toxic metabolic encephalopathy / delirium present on admission that has cleared. Reduced gabapentin as discussed above and stopped oxybutynin which can also induce hallucinations and cognitive changes. B1, B12 normal. TSH normal fall 3 speech therapy performed cognitive eval 06/11 - mild-mod impairment immediate memory, moderate impairment problem solving and abstract reasoning, recommended ongoing therapy in rehab setting for executive functioning deficits, recommended supervision for cognitive deficits has not needed any seroquel of late (7) Abnormal brain MRI: Plan: neurology note from fall 2022 references the following brain MRI -- certainly these findings could be suggestive of a dementia process -- 2nd to long-standing HIV ? he will need neuro f/u for his Terrance-Bonnet Syndrome, abnormal brain MRI, memory issues (8) CAD (coronary artery disease), [place] coronary artery: Plan: 11/2016 - RCA stent 11/2017 - mid circumflex stent for 99% occlusion h/o LAD disease with collaterals cont asa, statin, zetia, lisinopril, metoprolol succ imdur stopped due to low BPs metoprolol succ dose also reduced with reduction in above 2 meds no anginal symptoms (9) Hypertension: Plan: controlled with complex cardiac med regimen as above (10) Idiopathic polyneuropathy: Plan: cont gabapentin TID - dose reduced 06/05 suspect this may have been contributing to fall risk (11) Wound, open, toe: Plan: multiple toe wounds present on admission cont local wound care w/ optifoams these are healing ?cellulitis of these wounds -- thus, on 7-day course of keflex; today is day #6 Plan DVT proph - lovenox once daily Based on psychiatric evaluation 05/31/23 he was unable to make his own decisions, however, cognition has improved since that time. Continues to evidence impaired insight/judgment. He will need placement. Numerous referrals have been placed by social work. PT/OT notes reviewed 06/05 both recommending rehab next of kin - brother, who is local in [email or web address] but recently had a stroke Previous attending MD updated his niece Sary Duval by phone 06/07 and Viki (sister in law) and Jf (brother) by phone 06/10 Admission and Anticipated Discharge Date Admission Date: May 31, 2023 Subjective walking the hallways he is not using the surgical shoe on L foot (has 3 Fx's) eating ok no new complaints Review of Systems 2 Review of Systems: gen - feels good, anxious to leave hospital cv - no cp pulm - no dyspnea GI - no abd pain Physical Exam 2 Physical Exam: gen - thin, NAD, pleasant neck - no JVD heart - RRR, s1 s2, no murmur lungs - CTA b/l abd - soft NT ND BS+; no HSM ext - trace edema right foot, none on left; pulses 2+ b/l skin - multiple optifoams in place b/l feet - these were removed; ulcerations R foot healing nicely; no cellulitis; ulcerations left foot x 2 with some tissue that looks devitalized but no cellulitis vascular - pulses b/l feet 2+ b Results & Data Results & Data Vital Signs (Past 12 Hours) Vital Signs Temp Pulse Resp BP Pulse Ox O2 Del Method 06/12/23 16:20 36.9 C 79 18 123/78 96 Room Air 06/12/23 07:40 36.3 C L 91 H 18 103/67 98 Room Air PG Care Time/CCT Total # of Minutes Spent Total Time Spent with Patient: Total time spent is greater than 50% in coordination of care (as documented) at patient's floor/unit and/or counseling patient: Coding Level of Care Code 02074 SUB INP/OBS CARE 2/35MIN Diagnoses Rhabdomyolysis M62.82 Fall W19.XXXA Closed displaced fracture of proximal phalanx of lesser toe of left foot, initial encounter S92.512A Encounter type: initial encounter Fracture alignment: displaced Phalanx: proximal Toe: lesser toe HIV disease B20 Type 2 diabetes mellitus E11.9 Terrance Bonnet syndrome H53.16 Abnormal brain MRI R90.89 Coronary artery disease involving [place] coronary artery of [place] heart with angina pectoris I25.119 Associated angina: with unspecified angina [place] vs. transplanted heart: [place] heart Hypertension I10 Idiopathic polyneuropathy G60.9 Wound, open, toe S91.109A (3) Fracture of phalanx of left foot, closed Encounter type: initial encounter Fracture alignment: displaced Phalanx: p roximal Toe: lesser toe Qualified Code(s): S92.512A - Displaced fracture of proximal phalanx of left lesser toe(s), initial encounter for closed fracture (8) CAD (coronary artery disease), [place] coronary artery Associated angina: with unspecified angina [place] vs. transplanted heart: n ative heart Qualified Code(s): I25.119 - Atherosclerotic heart disease of [place] coronary artery with unspecified angina pectoris
[2023-06-12] MEDS: QUEtiapine FUMARATE 25 MG TABLET PO PRN (22:06)
--- NOTE | 2023-06-13 21:25 | Hospitalist Progress Note ---
Date of Service June 13, 2023 Assessment & Plan (1) Cognitive impairment: Plan: patient with baseline cognitive impairment, some days worse than others had superimposed encephalopathy when he got admitted - this is now resolved due to the cognitive impairment there is concern about him living alone thus assisted living is being pursued, possibly preceded by acute rehab at SNF level?? will need to d/w social work the above issues (2) Rhabdomyolysis: Plan: mild, present on admission -- resolved was found on the ground outside his apartment CPK was 900s upon admission treated with IV fluids CK normalized 2/6 labs (3) Fall: Plan: present at admission multiple falls and injuries at his home - multifactorial - chronic peripheral neuropathy, medications, gait instability, cannabis use cont PT/OT placement is being pursued he is amenable to moving to a more supportive situation. he acknowledges he's been doing poorly living alone past few months. B1 and B12 were normal, TSH normal gabapentin 800 mg tid home dose could be contributing to falls and cognitive problems. Had increased night leg pain on 300 mg dose. -adjusted gabapentin to 300 / 300 / 600HS - had no pain on this regimen blood pressure appears to be overcontrolled on current home meds - see below (4) Fracture of phalanx of left foot, closed: Plan: Left foot fractures - acute/chronic 05/31/23 x-rays - IMPRESSION: 1. Mildly impacted fractures at the bases of the left second, fourth, and fifth proximal phalanges with likely intra-articular extension. These are at the similar location to the 02/13/2023 examination but appear to be acute fractures. 2. No acute fractures within the right foot. seen by Dr Singleton this admission - stiff-soled shoe or surgical shoe needed only; WBAT as tolerated with that shoe reinforced with patient today he has to wear the post-op shoe staff aware as well 25-OH vit D level normal at 42 will obtain new x-rays tomorrow to ensure these are healing appropriately since it has been about 2 weeks since last imaging (5) HIV disease: Plan: Continue HAART Long-standing diagnosis Last CD4 count >500 Last HIV viral load was undetectable followed by Yeni COSBY during last visit he had a negative RPR (6) Type 2 diabetes mellitus: Plan: On glipizide and Invokana at home had hypoglycemia events at home Cont Novolog SSI and empaglifozin Control very acceptable A1c at goal 6.8% this admission (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 Patient will need placement. Cognitive status, orientation improved consistent with component of acute toxic metabolic encephalopathy / delirium present on admission that has cleared. Reduced gabapentin as discussed above and stopped oxybutynin which can also induce hallucinations and cognitive changes. B1, B12 normal. TSH normal fall 2022 speech therapy performed cognitive eval 06/11 - mild-mod impairment immediate memory, moderate impairment problem solving and abstract reasoning, recommended ongoing therapy in rehab setting for executive functioning deficits, recommended supervision for cognitive deficits has not needed any seroquel of late (8) Abnormal brain MRI: Plan: neurology note from fall 2022 references the following brain MRI -- certainly these findings could be suggestive of a dementia process -- 2nd to long-standing HIV ? he will need neuro f/u for his Terrance-Bonnet Syndrome, abnormal brain MRI, memory issues (9) CAD (coronary artery disease), [place] coronary artery: Plan: 11/2016 - RCA stent 11/2017 - mid circumflex stent for 99% occlusion h/o LAD disease with collaterals cont asa, statin, zetia, lisinopril, metoprolol succ imdur stopped due to low BPs metoprolol succ dose also reduced with reduction in above 2 meds no anginal symptoms (10) Hypertension: Plan: controlled with complex cardiac med regimen as above (11) Idiopathic polyneuropathy: Plan: cont gabapentin TID - dose reduced 06/05 suspect this may have been contributing to fall risk (12) Wound, open, toe: Plan: multiple toe wounds present on admission cont local wound care w/ optifoams these are healing ?cellulitis of these wounds -- thus, on 7-day course of keflex; today is day #7 will stop abx after tonight's dose Plan DVT proph - lovenox once daily Based on psychiatric evaluation 05/31/23 he was unable to make his own decisions, however, cognition has improved since that time. Continues to evidence impaired insight/judgment. He will need placement. Numerous referrals have been placed by social work. PT/OT notes reviewed 06/05 both recommending rehab next of kin - brother, who is local in [place] but recently had a stroke Previous attending MD updated his niece Sary Duval by phone 06/07 and Viki (sister in law) and Jf (brother) by phone 06/10 Admission and Anticipated Discharge Date Admission Date: May 31, 2023 Subjective no new issues overnight eating well using the post-op surgical shoe for left foot with ambulation no diarrhea no dyspnea no new complaints anxious to get to rehab or assisted living Review of Systems 2 Review of Systems: gen - no fevers or chills cv - no chest pain pulm - no cough Physical Exam 2 Physical Exam: gen - thin, NAD neck - no JVD heart - RRR, s1 s2, no murmur lungs - CTA b/l abd - soft NT ND BS+; no HSM ext - no edema b/l today; pulses 2+ b/l skin - multiple optifoams in place b/l feet - I left these in place today vascular - pulses b/l feet 2+ Results & Data Results & Data Vital Signs (Past 12 Hours) Vital Signs Temp Pulse Pulse Pulse Resp BP Pulse Ox 06/13/23 20:22 36.4 C L 69 16 115/72 98 06/13/23 19:59 06/13/23 15:46 36.7 C 76 14 118/70 98 06/13/23 12:13 36.5 C 84 15 112/72 96 O2 Del Method 06/13/23 20:22 Room Air 06/13/23 19:59 Room Air 06/13/23 15:46 Room Air 06/13/23 12:13 Room Air Laboratory Results Laboratory Results - last 48 hr 06/12/23 06/12/23 06/12/23 11:51 16:33 20:16 POC Glucose 216 H 160 H 149 H 06/13/23 06/13/23 06/13/23 08:03 12:03 16:35 POC Glucose 142 H 171 H 114 H PG Care Time/CCT Total # of Minutes Spent Total Time Spent with Patient: Total time spent is greater than 50% in coordination of care (as documented) at patient's floor/unit and/or counseling patient: Coding Level of Care Code 41108 SUB INP/OBS CARE 05/24MIN Diagnoses Cognitive impairment R41.89 Rhabdomyolysis M62.82 Fall W19.XXXA Closed displaced fracture of proximal phalanx of lesser toe of left foot, initial encounter S92.512A Encounter type: initial encounter Fracture alignment: displaced Phalanx: proximal Toe: lesser toe HIV disease B20 Type 2 diabetes mellitus E11.9 Terrance Bonnet syndrome H53.16 Abnormal brain MRI R90.89 Coronary artery disease involving [place] coronary artery of [place] heart with angina pectoris I25.119 Associated angina: with unspecified angina [place] vs. transplanted heart: [place] heart Hypertension I10 Idiopathic polyneuropathy G60.9 Wound, open, toe S91.109A (4) Fracture of phalanx of left foot, closed Encounter type: initial encounter Fracture alignment: displaced Phalanx: p roximal Toe: lesser toe Qualified Code(s): S92.512A - Displaced fracture of proximal phalanx of left lesser toe(s), initial encounter for closed fracture (9) CAD (coronary artery disease), [place] coronary artery Associated angina: with unspecified angina [place] vs. transplanted heart: n ative heart Qualified Code(s): I25.119 - Atherosclerotic heart disease of [place] coronary artery with unspecified angina pectoris
--- NOTE | 2023-06-14 10:59 | XRay Report ---
XR foot LT min 3V routine CLINICAL HISTORY: multiple fractures, interval change/assess healing. Follow-up left toe fractures. COMPARISON STUDY: Left foot 05/31/2023. FINDINGS: There again noted impacted fractures at the bases of the left second, fourth, and fifth pro ximal phalanges. These likely demonstrate intra-articular extension. Mild sclerosis of the fracture s ite suggests interval healing. The alignment remains unchanged. Soft tissue swelling at the MTP joint s and toes. Small ossific density at the lateral base of the first toe proximal phalanx may represent an age-indeterminate fracture. Vascular calcifications are noted. The Lisfranc joint is intact. No d islocation. IMPRESSION: 1. Interval mild healing associated with the fractures at the base of the left second, fourth, and fi fth proximal phalanges. 2. Small ossific density at the lateral base of the first toe proximal phalanx which may represent an age-indeterminate fracture. ACT 112: Negative or not required by law. Electronically signed by: Isaac Alexander M.D. 06/14/2023 10:58 AM
--- NOTE | 2023-06-14 20:06 | Hospitalist Progress Note ---
Date of Service June 14, 2023 Assessment & Plan (1) Cognitive impairment: Plan: patient with baseline cognitive impairment, some days worse than others - but of late appears to have decent insight he does acknowledge that living alone has been challenging for him and that he has been struggling he also acknowledges that THC & etoh use is contributing heavily to his problems when he is using both substances he becomes altered had superimposed encephalopathy when he got admitted - this is now resolved due to the cognitive impairment there is concern about him living alone thus assisted living is being pursued social work found a bed for him at a facility near [place] but the bed won't be available until 1-2 months from now (2) Rhabdomyolysis: Plan: mild, present on admission -- resolved was found on the ground outside his apartment CPK was 900s upon admission treated with IV fluids CK normalized 2/6 labs (3) Fall: Plan: present at admission multiple falls and injuries at his home - multifactorial - chronic peripheral neuropathy, medications, gait instability, cannabis use cont PT/OT placement is being pursued he is amenable to moving to a more supportive situation. he acknowledges he's been doing poorly living alone past few months. B1 and B12 were normal, TSH normal gabapentin 800 mg tid home dose could be contributing to falls and cognitive problems. Had increased night leg pain on 300 mg dose. -adjusted gabapentin to 300 / 300 / 600HS - had no pain on this regimen blood pressure appears to be overcontrolled on current home meds - see below (4) Fracture of phalanx of left foot, closed: Plan: Left foot fractures - acute/chronic 05/31/23 x-rays - IMPRESSION: 1. Mildly impacted fractures at the bases of the left second, fourth, and fifth proximal phalanges with likely intra-articular extension. These are at the similar location to the 02/13/2023 examination but appear to be acute fractures. 2. No acute fractures within the right foot. seen by Dr Singleton this admission - stiff-soled shoe or surgical shoe needed only; WBAT as tolerated with that shoe reinforced with patient today he has to wear the post-op shoe staff aware as well 25-OH vit D level normal at 42 repeat x-rays today show ongoing healing (5) HIV disease: Plan: Continue HAART Long-standing diagnosis Last CD4 count >500 Last HIV viral load was undetectable followed by [facility] during last visit he had a negative RPR (6) Type 2 diabetes mellitus: Plan: On glipizide and Invokana at home had hypoglycemia events at home Cont Novolog SSI and empaglifozin Control very acceptable A1c at goal 6.8% this admission (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 Patient will need placement. Cognitive status, orientation improved consistent with component of acute toxic metabolic encephalopathy / delirium present on admission that has cleared. Reduced gabapentin as discussed above and stopped oxybutynin which can also induce hallucinations and cognitive changes. B1, B12 normal. TSH normal fall 2022 speech therapy performed cognitive eval 06/11 - mild-mod impairment immediate memory, moderate impairment problem solving and abstract reasoning, recommended ongoing therapy in rehab setting for executive functioning deficits, recommended supervision for cognitive deficits has not needed any seroquel of late (8) Abnormal brain MRI: Plan: neurology note from fall 2022 references the following brain MRI -- certainly these findings could be suggestive of a dementia process -- 2nd to long-standing HIV ? he will need neuro f/u for his Terrance-Bonnet Syndrome, abnormal brain MRI, memory issues (9) CAD (coronary artery disease), [place] coronary artery: Plan: 11/2016 - RCA stent 11/2017 - mid circumflex stent for 99% occlusion h/o LAD disease with collaterals cont asa, statin, zetia, lisinopril, metoprolol succ imdur stopped due to low BPs metoprolol succ dose also reduced with reduction in above 2 meds no anginal symptoms (10) Hypertension: Plan: controlled with complex cardiac med regimen as above (11) Idiopathic polyneuropathy: Plan: cont gabapentin TID - dose reduced 06/05 no complaints of worsening neuropathic pain since reducing his dose (12) Wound, open, toe: Plan: multiple toe wounds present on admission cont local wound care w/ optifoams these are healing nicely cellulitis of these wounds -- rseolved s/p 7-day course of keflex -- abx are complete Plan DVT proph - lovenox once daily Based on psychiatric evaluation 05/31/23 he was unable to make his own decisions, however, cognition has improved significantly since that time. I had extensive conversation today with the pt, his brother Jf, and his sister in law Viki at bedside today Pt also has a niece - Sary Duval - that lives in [facility] -- Dr Bowles spoke with her by phone last week extensive discussion held with Deirdre from case management today re: his disposition plan appreciate her assistance Admission and Anticipated Discharge Date Admission Date: May 31, 2023 Subjective no new issues overnight during the visit his brother & wuyved-[id number] were present his nclien-tz-weo is his POA we had lengthy discussion about his disposition - that the assisted living facility near [place] is offering him a bed but it won't be ready for 1-2 months, and that we need to find suitable housing and help prior to that time he was upset, stating he could "go home" and make do while waiting for the assisted living bed to open he admitted that his THC use and alcohol use has caused considerable problems for him he admits he lost his hearing aids and glasses at home and is behind on bills from physical standpoint no changes and no complaints today Review of Systems 2 Review of Systems: gen - feels well, eating well musculo - no c/o pain anywhere GI - no abd pain pulm - no dyspnea CV - no chest pain Physical Exam 2 Physical Exam: gen - thin, NAD, sitting at side of bed neck - no JVD heart - RRR, s1 s2, no murmur lungs - CTA b/l abd - soft NT ND BS+; no HSM ext - no edema b/l; pulses 2+ b/l; venous pooling effect in feet skin - multiple optifoams in place b/l feet vascular - pulses b/l feet 2+ Results & Data Results & Data Vital Signs (Past 12 Hours) Vital Signs Temp Pulse Resp BP Pulse Ox O2 Del Method 06/14/23 15:54 36.6 C 79 16 109/73 97 Room Air Laboratory Results Laboratory Results - last 24 hr 06/13/23 06/14/23 06/14/23 20:20 07:21 11:26 POC Glucose 135 H 161 H 177 H 06/14/23 16:49 POC Glucose 114 H Diagnostic Findings Foot X-Ray 06/14/23 09:28 XR foot LT min 3V routine CLINICAL HISTORY: multiple fractures, interval change/assess healing. Follow-up left toe fractures. COMPARISON STUDY: Left foot 05/31/2023. FINDINGS: There again noted impacted fractures at the bases of the left second, fourth, and fifth proximal phalanges. These likely demonstrate intra-articular extension. Mild sclerosis of the fracture site suggests interval healing. The alignment remains unchanged. Soft tissue swelling at the MTP joints and toes. Small ossific density at the lateral base of the first toe proximal phalanx may represent an age-indeterminate fracture. Vascular calcifications are noted. The Lisfranc joint is intact. No dislocation. IMPRESSION: 1. Interval mild healing associated with the fractures at the base of the left second, fourth, and fifth proximal phalanges. 2. Small ossific density at the lateral base of the first toe proximal phalanx which may represent an age-indeterminate fracture. ACT 112: Negative or not required by law. Electronically signed by: Isaac Alexander M.D. 06/14/2023 10:58 AM PG Care Time/CCT Total # of Minutes Spent Total Time Spent with Patient: Total time spent is greater than 50% in coordination of care (as documented) at patient's floor/unit and/or counseling patient: Coding Level of Care Code 66576 SUB INP/OBS CARE 2/35MIN Diagnoses Cognitive impairment R41.89 Rhabdomyolysis M62.82 Fall W19.XXXA Closed displaced fracture of proximal phalanx of lesser toe of left foot, initial encounter S92.512A Encounter type: initial encounter Fracture alignment: displaced Phalanx: proximal Toe: lesser toe HIV disease B20 Type 2 diabetes mellitus E11.9 Terrance Bonnet syndrome H53.16 Abnormal brain MRI R90.89 Coronary artery disease involving [place] coronary artery of [place] heart with angina pectoris I25.119 Associated angina: with unspecified angina [place] vs. transplanted heart: [place] heart Hypertension I10 Idiopathic polyneuropathy G60.9 Wound, open, toe S91.109A (4) Fracture of phalanx of left foot, closed Encounter type: initial encounter Fracture alignment: displaced Phalanx: p roximal Toe: lesser toe Qualified Code(s): S92.512A - Displaced fracture of proximal phalanx of left lesser toe(s), initial encounter for closed fracture (9) CAD (coronary artery disease), [place] coronary artery Associated angina: with unspecified angina [place] vs. transplanted heart: n ative heart Qualified Code(s): I25.119 - Atherosclerotic heart disease of [place] coronary artery with unspecified angina pectoris
--- NOTE | 2023-06-15 20:19 | Hospitalist Progress Note ---
Date of Service June 15, 2023 Assessment & Plan (1) Cognitive impairment: Plan: patient with some mild baseline cognitive impairment, some days worse than others - but of late appears to have relatively intact insight he does acknowledge that living alone has been challenging for him and that he has been struggling in his apartment in [place] he also acknowledges that THC & etoh use is contributing heavily to his problems when he is using both substances he becomes altered had superimposed encephalopathy when he got admitted - this is now resolved due to the cognitive impairment there is concern about him living alone thus assisted living is being pursued social work found a bed for him at a facility near [place] but the bed won't be available until 1-2 months from now he likely has a bed at [facility] next week which would be temporary until the assisted living facility in [place] is ready for him patient aware of above plan (2) Rhabdomyolysis: Plan: mild, present on admission -- resolved was found on the ground outside his apartment CPK was 900s upon admission treated with IV fluids CK normalized 2/6 labs (3) Fall: Plan: present at admission multiple falls and injuries at his home - multifactorial - chronic peripheral neuropathy, medications, gait instability, cannabis use cont PT/OT placement is being pursued he is amenable to moving to a more supportive situation. he acknowledges he's been doing poorly living alone past few months. B1 and B12 were normal, TSH normal gabapentin 800 mg tid home dose could be contributing to falls and cognitive problems. Had increased night leg pain on 300 mg dose. -adjusted gabapentin to 300 / 300 / 600HS - had no pain on this regimen blood pressure appears to be overcontrolled on current home meds - see below (4) Fracture of phalanx of left foot, closed: Plan: Left foot fractures - acute/chronic 05/31/23 x-rays - IMPRESSION: 1. Mildly impacted fractures at the bases of the left second, fourth, and fifth proximal phalanges with likely intra-articular extension. These are at the similar location to the 02/13/2023 examination but appear to be acute fractures. 2. No acute fractures within the right foot. seen by Dr Singleton this admission - stiff-soled shoe or surgical shoe needed only; WBAT as tolerated with that shoe reinforced with patient today he has to wear the post-op shoe staff aware as well 25-OH vit D level normal at 42 repeat x-rays 06/24 show ongoing healing (5) HIV disease: Plan: Continue HAART Long-standing diagnosis Last CD4 count >500 Last HIV viral load was undetectable followed by [facility] during last visit he had a negative RPR (6) Type 2 diabetes mellitus: Plan: On glipizide and Invokana at home had hypoglycemia events at home Cont Novolog SSI and empaglifozin Control very acceptable No lows here A1c at goal 6.8% this admission (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 Patient will need placement. Cognitive status, orientation improved consistent with component of acute toxic metabolic encephalopathy / delirium present on admission that has cleared. Reduced gabapentin as discussed above and stopped oxybutynin which can also induce hallucinations and cognitive changes. B1, B12 normal. TSH normal fall 2022 speech therapy performed cognitive eval 06/11 - mild-mod impairment immediate memory, moderate impairment problem solving and abstract reasoning, recommended ongoing therapy in rehab setting for executive functioning deficits, recommended supervision for cognitive deficits has not needed any seroquel no recent hallucinations or visual disturbances (8) Abnormal brain MRI: Plan: neurology note from fall 2022 references the following brain MRI -- certainly these findings could be suggestive of a dementia process -- 2nd to long-standing HIV ? he will need neuro f/u for his Terrance-Bonnet Syndrome, abnormal brain MRI, memory issues (9) CAD (coronary artery disease), [place] coronary artery: Plan: 11/2016 - RCA stent 11/2017 - mid circumflex stent for 99% occlusion h/o LAD disease with collaterals cont asa, statin, zetia, lisinopril, metoprolol succ imdur stopped due to low BPs metoprolol succ dose also reduced with reduction in above 2 meds no anginal symptoms (10) Hypertension: Plan: controlled with complex cardiac med regimen as above (11) Idiopathic polyneuropathy: Plan: cont gabapentin TID - dose reduced 2/ no complaints of worsening neuropathic pain since reducing his dose (12) Wound, open, toe: Plan: multiple toe wounds present on admission cont local wound care w/ optifoams these are healing nicely cellulitis of these wounds -- rseolved s/p 7-day course of keflex -- abx are complete Plan DVT proph - lovenox once daily Based on psychiatric evaluation 05/31/23 he was unable to make his own decisions, however, cognition has improved significantly since that time. I had extensive conversation on 06/14 with the pt, his brother Jf, and his sister in law Viki at bedside today Pt also has a niece - Sary Duval - that lives in [facility] -- Dr Bowles spoke with her by phone last week extensive discussion held with Deirdre from case management today re: his disposition plan and the possibility of [facility] appreciate her assistance Admission and Anticipated Discharge Date Admission Date: May 31, 2023 Subjective no new events we did receive word today that [facility] rest [facility] - can likely accept Mr Bach sometime next week this would be a temporary housing situation for him until he can go to assisted living near [place] he denies any new complaints feels good eating ok Review of Systems 2 Review of Systems: pulm - no cough or dyspnea GI - no abd pain or N/V Cv - no chest pain Physical Exam 2 Physical Exam: gen - thin, NAD, sitting at side of bed - looks good neck - no JVD heart - RRR, s1 s2, no murmur lungs - CTA b/l abd - soft NT ND BS+; no HSM ext - no edema b/l; pulses 2+ b/l skin - multiple optifoams in place b/l feet vascular - pulses b/l feet 2+ psych - a/o x 3 Results & Data Results & Data Vital Signs (Past 12 Hours) Vital Signs Temp Pulse Pulse Resp BP BP Pulse Ox 06/15/23 19:28 36.5 C 82 18 120/71 96 06/15/23 15:18 36.6 C 78 18 107/65 94 06/15/23 08:30 68 20 109/73 98 O2 Del Method 06/15/23 19:28 Room Air 06/15/23 15:18 Room Air 06/15/23 08:30 Room Air Laboratory Results Laboratory Results - last 24 hr 06/14/23 06/15/23 06/15/23 20:21 07:36 11:33 POC Glucose 124 H 157 H 150 H 06/15/23 06/15/23 16:52 20:05 POC Glucose 121 H 203 H PG Care Time/CCT Total # of Minutes Spent Total Time Spent with Patient: Total time spent is greater than 50% in coordination of care (as documented) at patient's floor/unit and/or counseling patient: Coding Level of Care Code 10956 SUB INP/OBS CARE 05/24MIN Diagnoses Cognitive impairment R41.89 Rhabdomyolysis M62.82 Fall W19.XXXA Closed displaced fracture of proximal phalanx of lesser toe of left foot, initial encounter S92.512A Encounter type: initial encounter Fracture alignment: displaced Phalanx: proximal Toe: lesser toe HIV disease B20 Type 2 diabetes mellitus E11.9 Terrance Bonnet syndrome H53.16 Abnormal brain MRI R90.89 Coronary artery disease involving [place] coronary artery of [place] heart with angina pectoris I25.119 Associated angina: with unspecified angina [place] vs. transplanted heart: [place] heart Hypertension I10 Idiopathic polyneuropathy G60.9 Wound, open, toe S91.109A (4) Fracture of phalanx of left foot, closed Encounter type: initial encounter Fracture alignment: displaced Phalanx: p roximal Toe: lesser toe Qualified Code(s): S92.512A - Displaced fracture of proximal phalanx of left lesser toe(s), initial encounter for closed fracture (9) CAD (coronary artery disease), [place] coronary artery Associated angina: with unspecified angina [place] vs. transplanted heart: n ative heart Qualified Code(s): I25.119 - Atherosclerotic heart disease of [place] coronary artery with unspecified angina pectoris
--- NOTE | 2023-06-16 19:35 | Hospitalist Progress Note ---
Date of Service June 16, 2023 Assessment & Plan (1) Cognitive impairment: Plan: patient with some mild baseline cognitive impairment, some days worse than others - but of late appears to have relatively intact insight he does acknowledge that living alone has been challenging for him and that he has been struggling in his apartment in [place] he also acknowledges that THC & etoh use is contributing heavily to his problems when he is using both substances he becomes altered had superimposed encephalopathy when he got admitted - this is now resolved due to the cognitive impairment there is concern about him living alone thus assisted living is being pursued social work found a bed for him at a facility near [place] but the bed won't be available until 1-2 months from now he likely has a bed at [facility] next week which would be temporary until the assisted living facility in [place] is ready for him patient aware of above plan (2) Rhabdomyolysis: Plan: mild, present on admission -- resolved was found on the ground outside his apartment CPK was 900s upon admission treated with IV fluids CK normalized 2/6 labs (3) Fall: Plan: present at admission multiple falls and injuries at his home - multifactorial - chronic peripheral neuropathy, medications, gait instability, cannabis use cont PT/OT placement is being pursued he is amenable to moving to a more supportive situation. he acknowledges he's been doing poorly living alone past few months. B1 and B12 were normal, TSH normal gabapentin 800 mg tid home dose could be contributing to falls and cognitive problems. Had increased night leg pain on 300 mg dose. -adjusted gabapentin to 300 / 300 / 600HS - had no pain on this regimen blood pressure appears to be overcontrolled on current home meds - see below (4) Fracture of phalanx of left foot, closed: Plan: Left foot fractures - acute/chronic 05/31/23 x-rays - IMPRESSION: 1. Mildly impacted fractures at the bases of the left second, fourth, and fifth proximal phalanges with likely intra-articular extension. These are at the similar location to the 02/13/2023 examination but appear to be acute fractures. 2. No acute fractures within the right foot. seen by Dr Singleton this admission - stiff-soled shoe or surgical shoe needed only; WBAT as tolerated with that shoe reinforced with patient today he has to wear the post-op shoe staff aware as well 25-OH vit D level normal at 42 repeat x-rays 06/24 show ongoing healing (5) HIV disease: Plan: Continue HAART Long-standing diagnosis Last CD4 count >500 Last HIV viral load was undetectable followed by Yeni COSBY during last visit he had a negative RPR (6) Type 2 diabetes mellitus: Plan: On glipizide and Invokana at home had hypoglycemia events at home Cont Novolog SSI and empaglifozin Control very acceptable No lows here A1c at goal 6.8% this admission (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 Patient will need placement. Cognitive status, orientation improved consistent with component of acute toxic metabolic encephalopathy / delirium present on admission that has cleared. Reduced gabapentin as discussed above and stopped oxybutynin which can also induce hallucinations and cognitive changes. B1, B12 normal. TSH normal fall 2022 speech therapy performed cognitive eval 06/11 - mild-mod impairment immediate memory, moderate impairment problem solving and abstract reasoning, recommended ongoing therapy in rehab setting for executive functioning deficits, recommended supervision for cognitive deficits has not needed any seroquel no recent hallucinations or visual disturbances (8) Abnormal brain MRI: Plan: neurology note from fall 2022 references the following brain MRI -- certainly these findings could be suggestive of a dementia process -- 2nd to long-standing HIV ? he will need neuro f/u for his Terrance-Bonnet Syndrome, abnormal brain MRI, memory issues (9) CAD (coronary artery disease), hoopa coronary artery: Plan: 11/2016 - RCA stent 11/2017 - mid circumflex stent for 99% occlusion h/o LAD disease with collaterals cont asa, statin, zetia, lisinopril, metoprolol succ imdur stopped due to low BPs metoprolol succ dose also reduced with reduction in above 2 meds no anginal symptoms (10) Hypertension: Plan: controlled with complex cardiac med regimen as above (11) Idiopathic polyneuropathy: Plan: cont gabapentin TID - dose reduced 2/ no complaints of worsening neuropathic pain since reducing his dose (12) Wound, open, toe: Plan: multiple toe wounds present on admission cont local wound care w/ optifoams these are healing nicely cellulitis of these wounds -- rseolved s/p 7-day course of keflex -- abx are complete Plan DVT proph - lovenox once daily pt hoping his brother/sister in law reconsider taking him in for 1-2 months while awaiting the bed at [facility] near [place] (which is close by to his niece) he is hoping to have final answer from his brother tomorrow if they say no he will still go to [facility] early this week Admission and Anticipated Discharge Date Admission Date: May 31, 2023 Subjective pt reports he asked his brother & [id number] to reconsider taking him in for 1-2 months while the bed at the [facility] opens up they did not say no, but they haven't indicated yet their final answer if they do say no he will go to [facility] otherwise no new issues no new complaints walking with post-op shoe on L foot minimal discomfort had shower today feels well Review of Systems 2 Review of Systems: cv - no cp pulm - no dsypnea GI - no abd pain Physical Exam 2 Physical Exam: gen - thin, NAD, sitting at side of bed - looks good neck - no JVD heart - RRR, s1 s2, no murmur lungs - CTA b/l abd - soft NT ND BS+; no HSM ext - no edema b/l; pulses 2+ b/l skin - multiple optifoams in place b/l feet vascular - pulses b/l feet 2+ psych - a/o x 3 Results & Data Results & Data Vital Signs (Past 12 Hours) Vital Signs Temp Pulse Resp BP Pulse Ox O2 Del Method 06/16/23 15:48 36.7 C 96 H 17 136/69 95 Room Air 06/16/23 08:34 101/67 Laboratory Results Laboratory Results - last 24 hr 06/15/23 06/16/23 06/16/23 20:05 07:38 11:42 POC Glucose 203 H 194 H 226 H 06/16/23 16:38 POC Glucose 119 H PG Care Time/CCT Total # of Minutes Spent Total Time Spent with Patient: Total time spent is greater than 50% in coordination of care (as documented) at patient's floor/unit and/or counseling patient: Coding Level of Care Code 63879 SUB INP/OBS CARE 05/24MIN Diagnoses Cognitive impairment R41.89 Rhabdomyolysis M62.82 Fall W19.XXXA Closed displaced fracture of proximal phalanx of lesser toe of left foot, initial encounter S92.512A Encounter type: initial encounter Fracture alignment: displaced Phalanx: proximal Toe: lesser toe HIV disease B20 Type 2 diabetes mellitus E11.9 Terrance Bonnet syndrome H53.16 Abnormal brain MRI R90.89 Coronary artery disease involving hoopa coronary artery of hoopa heart with angina pectoris I25.119 Associated angina: with unspecified angina [place] vs. transplanted heart: hoopa heart Hypertension I10 Idiopathic polyneuropathy G60.9 Wound, open, toe S91.109A (4) Fracture of phalanx of left foot, closed Encounter type: initial encounter Fracture alignment: displaced Phalanx: p roximal Toe: lesser toe Qualified Code(s): S92.512A - Displaced fracture of proximal phalanx of left lesser toe(s), initial encounter for closed fracture (9) CAD (coronary artery disease), hoopa coronary artery Associated angina: with unspecified angina [place] vs. transplanted heart: n ative heart Qualified Code(s): I25.119 - Atherosclerotic heart disease of hoopa coronary artery with unspecified angina pectoris
--- NOTE | 2023-06-17 17:34 | Hospitalist Progress Note ---
Date of Service June 17, 2023 Assessment & Plan (1) Cognitive impairment: Plan: patient with some mild baseline cognitive impairment, some days worse than others - but of late has been a/o x 3 with very good insight into his entire situation he has had excellent recall of nearly all conversations from the last week he does acknowledge that living alone has been challenging for him and that he has been struggling in his apartment in [place] he also acknowledges that THC & etoh use is contributing heavily to his problems when he is using both substances he becomes altered had superimposed encephalopathy when he got admitted - this is resolved due to the cognitive impairment there is concern about him living alone thus assisted living is being pursued social work found a bed for him at a facility near [place] but the bed won't be available until 1-2 months from now he likely has a bed at [facility] next week which would be temporary until the assisted living facility in [place] is ready for him patient then asked his brother & [id number] who live locally if they would be willing to take him in for that 1-2 month period he has yet to hear from them about this we did discuss again today that living alone in his apartment is not prudent and not advised (2) Rhabdomyolysis: Plan: mild, present on admission -- resolved was found on the ground outside his apartment CPK was 900s upon admission treated with IV fluids CK normalized 2/6 labs (3) Fall: Plan: present at admission multiple falls and injuries at his home - multifactorial - chronic peripheral neuropathy, medications, gait instability, cannabis use, etoh use cont PT/OT he is amenable to moving to a more supportive situation. he acknowledges he's been doing poorly living alone past few months. we have found an assisted living facility near [place] (it is also in close proximity to his niece) but the bed won't be available for 1-2 months. B1 and B12 were normal, TSH normal gabapentin 800 mg tid home dose could have been contributing to falls and cognitive problems. thus, prior attending adjusted gabapentin to 300 / 300 / 600HS - has had no pain on this dosing and is tolerating such. (4) Fracture of phalanx of left foot, closed: Plan: Left foot fractures - acute/chronic 05/31/23 x-rays - IMPRESSION: 1. Mildly impacted fractures at the bases of the left second, fourth, and fifth proximal phalanges with likely intra-articular extension. These are at the similar location to the 02/13/2023 examination but appear to be acute fractures. 2. No acute fractures within the right foot. seen by Dr Singleton this admission - stiff-soled shoe or surgical shoe needed only; WBAT as tolerated with that shoe 25-OH vit D level normal at 42 repeat x-rays 06/24 show ongoing healing should f/u with podiatry post-discharge patient mentions he DOES have diabetic shoes at home -- asked him to call his brother & see if they could bring these in to hospital. he should wear them with walking. 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 Patient will need placement. Cognitive status, orientation improved consistent with component of acute toxic metabolic encephalopathy / delirium present on admission that has cleared. Reduced gabapentin as discussed above and stopped oxybutynin which can also induce hallucinations and cognitive changes. B1, B12 normal. TSH normal fall 2022 speech therapy performed cognitive eval 06/11 - mild-mod impairment immediate memory, moderate impairment problem solving and abstract reasoning, recommended ongoing therapy in rehab setting for executive functioning deficits, recommended supervision for cognitive deficits has not needed any seroquel no recent hallucinations or visual disturbances (8) Abnormal brain MRI: Plan: neurology note from fall 2022 references the following brain MRI -- certainly these findings could be suggestive of a dementia process -- 2nd to long-standing HIV ? he will need neuro f/u for his Terrance-Bonnet Syndrome, abnormal brain MRI, memory issues (9) CAD (coronary artery disease), [place]reafski coronary artery: Plan: 11/2016 - RCA stent 11/2017 - mid circumflex stent for 99% occlusion h/o LAD disease with collaterals cont asa, statin, zetia, lisinopril, metoprolol succ imdur stopped due to low BPs metoprolol succ dose also reduced with reduction in above 2 meds no anginal symptoms BPs very acceptable (10) Hypertension: Plan: controlled with complex cardiac med regimen as above (11) Idiopathic polyneuropathy: Plan: cont gabapentin TID - dose reduced 2/6 no complaints of worsening neuropathic pain since reducing his dose (12) Wound, open, toe: Plan: multiple toe wounds present on admission cont local wound care w/ optifoams these are healing nicely cellulitis of these wounds -- resolved s/p 7-day course of keflex -- abx are complete diabetic shoes needed - has them at home, they simply need to be brought in Plan DVT proph - lovenox once daily pt hoping his brother/sister in law reconsider taking him in for 1-2 months while awaiting the bed at assisted living near [place] (which is close by to his niece) he is hoping to have final answer from his brother soon if they say no he will still go to [facility] early this week Admission and Anticipated Discharge Date Admission Date: May 31, 2023 Subjective pt reports he had not heard from his brother/[id number] whether they had re- considered taking him in to their home for the next 1-2 months he also has been ruminating about his situation and asks if he can simply return to his apartment in [place] no new physical complaints eating well walking without difficulty minimal pain in feet Review of Systems 2 Review of Systems: gen - no fevers cv - no chest pain pulm - no dyspnea or SAINI GI - no abd pain - no LUTS Physical Exam 2 Physical Exam: gen - thin, NAD, sitting at side of bed neck - no JVD heart - RRR, s1 s2, no murmur lungs - CTA b/l ext - no edema b/l; pulses 2+ b/l skin - multiple optifoams in place b/l feet; I pulled back all optifoams today -- all ulcerations b/l feet (toes) unchanged psych - a/o x 3 with very good recall of recent events Results & Data Results & Data Vital Signs (Past 12 Hours) Vital Signs Temp Pulse Resp BP Pulse Ox O2 Del Method 06/17/23 15:12 36.7 C 88 16 108/67 97 Room Air 06/17/23 07:32 36.5 C 84 16 110/73 97 Room Air Laboratory Results Laboratory Results - last 24 hr 06/16/23 06/17/23 06/17/23 20:36 07:51 11:47 POC Glucose 137 H 180 H 121 H 06/17/23 16:37 POC Glucose 123 H PG Care Time/CCT Total # of Minutes Spent Total Time Spent with Patient: Total time spent is greater than 50% in coordination of care (as documented) at patient's floor/unit and/or counseling patient: Coding Level of Care Code 28110 SUB INP/OBS CARE 05/24MIN Diagnoses Cognitive impairment R41.89 Rhabdomyolysis M62.82 Fall W19.XXXA Closed displaced fracture of proximal phalanx of lesser toe of left foot, initial encounter S92.512A Encounter type: initial encounter Fracture alignment: displaced Phalanx: proximal Toe: lesser toe HIV disease B20 Type 2 diabetes mellitus E11.9 Terrance Bonnet syndrome H53.16 Abnormal brain MRI R90.89 Coronary artery disease involving andreafski coronary artery of andreafski heart with angina pectoris I25.119 Associated angina: with unspecified angina [place] vs. transplanted heart: andreafski heart Hypertension I10 Idiopathic polyneuropathy G60.9 Wound, open, toe S91.109A (4) Fracture of phalanx of left foot, closed Encounter type: initial encounter Fracture alignment: displaced Phalanx: p roximal Toe: lesser toe Qualified Code(s): S92.512A - Displaced fracture of proximal phalanx of left lesser toe(s), initial encounter for closed fracture (9) CAD (coronary artery disease), andreafski coronary artery Associated angina: with unspecified angina [place] vs. transplanted heart: n ative heart Qualified Code(s): I25.119 - Atherosclerotic heart disease of andreafski coronary artery with unspecified angina pectoris
[2023-06-18 07:52] LABS: Hemoglobin 14.8 g/dl (14.0-18.0); Mean Corpuscular Hemoglobin 33.2 pg (25.0-34.0); Mean Corpuscular Hgb Conc 34.4 g/dL (32.0-36.0); Mean Corpuscular Volume 96.4 fL (80.0-100.0); Mean Platelet Volume 9.6 fL (9.4-12.4); Platelet Count 225 K/uL (130-400); RDW Coefficient of Variation 12.5 % (11.5-14.5); RDW Standard Deviation 44.3 fL (36.4-46.3); Red Blood Count 4.46 M/uL (4.70-6.10); White Blood Count 5.63 K/ul (4.8-10.8)
[2023-06-18 08:13] LABS: BUN Creatinine Ratio 25.9 (10-20); Calcium 9.7 mg/dl (8.6-10.3); Creatinine Clr Calc Pharmacy 63.4 ml/min; Est GFR (African American) 77.3 ml/min; Est GFR (Non-African American) 66.7 ml/min; Potassium 4.4 mmol/L (3.5-5.1)
--- NOTE | 2023-06-18 18:42 | Hospitalist Progress Note ---
Date of Service June 18, 2023 Assessment & Plan (1) Cognitive impairment: Plan: patient with some mild baseline cognitive impairment, some days worse than others - but of late has been a/o x 3 with very good insight into his entire situation he has had excellent recall of nearly all conversations from the last week he does acknowledge that living alone has been challenging for him and that he has been struggling in his apartment in [place] he also acknowledges that THC & Etoh use is contributing heavily to his problems when he is using both substances he becomes altered had superimposed encephalopathy when he got admitted - this is resolved was likely toxic encephalopathy due to THC & Etoh use due to the cognitive impairment there is concern about him living alone thus assisted living is being pursued social work found a bed for him at a facility near [place] but the bed won't be available until 1-2 months from now he has a bed at [facility] THIS SUNDAY and the director of [place] will pick him up Sunday am patient will need to return to his apartment to berry picker his chronic medicines, clothes, other personal items (2) Rhabdomyolysis: Plan: mild, present on admission -- resolved was found on the ground outside his apartment CPK was 900s upon admission treated with IV fluids CK normalized 2/6 labs (3) Fall: Plan: present at admission multiple falls and injuries at his home - multifactorial - chronic peripheral neuropathy, medications, gait instability, cannabis use, etoh use cont PT/OT he is amenable to moving to a more supportive situation. he acknowledges he's been doing poorly living alone past few months. we have found an assisted living facility near [place] (it is also in close proximity to his niece) but the bed won't be available for 1-2 months. B1 and B12 were normal, TSH normal gabapentin 800 mg tid home dose could have been contributing to falls and cognitive problems. thus, prior attending adjusted gabapentin to 300 / 300 / 600HS - has had no pain on this dosing and is tolerating such. (4) Fracture of phalanx of left foot, closed: Plan: Left foot fractures - acute/chronic 05/31/23 x-rays - IMPRESSION: 1. Mildly impacted fractures at the bases of the left second, fourth, and fifth proximal phalanges with likely intra-articular extension. These are at the similar location to the 02/13/2023 examination but appear to be acute fractures. 2. No acute fractures within the right foot. seen by Dr Singleton this admission - stiff-soled shoe or surgical shoe needed only; WBAT as tolerated with that shoe 25-OH vit D level normal at 42 repeat x-rays 06/24 show ongoing healing should f/u with podiatry post-discharge patient mentions he DOES have diabetic shoes at home -- asked him to call his brother & see if they could bring these in to hospital. he should wear them with walking. 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 Patient will need placement. Cognitive status, orientation improved consistent with component of acute toxic metabolic encephalopathy / delirium present on admission that has cleared. Reduced gabapentin as discussed above and stopped oxybutynin which can also induce hallucinations and cognitive changes. B1, B12 normal. TSH normal fall 2022 speech therapy performed cognitive eval 06/11 - mild-mod impairment immediate memory, moderate impairment problem solving and abstract reasoning, recommended ongoing therapy in rehab setting for executive functioning deficits, recommended supervision for cognitive deficits has not needed any seroquel no recent hallucinations or visual disturbances (8) Abnormal brain MRI: Plan: neurology note from fall 2022 references the following brain MRI -- certainly these findings could be suggestive of a dementia process -- 2nd to long-standing HIV ? he will need neuro f/u for his Terrance-Bonnet Syndrome, abnormal brain MRI, memory issues (9) CAD (coronary artery disease), [place] coronary artery: Plan: 11/2016 - RCA stent 11/2017 - mid circumflex stent for 99% occlusion h/o LAD disease with collaterals cont asa, statin, zetia, lisinopril, metoprolol succ imdur stopped due to low BPs metoprolol succ dose also reduced with reduction in above 2 meds he has had no anginal symptoms BPs acceptable (10) Hypertension: Plan: controlled with complex cardiac med regimen as above (11) Idiopathic polyneuropathy: Plan: cont gabapentin TID - dose reduced 2/6 no complaints of worsening neuropathic pain since reducing his dose (12) Wound, open, toe: Plan: multiple toe wounds present on admission cont local wound care w/ optifoams these are healing nicely cellulitis of these wounds -- resolved s/p 7-day course of keflex -- abx are complete diabetic shoes needed - has them at home, they simply need to be brought in recommend f/u with [facility] post-discharge Plan DVT proph - lovenox once daily dispo - [facility] - 06/20 updated pt's niece by phone this evening with plan of care Admission and Anticipated Discharge Date Admission Date: May 31, 2023 Subjective pt reports that his brother & sister in law have declined to take him in to their home locally thus, plan is to d/c to [facility] on Sunday am the director of [facility] will be picking him up on Sunday director will bring Salas to his apartment in [place] to berry picker medicines, clothes, etc Salas states he has refills of his HIV meds at his apartment denies any new complaints Review of Systems 2 Review of Systems: gen - feels well, eating well cv - no chest pain pulm - no dyspnea GI - no abd pain; moving bowels musculo - no pain in either foot Physical Exam 2 Physical Exam: gen - thin, NAD, sitting at side of bed - looks good today mouth - 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; MMM; no thrush neck - no JVD heart - RRR, s1 s2, no murmur lungs - CTA b/l ext - no edema b/l; pulses 2+ b/l skin - multiple optifoams in place b/l feet psych - a/o x 3 Results & Data Results & Data Vital Signs (Past 12 Hours) Vital Signs Temp Pulse Resp BP Pulse Ox O2 Del Method 06/18/23 16:37 36.8 C 81 16 107/67 97 Room Air 06/18/23 08:04 36.4 C L 71 16 101/69 98 Room Air Laboratory Results Laboratory Results - last 24 hr 06/17/23 06/18/23 06/18/23 20:44 07:20 07:25 WBC 5.63 RBC 4.46 L Hgb 14.8 Hct 43.0 MCV 96.4 MCH 33.2 MCHC 34.4 RDW Std Deviation 44.3 RDW Coeff of Zunilda 12.5 Plt Count 225 MPV 9.6 Sodium 138 Potassium 4.4 Chloride 103 Carbon Dioxide 29 Anion Gap 6 BUN 29 H Creatinine 1.12 Est Cr Clr Drug Dosing 63.4 Est GFR ( Amer) 77.3 Est GFR (Non-Af Amer) 66.7 BUN/Creatinine Ratio 25.9 H Glucose 154 H POC Glucose 147 H 157 H Calcium 9.7 06/18/23 06/18/23 11:33 16:24 WBC RBC Hgb Hct MCV MCH MCHC RDW Std Deviation RDW Coeff of Zunilda Plt Count MPV Sodium Potassium Chloride Carbon Dioxide Anion Gap BUN Creatinine Est Cr Clr Drug Dosing Est GFR ( Amer) Est GFR (Non-Af Amer) BUN/Creatinine Ratio Glucose POC Glucose 214 H 126 H Calcium PG Care Time/CCT Total # of Minutes Spent Total Time Spent with Patient: Total time spent is greater than 50% in coordination of care (as documented) at patient's floor/unit and/or counseling patient: Coding Level of Care Code 94931 SUB INP/OBS CARE 05/24MIN Diagnoses Cognitive impairment R41.89 Rhabdomyolysis M62.82 Fall W19.XXXA Closed displaced fracture of proximal phalanx of lesser toe of left foot, initial encounter S92.512A Encounter type: initial encounter Fracture alignment: displaced Phalanx: proximal Toe: lesser toe HIV disease B20 Type 2 diabetes mellitus E11.9 Terrance Bonnet syndrome H53.16 Abnormal brain MRI R90.89 Coronary artery disease involving [place] coronary artery of [place] heart with angina pectoris I25.119 Associated angina: with unspecified angina [place] vs. transplanted heart: [place] heart Hypertension I10 Idiopathic polyneuropathy G60.9 Wound, open, toe S91.109A (4) Fracture of phalanx of left foot, closed Encounter type: initial encounter Fracture alignment: displaced Phalanx: p roximal Toe: lesser toe Qualified Code(s): S92.512A - Displaced fracture of proximal phalanx of left lesser toe(s), initial encounter for closed fracture (9) CAD (coronary artery disease), [place] coronary artery Associated angina: with unspecified angina [place] vs. transplanted heart: n ative heart Qualified Code(s): I25.119 - Atherosclerotic heart disease of [place] coronary artery with unspecified angina pectoris
[2023-06-18] MEDS: CARBAMIDE PEROXIDE 6.5% 15 ML BTL OTB SCH (22:05)
--- NOTE | 2023-06-19 16:16 | Hospitalist Progress Note ---
Date of Service June 19, 2023 Assessment & Plan (1) Cognitive impairment: Plan: patient with some mild baseline cognitive impairment, some days worse than others - but of late has been a/o x 3 with very good insight into his entire situation he has had excellent recall of nearly all conversations from the last week he does acknowledge that living alone has been challenging for him and that he has been struggling in his apartment in [place] he also acknowledges that THC & Etoh use is contributing heavily to his problems when he is using both substances he becomes altered had superimposed encephalopathy when he got admitted - this is resolved was likely toxic encephalopathy due to THC & Etoh use due to the cognitive impairment there is concern about him living alone thus assisted living is being pursued social work found a bed for him at a facility near [place] but the bed won't be available until 1-2 months from now he has a bed at [facility] THIS SUNDAY and the director of [facility] will pick him up Sunday am patient will need to return to his apartment to supervisor picking crew his chronic medicines, clothes, other personal items -discussed with child caregiver today, confirmed discharge plans, ordered discharge prescriptions, discussed medication changes with Salas (2) Rhabdomyolysis: Plan: mild, present on admission -- resolved was found on the ground outside his apartment CPK was 900s upon admission treated with IV fluids CK normalized 2/6 labs (3) Fall: Plan: present at admission multiple falls and injuries at his home - multifactorial - chronic peripheral neuropathy, medications, gait instability, cannabis use, etoh use cont PT/OT he is amenable to moving to a more supportive situation. he acknowledges he's been doing poorly living alone past few months. we have found an assisted living facility near [place] (it is also in close proximity to his niece) but the bed won't be available for 1-2 months. B1 and B12 were normal, TSH normal gabapentin 800 mg tid home dose could have been contributing to falls and cognitive problems. gabapentin reduced to 300 / 300 / 600HS - has had no pain on this dosing and is tolerating such. (4) Fracture of phalanx of left foot, closed: Plan: Left foot fractures - acute/chronic 05/31/23 x-rays - IMPRESSION: 1. Mildly impacted fractures at the bases of the left second, fourth, and fifth proximal phalanges with likely intra-articular extension. These are at the similar location to the 02/13/2023 examination but appear to be acute fractures. 2. No acute fractures within the right foot. seen by Dr Singleton this admission - stiff-soled shoe or surgical shoe needed only; WBAT as tolerated with that shoe 25-OH vit D level normal at 42 repeat x-rays 06/24 show ongoing healing should f/u with podiatry post-discharge Dr. Singleton patient mentions he DOES have diabetic shoes at home - he should wear them with walking. 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 Patient will need placement. Cognitive status, orientation improved consistent with component of acute toxic metabolic encephalopathy / delirium present on admission that has cleared. Reduced gabapentin as discussed above B1, B12 normal. TSH normal fall 2022 speech therapy performed cognitive eval 06/11 - mild-mod impairment immediate memory, moderate impairment problem solving and abstract reasoning, recommended ongoing therapy in rehab setting for executive functioning deficits, recommended supervision for cognitive deficits no recent hallucinations or visual disturbances (8) Abnormal brain MRI: Plan: neurology note from fall 2022 references the following brain MRI -- certainly these findings could be suggestive of a dementia process -- 2nd to long-standing HIV ? he will need neuro f/u for his Terrance-Bonnet Syndrome, abnormal brain MRI, memory issues -recommend outpatient neurology referral after he relocates closer to [place] (9) CAD (coronary artery disease), [place] coronary artery: Plan: 11/2016 - RCA stent 11/2017 - mid circumflex stent for 99% occlusion h/o LAD disease with collaterals cont asa, statin, zetia, lisinopril, metoprolol succ imdur stopped due to low BPs metoprolol succ dose also reduced with reduction in above 2 meds he has had no anginal symptoms BPs acceptable (10) Hypertension: Plan: controlled with complex cardiac med regimen as above (11) Idiopathic polyneuropathy: Plan: cont gabapentin TID - dose reduced 06/05 no complaints of worsening neuropathic pain since reducing his dose (12) Wound, open, toe: Plan: multiple toe wounds present on admission cont local wound care w/ optifoams these are healing nicely cellulitis of these wounds -- resolved s/p 7-day course of keflex -- abx are complete Plan DVT proph - lovenox once daily dispo - [facility] - Sunday, 06/20 called his ROSS Drew back 06/19, left voicemail Admission and Anticipated Discharge Date Admission Date: May 31, 2023 Subjective Salas is doing ok, toes are continuing to heal, reports his meds are in blister packs at home uses mail order pharmacy Physical Exam 2 Physical Exam: PHYSICAL EXAMINATION Last 24h vital signs reviewed, see documentation in flowsheet General: comfortable appearing, no distress, sitting on EOB HEENT: Normocephalic, atraumatic, pupils round and equal, sclerae anicteric, no conjunctival injection, moist mucus membranes Lungs: Normal respiratory effort Heart: Abdomen: nondistended Extremities: Warm, dry, well-perfused. No extremity edema. Multiple wounds on dorsal toes - healing well, only small wounds remain, no drainage or surrounding cellulitis Neuro: Alert and oriented x hospital, situation, poor insight and judgment, face symmetric, moves 4 extremities well - unchanged Psych: Normal affect and behavior Results & Data Results & Data Vital Signs (Past 12 Hours) Vital Signs Temp Pulse Resp BP Pulse Ox O2 Del Method 06/19/23 15:10 36.4 C L 85 16 112/67 98 Room Air 06/19/23 08:02 36.4 C L 67 16 100/65 98 Room Air Laboratory Results 06/18/23 07:20 06/18/23 07:20 PG Care Time/CCT Total # of Minutes Spent Total Time Spent with Patient: I personally spent: 35 minutes today on clinical care activities including: reviewing chart notes and vital signs discussion with child caregiver examining and counseling the patient coordinating care for discharge - discharge orders and prescriptions, instructions writing orders documentation Coding Level of Care Code 50821 SUB INP/OBS CARE 2/35MIN Diagnoses Cognitive impairment R41.89 Rhabdomyolysis M62.82 Fall W19.XXXA Closed displaced fracture of proximal phalanx of lesser toe of left foot, initial encounter S92.512A Encounter type: initial encounter Toe: lesser toe Phalanx: proximal Fracture alignment: displaced HIV disease B20 Type 2 diabetes mellitus E11.9 Terrance Bonnet syndrome H53.16 Abnormal brain MRI R90.89 Coronary artery disease involving [place] coronary artery of [place] heart with angina pectoris I25.119 [place] vs. transplanted heart: [place] heart Associated angina: with unspecified angina Hypertension I10 Idiopathic polyneuropathy G60.9 Wound, open, toe S91.109A (4) Fracture of phalanx of left foot, closed Encounter type: initial encounter Toe: lesser toe Phalanx: proximal F racture alignment: displaced Qualified Code(s): S92.512A - Displaced fracture of proximal phalanx of left lesser toe(s), initial encounter for closed fracture (9) CAD (coronary artery disease), [place] coronary artery [place] vs. transplanted heart: [place] heart Associated angina: with unspecified angina Qualified Code(s): I25.119 - Atherosclerotic heart disease of [place] coronary artery with unspecified angina pectoris
--- NOTE | 2023-06-20 07:15 | Discharge Summary ---
Date of Service June 20, 2023 Admission HPI Per Admitting Provider This is a 59-year-old male with a previous history of syphilis, HIV on HAART, hypertension, type 2 diabetes, polyneuropathy anxiety depression, who was brought to the hospital today after he was found wandering around his apartment area. He was found down, suggesting he fell and was there for Epidural time, he presented with multiple abrasions on the toes and on his face. Upon arrival at the emergency department, he was hypothermic, temperature was 34.4 he was placed on Dafne hugger. CT scan of the head and chest x-ray did not show any acute pathology however x-ray of the foot showed left foot fracture which with the in the previous hospital admission in January 2023. During his last admission, he was assessed by psychiatry because of his visual hallucinations. 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 Surprisingly he had a mini cognitive exam in July 2021 was normal on the Mini-Mental exam score of 28. Patient lives alone by himself however upon further questioning he stated he has Meals on Wheels and makes food for himself and has some family members who occasionally visits him. Office of aging has been contacted and due to inability of the patient to take care of himself at home he will be admitted to the hospital. Principal Diagnosis acute toxic metabolic encephalopathy Discharge Exam PHYSICAL EXAMINATION Last 24h vital signs reviewed, see documentation in flowsheet General: comfortable appearing, no distress, sitting on EOB HEENT: Normocephalic, atraumatic, pupils round and equal, sclerae anicteric, no conjunctival injection, moist mucus membranes Lungs: Normal respiratory effort Heart: Abdomen: nondistended Extremities: Warm, dry, well-perfused. No extremity edema. Multiple wounds on dorsal toes - dressed Neuro: Alert and oriented x hospital, situation, face symmetric, moves 4 extremities well - unchanged Psych: Normal affect and behavior Discharge Data Allergies Allergy/AdvReac Type Severity Reaction Status Date / Time Penicillins Allergy Mild RASH Verified 03/07/23 14:28 metformin AdvReac Intermediate Diarrhea Verified 03/07/23 14:28 Consultations 05/31/23 07:18 ED Decision to Admit Stat 05/31/23 08:51 Consult Podiatry Routine 05/31/23 09:46 Consult Psychiatry Routine Ordered Studies 05/31/23 05:52 CT head/brain wo con Stat Head CT 05/31/23 05:52 CT head/brain wo con CLINICAL HISTORY: altered mental status Technique: Contiguous axial CT images of the head were acquired from the base of the skull to the vertex without intravenous contrast administration. Images were viewed in brain, subdural and bone windows. Automated dose lowering techniques and/or adjustment according to patient size were utilized for this exam. Comparison: Comparison is made to CT head 03/02/2023 Findings: Areas of decreased attenuation are present in the periventricular and subcortical white matter bilaterally consistent with small vessel ischemic disease. Generalized cerebral atrophy with commensurate enlargement of the ventricles, sulci, and cisterns is also present. There is no acute intracranial hemorrhage or evidence of acute territorial infarction. No shift of the midline structures, mass effect, or extra-axial abnormalities are shown. Atherosclerotic calcifications are present in the intracranial segments of the internal carotid arteries. Calcifications of the falx noted. Imaged portions of the paranasal sinuses and mastoid air cells are clear. The orbits appear normal. There are no acute fractures of the calvaria or scalp swelling. Impression: No acute intracranial hemorrhage, no evidence of acute territorial infarction or other acute intracranial disease process. ACT 112: Negative or not required by law. Electronically signed by: Charlie Cheung M.D. 05/31/2023 6:52 AM Chest X-Ray 05/31/23 06:45 XR chest 1V portable CLINICAL HISTORY: AMS, fall TECHNIQUE: Single frontal radiograph of the chest was obtained. Comparison: Comparison is made to chest radiograph 03/02/2023 FINDINGS: No lines and tubes are seen. The cardiomediastinal silhouette is normal. The lungs are clear. No evidence of pleural effusion or pneumothorax. IMPRESSION: No acute chest disease. ACT 112: Negative or not required by law. Electronically signed by: Charlie Cheung M.D. 05/31/2023 7:35 AM Foot X-Ray 05/31/23 06:59 XR foot LT min 3V routine, XR foot RT min 3V routine CLINICAL HISTORY: fall, abrasions to toes. Bilateral foot pain. COMPARISON STUDY: Bilateral feet 02/13/2023. FINDINGS: Mildly impacted fractures at the bases of the left second, fourth, and fifth proximal phalanges with likely intra-articular extension. These are at the similar location to the 02/13/2023 examination but appear to be acute fractures. No additional fractures within the left foot. No acute fractures within the right foot. Vascular calcifications are noted. The Lisfranc joints are intact. IMPRESSION: 1. Mildly impacted fractures at the bases of the left second, fourth, and fifth proximal phalanges with likely intra-articular extension. These are at the similar location to the 02/13/2023 examination but appear to be acute fractures. 2. No acute fractures within the right foot. ACT 112: Negative or not required by law. Electronically signed by: Isaac Alexander M.D. 05/31/2023 7:47 AM Foot X-Ray 05/31/23 06:59 XR foot LT min 3V routine, XR foot RT min 3V routine CLINICAL HISTORY: fall, abrasions to toes. Bilateral foot pain. COMPARISON STUDY: Bilateral feet 02/13/2023. FINDINGS: Mildly impacted fractures at the bases of the left second, fourth, and fifth proximal phalanges with likely intra-articular extension. These are at the similar location to the 02/13/2023 examination but appear to be acute fractures. No additional fractures within the left foot. No acute fractures within the right foot. Vascular calcifications are noted. The Lisfranc joints are intact. IMPRESSION: 1. Mildly impacted fractures at the bases of the left second, fourth, and fifth proximal phalanges with likely intra-articular extension. These are at the similar location to the 02/13/2023 examination but appear to be acute fractures. 2. No acute fractures within the right foot. ACT 112: Negative or not required by law. Electronically signed by: Isaac Alexander M.D. 05/31/2023 7:47 AM Foot X-Ray 06/14/23 09:28 XR foot LT min 3V routine CLINICAL HISTORY: multiple fractures, interval change/assess healing. Follow-up left toe fractures. COMPARISON STUDY: Left foot 05/31/2023. FINDINGS: There again noted impacted fractures at the bases of the left second, fourth, and fifth proximal phalanges. These likely demonstrate intra-articular extension. Mild sclerosis of the fracture site suggests interval healing. The alignment remains unchanged. Soft tissue swelling at the MTP joints and toes. Small ossific density at the lateral base of the first toe proximal phalanx may represent an age-indeterminate fracture. Vascular calcifications are noted. The Lisfranc joint is intact. No dislocation. IMPRESSION: 1. Interval mild healing associated with the fractures at the base of the left second, fourth, and fifth proximal phalanges. 2. Small ossific density at the lateral base of the first toe proximal phalanx which may represent an age-indeterminate fracture. ACT 112: Negative or not required by law. Electronically signed by: Isaac Alexander M.D. 06/14/2023 10:58 AM Hospital Course (1) Acute encephalopathy: Salas is a 67 y/o with well controlled HIV, polyneuropathy, visual and hearing loss and DM type 2 who was brought in to the ED after being found down outside his apartment in the cold, confused, with wounds on dorsum of multiple toes bilaterally. He has had several admissions and ED presentations this fall/winter where he has become confused and has had multiple falls. 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 Additional contributing factors include hypoglycemia episodes, medication side effects, polyneuropathy, and cannabis and alcohol use. He was evaluated by inpatient psychiatrist early in this hospital stay and at that time was deemed to lack decisional capacity. With time, adjustments in medications, improved glycemic control, avoidance of neurotoxins his cognitive status did improve a lot. He had cognitive eval by speech therapist 06/11 - mild-mod impairment immediate memory, moderate impairment problem solving and abstract reasoning, recommended ongoing therapy in rehab setting for executive functioning deficits, recommended supervision for cognitive deficits. At this point Salas is no longer safe to live alone, but will do well in a more supervised setting and with shared decision making with his family's assistance. (2) Cognitive impairment: patient with some mild baseline cognitive impairment, some days worse than others - but of late has been a/o x 3 with very good insight into his entire situation he has had excellent recall of nearly all conversations from the last week he does acknowledge that living alone has been challenging for him and that he has been struggling in his apartment in [place] he also acknowledges that THC & Etoh use is contributing heavily to his problems when he is using both substances he becomes altered had superimposed encephalopathy when he got admitted - this is resolved due to the cognitive impairment there is concern about him living alone thus assisted living is being pursued social work found a bed for him at a facility near [place] but the bed won't be available until 1-2 months from now, meanwhile he has a bed at [facility] (3) Rhabdomyolysis: mild, present on admission -- resolved was found on the ground outside his apartment CPK was 900s upon admission treated with IV fluids CK normalized 2/6 labs (4) Fall: present at admission multiple falls and injuries at his home - multifactorial - chronic peripheral neuropathy, medications, gait instability, cannabis use, etoh use B1 and B12 were normal, TSH normal gabapentin 800 mg tid home dose could have been contributing to falls and cognitive problems. gabapentin reduced to 300 / 300 / 600HS - has had no pain on this dosing and is tolerating such. (5) Fracture of phalanx of left foot, closed: Left foot fractures - acute/chronic 05/31/23 x-rays - IMPRESSION: 1. Mildly impacted fractures at the bases of the left second, fourth, and fifth proximal phalanges with likely intra-articular extension. These are at the similar location to the 02/13/2023 examination but appear to be acute fractures. 2. No acute fractures within the right foot. seen by Dr Singleton this admission - stiff-soled shoe or surgical shoe needed only; WBAT as tolerated with that shoe 25-OH vit D level normal at 42 repeat x-rays 06/24 show ongoing healing should f/u with podiatry post-discharge Dr. Singleton patient mentions he DOES have diabetic shoes at home - he should wear them with walking. (6) HIV disease: Continue HAART Long-standing diagnosis Last CD4 count >500 Last HIV viral load was undetectable followed by Yeni COSBY during last visit he had a negative RPR (7) Type 2 diabetes mellitus: On glipizide and Invokana at home had hypoglycemia events at home, low vision and inconsistent oral intake contributing factors A1c at goal 6.8% this admission (8) Terrance Bonnet syndrome: Cognitive status, orientation improved consistent with component of acute toxic metabolic encephalopathy / delirium present on admission that has cleared. Reduced gabapentin as discussed above B1, B12 normal. TSH normal fall 2022 speech therapy performed cognitive eval 06/11 - mild-mod impairment immediate memory, moderate impairment problem solving and abstract reasoning, recommended ongoing therapy in rehab setting for executive functioning deficits, recommended supervision for cognitive deficits no recent hallucinations or visual disturbances (9) Abnormal brain MRI: neurology note from fall3 references the following brain MRI -- certainly these findings could be suggestive of a dementia process -- 2nd to long-standing HIV ? he will need neuro f/u for his Terrance-Bonnet Syndrome, abnormal brain MRI, memory issues -recommend outpatient neurology referral after he relocates closer to [place] (10) CAD (coronary artery disease), [place] coronary artery: 11/2016 - RCA stent 11/2017 - mid circumflex stent for 99% occlusion h/o LAD disease with collaterals cont asa, statin, zetia, lisinopril, metoprolol succ BP was overcontrolled in the hospital on his home doses, because he has lost a significant amount of weight in past year imdur stopped due to low BPs metoprolol succ dose also reduced with reduction in above 2 meds he has had no anginal symptoms BPs acceptable (11) Hypertension: controlled with complex cardiac med regimen as above (12) Idiopathic polyneuropathy: cont gabapentin TID - dose reduced / no complaints of worsening neuropathic pain since reducing his dose (13) Wound, open, toe: multiple toe wounds present on admission with cellulitis of these wounds -- resolved s/p 7-day course of keflex cont local wound care w/ optifoams these are healing nicely Total Time Total Time Spent Total Time Spent (In Minutes): I personally spent: 35 minutes today on clinical care activities including: reviewing chart notes and vital signs examining and counseling the patient writing orders documentation Discharge Plan Discharge Items Patient Disposition: Personal Custodial Reason For Visit: FALL, FRACTURE Discharge Diagnosis: Falls, cognitive impairment, left foot fractures, toe wounds Activity: Per Instructions section Weightbearing: Full weightbearing Weightbearing Comment: wear surgical shoe on left foot Non-emergency contact: Primary Care Provider Call non-emergency contact if: you have any medication questions Follow-up/Referrals: Wendy Garcia MD [Primary Care Provider] - 06/27/23 11:00 am (APPOINTMENT WITH [facility]EP[facility]) Gianluca Singleton, DPM, MS [Physician] - Diet: Carb Consistent or DM2 Addtl Attending Provider Instructions: For your foot fracture - wear surgical shoe on L foot, may weightbear as tolerated -follow up with computer programming professor Dr. Singleton -otherwise wear diabetic shoes to protect your feet from injury Wound care instructions for toes: To any open areas on toes [place] with Betadine allow to dry and cover with optifoams. We made a few medication changes Isosorbide was STOPPED because your blood pressure was too low on this med - this one is in a separate bottle (not in the blister packs) Metoprolol was REDUCED because your blood pressure was too low - you will need to take the old tablets out of the blister packs and use the new prescription I sent Gabapentin was REDUCED because the dose was too high and contributing to confusion and falls - you will need to take the old tablets out of the blister packs and use the new prescription I sent The pharmacy at [facility] should be able to help identify the medications above so that you can remove them from the blister packs Follow up in primary care as soon as possible to check on diabetes and for ongoing refills of your medications Follow up with [facility] infectious disease doctor José Mccullough as scheduled Note: your Biktkatevy is a light brown oval tablet with "GSI" stamped on one side and "1383" on the other side Pending Studies at Discharge: No Stand-Alone Forms: My [facility], Smoking Cessation Skilled Items Patient informed of condition?: Yes DNR: No Discharge Level of Care: Other Communicable Disease: No Discharge Prognosis: Stable Lines: None Urinary Catheter: No Medications and DC Order Prescriptions: New metoprolol succinate 25 mg Tablet Extended Release 24 Hr 25 mg PO QAM Qty: 30 0RF gabapentin 300 mg Capsule See Rx Instructions .ROUTE .COMPLEX Qty: 120 0RF Rx Instructions: 1 cap in AM, 1 cap at midday, 2 caps in evening Continued venlafaxine 225 mg tablet extended release 24hr 225 mg PO QAM Qty: 90 3RF (DME) blood-glucose meter [OneTouch Ultra2 Meter] [facility] See Rx Instructions .ROUTE .MEDSUPPLY Qty: 1 0RF Rx Instructions: Use to test blood sugars twice a day (DME) lancets [OneTouch UltraSoft Lancets] [facility] See Dose Instructions .ROUTE .MEDSUPPLY Qty: 200 3RF Dose Instruction: As directed Rx Instructions: test 2 times daily (DME) OneTouch Ultra Test Strip See Rx Instructions .Route Qty: 200 3RF Rx Instructions: Test blood sugars twice a day atorvastatin 40 mg tablet 40 mg PO HS Qty: 84 3RF ezetimibe [Zetia] 10 mg tablet 10 mg PO HS Qty: 84 3RF oxybutynin chloride 5 mg tablet extended release 24hr 5 mg PO QAM Qty: 84 3RF pantoprazole 40 mg tablet,delayed release (DR/EC) 40 mg PO QAM Qty: 84 3RF glipizide 10 mg tablet 10 mg PO BID Qty: 180 1RF cyanocobalamin (vitamin B-12) [Vitamin B-12] 1,000 mcg tablet 1,000 mcg PO QAM Qty: 30 11RF Jardiance 25 mg tablet 25 mg PO QAM Qty: 30 5RF Ensure Original Liquid 1 ea PO DAILY Qty: 7110 11RF Rx Instructions: unable to verify with pharmacy 05/31/23 aspirin 81 mg tablet,delayed release (DR/EC) 81 mg PO HS Qty: 30 Rx Instructions: unable to verify with pharmacy 05/31/23 cholecalciferol (vitamin D3) 5,000 unit tablet 5,000 units PO QAM Rx Instructions: unable to verify with pharmacy 05/31/23 nitroglycerin 0.4 mg tablet, sublingual 0.4 mg SL Q5M PRN (Reason: chest pain) Qty: 30 Rx Instructions: dispensed last 2021 vit A-vit C-vit [id number] [id number] tablet 1 tab PO PM Rx Instructions: unable to verify with pharmacy 05/31/23 Biktarvy 50-200-25 mg tablet 1 tab PO DAILY lisinopril 2.5 mg tablet 2.5 mg PO QAM Rx Instructions: TAKE 1 TABLET BY MOUTH DAILY bupropion HCl 300 mg tablet extended release 24 hr 300 mg PO QAM Rx Instructions: take with 150 mg to equal 450 mg bupropion HCl 150 mg tablet extended release 24 hr 150 mg PO QAM Rx Instructions: take with 300 mg to equal 450 mg aripiprazole 2 mg tablet 2 mg PO HS Discontinued metoprolol succinate 50 mg tablet extended release 24 hr 50 mg PO QAM Qty: 90 3RF isosorbide mononitrate 30 mg tablet extended release 24 hr 90 mg PO QAM Qty: 90 5RF gabapentin 800 mg tablet 800 mg PO TID Qty: 84 2RF Rx Instructions: Pharmacy requested only 84 tabs since its blister packing ibuprofen 200 mg capsule 400 mg PO Q8H PRN (Reason: pain) Qty: 30 0RF Rx Instructions: unable to verify with pharmacy 05/31/23 Discharge Orders: Discharge Order (Routine); Ordered 06/20/23 Ordered By: Anai Peguero/Other Patient Handouts: Rhabdomyolysis, Nutrition for Wound Healing, Managing Type 2 Diabetes, ED Fracture, Foot Admission Data Admit Date/Time: 05/31/23 08:51 Attending Provider: Anai Bowles Admit Provider: Shukri Gutierrez Primary Care Provider: Wendy Garcia V. Other Providers: Gianluca Singleton; Shukri Gutierrez; Laurie Maradiaga; Madhavi Lowry; Alexander Chauhan; Stevne Koo; Daniel Putnam Jr; [facility]; [facility] Other Interventions: Discharge Summary Assessment (RN) Last Done: 06/20/23 08:52 Coding Level of Care Code 39628 INP/OBS DISCH >30 MIN Diagnoses Acute encephalopathy G93.40 Cognitive impairment R41.89 Rhabdomyolysis M62.82 Fall W19.XXXA Closed displaced fracture of proximal phalanx of lesser toe of left foot, initial encounter S92.512A Encounter type: initial encounter Fracture alignment: displaced Phalanx: proximal Toe: lesser toe HIV disease B20 Type 2 diabetes mellitus E11.9 Terrance Bonnet syndrome H53.16 Abnormal brain MRI R90.89 Coronary artery disease involving [place] coronary artery of [place] heart with angina pectoris I25.119 Associated angina: with unspecified angina Ione vs. transplanted heart: [place] heart Hypertension I10 Idiopathic polyneuropathy G60.9 Wound, open, toe S91.109A
== END 2023-06-20 10:26 | disposition home or self-care (01) | DRG 922 ==
LOC: ED 05:41 → SUATTDRO 08:51 → 3N 08:51

== ENCOUNTER 2023-08-05 22:31 | Inpatient (IN) ==
--- OUTSIDE RECORDS SUMMARY | 2023-08-05 22:38 | External Medical Summary | Summary of Care ---
Author Name Unknown Organization [facility] Address [address] [place] [address] Phone [phone] Care Team Providers Care Meat Passer Name Role Phone Wendy Cui MD [facility] Care Provider Encounter Details Date Type Department Care Team (Late st Contact Info) Description 07/26/2023 Population Health External Data Unspecified Department Allergies Active Allergy Reactions Criticality Noted Date Comments Penicillins Rash 03/17/2016 documented as of this encounter (statuses as of 07/31/2023) Medications Medication Sig Dispensed Refills Start Date [...] and 1 Tablet before bedtime. 0 Active ONETOUCH ULTRA BLUE STRP CHECK BLOOD SUGAR TWICE DAILY 0 08/28/2017 Active Cyanocobalamin (VITAMIN B-12) [address] 1 Tablet under the tongue in the morning. 0 Active pantoprazole (PROTONIX) 40 MG TBEC Take 1 Tablet by mouth in the morning. In the morning.. 4 12/08/2017 Active Cholecalciferol (VITAMIN D3) 1000 units CAPS Take by mouth at bedtime. 0 Active Jardiance 25 MG Oral Tablet Take 1 Tablet by mouth in the morning. 0 02/05/2020 Active glipiZIDE 10 MG Oral Tablet (GLUCOTROL) Take 1 Tablet by mouth 2 times a day 30 minutes before morning and evening meals. 0 01/30/2020 Active Ocuvite Adult 50+ Oral Capsule Take 1 Capsule by mouth at bedtime. 0 Active Atorvastatin Calcium 40 MG Oral Tablet (Lipitor)Indications :Dyslipidemia, goal LDL below 70 TAKE 1 TABLET BY MOUTH DAILY EVERY EVENING 30 Tab 5 12/08/2020 Active Ezetimibe 10 MG Oral Tablet (Zetia)Indications:D yslipidemia, goal LDL below 70 TAKE 1 TABLET BY MOUTH DAILY 30 Tab 5 12/08/2020 Active Nitroglycerin 0.4 MG Sublingual Tablet Sublingual (Nitrostat)Indicatio ns:Coronary artery disease involving [place] coronary artery of [place] heart without angina pectoris PLACE 1 TABLET UNDER THE TONGUE EVERY 5 MINUTES NEEDED FOR CHEST PAIN 25 Tablet 5 09/12/2021 Active Venlafaxine HCl ER 225 MG Oral Tablet Extended Release 24 HourIndications:IN EVENING Take 1 Tablet by mouth in the morning. 30 Tablet 2 08/08/2022 Active buPROPion HCl ER (XL) 150 MG [...] mg daily. 30 Tablet 2 05/17/2023 Active Biktarvy 50-200-25 MG Oral Tablet (Bictegravir-Emtrici tabine-Tenofovir) Take 1 Tablet by mouth in the morning. 90 Tablet 2 06/22/2023 09/20/2023 Active Meloxicam 15 MG Oral Tablet (Mobic) Take 1 Tablet by mouth. 0 Active ARIPiprazole 2 MG Oral Tablet (Abilify) 0 05/16/2023 Active Metoprolol Succinate ER 25 MG Oral Tablet Extended Release 24 Hour (toPROL XL) TAKE 1 TABLET BY MOUTH EVERY DAY IN THE MORNING 0 06/19/2023 Active documented as of this encounter (statuses as of 07/31/2023) Active Problems Problem Noted Date Diagnosed Date Depressive disorder 11/16/2021 Essential hypertension with goal blood pressure less than 130/80 12/25/2018 Dyslipidemia, goal LDL below 70 12/16/2018 History of tobacco use 12/16/2018 Coronary artery disease invo lving [place] coronary artery of [place] heart without angina pectoris 04/18/2018 S/P angioplasty with stent 04/18/2018 Chronic diarrhea 08/14/2016 HIV (human immunodeficiency virus infection) documented as of this encounter (statuses as of 07/31/2023) Immunizations Name Administration Dates Next Due Pneumococcal Polysaccharide PPV23 (Pneumovax) ,08/04/2013 Seasonal Influenza, Quadrivalent Hd (Fluzone Hd) 02/16/2021 Seasonal Influenza, Split, IIV3, With Preserve, Inj 02/28/2016 TDAP (age 11 and older)(Adacel) 04/08/2014 documented as of this encounter Social History Tobacco Use Types Packs/Day Years Used Date Smoking Tobacco: Former Cigarettes Q uit: 03/17/1995 Smokeless Tobacco: Former Alcohol Use Standard Drinks/Week Comments Yes 0 (1 standard drink = 0.6 oz pur e alcohol) PHQ-2 Answer Date Recorded PHQ Adult Total Score 17 06/21/2023 Hunger Vital Sign Answer Date Recorded Within the past 12 months, y ou worried that your food would run out before you got the money to buy more. Never true 06/21/19 24 Within the past 12 months, t he food you bought just didn't last and you didn't have money to get more. Never true 06/21/2023 Sex and Gender Information Value Date Recorded Sex Assigned at Not on file Gender Identity Not on file Sexual Orientation Not on file Job Start Date Occupation Industry Not on file Not on file Not on file documented as of this encounter Plan of Treatment Upcoming Encounters Date Type Department Care Team (Late st Contact Info) Description 08/10/2023 2:00 PM EDT Office Visit [facility] [address] [place] [id number] Brooke Carty PA-C [address] [place] [id number] Scheduled Procedures Name Priority Associated Diagnoses Date/Ti me COLONOSCOPY FLEXIBLE PROXIMAL DIAGNOSTIC Recall History of colon polyps Health Maintenance Due Date Last Done Comments MENINGOCOCCAL (MENACTRA/MENVEO) (1 - Risk 2-dose series) 07/18/1957 COVID-19 Vaccine (#1) 1958 Albumin/Creatinine Ratio 07/18/1971 Zoster Vaccines (1 of 2) 1972 Hepatitis B (1 of 3 - Risk 3-dose series) 2013 AAA Screening 2018 Pneumococcal Vaccine: 65+ Years (3 of 3 - PCV) 02/16/2022 02/16/2021, 08/04/2013 Influenza Vaccine (FLU shot) (#1) 2022 02/16/2021, 02/28/2016 Depression, Most Recent Score >= 10 (will fire each visit until score < 10) 06/22/2023 06/21/2023 DTaP,Tdap,and Td Vaccines (2 - Td or Tdap) 04/08/2024 04/08/2014 GFR 07/15/2024 07/16/2023, 02/28, 10/17/2022, Additional history exists COLONOSCOPY-EVERY 3 YRS AGES 18-100 09/22/2024 09/22/2021, 09/22/2021, 03/10/2020, Additional history exists COLONOSCOPY-ANNUAL AGES 18-100 Discontinued 09/22/2021, 09/22/2021, 03/10/2020, Additional history exists GARDASIL-HPV IMMUNIZATION SERIES Aged Out No longer eligible based on patient's age to complete this topic documented as of this encounter Medical Devices Implanted Type Area Development Intern Device Identifier Shelf Expiration Date Model / Serial / Lot Sureclip 16mm 235cm - [id number] Implanted:Qty: 1 on 09/22/2021 by Thomas Boone MD at ENDOSCOPY [facility] Colon MICRO TECH ENDOSCOPY 09/02/2023 [id number] / / [id number] Sureclip 16mm 235cm - [id number] Implanted:Qty: 1 on 09/22/2021 by Thomas Boone MD at ENDOSCOPY [facility] Colon MICRO TECH ENDOSCOPY 09/02/2023 [id number] / / [id number] documented as of this encounter Additional Health Concerns Infection Onset Date Last Indicated Resolved Time Prion Rule-Out 04/24/2023 05/01/2023 documented as of this encounter Care Teams Meat Passer Relationship Specialty Start Date End Date Wendy Cui MD [address] [place] [address] PCP - General Internal Medicine 08/14/16 documented as of this encounter
--- OUTSIDE RECORDS SUMMARY | 2023-08-05 22:38 | External Medical Summary | Summary of Care ---
Author Name Unknown Organization [facility] Address [address] [place] [address] Phone [phone] Care Team Providers Care Editor Department Name Role Phone Wendy Cui MD [facility] Care Provider Reason for Visit * Reason Onset Date Comments case management 08/03/2023 Fax Rqst Encounter Details Date Type Department Care Team (Latest Contact Info) Description 08/03/2023 Adjuster Electrical Contacts Telephone Infectious Disease Treatment, [facility] [address] [place] [address] Vee Putnam, ANIMAL CARE TECHNICIAN case management (Fax Rqst) Allergies Active Allergy Reactions Criticality Noted Date Comments Penicillins Rash 03/17/2016 documented as of this encounter (statuses as of 08/03/2023) Medications Medication Sig Dispensed Refills Start Date End Date Status aspirin enteric coated 81 MG TBEC Take 1 Tablet by mouth at bedtime. 0 02/28/2016 Active lisinopril (PRINIVIL) 2.5 MG TabletIndications:i n am Take 1 Tablet by mouth in the morning. 0 Active oxybutynin XL (DITROPAN XL) 5 MG TB24 Take 1 Tablet by mouth at bedtime. 0 Active Gabapentin 300 MG Oral Capsule (Neurontin) Take one capsule by mouth in the morning, one at noon and 2 capsules at bedtime 0 Active ONETOUCH ULTRA BLUE STRP CHECK [...] Active Atorvastatin Calcium 40 MG Oral Tablet (Lipitor)Indication s:Dyslipidemia, goal LDL below 70 TAKE 1 TABLET BY MOUTH DAILY EVERY EVENING 30 Tab 5 12/08/2020 Active Ezetimibe 10 MG Oral Tablet (Zetia)Indications: Dyslipidemia, goal LDL below 70 TAKE 1 TABLET BY MOUTH DAILY 30 Tab 5 12/08/2020 Active Nitroglycerin 0.4 MG Sublingual Tablet Sublingual (Nitrostat)Indicati ons:Coronary artery disease involving [place] coronary artery of [place] heart without angina pectoris PLACE 1 TABLET [...] 05/17/2023 Active Biktarvy 50-200-25 MG Oral Tablet (Bictegravir-Emtric itabine-Tenofovir) Take 1 Tablet by mouth in the [...] as of this encounter (statuses as of 08/03/2023) Active Problems Problem Noted Date Diagnosed Date Depressive disorder 11/16/2021 Essential hypertension with goal blood pressure less than 130/80 12/25/2018 Dyslipidemia, goal LDL below 70 12/16/2018 History of tobacco use 12/16/2018 Coronary artery disease invo lving [place] coronary artery of [place] heart without angina pectoris 04/18/2018 S/P angioplasty with stent 04/18/2018 Chronic diarrhea 08/14/2016 HIV (human immunodeficiency virus infection) documented as of this encounter (statuses as of 08/03/2023) Immunizations Name Administration Dates Next Due Pneumococcal [...] encounter Miscellaneous Notes * Telephone Encounter - Vee Putnam MSW - 08/03/2023 11:04 AM EDT Received request from [facility] for pt's most recent HIV labs and visit summary. Pt is involved with [facility] for community HIV case management services with [facility]. Pt has release of information scanned in chart. Faxed most recent labs and visit summary as requested. Time spent: 15 minutes documented in this encounter Plan of Treatment Upcoming Encounters Date Type Department Care Team (Late st Contact Info) Description 08/10/2023 2:00 PM EDT Office Visit Neurology [facility] [place] [address] [facility] [place] [id number] Brooke Carty PA-C [address] [place] [address] Scheduled Procedures Name Priority Associated Diagnoses Date/Ti [...] of 3 - PCV) 02/16/2022 02/16/2021, 08/04/2013 Depression, Most Recent Score >= 10 (will fire each visit until score < 10) 06/22/2023 06/21/2023 Influenza Vaccine (FLU shot) (Season Ended) 2023 02/16/2021, 02/28/2016 DTaP,Tdap,and Td Vaccines (2 - Td or [...] this encounter Medical Devices Implanted Type Area After School Program Assistant Device Identifier Shelf Expiration Date Model / Serial / Lot Sureclip 16mm 235cm - [id number] Implanted:Qty: 1 on 09/22/2021 by Thomas Boone MD at ENDOSCOPY [facility] Colon MICRO TECH ENDOSCOPY 09/02/2023 [id number] / / [id number] Sureclip 16mm 235cm - [id number] Implanted:Qty: 1 on 09/22/2021 by Thomas Boone MD at ENDOSCOPY [facility] Colon MICRO TECH ENDOSCOPY 09/02/2023 [id number] / / [id number] documented as of this encounter Additional Health Concerns Infection Onset Date Last Indicated Resolved Time Prion Rule-Out 04/24/2023 05/01/2023 documented as of this encounter Care Teams Editor Department Relationship Specialty Start Date End Date Wendy Cui MD [address] [place] [address] PCP - General Internal Medicine 08/14/16 documented as of this encounter
--- NOTE | 2023-08-05 23:44 | Emergency Department Note ---
Impression & Plan Chest wall contusion, Injury of right rotator cuff, Fall Discharged back to [place] ED Provider Note NAME: CAL STINSON AGE: 68 SEX: Male INFORMANT: Patient ED PROVIDER(S): Neva Lambert DO CHIEF COMPLAINT: Fall PLAN: Disposition: Discharge back to [place] Outpatient prescription management: None Referral: Follow-up with your PCP/orthopedics of the right rotator cuff MEDICAL DECISION MAKING: This is a 68-year-old male patient from [place] who has suffered a couple falls over the past 3 days who presents to the emergency department with significant discomfort in his right shoulder and right ribs. Staff states that the patient has a baseline altered mental status but it seems to be worse. Patient was cooperative throughout his stay here in the emergency department. Urinalysis revealed ketonuria. Glucose was 169. There was no leukocytosis or anemia. Hemoglobin was 13.1. X-ray of the right shoulder revealed no shoulder separation or acute fracture. CT scan of the chest revealed a soft tissue injury to the right chest wall. I relayed these findings to the patient. He will be discharged back to [place] to take care with walking. He can apply ice to the right shoulder and use Tylenol for pain. Triage Nursing notes: Reviewed and agree with them. Vital Signs: reviewed and unremarkable Differential Diagnosis: Humeral head fracture, shoulder separation, rotator cuff injury, clavicle fracture, rib fractures, UTI, electrolyte abnormality, hypoglycemia Diagnostics, independently interpreted by me: ECG: Normal sinus rhythm at a rate of [address] segment elevation or signs of ischemia. There is no ectopy. Cardiac Monitoring: Normal sinus rhythm at a rate of 70 Imaging studies: Right shoulder x-ray: As per my independent interpretation Chest x-ray: As per my independent interpretation CT scan of the chest: HPI: 68 year old Male arrives for evaluation of fall. Patient resides at [facility] and has suffered two significant falls over the past 2 days. Patient fell landing on his right shoulder and then his right chest wall. He complains of pain to the right chest wall and in the shoulder. He has decreased range of motion to that shoulder. PAST MEDICAL HISTORY: See Below, PAST SURGICAL HISTORY: See Below, SOCIAL HISTORY: See Below, HOME MEDICATIONS: See list ALLERGIES: See list VITALS: See Below PHYSICAL EXAMINATION: HEENT: Head - normocephalic and atraumatic. Pupils are equal, round, and reactive to light. Extraocular eye muscles are intact and sclera are anicteric. Ears - bilaterally patent canals with noninjected tympanic membranes and no evidence of hemotympanum. Nose - moist nasal mucosa without discharge. Mouth - moist buccal mucosa. Oropharynx is nonerythematous and there is no tonsillar exudate or edema noted. Neck: Supple; no pain to palpation over the posterior cervical spine. Chest: Patient has reproducible discomfort with palpation over the right anterior chest wall and right mid axillary line Heart: Regular rate and rhythm. There is a normal S1 and S2 with no murmurs, clicks, or gallops appreciated. Lungs: Clear to auscultation bilaterally with no wheezes, rales, or rhonchi. Abdomen: Soft, completely nontender, nondistended, with good bowel sounds. There are no palpable pulsatile masses or hepatosplenomegaly. There is no guarding, rigidity, or rebound noted. Extremities: Edema noted over the right humeral head and pain to palpation in that area. The patient has limited range of motion of the right shoulder. Patient has multiple small areas of abrasions noted to his fingers, knees and shins. Neuro:The patient is awake and alert, oriented to day, time, and place. Muscle strength is 5/5 in all 4 extremities. The patient has equal slot tag inserter strength and equal pedal push and pull. There are no cerebellar signs. Emergency department course: The patient was evaluated in room B-8. A complete history and physical was performed. EKG was obtained. An order was placed for continuous cardiac monitoring. The patient was in a normal sinus rhythm at a rate of 70. Patient had plain films of the right shoulder completed which showed no obvious fracture. He went for CT scan of the chest to rule out acute fractures to the anterior chest wall. This was negative. Past Med/Surg History Medical History Delirium Ambulatory dysfunction Terrance Bonnet syndrome Exposure to COVID-19 virus Abdominal pain, acute, right lower quadrant Acute appendicitis Sensorineural hearing loss of both ears Mixed conductive and sensorineural hearing loss of left ear with restricted hearing of right ear Cleft palate Cleft lip Deep vein thrombosis Fall 2016 Left Leg with unknown reasoning. Osteoarthritis Basal cell carcinoma Spinal stenosis Macular degeneration Lumbosacral radiculopathy Idiopathic polyneuropathy Hypertension Hyperlipidemia Hearing loss Gastroesophageal reflux disease Depression Degenerative disc disease, lumbar Coronary artery disease Colon polyps Heart attack 2016 & November 2017 Injury of left shoulder Acute myocardial infarction Surgical History History of laparoscopic appendectomy (05/28/21) History of cleft lip History of colonoscopy History of esophagogastroduodenoscopy (EGD) History of carpal tunnel release History of laminectomy Hx of local excision of skin lesion History of heart artery stent History of cardiac catheterization History of placement of ear tubes History of tonsillectomy and adenoidectomy History of sinus surgery History of rotator cuff surgery Family History Mother Cancer Cardiac disorder Colorectal cancer Father Cardiac disorder Myocardial infarction Brother Diabetes Grandmother (Maternal) Diabetes Denies family history of No pertinent family history Ovarian cancer Prostate cancer Breast cancer Social History Smoking Status: Former smoker Tobacco Type: Cigarettes Cigarettes Per Day: 20; Second Hand Exposure: No; Do You Dip or Chew Tobacco: No; Hx Alcohol Use: Yes Alcohol type: beer Hx Substance Use: Yes Last Used Substance: Hours (ago) Preferred Language: Jamaican Communication Ability: Impaired Visual Impairment: No Limitations Hearing Ability: Hard of Hearing Pre Parole Counseling Aide Required: No Beliefs That Will Affect Care: None marital status: Single Current Living Situation: Alone current occupational status: retired current occupation: Retired Feels Safe at Home: Yes Childhood Exposure to Second-Hand Smoke: No Seatbelt Use: always Do you think of yourself as: lesbian/ulrich/homosexual Assistive Devices: Walker Allergies Allergies Allergy/AdvReac Type Severity Reaction Status Date / Time Penicillins Allergy Intermediate RASH Verified 08/06/23 00:22 metformin AdvReac Intermediate Diarrhea Verified 08/06/23 00:22 Home Meds Home Medications Medication Instructions Recorded Confirmed aspirin 81 mg tablet,delayed 81 mg PO HS #30 tabs 12/19/18 08/06/23 release cholecalciferol (vitamin D3) 125 5,000 units PO QAM 12/19/18 08/06/23 mcg (5,000 unit) tablet vit A 7,160 unit-vit C 113 mg-vit 1 tab PO PM 02/15/21 08/06/23 E 100 cyyc-qqyz-[id number] tablet bictegravir 50 mg-emtricitabine 1 tab PO DAILY 12/20/21 08/06/23 200 mg-tenofovir alafenam 25 mg tablet (Biktarvy) bupropion HCl 150 mg 24 hr tablet, 150 mg PO QAM 05/31/23 08/06/23 extended release bupropion HCl 300 mg 24 hr tablet, 300 mg PO QAM 05/31/23 08/06/23 extended release lisinopril 2.5 mg tablet 2.5 mg PO QAM 08/06/23 08/06/23 metoprolol succinate 50 mg 25 mg PO QAM 08/06/23 08/06/23 tablet,extended release 24 hr Previous Rx's Medication Instructions Recorded OneTouch Ultra2 Meter #1 ea 06/07/22 (blood-glucose meter) OneTouch UltraSoft Lancets #200 ea 06/07/22 (lancets) atorvastatin 40 mg tablet 40 mg PO HS #90 tabs 06/27/23 blood sugar diagnostic (OneTouch #200 ea 06/27/23 Ultra Test strips) cyanocobalamin (vitamin B-12) 1,000 mcg PO QAM #90 tabs 06/27/23 1,000 mcg tablet (Vitamin B-12) empagliflozin 25 mg tablet 25 mg PO QAM #90 tabs 06/27/23 (Jardiance) ezetimibe 10 mg tablet (Zetia) 10 mg PO HS #90 tabs 06/27/23 glipizide 10 mg tablet 10 mg PO BID #180 tabs 06/27/23 nitroglycerin 0.4 mg sublingual 0.4 mg sublingual Q5M PRN chest 06/27/23 tablet pain #30 tabs oxybutynin chloride 5 mg 5 mg PO QAM #90 tabs 06/27/23 tablet,extended release 24 hr pantoprazole 40 mg tablet,delayed 40 mg PO QAM #90 tabs 06/27/23 release venlafaxine 225 mg tablet,extended 225 mg PO QAM #90 tabs 06/27/23 release 24 hr Results & Data (ED) Vital Signs Vital Signs - 24 hr 08/05/23 22:25 08/05/23 22:25 08/05/23 22:42 Temperature 36.8 C Temperature Source Oral Pulse Rate 80 75 Pulse Rate [Apical] 80 Pulse Rate from SpO2 Sensor Respiratory Rate 18 18 Respiratory Effort / Characteristics Non-Labored Non-Labored Respiratory Depth Normal Normal Blood Pressure 118/68 Blood Pressure [Left Arm] 118/68 Blood Pressure Mean 84 Blood Pressure Mean [Left Arm] 84 Pulse Oximetry 96 96 Oxygen Delivery Method Room Air Room Air Sepsis Recent Fever Within 48 Hours No Sepsis New/Unexplained Change in Mental Status No Sepsis Action Taken by Nursing No Action Required 08/05/23 23:00 08/05/23 23:07 08/05/23 23:30 Temperature Temperature Source Pulse Rate 75 73 Pulse Rate [Apical] Pulse Rate from SpO2 Sensor 75 Respiratory Rate 20 20 Respiratory Effort / Characteristics Respiratory Depth Blood Pressure 122/84 128/69 Blood Pressure [Left Arm] Blood Pressure Mean 96 88 Blood Pressure Mean [Left Arm] Pulse Oximetry 96 97 Oxygen Delivery Method Room Air Sepsis Recent Fever Within 48 Hours Sepsis New/Unexplained Change in Mental Status Sepsis Action Taken by Nursing 08/06/23 00:00 08/06/23 00:30 08/06/23 01:00 Temperature Temperature Source Pulse Rate 71 75 73 Pulse Rate [Apical] Pulse Rate from SpO2 Sensor 76 74 Respiratory Rate 20 19 28 H Respiratory Effort / Characteristics Respiratory Depth Blood Pressure 117/65 117/66 108/69 Blood Pressure [Left Arm] Blood Pressure Mean 82 83 82 Blood Pressure Mean [Left Arm] Pulse Oximetry 96 95 Oxygen Delivery Method Sepsis Recent Fever Within 48 Hours Sepsis New/Unexplained Change in Mental Status Sepsis Action Taken by Nursing 08/06/23 01:30 08/06/23 02:00 08/06/23 02:30 Temperature Temperature Source Pulse Rate 73 73 79 Pulse Rate [Apical] Pulse Rate from SpO2 Sensor Respiratory Rate 13 12 16 Respiratory Effort / Characteristics Respiratory Depth Blood Pressure 114/71 121/68 115/64 Blood Pressure [Left Arm] Blood Pressure Mean 85 85 81 Blood Pressure Mean [Left Arm] Pulse Oximetry Oxygen Delivery Method Sepsis Recent Fever Within 48 Hours Sepsis New/Unexplained Change in Mental Status Sepsis Action Taken by Nursing 08/06/23 02:52 08/06/23 03:00 08/06/23 03:30 Temperature Temperature Source Pulse Rate 84 90 88 Pulse Rate [Apical] Pulse Rate from SpO2 Sensor Respiratory Rate 17 21 Respiratory Effort / Characteristics Respiratory Depth Blood Pressure 110/69 124/79 Blood Pressure [Left Arm] Blood Pressure Mean 82 94 Blood Pressure Mean [Left Arm] Pulse Oximetry Oxygen Delivery Method Sepsis Recent Fever Within 48 Hours Sepsis New/Unexplained Change in Mental Status Sepsis Action Taken by Nursing 08/06/23 04:30 08/06/23 04:31 08/06/23 05:00 Temperature Temperature Source Pulse Rate 86 87 Pulse Rate [Apical] Pulse Rate from SpO2 Sensor Respiratory Rate 13 22 Respiratory Effort / Characteristics Respiratory Depth Blood Pressure 129/82 143/76 H Blood Pressure [Left Arm] Blood Pressure Mean 97 91 Blood Pressure Mean [Left Arm] Pulse Oximetry Oxygen Delivery Method Sepsis Recent Fever Within 48 Hours Sepsis New/Unexplained Change in Mental Status Sepsis Action Taken by Nursing 08/06/23 05:00 08/06/23 05:30 Temperature Temperature Source Pulse Rate 90 Pulse Rate [Apical] 80 Pulse Rate from SpO2 Sensor Respiratory Rate 22 18 Respiratory Effort / Characteristics Non-Labored Respiratory Depth Normal Blood Pressure Blood Pressure [Left Arm] 121/82 Blood Pressure Mean Blood Pressure Mean [Left Arm] 95 Pulse Oximetry Oxygen Delivery Method Sepsis Recent Fever Within 48 Hours Sepsis New/Unexplained Change in Mental Status Sepsis Action Taken by Nursing Laboratory Data 08/05/23 22:40 08/05/23 22:40 Lab Results 08/05/23 08/06/23 Range/Units 22:40 01:19 WBC 8.70 (4.8-10.8) K/ul RBC 3.98 L (4.70-6.10) M/uL Hgb 13.1 L (14.0-18.0) g/dl Hct 39.5 L (42.0-52.0) % MCV 99.2 (80.0-100.0) fL MCH 32.9 (25.0-34.0) pg MCHC 33.2 (32.0-36.0) g/dL RDW Std Deviation 46.0 (36.4-46.3) fL RDW Coeff of Zunilda 12.6 (11.5-14.5) % Plt Count 159 (130-400) K/uL MPV 9.8 (9.4-12.4) fL Immature Gran % (Auto) 0.5 % Neut % (Auto) 65.1 % Lymph % (Auto) 17.9 % Meade % (Auto) 11.7 % Eos % (Auto) 4.3 % Baso % (Auto) 0.5 % Neut # (Auto) 5.67 (1.40-6.50) K/uL Lymph # (Auto) 1.56 (1.20-3.40) K/uL Meade # (Auto) 1.02 H (0.11-0.59) K/uL Eos # (Auto) 0.37 (0.00-0.50) K/uL Baso # (Auto) 0.04 (0.00-0.20) K/uL Immature Gran # (Auto) 0.04 (0.01-0.20) K/uL Sodium 139 (136-145) mmol/L Potassium 3.8 (3.5-5.1) mmol/L Chloride 105 (98-107) mmol/L Carbon Dioxide 25 (21-32) mmol/L Anion Gap 9 (3-11) BUN 22 (6-23) mg/dl Creatinine 1.39 (0.6-1.4) mg/dl Est Cr Clr Drug Dosing 59.1 ml/min Est GFR ( Amer) 59.1 ml/min Est GFR (Non-Af Amer) 51.0 ml/min BUN/Creatinine Ratio 15.8 (10-20) Glucose 169 H (70-99(Fasting)) mg/dl Calcium 9.0 (8.6-10.3) mg/dl Total Bilirubin 0.8 (0.2-1.0) mg/dl AST 32 (13-39) U/L ALT 27 (7-52) U/L Alkaline Phosphatase 63 (34-104) U/L Total Protein 7.1 (6.0-8.3) gm/dl Albumin 4.1 (3.4-5.0) gm/dl Globulin 3.0 (2.5-4.0) gm/dl Albumin/Globulin Ratio 1.4 (0.9-2) Urine Color Yellow Urine Appearance Clear (Clear) Urine pH 5.5 (4.5-7.5) Ur Specific Novelty 1.039 H (1.000-1.030) Urine Protein Negative (Negative) Urine Glucose (UA) 3+ H (Negative) Urine Ketones Trace H (Negative) Urine Blood Negative (Negative) Urine Nitrite Negative (Negative) Urine Bilirubin Negative (Negative) Urine Urobilinogen Negative (Negative) Ur Leukocyte Esterase Negative (Negative) Administered Medications Discontinued Medications Acetaminophen (Acetaminophen 500 Mg Tab) 1,000 mg PO NOW STA Stop: 08/06/23 05:21 Last Admin: 08/06/23 05:31 Dose: 1,000 mg Documented By: OCTAVIO Sodium Chloride (Nss) 500 mls @ 999 mls/hr IV .Q31M ONE Stop: 08/06/23 03:48 Last Infusion: 08/06/23 04:39 Dose: Infused Documented By: Admin: 08/06/23 03:54 Dose: 999 mls/hr Documented By: SKMary Ioversol (Optiray 320 100ml) 93 ml IV ONCE ONE Stop: 08/06/23 00:23 Last Admin: 08/06/23 00:24 Dose: 93 ml Documented By: [facility] ([place]) Imaging Data Radiologist's Impression: Chest CT 08/05/23 23:16 Exam(s): CT CHEST With Contrast IV Amt: 92 cc opti 320 EXAM: CT Chest With Intravenous Contrast CLINICAL HISTORY: Trauma. TECHNIQUE: Axial computed tomography images of the chest with intravenous contrast. CTDI is 26.74 mGy and DLP is 948 mGy-cm. Automated exposure control was utilized for the study. A dose lowering technique was utilized adhering to the principles of ALARA. CONTRAST: Patient received 92 cc opti 320 of IV contrast COMPARISON: No relevant prior studies available. FINDINGS: Lungs: Unremarkable. No mass. No consolidation. Pleural space: Unremarkable. No pneumothorax. No significant effusion. Heart: Unremarkable. No cardiomegaly. No significant pericardial effusion. No significant coronary artery calcifications. Bones/joints: There are degenerative changes of the spine. No acute fracture. No dislocation. Soft tissues: There is a contusion of the lateral right chest wall. Vasculature: Mild atherosclerosis. No thoracic aortic aneurysm. Lymph nodes: Unremarkable. No enlarged lymph nodes. IMPRESSION: There is a mild contusion of the lateral right chest wall. No underlying fracture. Electronically signed by: Shannon Martin MD 08/06/23 03:44 AM Discharge Plan Visit Data Chief Complaint: Fall Stated Complaint: Fall x2, R Sided Pain ED Provider: Neva Lambert Discharge Problem: Chest wall contusion, Injury of right rotator cuff, Fall Discharge Instructions Krames/Other Patient Handouts: ED Chest Bruise (Contusion), ED Rotator Cuff Tear, ED Fall Prevention Activity Restrictions/Additional Instructions: Rest walk slowly with assistance. Use tylenol for pain Follow up with ortho for rotator cuff injury Forms Stand Alone Forms: My [facility] Prescriptions Prescriptions: No Action (DME) blood-glucose [place]OneTouch Ultra2 M[place] [facility] [place] .[place]OUTE .MEDSUPPLY Qty: 1 0RF Rx Instructions: Use to test blood sugars twice a day (DME) lancets [OneTouch UltraSoft Lancets[place] [facility] [place] Dose [place]ructions .ROUTE .MEDSUPPLY Qty: 200 3RF Dose Instruction: As directed Rx Instructions: test 2 times daily aspirin 81 mg tablet,delayed release (DR/EC) 81 mg PO HS Qty: 30 Rx Instructions: UNSURE IF PT STILL TAKING cholecalciferol (vitamin D3) 5,000 unit tablet 5,000 units PO QAM Rx Instructions: UNSURE IF PT IS STILL TAKING vit A-vit C-vit S-nzrp-xfmcpv 7,160-113-100 fdrh-no-mzfk tablet 1 tab PO PM Rx Instructions: UNSURE IF PT STILL TAKING Biktarvy 50-200-25 mg tablet 1 tab PO DAILY atorvastatin 40 mg tablet 40 mg PO HS Qty: 90 3RF cyanocobalamin (vitamin B-12) [Vitamin B-12] 1,000 mcg tablet 1,000 mcg PO QAM Qty: 90 3RF Rx Instructions: UNSURE IF PT STILL TAKING Jardiance 25 mg tablet 25 mg PO QAM Qty: 90 3RF ezetimibe [Zetia] 10 mg tablet 10 mg PO HS Qty: 90 3RF glipizide 10 mg tablet 10 mg PO BID Qty: 180 3RF nitroglycerin 0.4 mg tablet, sublingual 0.4 mg SL Q5M PRN (Reason: chest pain) Qty: 30 0RF Rx Instructions: UNSURE IF PT STILL TAKING oxybutynin chloride 5 mg tablet extended release 24hr 5 mg PO QAM Qty: 90 3RF pantoprazole 40 mg tablet,delayed release (DR/EC) 40 mg PO QAM Qty: 90 3RF venlafaxine 225 mg tablet extended release 24hr 225 mg PO QAM Qty: 90 3RF (DME) OneTouch Ultra Test Strip See Rx Instructions .Route Qty: 200 3RF Rx Instructions: Test blood sugars twice a day metoprolol succinate 50 mg tablet extended release 24 hr 25 mg PO QAM lisinopril 2.5 mg tablet 2.5 mg PO QAM bupropion HCl 300 mg tablet extended release 24 hr 300 mg PO QAM Rx Instructions: TOTAL DOSE 450 MG--TAKES WITH 150 MG TAB. bupropion HCl 150 mg tablet extended release 24 hr 150 mg PO QAM Rx Instructions: TOTAL DOSE 450 MG--TAKES WITH 300 MG TAB. Referrals Referrals: Wendy Garcia MD [Primary Care Provider] - Discharge Problem: Chest wall contusion Qualifiers: Encounter type: initial encounter Laterality: right Qualified Code(s): S20.211A - Contusion of right front wall of thorax, initial encounter Injury of right rotator cuff Qualifiers: Encounter type: initial encounter Qualified Code(s): S46.001A - Unspecified injury of muscle(s) and tendon(s) of the rotator cuff of right shoulder, initial encounter
[2023-08-05 23:58] LABS: Basophils # (auto) 0.04 K/uL (0.00-0.20); Basophils % (auto) 0.5 %; Eosinophils # (auto) 0.37 K/uL (0.00-0.50); Eosinophils % (auto) 4.3 %; Hematocrit (blood only) 39.5 % (42.0-52.0); Hemoglobin 13.1 g/dl (14.0-18.0); Immature Granulocytes # (auto) 0.04 K/uL (0.01-0.20); Immature Granulocytes % (auto) 0.5 %; Lymphocytes # (auto) 1.56 K/uL (1.20-3.40); Lymphocytes % (auto) 17.9 %; Mean Corpuscular Hemoglobin 32.9 pg (25.0-34.0); Mean Corpuscular Hgb Conc 33.2 g/dL (32.0-36.0); Mean Corpuscular Volume 99.2 fL (80.0-100.0); Mean Platelet Volume 9.8 fL (9.4-12.4); Monocytes # (auto) 1.02 K/uL (0.11-0.59); Monocytes % (auto) 11.7 %; Neutrophils # (auto) 5.67 K/uL (1.40-6.50); Neutrophils % (auto) 65.1 %; Platelet Count 159 K/uL (130-400); RDW Coefficient of Variation 12.6 % (11.5-14.5); Red Blood Count 3.98 M/uL (4.70-6.10)
[2023-08-06 00:06] LABS: Albumin Globulin Ratio 1.4 (0.9-2); Albumin Level 4.1 gm/dl (3.4-5.0); BUN Creatinine Ratio 15.8 (10-20); Bilirubin,Total 0.8 mg/dl (0.2-1.0); Creatinine Clr Calc Pharmacy 59.1 ml/min; Est GFR (African American) 59.1 ml/min; Potassium 3.8 mmol/L (3.5-5.1); Total Protein 7.1 gm/dl (6.0-8.3)
[2023-08-06] MEDS: OPTIRAY 320 100ml IV ONE (00:24)
[2023-08-06 01:50] LABS: Appearance Urine Clear (Clear); Bilirubin Urine Negative (Negative); Blood Urine Negative (Negative); Color Urine Yellow; Glucose Urine UA 3+ (Negative); Ketones Urine Trace (Negative); Leukocyte Esterase Urine Negative (Negative); Nitrite Urine Negative (Negative); Protein Urine Negative (Negative); Specific Gravity Urine 1.039 (1.000-1.030); Urobilinogen Urine Negative (Negative); pH Urine 5.5 (4.5-7.5)
--- NOTE | 2023-08-06 03:44 | CT Scan Report ---
Exam(s): CT CHEST With Contrast IV Amt: 92 cc opti 320 EXAM: CT Chest With Intravenous Contrast CLINICAL HISTORY: Trauma. TECHNIQUE: Axial computed tomography images of the chest with intravenous contrast. CTDI is 26.74 mGy and DLP is 948 mGy-cm. Automated exposure control was utilized for the study. A dose lowering technique was utilized adhering to the principles of ALARA. CONTRAST: Patient received 92 cc opti 320 of IV contrast COMPARISON: No relevant prior studies available. FINDINGS: Lungs: Unremarkable. No mass. No consolidation. Pleural space: Unremarkable. No pneumothorax. No significant effusion. Heart: Unremarkable. No cardiomegaly. No significant pericardial effusion. No significant coronary artery calcifications. Bones/joints: There are degenerative changes of the spine. No acute fracture. No dislocation. Soft tissues: There is a contusion of the lateral right chest wall. Vasculature: Mild atherosclerosis. No thoracic aortic aneurysm. Lymph nodes: Unremarkable. No enlarged lymph nodes. IMPRESSION: There is a mild contusion of the lateral right chest wall. No underlying fracture. Electronically signed by: Shannon Martin MD 08/06/23 03:44 AM
[2023-08-06] MEDS: SODIUM CHLORIDE 0.9% 500 ML IV ONE (03:54)
[2023-08-06] MEDS: ACETAMINOPHEN 500 MG TAB PO STA (05:31)
--- NOTE | 2023-08-06 07:46 | XRay Report ---
XR shoulder RT min 2V routine CLINICAL HISTORY: fall TECHNIQUE: 3 views of the right shoulder were obtained. Comparison: Comparison is made to chest radiograph 08/05/2023 and chest radiograph 05/31/2023 FINDINGS: There is no evidence of an acute fracture. Joint spaces are well-preserved. The overlying soft tissue s are unremarkable. Calcific densities are seen about the glenoid. These are unchanged from multiple prior exams. IMPRESSION: No evidence of acute osseous injury. ACT 112: Negative or not required by law. Electronically signed by: Charlie Cheung M.D. 08/06/2023 7:44 AM
--- NOTE | 2023-08-06 07:52 | XRay Report ---
XR chest 1V portable HISTORY: weakness COMPARISON: Chest 05/31/2023. FINDINGS: No pneumothorax. No pleural effusions. The cardiac silhouette is top normal in size. There are calcifications within the aortic knob. No focal lung consolidations to suggest a pneumonia. No ev idence for pulmonary edema. There is an acute right anterior seventh rib fracture identified on the chest CT. IMPRESSION: 1. There is an acute right anterior seventh rib fracture identified at 08/06/[address] 2. No pneumothorax. ACT 112: Negative or not required by law. Electronically signed by: Isaac Alexander M.D. 08/06/2023 7:51 AM
--- NOTE | 2023-08-06 08:27 | Emergency Department Note ---
ED Visit Note Patient is a 68-year-old male who presents the ER with a past medical history of cognitive impairment, peripheral artery disease, HIV, hypertension, hyperlipidemia who lives in a skilled nursing which does not have a locked unit. Per electric wheelchair repairer there he was not delusional or hallucinating back in May. This is progressed significantly. He [place]. He does not feel he safe coming back he is hallucinating too much and uncontrollable. He did have a fall and has 1 broken rib on chest x-ray which was over read following the CT by our radiologist. Patient was updated in regards to this but is clearly delusional and hallucinating on my evaluation. Discussed with the hospitalist for further evaluation management treatment due to the worsening delusions/hallucinations and difficulty managing with his current living arrangements. .
[2023-08-06] MEDS ORDERED: NITROGLYCERIN SL 0.4 MG/TAB TAB SL PRN (08:52)
[2023-08-06] MEDS ORDERED: PHARMACY GLYCEMIC MGMT CONSULT PRN (08:57)
[2023-08-06] MEDS ORDERED: DEXTROSE 50% 50 ML SYRINGE IV PRN (11:15)
[2023-08-06] MEDS ORDERED: GLUCAGON FOR INJ 1 MG VIAL IM PRN (11:15)
[2023-08-06] MEDS ORDERED: CARBOHYDRATES FOR HYPOGLYCEMIA PO PRN (11:15)
[2023-08-06] MEDS ORDERED: GLUCOSE 40% GEL 15 GM TUBE PO PRN (11:15)
[2023-08-06] MEDS ORDERED: GLUCOSE 10 TAB/TUBE PO PRN (11:15)
--- NOTE | 2023-08-06 11:49 | Pharmacy Report ---
Pharmacy Glycemic Short Note 2 - Date of Service August 06, 2023 - Glycemic Short BSG Results (Last 24 hours): 08/05/23 22:40 Glucose 169 H OUTPATIENT ANTIDIABETIC REGIMEN: * jardiance 25 mg daily, glipizide 10 mg bid ASSESSMENT: * 68 year old male admitted s/p fall - type 2 diabetic managed on oral agents at home. Pharmacy consulted for glycemic management. Plan to start novolog weight based dosing. A1c 6.8% 07/21 - will hold off on any basal insulin until we see how BSGs trend. PLAN FOR INPATIENT GLYCEMIC CONTROL: * Hold outpatient oral diabetes medications * Basal insulin * Lantus - hold * Bolus insulin * NovoLog per scale ACHS or Q6hrs while NPO * Goal Range: Low 110 mg/dL - High 140 mg/dL * Correction Factor: 30 mg/dL/unit * Nutritional / Prandial insulin per carb ratio of 1 unit per 10 grams CHO consumed
--- NOTE | 2023-08-06 13:23 | History & Physical Report ---
Date of Service August 06, 2023 Assessment & Plan (1) Fall: Plan: Patient suffered multiple falls. WIll have PT eval patient. Patient has been having more hallcuinations recently and appears they have been difficulty handling patient at the facility where he lives. However, he appears to be cooperative here. 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 (7) Hypertension: Plan: resume home meds (8) Type 2 diabetes mellitus: Plan: resume home meds Admission and Anticipated Discharge Date Admission Date: August 06, 2023 History of Present Illness Chief Complaint: falls Primary Care Provider: Wendy Garcia MD 68 yo male This is a 68-year-old male from [place] with a previous history of syphilis, HIV on HAART, hypertension, type 2 diabetes, polyneuropathy anxiety depression, who was brought to the hospital today after he suffered multiple falls. His mental status has been altered. Patient appears to have been cooperative during the ED and also during my discussion.He reports he does have hallucinations which are likely from his Terrance Bonnet syndrome. [facility] is concerned about him being able to care for himself there. Patient reports to have pain in his right shoulder. Allergies Allergy/AdvReac Type Severity Reaction Status Date / Time Penicillins Allergy Intermediate RASH Verified 08/06/23 00:22 metformin AdvReac Intermediate Diarrhea Verified 08/06/23 00:22 Home Medications Medication Instructions Recorded Confirmed Type aspirin 81 mg tablet,delayed 81 mg PO HS #30 tabs 12/19/18 08/06/23 History release cholecalciferol (vitamin D3) 125 5,000 units PO QAM 12/19/18 08/06/23 History mcg (5,000 unit) tablet vit A 7,160 unit-vit C 113 mg-vit 1 tab PO PM 02/15/21 08/06/23 History E 100 hjmb-lqfj-lzqxwi tablet bictegravir 50 mg-emtricitabine 1 tab PO DAILY 12/20/21 08/06/23 History 200 mg-tenofovir alafenam 25 mg tablet (Biktarvy) OneTouch Ultra2 Meter #1 ea 06/07/22 07/20/23 Rx (blood-glucose meter) OneTouch UltraSoft Lancets #200 ea 06/07/22 07/20/23 Rx (lancets) bupropion HCl 150 mg 24 hr tablet, 150 mg PO QAM 05/31/23 08/06/23 History extended release bupropion HCl 300 mg 24 hr tablet, 300 mg PO QAM 05/31/23 08/06/23 History extended release atorvastatin 40 mg tablet 40 mg PO HS #90 tabs 06/27/23 08/06/23 Rx blood sugar diagnostic (OneTouch #200 ea 06/27/23 07/20/23 Rx Ultra Test strips) cyanocobalamin (vitamin B-12) 1,000 mcg PO QAM #90 tabs 06/27/23 08/06/23 Rx 1,000 mcg tablet (Vitamin B-12) empagliflozin 25 mg tablet 25 mg PO QAM #90 tabs 06/27/23 08/06/23 Rx (Jardiance) ezetimibe 10 mg tablet (Zetia) 10 mg PO HS #90 tabs 06/27/23 08/06/23 Rx glipizide 10 mg tablet 10 mg PO BID #180 tabs 06/27/23 08/06/23 Rx nitroglycerin 0.4 mg sublingual 0.4 mg sublingual Q5M PRN chest 06/27/23 08/06/23 Rx tablet pain #30 tabs oxybutynin chloride 5 mg 5 mg PO QAM #90 tabs 06/27/23 08/06/23 Rx tablet,extended release 24 hr pantoprazole 40 mg tablet,delayed 40 mg PO QAM #90 tabs 06/27/23 08/06/23 Rx release venlafaxine 225 mg tablet,extended 225 mg PO QAM #90 tabs 06/27/23 08/06/23 Rx release 24 hr lisinopril 2.5 mg tablet 2.5 mg PO QAM 08/06/23 08/06/23 History metoprolol succinate 50 mg 25 mg PO QAM 08/06/23 08/06/23 History tablet,extended release 24 hr Past Med/Surg History Medical History Delirium Ambulatory dysfunction Terrance Bonnet syndrome Exposure to COVID-19 virus Abdominal pain, acute, right lower quadrant Acute appendicitis Sensorineural hearing loss of both ears Mixed conductive and sensorineural hearing loss of left ear with restricted hearing of right ear Cleft palate Cleft lip Deep vein thrombosis Fall 2015 Left Leg with unknown reasoning. Osteoarthritis Basal cell carcinoma Spinal stenosis Macular degeneration Lumbosacral radiculopathy Idiopathic polyneuropathy Hypertension Hyperlipidemia Hearing loss Gastroesophageal reflux disease Depression Degenerative disc disease, lumbar Coronary artery disease Colon polyps Heart attack 2016 & November 2017 Injury of left shoulder Acute myocardial infarction Surgical History History of laparoscopic appendectomy (05/28/21) Laparoscopic Appendectomy - David Huffman MD, FACS 05/28/2021 History of cleft lip cleft lip repair only. History of colonoscopy History of esophagogastroduodenoscopy (EGD) History of carpal tunnel release bilateral History of laminectomy Hx of local excision of skin lesion from Left eyelid History of heart artery stent total of 3-4 stents. 1-2 stent in 2017 ([facility]), 1 stent in Nov 2017 ([facility]), 1 stent Nov 2018 ([facility]) drug eluting stent placed. History of cardiac catheterization History of placement of ear tubes "History of ear pressure equalization tube insertion" History of tonsillectomy and adenoidectomy History of sinus surgery History of rotator cuff surgery left Family History Mother Cancer Cardiac disorder Colorectal cancer Father Cardiac disorder Myocardial infarction Brother Diabetes Grandmother (Maternal) Diabetes Denies family history of No pertinent family history Ovarian cancer Prostate cancer Breast cancer Social History Smoking Status: Former smoker Tobacco Type: Cigarettes Cigarettes Per Day: 20; Second Hand Exposure: No; Do You Dip or Chew Tobacco: No; Tobacco Cessation Education Requested by Patient: No Hx Alcohol Use: No Hx Substance Use: No Preferred Language: Thai Communication Ability: Impaired Visual Impairment: No Limitations Hearing Ability: Hard of Hearing Mosaic Floor Layer Required: No Beliefs That Will Affect Care: None marital status: Single Current Living Situation: Boarding Home Current Living Situation Comment: [facility] current occupational status: retired current occupation: Retired Other Information That Helps Us Care for You: No Feels Safe at Home: No Is there a partner from a previous relationship who is making you feel unsafe now?: No Any Concerns about Your Family Situation: No Would You Like to Speak to Someone About Your Situation: No Safety Concerns: Feels Safe At This Time Childhood Exposure to Second-Hand Smoke: No Seatbelt Use: always Do you think of yourself as: lesbian/ulrich/homosexual Assistive Devices: Glasses and Hearing Aid - Right Assistive Devices Comment: Partial for upper r/t cleft palate Review of Systems Constitutional: no fever and no body aches Eyes: as per Subjective / HPI Ear, Nose, Mouth, Throat: no ear trauma and no tinnitus Respiratory: no cough and no dyspnea Cardiovascular: no chest pain and no radiating jaw, neck or arm pain Gastrointestinal: no abdominal pain Musculoskeletal: no back pain Integumentary: no acne Neurologic: + falls Psychiatric: + behavioral changes Endocrine: no fatigue Hematologic / Lymphatic: no easy bleeding Allergy / Immunological: no GI upset with certain foods Physical Exam Physical Exam: Constitutional: well developed, well nourished, cooperative and comfortable Eyes: PERRL, conjunctivae normal, anicteric sclerae ENMT: external ear and nose normal, oropharynx normal Neck: trachea midline, no thyromegaly Respiratory: normal respiratory effort, lungs clear to auscultation Cardiovascular: Rate/Rhythm: regular rate and regular rhythm Extremities: no edema Gastrointestinal (Abdomen): Inspection/Auscultation: abdomen normal to inspection Percussion/Palpation: abdomen soft; abdomen nontender Skin: no rash Results & Data Results & Data Vital Signs (Past 12 Hours) Vital Signs Pulse Pulse Resp BP BP Pulse Ox O2 Del Method 08/06/23 13:00 19 110/82 08/06/23 12:30 121/73 08/06/23 12:15 97 Room Air 08/06/23 12:00 17 128/71 08/06/23 12:00 84 08/06/23 11:30 112/77 08/06/23 11:21 68 08/06/23 11:00 85 20 08/06/23 11:00 124/85 98 Room Air 08/06/23 10:30 120/93 08/06/23 10:30 83 19 08/06/23 10:00 83 17 08/06/23 10:00 123/77 08/06/23 09:31 125/69 08/06/23 09:31 87 20 08/06/23 09:30 81 22 08/06/23 09:00 84 16 08/06/23 09:00 114/80 96 Room Air 08/06/23 08:30 128/78 08/06/23 08:30 84 20 08/06/23 08:00 79 16 08/06/23 08:00 117/67 97 Room Air 08/06/23 07:30 134/81 08/06/23 07:30 83 20 98 08/06/23 07:00 84 19 97 08/06/23 07:00 129/76 08/06/23 05:30 80 18 121/82 08/06/23 05:00 90 22 08/06/23 05:00 143/76 H 08/06/23 04:31 87 22 08/06/23 04:30 86 13 129/82 08/06/23 03:30 88 21 124/79 08/06/23 03:00 90 17 110/69 08/06/23 02:52 84 08/06/23 02:30 79 16 115/64 08/06/23 02:00 73 12 121/68 08/06/23 01:30 73 13 114/71 Code Status & VTE Plan VTE Prophylaxis Plan VTE Prophylaxis will be ordered: Yes PG Care Time/CCT Total # of Minutes Spent Total Time Spent with Patient: Total time spent is greater than 50% in coordination of care (as documented) at patient's floor/unit and/or counseling patient: Coding Level of Care Code 23974 INT INP/OBS CARE 375MIN Diagnoses Fall W19.XXXA Injury of right rotator cuff S46.001A Encounter type: initial encounter Chest wall contusion S20.211A Encounter type: initial encounter Laterality: right Cognitive impairment R41.89 HIV disease B20 Terrance Bonnet syndrome H53.16 Hypertension I10 Type 2 diabetes mellitus E11.9 (2) Injury of right rotator cuff Encounter type: initial encounter Qualified Code(s): S46.001A - Unspecified injury of muscle(s) and tendon(s) of the rotator cuff of right shoulder, initial encounter (3) Chest wall contusion Encounter type: initial encounter Laterality: right Qualified Code(s): S20.211A - Contusion of right front wall of thorax, initial encounter
[2023-08-06] MEDS: OXYBUTYNIN CHLORIDE XL 5 MG TABCR PO SCH (13:28)
[2023-08-06] MEDS: HEPARIN SOD 5,000 UNIT/0.5 ML VIAL SQ SCH (13:28)
[2023-08-06] MEDS: CYANOCOBALAMIN (B-12) 500 MCG TABLET PO SCH (13:28)
[2023-08-06] MEDS: buPROPion XL 150 MG TABCR PO SCH (13:28)
[2023-08-06] MEDS: buPROPion XL 300 MG TABCR PO SCH (13:28)
[2023-08-06] MEDS: METOPROLOL SUCC 25MG EXT REL TAB PO SCH (13:29)
[2023-08-06] MEDS: CHOLECALCIFEROL 125 MCG (5,000 UNITS) TAB PO SCH (13:29)
[2023-08-06] MEDS: PANTOprazole 40 MG TAB PO SCH (13:29)
[2023-08-06] MEDS: VENLAFAXINE HCL XR 75 MG CAPXR PO SCH (13:29)
[2023-08-06] MEDS: lisinopril 2.5 MG TAB PO SCH (13:29)
[2023-08-06] MEDS: INSULIN ASPART PER UNIT CHARGE SC SCH (13:30)
[2023-08-06] MEDS: ASPIRIN 81 MG ECTAB PO SCH (22:05)
[2023-08-06] MEDS: ATORVASTATIN 40 MG TAB PO SCH (22:05)
[2023-08-06] MEDS: EZETIMIBE 10 MG TAB PO SCH (22:05)
--- NOTE | 2023-08-07 05:58 | Electrocardiogram Report ---
Test Reason : Blood Pressure : / mmHG Vent. Rate : 073 BPM Atrial Rate : 073 BPM P-R Int : 176 ms QRS Dur : 090 ms QT Int : 390 ms P-R-T Axes : 047 013 030 degrees QTc Int : 429 ms Normal sinus rhythm Normal ECG When compared with ECG of 31-MAY-2023 05:59, ND interval has decreased Confirmed by Obed Manjarrez ([id number]) on 08/07/2023 5:57:37 AM Referred By: REFERRED SELF Confirmed By:Obed Manjarrez
[2023-08-07] MEDS: PNEUMOCOCCAL VACCINE (PCV20) 20-VAL CONJ-DIP CRM/PF 0.5 ML SYR IM ONE (07:11)
[2023-08-07] MEDS: OLANZapine 10 MG/2.1 ML SDV IM ONE (21:16)
--- NOTE | 2023-08-07 22:26 | Hospitalist Progress Note ---
Date of Service August 07, 2023 Assessment & Plan (1) Fall: Plan: Patient suffered multiple falls. WIll have PT eval patient. Patient has been having more hallcuinations recently and appears they have been difficulty handling patient at the facility where he lives. Patient is very confused on 08/07 unsure of cause. 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 (7) Hypertension: Plan: resume home meds (8) Type 2 diabetes mellitus: Plan: resume home meds Admission and Anticipated Discharge Date Admission Date: August 06, 2023 Subjective 68 yo male is confused today. Review of Systems Review of Systems: All systems reviewed & are unremarkable except as noted in HPI & below Physical Exam Physical Exam: Constitutional: well developed, well nourished, cooperative and comfortable Eyes: PERRL, conjunctivae normal, anicteric sclerae ENMT: external ear and nose normal, oropharynx normal Neck: trachea midline, no thyromegaly Respiratory: normal respiratory effort, lungs clear to auscultation Cardiovascular: Rate/Rhythm: regular rate and regular rhythm Extremities: no edema Gastrointestinal (Abdomen): Inspection/Auscultation: abdomen normal to inspection Percussion/Palpation: abdomen soft; abdomen nontender Skin: no rash Results & Data Results & Data Vital Signs (Past 12 Hours) Vital Signs Temp Pulse Resp BP Pulse Ox O2 Del Method 08/07/23 19:18 36.6 C 78 18 118/74 98 Room Air 08/07/23 15:16 36.7 C 84 18 144/85 H 95 Room Air PG Care Time/CCT Total # of Minutes Spent Total Time Spent with Patient: Total time spent is greater than 50% in coordination of care (as documented) at patient's floor/unit and/or counseling patient: Coding Level of Care Code 60291 SUB INP/OBS CARE 2/35MIN Diagnoses Fall W19.XXXA Injury of right rotator cuff S46.001A Encounter type: initial encounter Chest wall contusion S20.211A Encounter type: initial encounter Laterality: right Cognitive impairment R41.89 HIV disease B20 Terrance Bonnet syndrome H53.16 Hypertension I10 Type 2 diabetes mellitus E11.9 (2) Injury of right rotator cuff Encounter type: initial encounter Qualified Code(s): S46.001A - Unspecified injury of muscle(s) and tendon(s) of the rotator cuff of right shoulder, initial encounter (3) Chest wall contusion Encounter type: initial encounter Laterality: right Qualified Code(s): S20.211A - Contusion of right front wall of thorax, initial encounter
[2023-08-08 00:37] LABS: Amphetamines+Metham, Urine Neg (Neg); Barbiturates, Urine Neg (Neg); Benzodiazepine, Urine Neg (Neg); Cocaine, Urine Neg (Neg); MDMA (Ecstacy), Urine Pos (Neg); Marijuana, Urine Neg (Neg); Methadone, Urine Neg (Neg); Opiate, Urine Neg (Neg); Phencyclidine, Urine Neg (Neg)
--- NOTE | 2023-08-08 07:46 | Pharmacy Report ---
Pharmacy Glycemic Sign Off Nt - Date of Service August 08, 2023 - Assessment & Plan ASSESSMENT: * Pharmacy was consulted by Dr. Sequeira on 08/06/23 for glycemic control and to write orders per [facility] inpatient glycemic control protocol. * Major changes made by pharmacy to antidiabetic regimen include: * addition of Novolog * Patient has been receiving/requiring 0 units of insulin per day for adequate glycemic control * BSGs ranging 71-129 mg/dl * Regimen has only required minor adjustments over the past 48hrs to achieve this level of control * Do not anticipate further changes in patient status that would quickly deteriorate glycemic control (i.e. patient to be NPO for upcoming procedure, steroids tapering, starting tube feedings, etc). PLAN FOR INPATIENT GLYCEMIC CONTROL: No changes needed to current regimen. * Hold basal * Continue NovoLog per scale ACHS/Q6hrs while NPO * Goal range = 110-140 mg/dl * CF = 30 mg/dl/unit * No carb coverage * Pharmacy is signing off of glycemic consult and will no longer be making adjustments to inpatient regimen. Please feel free to re-consult if needed. Thank you.
[2023-08-08 08:22] LABS: Hematocrit (blood only) 39.6 % (42.0-52.0); Hemoglobin 13.1 g/dl (14.0-18.0); Mean Corpuscular Hgb Conc 33.1 g/dL (32.0-36.0); Mean Corpuscular Volume 99.7 fL (80.0-100.0); Mean Platelet Volume 9.5 fL (9.4-12.4); Platelet Count 149 K/uL (130-400); RDW Coefficient of Variation 12.5 % (11.5-14.5); RDW Standard Deviation 46.1 fL (36.4-46.3); Red Blood Count 3.97 M/uL (4.70-6.10); White Blood Count 5.36 K/ul (4.8-10.8)
[2023-08-08 08:39] LABS: BUN Creatinine Ratio 21.8 (10-20); Calcium 9.3 mg/dl (8.6-10.3); Creatinine Clr Calc Pharmacy 82.1 ml/min; Est GFR (African American) 101.3 ml/min; Est GFR (Non-African American) 87.4 ml/min; Potassium 3.9 mmol/L (3.5-5.1)
[2023-08-08] MEDS: BIKTARVY PO SCH (18:25)
--- NOTE | 2023-08-08 22:19 | Hospitalist Progress Note ---
Date of Service August 08, 2023 Assessment & Plan (1) Fall: Plan: Patient suffered multiple falls. WIll have PT eval patient. Patient has been having more hallcuinations recently and appears they have been difficulty handling patient at the facility where he lives. Patient is very confused on 08/07 unsure of cause of confusion. confirming ecstasy in drug screen. Appears to be improving and patient was completely lucid on 08/07. If contnues to be lucid on 08/08, may consider discharge. 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 (7) Hypertension: Plan: resume home meds (8) Type 2 diabetes mellitus: Plan: resume home meds Admission and Anticipated Discharge Date Admission Date: August 06, 2023 Subjective 68 yo m reports no new symptoms. Patient knows he is in thre hospital for confusion. Review of Systems Review of Systems: All systems reviewed & are unremarkable except as noted in HPI & below Physical Exam Physical Exam: Constitutional: well developed, well nourished, cooperative and comfortable Eyes: PERRL, conjunctivae normal, anicteric sclerae ENMT: external ear and nose normal, oropharynx normal Neck: trachea midline, no thyromegaly Respiratory: normal respiratory effort, lungs clear to auscultation Cardiovascular: Rate/Rhythm: regular rate and regular rhythm Extremities: no edema Gastrointestinal (Abdomen): Inspection/Auscultation: abdomen normal to inspection Percussion/Palpation: abdomen soft; abdomen nontender Skin: no rash Psych: oriented x4, more lucid Results & Data Results & Data Vital Signs (Past 12 Hours) Vital Signs Temp Pulse Resp BP Pulse Ox O2 Del Method 08/08/23 20:16 36.7 C 92 H 19 120/74 97 Room Air 08/08/23 17:30 36.4 C L 84 16 110/66 97 Room Air PG Care Time/CCT Total # of Minutes Spent Total Time Spent with Patient: Total time spent is greater than 50% in coordination of care (as documented) at patient's floor/unit and/or counseling patient: Coding Level of Care Code 46507 SUB INP/OBS CARE 35MIN Diagnoses Fall W19.XXXA Injury of right rotator cuff S46.001A Encounter type: initial encounter Chest wall contusion S20.211A Encounter type: initial encounter Laterality: right Cognitive impairment R41.89 HIV disease B20 Terrance Bonnet syndrome H53.16 Hypertension I10 Type 2 diabetes mellitus E11.9 (2) Injury of right rotator cuff Encounter type: initial encounter Qualified Code(s): S46.001A - Unspecified injury of muscle(s) and tendon(s) of the rotator cuff of right shoulder, initial encounter (3) Chest wall contusion Encounter type: initial encounter Laterality: right Qualified Code(s): S20.211A - Contusion of right front wall of thorax, initial encounter
[2023-08-08] MEDS: OLANZAPINE 2.5 MG TAB PO STA (22:47)
[2023-08-09] MEDS: OLANZapine 10 MG/2.1 ML SDV IM STA (00:01)
[2023-08-09 08:23] LABS: Hematocrit (blood only) 40.3 % (42.0-52.0); Hemoglobin 13.6 g/dl (14.0-18.0); Mean Corpuscular Hemoglobin 33.3 pg (25.0-34.0); Mean Corpuscular Hgb Conc 33.7 g/dL (32.0-36.0); Mean Corpuscular Volume 98.8 fL (80.0-100.0); Mean Platelet Volume 9.5 fL (9.4-12.4); Platelet Count 170 K/uL (130-400); RDW Coefficient of Variation 12.5 % (11.5-14.5); RDW Standard Deviation 45.1 fL (36.4-46.3); Red Blood Count 4.08 M/uL (4.70-6.10); White Blood Count 6.53 K/ul (4.8-10.8)
[2023-08-09 08:42] LABS: BUN Creatinine Ratio 19.8 (10-20); Calcium 9.4 mg/dl (8.6-10.3); Creatinine Clr Calc Pharmacy 64.4 ml/min; Est GFR (African American) 77.6 ml/min; Est GFR (Non-African American) 66.9 ml/min; Potassium 3.8 mmol/L (3.5-5.1)
--- NOTE | 2023-08-09 09:03 | Hospitalist Progress Note ---
Date of Service August 09, 2023 Assessment & Plan (1) Fall: Plan: Patient suffered multiple falls. 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 He does have hallu cinations associate with vision loss. confirming ecstasy in drug screen. His previous cognitive impairment due to atrophy does have injury contusion to his right shoulder and chest wall, no fractures on imaging, pain control and therapy evaluations are ordered will check B1 and start supplementation check CD4 if low consider opportunistic infections (2) HIV disease: Plan: recume home meds (3) Terrance Bonnet syndrome: Plan: Hallucinations associate with vision loss. (4) Hypertension: Plan: Cardiovascular disease treated with aspirin atorvastatin ezetimibe lisinopril metoprolol (5) Type 2 diabetes mellitus: Plan: Typically on empagliflozin glipizide Converted to insulin sliding scale Most recent A1c is 6.8 Plan may need snf placement if function is low Admission and Anticipated Discharge Date Admission Date: August 06, 2023 Subjective pt had some improvement in mental status, still very weak and not performing at his usual state as per his description family is considering snf will check cd4 count if low will consider looking for opportunistic infections, check B1 and start supplementation Physical Exam Physical Exam: awake and alert some confusion no focal loss of complaints Results & Data Results & Data Vital Signs (Past 12 Hours) Vital Signs Temp Pulse Resp BP Pulse Ox O2 Del Method 08/09/23 07:55 97.9 F 70 20 93/58 L 96 Room Air Laboratory Results review cbc review prp PG Care Time/CCT Total # of Minutes Spent Total Time Spent with Patient: Total time spent is greater than 50% in coordination of care (as documented) at patient's floor/unit and/or counseling patient: Coding Level of Care Code 31558 SUB INP/OBS CARE 2/35MIN Diagnoses Fall W19.XXXA HIV disease B20 Terrance Bonnet syndrome H53.16 Hypertension I10 Type 2 diabetes mellitus E11.9
[2023-08-09] MEDS: ACETAMINOPHEN 325 MG TAB PO PRN (20:41)
[2023-08-09] MEDS: POLYETHYLENE (MIRALAX) 17 GM PACK PO PRN (20:42)
[2023-08-10 07:36] LABS: Hematocrit (blood only) 40.7 % (42.0-52.0); Hemoglobin 14.2 g/dl (14.0-18.0); Mean Corpuscular Hemoglobin 33.9 pg (25.0-34.0); Mean Corpuscular Hgb Conc 34.9 g/dL (32.0-36.0); Mean Corpuscular Volume 97.1 fL (80.0-100.0); Mean Platelet Volume 9.2 fL (9.4-12.4); Platelet Count 179 K/uL (130-400); RDW Coefficient of Variation 12.7 % (11.5-14.5); RDW Standard Deviation 45.1 fL (36.4-46.3); Red Blood Count 4.19 M/uL (4.70-6.10)
[2023-08-10] MEDS: THIAMINE HCL 100 MG TAB PO SCH (07:59)
[2023-08-10 08:12] LABS: BUN Creatinine Ratio 21.9 (10-20); Calcium 9.4 mg/dl (8.6-10.3); Creatinine Clr Calc Pharmacy 68.1 ml/min; Est GFR (Non-African American) 71.6 ml/min; Potassium 4.3 mmol/L (3.5-5.1)
--- NOTE | 2023-08-10 16:25 | Hospitalist Progress Note ---
Date of Service August 10, 2023 Assessment & Plan (1) Fall: Plan: Patient suffered multiple falls. 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 He does have hallu cinations associate with vision loss. confirming ecstasy in drug screen. (maybe false positive from Wellbutrin) His previous cognitive impairment due to atrophy does have injury contusion to his right shoulder and chest wall, no fractures on imaging, pain control and therapy evaluations are ordered pending B1 and continue supplementation check CD4 if low consider opportunistic infections (2) HIV disease: Plan: recume home meds bictegravir/emtricitabine (3) Terrance Bonnet syndrome: Plan: Hallucinations associate with vision loss. chronic and stable (4) Hypertension: Plan: Cardiovascular disease chronic and stable - aspirin atorvastatin ezetimibe lisinopril metoprolol (5) Type 2 diabetes mellitus: Plan: Typically on empagliflozin glipizide Converted to insulin sliding scale Most recent A1c is 6.8 Plan may need snf placement family is supportive of more supervised environment Admission and Anticipated Discharge Date Admission Date: August 06, 2023 Subjective pt with continued improvement in mental status, still very weak and not performing at his usual state family is considering snf pending cd4 count, if low will consider looking for opportunistic infections, check B1 and start supplementation Physical Exam Physical Exam: pt is awake and alert he has healing wounds on legs, none look particularity worrisome for infection cardiac is regular, lungs are clear Results & Data Results & Data Vital Signs (Past 12 Hours) Vital Signs Temp Pulse Resp BP BP Pulse Ox O2 Del Method 08/10/23 16:00 97.7 F 86 18 99/64 L 96 Room Air 08/10/23 07:40 97.5 F L 70 18 105/64 96 Room Air Laboratory Results review cbc review chesmisty PG Care Time/CCT Total # of Minutes Spent Total Time Spent with Patient: Total time spent is greater than 50% in coordination of care (as documented) at patient's floor/unit and/or counseling patient: Coding Level of Care Code 84416 SUB INP/OBS CARE MIN Diagnoses Fall W19.XXXA HIV disease B20 Terrance Bonnet syndrome H53.16 Hypertension I10 Type 2 diabetes mellitus E11.9
[2023-08-10] MEDS: traMADol HCL 50 MG TABLET PO PRN (17:18)
--- NOTE | 2023-08-11 07:50 | Ultrasound Report ---
US arterial duplex LE BI HISTORY: 68 years-old Male c/o claudication like symptoms, wounds acute pain of the lower legs with peripheral arterial disease COMPARISON: 02/14/2023 TECHNIQUE: Multiple real-time sonographic images of the lower femoral and arterial structures were ob tained assessing grayscale appearance, color and spectral flow FINDINGS: RIGHT: Diffuse atherosclerosis. Predominantly triphasic waveforms without arterial occlusion or significantl y elevated peak systolic velocities. Biphasic waveform in the lower leg. LEFT: Diffuse atherosclerosis. Probably triphasic waveforms without arterial occlusion or significantly shanta vated peak systolic velocities. Biphasic waveforms in the lower leg. IMPRESSION: Atherosclerosis without arterial occlusion or evidence of high-grade stenosis. ACT 112: Negative or not required by law. The above report was generated using voice recognition software. It may contain grammatical, syntax o r spelling errors. Electronically signed by: Nima Stephens M.D. 08/11/2023 7:49 AM
[2023-08-12] MEDS: LINEZOLID 600 MG/300 ML BAG IV SCH (10:57)
[2023-08-12 15:43] LABS: MDA negative; MDEA negative; MDMA (Ecstasy) Urine, Confirm negative
--- NOTE | 2023-08-12 16:13 | Hospitalist Progress Note ---
Date of Service August 12, 2023 Assessment & Plan (1) Fall: Plan: Patient suffered multiple falls. 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 He does have hallucinations associate with vision loss. confirming ecstasy in drug screen. 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 Typically on empagliflozin, glipizide. Now on insulin sliding scale. Most recent A1c is 6.8 Plan may need snf placement. Family is supportive of more supervised environment Admission and Anticipated Discharge Date Admission Date: August 06, 2023 Subjective Alert. Oriented to name only. The nurse states that he gets out of bed often and falls around. He appears to have baseline dementia which could be Warnicke's encephalopathy from chronic alcohol abuse. Linezolid has been started for the enterococcal UTI. He is allergic to penicillin. Effexor, tramadol, bupropion on hold while he is on linezolid. Jzinu-[id number] glucose 131. Review of Systems 2 Review of Systems: The patient is unable to reliably answer any questions regarding review of systems at this time Physical Exam 2 Physical Exam: General-alert but disoriented. He appears to have baseline dementia. No fever. HEENT-head atraumatic and normocephalic, pupils equal and reactive to light, extraocular muscles intact Neck-no lymphadenopathy or thyromegaly, trachea midline Chest-clear to auscultation. No rales, wheezing or rhonchi Cardiac-regular rate and rhythm, normal S1 and S2 Abdomen-normal bowel sounds, no hepatosplenomegaly Extremities-no cyanosis, clubbing, or edema Neuro-cranial nerves II through XII intact, motor and sensory function within normal limits, strength symmetrical, no focal deficits Psych-pleasant. Baseline dementia Results & Data Results & Data Vital Signs (Past 12 Hours) Vital Signs Temp Pulse Resp BP Pulse Ox O2 Del Method 08/12/23 14:36 36.7 C 93 H 18 109/71 95 Room Air Laboratory Results 08/10/23 07:15 08/10/23 07:15 PG Care Time/CCT Total # of Minutes Spent Total Time Spent with Patient: Total time spent is greater than 50% in coordination of care (as documented) at patient's floor/unit and/or counseling patient: Coding Level of Care Code 87155 SUB INP/OBS CARE 3/50MIN Diagnoses Fall W19.XXXA HIV disease B20 Terrance Bonnet syndrome H53.16 Hypertension I10 Type 2 diabetes mellitus E11.9
[2023-08-12 19:12] LABS: LSP % Cells Analyzed CD4 34 % (30-61); LSP Absolute Ct CD4 463 cells/uL (490-1740); LSP Lymphocytes Absolute 1379 cells/uL (850-3900)
[2023-08-13 06:50] LABS: Basophils # (auto) 0.05 K/uL (0.00-0.20); Basophils % (auto) 0.9 %; Eosinophils # (auto) 0.35 K/uL (0.00-0.50); Hematocrit (blood only) 40.9 % (42.0-52.0); Hemoglobin 13.5 g/dl (14.0-18.0); Immature Granulocytes # (auto) 0.02 K/uL (0.01-0.20); Immature Granulocytes % (auto) 0.3 %; Lymphocytes # (auto) 1.66 K/uL (1.20-3.40); Lymphocytes % (auto) 28.6 %; Mean Corpuscular Hemoglobin 32.7 pg (25.0-34.0); Mean Platelet Volume 9.3 fL (9.4-12.4); Monocytes # (auto) 0.74 K/uL (0.11-0.59); Monocytes % (auto) 12.8 %; Neutrophils # (auto) 2.98 K/uL (1.40-6.50); Neutrophils % (auto) 51.4 %; Platelet Count 190 K/uL (130-400); RDW Coefficient of Variation 12.4 % (11.5-14.5); RDW Standard Deviation 45.3 fL (36.4-46.3); Red Blood Count 4.13 M/uL (4.70-6.10)
[2023-08-13 07:12] LABS: BUN Creatinine Ratio 23.1 (10-20); Calcium 9.4 mg/dl (8.6-10.3); Creatinine Clr Calc Pharmacy 66.2 ml/min; Est GFR (African American) 80.2 ml/min; Est GFR (Non-African American) 69.2 ml/min; Potassium 4.1 mmol/L (3.5-5.1)
[2023-08-13] MEDS: ACETAMINOPHEN 500 MG TAB PO PRN (15:42)
--- NOTE | 2023-08-13 17:17 | Hospitalist Progress Note ---
Date of Service August 13, 2023 Assessment & Plan (1) Fall: Plan: Patient suffered multiple falls. 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 He does have hallu cinations associate with vision loss. confirming ecstasy in drug screen. (maybe false positive from Wellbutrin) His previous cognitive impairment due to atrophy does have injury contusion to his right shoulder and chest wall, no fractures on imaging, pain control and therapy evaluations are ordered pending B1 and continue supplementation check CD4 463 Concern for metabolic encephalopathy from urinary tract infection present on admission patient found to have Enterococcus faecalis urinary tract infection which is sensitive to many medications currently placed on linezolid IV will likely de-escalate to wards and oral agent at 08/14/2023 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 Typically on empagliflozin, glipizide. Now on insulin sliding scale. Most recent A1c is 6.8 Plan may need snf placement. Family is supportive of more supervised environment Admission and Anticipated Discharge Date Admission Date: August 06, 2023 Subjective Alert. Oriented to name , he is oriented that he is not at home could be Warnicke's encephalopathy from chronic alcohol abuse. Linezolid has been started for the enterococcal UTI. He is allergic to penicillin. Effexor, tramadol, bupropion on hold while he is on linezolid. Physical Exam Physical Exam: pt is awake and alert he has healing wounds on legs, none look particularity worrisome for infection cardiac is regular, lungs are clear Results & Data Results & Data Vital Signs (Past 12 Hours) Vital Signs Temp Pulse Resp BP Pulse Ox O2 Del Method 08/13/23 16:22 97.2 F L 66 18 104/64 97 Room Air 08/13/23 08:34 97.5 F L 64 18 111/69 99 Room Air Laboratory Results Enterococcus faecalis urinary tract infection initiated on antibiotic therapy Reviewed chemistry Reviewed yqtim-de-aimp glucose PG Care Time/CCT Total # of Minutes Spent Total Time Spent with Patient: Total time spent is greater than 50% in coordination of care (as documented) at patient's floor/unit and/or counseling patient: Coding Level of Care Code 87867 SUB INP/OBS CARE 2/35MIN Diagnoses Fall W19.XXXA HIV disease B20 Terrance Bonnet syndrome H53.16 Hypertension I10 Type 2 diabetes mellitus E11.9
--- NOTE | 2023-08-14 16:47 | Hospitalist Progress Note ---
Date of Service August 14, 2023 Assessment & Plan (1) Fall: Plan: Patient suffered multiple falls. 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 He does have hallu cinations associate with vision loss. ecstasy in drug screen. (maybe false positive from Wellbutrin) His previous cognitive impairment due to atrophy does have injury contusion to his right shoulder and chest wall, no fractures on imaging, pain control and therapy evaluations are ordered pending B1 and continue supplementation check CD4 463 Concern for metabolic encephalopathy from urinary tract infection present on admission patient found to have Enterococcus faecalis urinary tract infection which is sensitive to many medications currently placed on linezolid IV will likely de-escalate to wards and oral agent at 08/14/2023-levaquin 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 Typically on empagliflozin, glipizide. Now on insulin sliding scale. Most recent A1c is 6.8 Plan may need snf placement. Family is supportive of more supervised environment Admission and Anticipated Discharge Date Admission Date: August 06, 2023 Subjective Alert. Oriented to name , he is oriented that he is not at home could be Wernicke's encephalopathy from chronic alcohol abuse. Linezolid has been started for the enterococcal UTI. He is allergic to penicillin. will be on levaquin Physical Exam Physical Exam: pt is awake and alert he has healing wounds on legs, none look particularity worrisome for infection cardiac is regular, lungs are clear Results & Data Results & Data Vital Signs (Past 12 Hours) Vital Signs Temp Pulse Resp BP BP Pulse Ox O2 Del Method 08/14/23 14:13 98.1 F 71 18 104/60 94 Room Air 08/14/23 07:48 98.2 F 63 18 111/71 95 Room Air PG Care Time/CCT Total # of Minutes Spent Total Time Spent with Patient: Total time spent is greater than 50% in coordination of care (as documented) at patient's floor/unit and/or counseling patient: Coding Level of Care Code 63515 SUB INP/OBS CARE 2/35MIN Diagnoses Fall W19.XXXA HIV disease B20 Terrance Bonnet syndrome H53.16 Hypertension I10 Type 2 diabetes mellitus E11.9
[2023-08-14] MEDS: levoFLOXacin 500 MG TAB PO STA (17:50)
[2023-08-15] MEDS: levoFLOXacin 500 MG TAB PO SCH (11:19)
--- NOTE | 2023-08-15 16:44 | Hospitalist Progress Note ---
Date of Service August 15, 2023 Assessment & Plan (1) Fall: Plan: Patient suffered multiple falls. 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 He does have hallu cinations associate with vision loss. ecstasy in drug screen. (maybe false positive from Wellbutrin) His previous cognitive impairment due to atrophy does have injury contusion to his right shoulder and chest wall, no fractures on imaging, pain control and therapy evaluations are ordered pending B1 and continue supplementation check CD4 463 Concern for metabolic encephalopathy from urinary tract infection present on admission patient found to have Enterococcus faecalis urinary tract infection which is sensitive to many medications currently placed on linezolid IV will likely de-escalate to wards and oral agent at 08/14/2023-levaquin 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 Typically on empagliflozin, glipizide. Now on insulin sliding scale. Most recent A1c is 6.8 Plan need snf placement. Family is supportive of more supervised environment Admission and Anticipated Discharge Date Admission Date: August 06, 2023 Subjective Alert. Oriented to name , he is oriented that he is not at home could be Wernicke's encephalopathy from chronic alcohol abuse. enterococcal UTI. He is allergic to penicillin, transition to p.o. levaquin 08/14/2022 no new changes in care plan or patient condition Physical Exam Physical Exam: pt is awake and alert he has healing wounds on legs, none look particularity worrisome for infection cardiac is regular, lungs are clear Results & Data Results & Data Vital Signs (Past 12 Hours) Vital Signs Temp Pulse Resp BP Pulse Ox O2 Del Method 08/15/23 15:26 98.1 F 75 18 95/64 L 93 Room Air 04/17/24 08:10 99.0 F 75 18 110/72 97 Room Air PG Care Time/CCT Total # of Minutes Spent Total Time Spent with Patient: Total time spent is greater than 50% in coordination of care (as documented) at patient's floor/unit and/or counseling patient: Coding Level of Care Code 59228 SUB INP/OBS CARE 05/24MIN Diagnoses Fall W19.XXXA HIV disease B20 Terrance Bonnet syndrome H53.16 Hypertension I10 Type 2 diabetes mellitus E11.9
[2023-08-16] MEDS: MELATONIN 3 MG TAB PO PRN (20:04)
--- NOTE | 2023-08-16 21:53 | Hospitalist Progress Note ---
Date of Service August 16, 2023 Assessment & Plan (1) Fall: Plan: Patient suffered multiple falls. 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 He does have hallu cinations associate with vision loss. ecstasy in drug screen. 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 will continue above treatment. 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 Typically on empagliflozin, glipizide. Now on insulin sliding scale. Most recent A1c is 6.8 Plan need snf placement. Family is supportive of more supervised environment Admission and Anticipated Discharge Date Admission Date: August 06, 2023 Subjective 68 yo male is confused. Review of Systems Review of Systems: All systems reviewed & are unremarkable except as noted in HPI & below Physical Exam Physical Exam: Constitutional: well developed, well nourished, cooperative and comfortable Eyes: PERRL, conjunctivae normal, anicteric sclerae ENMT: external ear and nose normal, oropharynx normal Neck: trachea midline, no thyromegaly Respiratory: normal respiratory effort, lungs clear to auscultation Cardiovascular: Rate/Rhythm: regular rate and regular rhythm Extremities: no edema Gastrointestinal (Abdomen): Inspection/Auscultation: abdomen normal to inspection Percussion/Palpation: abdomen soft; abdomen nontender Skin: no rash Psych: confused Results & Data Results & Data Vital Signs (Past 12 Hours) Vital Signs Temp Pulse Resp BP Pulse Ox O2 Del Method 08/16/23 21:10 Room Air 08/16/23 19:56 36.6 C 95 H 18 111/76 97 Room Air 08/16/23 15:26 36.7 C 88 18 109/68 96 Room Air PG Care Time/CCT Total # of Minutes Spent Total Time Spent with Patient: Total time spent is greater than 50% in coordination of care (as documented) at patient's floor/unit and/or counseling patient: Coding Level of Care Code 45106 SUB INP/OBS CARE 2/35MIN Diagnoses Fall W19.XXXA HIV disease B20 Terrance Bonnet syndrome H53.16 Hypertension I10 Type 2 diabetes mellitus E11.9 Time Spent (min) 35
[2023-08-17 06:57] LABS: Hematocrit (blood only) 43.2 % (42.0-52.0); Hemoglobin 14.9 g/dl (14.0-18.0); Mean Corpuscular Hemoglobin 33.2 pg (25.0-34.0); Mean Corpuscular Hgb Conc 34.5 g/dL (32.0-36.0); Mean Corpuscular Volume 96.2 fL (80.0-100.0); Mean Platelet Volume 9.4 fL (9.4-12.4); Platelet Count 259 K/uL (130-400); RDW Coefficient of Variation 12.2 % (11.5-14.5); RDW Standard Deviation 43.8 fL (36.4-46.3); Red Blood Count 4.49 M/uL (4.70-6.10); White Blood Count 7.04 K/ul (4.8-10.8)
[2023-08-17 07:17] LABS: Anion Gap 9 (3-11); BUN Creatinine Ratio 30.7 (10-20); Blood Urea Nitrogen 35 mg/dl (6-23); C Reactive Protein < 0.50 mg/dl (0-0.5); Carbon Dioxide 22 mmol/L (21-32); Chloride 103 mmol/L (98-107); Creatinine Clr Calc Pharmacy 62.7 ml/min; Est GFR (African American) 75.1 ml/min; Est GFR (Non-African American) 64.8 ml/min; Glucose 177 mg/dl (70-99(Fasting)); Potassium 4.3 mmol/L (3.5-5.1); Sodium 134 mmol/L (136-145)
--- NOTE | 2023-08-17 23:07 | Hospitalist Progress Note ---
Date of Service August 17, 2023 Assessment & Plan (1) Fall: Plan: Patient suffered multiple falls. 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 He does have hallu cinations associate with vision loss. ecstasy in drug screen. 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 will continue above treatment. Patient remains confused. 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 Typically on empagliflozin, glipizide. Now on insulin sliding scale. Most recent A1c is 6.8 Plan need snf placement. Family is supportive of more supervised environment Admission and Anticipated Discharge Date Admission Date: August 06, 2023 Subjective 68 yo male remains confused. Review of Systems Review of Systems: All systems reviewed & are unremarkable except as noted in HPI & below Physical Exam Physical Exam: Constitutional: well developed, well nourished, cooperative and comfortable Eyes: PERRL, conjunctivae normal, anicteric sclerae ENMT: external ear and nose normal, oropharynx normal Neck: trachea midline, no thyromegaly Respiratory: normal respiratory effort, lungs clear to auscultation Cardiovascular: Rate/Rhythm: regular rate and regular rhythm Extremities: no edema Gastrointestinal (Abdomen): Inspection/Auscultation: abdomen normal to ins pection Percussion/Palpation: abdomen soft; abdomen nontender Skin: no rash Psych: confused Results & Data Results & Data Vital Signs (Past 12 Hours) Vital Signs Temp Pulse Resp BP Pulse Ox O2 Del Method 08/17/23 19:45 Room Air 08/17/23 14:42 36.6 C 99 H 17 102/71 95 Room Air PG Care Time/CCT Total # of Minutes Spent Total Time Spent with Patient: Total time spent is greater than 50% in coordination of care (as documented) at patient's floor/unit and/or counseling patient: Coding Level of Care Code 10019 SUB INP/OBS CARE 2/35MIN Diagnoses Fall W19.XXXA HIV disease B20 Terrance Bonnet syndrome H53.16 Hypertension I10 Type 2 diabetes mellitus E11.9
[2023-08-18 10:12] LABS: Base Excess VBG 2.5 mEq/L; HCO3 VBG 29 mmol/L; Oxygen Saturation VBG < 60.0 %; PCO2 VBG 53 mmHg (38-50); PO2 VBG 26 mmHg; pH VBG 7.35 (7.36-7.41)
[2023-08-18 10:19] LABS: Basophils # (auto) 0.04 K/uL (0.00-0.20); Basophils % (auto) 0.7 %; Eosinophils # (auto) 0.25 K/uL (0.00-0.50); Eosinophils % (auto) 4.7 %; Hematocrit (blood only) 41.3 % (42.0-52.0); Immature Granulocytes # (auto) 0.03 K/uL (0.01-0.20); Immature Granulocytes % (auto) 0.6 %; Lymphocytes # (auto) 1.21 K/uL (1.20-3.40); Lymphocytes % (auto) 22.5 %; Mean Corpuscular Hemoglobin 33.3 pg (25.0-34.0); Mean Corpuscular Hgb Conc 33.9 g/dL (32.0-36.0); Mean Corpuscular Volume 98.1 fL (80.0-100.0); Mean Platelet Volume 9.2 fL (9.4-12.4); Monocytes # (auto) 0.59 K/uL (0.11-0.59); Neutrophils # (auto) 3.25 K/uL (1.40-6.50); Neutrophils % (auto) 60.5 %; Platelet Count 214 K/uL (130-400); RDW Coefficient of Variation 12.6 % (11.5-14.5); RDW Standard Deviation 45.3 fL (36.4-46.3); Red Blood Count 4.21 M/uL (4.70-6.10); White Blood Count 5.37 K/ul (4.8-10.8)
[2023-08-18 10:28] LABS: Alanine Aminotransferase 50 U/L (7-52); Albumin Globulin Ratio 1.1 (0.9-2); Albumin Level 3.7 gm/dl (3.4-5.0); Alkaline Phosphatase 88 U/L (34-104); Anion Gap 5 (3-11); Aspartate Aminotransferase 33 U/L (13-39); BUN Creatinine Ratio 24.8 (10-20); Bilirubin,Total 0.6 mg/dl (0.2-1.0); Blood Urea Nitrogen 27 mg/dl (6-23); C Reactive Protein < 0.50 mg/dl (0-0.5); Calcium 9.6 mg/dl (8.6-10.3); Carbon Dioxide 28 mmol/L (21-32); Chloride 103 mmol/L (98-107); Creatinine Clr Calc Pharmacy 65.6 ml/min; Est GFR (African American) 79.3 ml/min; Est GFR (Non-African American) 68.4 ml/min; Globulin 3.4 gm/dl (2.5-4.0); Glucose 223 mg/dl (70-99(Fasting)); Potassium 4.1 mmol/L (3.5-5.1); Sodium 136 mmol/L (136-145); Total Protein 7.1 gm/dl (6.0-8.3)
--- NOTE | 2023-08-18 21:05 | Hospitalist Progress Note ---
Date of Service August 18, 2023 Assessment & Plan (1) Fall: Plan: Patient suffered multiple falls. 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 He does have hallu cinations associate with vision loss. ecstasy in drug screen. 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 will continue above treatment. Patient remains confused. 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 Typically on empagliflozin, glipizide. Now on insulin sliding scale. Most recent A1c is 6.8 Plan need snf placement. Family is supportive of more supervised environment Admission and Anticipated Discharge Date Admission Date: August 06, 2023 Subjective Patient remains confused. Review of Systems Review of Systems: All systems reviewed & are unremarkable except as noted in HPI & below Physical Exam Physical Exam: Constitutional: well developed, well nourished, cooperative and comfortable Eyes: PERRL, conjunctivae normal, anicteric sclerae ENMT: external ear and nose normal, oropharynx normal Neck: trachea midline, no thyromegaly Respiratory: normal respiratory effort, lungs clear to auscultation Cardiovascular: Rate/Rhythm: regular rate and regular rhythm Extremities: no edema Gastrointestinal (Abdomen): Inspection/Auscultation: abdomen normal to inspection Percussion/Palpation: abdomen soft; abdomen nontender Skin: no rash Psych: confused Results & Data Results & Data Vital Signs (Past 12 Hours) Vital Signs Temp Pulse Resp BP Pulse Ox O2 Del Method 08/18/23 16:00 Room Air 08/18/23 15:13 36.3 C L 72 16 120/78 97 Room Air PG Care Time/CCT Total # of Minutes Spent Total Time Spent with Patient: Total time spent is greater than 50% in coordination of care (as documented) at patient's floor/unit and/or counseling patient: Coding Level of Care Code 54051 SUB INP/OBS CARE 2/35MIN Diagnoses Fall W19.XXXA HIV disease B20 Terrance Bonnet syndrome H53.16 Hypertension I10 Type 2 diabetes mellitus E11.9
[2023-08-19] MEDS: ACETAMINOPHEN 325 MG TAB PO SCH (17:02)
[2023-08-19] MEDS: CELECOXIB 100 MG CAP PO SCH (19:38)
--- NOTE | 2023-08-19 20:32 | Hospitalist Progress Note ---
Date of Service August 19, 2023 Assessment & Plan (1) Fall: Plan: Patient suffered multiple falls. 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 He does have hallu cinations associate with vision loss. ecstasy in drug screen. 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 will continue above treatment. Patient remains confused. 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 Typically on empagliflozin, glipizide. Now on insulin sliding scale. Most recent A1c is 6.8 Plan need snf placement. Family is supportive of more supervised environment Admission and Anticipated Discharge Date Admission Date: August 06, 2023 Subjective Patient appears less confused. Review of Systems Review of Systems: All systems reviewed & are unremarkable except as noted in HPI & below Physical Exam Physical Exam: Constitutional: well developed, well nourished, cooperative and comfortable Eyes: PERRL, conjunctivae normal, anicteric sclerae ENMT: external ear and nose normal, oropharynx normal Neck: trachea midline, no thyromegaly Respiratory: normal respiratory effort, lungs clear to auscultation Cardiovascular: Rate/Rhythm: regular rate and regular rhythm Extremities: no edema Gastrointestinal (Abdomen): Inspection/Auscultation: abdomen normal to inspection Percussion/Palpation: abdomen soft; abdomen nontender Skin: no rash Psych: confused Results & Data Results & Data Vital Signs (Past 12 Hours) Vital Signs Temp Pulse Resp BP Pulse Ox O2 Del Method 08/19/23 19:28 36.4 C L 77 16 101/62 95 Room Air 08/19/23 14:52 36.5 C 79 16 99/66 L 97 Room Air PG Care Time/CCT Total # of Minutes Spent Total Time Spent with Patient: Total time spent is greater than 50% in coordination of care (as documented) at patient's floor/unit and/or counseling patient: Coding Level of Care Code 83193 SUB INP/OBS CARE 2/35MIN Diagnoses Fall W19.XXXA HIV disease B20 Terrance Bonnet syndrome H53.16 Hypertension I10 Type 2 diabetes mellitus E11.9
--- NOTE | 2023-08-20 21:01 | Hospitalist Progress Note ---
Date of Service August 20, 2023 Assessment & Plan (1) Fall: Plan: Patient suffered multiple falls. 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 He does have hallu cinations associate with vision loss. ecstasy in drug screen. 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 will continue above treatment. Patient remains confused. 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 Typically on empagliflozin, glipizide. Now on insulin sliding scale. Most recent A1c is 6.8 Plan need snf placement. Family is supportive of more supervised environment Admission and Anticipated Discharge Date Admission Date: August 06, 2023 Subjective 68 yo male reports no new symptoms. Patient does not appear to be confused. Review of Systems Review of Systems: All systems reviewed & are unremarkable except as noted in HPI & below Physical Exam Physical Exam: Constitutional: well developed, well nourished, cooperative and comfortable Eyes: PERRL, conjunctivae normal, anicteric sclerae ENMT: external ear and nose normal, oropharynx normal Neck: trachea midline, no thyromegaly Respiratory: normal respiratory effort, lungs clear to auscultation Cardiovascular: Rate/Rhythm: regular rate and regular rhythm Extremities: no edema Gastrointestinal (Abdomen): Inspection/Auscultation: abdomen normal to inspection Percussion/Palpation: abdomen soft; abdomen nontender Skin: no rash Psych: confused Results & Data Results & Data Vital Signs (Past 12 Hours) Vital Signs Temp Pulse Resp BP Pulse Ox O2 Del Method 08/20/23 14:39 36.4 C L 79 16 100/62 95 Room Air PG Care Time/CCT Total # of Minutes Spent Total Time Spent with Patient: Total time spent is greater than 50% in coordination of care (as documented) at patient's floor/unit and/or counseling patient: Coding Level of Care Code 98765 SUB INP/OBS CARE 2/35MIN Diagnoses Fall W19.XXXA HIV disease B20 Terrance Bonnet syndrome H53.16 Hypertension I10 Type 2 diabetes mellitus E11.9
--- NOTE | 2023-08-21 23:00 | Hospitalist Progress Note ---
Date of Service August 21, 2023 Assessment & Plan (1) Fall: Plan: Patient suffered multiple falls. 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 He does have hallu cinations associate with vision loss. ecstasy in drug screen. 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 will continue above treatment. Patient remains confused. Continue above antibiotics reviewed blood work on 08/17 will hold decrease opiates due to concern over metabolic encephalopathy Patient appears stable on 08/20 Patient does not meet criteria for inpatient rehab. 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 Typically on empagliflozin, glipizide. Now on insulin sliding scale. Most recent A1c is 6.8 Plan need snf placement. Family is supportive of more supervised environment Admission and Anticipated Discharge Date Admission Date: August 06, 2023 Subjective 68 yo male reports no new symptoms. Review of Systems Review of Systems: All systems reviewed & are unremarkable except as noted in HPI & below Physical Exam Physical Exam: Constitutional: well developed, well nourished, cooperative and comfortable Eyes: PERRL, conjunctivae normal, anicteric sclerae ENMT: external ear and nose normal, oropharynx normal Neck: trachea midline, no thyromegaly Respiratory: normal respiratory effort, lungs clear to auscultation Cardiovascular: Rate/Rhythm: regular rate and regular rhythm Extremities: no edema Gastrointestinal (Abdomen): Inspection/Auscultation: abdomen normal to inspection Percussion/Palpation: abdomen soft; abdomen nontender Skin: no rash Psych: confused Results & Data Results & Data Vital Signs (Past 12 Hours) Vital Signs Temp Pulse Resp BP Pulse Ox O2 Del Method 08/21/23 20:23 36.5 C 76 16 104/66 95 Room Air 08/21/23 14:40 36.4 C L 85 16 107/64 95 Room Air PG Care Time/CCT Total # of Minutes Spent Total Time Spent with Patient: Total time spent is greater than 50% in coordination of care (as documented) at patient's floor/unit and/or counseling patient: Coding Level of Care Code 80515 SUB INP/OBS CARE 2/35MIN Diagnoses Fall W19.XXXA HIV disease B20 Terrance Bonnet syndrome H53.16 Hypertension I10 Type 2 diabetes mellitus E11.9
[2023-08-22 07:57] LABS: Hemoglobin 13.5 g/dl (14.0-18.0); Mean Corpuscular Hemoglobin 33.3 pg (25.0-34.0); Mean Corpuscular Hgb Conc 33.8 g/dL (32.0-36.0); Mean Corpuscular Volume 98.8 fL (80.0-100.0); Mean Platelet Volume 9.3 fL (9.4-12.4); Platelet Count 212 K/uL (130-400); RDW Coefficient of Variation 12.6 % (11.5-14.5); RDW Standard Deviation 45.7 fL (36.4-46.3); Red Blood Count 4.05 M/uL (4.70-6.10); White Blood Count 5.64 K/ul (4.8-10.8)
[2023-08-22 08:16] LABS: Anion Gap 6 (3-11); BUN Creatinine Ratio 28.6 (10-20); Blood Urea Nitrogen 26 mg/dl (6-23); C Reactive Protein < 0.50 mg/dl (0-0.5); Calcium 9.2 mg/dl (8.6-10.3); Carbon Dioxide 26 mmol/L (21-32); Chloride 105 mmol/L (98-107); Creatinine Clr Calc Pharmacy 78.5 ml/min; Est GFR (African American) 98.6 ml/min; Est GFR (Non-African American) 85.1 ml/min; Glucose 148 mg/dl (70-99(Fasting)); Potassium 4.4 mmol/L (3.5-5.1); Sodium 137 mmol/L (136-145)
--- NOTE | 2023-08-22 21:49 | Hospitalist Progress Note ---
Date of Service August 22, 2023 Assessment & Plan (1) Fall: Plan: Patient suffered multiple falls. 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 He does have hallu cinations associate with vision loss. ecstasy in drug screen. 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 will continue above treatment. Patient remains confused. Continue above antibiotics reviewed blood work on 08/17 will hold decrease opiates due to concern over metabolic encephalopathy Patient appears stable on 08/20 Patient has no longer been confused since 08/20. He has hallucinations but realizes them as such. Patient does not meet criteria for inpatient rehab. 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 Typically on empagliflozin, glipizide. Now on insulin sliding scale. Most recent A1c is 6.8 Plan need snf placement. Family is supportive of more supervised environment Admission and Anticipated Discharge Date Admission Date: August 06, 2023 Subjective Patient reports no new symptoms Patient reports seeing hallucinations, but he now realizes that these are not real. Review of Systems Review of Systems: All systems reviewed & are unremarkable except as noted in HPI & below Physical Exam Physical Exam: Constitutional: well developed, well nourished, cooperative and comfortable Eyes: PERRL, conjunctivae normal, anicteric sclerae ENMT: external ear and nose normal, oropharynx normal Skin: no rash Psych: no longer confused Results & Data Results & Data Vital Signs (Past 12 Hours) Vital Signs Temp Pulse Pulse Resp BP Pulse Ox O2 Del Method 08/22/23 20:39 36.7 C 88 18 112/70 96 Room Air 08/22/23 14:49 36.4 C L 80 16 105/64 96 Room Air PG Care Time/CCT Total # of Minutes Spent Total Time Spent with Patient: Total time spent is greater than 50% in coordination of care (as documented) at patient's floor/unit and/or counseling patient: Coding Level of Care Code 61345 SUB INP/OBS CARE 235MIN Diagnoses Fall W19.XXXA HIV disease B20 Terrance Bonnet syndrome H53.16 Hypertension I10 Type 2 diabetes mellitus E11.9
[2023-08-23 08:15] LABS: Hematocrit (blood only) 40.1 % (42.0-52.0); Hemoglobin 13.8 g/dl (14.0-18.0); Mean Corpuscular Hemoglobin 33.5 pg (25.0-34.0); Mean Corpuscular Hgb Conc 34.4 g/dL (32.0-36.0); Mean Corpuscular Volume 97.3 fL (80.0-100.0); Mean Platelet Volume 9.2 fL (9.4-12.4); Platelet Count 220 K/uL (130-400); RDW Coefficient of Variation 12.6 % (11.5-14.5); RDW Standard Deviation 44.6 fL (36.4-46.3); Red Blood Count 4.12 M/uL (4.70-6.10); White Blood Count 5.37 K/ul (4.8-10.8)
[2023-08-23 08:33] LABS: BUN Creatinine Ratio 25.6 (10-20); Calcium 9.4 mg/dl (8.6-10.3); Creatinine Clr Calc Pharmacy 83.1 ml/min; Est GFR (African American) 101.8 ml/min; Est GFR (Non-African American) 87.9 ml/min; Potassium 4.5 mmol/L (3.5-5.1)
--- NOTE | 2023-08-23 18:42 | Hospitalist Progress Note ---
Date of Service August 23, 2023 Assessment & Plan (1) Fall: Plan: Patient suffered multiple falls. 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 He does have hallu cinations associate with vision loss. ecstasy in drug screen. 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 Typically on empagliflozin, glipizide. Now on insulin sliding scale. Most recent A1c is 6.8 Plan need snf placement. Family is supportive of more supervised environment Attempt to remove Del Valle catheter on 08/23/2023 tamsulosin initiated in the evening, postvoid residuals ordered to be checked Admission and Anticipated Discharge Date Admission Date: August 06, 2023 Subjective Patient reports no new symptoms Patient reports seeing hallucinations, but he now realizes that these are not real. Patient is now agreeable to having Del Valle catheter removed Physical Exam Physical Exam: pt is awake and alert he has healing wounds on legs, none look particularity worrisome for infection cardiac is regular, lungs are clear Results & Data Results & Data Vital Signs (Past 12 Hours) Vital Signs Temp Pulse Resp BP Pulse Ox O2 Del Method 08/23/23 14:56 97.3 F L 74 16 111/67 96 Room Air 08/23/23 09:03 97.5 F L 80 16 116/75 95 Room Air Laboratory Results Reviewed CBC reviewed chemistry PG Care Time/CCT Total # of Minutes Spent Total Time Spent with Patient: Total time spent is greater than 50% in coordination of care (as documented) at patient's floor/unit and/or counseling patient: Coding Level of Care Code 03430 SUB INP/OBS CARE 2/35MIN Diagnoses Fall W19.XXXA HIV disease B20 Terrance Bonnet syndrome H53.16 Hypertension I10 Type 2 diabetes mellitus E11.9
[2023-08-23] MEDS: TAMSULOSIN HCL 0.4 MG CAP PO SCH (21:24)
--- NOTE | 2023-08-24 17:34 | Hospitalist Progress Note ---
Date of Service August 24, 2023 Assessment & Plan (1) Fall: Plan: Patient suffered multiple falls. 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 He does have hallu cinations associate with vision loss. ecstasy in drug screen. 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 Typically on empagliflozin, glipizide. Now on insulin sliding scale. Most recent A1c is 6.8 Plan need snf placement. Family is supportive of more supervised environment Attempt to remove Pal catheter on 08/23/2023 tamsulosin initiated in the evening, postvoid residuals ordered to be checked Admission and Anticipated Discharge Date Admission Date: August 06, 2023 Subjective Patient reports no new symptoms Patient reports seeing hallucinations, but he now realizes that these are not real. pt is urinating well after pal removed and flomax started Physical Exam Physical Exam: pt is awake and alert he has healing wounds on legs, none look particularity worrisome for infection cardiac is regular, lungs are clear Results & Data Results & Data Vital Signs (Past 12 Hours) Vital Signs Temp Pulse Resp BP BP Pulse Ox O2 Del Method 08/24/23 14:58 97.7 F 80 16 115/70 98 Room Air 08/24/23 07:47 97.7 F 79 16 110/72 98 Room Air PG Care Time/CCT Total # of Minutes Spent Total Time Spent with Patient: Total time spent is greater than 50% in coordination of care (as documented) at patient's floor/unit and/or counseling patient: Coding Level of Care Code 03327 SUB INP/OBS CARE 2/35MIN Diagnoses Fall W19.XXXA HIV disease B20 Terrance Bonnet syndrome H53.16 Hypertension I10 Type 2 diabetes mellitus E11.9
--- NOTE | 2023-08-25 15:36 | Hospitalist Progress Note ---
Date of Service August 25, 2023 Assessment & Plan (1) Fall: Plan: Patient suffered multiple falls. 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 He does have hallu cinations associate with vision loss. ecstasy in drug screen. 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 Hallucinations are bothersome to the patient we will try some Hx Zyprexa cautiously given his recent delirium. Will try very low-dose at 2.5 at bedtime and see if it improves any of his symptoms. (4) Hypertension: Plan: chronic and stable -currently on aspirin, atorvastatin, ezetimibe, lisinopril, metoprolol (5) Type 2 diabetes mellitus: Plan: ADA diet. Typically on empagliflozin, glipizide. Now on insulin sliding scale. Most recent A1c is 6.8 Plan need snf placement. Family is supportive of more supervised environment Attempt to remove Pal catheter on 08/23/2023 tamsulosin initiated in the evening, postvoid residuals ordered to be checked Admission and Anticipated Discharge Date Admission Date: August 06, 2023 Subjective Patient reports no new symptoms Patient reports seeing hallucinations, but he now realizes that these are not real. pt is urinating well after pal removed and flomax started Physical Exam Physical Exam: pt is awake and alert he has healing wounds on legs, none look particularity worrisome for infection cardiac is regular, lungs are clear Results & Data Results & Data Vital Signs (Past 12 Hours) Vital Signs Temp Pulse Resp BP Pulse Ox O2 Del Method 08/25/23 14:02 97.7 F 65 16 104/61 93 Room Air 08/25/23 07:06 98.2 F 82 16 90/53 L 96 Room Air PG Care Time/CCT Total # of Minutes Spent Total Time Spent with Patient: Total time spent is greater than 50% in coordination of care (as documented) at patient's floor/unit and/or counseling patient: Coding Level of Care Code 86452 SUB INP/OBS CARE 05/24MIN Diagnoses Fall W19.XXXA HIV disease B20 Terrance Bonnet syndrome H53.16 Hypertension I10 Type 2 diabetes mellitus E11.9
[2023-08-25] MEDS: LIDOCAINE 5% 1 PATCH TD STA (18:50)
[2023-08-26] MEDS: LIDOCAINE 5% 1 PATCH TD SCH (08:33)
--- NOTE | 2023-08-26 14:01 | Hospitalist Progress Note ---
Date of Service August 26, 2023 Assessment & Plan (1) Fall: Plan: Patient suffered multiple falls. 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 He does have hallu cinations associated with chronic vision loss. does have injury contusion to his right shoulder and chest wall, no fractures on imaging, pain control with Lidoderm is avoiding medications that cause confusion Concern for metabolic encephalopathy from urinary tract infection present on admission patient found to have Enterococcus faecalis urinary tract infection which is sensitive to many medications Unsure as to his cause of metabolic encephalopathy. 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 Hallucinations are bothersome to the patient no improvement with Zyprexa dosing (4) Hypertension: Plan: chronic and stable -currently on aspirin, atorvastatin, ezetimibe, lisinopril, metoprolol (5) Type 2 diabetes mellitus: Plan: ADA diet. Typically on empagliflozin, glipizide. Now on insulin sliding scale. Most recent A1c is 6.8 Plan need snf placement. Family is supportive of more supervised environment Attempt to remove Pal catheter on 08/23/2023 tamsulosin initiated in the evening, no issues since removal Admission and Anticipated Discharge Date Admission Date: August 06, 2023 Subjective Patient reports no new symptoms Patient reports seeing hallucinations, but he now realizes that these are not real., No improvement with hallucinations with Zyprexa pt is urinating well after pal removed and flomax started Right shoulder pain improved with Lidoderm patch Physical Exam Physical Exam: pt is awake and alert he has healing wounds on legs, none look particularity worrisome for infection cardiac is regular, lungs are clear Results & Data Results & Data Vital Signs (Past 12 Hours) Vital Signs Temp Pulse Resp BP BP Pulse Ox O2 Del Method 08/26/23 08:00 65 136/95 08/26/23 07:06 97.9 F 65 16 159/80 H 92 Room Air PG Care Time/CCT Total # of Minutes Spent Total Time Spent with Patient: Total time spent is greater than 50% in coordination of care (as documented) at patient's floor/unit and/or counseling patient: Coding Level of Care Code 63289 SUB INP/OBS CARE 05/24MIN Diagnoses Fall W19.XXXA HIV disease B20 Terrance Bonnet syndrome H53.16 Hypertension I10 Type 2 diabetes mellitus E11.9
--- NOTE | 2023-08-27 16:48 | Hospitalist Progress Note ---
Date of Service August 27, 2023 Assessment & Plan (1) Fall: Plan: Patient suffered multiple falls. 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 He does have hallu cinations associated with chronic vision loss. does have injury contusion to his right shoulder and chest wall, no fractures on imaging, pain control with Lidoderm is avoiding medications that cause confusion Concern for metabolic encephalopathy from urinary tract infection present on admission patient found to have Enterococcus faecalis urinary tract infection which is sensitive to many medications Unsure as to his cause of metabolic encephalopathy. 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 Hallucinations are bothersome to the patient no improvement with Zyprexa dosing (4) Hypertension: Plan: chronic and stable -currently on aspirin, atorvastatin, ezetimibe, lisinopril, metoprolol (5) Type 2 diabetes mellitus: Plan: ADA diet. Typically on empagliflozin, glipizide. Now on insulin sliding scale. Most recent A1c is 6.8 Plan need snf placement. Family is supportive of more supervised environment removed Pal catheter on 08/23/2023, tamsulosin initiated in the evening, no issues since removal Admission and Anticipated Discharge Date Admission Date: August 06, 2023 Subjective Patient reports no new symptoms Patient reports seeing hallucinations, but he now realizes that these are not real., No improvement with hallucinations with Zyprexa pt is urinating well after pal removed and flomax started Right shoulder pain improved with Lidoderm patch Physical Exam Physical Exam: pt is awake and alert he has healing wounds on legs, none look particularity worrisome for infection cardiac is regular, lungs are clear Results & Data Results & Data Vital Signs (Past 12 Hours) Vital Signs Temp Pulse Resp BP Pulse Ox O2 Del Method 08/27/23 15:34 97.9 F 83 16 101/63 95 Room Air 08/27/23 07:25 97.5 F L 90 18 108/69 96 Room Air PG Care Time/CCT Total # of Minutes Spent Total Time Spent with Patient: Total time spent is greater than 50% in coordination of care (as documented) at patient's floor/unit and/or counseling patient: Coding Level of Care Code 35096 SUB INP/OBS CARE 05/24MIN Diagnoses Fall W19.XXXA HIV disease B20 Terrance Bonnet syndrome H53.16 Hypertension I10 Type 2 diabetes mellitus E11.9
[2023-08-28] MEDS: IBUPROFEN 200 MG/10 ML UDC PO PRN (17:03)
--- NOTE | 2023-08-29 17:05 | Hospitalist Progress Note ---
Date of Service August 29, 2023 Assessment & Plan (1) Fall: Plan: Patient suffered multiple falls. 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 He does have hallucinations associated with chronic vision loss. does have injury contusion to his right shoulder and chest wall, no fractures on imaging, pain control with Lidoderm is avoiding medications that cause co nfusion Concern for metabolic encephalopathy from urinary tract infection present on admission patient found to have Enterococcus faecalis urinary tract infection which is sensitive to many medications Unsure as to his cause of metabolic encephalopathy. 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 Hallucinations are bothersome to the patient no improvement with Zyprexa dosing (4) Hypertension: Plan: chronic and stable -currently on aspirin, atorvastatin, ezetimibe, lisinopril, metoprolol (5) Type 2 diabetes mellitus: Plan: ADA diet. Typically on empagliflozin, glipizide. Now on insulin sliding scale. Most recent A1c is 6.8 Plan need snf placement. Family is supportive of more supervised environment removed Pal catheter on 08/23/2023, tamsulosin initiated in the evening, no issues since removal Admission and Anticipated Discharge Date Admission Date: August 06, 2023 Subjective Patient reports no new symptoms Patient reports seeing hallucinations, but he now realizes that these are not real., No improvement with hallucinations with Zyprexa pt is urinating well after pal removed and flomax started Right shoulder pain improved with Lidoderm patch Physical Exam Physical Exam: pt is awake and alert he has healing wounds on legs, none look particularity worrisome for infection cardiac is regular, lungs are clear Results & Data Results & Data Vital Signs (Past 12 Hours) Vital Signs Temp Pulse Resp BP Pulse Ox O2 Del Method 08/29/23 16:28 97.7 F 89 18 93/61 L 96 Room Air 08/29/23 08:08 97.7 F 92 H 18 102/72 95 Room Air PG Care Time/CCT Total # of Minutes Spent Total Time Spent with Patient: Total time spent is greater than 50% in coordination of care (as documented) at patient's floor/unit and/or counseling patient: Coding Level of Care Code 77469 SUB INP/OBS CARE 05/24MIN Diagnoses Fall W19.XXXA HIV disease B20 Terrance Bonnet syndrome H53.16 Hypertension I10 Type 2 diabetes mellitus E11.9
--- NOTE | 2023-08-30 14:11 | Discharge Summary ---
Date of Service August 30, 2023 Admission HPI Per Admitting Provider 68 yo male This is a 68-year-old male from [place] with a previous history of syphilis, HIV on HAART, hypertension, type 2 diabetes, polyneuropathy anxiety depression, who was brought to the hospital today after he suffered multiple falls. His mental status has been altered. Patient appears to have been cooperative during the ED and also during my discussion.He reports he does have hallucinations which are likely from his Terrance Bonnet syndrome. [facility] is concerned about him being able to care for himself there. Patient reports to have pain in his right shoulder. Principal Diagnosis fall Discharge Exam Constitutional: well developed, well nourished, cooperative and comfortable Eyes: PERRL, conjunctivae normal, anicteric sclerae ENMT: external ear and nose normal, oropharynx normal Skin: no rash Psych: no longer confused Discharge Data Allergies Allergy/AdvReac Type Severity Reaction Status Date / Time Penicillins Allergy Intermediate RASH Verified 08/06/23 00:22 metformin AdvReac Intermediate Diarrhea Verified 08/06/23 00:22 Consultations 08/06/23 08:24 ED Decision to Admit Stat 08/07/23 11:54 Consult Behavioral Health Liaison Routine Ordered Studies 08/05/23 23:16 CT chest diagnostic w con Stat 08/10/23 16:15 US doppler leg [US arterial duplex LE BI] Routine Hospital Course (1) Fall: Patient suffered multiple falls. 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 He does have hallucinations associated with chronic vision loss. does have injury contusion to his right shoulder and chest wall, no fractures on imaging, pain control with Lidoderm is avoiding medications that cause confusion Concern for metabolic encephalopathy from urinary tract infection present on admission patient found to have Enterococcus faecalis urinary tract infection which is sensitive to many medications Unsure as to his cause of metabolic encephalopathy. 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 Hallucinations are bothersome to the patient no improvement with Zyprexa dosing (4) Hypertension: chronic and stable -currently on aspirin, atorvastatin, ezetimibe, lisinopril, metoprolol (5) Type 2 diabetes mellitus: ADA diet. Typically on empagliflozin, glipizide. Now on insulin sliding scale. Most recent A1c is 6.8 Plan need snf placement. Family is supportive of more supervised environment removed [place] catheter on 08/23/2023, tamsulosin initiated in the evening, no issues since removal Total Time Total Time Spent Total Time Spent (In Minutes): 32 Discharge Plan Discharge Items Patient Disposition: Personal [facility] Reason For Visit: Hallucinations Discharge Diagnosis: delerium resolved Activity: Resume your previous activity Non-emergency contact: Primary Care Provider Call non-emergency contact if: your symptoms worsen Follow-up/Referrals: Wendy Garcia MD [Primary Care Provider] - Diet: Regular Addtl Attending Provider Instructions: please follow up with your local primary care in one to two weeks Pending Studies at Discharge: No Stand-Alone Forms: My Apprity, Smoking Cessation Skilled Items Patient informed of condition?: Yes DNR: No Discharge Level of Care: Other Communicable Disease: Yes Discharge Prognosis: Stable Lines: None Urinary Catheter: No Medications and DC Order Prescriptions: New tamsulosin 0.4 mg Capsule 0.4 mg PO HS Qty: 30 3RF acetaminophen 325 mg Tablet 650 mg PO QID PRN (Reason: pain) Qty: 90 0RF lidocaine 5 % Adhesive Patch,Medicated 1 patch transdermal QAM Qty: 15 0RF PNV [id number] 90 mg iron- 1 mg-200 mg capsule 1 cap PO DAILY Qty: 30 4RF Continued Biktarvy 50-200-25 mg tablet 1 tab PO DAILY venlafaxine 225 mg tablet extended release 24hr 225 mg PO QAM Qty: 90 3RF atorvastatin 40 mg tablet 40 mg PO HS Qty: 90 3RF (DME) blood-glucose meter Misc See Rx Instructions .ROUTE .MEDSUPPLY Qty: 1 0RF Rx Instructions: Use to test blood sugars twice a day metoprolol succinate 50 mg tablet extended release 24 hr 25 mg PO QAM Qty: 30 3RF (DME) OneTouch Ultra Test Strip See Rx Instructions .Route Qty: 200 3RF Rx Instructions: Test blood sugars twice a day aspirin 81 mg tablet,delayed release (DR/EC) 81 mg PO HS Qty: 30 0RF Rx Instructions: UNSURE IF PT STILL TAKING pantoprazole 40 mg tablet,delayed release (DR/EC) 40 mg PO QAM Qty: 90 3RF nitroglycerin 0.4 mg tablet, sublingual 0.4 mg SL Q5M PRN (Reason: chest pain) Qty: 30 0RF Rx Instructions: UNSURE IF PT STILL TAKING oxybutynin chloride 5 mg tablet extended release 24hr 5 mg PO QAM Qty: 90 3RF lisinopril 2.5 mg tablet 2.5 mg PO QAM Qty: 30 3RF ezetimibe [Zetia] 10 mg tablet 10 mg PO HS Qty: 90 3RF bupropion HCl 300 mg tablet extended release 24 hr 300 mg PO QAM Qty: 90 3RF Rx Instructions: TOTAL DOSE 450 MG--TAKES WITH 150 MG TAB. bupropion HCl 150 mg tablet extended release 24 hr 150 mg PO QAM Qty: 90 3RF Rx Instructions: TOTAL DOSE 450 MG--TAKES WITH 300 MG TAB. Jardiance 25 mg tablet 25 mg PO QAM Qty: 90 3RF Changed glipizide 5 mg tablet 5 mg PO BID Qty: 60 5RF Discontinued cholecalciferol (vitamin D3) 5,000 unit tablet 5,000 units PO QAM Rx Instructions: UNSURE IF PT IS STILL TAKING vit A-vit C-vit [id number] 7,[id number] [id number] tablet 1 tab PO PM Rx Instructions: UNSURE IF PT STILL TAKING cyanocobalamin (vitamin B-12) [Vitamin B-12] 1,000 mcg tablet 1,000 mcg PO QAM Qty: 90 3RF Rx Instructions: UNSURE IF PT STILL TAKING No Action (DME) lancets [OneTouch UltraSoft Lancets] Misc See Dose Instructions .ROUTE .MEDSUPPLY Qty: 200 3RF Dose Instruction: As directed Rx Instructions: test 2 times daily Discharge Orders: Discharge Order (Routine); Ordered 08/30/23 Ordered By: Sami Bernabe Admission Data Admit Date/Time: 08/06/23 08:44 Attending Provider: Alpesh Sequeira Admit Provider: Alpesh Sequeira Primary Care Provider: Wendy Garcia V. Other Providers: Alpesh Sequeira; Shannon,; Pilar Felix,Rehab Other Interventions: Discharge Summary Assessment (RN) Last Done: 08/30/23 09:58 Coding Level of Care Code 85961 INP/OBS DISCH >30 MIN Diagnoses Fall W19.XXXA HIV disease B20 Terrance Bonnet syndrome H53.16 Hypertension I10 Type 2 diabetes mellitus E11.9
== END 2023-08-30 11:22 | disposition home or self-care (01) | DRG 124 ==
LOC: ED 22:31 → SUATTDRO 08-06 08:44 → EDINP 08-06 08:44 → 3N 08-07 01:33